=== PATIENT | female | born 1940 | race Caucasian/White ===

== ENCOUNTER 2024-02-07 16:25 | Emergency (ER) | payer OTHER ==
--- OUTSIDE RECORDS SUMMARY | 2024-02-07 16:35 | XMS REPORT | Continuity of Care Document ---
Author Name Unknown Address [address] [facility] [address] [place] [address] [facility] Address [address] [facility] [address] [place] [address] Care Team Providers Care Customer Relations Consultant Name Role Phone Loyda Mcdonough MD Primary Care Physician [phone] LOYDA MCDONOUGH Attending Clinician Unavailable LOYDA MCDONOUGH Attending Clinician Unavailable CAITLYN ROSARIO Attending Clinician UnavailCAITLYN Dunne Attending Clinician UnavailJERRY Nelson Attending Clinician UnavailCaitlyn Dunne MD Attending Clinician [phone] Loyda Mcdonough MD Attending Clinician [phone] Brianna Grant PA-C Attending Clinician [phone] 2, [facility] Attending Clinician Unavailable Kumar Choe PTA Attending Clinician UnavailJerry Rueda MD Attending Clinician [phone] Caitlyn Rosario MD Attending Clinician [phone] Betty Grande MD Attending Clinician [phone] BETTY GRANDE Attending Clinician Unavailable Doctor Unassigned, [place] Attending Clinician U navailraúl Pob, [facility] Main Attending Clinician Unavailchayo mccall Lab, Ang - Db Attending Clinician Unavailable Marko SCHOFIELD, Devaughn Attending Clinician [phone] Ashtyn JESUS, Doron Attending Clinician [phone] Ebleonidas HOT WORT SETTLER, Meseret Attending Clinician [phone] Unknown, Attending Attending Clinician Unavailab MESERET Bay Attending Clinician Unavailable OBI-MARIE, DEVAUGHN Attending Clinician Unavailab jaqueline Nurse, Zuhair Salcedo Attending Clinician Unavailable DORON ORTIZ Attending Clinician Unavailab le 2, [facility] Attending Clinician Unavailable Stacey SCHOFIELD, Jerry Jackson Attending Clinician [phone] Aysha Alonso MD Attending Clinician [phone] TRACEY CEDENO Attending Clinician Unavailable Wilian SCHOFIELD, Tracey Attending Clinician [phone] UNKNOWN, ATTENDING Attending Clinician Unavailab CASSIA Ram Attending Clinician Unavailable Nimflorence HOT WORT SETTLER, Tennille L Attending Clinician [phone] KATIE CORTEZ Attending Clinician Unavailable Cortez PAC, Katie S Attending Clinician [phone] MARITZA BEAR Attending Clinician Unava ilable TENNILLE GARCIA L Attending Clinician Unavailable King REENA MD, Mason Jorge Attending Clinician [phone] Flaquito YU, Vlad Lou Attending Clinician Unavail able VENECIA CALLOWAY Attending Clinician Unavailable Rahul SCHOFIELD, Rene Lou Attending Clinician +- [phone] Venecia Calloway DO Attending Clinician [phone] MARIA DOLORES GAXIOLA Attending Clinician Unavailab Amelia Moore PA-C Attending Clinician [phone] Maria Dolores Lombardi Attending Clinician + [phone] Russel PACKevin Attending Clinician [phone] Nurse, Zuhair [facility] Attending Clinician Un available MINESH STANFORD Attending Clinician Unavail able Cassia Parker MD Attending Clinician [phone] Maritza Bear MD Attending Clinician [phone] Nurse, Pepito Pob Immunization Attending Clinician Unavailable Minesh Stanford DO Attending Clinician [phone] LIAM ROSS Attending Clinician Unavailable LILLI HANSON Attending Clinician Unavailable Raju_P Attending Clinician Unavailable CAITLYN ROSARIO Admitting Clinician UnavailCaitlyn Dunne MD Admitting Clinician [phone] Caitlyn Rosario MD Admitting Clinician [phone] JERRY IBARRA Admitting Clinician UnavailCASSIA Vasques Admitting Clinician Unavailable VENECIA CALLOWAY Admitting Clinician Unavailable Venecia Calloway DO Admitting Clinician [phone] Raju_P Admitting Clinician Unavailable Payers Payer Name Policy Type Policy Number Effective Date Expirati on Date Source MEDICARE PART A \\T\\ B [id number] 2004 00:00:00 FOR LIFE [id number] 2022 00:00:00 FOR LIFE [id number] 2020 00:00:00 FOR LIFE [id number] 2004 00:00:00 [place] [employer] [id number] 2004 00:00:00 [facility] [id number] 2008 00:00:00 Problems Condition Name Condition Details Condition Category Status Onset Date Resolution Date Last Treatment Date Treating Clinician Comments Source Preoperati ve cardiovasc ular examinatio n Preoperati ve cardiovasc ular examinatio n Disease Active 10-23 00:00: 00 [facility] Prediabete s Prediabete s Disease Active 10-23 00:00: 00 [facility] Pre-op testing Pre-op testing Disease Active 09-11 00:00: 00 [facility] Primary osteoarthr itis of left hip Primary osteoarthr itis of left hip Disease Active 09-11 00:00: 00 [facility] Allergic rhinitis Allergic rhinitis Disease Active 07-15 00:00: 00 [facility] 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 Disease Active 07-15 00:00: 00 [facility] Hearing loss Hearing loss Disease Active 07-15 00:00: 00 [facility] Hemangioma Hemangioma Disease Active 07-15 00:00: 00 [facility] Impacted cerumen Impacted cerumen Disease Active 07-15 00:00: 00 [facility] Tinnitus Tinnitus Disease Active 07-15 00:00: 00 [facility] Pneumonia due to COVID-19 virus Pneumonia due to COVID-19 virus Disease Active 2021-04 00:00: 00 [facility] Troponin I above reference range Troponin I above reference range Disease Active 2021-04 00:00: 00 [facility] Other chest pain Other chest pain Disease Active 2021-04 00:00: 00 [facility] Coronaviru s infection Coronaviru s infection Disease Active 2021-04 00:00: 00 [facility] Primary osteoarthr itis of left knee Primary osteoarthr itis of left knee Disease Active 10-27 00:00: 00 [facility] GERD (gastroeso phageal reflux disease) GERD (gastroeso phageal reflux disease) Disease Active 07-02 00:00: 00 [facility] Vitamin D deficiency Vitamin D deficiency Disease Active 07-02 00:00: 00 Overview: Formattin g of this note might be different from the original. ICD10 Diagnosis Term Nut Former Utility [facility] Osteoporos is Osteoporos is Disease Active 07-02 00:00: 00 [facility] Mixed hyperlipid emia Mixed hyperlipid emia Disease Active 07-02 00:00: 00 [facility] Actinic keratosis Actinic keratosis Disease Active 07-02 00:00: 00 [facility] Allergies, Adverse Reactions, Alerts Allergy Name Allergy Type Status Severity Reaction(s) Onset Date Inactive Date Treating Clinician Comments Source NSAIDS (NON-EHSAN ROIDAL ANTI-INF LAMMATOR Y DRUG) Drug Class Active Med Palpitations 9-16 00:00: 00 [facility] Nsaids (Non-Ehsan roidal Anti-Inf lammator y Drug) Propensi ty to adverse reaction s to drug Active Palpitations 16 00:00: 00 [facility] LATEX DRUG INGREDI Active ITCHING 216 00:00: 00 [facility] Latex Propensi ty to adverse reaction s Active Itching 16 00:00: 00 [facility] TRAMADOL DRUG INGREDI Active Dizziness 04-20 00:00: 00 [facility] Tramadol Propensi ty to adverse reaction s Active Nausea and/or Vomiting 04-20 00:00: 00 [facility] CODEINE DRUG INGREDI Active Dizziness 11-08 00:00: 00 [facility] Codeine Propensi ty to adverse reaction s Active Dizziness 11-08 00:00: 00 [facility] Social History Social Habit Start Date Stop Date Quantity Comments Source [facility]ION [facility] Alcoholic beverage intake 2024-01-11 00:00:00 2024-01-11 00:00:00 Current non-drinker of alcohol (finding) [facility] Tobacco use and exposure 2023-09-08 00:00:00 2023-09-08 00:00:00 Smokeless tobacco non-user [facility] History of Social function 2023-05-25 00:00:00 2023-05-25 00:00:00 [facility] Alcohol intake 2023-05-25 00:00:00 2023-05-25 00:00:00 Current non-drinker of alcohol (finding) [facility] Exposure to SARS-CoV-2 (event) 2022-08-28 00:00:00 2022-09-07 11:49:00 Not sure [facility] History SDOH Food Worry 2022-02-23 00:00:00 2022-02-23 00:00:00 1 [facility] History SDOH Food Scarcity 2022-02-23 00:00:00 2022-02-23 00:00:00 1 [facility] History SDOH Transport Med 2022-02-23 00:00:00 2022-02-23 00:00:00 2 [facility] History SDOH Transport Non-Med 2022-02-23 00:00:00 2022-02-23 00:00:00 2 [facility] Tobacco Comment 2022-02-20 00:00:00 2022-02-20 00:00:00 Quit in her 60's [facility] History of tobacco use 1974-04-17 00:00:00 Cigarette Smoker [facility] Sex assigned at 1940 00:00:00 1940 00:00:00 [facility] Smoking Status Start Date Stop Date Source Ex-smoker 2023-09-08 00:00:00 2023-09-08 [facility] Ordered Medication Name Filled Medication Name Start Date Stop Date Current Medication? Ordering Clinician Indication Dosage Frequency Signature (SIG) Comments Components Source HYDROcodone -acetaminop hen 5-325 mg tablet 01-09 00:00: 00 01-17 04:59 :00 Yes [id number] 1{tbl} Take 1 tablet by mouth every 6 (six) hours as needed for Pain (scale 4-6) for up to 7 days. Indication s: acute pain [facility] FENTanyl (PF) (SUBLIMAZE) injection 25 mcg 01-07 16:29: 54 01-07 21:50 :05 No 25ug 25 mcg, Slow IV Push, Q5MIN PRN, 4 doses, Starting on Mon01/08/24 at 1129, Until Mon01/08/24 at 1650, Routine, Pain Scale 4-6, PACU [facility] ondansetron (ZOFRAN (PF)) injection 4 mg 01-07 16:29: 54 01-07 21:50 :05 No 4mg 4 mg, Slow IV Push, PRN, 1 dose, Starting on Mon01/08/24 at 1129, Until Mon01/08/24 at 1650, Routine, Nausea and Vomiting (N/V), PACU [facility] BUPivacaine liposome (PF) (EXPAREL (PF)) 1.3 % (13.3 mg/mL) 266 mg, bupivacaine -epinephrin e-pf (SENSORCAIN E W/EPINEPHRI NE) 0.25 %-1:200,000 30 mL, NaCl 0.9% (NS) 70 mL 01-07 14:56: 00 01-07 16:14 :56 No PRN, Starting on Mon01/08/24 at 0956, Intra-op [facility] sodium chloride 0.9 % irrigation solution 01-07 14:51: 00 01-07 16:14 :56 No PRN, Starting on Mon01/08/24 at 0951, Until Mon01/08/24 at 1114, Intra-op [facility] celecoxib (CELEBREX) capsule 400 mg 01-07 12:45: 00 01-07 12:54 :00 No 400mg 400 mg, Oral, ONCE, 1 dose, On Mon01/08/24 at 0745, Routine, DSU Pre-op [facility] gabapentin (NEURONTIN) capsule 300 mg 01-07 12:45: 00 01-07 12:55 :00 No 300mg 300 mg, Oral, ONCE, 1 dose, On Mon01/08/24 at 0745, Routine, DSU Pre-op [facility] lactated ringers IV infusion 1,000 mL 01-07 12:45: 00 01-07 12:55 :00 No 1000mL at 42 mL/hr, 1,000 mL, IV Infusion, ONCE, 1 dose, On Mon01/08/24 at 0745, Routine, DSU Pre-op [facility] tranexamic acid (CYKLOKAPRO N) 1,000 mg in NaCl 0.9% (NS) 250 mL piggyback 01-07 05:00: 00 01-07 16:59 :00 Yes 1000mg [facility] aspirin 325 mg tablet 01-07 00:00: 00 02-05 04:59 :00 Yes [id number] 325mg Take 1 tablet by mouth in the morning and 1 tablet in the evening. Take with meals. Do all this for 28 days. [facility] HYDROcodone -acetaminop hen 5-325 mg tablet 01-07 00:00: 00 01-08 00:00 :00 No [id number] 1{tbl} Take 1 tablet by mouth every 6 (six) hours as needed for Pain (scale 4-6) or Pain (scale 7-10) for up to 7 days. Indication s: acute pain [facility] dexamethaso ne (DECADRON PHOSPHATE) injection 09-17 14:41: 00 09-17 15:07 :37 No PRN, Starting on Mon09/18/23 at 0941, Until Mon09/18/23 at 1007, Routine, Intra-op [facility] bupivacaine (preserv free) 0.5% (SENSORCAIN E MPF) injection 09-17 14:41: 00 09-17 15:07 :37 No PRN, Starting on Mon09/18/23 at 0941, Until Mon09/18/23 at 1007, Routine, Intra-op [facility] lactated ringers IV infusion 1,000 mL 09-17 14:00: 00 09-17 14:23 :00 No 1000mL at 42 mL/hr, 1,000 mL, IV Infusion, ONCE, 1 dose, On Mon09/18/23 at 0900, Routine, DSU Pre-op [facility] multivitami n tablet 09-17 11:24: 13 Yes 1{tbl} Take 1 tablet by mouth in the morning. Complete women's 50+, [employer] brand. [facility] turmeric root extract 500 mg Cap 09-17 11:24: 13 01-07 00:00 :00 No 500mg Take 500 mg by mouth 2 (two) times daily. [facility] aspirin 81 mg Cap 2-08 08:23: 51 Yes 3{capsu le} Take 3 capsules by mouth at bedtime. [facility] Cholecalcif melissa, Vitamin D3, (VITAMIN D3) 1,000 unit Cap 2-08 08:23: 51 09-07 00:00 :00 No 2000U Take 2 capsules by mouth in the morning. [facility] atorvastati n 20 mg tablet 12-27 00:00: 00 09-07 00:00 :00 No [id number] 20mg Take 1 tablet by mouth at bedtime. [facility] atorvastati n 20 mg tablet 12-21 00:00: 00 Yes [id number] 20mg Take 1 tablet by mouth at bedtime. [facility] Diclofenac Sodium (VOLTAREN) 1 % gel 10-21 00:00: 00 01-07 00:00 :00 No [id number] Take 2-4 grams three times a day as needed for pain [facility] meclizine 25 mg tablet 10-21 00:00: 00 09-07 00:00 :00 No [id number] 25mg Take 1 tablet by mouth 3 (three) times daily as needed for Dizziness or Nausea. [facility] NaCl 0.9% (NS) bolus infusion 1,000 mL 10-16 17:30: 00 10-16 17:57 :00 No 1000mL at 999 mL/hr, 1,000 mL, IV Infusion, ONCE, 1 dose, On 10/16/22 at 1230, VICTORIA [facility] meclizine (TRAVEL-EAS E (MECLIZINE) ) tablet 25 mg 10-16 16:45: 00 10-16 16:53 :00 No 25mg 25 mg, Oral, ONCE, 1 dose, On 10/16/22 at 1145, VICTORIA [facility] aspirin 81 mg Cap 10-16 15:40: 18 09-07 00:00 :00 No 3{capsu le} Take 3 capsules by mouth at bedtime. [facility] turmeric root extract 500 mg Cap 05 09:39: 06 Yes 500mg Take 500 mg by mouth 2 (two) times daily. [facility] loratadine 10 mg tablet 07-20 09:39: 06 Yes 10mg Take 1 tablet by mouth in the morning. [facility] turmeric root extract 500 mg Cap 07-20 09:39: 06 Yes 500mg Take 500 mg by mouth 2 (two) times daily. [facility] cyclobenzap rine 10 mg tablet 04-20 00:00: 00 09-07 00:00 :00 No [id number] 10mg Take 1 tablet by mouth at bedtime. [facility] predniSONE 20 mg tablet 2021-04 00:00: 00 04-20 00:00 :00 No [id number] 20mg Take 1 tablet by mouth in the morning. [facility] bromphenira mine-pseudo ephedrine-D M (BROMFED DM) 2-30-10 mg/5 mL syrup 2021-04 00:00: 00 04-20 00:00 :00 No [id number] 5mL Take 5 mL by mouth 3 (three) times daily as needed for Congestion /Allergies or Cough. [facility] zinc sulfate 50 mg zinc (220 mg) capsule 2021-04 00:00: 00 03-03 05:59 :00 No [id number] 50mg Take 1 capsule by mouth in the morning for 7 days. [facility] multivitami n tablet 2021-04 18:08: 11 Yes 1{tbl} Take 1 tablet by mouth daily. Complete women's 50+, [employer] brand. [facility] Cholecalcif melissa, Vitamin D3, (VITAMIN D3) 1,000 unit Cap 2021-04 18:08: 11 Yes 2{capsu le} Take 2 Caps by mouth daily. [facility] turmeric root extract 500 mg Cap 2021-04 18:08: 11 Yes 500mg Take 500 mg by mouth 2 (two) times daily. [facility] loratadine 10 mg tablet 2021-04 18:08: 11 09-07 00:00 :00 No 10mg Take 1 tablet by mouth in the morning. [facility] benzonatate 100 mg capsule 2021-04 00:00: 00 03-25 05:59 :00 No [id number] 200mg Take 2 capsules by mouth every 8 (eight) hours as needed for Cough for up to 30 days. [facility] ascorbic acid, vitamin C, 500 mg tablet 2021-04 00:00: 00 03-02 05:59 :00 No [id number] 500mg Take 1 tablet by mouth in the morning for 7 days. [facility] cholecalcif melissa (vitamin D3) tablet 2,000 Units 2021-04 15:00: 00 Yes 2000U 2,000 Units, Oral, DAILY, First dose (after last modificati on) on Mon02/21/22 at 0900, Until Discontinu ed, Routine [facility] aspirin chewable tablet 81 mg 2021-04 15:00: 00 Yes 81mg 81 mg, Oral, DAILY, First dose on Mon02/21/22 at 0900, Until Discontinu ed, Routine [facility] aspirin tablet 325 mg 2021-04 15:00: 00 02-21 02:12 :48 No 325mg 325 mg, Oral, DAILY, First dose on Mon02/21/22 at 0900, Until Discontinu ed, Routine [facility] aspirin tablet 325 mg 2021-04 03:00: 00 02-21 02:54 :00 No 325mg 325 mg, Oral, ONCE, 1 dose, On 02/20/22 at 2100, Routine [facility] zinc sulfate (ORAZINC) capsule 50 mg 2021-04 02:45: 00 Yes 50mg 50 mg, Oral, DAILY, First dose on 02/20/22 at 2045, Until Discontinu ed, Routine [facility] ascorbic acid (vitamin C) (VITAMIN C) tablet 500 mg 2021-04 02:45: 00 Yes 500mg 500 mg, Oral, BID, First dose on 02/20/22 at 2044, Until Discontinu ed, [facility] azithromy[facility] (ZITHROMAX) tablet 500 mg 2021-04 02:45: 00 02-22 17:25 :08 No 500mg 500 mg, Oral, DAILY, 5 doses, First dose on Mon02/20/22 at 204, Last dose on Mon02/24/22 at 0900, VICTORIA
Re ason for Anti-Infec tive: Empiric Therapy for Suspected Infection< br>Empiric Therapy Site: Respirator y
Durat ion of therapy: 5 days [facility] cholecalcif melissa (vitamin D3) tablet 1,000 Units 2021-04 02:45: 00 02-21 03:30 :16 No 1000U 1,000 Units, Oral, DAILY, First dose on 02/20/22 at 2044, Until Discontinu ed, Routine [facility] acetaminoph en (TYLENOL) tablet 650 mg 2021-04 02:36: 50 Yes 650mg 650 mg, Oral, Q6HPRN, Starting on 02/20/22 at 2035, Until Discontinu ed, Routine, Temp > 38.5 C, Pain (scale 1-3) [facility] dextrometho rphan-guaif enesin (ROBITUSSIN DM) 10-100 mg/5 mL solution 10 mL 2021-04 02:36: 38 Yes 10mL 10 mL, Oral, Q6HPRN, Starting on 02/20/22 at 2035, Until Discontinu ed, Routine, Cough [facility] enoxaparin (LOVENOX) injection 40 mg 2021-04 23:00: 00 Yes 40mg 40 mg, Subcutaneo us, DAILY, First dose on 02/20/22 at 1700, Until Discontinu ed, Routine [facility] ibuprofen (MOTRIN IB) tablet 200 mg 2021-04 22:34: 41 Yes 200mg 200 mg, Oral, Q4HPRN, Starting on 02/20/22 at 1634, Until Discontinu ed, Routine, Temp > 38.5 C [facility] NaCl 0.9% (NS) IV infusion 1,000 mL 2021-04 19:45: 00 02-21 14:00 :49 No 1000mL at 125 mL/hr, IV Infusion, CONTINUOUS , Starting on 02/20/22 at 1345, Until 02/21/22 at 0800, Routine [facility] iopamidol (ISOVUE 370-500 mL) injection 100 mL 2021-04 19:30: 00 02-20 19:45 :00 No [id number] 100mL 100 mL, Intravenou s, ONCE, 1 dose, On 02/20/22 at 1345, Routine [facility] molnupiravi r 200 mg capsule 2021-04 00:00: 00 02-22 00:00 :00 No [id number] 800mg Take 4 capsules by mouth every 12 (twelve) hours. [facility] benzonatate 100 mg capsule 2021-04 00:00: 00 02-22 00:00 :00 No [id number] 200mg Take 2 capsules by mouth every 8 (eight) hours as needed for Cough. [facility] multivitami n tablet 04-20 08:27: 15 Yes 1{tbl} Take 1 tablet by mouth daily. Complete women's 50+, [employer] brand. [facility] Cholecalcif melissa, Vitamin D3, (VITAMIN D3) 1,000 unit Cap 04-20 08:27: 15 Yes 2{capsu le} Take 2 Caps by mouth daily. [facility] turmeric root extract 500 mg Cap 04-20 08:27: 15 Yes 500mg Take 500 mg by mouth 2 (two) times daily. [facility] loratadine 10 mg tablet 04-20 08:27: 15 Yes 10mg Take 10 mg by mouth daily. [facility] mupirocin 2 % ointment 04-20 00:00: 00 09-07 00:00 :00 No [id number] Apply to area(s) 3 (three) times daily. [facility] Diclofenac Sodium (VOLTAREN) 1 % gel 04-20 00:00: 00 10-21 00:00 :00 No [id number] 2g gel BID to Left knee. [facility] triamcinolo ne (NASACORT) 55 mcg nasal inhaler 2017-04 00:00: 00 Yes [id number] 2{spray } Use 2 Sprays in each nostril daily. [facility] cycloSPORIN E 0.05 % drops 2016-04 00:00: 00 Yes [id number] 1[drp] Place 1 Drop in both eyes every 12 (twelve) hours. [facility] Immunizations Ordered Immunization Name Filled Immunization Name Date Status Comments Source Influenza Virus Vaccine,quad Im,preserve Free 65+ (FLUAD) 2023-01-20 00:00:00 Completed [facility] Influenza Virus Vaccine,quad Im,preserve Free 65+ (FLUAD) 2023-01-20 00:00:00 Completed [facility] Influenza Virus Vaccine,quad Im,preserve Free 65+ (FLUAD) 2023-01-20 00:00:00 Completed [facility] Remdesivir 2022-02-22 00:00:00 Completed [facility] Remdesivir 2022-02-22 00:00:00 Completed [facility] Remdesivir 2022-02-22 00:00:00 Completed [facility] Remdesivir 2022-02-22 00:00:00 Completed [facility] Remdesivir 2022-02-22 00:00:00 Completed [facility] Remdesivir 2022-02-22 00:00:00 Completed [facility] Remdesivir 2022-02-22 00:00:00 Completed [facility] Remdesivir 2022-02-22 00:00:00 Completed [facility] Remdesivir 2022-02-22 00:00:00 Completed [facility] Remdesivir 2022-02-22 00:00:00 Completed [facility] Remdesivir 2022-02-22 00:00:00 Completed [facility] Remdesivir 2022-02-22 00:00:00 Completed [facility] Remdesivir 2022-02-22 00:00:00 Completed [facility] Remdesivir 2022-02-22 00:00:00 Completed [facility] Remdesivir 2022-02-22 00:00:00 Completed [facility] Remdesivir 2022-02-22 00:00:00 Completed [facility] Remdesivir 2022-02-22 00:00:00 Completed [facility] Remdesivir 2022-02-22 00:00:00 Completed [facility] Remdesivir 2022-02-22 00:00:00 Completed [facility] Remdesivir 2022-02-22 00:00:00 Completed [facility] Remdesivir 2022-02-22 00:00:00 Completed [facility] Remdesivir 2022-02-22 00:00:00 Completed [facility] Remdesivir 2022-02-22 00:00:00 Completed [facility] Remdesivir 2022-02-22 00:00:00 Completed [facility] Remdesivir 2022-02-22 00:00:00 Completed [facility] Remdesivir 2022-02-22 00:00:00 Completed [facility] Remdesivir 2022-02-22 00:00:00 Completed [facility] Remdesivir 2022-02-21 00:00:00 Completed [facility] Remdesivir 2022-02-21 00:00:00 Completed [facility] Remdesivir 2022-02-21 00:00:00 Completed [facility] Remdesivir 2022-02-21 00:00:00 Completed [facility] Remdesivir 2022-02-21 00:00:00 Completed [facility] Remdesivir 2022-02-21 00:00:00 Completed [facility] Remdesivir 2022-02-21 00:00:00 Completed [facility] Remdesivir 2022-02-21 00:00:00 Completed [facility] Remdesivir 2022-02-21 00:00:00 Completed [facility] Remdesivir 2022-02-21 00:00:00 Completed [facility] Remdesivir 2022-02-21 00:00:00 Completed [facility] Remdesivir 2022-02-21 00:00:00 Completed [facility] Remdesivir 2022-02-21 00:00:00 Completed [facility] Remdesivir 2022-02-21 00:00:00 Completed [facility] Remdesivir 2022-02-21 00:00:00 Completed [facility] Remdesivir 2022-02-21 00:00:00 Completed [facility] Remdesivir 2022-02-21 00:00:00 Completed [facility] Remdesivir 2022-02-21 00:00:00 Completed [facility] Remdesivir 2022-02-21 00:00:00 Completed [facility] Remdesivir 2022-02-21 00:00:00 Completed [facility] Remdesivir 2022-02-21 00:00:00 Completed Remdesivir 2022-02-21 00:00:00 Completed Remdesivir 2022-02-21 00:00:00 Completed Remdesivir 2022-02-21 00:00:00 Completed [facility] Remdesivir 2022-02-21 00:00:00 Completed [facility] Remdesivir 2022-02-21 00:00:00 Completed [facility] Remdesivir 2022-02-20 00:00:00 Completed [facility] Remdesivir 2022-02-20 00:00:00 Completed [facility] Remdesivir 2022-02-20 00:00:00 Completed [facility] Remdesivir 2022-02-20 00:00:00 Completed [facility] Remdesivir 2022-02-20 00:00:00 Completed [facility] Remdesivir 2022-02-20 00:00:00 Completed [facility] Remdesivir 2022-02-20 00:00:00 Completed [facility] Remdesivir 2022-02-20 00:00:00 Completed [facility] Remdesivir 2022-02-20 00:00:00 Completed [facility] Remdesivir 2022-02-20 00:00:00 Completed [facility] Remdesivir 2022-02-20 00:00:00 Completed [facility] Remdesivir 2022-02-20 00:00:00 Completed [facility] Remdesivir 2022-02-20 00:00:00 Completed [facility] Remdesivir 2022-02-20 00:00:00 Completed [facility] Remdesivir 2022-02-20 00:00:00 Completed [facility] Remdesivir 2022-02-20 00:00:00 Completed [facility] Remdesivir 2022-02-20 00:00:00 Completed [facility] Remdesivir 2022-02-20 00:00:00 Completed [facility] Remdesivir 2022-02-20 00:00:00 Completed [facility] Remdesivir 2022-02-20 00:00:00 Completed [facility] Remdesivir 2022-02-20 00:00:00 Completed [facility] Remdesivir 2022-02-20 00:00:00 Completed [facility] Remdesivir 2022-02-20 00:00:00 Completed [facility] Remdesivir 2022-02-20 00:00:00 Completed [facility] Remdesivir 2022-02-20 00:00:00 Completed [facility] Remdesivir 2022-02-20 00:00:00 Completed [facility] Influenza High Dose Quad 2021-12-18 00:00:00 Completed [facility] Influenza High Dose Quad 2021-12-18 00:00:00 Completed [facility] Influenza High Dose Quad 2021-12-18 00:00:00 Completed [facility] Influenza High Dose Quad 2021-12-18 00:00:00 Completed [facility] Influenza High Dose Quad 2021-12-18 00:00:00 Completed [facility] Influenza High Dose Quad 2021-12-18 00:00:00 Completed [facility] Influenza High Dose Quad 2021-12-18 00:00:00 Completed [facility] Influenza High Dose Quad 2021-12-18 00:00:00 Completed [facility] Influenza High Dose Quad 2021-12-18 00:00:00 Completed [facility] Influenza High Dose Quad 2021-12-18 00:00:00 Completed [facility] Influenza High Dose Quad 2021-12-18 00:00:00 Completed [facility] Influenza High Dose Quad 2021-12-18 00:00:00 Completed [facility] Influenza High Dose Quad 2021-12-18 00:00:00 Completed Influenza High Dose Quad 2021-12-18 00:00:00 Completed Influenza High Dose Quad 2021-12-18 00:00:00 Completed SARS-COV-2 COVID-19 MODERNA 0.25ML BOOSTER VACCINE 2021-02-09 00:00:00 Completed [facility] SARS-COV-2 COVID-19 MODERNA 0.25ML BOOSTER VACCINE 2021-02-09 00:00:00 Completed [facility] SARS-COV-2 COVID-19 MODERNA 0.25ML BOOSTER VACCINE 2021-02-09 00:00:00 Completed [facility] SARS-COV-2 COVID-19 MODERNA 0.25ML BOOSTER VACCINE 2021-02-09 00:00:00 Completed [facility] SARS-COV-2 COVID-19 MODERNA 0.25ML BOOSTER VACCINE 2021-02-09 00:00:00 Completed [facility] SARS-COV-2 COVID-19 MODERNA 0.25ML BOOSTER VACCINE 2021-02-09 00:00:00 Completed [facility] SARS-COV-2 COVID-19 MODERNA 0.25ML BOOSTER VACCINE 2021-02-09 00:00:00 Completed [facility] SARS-COV-2 COVID-19 MODERNA 0.25ML BOOSTER VACCINE 2021-02-09 00:00:00 Completed [facility] SARS-COV-2 COVID-19 MODERNA 0.25ML BOOSTER VACCINE 2021-02-09 00:00:00 Completed [facility] SARS-COV-2 COVID-19 MODERNA 0.25ML BOOSTER VACCINE 2021-02-09 00:00:00 Completed [facility] SARS-COV-2 COVID-19 MODERNA 0.25ML BOOSTER VACCINE 2021-02-09 00:00:00 Completed [facility] SARS-COV-2 COVID-19 MODERNA 0.25ML BOOSTER VACCINE 2021-02-09 00:00:00 Completed [facility] SARS-COV-2 COVID-19 MODERNA 0.25ML BOOSTER VACCINE 2021-02-09 00:00:00 Completed [facility] SARS-COV-2 COVID-19 MODERNA 0.25ML BOOSTER VACCINE 2021-02-09 00:00:00 Completed [facility] SARS-COV-2 COVID-19 MODERNA 0.25ML BOOSTER VACCINE 2021-02-09 00:00:00 Completed [facility] SARS-COV-2 COVID-19 MODERNA 0.25ML BOOSTER VACCINE 2021-02-09 00:00:00 Completed [facility] SARS-COV-2 COVID-19 MODERNA 0.25ML BOOSTER VACCINE 2021-02-09 00:00:00 Completed [facility] SARS-COV-2 COVID-19 MODERNA 0.25ML BOOSTER VACCINE 2021-02-09 00:00:00 Completed [facility] SARS-COV-2 COVID-19 MODERNA 0.25ML BOOSTER VACCINE 2021-02-09 00:00:00 Completed [facility] SARS-COV-2 COVID-19 MODERNA 0.25ML BOOSTER VACCINE 2021-02-09 00:00:00 Completed [facility] SARS-COV-2 COVID-19 MODERNA 0.25ML BOOSTER VACCINE 2021-02-09 00:00:00 Completed [facility] SARS-COV-2 COVID-19 MODERNA 0.25ML BOOSTER VACCINE 2021-02-09 00:00:00 Completed [facility] SARS-COV-2 COVID-19 MODERNA 0.25ML BOOSTER VACCINE 2021-02-09 00:00:00 Completed [facility] SARS-COV-2 COVID-19 MODERNA BOOSTER VACCINE 2021-02-09 00:00:00 Completed [facility] SARS-COV-2 COVID-19 MODERNA BOOSTER VACCINE 2021-02-09 00:00:00 Completed [facility] SARS-COV-2 COVID-19 MODERNA BOOSTER VACCINE 2021-02-09 00:00:00 Completed [facility] SARS-COV-2 COVID-19 MODERNA BOOSTER VACCINE 2021-02-09 00:00:00 Completed [facility] SARS-COV-2 COVID-19 MODERNA BOOSTER VACCINE 2021-02-09 00:00:00 Completed [facility] SARS-COV-2 COVID-19 MODERNA 0.25ML BOOSTER VACCINE 2021-02-09 00:00:00 Completed [facility] SARS-COV-2 COVID-19 MODERNA 0.25ML BOOSTER VACCINE 2021-02-09 00:00:00 Completed [facility] SARS-COV-2 COVID-19 MODERNA 0.25ML BOOSTER VACCINE 2021-02-09 00:00:00 Completed [facility] SARS-COV-2 COVID-19 MODERNA 0.25ML BOOSTER VACCINE 2021-02-09 00:00:00 Completed [facility] SARS-COV-2 COVID-19 MODERNA 0.25ML BOOSTER VACCINE 2021-02-09 00:00:00 Completed [facility] Influenza High Dose Quad 2021-01-09 00:00:00 Completed [facility] Influenza High Dose Quad 2021-01-09 00:00:00 Completed [facility] Influenza High Dose Quad 2021-01-09 00:00:00 Completed [facility] Influenza High Dose Quad 2021-01-09 00:00:00 Completed [facility] Influenza High Dose Quad 2021-01-09 00:00:00 Completed [facility] Influenza High Dose Quad 2021-01-09 00:00:00 Completed [facility] Influenza High Dose Quad 2021-01-09 00:00:00 Completed [facility] Influenza High Dose Quad 2021-01-09 00:00:00 Completed [facility] Influenza High Dose Quad 2021-01-09 00:00:00 Completed [facility] Influenza High Dose Quad 2021-01-09 00:00:00 Completed [facility] Influenza High Dose Quad 2021-01-09 00:00:00 Completed [facility] Influenza High Dose Quad 2021-01-09 00:00:00 Completed [facility] Influenza High Dose Quad 2021-01-09 00:00:00 Completed [facility] Influenza High Dose Quad 2021-01-09 00:00:00 Completed Influenza High Dose Quad 2021-01-09 00:00:00 Completed Influenza High Dose Quad 2021-01-09 00:00:00 Completed Influenza High Dose 2020-12-16 00:00:00 Completed [facility] Influenza High Dose 2020-12-16 00:00:00 Completed [facility] Influenza High Dose 2020-12-16 00:00:00 Completed [facility] Influenza High Dose 2020-12-16 00:00:00 Completed [facility] Influenza High Dose 2020-12-16 00:00:00 Completed [facility] Influenza High Dose 2020-12-16 00:00:00 Completed [facility] Influenza High Dose 2020-12-16 00:00:00 Completed [facility] Influenza High Dose 2020-12-16 00:00:00 Completed [facility] Influenza High Dose 2020-12-16 00:00:00 Completed [facility] Influenza High Dose 2020-12-16 00:00:00 Completed [facility] Influenza High Dose 2020-12-16 00:00:00 Completed [facility] Influenza High Dose 2020-12-16 00:00:00 Completed [facility] Influenza High Dose 2020-12-16 00:00:00 Completed [facility] Influenza High Dose 2020-12-16 00:00:00 Completed [facility] Influenza High Dose 2020-12-16 00:00:00 Completed [facility] Influenza High Dose 2020-12-16 00:00:00 Completed [facility] Influenza High Dose 2020-12-16 00:00:00 Completed [facility] Influenza High Dose 2020-12-16 00:00:00 Completed [facility] Influenza High Dose 2020-12-16 00:00:00 Completed [facility] Influenza High Dose 2020-12-16 00:00:00 Completed [facility] Influenza High Dose 2020-12-16 00:00:00 Completed [facility] Influenza, High-Dose, Trivalent, PF (FLUZONE) 2020-12-16 00:00:00 Completed Influenza, High-Dose, Trivalent, PF (FLUZONE) 2020-12-16 00:00:00 Completed Influenza, High-Dose, Trivalent, PF (FLUZONE) 2020-12-16 00:00:00 Completed Influenza High Dose 2020-12-16 00:00:00 Completed [facility] Influenza High Dose 2020-12-16 00:00:00 Completed [facility] Influenza High Dose 2020-12-16 00:00:00 Completed [facility] Influenza High Dose 2020-12-16 00:00:00 Completed [facility] Influenza High Dose 2020-12-16 00:00:00 Completed [facility] Influenza High Dose 2020-12-16 00:00:00 Completed [facility] Influenza High Dose 2020-12-16 00:00:00 Completed [facility] Influenza High Dose 2020-12-16 00:00:00 Completed [facility] Influenza High Dose 2020-12-16 00:00:00 Completed [facility] Influenza High Dose 2020-12-16 00:00:00 Completed [facility] TDAP 2020-08-21 00:00:00 Completed [facility] TDAP 2020-08-21 00:00:00 Completed [facility] TDAP 2020-08-21 00:00:00 Completed [facility] TDAP 2020-08-21 00:00:00 Completed [facility] TDAP 2020-08-21 00:00:00 Completed [facility] TDAP 2020-08-21 00:00:00 Completed [facility] TDAP 2020-08-21 00:00:00 Completed [facility] TDAP 2020-08-21 00:00:00 Completed [facility] TDAP 2020-08-21 00:00:00 Completed [facility] TDAP 2020-08-21 00:00:00 Completed [facility] TDAP 2020-08-21 00:00:00 Completed [facility] TDAP 2020-08-21 00:00:00 Completed [facility] TDAP 2020-08-21 00:00:00 Completed [facility] TDAP 2020-08-21 00:00:00 Completed [facility] TDAP 2020-08-21 00:00:00 Completed [facility] TDAP 2020-08-21 00:00:00 Completed [facility] TDAP 2020-08-21 00:00:00 Completed [facility] TDAP 2020-08-20 00:00:00 Completed [facility] TDAP 2020-08-20 00:00:00 Completed [facility] TDAP 2020-08-20 00:00:00 Completed [facility] TDAP 2020-08-20 00:00:00 Completed [facility] TDAP 2020-08-20 00:00:00 Completed [facility] TDAP 2020-08-20 00:00:00 Completed [facility] TDAP 2020-08-20 00:00:00 Completed [facility] TDAP 2020-08-20 00:00:00 Completed [facility] TDAP 2020-08-20 00:00:00 Completed [facility] TDAP 2020-08-20 00:00:00 Completed [facility] TDAP 2020-08-20 00:00:00 Completed [facility] TDAP 2020-08-20 00:00:00 Completed [facility] TDAP 2020-08-20 00:00:00 Completed [facility] TDAP 2020-08-20 00:00:00 Completed [facility] TDAP 2020-08-20 00:00:00 Completed TDAP 2020-08-20 00:00:00 Completed TDAP 2020-08-20 00:00:00 Completed SARS-COV-2 COVID-19 MODERNA 12+ YRS VACCINE 2020-05-19 00:00:00 Completed [facility] SARS-COV-2 COVID-19 MODERNA 12+ YRS VACCINE 2020-05-19 00:00:00 Completed [facility] SARS-COV-2 COVID-19 MODERNA 12+ YRS VACCINE 2020-05-19 00:00:00 Completed [facility] SARS-COV-2 COVID-19 MODERNA 12+ YRS VACCINE 2020-05-19 00:00:00 Completed [facility] SARS-COV-2 COVID-19 MODERNA 12+ YRS VACCINE 2020-05-19 00:00:00 Completed [facility] SARS-COV-2 COVID-19 MODERNA 12+ YRS VACCINE 2020-05-19 00:00:00 Completed [facility] SARS-COV-2 COVID-19 MODERNA 12+ YRS VACCINE 2020-05-19 00:00:00 Completed [facility] SARS-COV-2 COVID-19 MODERNA 12+ YRS VACCINE 2020-05-19 00:00:00 Completed [facility] SARS-COV-2 COVID-19 MODERNA 12+ YRS VACCINE 2020-05-19 00:00:00 Completed [facility] SARS-COV-2 COVID-19 MODERNA 12+ YRS VACCINE 2020-05-19 00:00:00 Completed [facility] SARS-COV-2 COVID-19 MODERNA 12+ YRS VACCINE 2020-05-19 00:00:00 Completed [facility] SARS-COV-2 COVID-19 MODERNA 12+ YRS VACCINE 2020-05-19 00:00:00 Completed [facility] SARS-COV-2 COVID-19 MODERNA 12+ YRS VACCINE 2020-05-19 00:00:00 Completed [facility] SARS-COV-2 COVID-19 MODERNA 12+ YRS VACCINE 2020-05-19 00:00:00 Completed [facility] SARS-COV-2 COVID-19 MODERNA 12+ YRS VACCINE 2020-05-19 00:00:00 Completed [facility] SARS-COV-2 COVID-19 MODERNA 12+ YRS VACCINE 2020-05-19 00:00:00 Completed [facility] SARS-COV-2 COVID-19 MODERNA 12+ YRS VACCINE 2020-05-19 00:00:00 Completed [facility] SARS-COV-2 COVID-19 MODERNA 12+ YRS VACCINE 2020-05-19 00:00:00 Completed [facility] SARS-COV-2 COVID-19 MODERNA 12+ YRS VACCINE 2020-05-19 00:00:00 Completed [facility] SARS-COV-2 COVID-19 MODERNA 12+ YRS VACCINE 2020-05-19 00:00:00 Completed [facility] SARS-COV-2 COVID-19 MODERNA 12+ YRS VACCINE 2020-05-19 00:00:00 Completed [facility] SARS-COV-2 COVID-19 MODERNA 12+ YRS VACCINE 2020-05-19 00:00:00 Completed SARS-COV-2 COVID-19 MODERNA 12+ YRS VACCINE 2020-05-19 00:00:00 Completed SARS-COV-2 COVID-19 MODERNA 12+ YRS VACCINE 2020-05-19 00:00:00 Completed SARS-COV-2 COVID-19 MODERNA VACCINE 2020-05-19 00:00:00 Completed [facility] SARS-COV-2 COVID-19 MODERNA VACCINE 2020-05-19 00:00:00 Completed [facility] SARS-COV-2 COVID-19 MODERNA VACCINE 2020-05-19 00:00:00 Completed [facility] SARS-COV-2 COVID-19 MODERNA VACCINE 2020-05-19 00:00:00 Completed [facility] SARS-COV-2 COVID-19 MODERNA VACCINE 2020-05-19 00:00:00 Completed [facility] SARS-COV-2 COVID-19 MODERNA 12+ YRS VACCINE 2020-05-19 00:00:00 Completed [facility] SARS-COV-2 COVID-19 MODERNA 12+ YRS VACCINE 2020-05-19 00:00:00 Completed [facility] SARS-COV-2 COVID-19 MODERNA 12+ YRS VACCINE 2020-05-19 00:00:00 Completed [facility] SARS-COV-2 COVID-19 MODERNA 12+ YRS VACCINE 2020-05-19 00:00:00 Completed [facility] SARS-COV-2 COVID-19 MODERNA 12+ YRS VACCINE 2020-05-19 00:00:00 Completed [facility] SARS-COV-2 COVID-19 MODERNA 12+ YRS VACCINE 2020-04-21 00:00:00 Completed [facility] SARS-COV-2 COVID-19 MODERNA 12+ YRS VACCINE 2020-04-21 00:00:00 Completed [facility] SARS-COV-2 COVID-19 MODERNA 12+ YRS VACCINE 2020-04-21 00:00:00 Completed [facility] SARS-COV-2 COVID-19 MODERNA 12+ YRS VACCINE 2020-04-21 00:00:00 Completed [facility] SARS-COV-2 COVID-19 MODERNA 12+ YRS VACCINE 2020-04-21 00:00:00 Completed [facility] SARS-COV-2 COVID-19 MODERNA 12+ YRS VACCINE 2020-04-21 00:00:00 Completed [facility] SARS-COV-2 COVID-19 MODERNA 12+ YRS VACCINE 2020-04-21 00:00:00 Completed [facility] SARS-COV-2 COVID-19 MODERNA 12+ YRS VACCINE 2020-04-21 00:00:00 Completed [facility] SARS-COV-2 COVID-19 MODERNA 12+ YRS VACCINE 2020-04-21 00:00:00 Completed [facility] SARS-COV-2 COVID-19 MODERNA 12+ YRS VACCINE 2020-04-21 00:00:00 Completed [facility] SARS-COV-2 COVID-19 MODERNA 12+ YRS VACCINE 2020-04-21 00:00:00 Completed [facility] SARS-COV-2 COVID-19 MODERNA 12+ YRS VACCINE 2020-04-21 00:00:00 Completed [facility] SARS-COV-2 COVID-19 MODERNA 12+ YRS VACCINE 2020-04-21 00:00:00 Completed [facility] SARS-COV-2 COVID-19 MODERNA 12+ YRS VACCINE 2020-04-21 00:00:00 Completed [facility] SARS-COV-2 COVID-19 MODERNA 12+ YRS VACCINE 2020-04-21 00:00:00 Completed [facility] SARS-COV-2 COVID-19 MODERNA 12+ YRS VACCINE 2020-04-21 00:00:00 Completed [facility] SARS-COV-2 COVID-19 MODERNA 12+ YRS VACCINE 2020-04-21 00:00:00 Completed [facility] SARS-COV-2 COVID-19 MODERNA 12+ YRS VACCINE 2020-04-21 00:00:00 Completed [facility] SARS-COV-2 COVID-19 MODERNA 12+ YRS VACCINE 2020-04-21 00:00:00 Completed [facility] SARS-COV-2 COVID-19 MODERNA 12+ YRS VACCINE 2020-04-21 00:00:00 Completed [facility] SARS-COV-2 COVID-19 MODERNA 12+ YRS VACCINE 2020-04-21 00:00:00 Completed [facility] SARS-COV-2 COVID-19 MODERNA 12+ YRS VACCINE 2020-04-21 00:00:00 Completed [facility] SARS-COV-2 COVID-19 MODERNA 12+ YRS VACCINE 2020-04-21 00:00:00 Completed [facility] SARS-COV-2 COVID-19 MODERNA VACCINE 2020-04-21 00:00:00 Completed [facility] SARS-COV-2 COVID-19 MODERNA VACCINE 2020-04-21 00:00:00 Completed [facility] SARS-COV-2 COVID-19 MODERNA VACCINE 2020-04-21 00:00:00 Completed [facility] SARS-COV-2 COVID-19 MODERNA VACCINE 2020-04-21 00:00:00 Completed [facility] SARS-COV-2 COVID-19 MODERNA VACCINE 2020-04-21 00:00:00 Completed [facility] SARS-COV-2 COVID-19 MODERNA 12+ YRS VACCINE 2020-04-21 00:00:00 Completed [facility] SARS-COV-2 COVID-19 MODERNA 12+ YRS VACCINE 2020-04-21 00:00:00 Completed [facility] SARS-COV-2 COVID-19 MODERNA 12+ YRS VACCINE 2020-04-21 00:00:00 Completed [facility] SARS-COV-2 COVID-19 MODERNA 12+ YRS VACCINE 2020-04-21 00:00:00 Completed [facility] SARS-COV-2 COVID-19 MODERNA 12+ YRS VACCINE 2020-04-21 00:00:00 Completed [facility] Influenza High Dose Quad 2020-01-11 00:00:00 Completed [facility] Influenza High Dose Quad 2020-01-11 00:00:00 Completed [facility] Influenza High Dose Quad 2020-01-11 00:00:00 Completed [facility] Influenza High Dose Quad 2020-01-11 00:00:00 Completed [facility] Influenza High Dose Quad 2020-01-11 00:00:00 Completed [facility] Influenza High Dose Quad 2020-01-11 00:00:00 Completed [facility] Influenza High Dose Quad 2020-01-11 00:00:00 Completed [facility] Influenza High Dose Quad 2020-01-11 00:00:00 Completed [facility] Influenza High Dose Quad 2020-01-11 00:00:00 Completed [facility] Influenza High Dose Quad 2020-01-11 00:00:00 Completed [facility] Influenza High Dose Quad 2020-01-11 00:00:00 Completed [facility] Influenza High Dose Quad 2020-01-11 00:00:00 Completed [facility] Influenza High Dose Quad 2020-01-11 00:00:00 Completed [facility] Influenza High Dose Quad 2020-01-11 00:00:00 Completed [facility] Influenza High Dose Quad 2020-01-11 00:00:00 Completed [facility] Influenza High Dose Quad 2020-01-11 00:00:00 Completed [facility] Influenza High Dose Quad 2020-01-11 00:00:00 Completed [facility] Influenza High Dose Quad 2020-01-11 00:00:00 Completed [facility] Influenza High Dose Quad 2020-01-11 00:00:00 Completed [facility] Influenza High Dose Quad 2020-01-11 00:00:00 Completed [facility] Influenza High Dose Quad 2020-01-11 00:00:00 Completed Influenza High Dose Quad 2020-01-11 00:00:00 Completed Influenza High Dose Quad 2020-01-11 00:00:00 Completed Influenza High Dose Quad 2020-01-11 00:00:00 Completed [facility] Influenza High Dose Quad 2020-01-11 00:00:00 Completed [facility] Influenza High Dose Quad 2020-01-11 00:00:00 Completed [facility] Influenza High Dose Quad 2020-01-11 00:00:00 Completed [facility] Influenza High Dose Quad 2020-01-11 00:00:00 Completed [facility] Influenza High Dose Quad 2020-01-11 00:00:00 Completed [facility] Influenza High Dose Quad 2020-01-11 00:00:00 Completed [facility] Influenza High Dose Quad 2020-01-11 00:00:00 Completed [facility] Influenza High Dose Quad 2020-01-11 00:00:00 Completed [facility] Influenza High Dose Quad 2020-01-11 00:00:00 Completed [facility] Influenza High Dose 2018-12-17 00:00:00 Completed [facility] Influenza High Dose 2018-12-17 00:00:00 Completed [facility] Influenza High Dose 2018-12-17 00:00:00 Completed [facility] Influenza High Dose 2018-12-17 00:00:00 Completed [facility] Influenza High Dose 2018-12-17 00:00:00 Completed [facility] Influenza High Dose 2018-12-17 00:00:00 Completed [facility] Influenza High Dose 2018-12-17 00:00:00 Completed [facility] Influenza High Dose 2018-12-17 00:00:00 Completed [facility] Influenza High Dose 2018-12-17 00:00:00 Completed [facility] Influenza High Dose 2018-12-17 00:00:00 Completed [facility] Influenza High Dose 2018-12-17 00:00:00 Completed [facility] Influenza High Dose 2018-12-17 00:00:00 Completed [facility] Influenza High Dose 2018-12-17 00:00:00 Completed [facility] Influenza High Dose 2018-12-17 00:00:00 Completed [facility] Influenza High Dose 2018-12-17 00:00:00 Completed [facility] Influenza High Dose 2018-12-17 00:00:00 Completed [facility] Influenza High Dose 2018-12-17 00:00:00 Completed [facility] Influenza High Dose 2018-12-17 00:00:00 Completed [facility] Influenza High Dose 2018-12-17 00:00:00 Completed [facility] Influenza High Dose 2018-12-17 00:00:00 Completed [facility] Influenza, High-Dose, Trivalent, PF (FLUZONE) 2018-12-17 00:00:00 Completed Influenza, High-Dose, Trivalent, PF (FLUZONE) 2018-12-17 00:00:00 Completed Influenza, High-Dose, Trivalent, PF (FLUZONE) 2018-12-17 00:00:00 Completed Influenza High Dose 2018-12-17 00:00:00 Completed [facility] Influenza High Dose 2018-12-17 00:00:00 Completed [facility] Influenza High Dose 2018-12-17 00:00:00 Completed [facility] Influenza High Dose 2018-12-17 00:00:00 Completed [facility] Influenza High Dose 2018-12-17 00:00:00 Completed [facility] Influenza High Dose 2018-12-17 00:00:00 Completed [facility] Influenza High Dose 2018-12-17 00:00:00 Completed [facility] Influenza High Dose 2018-12-17 00:00:00 Completed [facility] Influenza High Dose 2018-12-17 00:00:00 Completed [facility] Influenza High Dose 2018-12-17 00:00:00 Completed [facility] Zoster Vaccine Recombinant 2018-06-19 00:00:00 Completed [facility] Zoster Vaccine Recombinant 2018-06-19 00:00:00 Completed [facility] Zoster Vaccine Recombinant 2018-06-19 00:00:00 Completed [facility] Zoster Vaccine Recombinant 2018-06-19 00:00:00 Completed [facility] Zoster Vaccine Recombinant 2018-06-19 00:00:00 Completed [facility] Zoster Vaccine Recombinant 2018-06-19 00:00:00 Completed [facility] Zoster Vaccine Recombinant 2018-06-19 00:00:00 Completed [facility] Zoster Vaccine Recombinant 2018-06-19 00:00:00 Completed [facility] Zoster Vaccine Recombinant 2018-06-19 00:00:00 Completed [facility] Zoster Vaccine Recombinant 2018-06-19 00:00:00 Completed [facility] Zoster Vaccine Recombinant 2018-06-19 00:00:00 Completed [facility] Zoster Vaccine Recombinant 2018-06-19 00:00:00 Completed [facility] Zoster Vaccine Recombinant 2018-06-19 00:00:00 Completed [facility] Zoster Vaccine Recombinant 2018-06-19 00:00:00 Completed [facility] Zoster Vaccine Recombinant 2018-06-19 00:00:00 Completed [facility] Zoster Vaccine Recombinant 2018-06-19 00:00:00 Completed [facility] Zoster Vaccine Recombinant 2018-06-19 00:00:00 Completed [facility] Zoster Vaccine Recombinant 2018-06-19 00:00:00 Completed [facility] Zoster Vaccine Recombinant 2018-06-19 00:00:00 Completed [facility] Zoster Vaccine Recombinant 2018-06-19 00:00:00 Completed [facility] Zoster Vaccine Recombinant 2018-06-19 00:00:00 Completed [facility] Zoster Vaccine Recombinant 2018-06-19 00:00:00 Completed Zoster Vaccine Recombinant 2018-06-19 00:00:00 Completed Zoster Vaccine Recombinant 2018-06-19 00:00:00 Completed Zoster Vaccine Recombinant 2018-06-19 00:00:00 Completed [facility] Zoster Vaccine Recombinant 2018-06-19 00:00:00 Completed [facility] Zoster Vaccine Recombinant 2018-06-19 00:00:00 Completed [facility] Zoster Vaccine Recombinant 2018-06-19 00:00:00 Completed [facility] Zoster Vaccine Recombinant 2018-06-19 00:00:00 Completed [facility] Zoster Vaccine Recombinant 2018-06-19 00:00:00 Completed [facility] Zoster Vaccine Recombinant 2018-06-19 00:00:00 Completed [facility] Zoster Vaccine Recombinant 2018-06-19 00:00:00 Completed [facility] Zoster Vaccine Recombinant 2018-06-19 00:00:00 Completed [facility] Zoster Vaccine Recombinant 2018-06-19 00:00:00 Completed [facility] Influenza High Dose 2018-01-14 00:00:00 Completed [facility] Influenza High Dose 2018-01-14 00:00:00 Completed [facility] Influenza High Dose 2018-01-14 00:00:00 Completed [facility] Influenza High Dose 2018-01-14 00:00:00 Completed [facility] Influenza High Dose 2018-01-14 00:00:00 Completed [facility] Influenza High Dose 2018-01-14 00:00:00 Completed [facility] Influenza High Dose 2018-01-14 00:00:00 Completed [facility] Influenza High Dose 2018-01-14 00:00:00 Completed [facility] Influenza High Dose 2018-01-14 00:00:00 Completed [facility] Influenza High Dose 2018-01-14 00:00:00 Completed [facility] Influenza High Dose 2018-01-14 00:00:00 Completed [facility] Influenza High Dose 2018-01-14 00:00:00 Completed [facility] Influenza High Dose 2018-01-14 00:00:00 Completed [facility] Influenza High Dose 2018-01-14 00:00:00 Completed [facility] Influenza High Dose 2018-01-14 00:00:00 Completed [facility] Influenza High Dose 2018-01-14 00:00:00 Completed [facility] Influenza High Dose 2018-01-14 00:00:00 Completed [facility] Influenza High Dose 2018-01-14 00:00:00 Completed [facility] Influenza High Dose 2018-01-14 00:00:00 Completed [facility] Influenza High Dose 2018-01-14 00:00:00 Completed [facility] Influenza, High-Dose, Trivalent, PF (FLUZONE) 2018-01-14 00:00:00 Completed Influenza, High-Dose, Trivalent, PF (FLUZONE) 2018-01-14 00:00:00 Completed Influenza, High-Dose, Trivalent, PF (FLUZONE) 2018-01-14 00:00:00 Completed Influenza High Dose 2018-01-14 00:00:00 Completed [facility] Influenza High Dose 2018-01-14 00:00:00 Completed [facility] Influenza High Dose 2018-01-14 00:00:00 Completed [facility] Influenza High Dose 2018-01-14 00:00:00 Completed [facility] Influenza High Dose 2018-01-14 00:00:00 Completed [facility] Influenza High Dose 2018-01-14 00:00:00 Completed [facility] Influenza High Dose 2018-01-14 00:00:00 Completed [facility] Influenza High Dose 2018-01-14 00:00:00 Completed [facility] Influenza High Dose 2018-01-14 00:00:00 Completed [facility] Influenza High Dose 2018-01-14 00:00:00 Completed [facility] Zoster Vaccine Recombinant 2017-12-29 00:00:00 Completed [facility] Zoster Vaccine Recombinant 2017-12-29 00:00:00 Completed [facility] Zoster Vaccine Recombinant 2017-12-29 00:00:00 Completed [facility] Zoster Vaccine Recombinant 2017-12-29 00:00:00 Completed [facility] Zoster Vaccine Recombinant 2017-12-29 00:00:00 Completed [facility] Zoster Vaccine Recombinant 2017-12-29 00:00:00 Completed [facility] Zoster Vaccine Recombinant 2017-12-29 00:00:00 Completed [facility] Zoster Vaccine Recombinant 2017-12-29 00:00:00 Completed [facility] Zoster Vaccine Recombinant 2017-12-29 00:00:00 Completed [facility] Zoster Vaccine Recombinant 2017-12-29 00:00:00 Completed [facility] Zoster Vaccine Recombinant 2017-12-29 00:00:00 Completed [facility] Zoster Vaccine Recombinant 2017-12-29 00:00:00 Completed [facility] Zoster Vaccine Recombinant 2017-12-29 00:00:00 Completed [facility] Zoster Vaccine Recombinant 2017-12-29 00:00:00 Completed [facility] Zoster Vaccine Recombinant 2017-12-29 00:00:00 Completed [facility] Zoster Vaccine Recombinant 2017-12-29 00:00:00 Completed [facility] Zoster Vaccine Recombinant 2017-12-29 00:00:00 Completed [facility] Zoster Vaccine Recombinant 2017-12-29 00:00:00 Completed [facility] Zoster Vaccine Recombinant 2017-12-29 00:00:00 Completed [facility] Zoster Vaccine Recombinant 2017-12-29 00:00:00 Completed [facility] Zoster Vaccine Recombinant 2017-12-29 00:00:00 Completed Zoster Vaccine Recombinant 2017-12-29 00:00:00 Completed Zoster Vaccine Recombinant 2017-12-29 00:00:00 Completed Zoster Vaccine Recombinant 2017-12-29 00:00:00 Completed [facility] Zoster Vaccine Recombinant 2017-12-29 00:00:00 Completed [facility] Zoster Vaccine Recombinant 2017-12-29 00:00:00 Completed [facility] Zoster Vaccine Recombinant 2017-12-29 00:00:00 Completed [facility] Zoster Vaccine Recombinant 2017-12-29 00:00:00 Completed [facility] Zoster Vaccine Recombinant 2017-12-29 00:00:00 Completed [facility] Zoster Vaccine Recombinant 2017-12-29 00:00:00 Completed [facility] Zoster Vaccine Recombinant 2017-12-29 00:00:00 Completed [facility] Zoster Vaccine Recombinant 2017-12-29 00:00:00 Completed [facility] Zoster Vaccine Recombinant 2017-12-29 00:00:00 Completed [facility] Influenza High Dose 2017-01-29 00:00:00 Completed [facility] Influenza High Dose 2017-01-29 00:00:00 Completed [facility] Influenza High Dose 2017-01-29 00:00:00 Completed [facility] Influenza High Dose 2017-01-29 00:00:00 Completed [facility] Influenza High Dose 2017-01-29 00:00:00 Completed [facility] Influenza High Dose 2017-01-29 00:00:00 Completed [facility] Influenza High Dose 2017-01-29 00:00:00 Completed [facility] Influenza High Dose 2017-01-29 00:00:00 Completed [facility] Influenza High Dose 2017-01-29 00:00:00 Completed [facility] Influenza High Dose 2017-01-29 00:00:00 Completed [facility] Influenza High Dose 2017-01-29 00:00:00 Completed [facility] Influenza High Dose 2017-01-29 00:00:00 Completed [facility] Influenza High Dose 2017-01-29 00:00:00 Completed [facility] Influenza High Dose 2017-01-29 00:00:00 Completed [facility] Influenza High Dose 2017-01-29 00:00:00 Completed [facility] Influenza High Dose 2017-01-29 00:00:00 Completed [facility] Influenza High Dose 2017-01-29 00:00:00 Completed [facility] Influenza High Dose 2017-01-29 00:00:00 Completed [facility] Influenza High Dose 2017-01-29 00:00:00 Completed [facility] Influenza High Dose 2017-01-29 00:00:00 Completed [facility] Influenza, High-Dose, Trivalent, PF (FLUZONE) 2017-01-29 00:00:00 Completed Influenza, High-Dose, Trivalent, PF (FLUZONE) 2017-01-29 00:00:00 Completed Influenza, High-Dose, Trivalent, PF (FLUZONE) 2017-01-29 00:00:00 Completed Influenza High Dose 2017-01-29 00:00:00 Completed [facility] Influenza High Dose 2017-01-29 00:00:00 Completed [facility] Influenza High Dose 2017-01-29 00:00:00 Completed [facility] Influenza High Dose 2017-01-29 00:00:00 Completed [facility] Influenza High Dose 2017-01-29 00:00:00 Completed [facility] Influenza High Dose 2017-01-29 00:00:00 Completed [facility] Influenza High Dose 2017-01-29 00:00:00 Completed [facility] Influenza High Dose 2017-01-29 00:00:00 Completed [facility] Influenza High Dose 2017-01-29 00:00:00 Completed [facility] Influenza High Dose 2017-01-29 00:00:00 Completed [facility] Pneumococcal 13 Conjugate, PCV13 (Prevnar 13) 2016-03-07 00:00:00 Completed [facility] Pneumococcal 13 Conjugate, PCV13 (Prevnar 13) 2016-03-07 00:00:00 Completed [facility] Pneumococcal 13 Conjugate, PCV13 (Prevnar 13) 2016-03-07 00:00:00 Completed [facility] Pneumococcal 13 Conjugate, PCV13 (Prevnar 13) 2016-03-07 00:00:00 Completed [facility] Pneumococcal 13 Conjugate, PCV13 (Prevnar 13) 2016-03-07 00:00:00 Completed [facility] Pneumococcal 13 Conjugate, PCV13 (Prevnar 13) 2016-03-07 00:00:00 Completed [facility] Pneumococcal 13 Conjugate, PCV13 (Prevnar 13) 2016-03-07 00:00:00 Completed [facility] Pneumococcal 13 Conjugate, PCV13 (Prevnar 13) 2016-03-07 00:00:00 Completed [facility] Pneumococcal 13 Conjugate, PCV13 (Prevnar 13) 2016-03-07 00:00:00 Completed [facility] Pneumococcal 13 Conjugate, PCV13 (Prevnar 13) 2016-03-07 00:00:00 Completed [facility] Pneumococcal 13 Conjugate, PCV13 (Prevnar 13) 2016-03-07 00:00:00 Completed [facility] Pneumococcal 13 Conjugate, PCV13 (Prevnar 13) 2016-03-07 00:00:00 Completed [facility] Pneumococcal 13 Conjugate, PCV13 (Prevnar 13) 2016-03-07 00:00:00 Completed [facility] Pneumococcal 13 Conjugate, PCV13 (Prevnar 13) 2016-03-07 00:00:00 Completed [facility] Pneumococcal 13 Conjugate, PCV13 (Prevnar 13) 2016-03-07 00:00:00 Completed [facility] Pneumococcal 13 Conjugate, PCV13 (Prevnar 13) 2016-03-07 00:00:00 Completed [facility] Pneumococcal 13 Conjugate, PCV13 (Prevnar 13) 2016-03-07 00:00:00 Completed [facility] Pneumococcal 13 Conjugate, PCV13 (Prevnar 13) 2016-03-07 00:00:00 Completed [facility] Pneumococcal 13 Conjugate, PCV13 (Prevnar 13) 2016-03-07 00:00:00 Completed [facility] Pneumococcal 13 Conjugate, PCV13 (Prevnar 13) 2016-03-07 00:00:00 Completed [facility] Pneumococcal 13 Conjugate, PCV13 (Prevnar 13) 2016-03-07 00:00:00 Completed [facility] Pneumococcal 13 Conjugate, PCV13 (Prevnar 13) 2016-03-07 00:00:00 Completed [facility] Pneumococcal 13 Conjugate, PCV13 (Prevnar 13) 2016-03-07 00:00:00 Completed [facility] Pneumococcal 13 Conjugate, PCV13 (Prevnar 13) 2016-03-07 00:00:00 Completed [facility] Pneumococcal 13 Conjugate, PCV13 (Prevnar 13) 2016-03-07 00:00:00 Completed [facility] Pneumococcal 13 Conjugate, PCV13 (Prevnar 13) 2016-03-07 00:00:00 Completed [facility] Pneumococcal 13 Conjugate, PCV13 (Prevnar 13) 2016-03-07 00:00:00 Completed [facility] Pneumococcal 13 Conjugate, PCV13 (Prevnar 13) 2016-03-07 00:00:00 Completed [facility] Pneumococcal 13 Conjugate, PCV13 (Prevnar 13) 2016-03-07 00:00:00 Completed [facility] Pneumococcal 13 Conjugate, PCV13 (Prevnar 13) 2016-03-07 00:00:00 Completed [facility] Pneumococcal 13 Conjugate, PCV13 (Prevnar 13) 2016-03-07 00:00:00 Completed [facility] Pneumococcal 13 Conjugate, PCV13 (Prevnar 13) 2016-03-07 00:00:00 Completed [facility] Pneumococcal 13 Conjugate, PCV13 (Prevnar 13) 2016-03-07 00:00:00 Completed [facility] Influenza Virus Vaccine 2016-02-03 00:00:00 Completed [facility] Influenza Virus Vaccine 2016-02-03 00:00:00 Completed [facility] Influenza Virus Vaccine 2016-02-03 00:00:00 Completed [facility] Influenza Virus Vaccine 2016-02-03 00:00:00 Completed [facility] Influenza Virus Vaccine 2016-02-03 00:00:00 Completed [facility] Influenza Virus Vaccine 2016-02-03 00:00:00 Completed [facility] Influenza Virus Vaccine 2016-02-03 00:00:00 Completed [facility] Influenza Virus Vaccine 2016-02-03 00:00:00 Completed [facility] Influenza Virus Vaccine 2016-02-03 00:00:00 Completed [facility] Influenza Virus Vaccine 2016-02-03 00:00:00 Completed [facility] Influenza Virus Vaccine 2016-02-03 00:00:00 Completed [facility] Influenza Virus Vaccine 2016-02-03 00:00:00 Completed [facility] Influenza Virus Vaccine 2016-02-03 00:00:00 Completed [facility] Influenza Virus Vaccine 2016-02-03 00:00:00 Completed [facility] Influenza Virus Vaccine 2016-02-03 00:00:00 Completed [facility] Influenza Virus Vaccine 2016-02-03 00:00:00 Completed [facility] Influenza Virus Vaccine 2016-02-03 00:00:00 Completed [facility] Influenza Virus Vaccine 2016-02-03 00:00:00 Completed [facility] Influenza Virus Vaccine 2016-02-03 00:00:00 Completed [facility] Influenza Virus Vaccine 2016-02-03 00:00:00 Completed [facility] Influenza Virus Vaccine 2016-02-03 00:00:00 Completed Influenza Virus Vaccine 2016-02-03 00:00:00 Completed Influenza Virus Vaccine 2016-02-03 00:00:00 Completed Influenza Virus Vaccine 2016-02-03 00:00:00 Completed [facility] Influenza Virus Vaccine 2016-02-03 00:00:00 Completed [facility] Influenza Virus Vaccine 2016-02-03 00:00:00 Completed [facility] Influenza Virus Vaccine 2016-02-03 00:00:00 Completed [facility] Influenza Virus Vaccine 2016-02-03 00:00:00 Completed [facility] Influenza Virus Vaccine 2016-02-03 00:00:00 Completed [facility] Influenza Virus Vaccine 2016-02-03 00:00:00 Completed [facility] Influenza Virus Vaccine 2016-02-03 00:00:00 Completed [facility] Influenza Virus Vaccine 2016-02-03 00:00:00 Completed [facility] Influenza Virus Vaccine 2016-02-03 00:00:00 Completed [facility] TDAP 2010-03-01 00:00:00 Completed [facility] TDAP 2010-03-01 00:00:00 Completed [facility] TDAP 2010-03-01 00:00:00 Completed [facility] TDAP 2010-03-01 00:00:00 Completed [facility] TDAP 2010-03-01 00:00:00 Completed [facility] TDAP 2010-03-01 00:00:00 Completed [facility] TDAP 2010-03-01 00:00:00 Completed [facility] TDAP 2010-03-01 00:00:00 Completed [facility] TDAP 2010-03-01 00:00:00 Completed [facility] TDAP 2010-03-01 00:00:00 Completed [facility] TDAP 2010-03-01 00:00:00 Completed [facility] TDAP 2010-03-01 00:00:00 Completed [facility] TDAP 2010-03-01 00:00:00 Completed [facility] TDAP 2010-03-01 00:00:00 Completed [facility] TDAP 2010-03-01 00:00:00 Completed [facility] TDAP 2010-03-01 00:00:00 Completed [facility] TDAP 2010-03-01 00:00:00 Completed [facility] TDAP 2010-03-01 00:00:00 Completed [facility] TDAP 2010-03-01 00:00:00 Completed [facility] TDAP 2010-03-01 00:00:00 Completed [facility] TDAP 2010-03-01 00:00:00 Completed TDAP 2010-03-01 00:00:00 Completed TDAP 2010-03-01 00:00:00 Completed TDAP 2010-03-01 00:00:00 Completed [facility] TDAP 2010-03-01 00:00:00 Completed [facility] TDAP 2010-03-01 00:00:00 Completed [facility] TDAP 2010-03-01 00:00:00 Completed [facility] TDAP 2010-03-01 00:00:00 Completed [facility] TDAP 2010-03-01 00:00:00 Completed [facility] TDAP 2010-03-01 00:00:00 Completed [facility] TDAP 2010-03-01 00:00:00 Completed [facility] TDAP 2010-03-01 00:00:00 Completed [facility] TDAP 2010-03-01 00:00:00 Completed [facility] Pneumococcal Polysaccharide, PPSV23 (PNEUMOVAX) 2006-03-08 00:00:00 Completed [facility] Pneumococcal Polysaccharide, PPSV23 (PNEUMOVAX) 2006-03-08 00:00:00 Completed [facility] Pneumococcal Polysaccharide, PPSV23 (PNEUMOVAX) 2006-03-08 00:00:00 Completed [facility] Pneumococcal Polysaccharide, PPSV23 (PNEUMOVAX) 2006-03-08 00:00:00 Completed [facility] Pneumococcal Polysaccharide, PPSV23 (PNEUMOVAX) 2006-03-08 00:00:00 Completed [facility] Pneumococcal Polysaccharide, PPSV23 (PNEUMOVAX) 2006-03-08 00:00:00 Completed [facility] Pneumococcal Polysaccharide, PPSV23 (PNEUMOVAX) 2006-03-08 00:00:00 Completed [facility] Pneumococcal Polysaccharide, PPSV23 (PNEUMOVAX) 2006-03-08 00:00:00 Completed [facility] Pneumococcal Polysaccharide, PPSV23 (PNEUMOVAX) 2006-03-08 00:00:00 Completed [facility] Pneumococcal Polysaccharide, PPSV23 (PNEUMOVAX) 2006-03-08 00:00:00 Completed [facility] Pneumococcal Polysaccharide, PPSV23 (PNEUMOVAX) 2006-03-08 00:00:00 Completed [facility] Pneumococcal Polysaccharide, PPSV23 (PNEUMOVAX) 2006-03-08 00:00:00 Completed [facility] Pneumococcal Polysaccharide, PPSV23 (PNEUMOVAX) 2006-03-08 00:00:00 Completed [facility] Pneumococcal Polysaccharide, PPSV23 (PNEUMOVAX) 2006-03-08 00:00:00 Completed [facility] Pneumococcal Polysaccharide, PPSV23 (PNEUMOVAX) 2006-03-08 00:00:00 Completed [facility] Pneumococcal Polysaccharide, PPSV23 (PNEUMOVAX) 2006-03-08 00:00:00 Completed [facility] Pneumococcal Polysaccharide, PPSV23 (PNEUMOVAX) 2006-03-08 00:00:00 Completed [facility] Pneumococcal Polysaccharide, PPSV23 (PNEUMOVAX) 2006-03-08 00:00:00 Completed [facility] Pneumococcal Polysaccharide, PPSV23 (PNEUMOVAX) 2006-03-08 00:00:00 Completed [facility] Pneumococcal Polysaccharide, PPSV23 (PNEUMOVAX) 2006-03-08 00:00:00 Completed [facility] Pneumococcal Polysaccharide, PPSV23 (PNEUMOVAX) 2006-03-08 00:00:00 Completed Pneumococcal Polysaccharide, PPSV23 (PNEUMOVAX) 2006-03-08 00:00:00 Completed Pneumococcal Polysaccharide, PPSV23 (PNEUMOVAX) 2006-03-08 00:00:00 Completed Pneumococcal Polysaccharide, PPSV23 (PNEUMOVAX) 2006-03-08 00:00:00 Completed [facility] Pneumococcal Polysaccharide, PPSV23 (PNEUMOVAX) 2006-03-08 00:00:00 Completed [facility] Pneumococcal Polysaccharide, PPSV23 (PNEUMOVAX) 2006-03-08 00:00:00 Completed [facility] Pneumococcal Polysaccharide, PPSV23 (PNEUMOVAX) 2006-03-08 00:00:00 Completed [facility] Pneumococcal Polysaccharide, PPSV23 (PNEUMOVAX) 2006-03-08 00:00:00 Completed [facility] Pneumococcal Polysaccharide, PPSV23 (PNEUMOVAX) 2006-03-08 00:00:00 Completed [facility] Pneumococcal Polysaccharide, PPSV23 (PNEUMOVAX) 2006-03-08 00:00:00 Completed [facility] Pneumococcal Polysaccharide, PPSV23 (PNEUMOVAX) 2006-03-08 00:00:00 Completed [facility] Pneumococcal Polysaccharide, PPSV23 (PNEUMOVAX) 2006-03-08 00:00:00 Completed [facility] Pneumococcal Polysaccharide, PPSV23 (PNEUMOVAX) 2006-03-08 00:00:00 Completed [facility]:00:00 Completed [facility]oster[facility] 2002-03-01 00:00:00 Completed [facility] Zoster(Zostavax)([facility]) 2002-03-01 00:00:00 Completed [facility] Zoster(Zostavax)( [facility]) 2002-03-01 00:00:00 Completed [facility]oster[facility] 2002-03-01 00:00:00 Completed [facility] Zoster[facility]ost[facility]ax[facility] 2002-03-01 00:00:00 Completed [facility] Zoster(Zostavax)([facility]) 2002-03-01 00:00:00 Completed [facility] Zoster(Zostavax)([facility]) 2002-03-01 00:00:00 Completed [facility] Zoster(Zostavax)([facility]) 2002-03-01 00:00:00 Completed [facility] Zoster(Zostavax)([facility]) 2002-03-01 00:00:00 Completed [facility] Zoster(Zostavax)([facility]) 2002-03-01 00:00:00 Completed [facility] Zoster(Zostavax)([facility]) 2002-03-01 00:00:00 Completed [facility] Zoster(Zostavax)([facility]) 2002-03-01 00:00:00 Completed [facility] Zoster(Zostavax)([facility]) 2002-03-01 00:00:00 Completed [facility] Zoster(Zostavax)([facility]) 2002-03-01 00:00:00 Completed [facility] Zoster(Zostavax)([facility]) 2002-03-01 00:00:00 Completed [facility] Zoster(Zostavax)([facility]) 2002-03-01 00:00:00 Completed [facility] Zoster(Zostavax)([facility]) 2002-03-01 00:00:00 Completed [facility] Zoster(Zostavax)([facility]) 2002-03-01 00:00:00 Completed [facility] Zoster(Zostavax)([facility]) 2002-03-01 00:00:00 Completed [facility] Zoster(Zostavax)([facility]) 2002-03-01 00:00:00 Completed Zoster(Zostavax)([facility]) 2002-03-01 00:00:00 Completed Zoster(Zostavax)([facility]) 2002-03-01 00:00:00 Completed Zoster(Zostavax)([facility]) 2002-03-01 00:00:00 Completed [facility] Zoster(Zostavax)([facility]) 2002-03-01 00:00:00 Completed [facility] Zoster(Zostavax)([facility]) 2002-03-01 00:00:00 Completed [facility] Zoster(Zostavax)([facility]) 2002-03-01 00:00:00 Completed [facility] Zoster(Zostavax)([facility]) 2002-03-01 00:00:00 Completed [facility] Zoster(Zostavax)([facility]) 2002-03-01 00:00:00 Completed [facility] Zoster(Zostavax)([facility]) 2002-03-01 00:00:00 Completed [facility] Zoster(Zostavax)([facility]) 2002-03-01 00:00:00 Completed [facility] Zoster(Zostavax)([facility]) 2002-03-01 00:00:00 Completed [facility] Zoster(Zostavax)([facility]) 2002-03-01 00:00:00 Completed [facility] Influenza Virus Vaccine Unknown Completed [facility] Pneumococcal Polysaccharide, PPSV23 (PNEUMOVAX) Unknown Completed [facility] Pneumococcal 13 Conjugate, PCV13 (Prevnar 13) Unknown Completed [facility] Influenza High Dose Unknown Completed [facility] Zoster(Zostavax)([facility]) Unknown Completed [facility] TDAP Unknown Completed [facility] Zoster Vaccine Recombinant Unknown Completed [facility] Influenza High Dose Quad Unknown Completed [facility] SARS-COV-2 COVID-19 MODERNA 12+ YRS VACCINE Unknown Completed [facility] SARS-COV-2 COVID-19 MODERNA 0.25ML BOOSTER VACCINE Unknown Completed [facility] Remdesivir Unknown Completed [facility] Remdesivir Unknown Completed [facility] Influenza Virus Vaccine Unknown Completed [facility] Pneumococcal Polysaccharide, PPSV23 (PNEUMOVAX) Unknown Completed [facility] Pneumococcal 13 Conjugate, PCV13 (Prevnar 13) Unknown Completed [facility] Influenza High Dose Unknown Completed [facility] Zoster(Zostavax)([facility]) Unknown Completed [facility] TDAP Unknown Completed [facility] Zoster Vaccine Recombinant Unknown Completed [facility] Influenza High Dose Quad Unknown Completed [facility] SARS-COV-2 COVID-19 MODERNA 12+ YRS VACCINE Unknown Completed [facility] SARS-COV-2 COVID-19 MODERNA 0.25ML BOOSTER VACCINE Unknown Completed [facility] Remdesivir Unknown Completed [facility] Remdesivir Unknown Completed [facility] Influenza High Dose Unknown Completed [facility] Zoster(Zostavax)( ingles) Unknown Completed [facility] TDAP Unknown Completed [facility] Zoster Vaccine Recombinant Unknown Completed [facility] Influenza High Dose Quad Unknown Completed [facility] SARS-COV-2 COVID-19 MODERNA 12+ YRS VACCINE Unknown Completed [facility] SARS-COV-2 COVID-19 MODERNA 0.25ML BOOSTER VACCINE Unknown Completed [facility] Remdesivir Unknown Completed [facility] Remdesivir Unknown Completed [facility] Influenza Virus Vaccine Unknown Completed [facility] Pneumococcal Polysaccharide, PPSV23 (PNEUMOVAX) Unknown Completed [facility] Pneumococcal 13 Conjugate, PCV13 (Prevnar 13) Unknown Completed [facility] Influenza High Dose Unknown Completed [facility] Zoster(Zostavax)( ingles) Unknown Completed [facility] TDAP Unknown Completed [facility] Zoster Vaccine Recombinant Unknown Completed [facility] Influenza High Dose Quad Unknown Completed [facility] SARS-COV-2 COVID-19 MODERNA 12+ YRS VACCINE Unknown Completed [facility] SARS-COV-2 COVID-19 MODERNA 0.25ML BOOSTER VACCINE Unknown Completed [facility] Remdesivir Unknown Completed [facility] Remdesivir Unknown Completed [facility] Influenza Virus Vaccine,quad Im,preserve Free 65+ (FLUAD) Unknown Completed [facility] Influenza Virus Vaccine,quad Im,preserve Free 65+ (FLUAD) Unknown Completed [facility] Influenza Virus Vaccine Unknown Completed [facility] Pneumococcal Polysaccharide, PPSV23 (PNEUMOVAX) Unknown Completed [facility] Pneumococcal 13 Conjugate, PCV13 (Prevnar 13) Unknown Completed [facility] Influenza High Dose Unknown Completed [facility] Zoster(Zostavax)( ingles) Unknown Completed [facility] TDAP Unknown Completed [facility] Zoster Vaccine Recombinant Unknown Completed [facility] Influenza High Dose Quad Unknown Completed [facility] SARS-COV-2 COVID-19 MODERNA 12+ YRS VACCINE Unknown Completed [facility] SARS-COV-2 COVID-19 MODERNA 0.25ML BOOSTER VACCINE Unknown Completed [facility] Remdesivir Unknown Completed [facility] Remdesivir Unknown Completed [facility] Influenza Virus Vaccine Unknown Completed [facility] Pneumococcal Polysaccharide, PPSV23 (PNEUMOVAX) Unknown Completed [facility] Pneumococcal 13 Conjugate, PCV13 (Prevnar 13) Unknown Completed [facility] Zoster(Zostavax)( waldo) Unknown Completed [facility] SARS-COV-2 COVID-19 MODERNA 0.25ML BOOSTER VACCINE Unknown Completed [facility] Remdesivir Unknown Completed [facility] Influenza Virus Vaccine,quad Im,preserve Free 65+ (FLUAD) Unknown Completed [facility] Influenza Virus Vaccine Unknown Completed [facility] Pneumococcal Polysaccharide, PPSV23 (PNEUMOVAX) Unknown Completed [facility] Pneumococcal 13 Conjugate, PCV13 (Prevnar 13) Unknown Completed [facility] Influenza High Dose Unknown Completed [facility] Zoster(Zostavax)( gingerles) Unknown Completed [facility] TDAP Unknown Completed [facility] Zoster Vaccine Recombinant Unknown Completed [facility] Influenza High Dose Quad Unknown Completed [facility] SARS-COV-2 COVID-19 MODERNA 12+ YRS VACCINE Unknown Completed [facility] SARS-COV-2 COVID-19 MODERNA 0.25ML BOOSTER VACCINE Unknown Completed [facility] Remdesivir Unknown Completed [facility] Remdesivir Unknown Completed [facility] Influenza Virus Vaccine,quad Im,preserve Free 65+ (FLUAD) Unknown Completed [facility] Influenza Virus Vaccine Unknown Completed [facility] Pneumococcal Polysaccharide, PPSV23 (PNEUMOVAX) Unknown Completed [facility] Pneumococcal 13 Conjugate, PCV13 (Prevnar 13) Unknown Completed [facility] Influenza Virus Vaccine Unknown Completed [facility] Pneumococcal Polysaccharide, PPSV23 (PNEUMOVAX) Unknown Completed [facility] Pneumococcal 13 Conjugate, PCV13 (Prevnar 13) Unknown Completed [facility] Influenza High Dose Unknown Completed [facility] Zoster(Zostavax)( ingles) Unknown Completed [facility] TDAP Unknown Completed [facility] Zoster Vaccine Recombinant Unknown Completed [facility] Influenza High Dose Quad Unknown Completed [facility] SARS-COV-2 COVID-19 MODERNA 12+ YRS VACCINE Unknown Completed [facility] SARS-COV-2 COVID-19 MODERNA 0.25ML BOOSTER VACCINE Unknown Completed [facility] Remdesivir Unknown Completed [facility] Remdesivir Unknown Completed [facility] Influenza Virus Vaccine,quad Im,preserve Free 65+ (FLUAD) Unknown Completed [facility] Influenza High Dose Unknown Completed [facility] Zoster(Zostavax)( inghector) Unknown Completed [facility] TDAP Unknown Completed [facility] Zoster Vaccine Recombinant Unknown Completed [facility] Influenza High Dose Quad Unknown Completed [facility] SARS-COV-2 COVID-19 MODERNA 12+ YRS VACCINE Unknown Completed [facility] SARS-COV-2 COVID-19 MODERNA 0.25ML BOOSTER VACCINE Unknown Completed [facility] Remdesivir Unknown Completed [facility] Remdesivir Unknown Completed [facility] Influenza Virus Vaccine,quad Im,preserve Free 65+ (FLUAD) Unknown Completed [facility] Influenza Virus Vaccine Unknown Completed [facility] Pneumococcal Polysaccharide, PPSV23 (PNEUMOVAX) Unknown Completed [facility] Pneumococcal 13 Conjugate, PCV13 (Prevnar 13) Unknown Completed [facility] Influenza Virus Vaccine Unknown Completed [facility] Pneumococcal Polysaccharide, PPSV23 (PNEUMOVAX) Unknown Completed [facility] Pneumococcal 13 Conjugate, PCV13 (Prevnar 13) Unknown Completed [facility] Influenza High Dose Unknown Completed [facility] Zoster(Zostavax)( ingles) Unknown Completed [facility] TDAP Unknown Completed [facility] Zoster Vaccine Recombinant Unknown Completed [facility] Influenza High Dose Quad Unknown Completed [facility] SARS-COV-2 COVID-19 MODERNA 12+ YRS VACCINE Unknown Completed [facility] SARS-COV-2 COVID-19 MODERNA 0.25ML BOOSTER VACCINE Unknown Completed [facility] Remdesivir Unknown Completed [facility] Remdesivir Unknown Completed [facility] Influenza Virus Vaccine,quad Im,preserve Free 65+ (FLUAD) Unknown Completed [facility] Influenza Virus Vaccine Unknown Completed [facility] Pneumococcal Polysaccharide, PPSV23 (PNEUMOVAX) Unknown Completed [facility] Pneumococcal 13 Conjugate, PCV13 (Prevnar 13) Unknown Completed [facility] Influenza High Dose Unknown Completed [facility] Zoster(Zostavax)(Sh ingles) Unknown Completed [facility] TDAP Unknown Completed [facility] Zoster Vaccine Recombinant Unknown Completed [facility] Influenza High Dose Quad Unknown Completed [facility] SARS-COV-2 COVID-19 MODERNA 12+ YRS VACCINE Unknown Completed [facility] SARS-COV-2 COVID-19 MODERNA 0.25ML BOOSTER VACCINE Unknown Completed [facility] Remdesivir Unknown Completed [facility] Remdesivir Unknown Completed [facility] Influenza Virus Vaccine,quad Im,preserve Free 65+ (FLUAD) Unknown Completed [facility] Influenza Virus Vaccine Unknown Completed [facility] Pneumococcal Polysaccharide, PPSV23 (PNEUMOVAX) Unknown Completed [facility] Pneumococcal 13 Conjugate, PCV13 (Prevnar 13) Unknown Completed [facility] Influenza High Dose Unknown Completed [facility] Zoster(Zostavax)(Sh ingles) Unknown Completed [facility] TDAP Unknown Completed [facility] Zoster Vaccine Recombinant Unknown Completed [facility] Influenza High Dose Quad Unknown Completed [facility] SARS-COV-2 COVID-19 MODERNA 12+ YRS VACCINE Unknown Completed [facility] SARS-COV-2 COVID-19 MODERNA 0.25ML BOOSTER VACCINE Unknown Completed [facility] Remdesivir Unknown Completed [facility] Remdesivir Unknown Completed [facility] Influenza Virus Vaccine,quad Im,preserve Free 65+ (FLUAD) Unknown Completed [facility] Influenza Virus Vaccine Unknown Completed [facility] Pneumococcal Polysaccharide, PPSV23 (PNEUMOVAX) Unknown Completed [facility] Pneumococcal 13 Conjugate, PCV13 (Prevnar 13) Unknown Completed [facility] Influenza High Dose Unknown Completed [facility] Zoster(Zostavax)(Sh ingles) Unknown Completed [facility] TDAP Unknown Completed [facility] Zoster Vaccine Recombinant Unknown Completed [facility] Influenza High Dose Quad Unknown Completed [facility] SARS-COV-2 COVID-19 MODERNA 12+ YRS VACCINE Unknown Completed [facility] SARS-COV-2 COVID-19 MODERNA 0.25ML BOOSTER VACCINE Unknown Completed [facility] Remdesivir Unknown Completed [facility] Remdesivir Unknown Completed [facility] Influenza Virus Vaccine,quad Im,preserve Free 65+ (FLUAD) Unknown Completed [facility] Influenza Virus Vaccine Unknown Completed [facility] Pneumococcal Polysaccharide, PPSV23 (PNEUMOVAX) Unknown Completed [facility] Pneumococcal 13 Conjugate, PCV13 (Prevnar 13) Unknown Completed [facility] Influenza High Dose Unknown Completed [facility] Zoster(Zostavax)( ingles) Unknown Completed [facility] TDAP Unknown Completed [facility] Zoster Vaccine Recombinant Unknown Completed [facility] Influenza High Dose Quad Unknown Completed [facility] SARS-COV-2 COVID-19 MODERNA 12+ YRS VACCINE Unknown Completed [facility] SARS-COV-2 COVID-19 MODERNA 0.25ML BOOSTER VACCINE Unknown Completed [facility] Remdesivir Unknown Completed [facility] Remdesivir Unknown Completed [facility] Influenza Virus Vaccine,quad Im,preserve Free 65+ (FLUAD) Unknown Completed [facility] Influenza Virus Vaccine Unknown Completed [facility] Pneumococcal Polysaccharide, PPSV23 (PNEUMOVAX) Unknown Completed [facility] Pneumococcal 13 Conjugate, PCV13 (Prevnar 13) Unknown Completed [facility] Influenza High Dose Unknown Completed [facility] Zoster(Zostavax)(Sh ingles) Unknown Completed [facility] TDAP Unknown Completed [facility] Zoster Vaccine Recombinant Unknown Completed [facility] Influenza High Dose Quad Unknown Completed [facility] SARS-COV-2 COVID-19 MODERNA 12+ YRS VACCINE Unknown Completed [facility] SARS-COV-2 COVID-19 MODERNA 0.25ML BOOSTER VACCINE Unknown Completed [facility] Remdesivir Unknown Completed [facility] Remdesivir Unknown Completed [facility] Influenza Virus Vaccine,quad Im,preserve Free 65+ (FLUAD) Unknown Completed [facility] Influenza Virus Vaccine Unknown Completed [facility] Pneumococcal Polysaccharide, PPSV23 (PNEUMOVAX) Unknown Completed [facility] Pneumococcal 13 Conjugate, PCV13 (Prevnar 13) Unknown Completed [facility] Zoster(Zostavax)(Sh ingles) Unknown Completed [facility] SARS-COV-2 COVID-19 MODERNA 0.25ML BOOSTER VACCINE Unknown Completed [facility] Remdesivir Unknown Completed [facility] Influenza Virus Vaccine,quad Im,preserve Free 65+ (FLUAD) Unknown Completed [facility] Influenza Virus Vaccine Unknown Completed [facility] Pneumococcal Polysaccharide, PPSV23 (PNEUMOVAX) Unknown Completed [facility] Pneumococcal 13 Conjugate, PCV13 (Prevnar 13) Unknown Completed [facility] Zoster(Zostavax)(Sh ingles) Unknown Completed [facility] SARS-COV-2 COVID-19 MODERNA 0.25ML BOOSTER VACCINE Unknown Completed [facility] Remdesivir Unknown Completed [facility] Influenza Virus Vaccine,quad Im,preserve Free 65+ (FLUAD) Unknown Completed [facility] Influenza High Dose Unknown Completed [facility] TDAP Unknown Completed [facility] Zoster Vaccine Recombinant Unknown Completed [facility] Influenza High Dose Quad Unknown Completed [facility] SARS-COV-2 COVID-19 MODERNA 12+ YRS VACCINE Unknown Completed [facility] Remdesivir Unknown Completed [facility] Influenza Virus Vaccine Unknown Completed [facility] Pneumococcal Polysaccharide, PPSV23 (PNEUMOVAX) Unknown Completed [facility] Pneumococcal 13 Conjugate, PCV13 (Prevnar 13) Unknown Completed [facility] Influenza High Dose Unknown Completed [facility] Zoster(Zostavax)(Sh ingles) Unknown Completed [facility] TDAP Unknown Completed [facility] Zoster Vaccine Recombinant Unknown Completed [facility] Influenza High Dose Quad Unknown Completed [facility] SARS-COV-2 COVID-19 MODERNA 12+ YRS VACCINE Unknown Completed [facility] SARS-COV-2 COVID-19 MODERNA 0.25ML BOOSTER VACCINE Unknown Completed [facility] Remdesivir Unknown Completed [facility] Remdesivir Unknown Completed [facility] Influenza Virus Vaccine,quad Im,preserve Free 65+ (FLUAD) Unknown Completed [facility] Influenza High Dose Unknown Completed [facility] TDAP Unknown Completed [facility] Zoster Vaccine Recombinant Unknown Completed [facility] Influenza High Dose Quad Unknown Completed [facility] SARS-COV-2 COVID-19 MODERNA 12+ YRS VACCINE Unknown Completed [facility] Remdesivir Unknown Completed [facility] Influenza Virus Vaccine Unknown Completed [facility] Pneumococcal Polysaccharide, PPSV23 (PNEUMOVAX) Unknown Completed [facility] Pneumococcal 13 Conjugate, PCV13 (Prevnar 13) Unknown Completed [facility] Influenza High Dose Unknown Completed [facility] Zoster(Zostavax)(Sh ingles) Unknown Completed [facility] TDAP Unknown Completed [facility] Zoster Vaccine Recombinant Unknown Completed [facility] Influenza High Dose Quad Unknown Completed [facility] SARS-COV-2 COVID-19 MODERNA 12+ YRS VACCINE Unknown Completed [facility] SARS-COV-2 COVID-19 MODERNA 0.25ML BOOSTER VACCINE Unknown Completed [facility] Remdesivir Unknown Completed [facility] Remdesivir Unknown Completed [facility] Influenza Virus Vaccine,quad Im,preserve Free 65+ (FLUAD) Unknown Completed [facility] Influenza Virus Vaccine Unknown Completed [facility] Pneumococcal Polysaccharide, PPSV23 (PNEUMOVAX) Unknown Completed [facility] Pneumococcal 13 Conjugate, PCV13 (Prevnar 13) Unknown Completed [facility] Influenza High Dose Unknown Completed [facility] Zoster(Zostavax)(Sh ingles) Unknown Completed [facility] TDAP Unknown Completed [facility] Zoster Vaccine Recombinant Unknown Completed [facility] Influenza High Dose Quad Unknown Completed [facility] SARS-COV-2 COVID-19 MODERNA 12+ YRS VACCINE Unknown Completed [facility] SARS-COV-2 COVID-19 MODERNA 0.25ML BOOSTER VACCINE Unknown Completed [facility] Remdesivir Unknown Completed [facility] Remdesivir Unknown Completed [facility] Influenza Virus Vaccine,quad Im,preserve Free 65+ (FLUAD) Unknown Completed [facility] Influenza Virus Vaccine Unknown Completed [facility] Pneumococcal Polysaccharide, PPSV23 (PNEUMOVAX) Unknown Completed [facility] Pneumococcal 13 Conjugate, PCV13 (Prevnar 13) Unknown Completed [facility] Influenza High Dose Unknown Completed [facility] Zoster(Zostavax)(Sh ingles) Unknown Completed [facility] TDAP Unknown Completed [facility] Zoster Vaccine Recombinant Unknown Completed [facility] Influenza High Dose Quad Unknown Completed [facility] SARS-COV-2 COVID-19 MODERNA 12+ YRS VACCINE Unknown Completed [facility] SARS-COV-2 COVID-19 MODERNA 0.25ML BOOSTER VACCINE Unknown Completed [facility] Remdesivir Unknown Completed [facility] Remdesivir Unknown Completed [facility] Influenza Virus Vaccine,quad Im,preserve Free 65+ (FLUAD) Unknown Completed [facility] Influenza Virus Vaccine Unknown Completed [facility] Pneumococcal Polysaccharide, PPSV23 (PNEUMOVAX) Unknown Completed [facility] Pneumococcal 13 Conjugate, PCV13 (Prevnar 13) Unknown Completed [facility] Zoster(Zostavax)(Sh ingles) Unknown Completed [facility] SARS-COV-2 COVID-19 MODERNA 0.25ML BOOSTER VACCINE Unknown Completed [facility] Remdesivir Unknown Completed [facility] Influenza Virus Vaccine,quad Im,preserve Free 65+ (FLUAD) Unknown Completed [facility] Influenza High Dose Unknown Completed [facility] TDAP Unknown Completed [facility] Zoster Vaccine Recombinant Unknown Completed [facility] Influenza High Dose Quad Unknown Completed [facility] SARS-COV-2 COVID-19 MODERNA 12+ YRS VACCINE Unknown Completed [facility] Remdesivir Unknown Completed [facility] Influenza Virus Vaccine Unknown Completed [facility] Pneumococcal Polysaccharide, PPSV23 (PNEUMOVAX) Unknown Completed [facility] Pneumococcal 13 Conjugate, PCV13 (Prevnar 13) Unknown Completed [facility] Influenza High Dose Unknown Completed [facility] Zoster(Zostavax)(Sh ingles) Unknown Completed [facility] TDAP Unknown Completed [facility] Zoster Vaccine Recombinant Unknown Completed [facility] Influenza High Dose Quad Unknown Completed [facility] SARS-COV-2 COVID-19 MODERNA 12+ YRS VACCINE Unknown Completed [facility] SARS-COV-2 COVID-19 MODERNA 0.25ML BOOSTER VACCINE Unknown Completed [facility] Remdesivir Unknown Completed [facility] Remdesivir Unknown Completed [facility] Influenza Virus Vaccine,quad Im,preserve Free 65+ (FLUAD) Unknown Completed [facility] Influenza Virus Vaccine Unknown Completed [facility] Pneumococcal Polysaccharide, PPSV23 (PNEUMOVAX) Unknown Completed [facility] Pneumococcal 13 Conjugate, PCV13 (Prevnar 13) Unknown Completed [facility] Influenza High Dose Unknown Completed [facility] Zoster(Zostavax)( ingles) Unknown Completed [facility] TDAP Unknown Completed [facility] Zoster Vaccine Recombinant Unknown Completed [facility] Influenza High Dose Quad Unknown Completed [facility] SARS-COV-2 COVID-19 MODERNA 12+ YRS VACCINE Unknown Completed [facility] SARS-COV-2 COVID-19 MODERNA 0.25ML BOOSTER VACCINE Unknown Completed [facility] Remdesivir Unknown Completed [facility] Remdesivir Unknown Completed [facility] Influenza Virus Vaccine,quad Im,preserve Free 65+ (FLUAD) Unknown Completed [facility] Influenza Virus Vaccine Unknown Completed [facility] Pneumococcal Polysaccharide, PPSV23 (PNEUMOVAX) Unknown Completed [facility] Pneumococcal 13 Conjugate, PCV13 (Prevnar 13) Unknown Completed [facility] Influenza High Dose Unknown Completed [facility] Zoster(Zostavax)(Sh ingles) Unknown Completed [facility] TDAP Unknown Completed [facility] Zoster Vaccine Recombinant Unknown Completed [facility] Influenza High Dose Quad Unknown Completed [facility] SARS-COV-2 COVID-19 MODERNA 12+ YRS VACCINE Unknown Completed [facility] SARS-COV-2 COVID-19 MODERNA 0.25ML BOOSTER VACCINE Unknown Completed [facility] Remdesivir Unknown Completed [facility] Remdesivir Unknown Completed [facility] Influenza Virus Vaccine,quad Im,preserve Free 65+ (FLUAD) Unknown Completed [facility] Influenza Virus Vaccine Unknown Completed [facility] Pneumococcal Polysaccharide, PPSV23 (PNEUMOVAX) Unknown Completed [facility] Pneumococcal 13 Conjugate, PCV13 (Prevnar 13) Unknown Completed [facility] Influenza High Dose Unknown Completed [facility] Zoster(Zostavax)(Sh ingles) Unknown Completed [facility] TDAP Unknown Completed [facility] Zoster Vaccine Recombinant Unknown Completed [facility] Influenza High Dose Quad Unknown Completed [facility] SARS-COV-2 COVID-19 MODERNA 12+ YRS VACCINE Unknown Completed [facility] SARS-COV-2 COVID-19 MODERNA 0.25ML BOOSTER VACCINE Unknown Completed [facility] Remdesivir Unknown Completed [facility] Remdesivir Unknown Completed [facility] Influenza Virus Vaccine,quad Im,preserve Free 65+ (FLUAD) Unknown Completed [facility] Influenza Virus Vaccine Unknown Completed [facility] Pneumococcal Polysaccharide, PPSV23 (PNEUMOVAX) Unknown Completed [facility] Pneumococcal 13 Conjugate, PCV13 (Prevnar 13) Unknown Completed [facility] Zoster(Zostavax)(Sh ingles) Unknown Completed [facility] SARS-COV-2 COVID-19 MODERNA 0.25ML BOOSTER VACCINE Unknown Completed [facility] Remdesivir Unknown Completed [facility] Influenza Virus Vaccine,quad Im,preserve Free 65+ (FLUAD) Unknown Completed [facility] Influenza High Dose Unknown Completed [facility] TDAP Unknown Completed [facility] Zoster Vaccine Recombinant Unknown Completed [facility] Influenza High Dose Quad Unknown Completed [facility] SARS-COV-2 COVID-19 MODERNA 12+ YRS VACCINE Unknown Completed [facility] Remdesivir Unknown Completed [facility] Influenza Virus Vaccine Unknown Completed [facility] Pneumococcal Polysaccharide, PPSV23 (PNEUMOVAX) Unknown Completed [facility] Pneumococcal 13 Conjugate, PCV13 (Prevnar 13) Unknown Completed [facility] Influenza High Dose Unknown Completed [facility] Zoster(Zostavax)( ingles) Unknown Completed [facility] TDAP Unknown Completed [facility] Zoster Vaccine Recombinant Unknown Completed [facility] Influenza High Dose Quad Unknown Completed [facility] SARS-COV-2 COVID-19 MODERNA 12+ YRS VACCINE Unknown Completed [facility] SARS-COV-2 COVID-19 MODERNA 0.25ML BOOSTER VACCINE Unknown Completed [facility] Remdesivir Unknown Completed [facility] Remdesivir Unknown Completed [facility] Influenza Virus Vaccine,quad Im,preserve Free 65+ (FLUAD) Unknown Completed [facility] Influenza Virus Vaccine Unknown Completed [facility] Pneumococcal Polysaccharide, PPSV23 (PNEUMOVAX) Unknown Completed [facility] Pneumococcal 13 Conjugate, PCV13 (Prevnar 13) Unknown Completed [facility] Zoster(Zostavax)( ingles) Unknown Completed [facility] SARS-COV-2 COVID-19 MODERNA 0.25ML BOOSTER VACCINE Unknown Completed [facility] Remdesivir Unknown Completed [facility] Influenza Virus Vaccine,quad Im,preserve Free 65+ (FLUAD) Unknown Completed [facility] Influenza High Dose Unknown Completed [facility] TDAP Unknown Completed [facility] Zoster Vaccine Recombinant Unknown Completed [facility] Influenza High Dose Quad Unknown Completed [facility] SARS-COV-2 COVID-19 MODERNA 12+ YRS VACCINE Unknown Completed [facility] Remdesivir Unknown Completed [facility] Influenza Virus Vaccine Unknown Completed [facility] Pneumococcal Polysaccharide, PPSV23 (PNEUMOVAX) Unknown Completed [facility] Pneumococcal 13 Conjugate, PCV13 (Prevnar 13) Unknown Completed [facility] Zoster(Zostavax)( ingles) Unknown Completed [facility] SARS-COV-2 COVID-19 MODERNA 0.25ML BOOSTER VACCINE Unknown Completed [facility] Remdesivir Unknown Completed [facility] Influenza Virus Vaccine,quad Im,preserve Free 65+ (FLUAD) Unknown Completed [facility] Influenza High Dose Unknown Completed [facility] TDAP Unknown Completed [facility] Zoster Vaccine Recombinant Unknown Completed [facility] Influenza High Dose Quad Unknown Completed [facility] SARS-COV-2 COVID-19 MODERNA 12+ YRS VACCINE Unknown Completed [facility] Remdesivir Unknown Completed [facility] Influenza Virus Vaccine Unknown Completed [facility] Pneumococcal Polysaccharide, PPSV23 (PNEUMOVAX) Unknown Completed [facility] Pneumococcal 13 Conjugate, PCV13 (Prevnar 13) Unknown Completed [facility] Zoster(Zostavax)(Sh ingles) Unknown Completed [facility] SARS-COV-2 COVID-19 MODERNA 0.25ML BOOSTER VACCINE Unknown Completed [facility] Remdesivir Unknown Completed [facility] Influenza Virus Vaccine,quad Im,preserve Free 65+ (FLUAD) Unknown Completed [facility] Influenza High Dose Unknown Completed [facility] TDAP Unknown Completed [facility] Zoster Vaccine Recombinant Unknown Completed [facility] Influenza High Dose Quad Unknown Completed [facility] SARS-COV-2 COVID-19 MODERNA 12+ YRS VACCINE Unknown Completed [facility] Remdesivir Unknown Completed [facility] Influenza Virus Vaccine Unknown Completed [facility] Pneumococcal Polysaccharide, PPSV23 (PNEUMOVAX) Unknown Completed [facility] Pneumococcal 13 Conjugate, PCV13 (Prevnar 13) Unknown Completed [facility] Influenza High Dose Unknown Completed [facility] Zoster(Zostavax)(Sh ingles) Unknown Completed [facility] TDAP Unknown Completed [facility] Zoster Vaccine Recombinant Unknown Completed [facility] Influenza High Dose Quad Unknown Completed [facility] SARS-COV-2 COVID-19 MODERNA 12+ YRS VACCINE Unknown Completed [facility] SARS-COV-2 COVID-19 MODERNA 0.25ML BOOSTER VACCINE Unknown Completed [facility] Remdesivir Unknown Completed [facility] Remdesivir Unknown Completed [facility] Influenza Virus Vaccine,quad Im,preserve Free 65+ (FLUAD) Unknown Completed [facility] Influenza Virus Vaccine Unknown Completed [facility] Pneumococcal Polysaccharide, PPSV23 (PNEUMOVAX) Unknown Completed [facility] Pneumococcal 13 Conjugate, PCV13 (Prevnar 13) Unknown Completed [facility] Influenza High Dose Unknown Completed [facility] Zoster(Zostavax)(Sh ingles) Unknown Completed [facility] TDAP Unknown Completed [facility] Zoster Vaccine Recombinant Unknown Completed [facility] Influenza High Dose Quad Unknown Completed [facility] SARS-COV-2 COVID-19 MODERNA 12+ YRS VACCINE Unknown Completed [facility] SARS-COV-2 COVID-19 MODERNA 0.25ML BOOSTER VACCINE Unknown Completed [facility] Remdesivir Unknown Completed [facility] Remdesivir Unknown Completed [facility] Influenza Virus Vaccine,quad Im,preserve Free 65+ (FLUAD) Unknown Completed [facility] Influenza Virus Vaccine Unknown Completed [facility] Pneumococcal Polysaccharide, PPSV23 (PNEUMOVAX) Unknown Completed [facility] Pneumococcal 13 Conjugate, PCV13 (Prevnar 13) Unknown Completed [facility] Influenza High Dose Unknown Completed [facility] Zoster(Zostavax)( ingles) Unknown Completed [facility] TDAP Unknown Completed [facility] Zoster Vaccine Recombinant Unknown Completed [facility] Influenza High Dose Quad Unknown Completed [facility] SARS-COV-2 COVID-19 MODERNA 12+ YRS VACCINE Unknown Completed [facility] SARS-COV-2 COVID-19 MODERNA 0.25ML BOOSTER VACCINE Unknown Completed [facility] Remdesivir Unknown Completed [facility] Remdesivir Unknown Completed [facility] Influenza Virus Vaccine,quad Im,preserve Free 65+ (FLUAD) Unknown Completed [facility] Influenza Virus Vaccine Unknown Completed [facility] Pneumococcal Polysaccharide, PPSV23 (PNEUMOVAX) Unknown Completed [facility] Pneumococcal 13 Conjugate, PCV13 (Prevnar 13) Unknown Completed [facility] Influenza High Dose Unknown Completed [facility] Zoster(Zostavax)(Sh ingles) Unknown Completed [facility] TDAP Unknown Completed [facility] Zoster Vaccine Recombinant Unknown Completed [facility] Influenza High Dose Quad Unknown Completed [facility] SARS-COV-2 COVID-19 MODERNA 12+ YRS VACCINE Unknown Completed [facility] SARS-COV-2 COVID-19 MODERNA 0.25ML BOOSTER VACCINE Unknown Completed [facility] Remdesivir Unknown Completed [facility] Remdesivir Unknown Completed [facility] Influenza Virus Vaccine,quad Im,preserve Free 65+ (FLUAD) Unknown Completed [facility] Influenza Virus Vaccine Unknown Completed [facility] Pneumococcal Polysaccharide, PPSV23 (PNEUMOVAX) Unknown Completed [facility] Pneumococcal 13 Conjugate, PCV13 (Prevnar 13) Unknown Completed [facility] Influenza High Dose Unknown Completed [facility] Zoster(Zostavax)(Sh ingles) Unknown Completed [facility] TDAP Unknown Completed [facility] Zoster Vaccine Recombinant Unknown Completed [facility] Influenza High Dose Quad Unknown Completed [facility] SARS-COV-2 COVID-19 MODERNA 12+ YRS VACCINE Unknown Completed [facility] SARS-COV-2 COVID-19 MODERNA 0.25ML BOOSTER VACCINE Unknown Completed [facility] Remdesivir Unknown Completed [facility] Remdesivir Unknown Completed [facility] Influenza Virus Vaccine,quad Im,preserve Free 65+ (FLUAD) Unknown Completed [facility] Influenza Virus Vaccine Unknown Completed [facility] Pneumococcal Polysaccharide, PPSV23 (PNEUMOVAX) Unknown Completed [facility] Pneumococcal 13 Conjugate, PCV13 (Prevnar 13) Unknown Completed [facility] Influenza High Dose Unknown Completed [facility] Zoster(Zostavax)(Sh ingles) Unknown Completed [facility] TDAP Unknown Completed [facility] Zoster Vaccine Recombinant Unknown Completed [facility] Influenza High Dose Quad Unknown Completed [facility] SARS-COV-2 COVID-19 MODERNA 12+ YRS VACCINE Unknown Completed [facility] SARS-COV-2 COVID-19 MODERNA 0.25ML BOOSTER VACCINE Unknown Completed [facility] Remdesivir Unknown Completed [facility] Remdesivir Unknown Completed [facility] Influenza Virus Vaccine,quad Im,preserve Free 65+ (FLUAD) Unknown Completed [facility] Influenza Virus Vaccine Unknown Completed [facility] Pneumococcal Polysaccharide, PPSV23 (PNEUMOVAX) Unknown Completed [facility] Pneumococcal 13 Conjugate, PCV13 (Prevnar 13) Unknown Completed [facility] Influenza High Dose Unknown Completed [facility] Zoster(Zostavax)(Sh ingles) Unknown Completed [facility] TDAP Unknown Completed [facility] Zoster Vaccine Recombinant Unknown Completed [facility] Influenza High Dose Quad Unknown Completed [facility] SARS-COV-2 COVID-19 MODERNA 12+ YRS VACCINE Unknown Completed [facility] SARS-COV-2 COVID-19 MODERNA 0.25ML BOOSTER VACCINE Unknown Completed [facility] Remdesivir Unknown Completed [facility] Remdesivir Unknown Completed [facility] Influenza Virus Vaccine,quad Im,preserve Free 65+ (FLUAD) Unknown Completed [facility] Influenza Virus Vaccine Unknown Completed [facility] Pneumococcal Polysaccharide, PPSV23 (PNEUMOVAX) Unknown Completed [facility] Pneumococcal 13 Conjugate, PCV13 (Prevnar 13) Unknown Completed [facility] Influenza High Dose Unknown Completed [facility] Zoster(Zostavax)( ingles) Unknown Completed [facility] TDAP Unknown Completed [facility] Zoster Vaccine Recombinant Unknown Completed [facility] Influenza High Dose Quad Unknown Completed [facility] SARS-COV-2 COVID-19 MODERNA 12+ YRS VACCINE Unknown Completed [facility] SARS-COV-2 COVID-19 MODERNA 0.25ML BOOSTER VACCINE Unknown Completed [facility] Remdesivir Unknown Completed [facility] Remdesivir Unknown Completed [facility] Influenza Virus Vaccine,quad Im,preserve Free 65+ (FLUAD) Unknown Completed [facility] Influenza Virus Vaccine Unknown Completed [facility] Pneumococcal Polysaccharide, PPSV23 (PNEUMOVAX) Unknown Completed [facility] Pneumococcal 13 Conjugate, PCV13 (Prevnar 13) Unknown Completed [facility] Influenza High Dose Unknown Completed [facility] Zoster(Zostavax)(Sh ingles) Unknown Completed [facility] TDAP Unknown Completed [facility] Zoster Vaccine Recombinant Unknown Completed [facility] Influenza High Dose Quad Unknown Completed [facility] SARS-COV-2 COVID-19 MODERNA 12+ YRS VACCINE Unknown Completed [facility] SARS-COV-2 COVID-19 MODERNA 0.25ML BOOSTER VACCINE Unknown Completed [facility] Remdesivir Unknown Completed [facility] Remdesivir Unknown Completed [facility] Influenza Virus Vaccine,quad Im,preserve Free 65+ (FLUAD) Unknown Completed [facility] Influenza Virus Vaccine Unknown Completed [facility] Pneumococcal Polysaccharide, PPSV23 (PNEUMOVAX) Unknown Completed [facility] Pneumococcal 13 Conjugate, PCV13 (Prevnar 13) Unknown Completed [facility] Influenza High Dose Unknown Completed [facility] Zoster(Zostavax)(Sh ingles) Unknown Completed [facility] TDAP Unknown Completed [facility] Zoster Vaccine Recombinant Unknown Completed [facility] Influenza High Dose Quad Unknown Completed [facility] SARS-COV-2 COVID-19 MODERNA 12+ YRS VACCINE Unknown Completed [facility] SARS-COV-2 COVID-19 MODERNA 0.25ML BOOSTER VACCINE Unknown Completed [facility] Remdesivir Unknown Completed [facility] Remdesivir Unknown Completed [facility] Influenza Virus Vaccine,quad Im,preserve Free 65+ (FLUAD) Unknown Completed [facility] Influenza Virus Vaccine Unknown Completed [facility] Pneumococcal Polysaccharide, PPSV23 (PNEUMOVAX) Unknown Completed [facility] Pneumococcal 13 Conjugate, PCV13 (Prevnar 13) Unknown Completed [facility] Influenza High Dose Unknown Completed [facility] Zoster(Zostavax)(Sh ingles) Unknown Completed [facility] TDAP Unknown Completed [facility] Zoster Vaccine Recombinant Unknown Completed [facility] Influenza High Dose Quad Unknown Completed [facility] SARS-COV-2 COVID-19 MODERNA 12+ YRS VACCINE Unknown Completed [facility] SARS-COV-2 COVID-19 MODERNA 0.25ML BOOSTER VACCINE Unknown Completed [facility] Remdesivir Unknown Completed [facility] Remdesivir Unknown Completed [facility] Influenza Virus Vaccine,quad Im,preserve Free 65+ (FLUAD) Unknown Completed [facility] Influenza Virus Vaccine Unknown Completed [facility] Pneumococcal Polysaccharide, PPSV23 (PNEUMOVAX) Unknown Completed [facility] Pneumococcal 13 Conjugate, PCV13 (Prevnar 13) Unknown Completed [facility] Influenza High Dose Unknown Completed [facility] Zoster(Zostavax)(Sh ingles) Unknown Completed [facility] TDAP Unknown Completed [facility] Zoster Vaccine Recombinant Unknown Completed [facility] Influenza High Dose Quad Unknown Completed [facility] SARS-COV-2 COVID-19 MODERNA 12+ YRS VACCINE Unknown Completed [facility] SARS-COV-2 COVID-19 MODERNA 0.25ML BOOSTER VACCINE Unknown Completed [facility] Remdesivir Unknown Completed [facility] Remdesivir Unknown Completed [facility] Influenza Virus Vaccine,quad Im,preserve Free 65+ (FLUAD) Unknown Completed [facility] Influenza Virus Vaccine Unknown Completed [facility] Pneumococcal Polysaccharide, PPSV23 (PNEUMOVAX) Unknown Completed [facility] Pneumococcal 13 Conjugate, PCV13 (Prevnar 13) Unknown Completed [facility] Influenza High Dose Unknown Completed [facility] Zoster(Zostavax)( ingles) Unknown Completed [facility] TDAP Unknown Completed [facility] Zoster Vaccine Recombinant Unknown Completed [facility] Influenza High Dose Quad Unknown Completed [facility] SARS-COV-2 COVID-19 MODERNA 12+ YRS VACCINE Unknown Completed [facility] SARS-COV-2 COVID-19 MODERNA 0.25ML BOOSTER VACCINE Unknown Completed [facility] Remdesivir Unknown Completed [facility] Remdesivir Unknown Completed [facility] Influenza Virus Vaccine,quad Im,preserve Free 65+ (FLUAD) Unknown Completed [facility] Influenza Virus Vaccine Unknown Completed [facility] Pneumococcal Polysaccharide, PPSV23 (PNEUMOVAX) Unknown Completed [facility] Pneumococcal 13 Conjugate, PCV13 (Prevnar 13) Unknown Completed [facility] Influenza High Dose Unknown Completed [facility] Zoster(Zostavax)(Sh ingles) Unknown Completed [facility] TDAP Unknown Completed [facility] Zoster Vaccine Recombinant Unknown Completed [facility] Influenza High Dose Quad Unknown Completed [facility] SARS-COV-2 COVID-19 MODERNA 12+ YRS VACCINE Unknown Completed [facility] SARS-COV-2 COVID-19 MODERNA 0.25ML BOOSTER VACCINE Unknown Completed [facility] Remdesivir Unknown Completed [facility] Remdesivir Unknown Completed [facility] Influenza Virus Vaccine,quad Im,preserve Free 65+ (FLUAD) Unknown Completed [facility] Influenza Virus Vaccine Unknown Completed [facility] Pneumococcal Polysaccharide, PPSV23 (PNEUMOVAX) Unknown Completed [facility] Pneumococcal 13 Conjugate, PCV13 (Prevnar 13) Unknown Completed [facility] Influenza, High-Dose, Trivalent, PF (FLUZONE) Unknown Completed [facility] Zoster(Zostavax)(Sh ingles) Unknown Completed [facility] TDAP Unknown Completed [facility] Zoster Vaccine Recombinant Unknown Completed [facility] Influenza High Dose Quad Unknown Completed [facility] SARS-COV-2 COVID-19 MODERNA 12+ YRS VACCINE Unknown Completed [facility] SARS-COV-2 COVID-19 MODERNA 0.25ML BOOSTER VACCINE Unknown Completed [facility] Remdesivir Unknown Completed [facility] Remdesivir Unknown Completed [facility] Influenza Virus Vaccine,quad Im,preserve Free 65+ (FLUAD) Unknown Completed [facility] Influenza Virus Vaccine Unknown Completed [facility] Pneumococcal Polysaccharide, PPSV23 (PNEUMOVAX) Unknown Completed [facility] Pneumococcal 13 Conjugate, PCV13 (Prevnar 13) Unknown Completed [facility] Influenza, High-Dose, Trivalent, PF (FLUZONE) Unknown Completed [facility] Zoster(Zostavax)(Sh ingles) Unknown Completed [facility] TDAP Unknown Completed [facility] Zoster Vaccine Recombinant Unknown Completed [facility] Influenza High Dose Quad Unknown Completed [facility] SARS-COV-2 COVID-19 MODERNA 12+ YRS VACCINE Unknown Completed [facility] SARS-COV-2 COVID-19 MODERNA 0.25ML BOOSTER VACCINE Unknown Completed [facility] Remdesivir Unknown Completed [facility] Remdesivir Unknown Completed [facility] Influenza Virus Vaccine,quad Im,preserve Free 65+ (FLUAD) Unknown Completed [facility] Influenza Virus Vaccine Unknown Completed [facility] Pneumococcal Polysaccharide, PPSV23 (PNEUMOVAX) Unknown Completed [facility] Pneumococcal 13 Conjugate, PCV13 (Prevnar 13) Unknown Completed [facility] Influenza, High-Dose, Trivalent, PF (FLUZONE) Unknown Completed [facility] Zoster(Zostavax)(Sh ingles) Unknown Completed [facility] TDAP Unknown Completed [facility] Zoster Vaccine Recombinant Unknown Completed [facility] Influenza High Dose Quad Unknown Completed [facility] SARS-COV-2 COVID-19 MODERNA 12+ YRS VACCINE Unknown Completed [facility] SARS-COV-2 COVID-19 MODERNA 0.25ML BOOSTER VACCINE Unknown Completed [place] [facility] Remdesivir Unknown Completed [facility] Remdesivir Unknown Completed [facility] Influenza Virus Vaccine,quad Im,preserve Free 65+ (FLUAD) Unknown Completed [facility] Influenza Virus Vaccine Unknown Completed [facility] Pneumococcal Polysaccharide, PPSV23 (PNEUMOVAX) Unknown Completed [facility] Pneumococcal 13 Conjugate, PCV13 (Prevnar 13) Unknown Completed [facility] Influenza, High-Dose, Trivalent, PF (FLUZONE) Unknown Completed [facility] Zoster(Zostavax)( ingles) Unknown Completed [facility] TDAP Unknown Completed [facility] Zoster Vaccine Recombinant Unknown Completed [facility] Influenza High Dose Quad Unknown Completed [facility] SARS-COV-2 COVID-19 MODERNA 12+ YRS VACCINE Unknown Completed [facility] SARS-COV-2 COVID-19 MODERNA 0.25ML BOOSTER VACCINE Unknown Completed [place] [facility] Remdesivir Unknown Completed [facility] Remdesivir Unknown Completed [facility] Influenza Virus Vaccine,quad Im,preserve Free 65+ (FLUAD) Unknown Completed [facility] Influenza Virus Vaccine Unknown Completed [facility] Pneumococcal Polysaccharide, PPSV23 (PNEUMOVAX) Unknown Completed [facility] Pneumococcal 13 Conjugate, PCV13 (Prevnar 13) Unknown Completed [facility] Influenza, High-Dose, Trivalent, PF (FLUZONE) Unknown Completed [facility] Zoster(Zostavax)(Sh ingles) Unknown Completed [facility] TDAP Unknown Completed [facility] Zoster Vaccine Recombinant Unknown Completed [facility] Influenza High Dose Quad Unknown Completed [facility] SARS-COV-2 COVID-19 MODERNA 12+ YRS VACCINE Unknown Completed [facility] SARS-COV-2 COVID-19 MODERNA 0.25ML BOOSTER VACCINE Unknown Completed [facility] Remdesivir Unknown Completed [facility] Remdesivir Unknown Completed [facility] Influenza Virus Vaccine,quad Im,preserve Free 65+ (FLUAD) Unknown Completed [facility] Vital Signs Vital Name Observation Time Observation Value Comments S ource Systolic blood pressure 2024-01-08 19:10:00 120 mm[Hg] [facility] Diastolic blood pressure 2024-01-08 19:10:00 75 mm[Hg] [facility] Heart rate 2024-01-08 19:10:00 68 /min [facility] Respiratory rate 2024-01-08 19:10:00 15 /min [facility] Oxygen saturation in Arterial blood by Pulse oximetry 2024-01-08 19:10:00 97 /min [facility] Body temperature 2024-01-08 16:11:00 36.33 Annie [facility] Body height 2024-01-08 12:43:00 147.3 cm [facility] Body weight 2024-01-08 12:43:00 43.092 kg [facility] BMI 2024-01-08 12:43:00 19.86 kg/m2 [facility] Systolic blood pressure 2024-01-08 17:15:00 112 mm[Hg] [facility] Diastolic blood pressure 2024-01-08 17:15:00 64 mm[Hg] [facility] Heart rate 2024-01-08 17:15:00 76 /min [facility] Respiratory rate 2024-01-08 17:15:00 13 /min [facility] Oxygen saturation in Arterial blood by Pulse oximetry 2024-01-08 17:15:00 97 /min [facility] Body temperature 2024-01-08 16:11:00 36.33 Annie [facility] Body height 2024-01-08 12:43:00 147.3 cm [facility] Body weight 2024-01-08 12:43:00 43.092 kg Univ [facility] BMI 2024-01-08 12:43:00 19.86 kg/m2 [facility] Body height 2023-12-19 13:33:00 147.3 cm [facility] Body weight 2023-12-19 13:33:00 44.725 kg [facility] BMI 2023-12-19 13:33:00 20.61 kg/m2 [facility] Systolic blood pressure 2023-12-15 15:50:00 109 mm[Hg] [facility] Diastolic blood pressure 2023-12-15 15:50:00 72 mm[Hg] [facility] Heart rate 2023-12-15 15:50:00 85 [facility]min [facility] Body height 2023-12-15 15:50:00 147.3 cm [facility] Body weight 2023-12-15 15:50:00 45.088 kg [facility] BMI 2023-12-15 15:50:00 20.77 kg/m2 [facility] Oxygen saturation in Arterial blood by Pulse oximetry 2023-12-15 15:50:00 95 /min [facility] Body height 2023-11-07 14:08:00 147.3 cm [facility] Body weight 2023-11-07 14:08:00 46.72 kg [facility] BMI 2023-11-07 14:08:00 21.53 kg/m2 Univ [facility] Systolic blood pressure 2023-10-26 19:59:00 113 mm[Hg] [facility] Diastolic blood pressure 2023-10-26 19:59:00 73 mm[Hg] [facility] Heart rate 2023-10-26 19:59:00 78 /min Unive [facility] Respiratory rate 2023-10-26 19:59:00 18 /min [facility] Body height 2023-10-26 19:59:00 149.9 cm [facility] 2023-10-26 19:59:00 44.997 kg [facility] BMI 2023-10-26 19:59:00 20.04 kg/m2 [facility] Oxygen saturation in Arterial blood by Pulse oximetry 2023-10-26 19:59:00 96 /min [facility] Systolic blood pressure 2023-10-24 19:42:00 120 mm[Hg] [facility] Diastolic blood pressure 2023-10-24 19:42:00 75 mm[Hg] [facility] Heart rate 2023-10-24 19:42:00 91 /min Unive [facility] Respiratory rate 2023-10-24 19:42:00 19 /min [facility] Body weight 2023-10-24 19:42:00 44.226 kg [facility] BMI 2023-10-24 19:42:00 20.38 kg/m2 [facility] Oxygen saturation in Arterial blood by Pulse oximetry 2023-10-24 19:42:00 96 /min [facility] Systolic blood pressure 2023-10-05 14:14:00 112 mm[Hg] [facility] Diastolic blood pressure 2023-10-05 14:14:00 72 mm[Hg] [facility] Heart rate 2023-10-05 14:14:00 91 /min Unive [facility] Body height 2023-10-05 14:14:00 147.3 cm [facility] Body weight 2023-10-05 14:14:00 43.954 kg [facility] BMI 2023-10-05 14:14:00 20.25 kg/m2 [facility] Oxygen saturation in Arterial blood by Pulse oximetry 2023-10-05 14:14:00 97 /min [facility] Systolic blood pressure 2023-09-18 15:40:00 92 mm[Hg] [facility] Diastolic blood pressure 2023-09-18 15:40:00 80 mm[Hg] [facility] Heart rate 2023-09-18 15:40:00 65 /min Unive [facility] Body temperature 2023-09-18 15:40:00 36.17 Annie [facility] Respiratory rate 2023-09-18 15:40:00 14 /min [facility] Oxygen saturation in Arterial blood by Pulse oximetry 2023-09-18 15:40:00 97 /min [facility] Body weight 2023-09-12 17:00:00 44.906 kg [facility] BMI 2023-09-12 17:00:00 20.00 kg/m2 [facility] Systolic blood pressure 2023-09-18 15:40:00 92 mm[Hg] [facility] Diastolic blood pressure 2023-09-18 15:40:00 80 mm[Hg] [facility] Heart rate 2023-09-18 15:40:00 65 /min Unive [facility] Body temperature 2023-09-18 15:40:00 36.17 Annie [facility] Respiratory rate 2023-09-18 15:40:00 14 /min [facility] Oxygen saturation in Arterial blood by Pulse oximetry 2023-09-18 15:40:00 97 /min [facility] Body weight 2023-09-12 17:00:00 44.906 kg [facility] BMI 2023-09-12 17:00:00 20.00 kg/m2 [facility] Body height 2023-09-12 13:05:00 149.9 cm [facility] Body weight 2023-09-12 13:05:00 44.906 kg [facility] BMI 2023-09-12 13:05:00 20.00 kg/m2 [facility] Systolic blood pressure 2023-09-08 18:09:00 115 mm[Hg] [facility] Diastolic blood pressure 2023-09-08 18:09:00 72 mm[Hg] [facility] Heart rate 2023-09-08 18:09:00 85 /min Unive [facility] Body temperature 2023-09-08 18:09:00 36.17 Annie [facility] Respiratory rate 2023-09-08 18:09:00 18 /min [facility] Body height 2023-09-08 18:09:00 149.9 cm [facility] Body weight 2023-09-08 18:09:00 44.044 kg [facility] BMI 2023-09-08 18:09:00 19.61 kg/m2 [facility] Oxygen saturation in Arterial blood by Pulse oximetry 2023-09-08 18:09:00 96 /min [facility] Systolic blood pressure 2023-06-15 15:30:00 102 mm[Hg] [facility] Diastolic blood pressure 2023-06-15 15:30:00 61 mm[Hg] [facility] Heart rate 2023-06-15 15:30:00 80 /min [facility] Body height 2023-06-15 15:30:00 147.3 cm [facility] Body weight 2023-06-15 15:30:00 45.133 kg [facility] BMI 2023-06-15 15:30:00 20.80 kg/m2 [facility] Oxygen saturation in Arterial blood by Pulse oximetry 2023-06-15 15:30:00 96 /min [facility] Body height 2023-05-25 14:23:00 147.3 cm [facility] Body weight 2023-05-25 14:23:00 44.997 kg [facility] BMI 2023-05-25 14:23:00 20.73 kg/m2 [facility] Systolic blood pressure 2023-05-14 15:26:00 120 mm[Hg] [facility] Diastolic blood pressure 2023-05-14 15:26:00 76 mm[Hg] [facility] Heart rate 2023-05-14 15:26:00 87 /min Unive [facility] Body temperature 2023-05-14 15:26:00 36.5 Annie [facility] Respiratory rate 2023-05-14 15:26:00 14 /min [facility] Body height 2023-05-14 15:26:00 147.3 cm [facility] Body weight 2023-05-14 15:26:00 46.267 kg [facility] BMI 2023-05-14 15:26:00 21.32 kg/m2 [facility] Oxygen saturation in Arterial blood by Pulse oximetry 2023-05-14 15:26:00 95 /min [facility] Systolic blood pressure 2022-12-21 15:44:00 113 mm[Hg] [facility] Diastolic blood pressure 2022-12-21 15:44:00 71 mm[Hg] [facility] Heart rate 2022-12-21 15:44:00 91 /min Unive [facility] Body temperature 2022-12-21 15:44:00 36.44 Annie [facility] Respiratory rate 2022-12-21 15:44:00 20 /min [facility] Body height 2022-12-21 15:44:00 147.3 cm [facility] Body weight 2022-12-21 15:44:00 47.628 kg [facility] BMI 2022-12-21 15:44:00 21.95 kg/m2 [facility] Oxygen saturation in Arterial blood by Pulse oximetry 2022-12-21 15:44:00 98 /min [facility] Systolic blood pressure 2022-12-21 15:44:00 113 mm[Hg] [facility] Diastolic blood pressure 2022-12-21 15:44:00 71 mm[Hg] [facility] Heart rate 2022-12-21 15:44:00 91 [facility] Body temperature 2022-12-21 15:44:00 36.44 Annie [facility] Respiratory rate 2022-12-21 15:44:00 20 /min [facility] Body height 2022-12-21 15:44:00 147.3 cm [facility] Body weight 2022-12-21 15:44:00 47.628 kg [facility] BMI 2022-12-21 15:44:00 21.95 kg/m2 [facility] Oxygen saturation in Arterial blood by Pulse oximetry 2022-12-21 15:44:00 98 /min [facility] Systolic blood pressure 2022-11-11 21:27:00 130 mm[Hg] [facility] Diastolic blood pressure 2022-11-11 21:27:00 74 mm[Hg] [facility] Heart rate 2022-11-11 21:27:00 88 /min Unive [facility] Body height 2022-11-11 21:27:00 148.6 cm [facility] Body weight 2022-11-11 21:27:00 48.535 kg [facility] BMI 2022-11-11 21:27:00 21.98 kg/m2 [facility] Oxygen saturation in Arterial blood by Pulse oximetry 2022-11-11 21:27:00 96 /min [facility] Systolic blood pressure 2022-10-21 14:00:00 112 mm[Hg] [facility] Diastolic blood pressure 2022-10-21 14:00:00 70 mm[Hg] [facility] Heart rate 2022-10-21 14:00:00 83 /min Unive [facility] Body temperature 2022-10-21 14:00:00 36.78 Annie [facility] Body height 2022-10-21 14:00:00 147.3 cm [facility] Body weight 2022-10-21 14:00:00 47.673 kg [facility] BMI 2022-10-21 14:00:00 21.97 kg/m2 [facility] Oxygen saturation in Arterial blood by Pulse oximetry 2022-10-21 14:00:00 94 /min [facility] Systolic blood pressure 2022-10-16 20:00:00 127 mm[Hg] [facility] Diastolic blood pressure 2022-10-16 20:00:00 77 mm[Hg] [facility] Heart rate 2022-10-16 20:00:00 61 /min Unive [facility] Respiratory rate 2022-10-16 20:00:00 17 /min [facility] Oxygen saturation in Arterial blood by Pulse oximetry 2022-10-16 20:00:00 94 /min [facility] Body temperature 2022-10-16 16:27:00 37.28 Annie [facility] Body height 2022-10-16 16:27:00 147.3 cm [facility] Body weight 2022-10-16 16:27:00 45.36 kg [facility] BMI 2022-10-16 16:27:00 20.90 kg/m2 [facility] Systolic blood pressure 2022-10-16 15:59:00 134 mm[Hg] [facility] Diastolic blood pressure 2022-10-16 15:59:00 81 mm[Hg] [facility] Heart rate 2022-10-16 15:59:00 79 /min Unive [facility] Body temperature 2022-10-16 15:59:00 36.39 Annie [facility] Respiratory rate 2022-10-16 15:59:00 14 /min [facility] Body height 2022-10-16 15:59:00 149.9 cm [facility] Body weight 2022-10-16 15:59:00 47.174 kg [facility] BMI 2022-10-16 15:59:00 21.01 kg/m2 [facility] Oxygen saturation in Arterial blood by Pulse oximetry 2022-10-16 15:59:00 97 /min [facility] Systolic blood pressure 2022-09-07 17:00:00 109 mm[Hg] [facility] Diastolic blood pressure 2022-09-07 17:00:00 74 mm[Hg] [facility] Heart rate 2022-09-07 17:00:00 76 /min Unive [facility] Body temperature 2022-09-07 17:00:00 36.22 Annie [facility] Body height 2022-09-07 17:00:00 149.9 cm [facility] Body weight 2022-09-07 17:00:00 47.582 kg [facility] BMI 2022-09-07 17:00:00 21.19 kg/m2 [facility] Oxygen saturation in Arterial blood by Pulse oximetry 2022-09-07 17:00:00 95 /min [facility] Systolic blood pressure 2022-07-20 14:36:00 104 mm[Hg] [facility] Diastolic blood pressure 2022-07-20 14:36:00 65 mm[Hg] [facility] Heart rate 2022-07-20 14:36:00 78 /min [facility] Res[facility] rate 2022-07-20 14:36:00 18 /min [facility] Body height 2022-07-20 14:36:00 147.3 cm [facility] Body weight 2022-07-20 14:36:00 48.081 kg [facility] BMI 2022-07-20 14:36:00 22.15 kg/m2 [facility] Oxygen saturation in Arterial blood by Pulse oximetry 2022-07-20 14:36:00 95 /min [facility] Systolic blood pressure 2022-07-20 14:30:00 104 mm[Hg] [facility] Diastolic blood pressure 2022-07-20 14:30:00 65 mm[Hg] [facility] Heart rate 2022-07-20 14:30:00 78 /min Unive [facility] Respiratory rate 2022-07-20 14:30:00 18 /min [facility] Body height 2022-07-20 14:30:00 147.3 cm [facility] Body weight 2022-07-20 14:30:00 48.081 kg [facility] BMI 2022-07-20 14:30:00 22.15 kg/m2 [facility] Oxygen saturation in Arterial blood by Pulse oximetry 2022-07-20 14:30:00 95 /min [facility] Body height 2022-04-21 16:25:00 149.9 cm [facility] Body weight 2022-04-21 16:25:00 47.174 kg [facility] BMI 2022-04-21 16:25:00 21.01 kg/m2 [facility] Systolic blood pressure 2022-04-20 20:55:00 116 mm[Hg] [facility] Diastolic blood pressure 2022-04-20 20:55:00 69 mm[Hg] [facility] Heart rate 2022-04-20 20:55:00 86 /min Unive [facility] Respiratory rate 2022-04-20 20:55:00 18 /min [facility] Body weight 2022-04-20 20:55:00 47.174 kg [facility] BMI 2022-04-20 20:55:00 21.01 kg/m2 [facility] Oxygen saturation in Arterial blood by Pulse oximetry 2022-04-20 20:55:00 96 /min [facility] Systolic blood pressure 2022-04-15 18:34:00 109 mm[Hg] [facility] Diastolic blood pressure 2022-04-15 18:34:00 74 mm[Hg] [facility] Heart rate 2022-04-15 18:34:00 94 /min [facility] Body temperature 2022-04-15 18:34:00 36.83 Annie [facility] Respiratory rate 2022-04-15 18:34:00 16 /min [facility] Body height 2022-04-15 18:34:00 149.9 cm [facility] Body weight 2022-04-15 18:34:00 47.854 kg [facility] BMI 2022-04-15 18:34:00 21.31 kg/m2 [facility] Oxygen saturation in Arterial blood by Pulse oximetry 2022-04-15 18:34:00 95 /min [facility] Systolic blood pressure 2022-03-07 14:18:00 110 mm[Hg] [facility] Diastolic blood pressure 2022-03-07 14:18:00 71 mm[Hg] [facility] Heart rate 2022-03-07 14:18:00 86 /min [facility] Body temperature 2022-03-07 14:18:00 36.44 Annie [facility] Respiratory rate 2022-03-07 14:18:00 18 /min [facility] Body height 2022-03-07 14:18:00 147.3 cm [facility] Body weight 2022-03-07 14:18:00 46.267 kg [facility] BMI 2022-03-07 14:18:00 21.32 kg/m2 [facility] Heart rate 2022-03-02 14:06:00 84 /min [facility] Body weight 2022-03-02 14:06:00 47.945 kg [facility] BMI 2022-03-02 14:06:00 22.09 kg/m2 [facility] Oxygen saturation in Arterial blood by Pulse oximetry 2022-03-02 14:06:00 97 /min [facility] Systolic blood pressure 2022-03-02 14:06:00 127 mm[Hg] [facility] Diastolic blood pressure 2022-03-02 14:06:00 70 mm[Hg] [facility] Systolic blood pressure 2022-02-22 22:00:00 124 mm[Hg] [facility] Diastolic blood pressure 2022-02-22 22:00:00 81 mm[Hg] [facility] Heart rate 2022-02-22 22:00:00 78 /min [facility]ive [facility] Body temperature 2022-02-22 22:00:00 36.5 Annie [facility] Respiratory rate 2022-02-22 22:00:00 21 /min [facility] Oxygen saturation in Arterial blood by Pulse oximetry 2022-02-22 22:00:00 95 /min [facility] Body weight 2022-02-22 09:31:00 48.988 kg [facility] BMI 2022-02-22 09:31:00 22.57 kg/m2 [facility] Body height 2022-02-20 22:03:00 147.3 cm [facility] Systolic blood pressure 2022-02-20 17:08:00 116 mm[Hg] [facility] Diastolic blood pressure 2022-02-20 17:08:00 71 mm[Hg] [facility] Heart rate 2022-02-20 17:08:00 83 /min Un[facility] Body temperature 2022-02-20 17:08:00 37.06 Annie [facility] Respiratory rate 2022-02-20 17:08:00 16 /min [facility] Body height 2022-02-20 17:08:00 175.3 cm [facility] Body weight 2022-02-20 17:08:00 89.767 kg [facility] BMI 2022-02-20 17:08:00 29.22 kg/m2 [facility] Oxygen saturation in Arterial blood by Pulse oximetry 2022-02-20 17:08:00 98 /min [facility] Systolic blood pressure 2022-02-08 16:10:00 132 mm[Hg] [facility] Diastolic blood pressure 2022-02-08 16:10:00 73 mm[Hg] [facility] Heart rate 2022-02-08 16:10:00 76 /min Unive [facility] Body temperature 2022-02-08 16:10:00 37.06 Annie [facility] Respiratory rate 2022-02-08 16:10:00 16 /min [facility] Body height 2022-02-08 16:10:00 147.3 cm [facility] Body weight 2022-02-08 16:10:00 48.223 kg [facility] BMI 2022-02-08 16:10:00 22.22 kg/m2 [facility] Oxygen saturation in Arterial blood by Pulse oximetry 2022-02-08 16:10:00 98 /min [facility] Systolic blood pressure 2021-08-07 15:15:00 113 mm[Hg] [facility] Diastolic blood pressure 2021-08-07 15:15:00 75 mm[Hg] [facility] Heart rate 2021-08-07 15:15:00 75 /min Un[facility] Body temperature 2021-08-07 15:15:00 36.94 Annie [facility] Respiratory rate 2021-08-07 15:15:00 14 /min [facility] Body height 2021-08-07 15:15:00 147.3 cm [facility] Body weight 2021-08-07 15:15:00 48.308 kg [facility] BMI 2021-08-07 15:15:00 22.26 kg/m2 [facility] Oxygen saturation in Arterial blood by Pulse oximetry 2021-08-07 15:15:00 98 /min [facility] Systolic blood pressure 2021-08-06 01:32:00 137 mm[Hg] [facility] Diastolic blood pressure 2021-08-06 01:32:00 81 mm[Hg] [facility] Heart rate 2021-08-06 01:32:00 76 /min Un[facility] Body temperature 2021-08-06 01:32:00 36.28 Annie [facility] Respiratory rate 2021-08-06 01:32:00 16 /min [facility] Body height 2021-08-06 01:32:00 147.3 cm [facility] Body weight 2021-08-06 01:32:00 49.896 kg [facility] BMI 2021-08-06 01:32:00 22.99 kg/m2 [facility] Oxygen saturation in Arterial blood by Pulse oximetry 2021-08-06 01:32:00 99 /min [facility] Systolic blood pressure 2021-08-06 00:58:00 133 mm[Hg] [facility] Diastolic blood pressure 2021-08-06 00:58:00 77 mm[Hg] [facility] Heart rate 2021-08-06 00:58:00 70 /min Un[facility] Body temperature 2021-08-06 00:58:00 36.78 Annie [facility] Respiratory rate 2021-08-06 00:58:00 16 /min [facility] Body height 2021-08-06 00:58:00 147.3 cm [facility] Body weight 2021-08-06 00:58:00 48.535 kg [facility] BMI 2021-08-06 00:58:00 22.36 kg/m2 [facility] Oxygen saturation in Arterial blood by Pulse oximetry 2021-08-06 00:58:00 99 /min [facility] Systolic blood pressure 2021-07-26 16:52:00 114 mm[Hg] [facility] Diastolic blood pressure 2021-07-26 16:52:00 72 mm[Hg] [facility] Heart rate 2021-07-26 16:52:00 81 /min [facility] Body height 2021-07-26 16:52:00 147.3 cm [facility] Body weight 2021-07-26 16:52:00 47.9 kg [facility] BMI 2021-07-26 16:52:00 22.07 kg/m2 [facility] Oxygen saturation in Arterial blood by Pulse oximetry 2021-07-26 16:52:00 96 /min [facility] Procedures Procedure Date / Time Performed Performing Clinician Source XR HIPS 2 VW LEFT 2024-01-08 16:30:00 Caitlyn Rosario [facility] TOTAL HIP ARTHROPLASTY 2024-01-08 13:54:00 Ania Rosario [facility] CBC WITH DIFF 2024-01-08 12:50:00 Bhavik Leon [facility] HB ABO GROUPING 2024-01-08 12:50:00 Caitlyn Rosario [facility] CBC WITH DIFF 2024-01-08 12:50:00 Bhavik Leon [facility] HB ABO GROUPING 2024-01-08 12:50:00 Caitlyn Rosario [facility] XR HIPS 3 VW LEFT 2023-12-19 13:55:09 Caitlyn Rosario [facility] FL TIME OR (NON-REPORTABLE) 2023-09-18 15:10:43 Caitlyn Rosario [facility] FL TIME OR (NON-REPORTABLE) 2023-09-18 15:10:43 Caitlyn Rosario [facility] [address] - UT ARTHROCENTESIS ASPIR&/INJ MAJOR JT/BURSA W/O US 2023-09-18 14:49:00 Caitlyn Rosario [facility] [id number] - CHG CT GUIDANCE NEEDLE PLACEMENT 2023-09-18 14:49:00 Caitlyn Rosario [facility] XR HIPS 2 VW LEFT 2023-05-25 14:35:08 Caitlyn Rosario [facility] PHYSICIAN CERTIFICATION STATEMENT 2023-05-23 06:01:00 Doctor Unassigned, [place] [facility] AUTHORIZATION FOR RELEASE OF PHI 2023-02-03 05:01:00 Doctor Unassigned, [place] [facility] DME/SUPPLY JUSTIFICATION 2023-01-24 05:01:00 Doc tor Unassigned, [place] [facility] FLU VACC([id number]),65+YR,0.5 ML,IM,ADJUVANTED,QUAD(FLU AD) 2023-01-20 20:16:03 Doctor Unassigned, [place] [facility] URINE CULTURE 2022-12-21 16:59:00 Doron Ortiz U [facility] VITAMIN D, 25-OH 2022-12-21 16:22:00 Shakira Ortiz [facility] VITAMIN B12, LEVEL 2022-12-21 16:22:00 Maritza Bear [facility] FOLATE 2022-12-21 16:22:00 Norberto Bear [facility] VITAMIN D, 25-OH 2022-12-21 16:22:00 Shakira Ortiz [facility] TROPONIN I 2022-10-16 18:40:00 Aysha Alonso [facility] XR CHEST 2 VW 2022-10-16 17:19:52 Aysha Alonso U [facility] CT HEAD WO CONTRAST 2022-10-16 17:19:28 Payton Alonso [facility] MAGNESIUM 2022-10-16 16:48:00 Aysha Alonso [facility] TROPONIN I 2022-10-16 16:48:00 Aysha Alonso [facility] COMP. METABOLIC PANEL (37970) 2022-10-16 16:48:00 Aysha Alonso [facility] CBC WITH DIFF 2022-10-16 16:48:00 Aysha Alonso U [facility] PROTHROMBIN TIME / INR 2022-10-16 16:48:00 Aysha Alonso [facility] ACTIVATED PARTIAL THRMPLAS YEIMY 2022-10-16 16:48:00 Aysha Alonso [facility] URINALYSIS 2022-10-16 16:48:00 Aysha Alonso [facility] N-TERMINAL PRO-BNP 2022-10-16 16:48:00 Lisa Alonso [facility] CONSENT/REFUSAL FOR DIAGNOSIS AND TREATMENT 2022-10-16 16:21:49 Doctor Unassigned, [place] [facility] CONSENT/REFUSAL FOR DIAGNOSIS AND TREATMENT 2022-09-07 16:50:18 Doctor Unassigned, [place] [facility] DEXA AXIAL (HIP AND SPINE) 2022-07-04 18:00:26 Cassia Parker [facility] XR CHEST 2 VW 2022-03-07 15:36:04 Doron Ortiz U [facility] ASSIGNMENT OF BENEFITS 2022-03-07 15:15:21 Docto r Unassigned, [place] [facility] MAGNESIUM 2022-02-22 09:31:00 Venecia Calloway [facility] BASIC METABOLIC PANEL (NA, K, CL, CO2, GLUCOSE, BUN, CREATININE, CA) 2022-02-22 09:31:00 Venecia Calloway [facility] TROPONIN I 2022-02-21 21:51:00 Venecia Calloway [facility] TRANSTHORACIC ECHO (TTE) COMPLETE 2022-02-21 17:31:00 Alonso Monaco [facility] MAGNESIUM 2022-02-21 11:50:00 Venecia Calloway [facility] TROPONIN I 2022-02-21 11:50:00 Venecia Calloway [facility] BASIC METABOLIC PANEL (NA, K, CL, CO2, GLUCOSE, BUN, CREATININE, CA) 2022-02-21 11:50:00 Venecia Calloway [facility] LIPID PANEL ([id number])(TOTAL CHOLESTEROL, TRIGLYCERIDES, HDL) 2022-02-21 11:50[facility] 2022-02-21 11:50:00 Venecia Calloway [facility] PNEUMOCOCCAL ANTIGEN 2022-02-21 06:45:00 Venecia Calloway [facility] TROPONIN I 2022-02-21 06:44:00 Venecia Calloway [facility] TROPONIN I 2022-02-20 23:23:00 Venecia Callowya [facility] THYROID STIMULATING HORMONE 2022-02-20 23:23:00 [facility] PROCALCIT[facility]IN 2022-02-20 23:23:00 Venecia Calloway [facility] MRSA / MSSA SCREEN BY PCR, LEMUEL 2022-02-20 23:23:00 Venecia Calloway [facility] CT CHEST PULMONARY ANGIOGRAM 2022-02-20 19:40:10 Rene Kay [facility] HB ECG ROUTINE & RHYTHM STRIP 2022-02-20 18:50:04 Rene Kay [facility] TROPONIN I 2022-02-20 18:45:00 Rene Kay [facility] COMP. METABOLIC PANEL ([id number]) 2022-02-20 18:45:00 Rene Kay [facility] CBC WITH DIFF 2022-02-20 18:45:[address] [facility] GLYCOSYLATED HEMOGLOBIN (A1C) 2022-02-20 18:45:00 Alonso Monaco [facility] COVID-19 (ID NOW RAPID TESTING) 2022-02-20 18:45:00 Rene Kay [facility] LAB ONLY COVID INTERPRETATION 2022-02-20 18:45:00 Rene Kay [facility] POCT SARS-COV-2 ANTIGEN (BINAX NOW) 2022-02-20 18:18:00 Tracey Cedeno [facility] CONSENT/REFUSAL FOR DIAGNOSIS AND TREATMENT 2022-02-20 18:17:21 Doctor Unassigned, [place] [facility] POCT MOLECULAR STREP 2022-02-20 17:28:00 Unknown, Atte nding [facility] POCT MOLECULAR FLU 2022-02-20 17:27:00 Unknown, Attend ing [facility] NOTICE OF PRIVACY PRACTICES 2021-08-06 01:19:38 Doctor Unassigned, [place] [facility] CONSENT/REFUSAL FOR DIAGNOSIS AND TREATMENT 2021-08-06 01:13:34 Doctor Unassigned, [place] [facility] ASSIGNMENT OF BENEFITS 2021-08-06 00:29:21 Docto r Unassigned, [place] [facility] Encounters Start Date/Time End Date/Time Encounter Type Admission Type Attending [facility] Care Facility Care Department Encounter ID Source 2024-02-22 10:00:00 2024-02-22 10:00:00 Outpatient R CAITLYN ROSARIO CRAIG [facility] [id number] [facility] 2024-02-15 00:00:00 2024-02-15 00:00:00 Outpatient JERRY LEY [facility] [id number] [facility] 2024-01-31 00:00:00 2024-01-31 16:15:09 Telephone Caitlyn Rosario [facility] 1..840.114 350.1.13.10 4.2.7.2.686 [id number] [facility] 2024-01-22 14:51:15 2024-01-22 23:59:00 Hospital Encounter Caitlyn Rosario [facility] 1..840.114 350.1.13.10 4.2.7.2.686 [id number] [facility] 2024-01-22 14:30:00 2024-01-22 15:19:11 Outpatient R CAITLYN ROSARIO CRAIG [facility] [id number] [facility] 2024-01-22 14:30:00 2024-01-22 15:19:11 Office Visit Caitlyn Rosario [facility] 1.2.840.114 350.1.13.10 4.2.7.2.686 [id number] [facility] 2024-01-19 00:00:00 2024-01-19 13:47:23 Telephone Caitlyn Rosario [facility] 1.2.840.114 350.1.13.10 4.2.7.2.686 [id number] [facility] 2024-01-10 00:00:00 2024-01-12 09:06:05 Telephone ThiagoKrystianLoyda [facility] 1.2.840.114 350.1.13.10 4.2.7.2.686 [id number] [facility] 2024-01-11 09:00:00 2024-01-11 09:23:32 Outpatient R CAITLYN ROSARIO CRAIG [facility] [id number] [facility] 2024-01-11 09:00:00 2024-01-11 09:23:32 Office Visit Brianna Grant Craig [facility] 1.2.840.114 350.1.13.10 4.2.7.2.686 [id number] [facility] 2024-01-09 00:00:00 2024-01-10 15:33:06 Telephone Caitlyn Rosario [facility] 1.2.840.114 350.1.13.10 4.2.7.2.686 [id number] [facility] 2024-01-08 07:32:00 2024-01-08 14:20:00 Outpatient R CAITLYN ROSARIO CRAIG [facility] [id number] [facility] 2024-01-08 07:32:00 2024-01-08 14:20:00 Hospital Encounter Caitlyn Rosario [facility] 1.2.840.114 350.1.13.10 4.2.7.2.686 [id number] [facility] 2024-01-08 09:20:00 2024-01-08 12:19:00 Surgery Caitlyn Rosario [facility] 1.2.840.114 350.1.13.10 4.2.7.2.686 [id number] [facility] 2024-01-05 00:00:00 2024-01-05 14:21:57 [facility] BUILD[facility] 1.2.840.114 350.1.13.10 4.2.7.2.686 [id number] [facility] 2024-01-02 09:15:00 2024-01-02 09:30:00 Consulting Group Analyst Visit 2, Adc Lab Caitlyn Rosario 2, Adc Lab [facility] NAL BUILDING 1.2.840.114 350.1.13.10 4.2.7.2.686 [id number] [facility] 2024-01-02 09:15:00 2024-01-02 09:15:00 Outpatient R [facility] [id number] [facility] 2023-12-29 10:15:00 2023-12-29 11:12:05 Outpatient R CAITLYN ROSARIO CRAIG [facility] [id number] [facility] 2023-12-29 10:15:00 2023-12-29 11:12:05 Ancillary Visit Kumar Choe Craig L Brown, [facility] 1.2.840.114 350.1.13.10 4.2.7.2.686 [id number] [facility] 2023-12-19 08:40:11 2023-12-19 23:59:00 Outpatient R CAITLYN ROSARIO CRAIG [facility] [id number] [facility] 2023-12-19 08:40:11 2023-12-19 23:59:00 Hospital Encounter Caitlyn Rosario [facility] 1.2.840.114 350.1.13.10 4.2.7.2.686 [id number] [facility] 2023-12-19 00:00:00 2023-12-19 12:03:24 Prep For Surgery Caitlyn Rosario [facility] 1.2.840.114 350.1.13.10 4.2.7.2.686 [id number] [facility] 2023-12-19 09:00:00 2023-12-19 09:27:53 Office Visit Caitlyn Rosario [facility] 1.2.840.114 350.1.13.10 4.2.7.2.686 [id number] [facility] 2023-12-15 10:30:00 2023-12-15 11:45:04 Outpatient R JERRY IBARRA [facility] [id number] [facility] 2023-12-15 10:30:00 2023-12-15 11:45:04 Office Visit Jerry Ibarra [facility] 1..840.114 350.1.13.10 4.2.7.2.686 [id number] [facility] 2023-11-10 09:30:00 2023-11-10 09:30:00 Outpatient R JERRY IBARRA [facility] [id number] [facility] 2023-11-07 09:30:00 2023-11-07 09:30:00 Office Visit Caitlyn Rosario [facility] 1..840.114 350.1.13.10 4.2.7.2.686 [id number] [facility] 2023-11-07 09:30:00 2023-11-07 09:29:45 Outpatient R CAITLYN ROSARIO CRAIG [facility] [id number] [facility] 2023-10-26 15:20:00 2023-10-26 15:52:36 Outpatient R LOYDA MCDONOUGH [facility] [id number] [facility] 2023-10-26 15:20:00 2023-10-26 15:52:36 Office Visit Thiago [facility] 1..840.114 350.1.13.10 4.2.7.2.686 [id number] [facility] 2023-10-24 14:30:00 2023-10-24 15:00:00 Office Visit Betty Grande [facility] 1..840.114 350.1.13.10 4.2.7.2.686 [id number] [facility] 2023-10-24 14:30:00 2023-10-24 14:30:00 [facility] [id number] [facility] 2023-10-24 08:00:00 2023-10-24 08:00:00 Outpatient R BETTY GRANDE [facility] [id number] [facility] 2023-09-11 00:00:00 2023-10-14 18:19:46 Patient Secure Msg Doctor Unassigned, [place] [facility] 1..840.114 350.1.13.10 4.2.7.2.686 [id number] [facility] 2023-10-05 09:30:00 2023-10-05 09:32:11 Outpatient R CAITLYN ROSARIO CRAIG [facility] [id number] [facility] 2023-10-05 09:30:00 2023-10-05 09:32:11 [facility] 1..840.114 350.1.13.10 4.2.7.2.686 [id number] [facility] 2023-09-18 08:52:00 2023-09-18 11:05:00 Outpatient R CAITLYN ROSARIO CRAIG [facility] [id number] [facility] 2023-09-18 08:52:00 2023-09-18 11:05:00 Hospital Encounter Caitlyn Rosario [facility] 1..840.114 350.1.13.10 4.2.7.2.686 [id number] [facility] 2023-09-18 10:40:00 2023-09-18 11:01:00 Surgery Caitlyn Rosario [facility] 1..840.114 350.1.13.10 4.2.7.2.686 [id number] [facility] 2023-09-12 12:15:00 2023-09-12 12:30:00 Consulting Group Analyst Visit Pob, Adc Lab Main Caitlyn Rosario [facility] NAL BUILDING 1.2.840.114 350.1.13.10 4.2.7.2.686 [id number] [facility] 2023-09-12 00:00:00 2023-09-12 08:35:06 Prep For Surgery Caitlyn Rosario [facility] 1.2.840.114 350.1.13.10 4.2.7.2.686 [id number] [facility] 2023-09-12 08:30:00 2023-09-12 08:30:00 Office Visit Caitlyn Rosario [facility] OFF[facility] BUILDING 1.2.840.114 350.1.13.10 4.2.7.2.686 [id number] [facility] 2023-09-12 08:30:00 2023-09-12 08:28:13 Outpatient R CAITLYN ROSARIO CAITLYN [facility] [id number] [facility] 2023-09-08 13:00:00 2023-09-08 13:31:32 Outpatient LOYDA MORRIS CHRISTINE [facility] [id number] [facility] 2023-09-08 13:00:00 2023-09-08 13:31:32 Office Visit Loyda Mcdonough [facility] 1.2.840.114 350.1.13.10 4.2.7.2.686 [id number] [facility] 2023-08-24 09:20:00 2023-08-24 09:20:00 Outpatient LOYDA MORRIS CHRISTINE [facility] [id number] [facility] 2023-08-21 10:20:00 2023-08-21 10:20:00 Outpatient LOYDA MORRIS CHRISTINE [facility] [id number] [facility] 2023-06-15 09:45:00 2023-06-15 09:45:00 Office Visit Caitlyn Rosario [facility] 1.114 350.1.13.10 4.2.7.2.686 [id number] [facility] 2023-06-15 09:45:00 2023-06-15 09:38:21 Outpatient R CAITLYN ROSARIO CRAIG [facility] [id number] [facility] 2023-06-07 17:42:00 2023-06-07 23:59:00 Hospital Encounter Caitlyn Rosario [facility] 1..114 350.1.13.10 4.2.7.2.686 [id number] [facility] 2023-06-07 00:00:00 2023-06-07 23:59:00 Outpatient R CAITLYN ROSARIO CRAIG [facility] OUT [id number] [facility] 2023-05-31 13:47:32 2023-05-31 23:59:00 Outpatient R CAITLYN ROSARIO CRAIG [facility] [id number] [facility] 2023-05-31 13:47:32 2023-05-31 23:59:00 Hospital Encounter Caitlyn Rosario [facility] 1..114 350.1.13.10 4.2.7.2.686 [id number] [facility] 2023-05-31 09:45:00 2023-05-31 10:00:00 Consulting Group Analyst Visit Lab, Caitlyn Espinal [facility] 1..114 350.1.13.10 4.2.7.2.686 [id number] [facility] 2023-05-30 09:58:39 2023-05-30 23:59:00 Outpatient R ROSARIO, CAITLYN MARTINES [facility] [id number] [facility] 2023-05-30 09:58:39 2023-05-30 23:59:00 Hospital Encounter Caitlyn Rosario [facility] 1.2840.114 350.1.13.10 4.2.7.2.686 [id number] [facility] 2023-05-29 00:00:00 2023-05-29 00:00:00 Telephone Caitlyn Rosario [facility] 1.284.114 350.1.13.10 4.2.7.2.686 [id number] [facility] 2023-05-29 00:00:00 2023-05-29 00:00:00 Telephone Caitlyn Rosario [facility] 1.2840.114 350.1.13.10 4.2.7.2.686 [id number] [facility] 2023-05-25 08:25:14 2023-05-25 23:59:00 Hospital Encounter Caitlyn Rosario [facility] 1.2840.114 350.1.13.10 4.2.7.2.686 [id number] [facility] 2023-05-25 08:45:00 2023-05-25 09:11:17 Outpatient R ROSARIO, CAITLYN MARTINES [facility] [id number] [facility] 2023-05-25 08:45:00 2023-05-25 09:11:17 Office Visit Caitlyn Rosario [facility] 1.284.114 350.1.13.10 4.2.7.2.686 [id number] [facility] 2023-05-23 00:00:00 2023-05-23 00:00:00 [facility] 1.2.840.114 350.1.13.10 4.2.7.2.686 [id number] [facility] 2023-05-23 00:00:00 2023-05-23 00:00:00 Orders Only Doctor Unassigned, [place] [facility] 1.2840.114 350.1.13.10 4.2.7.2.686 [id number] [facility] 2023-05-22 00:00:00 2023-05-22 00:00:00 Telephone MelitonHussein [facility] BUILDING 1.2.840.114 350.1.13.10 4.2.7.2.686 [id number] [facility] 2023-05-22 00:00:00 2023-05-22 00:00:00 Telephone AshtynDoron [facility] BUILD[facility] 1.2.840.114 350.1.13.10 4.2.7.2.686 [id number] [facility] 2023-05-14 09:00:00 2023-05-14 09:20:00 Urgent Care Meseret Nogueira Unknown, Attending [facility] 1.2.840.114 350.1.13.10 4.2.7.2.686 [id number] [facility] 2023-05-14 09:00:00 2023-05-14 09:00:00 Outpatient R MESERET NOGUEIRA [facility] [id number] [facility] 2023-03-23 15:00:00 2023-03-23 15:00:00 Outpatient R CAITLYN ROSARIO CRAIG [facility] [id number] [facility] 2023-03-23 00:00:00 2023-03-23 00:00:00 Telephone Caitlyn Ros[facility] 1.840.114 350.1.13.10 4.2.7.2.686 [id number] [facility] 2023-03-22 08:40:00 2023-03-22 08:40:00 Outpatient R OBI-MARIE , DEVAUGHN OBI-MARIE , DEVAUGHN [facility] [id number] [facility] 2023-03-03 00:00:00 2023-03-03 00:00:00 Telephone AshtynDoron [facility] 1.840.114 350.1.13.10 4.2.7.2.686 [id number] [facility] 2023-02-21 00:00:00 2023-02-21 00:00:00 Telephone AshtynDoron [facility] 1.840.114 350.1.13.10 4.2.7.2.686 [id number] [facility] 2023-02-20 00:00:00 2023-02-20 00:00:00 Telephone Ashtyn Doron [facility] 1..840.114 350.1.13.10 4.2.7.2.686 [id number] [id number] [facility] 2023-02-03 00:00:00 2023-02-03 00:00:00 Orders Only Doctor Unassigned, [place] [facility] 1.284.114 350.1.13.10 4.2.7.2.686 [id number] [facility] 2023-02-02 00:00:00 2023-02-02 00:00:00 Telephone Ashtyn Doron [facility] 1.2.840.114 350.1.13.10 4.2.7.2.686 [id number] [facility] 2023-01-24 00:00:00 2023-01-24 00:00:00 Pre Visit Outreach Ashtyn Doron [facility] 1.2840.114 350.1.13.10 4.2.7.2.686 [id number] [facility] 2023-01-24 00:00:00 2023-01-24 00:00:00 Orders Only Doctor Unassigned, [place] [facility] 1.2840.114 350.1.13.10 4.2.7.2.686 [id number] [facility] 2023-01-20 15:20:00 2023-01-20 15:40:00 Imm/Inj Visit Nurse, Doron Hawley [facility] 1.2.840.114 350.1.13.10 4.2.7.2.686 [id number] [id number] [facility] 2023-01-20 15:20:00 2023-01-20 15:20:00 Outpatient R DORON ORTIZ OGECHUKWU [facility] [id number] [facility] 2023-01-20 00:00:00 2023-01-20 00:00:00 Telephone Ashtyn, Doron [facility] 1.2.840.114 350.1.13.10 4.2.7.2.686 [id number] [id number] [facility] 2023-01-19 00:00:00 2023-01-19 00:00:00 Telephone Doron Ortiz [facility] 1.2.840.114 350.1.13.10 4.2.7.2.686 [id number] [id number] [facility] 2022-12-28 13:00:00 2022-12-28 13:00:00 Outpatient R DORON OR[facility]Z [facility] [facility] [id number] [facility] 2022-12-23 00:00:00 2022-12-23 00:00:00 Telephone Doron Ortiz [facility] 1.2.840.114 350.1.13.10 4.2.7.2.686 [id number] [facility] 2022-12-21 11:15:00 2022-12-21 11:30:00 Consulting Group Analyst Visit 2, Adc Lab Doron Ortiz [facility] 1.2.840.114 350.1.13.10 4.2.7.2.686 [id number] [facility] 2022-12-21 10:30:00 2022-12-21 11:12:30 Outpatient R DORON ORTIZ OGECHUKWU [facility] [id number] [facility] 2022-12-21 10:30:00 2022-12-21 11:12:30 Office Visit Doron Ortiz [facility] 1.2.840.114 350.1.13.10 4.2.7.2.686 [id number] [facility] 2022-12-21 00:00:00 2022-12-21 00:00:00 Telephone Doron Ortiz [facility] 1.2.840.114 350.1.13.10 4.2.7.2.686 [id number] [facility] 2022-11-24 10:48:22 2022-11-24 23:59:00 Outpatient R JERRY IBARRA [facility] [id number] [facility] 2022-11-24 10:48:22 2022-11-24 23:59:00 Hospital Encounter Jerry Ibarra [facility] 1..840.114 350.1.13.10 4.2.7.2.686 [id number] [facility] 2022-11-11 16:30:00 2022-11-11 17:02:18 Outpatient R JERRY IBARRA [facility] [id number] [facility] 2022-11-11 16:30:00 2022-11-11 17:02:18 Office Visit Jerry Ibarra [facility] 1.2.840.114 350.1.13.10 4.2.7.2.686 [id number] [facility] 2022-10-21 09:00:00 2022-10-21 09:30:00 [facility] 1.2.840.114 350.1.13.10 4.2.7.2.686 [id number] [facility] 2022-10-21 09:00:00 2022-10-21 09:00:00 Outpatient R DORON ORTIZ OGECHUKWU [facility] [id number] [facility] 2022-10-16 11:24:00 2022-10-16 15:40:00 [facility] 1.2.840.114 350.1.13.10 4.2.7.2.686 [id number] [facility] 2022-10-16 10:40:00 2022-10-16 12:12:17 Outpatient R WILIANDEVTRACEY [facility] [id number] [facility] 2022-10-16 10:40:00 2022-10-16 12:12:17 Outpatient R WILIANDEVTRACEY [facility] ERT [id number] [facility] 2022-10-16 10:40:00 2022-10-16 11:00:00 Urgent Care Wilian Tracey Unknown, Attending [facility] 1.2.840.114 350.1.13.10 4.2.7.2.686 [id number] [facility] 2022-09-07 12:00:00 2022-09-07 12:59:31 Outpatient R DORON ORTIZ OGECHUKWU [facility] [id number] [facility] 2022-09-07 12:00:00 2022-09-07 12:59:31 Office Visit [facility] 1..840.114 350.1.13.10 4.2.7.2.686 [id number] [facility] 2022-09-07 00:00:00 2022-09-07 00:00:00 Orders Only Doctor Unassigned, [place] [facility] 1.2.840.114 350.1.13.10 4.2.7.2.686 [id number] [facility] 2022-07-22 09:30:00 2022-07-22 09:30:00 Outpatient JERRY LEY [facility] [id number] [facility] 2022-07-22 09:30:00 2022-07-22 09:30:00 Outpatient MAVERICK LEYIN [facility] [id number] [facility] 2022-07-20 10:30:00 2022-07-20 10:51:01 Outpatient R DORON ORTIZ OGECHUKWU [facility] [id number] [facility] 2022-07-20 10:30:00 2022-07-20 10:51:01 Office Visit Doron Ortiz [facility] 1.2840.114 350.1.13.10 4.2.7.2.686 [id number] [facility] 2022-07-20 09:30:00 2022-07-20 10:14:13 Office Visit [facility] 1.2.840.114 350.1.13.10 4.2.7.2.686 [id number] [facility] 2022-07-04 12:13:54 2022-07-04 23:59:00 Outpatient R UNKNOWN, ATTENDING [facility] [id number] [facility] 2022-07-04 12:13:54 2022-07-04 23:59:00 Hospital Encounter Unknown, Attending [facility] 1.2840.114 350.1.13.10 4.2.7.2.686 [id number] [facility] 2022-06-29 00:00:00 2022-06-29 00:00:00 Outpatient R ELEN PARKERENA [facility] [id number] [facility] 2022-04-22 00:00:00 2022-04-22 00:00:00 Telephone Tennille Garcia [facility] 1.2.840.114 350.1.13.10 4.2.7.2.686 [id number] [facility] 2022-04-22 00:00:00 2022-04-22 00:00:00 Patient Secure Msg Doctor Unassigned, [place] [facility] 1.2.840.114 350.1.13.10 4.2.7.2.686 [id number] [facility] 2022-04-21 10:30:00 2022-04-21 12:29:43 Outpatient R KATIE CORTEZ [facility] [id number] [facility] 2022-04-21 10:30:00 2022-04-21 10:45:00 Office Visit Katie Cortez [facility] 1.2.840.114 350.1.13.10 4.2.7.2.686 [id number] [facility] 2022-04-21 09:00:00 2022-04-21 09:00:00 Outpatient MARITZA WELLS [facility] [id number] [facility] 2022-04-21 09:00:00 2022-04-21 09:00:00 Outpatient MARITZA WELLS [facility] [id number] [facility] 2022-04-20 14:30:00 2022-04-20 15:33:13 Office Visit [facility] 1.2.840.114 350.1.13.10 4.2.7.2.686 [id number] [facility] 2022-04-20 14:30:00 2022-04-20 15:33:13 Outpatient R DORON ORTIZ OGECHUKWU [facility] [id number] [facility] 2022-04-15 09:37:22 2022-04-15 23:59:00 Outpatient TENNILLE ESCALONA [facility] [id number] [facility] 2022-04-15 12:20:00 2022-04-15 12:40:00 Urgent Care Mason Coronado, Attending [facility] 1.2.840.114 350.1.13.10 4.2.7.2.686 [id number] [facility] 2022-03-16 10:00:00 2022-03-16 10:00:00 Outpatient R TENNILLE GARCIA [facility] [id number] [facility] 2022-03-07 09:15:00 2022-03-07 23:59:00 Hospital Encounter Doron Ortiz [facility] 1.2.840.114 350.1.13.10 4.2.7.2.686 [id number] [facility] 2022-03-07 08:30:00 2022-03-07 09:03:55 Office Visit Doron Ortiz [facility] 1..840.114 350.1.13.10 4.2.7.2.686 [id number] [facility] 2022-03-07 08:30:00 2022-03-07 09:03:55 Outpatient R DORON ORTIZ OGECHUKWU [facility] [id number] [facility] 2022-03-07 00:00:00 2022-03-07 00:00:00 Orders Only Doctor Unassigned, [place] [facility] 1.2.840.114 350.1.13.10 4.2.7.2.686 [id number] [facility] 2022-03-02 08:00:00 2022-03-02 08:38:49 Outpatient R TENNILLE GARCIA [facility] [id number] [facility] 2022-03-02 08:00:00 2022-03-02 08:38:49 Office Visit Tennille Garcia [facility] NAL [facility]ILD[facility] 1.114 350.1.13.10 4.2.7.2.686 [id number] [facility] 2022-02-28 08:00:00 2022-02-28 08:00:00 Outpatient TENNILLE ESCALONA [facility] [id number] [facility] 2022-02-23 00:00:00 2022-02-23 00:00:00 Patient Secure Msg Doctor Unassigned, [place] [facility] 1.114 350.1.13.10 4.2.7.2.686 [id number] [facility] 2022-02-23 00:00:00 2022-02-23 00:00:00 Transition of Care Vlad Huddleston [facility] 1.114 350.1.13.10 4.2.7.2.686 [id number] [facility] 2022-02-20 12:32:00 2022-02-22 17:50:00 Inpatient X VENECIA CALLOWAY [facility] STEVE [id number] [facility] 2022-02-20 12:32:00 2022-02-22 17:50:00 Hospital Encounter Rene Kay David [facility] 1.114 350.1.13.10 4.2.7.2.686 [id number] [facility] 2022-02-20 10:00:00 2022-02-20 12:05:55 Outpatient R TRACEY CEDENO [facility] [id number] [facility] 2022-02-20 10:00:00 2022-02-20 12:05:55 Urgent Care Tracey Cedeno Unknown, Attending [facility] 1.84.114 350.1.13.10 4.2.7.2.686 [id number] [facility] 2022-02-08 10:40:00 2022-02-08 11:27:06 Outpatient R MESERET NOGUEIRA [facility] [id number] [facility] 2022-02-08 10:40:00 2022-02-08 11:00:00 Urgent Care Meseret Nogueira Unknown, Attending [facility] 1.840.114 350.1.13.10 4.2.7.2.686 [id number] [facility] 2021-08-07 10:20:00 2021-08-07 10:53:57 Outpatient R MARIA DOLORES GAXIOLA [facility] [id number] [facility] 2021-08-07 10:20:00 2021-08-07 10:53:57 Urgent Care Amelia Garcia Kimberly COUNTS INCLUDE 234 BEDS AT THE [facility] 1.840.114 350.1.13.10 4.2.7.2.686 [id number] [facility] 2021-08-05 20:42:00 2021-08-05 20:56:00 Emergency Kevin Goode [facility] 1..840.114 350.1.13.10 4.2.7.2.686 [id number] [facility] 2021-08-05 19:45:00 2021-08-05 20:06:37 Outpatient R MARIA DOLORES GAXIOLA [facility] ERT [id number] [facility] 2021-08-05 19:45:00 2021-08-05 20:05:00 Nurse Visit Nurse, Zuhair [facility]cedo [facility] 1..840.114 350.1.13.10 4.2.7.2.686 [id number] [facility] 2021-08-05 19:45:00 2021-08-05 19:45:00 Outpatient R MARIA DOLORES GAXIOLA [facility] [id number] [facility] 2021-08-05 19:40:00 2021-08-05 19:40:00 Outpatient R MARIA DOLORES GAXIOLA [facility] [id number] [facility] 2021-08-05 00:00:00 2021-08-05 00:00:00 Orders Only Doctor Unassigned, [place] [facility] 1..840.114 350.1.13.10 4.2.7.2.686 [id number] [facility] 2021-07-27 08:30:00 2021-07-27 08:30:00 Outpatient MINESH DE LA FUENTE [facility] [id number] [facility] 2021-07-27 08:30:00 2021-07-27 08:30:00 [facility] [id number] [facility] 2021-07-26 12:00:00 2021-07-26 12:30:00 [facility] 1..840.114 350.1.13.10 4.2.7.2.686 [id number] [facility] 2021-07-26 12:00:00 2021-07-26 12:00:00 Outpatient Edy PARKER [facility] [id number] [facility] 2021-07-26 12:00:00 2021-07-26 12:00:00 Outpatient Edy PARKER [facility] [id number] [facility] 2021-04-20 08:00:00 2021-04-20 09:08:36 Outpatient MARITZA WELLS [facility] [id number] [facility] 2021-04-20 08:00:00 2021-04-20 09:08:36 Office Visit Maritza Bear [facility] 1.2.840.114 350.1.13.10 4.2.7.2.686 [id number] [facility] 2021-04-20 08:00:00 2021-04-20 09:08:36 Outpatient R MARITZA BEAR [facility] [id number] [facility] 2021-02-23 00:00:00 2021-02-23 00:00:00 Case Management Maritza Bear [facility] 1.2.840.114 350.1.13.10 4.2.7.2.686 [id number] [facility] 2021-02-09 13:20:00 2021-02-09 13:20:00 Outpatient MINESH DE LA FUENTE [facility] [id number] [facility] 2021-02-09 13:11:36 2021-02-09 13:11:46 Imm/Inj Visit Nurse, Pepito Pob Immunizatio Minesh Steward [facility] Building 1.2.840.114 350.1.13.10 4.2.7.2.686 [id number] [facility] 2021-01-28 08:11:17 2021-01-28 08:26:17 Consulting Group Analyst Visit 2, Adc Lab Maritza Bear [facility] Building 1.2.840.114 350.1.13.10 4.2.7.2.686 [id number] [facility] 2021-01-28 08:00:00 2021-01-28 08:00:00 Outpatient MARITZA WELLS [facility] [id number] [facility] 2020-11-24 16:00:00 2020-11-24 16:00:00 Outpatient KATIE REARDON [facility] [id number] [facility] 2020-08-20 10:20:00 2020-08-20 10:20:00 Outpatient R [facility] [id number] [facility] 2020-06-30 17:40:00 2020-06-30 17:40:00 Outpatient R LIAM ROSS [facility] [id number] [facility] 2020-06-05 00:00:00 2020-06-05 00:00:00 Outpatient R JERRY IBARRA [facility] [id number] [facility] 2020-05-29 10:30:00 2020-05-29 10:30:00 Outpatient R JERRY IBARRA [facility] [id number] [facility] 2020-05-19 09:50:00 2020-05-19 09:50:00 Outpatient R LILLI HANSON [facility] [id number] [facility] 2020-04-21 08:40:00 2020-04-21 08:40:00 Outpatient R LILLI HANSON [facility] [id number] [facility] 2020-04-20 08:00:00 2020-04-20 08:00:00 Outpatient R MARITZA BEAR [facility] [id number] [facility] 2020-01-17 09:15:00 2020-01-17 09:15:00 Outpatient MARITZA WELLS [facility] [id number] [facility] 2019-06-07 00:00:00 2019-06-07 00:00:00 Orders Only Doctor Unassigned, [place] [facility] .840.114 350.1.13.10 4.2.7.2.686 [id number] [facility] 2019-06-07 00:00:00 2019-06-07 00:00:00 Telephone Jerry Ibarra [facility] 1..840.114 350.1.13.10 4.2.7.2.686 [id number] [facility] 2019-05-30 07:58:23 2019-05-30 23:59:00 Outpatient Edy IBARRAJERRY [facility] [id number] [facility] 2019-05-30 07:58:00 2019-05-30 23:59:00 Hospital Encounter Jerry Ibarra [facility] 1.2.840.114 350.1.13.10 4.2.7.2.686 [id number] [facility] 2019-05-24 09:00:00 2019-05-24 10:12:14 Outpatient JERRY LEY [facility] [id number] [facility] 2019-05-24 08:51:18 2019-05-24 10:12:14 [facility] 1.2.840.114 350.1.13.10 4.2.7.2.686 [id number] [facility] 2019-04-18 07:00:00 2019-04-18 08:01:09 Outpatient MARITZA WELLS [facility] [id number] [facility] 2017-07-04 03:30:00 2017-07-04 03:30:00 Outpatient Cedricku_P [facility] [id number] [facility] Results Test Description Test Time Test Comments Results Resul t Comments Source XR HIPS 2 VW LEFT 2024-01-09 04:48:05 XR HIPS 2 VW LEFT HISTORY: ?Postop Total Hip ? COMPARISON: 12/19/2023 FINDINGS: Intact arthroplasty. Alignment is near-anatomic. No acute fracture orloosening. Soft tissue edema and emphysema, commensurate with postoperativestat e. [facility] [id number] 13:06:17* Test Item Value Reference Range Interpretation Comme nts WBC (test code = 6690-2) 6.99 4.30-11.10 RBC (test code = 789-8) 4.47 3.93-5.25 HGB (test code = 718-7) 13.3 g/dL 11.6-15.0 HCT (test code = 4544-3) 40.4 % 35.7-45.2 MCV (test code = 787-2) 90.4 fL 80.6-95.5 MCH (test code = 785-6) 29.8 pg 25.9-32.8 MCHC (test code = 786-4) 32.9 g/dL 31.6-35.1 RDW-SD (test code = 73779-1) 43.2 fL 39.0-49.9 RDW-CV (test code = 788-0) 13.1 % 12.0-15.5 PLT (test code = 777-3) 286 166-358 MPV (test code = 18981-3) 9.4 fL 9.5-12.9 L NRBC/100 WBC (test code = 9798046289) 0.0 0.0-10.0 NRBC x10^3 (test code = 9708025730) See_Comment [Automated messa ge] The system which generated this result transmitted reference range: 10*3/?L. The reference range was not used to interpret this result as normal/abnormal. GRAN MAT (NEUT) % (test code = 770-8) 71.3 % IMM GRAN % (test code = 9333399993) 0.30 % LYMPH % (test code = 736-9) 14.4 % MONO % (test code = 5905-5) 11.0 % EOS % (test code = 713-8) 2.3 % BASO % (test code = 706-2) 0.7 % GRAN MAT x10^3(ANC) (test code = 8601923368) 4.98 10*3/uL 1.88-7.09 IMM GRAN x10^3 (test code = 5959327379) 0.00-0.06 LYMPH x10^3 (test code = 731-0) 1.01 10*3/uL 1.32-3.29 L MONO x10^3 (test code = 742-7) 0.77 10*3/uL 0.33-0.92 EOS x10^3 (test code = 711-2) 0.16 10*3/uL 0.03-0.39 BASO x10^3 (test code = 704-7) 0.05 10*3/uL 0.01-0.07 Lab Interpretation (test code = 25066-5) [facility] This is a pre-surgical type and screen. ONCE [id number] 13:04:00* Test Item Value Reference Range Interpretation Comme nts ABO & RH (test code = 20) O POSITIVE IAT (test code = 1185) Negative [facility] This is a pre-surgical type and screen. ONCE [id number] 13:04:00* Test Item Value Reference Range Interpretation Comme nts ABO & RH (test code = 20) O POSITIVE IAT (test code = 1185) Negative [facility] VW [id number] 22:10:11EXAM: XR HIPS 3 VW LEFT HISTORY: LT THR COMPARISON: Left hip radiographs, 05/25/2023. FINDINGS: Radiographs of the left hip demonstrate no acute fracture or dislocation.There is progressive severe bilateral hip joint osteoarthrosis, rightgreater than left. Lower lumbar degenerative disc disease. Pubic symphysisdegenerative changes are noted. Osseous demineralization is noted. [facility] (NON-REPORTABLE)2023-09-18 15:12:04 These images do not require a Radiology diagnostic report.[facility] TIME OR (NON-REPORTABLE)2023-09-18 15:12:04These images do not require a Radiology diagnostic report.[facility] 2 VW [id number] 15:23:53XR HIPS 2 VW LEFT and AP pelvis. INDICATION: hip pain ? COMPARISON: 11/24/20 FINDINGS:No acute fracture or dislocation.Advanced degenerative changes of bilateral hip joints with primarily axialmigration of the femoral heads, subchondral sclerosis and osteophytosis.Additional degenerative changes at the bilateral sacroiliac joints andpubic symphysis. [facility] HospitalTROP[facility] [id number] 19:50:23* Test Item Value Reference Range Interpretation Comme nts TROPONIN I (test code = 7961691364) 0.034 ng/mL <=0.034 MADAY (test code = MADAY) Reference (Normal) Range (defined by the 99th percentile reference limit): <= 0.034 ng/mL Note: Cardiac troponin begins to rise 3-4 hours after the onset of ischemia. Repeat in 4-6 hours if the sample was drawn within 3-4 hours of the onset of the symptom and found normal. Diagnosis of myocardial injury is made with acute changes in cTn concentrations with at least one serial sample above the 99th percentile upper reference limit (URL), taken together with the patient's clinical presentation. Biotin has been reported to cause a negative bias, interpret results relative to patient's use of biotin. Lab Interpretation (test code = 58080-1) Normal [facility] [id number] 17:30:40* Test Item Value Reference Range Interpretation Comme nts TROPONIN I (test code = 6003050539) 0.035 ng/mL <=0.034 H MADAY (test code = MADAY) Reference (Normal) Range (defined by the 99th percentile reference limit): <= 0.034 ng/mL Note: Cardiac troponin begins to rise 3-4 hours after the onset of ischemia. Repeat in 4-6 hours if the sample was drawn within 3-4 hours of the onset of the symptom and found normal. Diagnosis of myocardial injury is made with acute changes in cTn concentrations with at least one serial sample above the 99th percentile upper reference limit (URL), taken together with the patient's clinical presentation. Biotin has been reported to cause a negative bias, interpret results relative to patient's use of biotin. Lab Interpretation (test code = 29003-2) [facility] [id number] 17:27:39* Test Item Value Reference Range Interpretation Comme nts NT-proBNP (test code = 7308918185) 126 pg/mL <=450 MADAY (test code = MADAY) Biotin has been reported to cause a negative bias, interpret results relative to patient's use of biotin. Lab Interpretation (test code = 02529-1) [facility] [id number] 17:26:58* Test Item Value Reference Range Interpretation Comme nts APTT Patient (test code = 3173-2) 28 See_Comment [Automated message] The system which generated this result transmitted reference range: 23 - 38 Seconds. The reference range was not used to interpret this result as normal/abnormal. MADAY (test code = MADAY) The [facility] patient population mean normal value for aPTT is 30 seconds. Lab Interpretation (test code = 93364-7) [facility] / [id number] 17:24:57* Test Item Value Reference Range Interpretation Comme nts PROTIME PATIENT (test code = 5964-2) 12.8 See_Comment [Automated messa ge] The system which generated this result transmitted reference range: 12.0 - 14.7 Seconds. The reference range was not used to interpret this result as normal/abnormal. INR (test code = 6301-6) 1.0 Normal INR <1.1; Warfarin Therapeutic range 2.0 to 3.0 or 2.5 to 3.5, depending upon the indications. Lab Interpretation (test code = 78631-7) [facility]:19:19* Test Item Value Reference Range Interpretation Comme nts MAGNESIUM (test code = 9508536999) 2.0 mg/dL 1.7-2.4 Lab Interpretation (test cod e = 53133-3) [facility] (14508)2022-10-16 17:18:59* Test Item Value Reference Range Interpretation Comme nts NA (test code = 8858015335) 138 mmol/L 135-145 K (test code = 2233070918) 4.1 mmol/L 3.5-5.0 CL (test code = 1930464719) 102 mmol/L 98-108 CO2 TOTAL (test code = 9749431468) 27 mmol/L 23-31 AGAP (test code = 9720225742) 9 2-16 BUN (test code = 9903854277) 23 mg/dL 7-23 GLUCOSE (test code = 5393740618) 159 mg/dL 70-110 H CREATININE (test code = 0289266425) 0.65 mg/dL 0.50-1.04 TOTAL BILI (test code = 6902954587) 0.6 mg/dL 0.1-1.1 CALCIUM (test code = 1587779951) 9.5 mg/dL 8.6-10.6 T PROTEIN (test code = 4997749285) 6.8 g/dL 6.3-8.2 ALBUMIN (test code = 1650331398) 4.2 g/dL 3.5-5.0 ALK PHOS (test code = 2315751432) 83 U/L 34-122 ALTv (test code = 1742-6) 28 U/L 5-35 AST(SGOT) (test code = 9519129403) 33 U/L 13-40 eGFR (test code = 7699523107) 87.0 mL/min/1.73m2 MADAY (test code = MADAY) Association of Glomerular Filtration Rate (GFR) and Staging of Kidney Disease* + --+ --+ ------+| GFR (mL/min/1.73 m2) ?| With Kidney Damage ?| ?Without Kidney Damage+ --------+ --------+ +| ?>90 ?| ?Stage one ?| ? Normal ?+ ---+ ---+ -------+| ?60-89 ?| ?Stage two ?| ? Decreased GFR ? + --+ --+ ------+| ?30-59 ?| ?Stage three ?| ? Stage three ? + --+ --+ ------+| ?15-29 ?| ?Stage four ? | ? Stage four ?+ ---+ ---+ -------+| ?<15 (or dialysis) ? ?| ?Stage five ? | ? Stage five ?+ ---+ ---+ -------+ *Each stage assumes the associated GFR level has been in effect for at least three months. ?Stages 1 to 5, with or without kidney disease, indicate chronic kidney disease. Notes: Determination of stages one and two (with eGFR >59mL/min/1.73 m2) requires estimation of kidney damage for at least three months as defined by structural or functional abnormalities of the kidney, manifested by either:Pathological abnormalities or Markers of kidney damage (including abnormalities in the composition of the blood or urine or abnormalities in imaging tests). Lab Interpretation (test code = 76758-7) Abnormal [facility] WITH [id number] 17:06:53* Test Item Value Reference Range Interpretation Comme nts WBC (test code = 6690-2) 7.26 See_Comment [Automated messa ge] The system which generated this result transmitted reference range: 4.30 - 11.10 10*3/?L. The reference range was not used to interpret this result as normal/abnormal. RBC (test code = 789-8) 4.58 See_Comment [Automated messa ge] The system which generated this result transmitted reference range: 3.93 - 5.25 10*6/?L. The reference range was not used to interpret this result as normal/abnormal. HGB (test code = 718-7) 14.2 g/dL 11.6-15.0 HCT (test code = 4544-3) 41.9 % 35.7-45.2 MCV (test code = 787-2) 91.5 fL 80.6-95.5 MCH (test code = 785-6) 31.0 pg 25.9-32.8 MCHC (test code = 786-4) 33.9 g/dL 31.6-35.1 RDW-SD (test code = 01097-4) 49.8 fL 39.0-49.9 RDW-CV (test code = 788-0) 14.9 % 12.0-15.5 PLT (test code = 777-3) 240 See_Comment [Automated Anexona ge] The system which generated this result transmitted reference range: 166 - 358 10*3/?L. The reference range was not used to interpret this result as normal/abnormal. MPV (test code = 63048-3) 10.2 fL 9.5-12.9 NRBC/100 WBC (test code = 7947060055) 0.0 See_Comment [Automated [employer] ssage] The system which generated this result transmitted reference range: 0.0 - 10.0 /100 WBCs. The reference range was not used to interpret this result as normal/abnormal. NRBC x10^3 (test code = 6624136072) See_Comment [Automated Anexona ge] The system which generated this result transmitted reference range: 10*3/?L. The reference range was not used to interpret this result as normal/abnormal. GRAN MAT (NEUT) % (test code = 770-8) 74.2 % IMM GRAN % (test code = 4315172636) 0.10 % LYMPH % (test code = 736-9) 15.6 % MONO % (test code = 5905-5) 7.6 % EOS % (test code = 713-8) 1.8 % BASO % (test code = 706-2) 0.7 % GRAN MAT x10^3(ANC) (test code = 9915664423) 5.39 10*3/uL 1.88-7.09 IMM GRAN x10^3 (test code = 6187493799) 0.00-0.06 LYMPH x10^3 (test code = 731-0) 1.13 10*3/uL 1.32-3.29 L MONO x10^3 (test code = 742-7) 0.55 10*3/uL 0.33-0.92 EOS x10^3 (test code = 711-2) 0.13 10*3/uL 0.03-0.39 BASO x10^3 (test code = 704-7) 0.05 10*3/uL 0.01-0.07 Lab Interpretation (test code = 11937-0) [facility]normal [facility]2022-02-21 22:50:22* Test Item Value Reference Range Interpretation Comme nts Height (test code = 1483140335) in Weight (test code = 1449570601) lbs Systolic BP (test code = 1137593102) mmHg Diastolic BP (test code = 5136748266) mmHg Heart Rate (test code = 9590011894) bpm BSA (test code = 8204063870) 1.37 m2 Ao root diam (test code = 1359363165) 3.50 cm Aortic root (test code = 3951634339) 3.5 cm Ao root annulus (test code = 7742174336) 3.5 cm LVOT diameter (test code = 2294305279) 1.86 cm LVOT area (test code = 3021171350) 2.70 cm2 LVIDD (test code = 5599575722) 4.00 cm Left Ventricular End Diastolic Volume by Teichholz Method (test code = 3031156) 71.7 mL IVS (test code = 4916455055) 0.98 cm Interventricular Septum Diastolic Thickness by 2D (test code = 4518098) 0.98 cm LVPWD (test code = 5111649279) 0.98 cm PW (test code = 8473606732) 0.98 cm 0.6-1.1 EF(Teich) (test code = 2541099011) 61.40 % LVIDS (test code = 3307146727) 2.70 cm Left Ventricular End Systolic Volume by Teichholz Method (test code = 3483162) 27.7 mL FS (test code = 7243208958) 33 % EF - 2D (test code = 89709217) 61.40 % LA size (test code = 1609577906) 2.06 cm TR Peak Frank (test code = 4695615203) 246.0 cm/s Triscuspid Valve Regurgitation Peak Gradient (test code = 4362542449) mmHg LAV(MOD-sp4) (test code = 8776515055) 32.80 mL E wave decelartion time (test code = 8061743362) 0.19 s MV stenosis pressure 1/2 time (test code = 9101961811) 58.0 ms MV Peak E Frank (test code = 9888973157) 70.6 cm/s MV Peak A Frank (test code = 8946980762) 53.6 cm/s E/A ratio (test code = 2743758966) ratio MR max PG (test code = 0961504899) 125.60 mm[Hg] MR max frank (test code = 5723186638) 560.00 cm/s Mr max frank (test code = 0354102204) 560.0 m/s MV Prop V (test code = 7456306680) 73.30 cm/s MV E/e' septal (test code = 8806558629) 9.9 cm/s Tapse (test code = 4286305380) 2.10 cm LVOT stroke volume (test code = 6311595385) 46.30 cm3 LVOT peak frank (test code = 1768631026) 91.7 cm/s LVOT mn grad (test code = 8009362724) mmHg AV LVOT peak gradient (test code = 9733570823) mmHg LVOT peak VTI (test code = 3848027353) 17.1 cm LV V1 mean (test code = 2188827585) 65.70 cm/s Aortic valve mean velocity (test code = 7343847716) 112.3 cm/s Ao peak frank (test code = 9618673629) 159.2 cm/s Ao VTI (test code = 5957914977) 27.3 cm AV area by cont VTI (test code = 5230278807) 1.7 cm2 AV area peak frank (test code = 5656231166) 1.6 cm2 Ao max PG (test code = 4573773097) 10.10 mm[Hg] AV peak gradient (test code = 2182243123) mmHg AV valve area (test code = 8487437494) 1.70 cm2 AV mean gradient (test code = 0712815121) mmHg AV regurgitation pressure 1/2 time (test code = 0096009276) 640.5 ms AI dec slope (test code = 5196177757) 201.20 cm/s2 AI max frank (test code = 5708384501) 439.90 cm/s AI max PG (test code = 1784414468) 77.40 mm[Hg] Radiology Study observation (narrative) (test code = 35501-6) MADAY (test code = MADAY) ?Left?Ventricle: Left ventricle size is normal. Mild septal thickening. Normal wall motion. Normal systolic function with a visually estimated EF of 60 - 65%. ?Right?Ventricle: Right ventricle size is normal. Normal systolic function. ?Mitral?Valve: Mild transvalvular regurgitation. ?Tricuspid?Valve: Right ventricular systolic pressure is normal. ?RA pressure is 0-5 mmHg. ?Aorta: Mildly enlarged aortic root (3.8 cm). ?Aortic?Valve: Mild transvalvular regurgitation. Left VentricleLeft ventricle size is normal. Mild septal thickening. Normal wall motion. Normal systolic function with a visually estimated EF of 60 - 65%. Indeterminate diastolic function.Right VentricleRight ventricle size is normal. Normal systolic function.Left AtriumLeft atrium size is normal.Right AtriumRight atrium size is normal.Mitral ValveMitral valve structure is normal. Mild transvalvular regurgitation.Tricusp id ValveTricuspid valve structure is normal. Trace transvalvular regurgitation. Right ventricular systolic pressure is normal. RA pressure is 0-5 mmHg.Aortic ValveTricuspid. Mild transvalvular regurgitation.Pulmoni c ValvePulmonic valve is normal in structure and function.Ascending AortaMildly enlarged aortic root (3.8 cm).PericardiumThe pericardium is normal.Study DetailsStudy quality was adequate. A complete echocardiogram was performed using 2D, color flow Doppler and spectral Doppler. [facility] (A1C)2022-02-21 02:33:13* Test Item Value Reference Range Interpretation Comme nts HGB A1C (test code = 4548-4) 5.8 % 4.0-5.7 H MADAY (test code = MADAY) Reference RangesNormal: <5.7%Prediabetes: 5.7 - 6.4%Diabetes: > 6.5% Lab Interpretation (test code = 97888-7) Abnormal [facility]TR[facility] [id number] 19:32:09* Test Item Value Reference Range Interpretation Comments TROPONIN I (test code = 9209277528) 0.057 ng/mL See_Comment H [Automated message] The system which generated this result transmitted reference range: <=0.034. The reference range was not used to interpret this result as normal/abnormal. MADAY (test code = MADAY) Reference (Normal) Range (defined by the 99th percentile reference limit): <= 0.034 ng/mL Note: Cardiac troponin begins to rise 3-4 hours after the onset of ischemia. Repeat in 4-6 hours if the sample was drawn within 3-4 hours of the onset of the symptom and found normal. Diagnosis of myocardial injury is made with acute changes in cTn concentrations with at least one serial sample above the 99th percentile upper reference limit (URL), taken together with the patient's clinical presentation. Biotin has been reported to cause a negative bias, interpret results relative to patient's use of biotin. Lab Interpretation (test code = 63728-0) [facility]normal [facility] (50241)2022-02-20 19:20:46* Test Item Value Reference Range Interpretation Comme nts NA (test code = 1128575433) 138 mmol/L 135-145 K (test code = 0142248968) 4.8 mmol/L 3.5-5.0 CL (test code = 6208854343) 104 mmol/L 98-108 CO2 TOTAL (test code = 8511372717) 28 mmol/L 23-31 AGAP (test code = 5756256368) 2-16 BUN (test code = 1417058123) 23 mg/dL 7-23 GLUCOSE (test code = 6123848605) 65 mg/dL 70-110 L CREATININE (test code = 0754162219) 0.67 mg/dL 0.50-1.04 TOTAL BILI (test code = 8852967835) 0.5 mg/dL 0.1-1.1 CALCIUM (test code = 4802248371) 9.2 mg/dL 8.6-10.6 T PROTEIN (test code = 6232238585) 6.4 g/dL 6.3-8.2 ALBUMIN (test code = 0198217345) 4.1 g/dL 3.5-5.0 ALK PHOS (test code = 4013794375) 67 U/L 34-122 ALTv (test code = 1742-6) 33 U/L 5-35 AST(SGOT) (test code = 8808403827) 45 U/L 13-40 H eGFR (test code = 0833134173) mL/min/1.73m2 MADAY (test code = MADAY) Association of Glomerular Filtration Rate (GFR) and Staging of Kidney Disease* + --+ --+ ------+| GFR (mL/min/1.73 m2) ?| With Kidney Damage ?| ?Without Kidney Damage+ --------+ --------+ +| ?>90 ?| ?Stage one ?| ? Normal ?+ ---+ ---+ -------+| ?60-89 ?| ?Stage two ?| ? Decreased GFR ? + --+ --+ ------+| ?30-59 ?| ?Stage three ?| ? Stage three ? + --+ --+ ------+| ?15-29 ?| ?Stage four ? | ? Stage four ?+ ---+ ---+ -------+| ?<15 (or dialysis) ? ?| ?Stage five ? | ? Stage five ?+ ---+ ---+ -------+ *Each stage assumes the associated GFR level has been in effect for at least three months. ?Stages 1 to 5, with or without kidney disease, indicate chronic kidney disease. Notes: Determination of stages one and two (with eGFR >59mL/min/1.73 m2) requires estimation of kidney damage for at least three months as defined by structural or functional abnormalities of the kidney, manifested by either:Pathological abnormalities or Markers of kidney damage (including abnormalities in the composition of the blood or urine or abnormalities in imaging tests). Lab Interpretation (test code = 72029-1) Abnormal [facility] HospitalPOGA SARS-COV-2 ANTIGEN (BINAX NOW)2022-02-20 19:18:00* Test Item Value Reference Range Interpretation Comme nts POCT SARS-COV-2 ANTIGEN (radha t code = 78559-4) Positive Not Detected A On board controls acceptable with C Line (test code = 3574) Yes Lab Interpretation (test cod e = 18663-0) Abnormal [facility] WITH [id number] 19:07:24* Test Item Value Reference Range Interpretation Comme nts WBC (test code = 6690-2) See_Comment [Automated [employer] ge] The system which generated this result transmitted reference range: 4.30 - 11.10 10*3/?L. The reference range was not used to interpret this result as normal/abnormal. RBC (test code = 789-8) See_Comment [Automated messa ge] The system which generated this result transmitted reference range: 3.93 - 5.25 10*6/?L. The reference range was not used to interpret this result as normal/abnormal. HGB (test code = 718-7) 13.6 g/dL 11.6-15.0 HCT (test code = 4544-3) 40.7 % 35.7-45.2 MCV (test code = 787-2) 91.5 fL 80.6-95.5 MCH (test code = 785-6) 30.6 pg 25.9-32.8 MCHC (test code = 786-4) 33.4 g/dL 31.6-35.1 RDW-SD (test code = 90629-3) 45.7 fL 39.0-49.9 RDW-CV (test code = 788-0) 13.4 % 12.0-15.5 PLT (test code = 777-3) See_Comment [Automated Anex[employer] ge] The system which generated this result transmitted reference range: 166 - 358 10*3/?L. The reference range was not used to interpret this result as normal/abnormal. MPV (test code = 74291-2) 10.8 fL 9.5-12.9 NRBC/100 WBC (test code = 3087019161) See_Comment [Automated me ssage] The system which generated this result transmitted reference range: 0.0 - 10.0 /100 WBCs. The reference range was not used to interpret this result as normal/abnormal. NRBC x10^3 (test code = 1125331493) See_Comment [Automated messa ge] The system which generated this result transmitted reference range: 10*3/?L. The reference range was not used to interpret this result as normal/abnormal. GRAN MAT (NEUT) % (test code = 770-8) 61.2 % IMM GRAN % (test code = 1003250069) 0.20 % LYMPH % (test code = 736-9) 18.2 % MONO % (test code = 5905-5) 18.7 % EOS % (test code = 713-8) 1.2 % BASO % (test code = 706-2) 0.5 % GRAN MAT x10^3(ANC) (test code = 1968274981) 3.70 10*3/uL 1.88-7.09 IMM GRAN x10^3 (test code = 1332594840) 0.00-0.06 LYMPH x10^3 (test code = 731-0) 1.10 10*3/uL 1.32-3.29 L MONO x10^3 (test code = 742-7) 1.13 10*3/uL 0.33-0.92 H EOS x10^3 (test code = 711-2) 0.07 10*3/uL 0.03-0.39 BASO x10^3 (test code = 704-7) 0.03 10*3/uL 0.01-0.07 Lab Interpretation (test code = 98568-5) Abnormal [facility] MOLECULAR [id number] 17:51:19* Test Item Value Reference Range Interpretation Comme nts POCT Molecular Strep (test c ode = 48951-0) Negative Negative Lab Interpretation (test cod e = 79854-4) Normal [facility] MOLECULAR [id number] 17:51:19* Test Item Value Reference Range Interpretation Comme nts POCT Molecular Strep (test c ode = 59262-1) Negative Negative Lab Interpretation (test cod e = 94409-1) Normal [facility] MOLECULAR [id number] 17:39:16* Test Item Value Reference Range Interpretation Comme nts POCT Molecular FluA (test co de = 22121-4) Negative Negative POCT Molecular FluB (test co de = 65467-5) Negative Negative Lab Interpretation (test cod e = 77887-2) Normal [facility] MOLECULAR [id number] 17:39:16* Test Item Value Reference Range Interpretation Comme nts POCT Molecular FluA (test co de = 41564-1) Negative Negative POCT Molecular FluB (test co de = 72405-0) Negative Negative Lab Interpretation (test cod e = 06096-1) Normal [facility] Consult Notes Date/Time Note Provider Source 2024-01-08 12:28:33 Associated Order(s): CONSULT WIND TUNNEL TECHNICIAN-ADULT CM provided patient with [facility] and set up home health with [facility]. Blaise Luna RN, BSN [facility] Communications Strategist [phone] Blaise Luna RN [facility] Notes Date/Time Note Provider Source 2024-01-31 11:10:49 Gregoria with [facility] [phone] is with patient that has had hip replacement surgery and she has ran out of her hydrocodone pain medicine and is wanting to know if patient can take Tylenol 500mg until her medicine is refilled? Karin Gomez [facility] 2024-01-09 16:13:51 Spoke with patients daughter, Alex, Patient post day 1 after hip replacement, she stated that the medication HYDROcodone-acetaminophen 5-325 mg tablet was called into [facility]. When she went to pick it up she was told that they did not have the medication in stock. Daughter called [facility] [place] they too did not have any stock. Daughter also called [facility] in [place], also none in stock. She then called [facility] in [place] they had stock available. She is asking if we can send the RX to [facility]. Due to this being a controlled substance an MD would have to send it. Dr Rosario has already left for the day. Attempted to contact via Cell phone, message left. Alex was notified of the above information and informed that it could be tomorrow before new Rx is called in. She voiced understanding. Andria Vora RN [facility] 2024-01-09 11:57:09 Pt daughter is requesting RX to be sent to [facility] in [place]. DOS:01/08/2024 -Total Knee Replacement HYDROcodone-acetaminophen 5-325 mg tablet . Maritza Santana [facility] 2024-01-08 10:25:56 Summary: Family Surgical Update Patient's daughter, called on cell phone to provide surgery status update. No questions at this time. Tracey Gupta RN 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 Item Serial No. Messaging Architect Lot No. LRB No. Used Action SCREW BONE TRLG 30MM SLF TAP 6.5MM ACTB CORTCL STERIL #[id number] - SN/A SCREW SCREW BONE TRLG 30MM SLF TAP 6.5MM ACTB CORTCL STERIL #[id number] N/A [employer] [id number] Left 1 Implanted SHELL ACTB G7 PPS 54MM LIMIT HOLE CLR CD F HMSPHR OFFSET HIP #[id number] - SN/A Joint Prosthesis SHELL ACTB G7 PPS 54MM LIMIT HOLE CLR CD F HMSPHR OFFSET HIP #[id number] N/A [employer] [id number] Left 1 Implanted SCREW BONE TRLG 20MM SLF TAP 6.5MM HIP ACTB STERIL #[id number] - SN/A SCREW SCREW BONE TRLG 20MM SLF TAP 6.5MM HIP ACTB STERIL #[id number] N/A [employer] [id number] Left 1 Implanted LINER ACTB 40MM F LNGVT G7 STERIL LF LUMEN HIP #[id number] - SN/A Joint Prosthesis LINER ACTB 40MM F LNGVT G7 STERIL LF LUMEN HIP #[id number] N/A [employer] [id number] Left 1 Implanted STEM FMRL 107.5MM 11MM 133D STD OFFSET TAP PRS FIT TI PPS #[id number] - SN/A Joint Prosthesis STEM FMRL 107.5MM 11MM 133D STD OFFSET TAP PRS FIT TI PPS #[id number] N/A [employer] [id number] Left 1 Implanted HEAD FMRL 40MM -3MM OFFSET HIP ACTB COCR G7 TYPE 1 #[id number] - SN/A HEAD FMRL 40MM -3MM OFFSET HIP ACTB COCR G7 TYPE 1 #[id number] N/A [employer] [id number] Left 1 Implanted Patient's Condition: good Findings: above Any other important information: none Please see dictated operative report for additional detail. [facility] 2024-01-05 14:21:09 Patients daughter has been contacted by the surgical center with the time of the arrival of the surgery. Janessa Luna [facility] 2024-01-05 12:12:11 Ghazala Orozco is a 83 year old female Calling to what time she needs to arrive by for surgery on 01/07. Leave VM if Pt doesn't answer Kriss Rider [facility] 2024-01-02 09:15:00 Images from the original note were not included. Venipuncture collection performed by clean technique on the left anticubitus. Total of 1 attempts were made. Slight pressure and a bandage/dressing were applied to the site(s). The patient experienced no complications. The following specimens were processed according to instructions and sent to [facility] laboratories per lab order on 12/18/26: LT BLUE SST 1 RED LAV 2 PPT DK GREEN (LiHep) DK GREEN (SodH) JOHNSON DK BLUE (K2) DK BLUE (S) ACD Blood Culture NIPT/NTD [facility] 2024-01-02 09:15:00 Images from the original note were not included. Patient has been identified by and name and was provided with cup, antiseptic towelette, and clean catch instructions. 1 urine specimen(s) sent. Unpreserved 1 Urine Culture Aptima tube Other urine Ofe Sahu [facility] 2024-01-01 14:01:28 Images from the original note were not included. Your procedure is at [facility] on 01/08/24. The address is [address] [place] [address], [facility], [address] [facility] nursing staff will call you the workday before your procedure to let you know what time to arrive.On the day of your procedure, please go inside that door and check in at the desk. Please note: You may not travel home alone and that includes in a taxi or by bus. We must speak to your Responsible Adult (who will be picking you up) the morning of your procedure, before the start of your procedure. This person must be an adult over the age of 18 years of age. Do not eat any solid food after midnight the night before surgery. You may have sips of clear liquids such as water, gatorade, and sprite up until two hours before your scheduled procedure. You may take your medications with a sip of water as directed by physician. Anticoagulants will be per physician guidance. Medication Note(s)/Instructions:n/a Pending screening, we may test for COVID. If a patient tests positive, their cases are cancelled and/or rescheduled. COVID SCREENING NOTE: Denies COVID symptoms, no testing required. Additional requests, questions, concerns:Coming in tomorrow for labs and pre-op testing. CB number and availability provided. Patient verbalized understanding of pre-op instructions and voiced no further questions at this time. [facility] 2023-09-18 10:01:00 BRIEF OPERATIVE NOTE Date of Surgery: 09/18/2023 Surgeons and Role: * Caitlyn Rosario MD - Primary Pre-Op Diagnosis: Pre-op testing [Z01.818] Primary osteoarthritis of left hip [M16.12] Post-Op Diagnosis Codes: * Pre-op testing [Z01.818] * Primary osteoarthritis of left hip [M16.12] Procedures: Procedure(s) (LRB): MAJOR JOINT INJECTION (Left) INJECTION THERAPEUTIC AGENT LOWER EXTREMITY (Left) CPT: 58471, 90055, Any Complications Encounters: 0 Estimated Blood Loss: 0 Specimens Removed: * No specimens in log * * No implants in log * Patient's Condition: good Findings: above Any other important information: none Please see dictated operative report for additional detail. ORT-ORTHOPAEDIC SURGERY STAFF [facility] 2023-09-12 12:29:57 Images from the original note were not included. Your procedure is at [facility] on 09/18/23. The address is [address] [place] [address], [address] [facility] nursing staff will call you the workday before your procedure to let you know what time to arrive.On the day of your procedure, please go inside that door and check in at the desk. Please note: You may not travel home alone and that includes in a taxi or by bus. We must speak to your Responsible Adult (who will be picking you up) the morning of your procedure, before the start of your procedure. This person must be an adult over the age of 18 years of age. Do not eat any solid food after midnight the night before surgery. You may have sips of clear liquids such as water, gatorade, and sprite up until two hours before your scheduled procedure. You may take your medications with a sip of water as directed by physician. Anticoagulants will be per physician guidance. Medication Note(s)/Instructions:n/a Pending screening, we may test for COVID. If a patient tests positive, their cases are cancelled and/or rescheduled. COVID SCREENING NOTE: Denies COVID symptoms, no testing required. Additional requests, questions, concerns:CB number and availability provided. Patient verbalized understanding of pre-op instructions and voiced no further questions at this time. T Shelby Roberts RN [facility] 2023-09-12 12:15:00 Images from the original note were not included. Venipuncture collection performed by clean technique on the left anticubitus. Total of 2 attempts were made. Slight pressure and a bandage/dressing were applied to the site(s). The patient experienced no complications. The following specimens were processed according to instructions and sent to [facility] laboratories per lab order on today: LT BLUE SST RED LAV 2 PPT DK GREEN (LiHep) DK GREEN (SodH) JOHNSON DK BLUE (K2) DK BLUE (S) ACD Blood Culture NIPT/NTD Patient has been identified by and name and was provided with cup, antiseptic towelette, and clean catch instructions. 2 urine specimen(s) sent. Unpreserved 2 Urine Culture Aptima tube Other urine T [facility] 2023-05-31 09:45:00 Images from the original note were not included. Venipuncture collection performed by clean technique on the right anticubitus. Total of 1 attempts were made. Slight pressure and a bandage/dressing were applied to the site(s). The patient experienced no complications. The following specimens were processed according to instructions and sent to [facility] laboratories per lab order on 05/31/2023: LT BLUE SST 1 RED LAV 1 PPT DK GREEN (LiHep) DK GREEN (SodH) JOHNSON DK BLUE (K2) DK BLUE (S) ACD Blood Culture NIPT/NTD [facility] 2023-05-30 10:04:43 Called patient but no answer so LVM to call back or send a [employer] message. Meron Last 05/30/2023 10:05 AM E TEACHER Meron Last [facility] 2023-05-29 10:34:39 Patient want to discuss pre op has questions about test that she needs. ISH Do [facility] 2023-05-29 09:50:02 Pre op orders.Meron Last 05/29/2023 9:53 AM [facility] 2023-05-23 11:46:59 Form signed, faxed and confirmation received. ISH Tobin MA [facility] 2023-05-23 11:14:21 Last clinical notes faxed and confirmation received. ISH Tobin MA [facility] 2023-05-23 10:56:04 Ghazala Orozco is a 83 year old female and Marco with [facility] is calling needing the last 4 clinical notes for the pts HIPAA compliant form that was sent over previously. ISH Camara [facility] 2023-05-22 16:21:51 Referral has been placed to orthopedic surgery. [facility] 2023-05-22 16:11:53 Pt has an appt to see Dr. Rosario on 05/25. Pt is needing referral and auth because of the insurance ISH Lama [facility] 2023-05-22 13:33:02 Form placed in provider folder for review. ISH Tobin MA [facility] 2023-05-22 12:24:26 Images from the original note were not included. E TEACHER Shira Milind [facility] 2022-12-27 09:59:28 Formatting of this n ote might be different from the original. Spoke with patient and informed of lab results. Patient is wanting to change prescription to [facility] since [facility] in [place] no longer take her insurance. Patient had no further question. Medication will be sent to pharmacy. [facility] 2022-12-26 16:54:32 Formatting of this n ote might be different from the original. Attempted to reach pt at [phone], no answer and no voicemail available. Amaya Salas RN [facility] 2022-12-23 16:23:11 Formatting of this n ote might be different from the original. Pt calling wanting a nurse to call her back regarding her lab results. Kriss Rider [facility] 2022-12-23 14:06:34 Formatting of this n ote might be different from the original. Patient called asking to speak to nurse regarding her test result. Please advise Alex Potts [facility] 2022-12-21 11:15:00 Formatting of this n ote is different from the original. Images from the original note were not included. Venipuncture collection performed by clean technique on the left anticubitus. Total of 1 attempts were made. Slight pressure and a bandage/dressing were applied to the site(s). The patient experienced no complications. The following specimens were processed according to instructions and sent to [facility] laboratories per lab order on 12/21/2022 : LT BLUE SST 3 RED LAV 2 PPT DK GREEN (LiHep) DK GREEN (SodH) JOHNSON DK BLUE (K2) DK BLUE (S) ACD Blood Culture NIPT/NTD [facility]"
--- NOTE | 2024-02-07 17:49 | RAD REPORT ---
EXAM: CT brain without contrast HISTORY: Headache COMPARISON: None TECHNIQUE: Multiple contiguous axial images were obtained and a CT of the brain without contrast.. Sagittal and coronal reconstruction performed. Automated exposure control, adjustment of the mA and/or kV according to patient size, and/or iterative reconstruction. Unless otherwise specified, incidental f indings do not require dedicated imaging follow-u FINDINGS: An intracranial bleed is not seen Ventricles are normal caliber No extra-axial fluid collection noted Moderate low-density paraventricular, deep and subcortical white matter probably ischemic changes sec ondary to small vessel disease. No fluid within the visualized sinuses or mastoids noted. IMPRESSION: No acute intracranial abnormality noted. If the patient's symptoms persist MRI of the brain would be recommended.
--- NOTE | 2024-02-07 17:53 | RAD REPORT ---
Exam:Hip Left 2 View HISTORY: Left hip pain FINDINGS: Lucency inferior left pubic ramus equivocal for a nondisplaced fracture. Left hip prosthesis without evidence of loosening. No dislocation
--- NOTE | 2024-02-07 18:12 | EDPHYS ---
Physician Documentation [facility] Name: Ghazala Orozco Age: 83 yrs Sex: Female : 1940 Arrival Date: 02/07/2024 Time: 16:25 Bed 27 Private MD: ED Physician Jacobo Babb HPI: 02/06 16:52 This 83 yrs old Female presents to ER via EMS with complaints of Fall Injury. rn 16:52 Details of fall: The patient fell from an upright position. Onset: The symptoms/episode rn began/occurred just prior to arrival. Associated injuries: The patient sustained injury to the head, Left hip. Severity of symptoms: At their worst the symptoms were mild, in the emergency department the symptoms are unchanged. The patient has not experienced similar symptoms in the past. Patient reports left hip replacement [address] Villalta. Today a dog ran into her and caused her to fall backward. States struck head but no LOC or vomiting. Remembers all events. No blood thinners. Landed on concrete. Also reports mild pain to the left hip but no deformity. States wound is healing well and has had pain since the surgery and pain today is not any worse than it has been.. Historical: - Allergies: 16:31 Codeine; me1 16:31 tramadol; me1 - PMHx: 16:31 None; me1 - PSHx: 16:31 left hip replacement; me1 - Immunization history:: Adult Immunizations up to date. - Infectious Disease History:: Denies. - Social history:: Smoking status: Patient/guardian denies using tobacco, but has a distant history of tobacco abuse. - Family history:: not pertinent. - Hospitalizations: : No recent hospitalization is reported. ROS: 16:52 Constitutional: Negative for fever, chills, and weight loss, Cardiovascular: Negative rn for chest pain, palpitations, and edema, Respiratory: Negative for shortness of breath, cough, wheezing, and pleuritic chest pain, Abdomen/GI: Negative for abdominal pain, nausea, vomiting, diarrhea, and constipation, Back: Negative for injury and pain, MS/Extremity: Positive for left hip pain Neuro: Positive for mild headache Exam: 16:52 Constitutional: This is a well developed, well nourished patient who is awake, alert, rn and in no acute distress. Head/Face: Small contusion to the occiput. No open wound or bleeding. Eyes: Pupils equal round and reactive to light, extra-ocular motions intact. Neck: No midline cervical tenderness Chest/axilla: No rib tenderness or crepitus Cardiovascular: Regular rate and rhythm. No pulse deficits. Respiratory: Speaking full sentences, unlabored. Abdomen/GI: Soft, nontender Back: No midline spinal tenderness and patient able to sit up completely on her own. MS/ Extremity: Full range of motion of the left hip. Surgical wound is well healing without signs of infection or dehiscence. Neuro: Awake and alert, GCS 15 Vital Signs: 16:29 BP 123 / 75; Pulse 84; Resp 16; Temp 98.4; Pulse Ox 96% ; Weight 45.36 kg; Height 4 ft. me1 11 in. ; Pain 8/10; 17:00 BP 120 / 78; Pulse 80; Resp 16; Pulse Ox 97% ; me1 18:12 BP 132 / 84; Pulse 76; Resp 16; Temp 98.1; Pulse Ox 100% ; me1 16:29 Body Mass Index 20.20 (45.36 kg, 149.86 cm) me1 16:29 Pain Scale: Adult me1 MDM: 16:29 Medical Screening Exam initiated rn 18:10 Differential diagnosis: closed head injury, contusion, fracture, sprain, strain. Data rn reviewed: vital signs, nurses notes, radiologic studies, CT scan, plain films, and as a result, I will discharge patient. Counseling: I had a detailed discussion with the patient and/or guardian regarding the historical points, exam findings, and any diagnostic results supporting the discharge/admit diagnosis, radiology results, the need for outpatient follow up, to return to the emergency department if symptoms worsen or persist or if there are any questions or concerns that arise at home. Special discussion: I discussed with the patient/guardian in detail that at this point there is no indication for admission to the hospital. It is understood, however, that if the symptoms persist or worsen the patient needs to return immediately for re-evaluation. Based on the history and exam findings, there is no indication for further emergent testing or inpatient evaluation. I discussed with the patient/guardian the need to see the orthopedic surgeon for further evaluation of the symptoms. ED course: CT head without acute findings. X-ray left hip negative for hip fracture or femur fracture but does show possible left inferior pubic ramus fracture per my interpretation. Nonoperative fracture. Minimal pain. Will discharge home with Ortho follow-up.. 02/06 16:48 Order name: XRAY Hip LEFT 2 view; Complete Time: 18:02 rn 02/06 16:48 Order name: CT Head Brain wo Cont; Complete Time: 18:02 rn Administered Medications: No medications were administered Disposition Summary: 02/07/24 18:11 Discharge Ordered Notes: Location: Home rn Problem: new rn Symptoms: have improved rn Condition: Stable rn Diagnosis - Left inferior pubic ramus fracture, nondisplaced rn - Unspecified injury of head, initial encounter rn Followup: rn - With: Toribio Villalta MD - When: 7 - 10 days - Reason: Recheck today's complaints, Re-evaluation by your physician Discharge Instructions: - Discharge Summary Sheet rn - Head Injury, Adult rn - Simple Pelvic Fracture, Adult rn Forms: - Medication Reconciliation Form rn - Antibiotic rn imaging - Prescription Opioid Use rn - Patient Portal Instructions rn - Leadership Thank You Letter rn Signatures: Dispatcher [employer] Jacobo Mattson MD MD rn Cindi Casas, RN RN me1
--- NOTE | 2024-02-07 18:12 | ER ---
Nurse's Notes [facility] Name: Ghazala Orozco Age: 83 yrs Sex: Female : 1940 Arrival Date: 02/07/2024 Time: 16:25 Bed 27 Private MD: Diagnosis: Left inferior pubic ramus fracture, nondisplaced;Unspecified injury of head, initial encounter Presentation: 02/06 16:29 Chief complaint: EMS states: toned out for fall. Patient was walking and a dog jumped me1 on her and caused her to fall onto her left hip. States she did hit her head. No blood thinners. Left hip replacement about one month ago. Coronavirus screen: Vaccine status: Patient reports receiving the 2nd dose of the covid vaccine. Ebola Screen: No symptoms or risks identified at this time. Initial Sepsis Screen: Does the patient meet any 2 criteria? No. Patient's initial sepsis screen is negative. Does the patient have a suspected source of infection? No. Patient's initial sepsis screen is negative. Risk Assessment: Do you want to hurt yourself or someone else? Patient reports no desire to harm self or others. Onset of symptoms was February 07, 2024 at 15:30. 16:29 Method Of Arrival: [place]: [facility] [place] Acuity: SANDY 3 me1 Triage Assessment: 16:31 General: Appears uncomfortable, well groomed, well developed, well nourished, Behavior me1 is calm, cooperative, appropriate for age. Pain: Complains of pain in left hip Pain does not radiate. Pain currently is 8 out of 10 on a pain scale. Quality of pain is described as aching, Pain began suddenly, Is continuous. EENT: No signs and/or symptoms were reported regarding the EENT system. Neuro: Level of Consciousness is awake, alert, obeys commands, Oriented to person, place, time, situation, Appropriate for age. Cardiovascular: Patient's skin is warm and dry. Respiratory: Airway is patent Respiratory effort is even, unlabored, Respiratory pattern is regular, symmetrical. GI: No signs and/or symptoms were reported involving the gastrointestinal system. : No signs and/or symptoms were reported regarding the genitourinary system. Derm: Skin is intact, is healthy with good turgor, Skin is pink, warm \T\ dry. Musculoskeletal: Reports pain in left hip. Injury Description: fell when a dog jumped on her. pain to left hip that was replaced about one month ago. Historical: - Allergies: 16:31 Codeine; me1 16:31 tramadol; me1 - PMHx: 16:31 None; me1 - PSHx: 16:31 left hip replacement; me1 - Immunization history:: Adult Immunizations up to date. - Infectious Disease History:: Denies. - Social history:: Smoking status: Patient/guardian denies using tobacco, but has a distant history of tobacco abuse. - Family history:: not pertinent. - Hospitalizations: : No recent hospitalization is reported. Screenin:34 [facility] ED Fall Risk Assessment (Adult) History of falling in the last 3 months, me1 including since admission Yes- single mechanical fall (1 pt) Confusion or Disorientation No (0 pts) Intoxicated or Sedated No (0 pts) Impaired Gait Yes (1 pt) Mobility Assist Device Used Yes (1 pt) Altered Elimination No (0 pt) Score/Fall Risk Level 3 or more points = High Risk Maintained a safe environment, Hourly rounding (assess needs \T\ fall precautionary measures) done, Used ambulatory aids as needed (educated on \T\ assisted with). Abuse screen: Denies threats or abuse. Nutritional screening: No deficits noted. Tuberculosis screening: No symptoms or risk factors identified. Assessment: 16:34 General: See triage assessment. . me1 Vital Signs: 16:29 BP 123 / 75; Pulse 84; Resp 16; Temp 98.4; Pulse Ox 96% ; Weight 45.36 kg; Height 4 ft. me1 11 in. ; Pain 8/10; 17:00 BP 120 / 78; Pulse 80; Resp 16; Pulse Ox 97% ; me1 18:12 BP 132 / 84; Pulse 76; Resp 16; Temp 98.1; Pulse Ox 100% ; me1 16:29 Body Mass Index 20.20 (45.36 kg, 149.86 cm) me1 16:29 Pain Scale: Adult ms1 ED Course: 16:28 Patient arrived in ED. me1 16:29 Jacobo Babb MD is Attending Physician. rn 16:31 Triage completed. me1 16:31 Arm band placed on Patient placed in an exam room. me1 16:34 Patient has correct armband on for positive identification. Bed in low position. Call me1 light in reach. Side rails up X2. Provided Education on: POC. Verbalized understanding. . Client placed on continuous cardiac and pulse oximetry monitoring. NIBP monitoring applied. Pulse ox on. NIBP on. 16:34 No provider procedures requiring assistance completed. me1 17:01 Cindi Casas, RN is Primary Nurse. me1 17:35 XRAY Hip LEFT 2 view In Process Unspecified. EDMS 17:39 CT Head Brain wo Cont In Process Unspecified. EDMS 18:11 Toribio Gregg MD is Referral Physician. rn 18:17 Patient did not have IV access during this emergency room visit. me1 Administered Medications: No medications were administered Medication: 16:34 VIS not applicable for this client. me1 Outcome: 18:11 Discharge ordered by . rn 18:37 Patient left the ED. me1 Signatures: Dispatcher [employer] EDDE Jacobo Babb MD MD rn Eddleman, Michelle, AIMEE RN me1
[2024-02-08 01:32] VITALS: BP 132/84; TEMP 98.1; O2SAT 100
== END 2024-02-07 18:37 | disposition home or self-care (01) ==
LOC: ER 16:25
DX: S32.592A Other specified fracture of left pubis, initial encounter for closed fracture (principal); S09.90XA Unspecified injury of head, initial encounter; Z96.642 Presence of left artificial hip joint
CPT/HCPCS: 70450; 99283

== ENCOUNTER 2024-02-15 17:57 | Emergency (ER) | payer OTHER ==
--- OUTSIDE RECORDS SUMMARY | 2024-02-15 18:08 | XMS REPORT | Continuity of Care Document ---
Author Name Unknown Address [address] [facility] [place] [address] [facility] Address [address] 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 Role Phone LOYDA MCDONOUGH Primary Care Physician Unavailab LOYDA Pro Attending Clinician Unavailable LOYDA MCDONOUGH Attending Clinician Unavailable CAITLYN ROSARIO Attending Clinician UnavailCAITLYN Dunne Attending Clinician UnavailCaitlyn Dunne MD Attending Clinician [phone] JERRY IBARRA Attending Clinician Unavailchayo mccall Doctor Unassigned, Aguilares Attending Clinician U Loyda Ho MD Attending Clinician [phone] Brianna Grant PA-C Attending Clinician [phone] 2, [facility] Attending Clinician Unavailable Kumar Choe PTA Attending Clinician UnavailJerry Rueda MD Attending Clinician [phone] Caitlyn Rosario MD Attending Clinician [phone] Betty Grande MD Attending Clinician [phone] BETTY GRANDE Attending Clinician Unavailable Doctor Unassigned, Aguilares Attending Clinician U iris Pob, [facility] Main Attending Clinician Unavailabl e Lab, Ang - Db Attending Clinician Unavailable Marko SCHOFIELD, Devaughn Attending Clinician [phone] Diana JESUS, Doron Attending Clinician [phone] Ebleonidas TYPING POOL SUPERVISOR, Meseret Attending Clinician [phone] Unknown, Attending Attending Clinician Unavailab MESERET Bay Attending Clinician Unavailable OBI-MARIE, DEVAUGHN Attending Clinician Unavailab jaqueline Nurse, Zuhair Salcedo Attending Clinician Unavailable DORON ORTIZ Attending Clinician Unavailab le 2, [facility] Attending Clinician Unavailable Stacey SCHOFIELD, Jerry Jackson Attending Clinician [phone] Aysha Alonso MD Attending Clinician [phone] TRACEY CEDENO Attending Clinician Unavailable Wilian SCHOFIELD, Tracey Attending Clinician [phone] UNKNOWN, ATTENDING Attending Clinician Unavailab CASSIA Ram Attending Clinician Unavailable Nimflorence TYPING POOL SUPERVISOR, Tennille L Attending Clinician [phone] KATIE CORTEZ Attending Clinician Unavailable Cortez PAC, Katie S Attending Clinician [phone] MARITZA BEAR Attending Clinician Unava ilable TENNILLE GARCIA L Attending Clinician Unavailable King REENA MD, Mason Jorge Attending Clinician [phone] Flaquito YU, Vlad Lou Attending Clinician Unavail able VENECIA CALLOWAY Attending Clinician Unavailable Rahul SCHOFIELD, Rene Lou Attending Clinician +[phone] Venecia Calloway DO Attending Clinician [phone] MARIA DOLORES GAXIOLA Attending Clinician Unavailab Amelia Moore PA-C Attending Clinician [phone] Maria Dolores Lombardi Attending Clinician + [phone] Russel PACKevin Attending Clinician [phone] Nurse, Zuhair [facility] Attending Clinician Un available MINESH STANFORD Attending Clinician Unavail able Cassia Cleaning MD Attending Clinician [phone] Maritza Bear MD Attending Clinician [phone] Nurse, Pepito Pob Immunization Attending Clinician Unavailable Minesh Stanford DO Attending Clinician [phone] LIAM ROSS Attending Clinician Unavailable LILLI HANSON Attending Clinician Unavailable Raju_P Attending Clinician Unavailable CAITLYN ROSARIO Admitting Clinician UnavailCaitlyn Dunne MD Admitting Clinician [phone] Caitlyn Rosario MD Admitting Clinician [phone] JERRY IBARRA Admitting Clinician UnavailCASSIA Vasques Admitting Clinician Unavailable VENECIA CALLOWAY Admitting Clinician Unavailable Venecia Calloway DO Admitting Clinician [phone] Raju_P Admitting Clinician Unavailable Payers Payer Name Policy Type Policy Number Effective Date Expirati on Date Source MEDICARE PART A \\T\\ B [id number] 2004 00:00:00 FOR LIFE [id number] 2022 00:00:00 FOR LIFE [id number] 2020 00:00:00 FOR LIFE [id number] 2004 00:00:00 [place] [employer] [id number] 2004 00:00:[address] [facility] [id number] 2008 00:00:00 Problems Condition Name Condition Details Condition Category Status Onset Date Resolution Date Last Treatment Date Treating Clinician Comments Source Preoperati ve cardiovasc ular examinatio n Preoperati ve cardiovasc ular examinatio n Disease Active 10-23 00:00: 00 [facility] Prediabete s Prediabete s Disease Active 10-23 00:00: 00 [facility] Pre-op testing Pre-op testing Disease Active 09-11 00:00: 00 [facility] Primary osteoarthr itis of left hip Primary osteoarthr itis of left hip Disease Active 09-11 00:00: 00 [facility] Allergic rhinitis Allergic rhinitis Disease Active 07-15 00:00: 00 [facility] 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 Disease Active 07-15 00:00: 00 [facility] Hearing loss Hearing loss Disease Active 07-15 00:00: 00 [facility] Hemangioma Hemangioma Disease Active 07-15 00:00: 00 [facility] Impacted cerumen Impacted cerumen Disease Active 07-15 00:00: 00 [facility] Tinnitus Tinnitus Disease Active 07-15 00:00: 00 [facility] Pneumonia due to COVID-19 virus Pneumonia due to COVID-19 virus Disease Active 2021-04 00:00: 00 [facility] Troponin I above reference range Troponin I above reference range Disease Active 2021-04 00:00: 00 [facility] Other chest pain Other chest pain Disease Active 2021-04 00:00: 00 [facility] Coronaviru s infection Coronaviru s infection Disease Active 2021-04 00:00: 00 [facility] Primary osteoarthr itis of left knee Primary osteoarthr itis of left knee Disease Active 10-27 00:00: 00 [facility] GERD (gastroeso phageal reflux disease) GERD (gastroeso phageal reflux disease) Disease Active 07-02 00:00: 00 [facility] Vitamin D deficiency Vitamin D deficiency Disease Active 07-02 00:00: 00 Overview: Formattin g of this note might be different from the original. 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 [facility] Osteoporos is Osteoporos is Disease Active 07-02 00:00: 00 [facility] Mixed hyperlipid emia Mixed hyperlipid emia Disease Active 07-02 00:00: 00 [facility] Actinic keratosis Actinic keratosis Disease Active 07-02 00:00: 00 [facility] Allergies, Adverse Reactions, Alerts Allergy Name Allergy Type Status Severity Reaction(s) Onset Date Inactive Date Treating Clinician Comments Source NSAIDS (NON-EHSAN ROIDAL ANTI-INF LAMMATOR Y DRUG) Drug Class Active Med Palpitations 9-16 00:00: 00 [facility] Nsaids (Non-Ehsan roidal Anti-Inf lammator y Drug) Propensi ty to adverse reaction s to drug Active Palpitations 16 00:00: 00 [facility] LATEX DRUG INGREDI Active ITCHING 216 00:00: 00 [facility] Latex Propensi ty to adverse reaction s Active Itching 16 00:00: 00 [facility] TRAMADOL DRUG INGREDI Active Dizziness 04-20 00:00: 00 [facility] Tramadol Propensi ty to adverse reaction s Active Nausea and/or Vomiting 04-20 00:00: 00 [facility] CODEINE DRUG INGREDI Active Dizziness 11-08 00:00: 00 [facility] Codeine Propensi ty to adverse reaction s Active Dizziness 11-08 00:00: 00 [facility] Social History Social Habit Start Date Stop Date Quantity Comments Source [facility] Alcoholic beverage intake 2024-01-11 00:00:00 2024-01-11 00:00:00 Current non-drinker of alcohol (finding) [facility] Tobacco use and exposure 2023-09-08 00:00:00 2023-09-08 00:00:00 Smokeless tobacco non-user [facility] History of Social function 2023-05-25 00:00:00 2023-05-25 00:00:00 [facility] Alcohol intake 2023-05-25 00:00:00 2023-05-25 00:00:00 Current non-drinker of alcohol (finding) [facility] Exposure to SARS-CoV-2 (event) 2022-08-28 00:00:00 2022-09-07 11:49:00 Not sure [facility] History SDOH Food Worry 2022-02-23 00:00:00 2022-02-23 00:00:00 1 [facility] History SDOH Food Scarcity 2022-02-23 00:00:00 2022-02-23 00:00:00 1 [facility] History SDOH Transport Med 2022-02-23 00:00:00 2022-02-23 00:00:00 2 [facility] History SDOH Transport Non-Med 2022-02-23 00:00:00 2022-02-23 00:00:00 2 [facility] Tobacco Comment 2022-02-20 00:00:00 2022-02-20 00:00:00 Quit in her 60's [facility] History of tobacco use 1974-04-17 00:00:00 Cigarette Smoker [facility] Sex assigned at 1940 00:00:00 1940 00:00:00 [facility] Smoking Status Start Date Stop Date Source Ex-smoker 2023-09-08 00:00:00 2023-09-08 [facility] Ordered Medication Name Filled [...] to 7 days. Indication s: acute pain [facility] FENTanyl (PF) (SUBLIMAZE) injection 25 mcg 01-07 16:29: 54 01-07 21:50 :05 No 25ug 25 mcg, Slow IV Push, Q5MIN PRN, 4 doses, Starting on Mon01/08/24 at 1129, Until Mon01/08/24 at 1650, Routine, Pain Scale 4-6, PACU [facility] ondansetron (ZOFRAN (PF)) injection 4 mg 01-07 16:29: 54 01-07 21:50 :05 No 4mg 4 mg, Slow IV Push, PRN, 1 dose, Starting on Mon01/08/24 at 1129, Until Mon01/08/24 at 1650, Routine, Nausea and Vomiting (N/V), PACU [facility] BUPivacaine liposome (PF) (EXPAREL (PF)) 1.3 % (13.3 mg/mL) 266 mg, bupivacaine -epinephrin e-pf (SENSORCAIN E W/EPINEPHRI NE) 0.25 %-1:200,000 30 mL, NaCl 0.9% (NS) 70 mL 01-07 14:56: 00 01-07 16:14 :56 No PRN, Starting on Mon01/08/24 at 0956, Intra-op [facility] sodium chloride 0.9 % irrigation solution 01-07 14:51: 00 01-07 16:14 :56 No PRN, Starting on Mon01/08/24 at 0951, Until Mon01/08/24 at 1114, Intra-op [facility] celecoxib (CELEBREX) capsule 400 mg 01-07 12:45: 00 01-07 12:54 :00 No 400mg 400 mg, Oral, ONCE, 1 dose, On Mon01/08/24 at 0745, Routine, DSU Pre-op [facility] gabapentin (NEURONTIN) capsule 300 mg 01-07 12:45: 00 01-07 12:55 :00 No 300mg 300 mg, Oral, ONCE, 1 dose, On Mon01/08/24 at 0745, Routine, DSU Pre-op [facility] lactated ringers IV infusion 1,000 mL 01-07 12:45: 00 01-07 12:55 :00 No 1000mL at 42 mL/hr, 1,000 mL, IV Infusion, ONCE, 1 dose, On Mon01/08/24 at 0745, Routine, DSU Pre-op [facility] tranexamic acid (CYKLOKAPRO N) 1,000 mg in NaCl 0.9% (NS) 250 mL piggyback 01-07 05:00: 00 01-07 16:59 :00 Yes 1000mg [facility] aspirin 325 mg tablet 01-07 00:00: 00 02-05 04:59 :00 Yes [id number] 325mg Take 1 tablet by mouth in the morning and 1 tablet in the evening. Take with meals. Do all this for 28 days. [facility] HYDROcodone -acetaminop hen 5-325 mg tablet 01-07 00:00: 00 01-08 00:00 :00 No [id number] 1{tbl} Take 1 tablet by mouth every 6 (six) hours as needed for Pain (scale 4-6) or Pain (scale 7-10) for up to 7 days. Indication s: acute pain [facility] dexamethaso ne (DECADRON PHOSPHATE) injection 09-17 14:41: 00 09-17 15:07 :37 No PRN, Starting on Mon09/18/23 at 0941, Until Mon09/18/23 at 1007, Routine, Intra-op [facility] bupivacaine (preserv free) 0.5% (SENSORCAIN E MPF) injection 09-17 14:41: 00 09-17 15:07 :37 No PRN, Starting on Mon09/18/23 at 0941, Until Mon09/18/23 at 1007, Routine, Intra-op [facility] lactated ringers IV infusion 1,000 mL 09-17 14:00: 00 09-17 14:23 :00 No 1000mL at 42 mL/hr, 1,000 mL, IV Infusion, ONCE, 1 dose, On Mon09/18/23 at 0900, Routine, DSU Pre-op [facility] multivitami n tablet 09-17 11:24: 13 Yes 1{tbl} Take 1 tablet by mouth in the morning. Complete women's 50+, [employer] brand. [facility] turmeric root extract 500 mg Cap 09-17 11:24: 13 01-07 00:00 :00 No 500mg Take 500 mg by mouth 2 (two) times daily. [facility] aspirin 81 mg Cap 2-08 08:23: 51 Yes 3{capsu le} Take 3 capsules by mouth at bedtime. [facility] Cholecalcif melissa, Vitamin D3, (VITAMIN D3) 1,000 unit Cap 2-08 08:23: 51 09-07 00:00 :00 No 2000U Take 2 capsules by mouth in the morning. [facility] atorvastati n 20 mg tablet 12-27 00:00: 00 09-07 00:00 :00 No [id number] 20mg Take 1 tablet by mouth at bedtime. [facility] atorvastati n 20 mg tablet 12-21 00:00: 00 Yes [id number] 20mg Take 1 tablet by mouth at bedtime. [facility] Diclofenac Sodium (VOLTAREN) 1 % gel 10-21 00:00: 00 01-07 00:00 :00 No [id number] Take 2-4 grams three times a day as needed for pain [facility] meclizine 25 mg tablet 10-21 00:00: 00 09-07 00:00 :00 No [id number] 25mg Take 1 tablet by mouth 3 (three) times daily as needed for Dizziness or Nausea. [facility] NaCl 0.9% (NS) bolus infusion 1,000 mL 10-16 17:30: 00 10-16 17:57 :00 No 1000mL at 999 mL/hr, 1,000 mL, IV Infusion, ONCE, 1 dose, On 10/16/22 at 1230, VICTORIA [facility] meclizine (TRAVEL-EAS E (MECLIZINE) ) tablet 25 mg 10-16 16:45: 00 10-16 16:53 :00 No 25mg 25 mg, Oral, ONCE, 1 dose, On 10/16/22 at 1145, VICTORIA [facility] aspirin 81 mg Cap 10-16 15:40: 18 09-07 00:00 :00 No 3{capsu le} Take 3 capsules by mouth at bedtime. [facility] turmeric root extract 500 mg Cap 05 09:39: 06 Yes 500mg Take 500 mg by mouth 2 (two) times daily. [facility] loratadine 10 mg tablet 07-20 09:39: 06 Yes 10mg Take 1 tablet by mouth in the morning. [facility] turmeric root extract 500 mg Cap 07-20 09:39: 06 Yes 500mg Take 500 mg by mouth 2 (two) times daily. [facility] cyclobenzap rine 10 mg tablet 04-20 00:00: 00 09-07 00:00 :00 No [id number] 10mg Take 1 tablet by mouth at bedtime. [facility] predniSONE 20 mg tablet 2021-04 00:00: 00 04-20 00:00 :00 No [id number] 20mg Take 1 tablet by mouth in the morning. [facility] bromphenira mine-pseudo ephedrine-D M (BROMFED DM) 2-30-10 mg/5 mL syrup 2021-04 00:00: 00 04-20 00:00 :00 No [id number] 5mL Take 5 mL by mouth 3 (three) times daily as needed for Congestion /Allergies or Cough. [facility] zinc sulfate 50 mg zinc (220 mg) capsule 2021-04 00:00: 00 03-03 05:59 :00 No [id number] 50mg Take 1 capsule by mouth in the morning for 7 days. [facility] multivitami n tablet 2021-04 18:08: 11 Yes 1{tbl} Take 1 tablet by mouth daily. Complete women's 50+, [employer] brand. [facility] Cholecalcif melissa, Vitamin D3, (VITAMIN D3) 1,000 unit Cap 2021-04 18:08: 11 Yes 2{capsu le} Take 2 Caps by mouth daily. [facility] turmeric root extract 500 mg Cap 2021-04 18:08: 11 Yes 500mg Take 500 mg by mouth 2 (two) times daily. [facility] loratadine 10 mg tablet 2021-04 18:08: 11 09-07 00:00 :00 No 10mg Take 1 tablet by mouth in the morning. [facility] benzonatate 100 mg capsule 2021-04 00:00: 00 03-25 05:59 :00 No [id number] 200mg Take 2 capsules by mouth every 8 (eight) hours as needed for Cough for up to 30 days. [facility] ascorbic acid, vitamin C, 500 mg tablet 2021-04 00:00: 00 03-02 05:59 :00 No [id number] 500mg Take 1 tablet by mouth in the morning for 7 days. [facility] cholecalcif melissa (vitamin D3) tablet 2,000 Units 2021-04 15:00: 00 Yes 2000U 2,000 Units, Oral, DAILY, First dose (after last modificati on) on Mon02/21/22 at 0900, Until Discontinu ed, Routine [facility] aspirin chewable tablet 81 mg 2021-04 15:00: 00 Yes 81mg 81 mg, Oral, DAILY, First dose on Mon02/21/22 at 0900, Until Discontinu ed, Routine [facility] aspirin tablet 325 mg 2021-04 15:00: 00 02-21 02:12 :48 No 325mg 325 mg, Oral, DAILY, First dose on Mon02/21/22 at 0900, Until Discontinu ed, Routine [facility] aspirin tablet 325 mg 2021-04 03:00: 00 02-21 02:54 :00 No 325mg 325 mg, Oral, ONCE, 1 dose, On 02/20/22 at 2100, Routine [facility] zinc sulfate (ORAZINC) capsule 50 mg 2021-04 02:45: 00 Yes 50mg 50 mg, Oral, DAILY, First dose on 02/20/22 at 2045, Until Discontinu ed, Routine [facility] ascorbic acid (vitamin C) (VITAMIN C) tablet 500 mg 2021-04 02:45: 00 Yes 500mg 500 mg, Oral, BID, First dose on 02/20/22 at 2044, Until Discontinu ed, [facility]ine [facility] (ZITHROMAX) tablet 500 mg 2021-04 02:45: 00 02-22 17:25 :08 No 500mg 500 mg, Oral, DAILY, 5 doses, First dose on Mon02/20/22 at 204, Last dose on Mon02/24/22 at 0900, VICTORIA
Re ason for Anti-Infec tive: Empiric Therapy for Suspected Infection< br>Empiric Therapy Site: Respirator y
Durat ion of therapy: 5 days [facility] cholecalcif melissa (vitamin D3) tablet 1,000 Units 2021-04 02:45: 00 02-21 03:30 :16 No 1000U 1,000 Units, Oral, DAILY, First dose on 02/20/22 at 2044, Until Discontinu ed, Routine [facility] acetaminoph en (TYLENOL) tablet 650 mg 2021-04 02:36: 50 Yes 650mg 650 mg, Oral, Q6HPRN, Starting on 02/20/22 at 2035, Until Discontinu ed, Routine, Temp > 38.5 C, Pain (scale 1-3) [facility] dextrometho rphan-guaif enesin (ROBITUSSIN DM) 10-100 mg/5 mL solution 10 mL 2021-04 02:36: 38 Yes 10mL 10 mL, Oral, Q6HPRN, Starting on 02/20/22 at 2035, Until Discontinu ed, Routine, Cough [facility] enoxaparin (LOVENOX) injection 40 mg 2021-04 23:00: 00 Yes 40mg 40 mg, Subcutaneo us, DAILY, First dose on 02/20/22 at 1700, Until Discontinu ed, Routine [facility] ibuprofen (MOTRIN IB) tablet 200 mg 2021-04 22:34: 41 Yes 200mg 200 mg, Oral, Q4HPRN, Starting on 02/20/22 at 1634, Until Discontinu ed, Routine, Temp > 38.5 C [facility] NaCl 0.9% (NS) IV infusion 1,000 mL 2021-04 19:45: 00 02-21 14:00 :49 No 1000mL at 125 mL/hr, IV Infusion, CONTINUOUS , Starting on 02/20/22 at 1345, Until 02/21/22 at 0800, Routine [facility] iopamidol (ISOVUE 370-500 mL) injection 100 mL 2021-04 19:30: 00 02-20 19:45 :00 No [id number] 100mL 100 mL, Intravenou s, ONCE, 1 dose, On 02/20/22 at 1345, Routine [facility] molnupiravi r 200 mg capsule 2021-04 00:00: 00 02-22 00:00 :00 No [id number] 800mg Take 4 capsules by mouth every 12 (twelve) hours. [facility] benzonatate 100 mg capsule 2021-04 00:00: 00 02-22 00:00 :00 No [id number] 200mg Take 2 capsules by mouth every 8 (eight) hours as needed for Cough. [facility] multivitami n tablet 04-20 08:27: 15 Yes 1{tbl} Take 1 tablet by mouth daily. Complete women's 50+, [employer] brand. [facility] Cholecalcif melissa, Vitamin D3, (VITAMIN D3) 1,000 unit Cap 04-20 08:27: 15 Yes 2{capsu le} Take 2 Caps by mouth daily. [facility] turmeric root extract 500 mg Cap 04-20 08:27: 15 Yes 500mg Take 500 mg by mouth 2 (two) times daily. [facility] loratadine 10 mg tablet 04-20 08:27: 15 Yes 10mg Take 10 mg by mouth daily. [facility] mupirocin 2 % ointment 04-20 00:00: 00 09-07 00:00 :00 No [id number] Apply to area(s) 3 (three) times daily. [facility] Diclofenac Sodium (VOLTAREN) 1 % gel 04-20 00:00: 00 10-21 00:00 :00 No [id number] 9109 2g gel BID to Left knee. [facility] triamcinolo ne (NASACORT) 55 mcg nasal inhaler 2017-04 00:00: 00 Yes [id number] 2{spray } Use 2 Sprays in each nostril daily. [facility] cycloSPORIN E 0.05 % drops 2016-04 00:00: 00 Yes [id number] 1[drp] Place 1 Drop in both eyes every 12 (twelve) hours. [facility] Immunizations Ordered Immunization Name Filled Immunization Name Date Status Comments Source Influenza Virus Vaccine,quad Im,preserve Free 65+ (FLUAD) 2023-01-20 00:00:00 Completed [facility] Influenza Virus Vaccine,quad Im,preserve Free 65+ (FLUAD) 2023-01-20 00:00:00 Completed [facility] Influenza Virus Vaccine,quad Im,preserve Free 65+ (FLUAD) 2023-01-20 00:00:00 Completed [facility] Remdesivir 2022-02-22 00:00:00 Completed [facility] Remdesivir 2022-02-22 00:00:00 Completed [facility] Remdesivir 2022-02-22 00:00:00 Completed [facility] Remdesivir 2022-02-22 00:00:00 Completed [facility] Remdesivir 2022-02-22 00:00:00 Completed [facility] Remdesivir 2022-02-22 00:00:00 Completed [facility] Remdesivir 2022-02-22 00:00:00 Completed [facility] Remdesivir 2022-02-22 00:00:00 Completed [facility] Remdesivir 2022-02-22 00:00:00 Completed [facility] Remdesivir 2022-02-22 00:00:00 Completed [facility] Remdesivir 2022-02-22 00:00:00 Completed [facility] Remdesivir 2022-02-22 00:00:00 Completed [facility] Remdesivir 2022-02-22 00:00:00 Completed [facility] Remdesivir 2022-02-22 00:00:00 Completed [facility] Remdesivir 2022-02-22 00:00:00 Completed [facility] Remdesivir 2022-02-22 00:00:00 Completed [facility] Remdesivir 2022-02-22 00:00:00 Completed [facility] Remdesivir 2022-02-22 00:00:00 Completed [facility] Remdesivir 2022-02-22 00:00:00 Completed [facility] Remdesivir 2022-02-22 00:00:00 Completed [facility] Remdesivir 2022-02-22 00:00:00 Completed [facility] Remdesivir 2022-02-22 00:00:00 Completed [facility] Remdesivir 2022-02-22 00:00:00 Completed [facility] Remdesivir 2022-02-22 00:00:00 Completed [facility] Remdesivir 2022-02-22 00:00:00 Completed [facility] Remdesivir 2022-02-22 00:00:00 Completed [facility] Remdesivir 2022-02-22 00:00:00 Completed [facility] Remdesivir 2022-02-21 00:00:00 Completed [facility] Remdesivir 2022-02-21 00:00:00 Completed [facility] Remdesivir 2022-02-21 00:00:00 Completed [facility] Remdesivir 2022-02-21 00:00:00 Completed [facility] Remdesivir 2022-02-21 00:00:00 Completed [facility] Remdesivir 2022-02-21 00:00:00 Completed [facility] Remdesivir 2022-02-21 00:00:00 Completed [facility] Remdesivir 2022-02-21 00:00:00 Completed [facility] Remdesivir 2022-02-21 00:00:00 Completed [facility] Remdesivir 2022-02-21 00:00:00 Completed [facility] Remdesivir 2022-02-21 00:00:00 Completed [facility] Remdesivir 2022-02-21 00:00:00 Completed [facility] Remdesivir 2022-02-21 00:00:00 Completed [facility] Remdesivir 2022-02-21 00:00:00 Completed [facility] Remdesivir 2022-02-21 00:00:00 Completed [facility] Remdesivir 2022-02-21 00:00:00 Completed [facility] Remdesivir 2022-02-21 00:00:00 Completed [facility] Remdesivir 2022-02-21 00:00:00 Completed [facility] Remdesivir 2022-02-21 00:00:00 Completed [facility] Remdesivir 2022-02-21 00:00:00 Completed [facility] Remdesivir 2022-02-21 00:00:00 Completed [facility] 2022-02-21 00:00:00 Completed [facility] 2022-02-21 00:00:00 Completed [facility] 2022-02-21 00:00:00 Completed [facility] Remdesivir 2022-02-21 00:00:00 Completed [facility] Remdesivir 2022-02-21 00:00:00 Completed [facility] Remdesivir 2022-02-20 00:00:00 Completed [facility] Remdesivir 2022-02-20 00:00:00 Completed [facility] Remdesivir 2022-02-20 00:00:00 Completed [facility] Remdesivir 2022-02-20 00:00:00 Completed [facility] Remdesivir 2022-02-20 00:00:00 Completed [facility] Remdesivir 2022-02-20 00:00:00 Completed [facility] Remdesivir 2022-02-20 00:00:00 Completed [facility] Remdesivir 2022-02-20 00:00:00 Completed [facility] Remdesivir 2022-02-20 00:00:00 Completed [facility] Remdesivir 2022-02-20 00:00:00 Completed [facility] Remdesivir 2022-02-20 00:00:00 Completed [facility] Remdesivir 2022-02-20 00:00:00 Completed [facility] Remdesivir 2022-02-20 00:00:00 Completed [facility] Remdesivir 2022-02-20 00:00:00 Completed [facility] Remdesivir 2022-02-20 00:00:00 Completed [facility] Remdesivir 2022-02-20 00:00:00 Completed [facility] Remdesivir 2022-02-20 00:00:00 Completed [facility] Remdesivir 2022-02-20 00:00:00 Completed [facility] Remdesivir 2022-02-20 00:00:00 Completed [facility] Remdesivir 2022-02-20 00:00:00 Completed [facility] Remdesivir 2022-02-20 00:00:00 Completed [facility] Remdesivir 2022-02-20 00:00:00 Completed [facility] Remdesivir 2022-02-20 00:00:00 Completed [facility] Remdesivir 2022-02-20 00:00:00 Completed [facility] Remdesivir 2022-02-20 00:00:00 Completed [facility] Remdesivir 2022-02-20 00:00:00 Completed [facility] Influenza High Dose Quad 2021-12-18 00:00:00 Completed [facility] Influenza High Dose Quad 2021-12-18 00:00:00 Completed [facility] Influenza High Dose Quad 2021-12-18 00:00:00 Completed [facility] Influenza High Dose Quad 2021-12-18 00:00:00 Completed [facility] Influenza High Dose Quad 2021-12-18 00:00:00 Completed [facility] Influenza High Dose Quad 2021-12-18 00:00:00 Completed [facility] Influenza High Dose Quad 2021-12-18 00:00:00 Completed [facility] Influenza High Dose Quad 2021-12-18 00:00:00 Completed [facility] Influenza High Dose Quad 2021-12-18 00:00:00 Completed [facility] Influenza High Dose Quad 2021-12-18 00:00:00 Completed [facility] Influenza High Dose Quad 2021-12-18 00:00:00 Completed [facility] Influenza High Dose Quad 2021-12-18 00:00:00 Completed [facility] Influenza High Dose Quad 2021-12-18 00:00:00 Completed Influenza High Dose Quad 2021-12-18 00:00:00 Completed Influenza High Dose Quad 2021-12-18 00:00:00 Completed SARS-COV-2 COVID-19 MODERNA 0.25ML BOOSTER VACCINE 2021-02-09 00:00:00 Completed [facility] SARS-COV-2 COVID-19 MODERNA 0.25ML BOOSTER VACCINE 2021-02-09 00:00:00 Completed [facility] SARS-COV-2 COVID-19 MODERNA 0.25ML BOOSTER VACCINE 2021-02-09 00:00:00 Completed [facility] SARS-COV-2 COVID-19 MODERNA 0.25ML BOOSTER VACCINE 2021-02-09 00:00:00 Completed [facility] SARS-COV-2 COVID-19 MODERNA 0.25ML BOOSTER VACCINE 2021-02-09 00:00:00 Completed [facility] SARS-COV-2 COVID-19 MODERNA 0.25ML BOOSTER VACCINE 2021-02-09 00:00:00 Completed [facility] SARS-COV-2 COVID-19 MODERNA 0.25ML BOOSTER VACCINE 2021-02-09 00:00:00 Completed [facility] SARS-COV-2 COVID-19 MODERNA 0.25ML BOOSTER VACCINE 2021-02-09 00:00:00 Completed [facility] SARS-COV-2 COVID-19 MODERNA 0.25ML BOOSTER VACCINE 2021-02-09 00:00:00 Completed [facility] SARS-COV-2 COVID-19 MODERNA 0.25ML BOOSTER VACCINE 2021-02-09 00:00:00 Completed [facility] SARS-COV-2 COVID-19 MODERNA 0.25ML BOOSTER VACCINE 2021-02-09 00:00:00 Completed [facility] SARS-COV-2 COVID-19 MODERNA 0.25ML BOOSTER VACCINE 2021-02-09 00:00:00 Completed [facility] SARS-COV-2 COVID-19 MODERNA 0.25ML BOOSTER VACCINE 2021-02-09 00:00:00 Completed [facility] SARS-COV-2 COVID-19 MODERNA 0.25ML BOOSTER VACCINE 2021-02-09 00:00:00 Completed [facility] SARS-COV-2 COVID-19 MODERNA 0.25ML BOOSTER VACCINE 2021-02-09 00:00:00 Completed [facility] SARS-COV-2 COVID-19 MODERNA 0.25ML BOOSTER VACCINE 2021-02-09 00:00:00 Completed [facility] SARS-COV-2 COVID-19 MODERNA 0.25ML BOOSTER VACCINE 2021-02-09 00:00:00 Completed [facility] SARS-COV-2 COVID-19 MODERNA 0.25ML BOOSTER VACCINE 2021-02-09 00:00:00 Completed [facility] SARS-COV-2 COVID-19 MODERNA 0.25ML BOOSTER VACCINE 2021-02-09 00:00:00 Completed [facility] SARS-COV-2 COVID-19 MODERNA 0.25ML BOOSTER VACCINE 2021-02-09 00:00:00 Completed [facility] SARS-COV-2 COVID-19 MODERNA 0.25ML BOOSTER VACCINE 2021-02-09 00:00:00 Completed [facility] SARS-COV-2 COVID-19 MODERNA 0.25ML BOOSTER VACCINE 2021-02-09 00:00:00 Completed [facility] SARS-COV-2 COVID-19 MODERNA 0.25ML BOOSTER VACCINE 2021-02-09 00:00:00 Completed [facility] SARS-COV-2 COVID-19 MODERNA BOOSTER VACCINE 2021-02-09 00:00:00 Completed [facility] SARS-COV-2 COVID-19 MODERNA BOOSTER VACCINE 2021-02-09 00:00:00 Completed [facility] SARS-COV-2 COVID-19 MODERNA BOOSTER VACCINE 2021-02-09 00:00:00 Completed [facility] SARS-COV-2 COVID-19 MODERNA BOOSTER VACCINE 2021-02-09 00:00:00 Completed [facility] SARS-COV-2 COVID-19 MODERNA BOOSTER VACCINE 2021-02-09 00:00:00 Completed [facility] SARS-COV-2 COVID-19 MODERNA 0.25ML BOOSTER VACCINE 2021-02-09 00:00:00 Completed [facility] SARS-COV-2 COVID-19 MODERNA 0.25ML BOOSTER VACCINE 2021-02-09 00:00:00 Completed [facility] SARS-COV-2 COVID-19 MODERNA 0.25ML BOOSTER VACCINE 2021-02-09 00:00:00 Completed [facility] SARS-COV-2 COVID-19 MODERNA 0.25ML BOOSTER VACCINE 2021-02-09 00:00:00 Completed [facility] SARS-COV-2 COVID-19 MODERNA 0.25ML BOOSTER VACCINE 2021-02-09 00:00:00 Completed [facility] Influenza High Dose Quad 2021-01-09 00:00:00 Completed [facility] Influenza High Dose Quad 2021-01-09 00:00:00 Completed [facility] Influenza High Dose Quad 2021-01-09 00:00:00 Completed [facility] Influenza High Dose Quad 2021-01-09 00:00:00 Completed [facility] Influenza High Dose Quad 2021-01-09 00:00:00 Completed [facility] Influenza High Dose Quad 2021-01-09 00:00:00 Completed [facility] Influenza High Dose Quad 2021-01-09 00:00:00 Completed [facility] Influenza High Dose Quad 2021-01-09 00:00:00 Completed [facility] Influenza High Dose Quad 2021-01-09 00:00:00 Completed [facility] Influenza High Dose Quad 2021-01-09 00:00:00 Completed [facility] Influenza High Dose Quad 2021-01-09 00:00:00 Completed [facility] Influenza High Dose Quad 2021-01-09 00:00:00 Completed [facility] Influenza High Dose Quad 2021-01-09 00:00:00 Completed [facility] Influenza High Dose Quad 2021-01-09 00:00:00 Completed Influenza High Dose Quad 2021-01-09 00:00:00 Completed Influenza High Dose Quad 2021-01-09 00:00:00 Completed Influenza High Dose 2020-12-16 00:00:00 Completed [facility] Influenza High Dose 2020-12-16 00:00:00 Completed [facility] Influenza High Dose 2020-12-16 00:00:00 Completed [facility] Influenza High Dose 2020-12-16 00:00:00 Completed [facility] Influenza High Dose 2020-12-16 00:00:00 Completed [facility] Influenza High Dose 2020-12-16 00:00:00 Completed [facility] Influenza High Dose 2020-12-16 00:00:00 Completed [facility] Influenza High Dose 2020-12-16 00:00:00 Completed [facility] Influenza High Dose 2020-12-16 00:00:00 Completed [facility] Influenza High Dose 2020-12-16 00:00:00 Completed [facility] Influenza High Dose 2020-12-16 00:00:00 Completed [facility] Influenza High Dose 2020-12-16 00:00:00 Completed [facility] Influenza High Dose 2020-12-16 00:00:00 Completed [facility] Influenza High Dose 2020-12-16 00:00:00 Completed [facility] Influenza High Dose 2020-12-16 00:00:00 Completed [facility] Influenza High Dose 2020-12-16 00:00:00 Completed [facility] Influenza High Dose 2020-12-16 00:00:00 Completed [facility] Influenza High Dose 2020-12-16 00:00:00 Completed [facility] Influenza High Dose 2020-12-16 00:00:00 Completed [facility] Influenza High Dose 2020-12-16 00:00:00 Completed [facility] Influenza High Dose 2020-12-16 00:00:00 Completed [facility] Influenza, High-Dose, Trivalent, PF (FLUZONE) 2020-12-16 00:00:00 Completed Influenza, High-Dose, Trivalent, PF (FLUZONE) 2020-12-16 00:00:00 Completed Influenza, High-Dose, Trivalent, PF (FLUZONE) 2020-12-16 00:00:00 Completed Influenza High Dose 2020-12-16 00:00:00 Completed [facility] Influenza High Dose 2020-12-16 00:00:00 Completed [facility] Influenza High Dose 2020-12-16 00:00:00 Completed [facility] Influenza High Dose 2020-12-16 00:00:00 Completed [facility] Influenza High Dose 2020-12-16 00:00:00 Completed [facility] Influenza High Dose 2020-12-16 00:00:00 Completed [facility] Influenza High Dose 2020-12-16 00:00:00 Completed [facility] Influenza High Dose 2020-12-16 00:00:00 Completed [facility] Influenza High Dose 2020-12-16 00:00:00 Completed [facility] Influenza High Dose 2020-12-16 00:00:00 Completed [facility] TDAP 2020-08-21 00:00:00 Completed [facility] TDAP 2020-08-21 00:00:00 Completed [facility] TDAP 2020-08-21 00:00:00 Completed [facility] TDAP 2020-08-21 00:00:00 Completed [facility] TDAP 2020-08-21 00:00:00 Completed [facility] TDAP 2020-08-21 00:00:00 Completed [facility] TDAP 2020-08-21 00:00:00 Completed [facility] TDAP 2020-08-21 00:00:00 Completed [facility] TDAP 2020-08-21 00:00:00 Completed [facility] TDAP 2020-08-21 00:00:00 Completed [facility] TDAP 2020-08-21 00:00:00 Completed [facility] TDAP 2020-08-21 00:00:00 Completed [facility] TDAP 2020-08-21 00:00:00 Completed [facility] TDAP 2020-08-21 00:00:00 Completed [facility] TDAP 2020-08-21 00:00:00 Completed [facility] TDAP 2020-08-21 00:00:00 Completed [facility] TDAP 2020-08-21 00:00:00 Completed [facility] TDAP 2020-08-20 00:00:00 Completed [facility] TDAP 2020-08-20 00:00:00 Completed [facility] TDAP 2020-08-20 00:00:00 Completed [facility] TDAP 2020-08-20 00:00:00 Completed [facility] TDAP 2020-08-20 00:00:00 Completed [facility] TDAP 2020-08-20 00:00:00 Completed [facility] TDAP 2020-08-20 00:00:00 Completed [facility] TDAP 2020-08-20 00:00:00 Completed [facility] TDAP 2020-08-20 00:00:00 Completed [facility] TDAP 2020-08-20 00:00:00 Completed [facility] TDAP 2020-08-20 00:00:00 Completed [facility] TDAP 2020-08-20 00:00:00 Completed [facility] TDAP 2020-08-20 00:00:00 Completed [facility] TDAP 2020-08-20 00:00:00 Completed [facility] TDAP 2020-08-20 00:00:00 Completed TDAP 2020-08-20 00:00:00 Completed TDAP 2020-08-20 00:00:00 Completed SARS-COV-2 COVID-19 MODERNA 12+ YRS VACCINE 2020-05-19 00:00:00 Completed [facility] SARS-COV-2 COVID-19 MODERNA 12+ YRS VACCINE 2020-05-19 00:00:00 Completed [facility] SARS-COV-2 COVID-19 MODERNA 12+ YRS VACCINE 2020-05-19 00:00:00 Completed [facility] SARS-COV-2 COVID-19 MODERNA 12+ YRS VACCINE 2020-05-19 00:00:00 Completed [facility] SARS-COV-2 COVID-19 MODERNA 12+ YRS VACCINE 2020-05-19 00:00:00 Completed [facility] SARS-COV-2 COVID-19 MODERNA 12+ YRS VACCINE 2020-05-19 00:00:00 Completed [facility] SARS-COV-2 COVID-19 MODERNA 12+ YRS VACCINE 2020-05-19 00:00:00 Completed [facility] SARS-COV-2 COVID-19 MODERNA 12+ YRS VACCINE 2020-05-19 00:00:00 Completed [facility] SARS-COV-2 COVID-19 MODERNA 12+ YRS VACCINE 2020-05-19 00:00:00 Completed [facility] SARS-COV-2 COVID-19 MODERNA 12+ YRS VACCINE 2020-05-19 00:00:00 Completed [facility] SARS-COV-2 COVID-19 MODERNA 12+ YRS VACCINE 2020-05-19 00:00:00 Completed [facility] SARS-COV-2 COVID-19 MODERNA 12+ YRS VACCINE 2020-05-19 00:00:00 Completed [facility] SARS-COV-2 COVID-19 MODERNA 12+ YRS VACCINE 2020-05-19 00:00:00 Completed [facility] SARS-COV-2 COVID-19 MODERNA 12+ YRS VACCINE 2020-05-19 00:00:00 Completed [facility] SARS-COV-2 COVID-19 MODERNA 12+ YRS VACCINE 2020-05-19 00:00:00 Completed [facility] SARS-COV-2 COVID-19 MODERNA 12+ YRS VACCINE 2020-05-19 00:00:00 Completed [facility] SARS-COV-2 COVID-19 MODERNA 12+ YRS VACCINE 2020-05-19 00:00:00 Completed [facility] SARS-COV-2 COVID-19 MODERNA 12+ YRS VACCINE 2020-05-19 00:00:00 Completed [facility] SARS-COV-2 COVID-19 MODERNA 12+ YRS VACCINE 2020-05-19 00:00:00 Completed [facility] SARS-COV-2 COVID-19 MODERNA 12+ YRS VACCINE 2020-05-19 00:00:00 Completed [facility] SARS-COV-2 COVID-19 MODERNA 12+ YRS VACCINE 2020-05-19 00:00:00 Completed [facility] SARS-COV-2 COVID-19 MODERNA 12+ YRS VACCINE 2020-05-19 00:00:00 Completed SARS-COV-2 COVID-19 MODERNA 12+ YRS VACCINE 2020-05-19 00:00:00 Completed SARS-COV-2 COVID-19 MODERNA 12+ YRS VACCINE 2020-05-19 00:00:00 Completed SARS-COV-2 COVID-19 MODERNA VACCINE 2020-05-19 00:00:00 Completed [facility] SARS-COV-2 COVID-19 MODERNA VACCINE 2020-05-19 00:00:00 Completed [facility] SARS-COV-2 COVID-19 MODERNA VACCINE 2020-05-19 00:00:00 Completed [facility] SARS-COV-2 COVID-19 MODERNA VACCINE 2020-05-19 00:00:00 Completed [facility] SARS-COV-2 COVID-19 MODERNA VACCINE 2020-05-19 00:00:00 Completed [facility] SARS-COV-2 COVID-19 MODERNA 12+ YRS VACCINE 2020-05-19 00:00:00 Completed [facility] SARS-COV-2 COVID-19 MODERNA 12+ YRS VACCINE 2020-05-19 00:00:00 Completed [facility] SARS-COV-2 COVID-19 MODERNA 12+ YRS VACCINE 2020-05-19 00:00:00 Completed [facility] SARS-COV-2 COVID-19 MODERNA 12+ YRS VACCINE 2020-05-19 00:00:00 Completed [facility] SARS-COV-2 COVID-19 MODERNA 12+ YRS VACCINE 2020-05-19 00:00:00 Completed [facility] SARS-COV-2 COVID-19 MODERNA 12+ YRS VACCINE 2020-04-21 00:00:00 Completed [facility] SARS-COV-2 COVID-19 MODERNA 12+ YRS VACCINE 2020-04-21 00:00:00 Completed [facility] SARS-COV-2 COVID-19 MODERNA 12+ YRS VACCINE 2020-04-21 00:00:00 Completed [facility] SARS-COV-2 COVID-19 MODERNA 12+ YRS VACCINE 2020-04-21 00:00:00 Completed [facility] SARS-COV-2 COVID-19 MODERNA 12+ YRS VACCINE 2020-04-21 00:00:00 Completed [facility] SARS-COV-2 COVID-19 MODERNA 12+ YRS VACCINE 2020-04-21 00:00:00 Completed [facility] SARS-COV-2 COVID-19 MODERNA 12+ YRS VACCINE 2020-04-21 00:00:00 Completed [facility] SARS-COV-2 COVID-19 MODERNA 12+ YRS VACCINE 2020-04-21 00:00:00 Completed [facility] SARS-COV-2 COVID-19 MODERNA 12+ YRS VACCINE 2020-04-21 00:00:00 Completed [facility] SARS-COV-2 COVID-19 MODERNA 12+ YRS VACCINE 2020-04-21 00:00:00 Completed [facility] SARS-COV-2 COVID-19 MODERNA 12+ YRS VACCINE 2020-04-21 00:00:00 Completed [facility] SARS-COV-2 COVID-19 MODERNA 12+ YRS VACCINE 2020-04-21 00:00:00 Completed [facility] SARS-COV-2 COVID-19 MODERNA 12+ YRS VACCINE 2020-04-21 00:00:00 Completed [facility] SARS-COV-2 COVID-19 MODERNA 12+ YRS VACCINE 2020-04-21 00:00:00 Completed [facility] SARS-COV-2 COVID-19 MODERNA 12+ YRS VACCINE 2020-04-21 00:00:00 Completed [facility] SARS-COV-2 COVID-19 MODERNA 12+ YRS VACCINE 2020-04-21 00:00:00 Completed [facility] SARS-COV-2 COVID-19 MODERNA 12+ YRS VACCINE 2020-04-21 00:00:00 Completed [facility] SARS-COV-2 COVID-19 MODERNA 12+ YRS VACCINE 2020-04-21 00:00:00 Completed [facility] SARS-COV-2 COVID-19 MODERNA 12+ YRS VACCINE 2020-04-21 00:00:00 Completed [facility] SARS-COV-2 COVID-19 MODERNA 12+ YRS VACCINE 2020-04-21 00:00:00 Completed [facility] SARS-COV-2 COVID-19 MODERNA 12+ YRS VACCINE 2020-04-21 00:00:00 Completed [facility] SARS-COV-2 COVID-19 MODERNA 12+ YRS VACCINE 2020-04-21 00:00:00 Completed [facility] SARS-COV-2 COVID-19 MODERNA 12+ YRS VACCINE 2020-04-21 00:00:00 Completed [facility] SARS-COV-2 COVID-19 MODERNA VACCINE 2020-04-21 00:00:00 Completed [facility] SARS-COV-2 COVID-19 MODERNA VACCINE 2020-04-21 00:00:00 Completed [facility] SARS-COV-2 COVID-19 MODERNA VACCINE 2020-04-21 00:00:00 Completed [facility] SARS-COV-2 COVID-19 MODERNA VACCINE 2020-04-21 00:00:00 Completed [facility] SARS-COV-2 COVID-19 MODERNA VACCINE 2020-04-21 00:00:00 Completed [facility] SARS-COV-2 COVID-19 MODERNA 12+ YRS VACCINE 2020-04-21 00:00:00 Completed [facility] SARS-COV-2 COVID-19 MODERNA 12+ YRS VACCINE 2020-04-21 00:00:00 Completed [facility] SARS-COV-2 COVID-19 MODERNA 12+ YRS VACCINE 2020-04-21 00:00:00 Completed [facility] SARS-COV-2 COVID-19 MODERNA 12+ YRS VACCINE 2020-04-21 00:00:00 Completed [facility] SARS-COV-2 COVID-19 MODERNA 12+ YRS VACCINE 2020-04-21 00:00:00 Completed [facility] Influenza High Dose Quad 2020-01-11 00:00:00 Completed [facility] Influenza High Dose Quad 2020-01-11 00:00:00 Completed [facility] Influenza High Dose Quad 2020-01-11 00:00:00 Completed [facility] Influenza High Dose Quad 2020-01-11 00:00:00 Completed [facility] Influenza High Dose Quad 2020-01-11 00:00:00 Completed [facility] Influenza High Dose Quad 2020-01-11 00:00:00 Completed [facility] Influenza High Dose Quad 2020-01-11 00:00:00 Completed [facility] Influenza High Dose Quad 2020-01-11 00:00:00 Completed [facility] Influenza High Dose Quad 2020-01-11 00:00:00 Completed [facility] Influenza High Dose Quad 2020-01-11 00:00:00 Completed [facility] Influenza High Dose Quad 2020-01-11 00:00:00 Completed [facility] Influenza High Dose Quad 2020-01-11 00:00:00 Completed [facility] Influenza High Dose Quad 2020-01-11 00:00:00 Completed [facility] Influenza High Dose Quad 2020-01-11 00:00:00 Completed [facility] Influenza High Dose Quad 2020-01-11 00:00:00 Completed [facility] Influenza High Dose Quad 2020-01-11 00:00:00 Completed [facility] Influenza High Dose Quad 2020-01-11 00:00:00 Completed [facility] Influenza High Dose Quad 2020-01-11 00:00:00 Completed [facility] Influenza High Dose Quad 2020-01-11 00:00:00 Completed [facility] Influenza High Dose Quad 2020-01-11 00:00:00 Completed [facility] Influenza High Dose Quad 2020-01-11 00:00:00 Completed Influenza High Dose Quad 2020-01-11 00:00:00 Completed Influenza High Dose Quad 2020-01-11 00:00:00 Completed Influenza High Dose Quad 2020-01-11 00:00:00 Completed [facility] Influenza High Dose Quad 2020-01-11 00:00:00 Completed [facility] Influenza High Dose Quad 2020-01-11 00:00:00 Completed [facility] Influenza High Dose Quad 2020-01-11 00:00:00 Completed [facility] Influenza High Dose Quad 2020-01-11 00:00:00 Completed [facility] Influenza High Dose Quad 2020-01-11 00:00:00 Completed [facility] Influenza High Dose Quad 2020-01-11 00:00:00 Completed [facility] Influenza High Dose Quad 2020-01-11 00:00:00 Completed [facility] Influenza High Dose Quad 2020-01-11 00:00:00 Completed [facility] Influenza High Dose Quad 2020-01-11 00:00:00 Completed [facility] Influenza High Dose 2018-12-17 00:00:00 Completed [facility] Influenza High Dose 2018-12-17 00:00:00 Completed [facility] Influenza High Dose 2018-12-17 00:00:00 Completed [facility] Influenza High Dose 2018-12-17 00:00:00 Completed [facility] Influenza High Dose 2018-12-17 00:00:00 Completed [facility] Influenza High Dose 2018-12-17 00:00:00 Completed [facility] Influenza High Dose 2018-12-17 00:00:00 Completed [facility] Influenza High Dose 2018-12-17 00:00:00 Completed [facility] Influenza High Dose 2018-12-17 00:00:00 Completed [facility] Influenza High Dose 2018-12-17 00:00:00 Completed [facility] Influenza High Dose 2018-12-17 00:00:00 Completed [facility] Influenza High Dose 2018-12-17 00:00:00 Completed [facility] Influenza High Dose 2018-12-17 00:00:00 Completed [facility] Influenza High Dose 2018-12-17 00:00:00 Completed [facility] Influenza High Dose 2018-12-17 00:00:00 Completed [facility] Influenza High Dose 2018-12-17 00:00:00 Completed [facility] Influenza High Dose 2018-12-17 00:00:00 Completed [facility] Influenza High Dose 2018-12-17 00:00:00 Completed [facility] Influenza High Dose 2018-12-17 00:00:00 Completed [facility] Influenza High Dose 2018-12-17 00:00:00 Completed [facility] Influenza, High-Dose, Trivalent, PF (FLUZONE) 2018-12-17 00:00:00 Completed Influenza, High-Dose, Trivalent, PF (FLUZONE) 2018-12-17 00:00:00 Completed Influenza, High-Dose, Trivalent, PF (FLUZONE) 2018-12-17 00:00:00 Completed Influenza High Dose 2018-12-17 00:00:00 Completed [facility] Influenza High Dose 2018-12-17 00:00:00 Completed [facility] Influenza High Dose 2018-12-17 00:00:00 Completed [facility] Influenza High Dose 2018-12-17 00:00:00 Completed [facility] Influenza High Dose 2018-12-17 00:00:00 Completed [facility] Influenza High Dose 2018-12-17 00:00:00 Completed [facility] Influenza High Dose 2018-12-17 00:00:00 Completed [facility] Influenza High Dose 2018-12-17 00:00:00 Completed [facility] Influenza High Dose 2018-12-17 00:00:00 Completed [facility] Influenza High Dose 2018-12-17 00:00:00 Completed [facility] Zoster Vaccine Recombinant 2018-06-19 00:00:00 Completed [facility] Zoster Vaccine Recombinant 2018-06-19 00:00:00 Completed [facility] Zoster Vaccine Recombinant 2018-06-19 00:00:00 Completed [facility] Zoster Vaccine Recombinant 2018-06-19 00:00:00 Completed [facility] Zoster Vaccine Recombinant 2018-06-19 00:00:00 Completed [facility] Zoster Vaccine Recombinant 2018-06-19 00:00:00 Completed [facility] Zoster Vaccine Recombinant 2018-06-19 00:00:00 Completed [facility] Zoster Vaccine Recombinant 2018-06-19 00:00:00 Completed [facility] Zoster Vaccine Recombinant 2018-06-19 00:00:00 Completed [facility] Zoster Vaccine Recombinant 2018-06-19 00:00:00 Completed [facility] Zoster Vaccine Recombinant 2018-06-19 00:00:00 Completed [facility] Zoster Vaccine Recombinant 2018-06-19 00:00:00 Completed [facility] Zoster Vaccine Recombinant 2018-06-19 00:00:00 Completed [facility] Zoster Vaccine Recombinant 2018-06-19 00:00:00 Completed [facility] Zoster Vaccine Recombinant 2018-06-19 00:00:00 Completed [facility] Zoster Vaccine Recombinant 2018-06-19 00:00:00 Completed [facility] Zoster Vaccine Recombinant 2018-06-19 00:00:00 Completed [facility] Zoster Vaccine Recombinant 2018-06-19 00:00:00 Completed [facility] Zoster Vaccine Recombinant 2018-06-19 00:00:00 Completed [facility] Zoster Vaccine Recombinant 2018-06-19 00:00:00 Completed [facility] Zoster Vaccine Recombinant 2018-06-19 00:00:00 Completed [facility] Zoster Vaccine Recombinant 2018-06-19 00:00:00 Completed Zoster Vaccine Recombinant 2018-06-19 00:00:00 Completed Zoster Vaccine Recombinant 2018-06-19 00:00:00 Completed Zoster Vaccine Recombinant 2018-06-19 00:00:00 Completed [facility] Zoster Vaccine Recombinant 2018-06-19 00:00:00 Completed [facility] Zoster Vaccine Recombinant 2018-06-19 00:00:00 Completed [facility] Zoster Vaccine Recombinant 2018-06-19 00:00:00 Completed [facility] Zoster Vaccine Recombinant 2018-06-19 00:00:00 Completed [facility] Zoster Vaccine Recombinant 2018-06-19 00:00:00 Completed [facility] Zoster Vaccine Recombinant 2018-06-19 00:00:00 Completed [facility] Zoster Vaccine Recombinant 2018-06-19 00:00:00 Completed [facility] Zoster Vaccine Recombinant 2018-06-19 00:00:00 Completed [facility] Zoster Vaccine Recombinant 2018-06-19 00:00:00 Completed [facility] Influenza High Dose 2018-01-14 00:00:00 Completed [facility] Influenza High Dose 2018-01-14 00:00:00 Completed [facility] Influenza High Dose 2018-01-14 00:00:00 Completed [facility] Influenza High Dose 2018-01-14 00:00:00 Completed [facility] Influenza High Dose 2018-01-14 00:00:00 Completed [facility] Influenza High Dose 2018-01-14 00:00:00 Completed [facility] Influenza High Dose 2018-01-14 00:00:00 Completed [facility] Influenza High Dose 2018-01-14 00:00:00 Completed [facility] Influenza High Dose 2018-01-14 00:00:00 Completed [facility] Influenza High Dose 2018-01-14 00:00:00 Completed [facility] Influenza High Dose 2018-01-14 00:00:00 Completed [facility] Influenza High Dose 2018-01-14 00:00:00 Completed [facility] Influenza High Dose 2018-01-14 00:00:00 Completed [facility] Influenza High Dose 2018-01-14 00:00:00 Completed [facility] Influenza High Dose 2018-01-14 00:00:00 Completed [facility] Influenza High Dose 2018-01-14 00:00:00 Completed [facility] Influenza High Dose 2018-01-14 00:00:00 Completed [facility] Influenza High Dose 2018-01-14 00:00:00 Completed [facility] Influenza High Dose 2018-01-14 00:00:00 Completed [facility] Influenza High Dose 2018-01-14 00:00:00 Completed [facility] Influenza, High-Dose, Trivalent, PF (FLUZONE) 2018-01-14 00:00:00 Completed Influenza, High-Dose, Trivalent, PF (FLUZONE) 2018-01-14 00:00:00 Completed Influenza, High-Dose, Trivalent, PF (FLUZONE) 2018-01-14 00:00:00 Completed Influenza High Dose 2018-01-14 00:00:00 Completed [facility] Influenza High Dose 2018-01-14 00:00:00 Completed [facility] Influenza High Dose 2018-01-14 00:00:00 Completed [facility] Influenza High Dose 2018-01-14 00:00:00 Completed [facility] Influenza High Dose 2018-01-14 00:00:00 Completed [facility] Influenza High Dose 2018-01-14 00:00:00 Completed [facility] Influenza High Dose 2018-01-14 00:00:00 Completed [facility] Influenza High Dose 2018-01-14 00:00:00 Completed [facility] Influenza High Dose 2018-01-14 00:00:00 Completed [facility] Influenza High Dose 2018-01-14 00:00:00 Completed [facility] Zoster Vaccine Recombinant 2017-12-29 00:00:00 Completed [facility] Zoster Vaccine Recombinant 2017-12-29 00:00:00 Completed [facility] Zoster Vaccine Recombinant 2017-12-29 00:00:00 Completed [facility] Zoster Vaccine Recombinant 2017-12-29 00:00:00 Completed [facility] Zoster Vaccine Recombinant 2017-12-29 00:00:00 Completed [facility] Zoster Vaccine Recombinant 2017-12-29 00:00:00 Completed [facility] Zoster Vaccine Recombinant 2017-12-29 00:00:00 Completed [facility] Zoster Vaccine Recombinant 2017-12-29 00:00:00 Completed [facility] Zoster Vaccine Recombinant 2017-12-29 00:00:00 Completed [facility] Zoster Vaccine Recombinant 2017-12-29 00:00:00 Completed [facility] Zoster Vaccine Recombinant 2017-12-29 00:00:00 Completed [facility] Zoster Vaccine Recombinant 2017-12-29 00:00:00 Completed [facility] Zoster Vaccine Recombinant 2017-12-29 00:00:00 Completed [facility] Zoster Vaccine Recombinant 2017-12-29 00:00:00 Completed [facility] Zoster Vaccine Recombinant 2017-12-29 00:00:00 Completed [facility] Zoster Vaccine Recombinant 2017-12-29 00:00:00 Completed [facility] Zoster Vaccine Recombinant 2017-12-29 00:00:00 Completed [facility] Zoster Vaccine Recombinant 2017-12-29 00:00:00 Completed [facility] Zoster Vaccine Recombinant 2017-12-29 00:00:00 Completed [facility] Zoster Vaccine Recombinant 2017-12-29 00:00:00 Completed [facility] Zoster Vaccine Recombinant 2017-12-29 00:00:00 Completed Zoster Vaccine Recombinant 2017-12-29 00:00:00 Completed Zoster Vaccine Recombinant 2017-12-29 00:00:00 Completed Zoster Vaccine Recombinant 2017-12-29 00:00:00 Completed [facility] Zoster Vaccine Recombinant 2017-12-29 00:00:00 Completed [facility] Zoster Vaccine Recombinant 2017-12-29 00:00:00 Completed [facility] Zoster Vaccine Recombinant 2017-12-29 00:00:00 Completed [facility] Zoster Vaccine Recombinant 2017-12-29 00:00:00 Completed [facility] Zoster Vaccine Recombinant 2017-12-29 00:00:00 Completed [facility] Zoster Vaccine Recombinant 2017-12-29 00:00:00 Completed [facility] Zoster Vaccine Recombinant 2017-12-29 00:00:00 Completed [facility] Zoster Vaccine Recombinant 2017-12-29 00:00:00 Completed [facility] Zoster Vaccine Recombinant 2017-12-29 00:00:00 Completed [facility] Influenza High Dose 2017-01-29 00:00:00 Completed [facility] Influenza High Dose 2017-01-29 00:00:00 Completed [facility] Influenza High Dose 2017-01-29 00:00:00 Completed [facility] Influenza High Dose 2017-01-29 00:00:00 Completed [facility] Influenza High Dose 2017-01-29 00:00:00 Completed [facility] Influenza High Dose 2017-01-29 00:00:00 Completed [facility] Influenza High Dose 2017-01-29 00:00:00 Completed [facility] Influenza High Dose 2017-01-29 00:00:00 Completed [facility] Influenza High Dose 2017-01-29 00:00:00 Completed [facility] Influenza High Dose 2017-01-29 00:00:00 Completed [facility] Influenza High Dose 2017-01-29 00:00:00 Completed [facility] Influenza High Dose 2017-01-29 00:00:00 Completed [facility] Influenza High Dose 2017-01-29 00:00:00 Completed [facility] Influenza High Dose 2017-01-29 00:00:00 Completed [facility] Influenza High Dose 2017-01-29 00:00:00 Completed [facility] Influenza High Dose 2017-01-29 00:00:00 Completed [facility] Influenza High Dose 2017-01-29 00:00:00 Completed [facility] Influenza High Dose 2017-01-29 00:00:00 Completed [facility] Influenza High Dose 2017-01-29 00:00:00 Completed [facility] Influenza High Dose 2017-01-29 00:00:00 Completed [facility] Influenza, High-Dose, Trivalent, PF (FLUZONE) 2017-01-29 00:00:00 Completed Influenza, High-Dose, Trivalent, PF (FLUZONE) 2017-01-29 00:00:00 Completed Influenza, High-Dose, Trivalent, PF (FLUZONE) 2017-01-29 00:00:00 Completed Influenza High Dose 2017-01-29 00:00:00 Completed [facility] Influenza High Dose 2017-01-29 00:00:00 Completed [facility] Influenza High Dose 2017-01-29 00:00:00 Completed [facility] Influenza High Dose 2017-01-29 00:00:00 Completed [facility] Influenza High Dose 2017-01-29 00:00:00 Completed [facility] Influenza High Dose 2017-01-29 00:00:00 Completed [facility] Influenza High Dose 2017-01-29 00:00:00 Completed [facility] Influenza High Dose 2017-01-29 00:00:00 Completed [facility] Influenza High Dose 2017-01-29 00:00:00 Completed [facility] Influenza High Dose 2017-01-29 00:00:00 Completed [facility] Pneumococcal 13 Conjugate, PCV13 (Prevnar 13) 2016-03-07 00:00:00 Completed [facility] Pneumococcal 13 Conjugate, PCV13 (Prevnar 13) 2016-03-07 00:00:00 Completed [facility] Pneumococcal 13 Conjugate, PCV13 (Prevnar 13) 2016-03-07 00:00:00 Completed [facility] Pneumococcal 13 Conjugate, PCV13 (Prevnar 13) 2016-03-07 00:00:00 Completed [facility] Pneumococcal 13 Conjugate, PCV13 (Prevnar 13) 2016-03-07 00:00:00 Completed [facility] Pneumococcal 13 Conjugate, PCV13 (Prevnar 13) 2016-03-07 00:00:00 Completed [facility] Pneumococcal 13 Conjugate, PCV13 (Prevnar 13) 2016-03-07 00:00:00 Completed [facility] Pneumococcal 13 Conjugate, PCV13 (Prevnar 13) 2016-03-07 00:00:00 Completed [facility] Pneumococcal 13 Conjugate, PCV13 (Prevnar 13) 2016-03-07 00:00:00 Completed [facility] Pneumococcal 13 Conjugate, PCV13 (Prevnar 13) 2016-03-07 00:00:00 Completed [facility] Pneumococcal 13 Conjugate, PCV13 (Prevnar 13) 2016-03-07 00:00:00 Completed [facility] Pneumococcal 13 Conjugate, PCV13 (Prevnar 13) 2016-03-07 00:00:00 Completed [facility] Pneumococcal 13 Conjugate, PCV13 (Prevnar 13) 2016-03-07 00:00:00 Completed [facility] Pneumococcal 13 Conjugate, PCV13 (Prevnar 13) 2016-03-07 00:00:00 Completed [facility] Pneumococcal 13 Conjugate, PCV13 (Prevnar 13) 2016-03-07 00:00:00 Completed [facility] Pneumococcal 13 Conjugate, PCV13 (Prevnar 13) 2016-03-07 00:00:00 Completed [facility] Pneumococcal 13 Conjugate, PCV13 (Prevnar 13) 2016-03-07 00:00:00 Completed [facility] Pneumococcal 13 Conjugate, PCV13 (Prevnar 13) 2016-03-07 00:00:00 Completed [facility] Pneumococcal 13 Conjugate, PCV13 (Prevnar 13) 2016-03-07 00:00:00 Completed [facility] Pneumococcal 13 Conjugate, PCV13 (Prevnar 13) 2016-03-07 00:00:00 Completed [facility] Pneumococcal 13 Conjugate, PCV13 (Prevnar 13) 2016-03-07 00:00:00 Completed [facility] Pneumococcal 13 Conjugate, PCV13 (Prevnar 13) 2016-03-07 00:00:00 Completed [facility] Pneumococcal 13 Conjugate, PCV13 (Prevnar 13) 2016-03-07 00:00:00 Completed [facility] Pneumococcal 13 Conjugate, PCV13 (Prevnar 13) 2016-03-07 00:00:00 Completed [facility] Pneumococcal 13 Conjugate, PCV13 (Prevnar 13) 2016-03-07 00:00:00 Completed [facility] Pneumococcal 13 Conjugate, PCV13 (Prevnar 13) 2016-03-07 00:00:00 Completed [facility] Pneumococcal 13 Conjugate, PCV13 (Prevnar 13) 2016-03-07 00:00:00 Completed [facility] Pneumococcal 13 Conjugate, PCV13 (Prevnar 13) 2016-03-07 00:00:00 Completed [facility] Pneumococcal 13 Conjugate, PCV13 (Prevnar 13) 2016-03-07 00:00:00 Completed [facility] Pneumococcal 13 Conjugate, PCV13 (Prevnar 13) 2016-03-07 00:00:00 Completed [facility] Pneumococcal 13 Conjugate, PCV13 (Prevnar 13) 2016-03-07 00:00:00 Completed [facility] Pneumococcal 13 Conjugate, PCV13 (Prevnar 13) 2016-03-07 00:00:00 Completed [facility] Pneumococcal 13 Conjugate, PCV13 (Prevnar 13) 2016-03-07 00:00:00 Completed [facility] Influenza Virus Vaccine 2016-02-03 00:00:00 Completed [facility] Influenza Virus Vaccine 2016-02-03 00:00:00 Completed [facility] Influenza Virus Vaccine 2016-02-03 00:00:00 Completed [facility] Influenza Virus Vaccine 2016-02-03 00:00:00 Completed [facility] Influenza Virus Vaccine 2016-02-03 00:00:00 Completed [facility] Influenza Virus Vaccine 2016-02-03 00:00:00 Completed [facility] Influenza Virus Vaccine 2016-02-03 00:00:00 Completed [facility] Influenza Virus Vaccine 2016-02-03 00:00:00 Completed [facility] Influenza Virus Vaccine 2016-02-03 00:00:00 Completed [facility] Influenza Virus Vaccine 2016-02-03 00:00:00 Completed [facility] Influenza Virus Vaccine 2016-02-03 00:00:00 Completed [facility] Influenza Virus Vaccine 2016-02-03 00:00:00 Completed [facility] Influenza Virus Vaccine 2016-02-03 00:00:00 Completed [facility] Influenza Virus Vaccine 2016-02-03 00:00:00 Completed [facility] Influenza Virus Vaccine 2016-02-03 00:00:00 Completed [facility] Influenza Virus Vaccine 2016-02-03 00:00:00 Completed [facility] Influenza Virus Vaccine 2016-02-03 00:00:00 Completed [facility] Influenza Virus Vaccine 2016-02-03 00:00:00 Completed [facility] Influenza Virus Vaccine 2016-02-03 00:00:00 Completed [facility] Influenza Virus Vaccine 2016-02-03 00:00:00 Completed [facility] Influenza Virus Vaccine 2016-02-03 00:00:00 Completed Influenza Virus Vaccine 2016-02-03 00:00:00 Completed Influenza Virus Vaccine 2016-02-03 00:00:00 Completed Influenza Virus Vaccine 2016-02-03 00:00:00 Completed [facility] Influenza Virus Vaccine 2016-02-03 00:00:00 Completed [facility] Influenza Virus Vaccine 2016-02-03 00:00:00 Completed [facility] Influenza Virus Vaccine 2016-02-03 00:00:00 Completed [facility] Influenza Virus Vaccine 2016-02-03 00:00:00 Completed [facility] Influenza Virus Vaccine 2016-02-03 00:00:00 Completed [facility] Influenza Virus Vaccine 2016-02-03 00:00:00 Completed [facility] Influenza Virus Vaccine 2016-02-03 00:00:00 Completed [facility] Influenza Virus Vaccine 2016-02-03 00:00:00 Completed [facility] Influenza Virus Vaccine 2016-02-03 00:00:00 Completed [facility] TDAP 2010-03-01 00:00:00 Completed [facility] TDAP 2010-03-01 00:00:00 Completed [facility] TDAP 2010-03-01 00:00:00 Completed [facility] TDAP 2010-03-01 00:00:00 Completed [facility] TDAP 2010-03-01 00:00:00 Completed [facility] TDAP 2010-03-01 00:00:00 Completed [facility] TDAP 2010-03-01 00:00:00 Completed [facility] TDAP 2010-03-01 00:00:00 Completed [facility] TDAP 2010-03-01 00:00:00 Completed [facility] TDAP 2010-03-01 00:00:00 Completed [facility] TDAP 2010-03-01 00:00:00 Completed [facility] TDAP 2010-03-01 00:00:00 Completed [facility] TDAP 2010-03-01 00:00:00 Completed [facility] TDAP 2010-03-01 00:00:00 Completed [facility] TDAP 2010-03-01 00:00:00 Completed [facility] TDAP 2010-03-01 00:00:00 Completed [facility] TDAP 2010-03-01 00:00:00 Completed [facility] TDAP 2010-03-01 00:00:00 Completed [facility] TDAP 2010-03-01 00:00:00 Completed [facility] TDAP 2010-03-01 00:00:00 Completed [facility] TDAP 2010-03-01 00:00:00 Completed TDAP 2010-03-01 00:00:00 Completed TDAP 2010-03-01 00:00:00 Completed TDAP 2010-03-01 00:00:00 Completed [facility] TDAP 2010-03-01 00:00:00 Completed [facility] TDAP 2010-03-01 00:00:00 Completed [facility] TDAP 2010-03-01 00:00:00 Completed [facility] TDAP 2010-03-01 00:00:00 Completed [facility] TDAP 2010-03-01 00:00:00 Completed [facility] TDAP 2010-03-01 00:00:00 Completed [facility] TDAP 2010-03-01 00:00:00 Completed [facility] TDAP 2010-03-01 00:00:00 Completed [facility] TDAP 2010-03-01 00:00:00 Completed [facility] Pneumococcal Polysaccharide, PPSV23 (PNEUMOVAX) 2006-03-08 00:00:00 Completed [facility] Pneumococcal Polysaccharide, PPSV23 (PNEUMOVAX) 2006-03-08 00:00:00 Completed [facility] Pneumococcal Polysaccharide, PPSV23 (PNEUMOVAX) 2006-03-08 00:00:00 Completed [facility] Pneumococcal Polysaccharide, PPSV23 (PNEUMOVAX) 2006-03-08 00:00:00 Completed [facility] Pneumococcal Polysaccharide, PPSV23 (PNEUMOVAX) 2006-03-08 00:00:00 Completed [facility] Pneumococcal Polysaccharide, PPSV23 (PNEUMOVAX) 2006-03-08 00:00:00 Completed [facility] Pneumococcal Polysaccharide, PPSV23 (PNEUMOVAX) 2006-03-08 00:00:00 Completed [facility] Pneumococcal Polysaccharide, PPSV23 (PNEUMOVAX) 2006-03-08 00:00:00 Completed [facility] Pneumococcal Polysaccharide, PPSV23 (PNEUMOVAX) 2006-03-08 00:00:00 Completed [facility] Pneumococcal Polysaccharide, PPSV23 (PNEUMOVAX) 2006-03-08 00:00:00 Completed [facility] Pneumococcal Polysaccharide, PPSV23 (PNEUMOVAX) 2006-03-08 00:00:00 Completed [facility] Pneumococcal Polysaccharide, PPSV23 (PNEUMOVAX) 2006-03-08 00:00:00 Completed [facility] Pneumococcal Polysaccharide, PPSV23 (PNEUMOVAX) 2006-03-08 00:00:00 Completed [facility] Pneumococcal Polysaccharide, PPSV23 (PNEUMOVAX) 2006-03-08 00:00:00 Completed [facility] Pneumococcal Polysaccharide, PPSV23 (PNEUMOVAX) 2006-03-08 00:00:00 Completed [facility] Pneumococcal Polysaccharide, PPSV23 (PNEUMOVAX) 2006-03-08 00:00:00 Completed [facility] Pneumococcal Polysaccharide, PPSV23 (PNEUMOVAX) 2006-03-08 00:00:00 Completed [facility] Pneumococcal Polysaccharide, PPSV23 (PNEUMOVAX) 2006-03-08 00:00:00 Completed [facility] Pneumococcal Polysaccharide, PPSV23 (PNEUMOVAX) 2006-03-08 00:00:00 Completed [facility] Pneumococcal Polysaccharide, PPSV23 (PNEUMOVAX) 2006-03-08 00:00:00 Completed [facility] Pneumococcal Polysaccharide, PPSV23 (PNEUMOVAX) 2006-03-08 00:00:00 Completed Pneumococcal Polysaccharide, PPSV23 (PNEUMOVAX) 2006-03-08 00:00:00 Completed Pneumococcal Polysaccharide, PPSV23 (PNEUMOVAX) 2006-03-08 00:00:00 Completed Pneumococcal Polysaccharide, PPSV23 (PNEUMOVAX) 2006-03-08 00:00:00 Completed [facility] Pneumococcal Polysaccharide, PPSV23 (PNEUMOVAX) 2006-03-08 00:00:00 Completed [facility] Pneumococcal Polysaccharide, PPSV23 (PNEUMOVAX) 2006-03-08 00:00:00 Completed [facility] Pneumococcal Polysaccharide, PPSV23 (PNEUMOVAX) 2006-03-08 00:00:00 Completed [facility] Pneumococcal Polysaccharide, PPSV23 (PNEUMOVAX) 2006-03-08 00:00:00 Completed [facility] Pneumococcal Polysaccharide, PPSV23 (PNEUMOVAX) 2006-03-08 00:00:00 Completed [facility] Pneumococcal Polysaccharide, PPSV23 (PNEUMOVAX) 2006-03-08 00:00:00 Completed [facility] Pneumococcal Polysaccharide, PPSV23 (PNEUMOVAX) 2006-03-08 00:00:00 Completed [facility] Pneumococcal Polysaccharide, PPSV23 (PNEUMOVAX) 2006-03-08 00:00:00 Completed [facility] Pneumococcal Polysaccharide, PPSV23 (PNEUMOVAX) 2006-03-08 00:00:00 Completed [facility]:00 Com[facility] 00:00:00 Completed [facility] Zoster(Zostavax)([facility]) 2002-03-01 00:00:00 Completed [facility] Zoster(Zostavax)( [facility]) 2002-03-01 00:00:00 Completed [facility] 00:00:00 Completed [facility]01 00:00:00 Completed [facility] Zoster(Zostavax)([facility]) 2002-03-01 00:00:00 Completed [facility] Zoster(Zostavax)([facility]) 2002-03-01 00:00:00 Completed [facility] Zoster(Zostavax)([facility]) 2002-03-01 00:00:00 Completed [facility] Zoster(Zostavax)([facility]) 2002-03-01 00:00:00 Completed [facility] Zoster(Zostavax)([facility]) 2002-03-01 00:00:00 Completed [facility] Zoster(Zostavax)([facility]) 2002-03-01 00:00:00 Completed [facility] Zoster(Zostavax)([facility]) 2002-03-01 00:00:00 Completed [facility] Zoster(Zostavax)([facility]) 2002-03-01 00:00:00 Completed [facility] Zoster(Zostavax)([facility]) 2002-03-01 00:00:00 Completed [facility] Zoster(Zostavax)([facility]) 2002-03-01 00:00:00 Completed [facility] Zoster(Zostavax)([facility]) 2002-03-01 00:00:00 Completed [facility] Zoster(Zostavax)([facility]) 2002-03-01 00:00:00 Completed [facility] Zoster(Zostavax)([facility]) 2002-03-01 00:00:00 Completed [facility] Zoster(Zostavax)([facility]) 2002-03-01 00:00:00 Completed [facility] Zoster(Zostavax)([facility]) 2002-03-01 00:00:00 Completed Zoster(Zostavax)([facility]) 2002-03-01 00:00:00 Completed Zoster(Zostavax)([facility]) 2002-03-01 00:00:00 Completed Zoster(Zostavax)([facility]) 2002-03-01 00:00:00 Completed [facility] Zoster(Zostavax)([facility]) 2002-03-01 00:00:00 Completed [facility] Zoster(Zostavax)([facility]) 2002-03-01 00:00:00 Completed [facility] Zoster(Zostavax)([facility]) 2002-03-01 00:00:00 Completed [facility] Zoster(Zostavax)([facility]) 2002-03-01 00:00:00 Completed [facility] Zoster(Zostavax)([facility]) 2002-03-01 00:00:00 Completed [facility] Zoster(Zostavax)([facility]) 2002-03-01 00:00:00 Completed [facility] Zoster(Zostavax)([facility]) 2002-03-01 00:00:00 Completed [facility] Zoster(Zostavax)([facility]) 2002-03-01 00:00:00 Completed [facility] Zoster(Zostavax)([facility]) 2002-03-01 00:00:00 Completed [facility] Influenza Virus Vaccine Unknown Completed [facility] Pneumococcal Polysaccharide, PPSV23 (PNEUMOVAX) Unknown Completed [facility] Pneumococcal 13 Conjugate, PCV13 (Prevnar 13) Unknown Completed [facility] Influenza High Dose Unknown Completed [facility] Zoster(Zostavax)([facility]) Unknown Completed [facility] TDAP Unknown Completed [facility] Zoster Vaccine Recombinant Unknown Completed [facility] Influenza High Dose Quad Unknown Completed [facility] SARS-COV-2 COVID-19 MODERNA 12+ YRS VACCINE Unknown Completed [facility] SARS-COV-2 COVID-19 MODERNA 0.25ML BOOSTER VACCINE Unknown Completed [facility] [facility] Remdesivir Unknown Completed [facility] Remdesivir Unknown Completed [facility] Influenza Virus Vaccine Unknown Completed [facility] Pneumococcal Polysaccharide, PPSV23 (PNEUMOVAX) Unknown Completed [facility] Pneumococcal 13 Conjugate, PCV13 (Prevnar 13) Unknown Completed [facility] Influenza High Dose Unknown Completed [facility] Zoster(Zostavax)([facility]) Unknown Completed [facility] TDAP Unknown Completed [facility] Zoster Vaccine Recombinant Unknown Completed [facility] Influenza High Dose Quad Unknown Completed [facility] SARS-COV-2 COVID-19 MODERNA 12+ YRS VACCINE Unknown Completed [facility] SARS-COV-2 COVID-19 MODERNA 0.25ML BOOSTER VACCINE Unknown Completed [facility] Remdesivir Unknown Completed [facility] Remdesivir Unknown Completed [facility] Influenza High Dose Unknown Completed [facility] Zoster(Zostavax)( ingles) Unknown Completed [facility] TDAP Unknown Completed [facility] Zoster Vaccine Recombinant Unknown Completed [facility] Influenza High Dose Quad Unknown Completed [facility] SARS-COV-2 COVID-19 MODERNA 12+ YRS VACCINE Unknown Completed [facility] SARS-COV-2 COVID-19 MODERNA 0.25ML BOOSTER VACCINE Unknown Completed [facility] Remdesivir Unknown Completed [facility] Remdesivir Unknown Completed [facility] Influenza Virus Vaccine Unknown Completed [facility] Pneumococcal Polysaccharide, PPSV23 (PNEUMOVAX) Unknown Completed [facility] Pneumococcal 13 Conjugate, PCV13 (Prevnar 13) Unknown Completed [facility] Influenza High Dose Unknown Completed [facility] Zoster(Zostavax)( ingles) Unknown Completed [facility] TDAP Unknown Completed [facility] Zoster Vaccine Recombinant Unknown Completed [facility] Influenza High Dose Quad Unknown Completed [facility] SARS-COV-2 COVID-19 MODERNA 12+ YRS VACCINE Unknown Completed [facility] SARS-COV-2 COVID-19 MODERNA 0.25ML BOOSTER VACCINE Unknown Completed [facility] Remdesivir Unknown Completed [facility] Remdesivir Unknown Completed [facility] Influenza Virus Vaccine,quad Im,preserve Free 65+ (FLUAD) Unknown Completed [facility] Influenza Virus Vaccine,quad Im,preserve Free 65+ (FLUAD) Unknown Completed [facility] Influenza Virus Vaccine Unknown Completed [facility] Pneumococcal Polysaccharide, PPSV23 (PNEUMOVAX) Unknown Completed [facility] Pneumococcal 13 Conjugate, PCV13 (Prevnar 13) Unknown Completed [facility] Influenza High Dose Unknown Completed [facility] Zoster(Zostavax)( ingles) Unknown Completed [facility] TDAP Unknown Completed [facility] Zoster Vaccine Recombinant Unknown Completed [facility] Influenza High Dose Quad Unknown Completed [facility] SARS-COV-2 COVID-19 MODERNA 12+ YRS VACCINE Unknown Completed [facility] SARS-COV-2 COVID-19 MODERNA 0.25ML BOOSTER VACCINE Unknown Completed [facility] Remdesivir Unknown Completed [facility] Remdesivir Unknown Completed [facility] Influenza Virus Vaccine Unknown Completed [facility] Pneumococcal Polysaccharide, PPSV23 (PNEUMOVAX) Unknown Completed [facility] Pneumococcal 13 Conjugate, PCV13 (Prevnar 13) Unknown Completed [facility] Zoster(Zostavax)( waldo) Unknown Completed [facility] SARS-COV-2 COVID-19 MODERNA 0.25ML BOOSTER VACCINE Unknown Completed [facility] Remdesivir Unknown Completed [facility] Influenza Virus Vaccine,quad Im,preserve Free 65+ (FLUAD) Unknown Completed [facility] Influenza Virus Vaccine Unknown Completed [facility] Pneumococcal Polysaccharide, PPSV23 (PNEUMOVAX) Unknown Completed [facility] Pneumococcal 13 Conjugate, PCV13 (Prevnar 13) Unknown Completed [facility] Influenza High Dose Unknown Completed [facility] Zoster(Zostavax)( gingerles) Unknown Completed [facility] TDAP Unknown Completed [facility] Zoster Vaccine Recombinant Unknown Completed [facility] Influenza High Dose Quad Unknown Completed [facility] SARS-COV-2 COVID-19 MODERNA 12+ YRS VACCINE Unknown Completed [facility] SARS-COV-2 COVID-19 MODERNA 0.25ML BOOSTER VACCINE Unknown Completed [facility] Remdesivir Unknown Completed [facility] Remdesivir Unknown Completed [facility] Influenza Virus Vaccine,quad Im,preserve Free 65+ (FLUAD) Unknown Completed [facility] Influenza Virus Vaccine Unknown Completed [facility] Pneumococcal Polysaccharide, PPSV23 (PNEUMOVAX) Unknown Completed [facility] Pneumococcal 13 Conjugate, PCV13 (Prevnar 13) Unknown Completed [facility] Influenza Virus Vaccine Unknown Completed [facility] Pneumococcal Polysaccharide, PPSV23 (PNEUMOVAX) Unknown Completed [facility] Pneumococcal 13 Conjugate, PCV13 (Prevnar 13) Unknown Completed [facility] Influenza High Dose Unknown Completed [facility] Zoster(Zostavax)( ingles) Unknown Completed [facility] TDAP Unknown Completed [facility] Zoster Vaccine Recombinant Unknown Completed [facility] Influenza High Dose Quad Unknown Completed [facility] SARS-COV-2 COVID-19 MODERNA 12+ YRS VACCINE Unknown Completed [facility] SARS-COV-2 COVID-19 MODERNA 0.25ML BOOSTER VACCINE Unknown Completed [facility] Remdesivir Unknown Completed [facility] Remdesivir Unknown Completed [facility] Influenza Virus Vaccine,quad Im,preserve Free 65+ (FLUAD) Unknown Completed [facility] Influenza High Dose Unknown Completed [facility] Zoster(Zostavax)( inghector) Unknown Completed [facility] TDAP Unknown Completed [facility] Zoster Vaccine Recombinant Unknown Completed [facility] Influenza High Dose Quad Unknown Completed [facility] SARS-COV-2 COVID-19 MODERNA 12+ YRS VACCINE Unknown Completed [facility] SARS-COV-2 COVID-19 MODERNA 0.25ML BOOSTER VACCINE Unknown Completed [facility] Remdesivir Unknown Completed [facility] Remdesivir Unknown Completed [facility] Influenza Virus Vaccine,quad Im,preserve Free 65+ (FLUAD) Unknown Completed [facility] Influenza Virus Vaccine Unknown Completed [facility] Pneumococcal Polysaccharide, PPSV23 (PNEUMOVAX) Unknown Completed [facility] Pneumococcal 13 Conjugate, PCV13 (Prevnar 13) Unknown Completed [facility] Influenza Virus Vaccine Unknown Completed [facility] Pneumococcal Polysaccharide, PPSV23 (PNEUMOVAX) Unknown Completed [facility] Pneumococcal 13 Conjugate, PCV13 (Prevnar 13) Unknown Completed [facility] Influenza High Dose Unknown Completed [facility] Zoster(Zostavax)( ingles) Unknown Completed [facility] TDAP Unknown Completed [facility] Zoster Vaccine Recombinant Unknown Completed [facility] Influenza High Dose Quad Unknown Completed [facility] SARS-COV-2 COVID-19 MODERNA 12+ YRS VACCINE Unknown Completed [facility] SARS-COV-2 COVID-19 MODERNA 0.25ML BOOSTER VACCINE Unknown Completed [facility] Remdesivir Unknown Completed [facility] Remdesivir Unknown Completed [facility] Influenza Virus Vaccine,quad Im,preserve Free 65+ (FLUAD) Unknown Completed [facility] Influenza Virus Vaccine Unknown Completed [facility] Pneumococcal Polysaccharide, PPSV23 (PNEUMOVAX) Unknown Completed [facility] Pneumococcal 13 Conjugate, PCV13 (Prevnar 13) Unknown Completed [facility] Influenza High Dose Unknown Completed [facility] Zoster(Zostavax)(Sh ingles) Unknown Completed [facility] TDAP Unknown Completed [facility] Zoster Vaccine Recombinant Unknown Completed [facility] Influenza High Dose Quad Unknown Completed [facility] SARS-COV-2 COVID-19 MODERNA 12+ YRS VACCINE Unknown Completed [facility] SARS-COV-2 COVID-19 MODERNA 0.25ML BOOSTER VACCINE Unknown Completed [facility] Remdesivir Unknown Completed [facility] Remdesivir Unknown Completed [facility] Influenza Virus Vaccine,quad Im,preserve Free 65+ (FLUAD) Unknown Completed [facility] Influenza Virus Vaccine Unknown Completed [facility] Pneumococcal Polysaccharide, PPSV23 (PNEUMOVAX) Unknown Completed [facility] Pneumococcal 13 Conjugate, PCV13 (Prevnar 13) Unknown Completed [facility] Influenza High Dose Unknown Completed [facility] Zoster(Zostavax)(Sh ingles) Unknown Completed [facility] TDAP Unknown Completed [facility] Zoster Vaccine Recombinant Unknown Completed [facility] Influenza High Dose Quad Unknown Completed [facility] SARS-COV-2 COVID-19 MODERNA 12+ YRS VACCINE Unknown Completed [facility] SARS-COV-2 COVID-19 MODERNA 0.25ML BOOSTER VACCINE Unknown Completed [facility] Remdesivir Unknown Completed [facility] Remdesivir Unknown Completed [facility] Influenza Virus Vaccine,quad Im,preserve Free 65+ (FLUAD) Unknown Completed [facility] Influenza Virus Vaccine Unknown Completed [facility] Pneumococcal Polysaccharide, PPSV23 (PNEUMOVAX) Unknown Completed [facility] Pneumococcal 13 Conjugate, PCV13 (Prevnar 13) Unknown Completed [facility] Influenza High Dose Unknown Completed [facility] Zoster(Zostavax)(Sh ingles) Unknown Completed [facility] TDAP Unknown Completed [facility] Zoster Vaccine Recombinant Unknown Completed [facility] Influenza High Dose Quad Unknown Completed [facility] SARS-COV-2 COVID-19 MODERNA 12+ YRS VACCINE Unknown Completed [facility] SARS-COV-2 COVID-19 MODERNA 0.25ML BOOSTER VACCINE Unknown Completed [facility] Remdesivir Unknown Completed [facility] Remdesivir Unknown Completed [facility] Influenza Virus Vaccine,quad Im,preserve Free 65+ (FLUAD) Unknown Completed [facility] Influenza Virus Vaccine Unknown Completed [facility] Pneumococcal Polysaccharide, PPSV23 (PNEUMOVAX) Unknown Completed [facility] Pneumococcal 13 Conjugate, PCV13 (Prevnar 13) Unknown Completed [facility] Influenza High Dose Unknown Completed [facility] Zoster(Zostavax)( ingles) Unknown Completed [facility] TDAP Unknown Completed [facility] Zoster Vaccine Recombinant Unknown Completed [facility] Influenza High Dose Quad Unknown Completed [facility] SARS-COV-2 COVID-19 MODERNA 12+ YRS VACCINE Unknown Completed [facility] SARS-COV-2 COVID-19 MODERNA 0.25ML BOOSTER VACCINE Unknown Completed [facility] Remdesivir Unknown Completed [facility] Remdesivir Unknown Completed [facility] Influenza Virus Vaccine,quad Im,preserve Free 65+ (FLUAD) Unknown Completed [facility] Influenza Virus Vaccine Unknown Completed [facility] Pneumococcal Polysaccharide, PPSV23 (PNEUMOVAX) Unknown Completed [facility] Pneumococcal 13 Conjugate, PCV13 (Prevnar 13) Unknown Completed [facility] Influenza High Dose Unknown Completed [facility] Zoster(Zostavax)(Sh ingles) Unknown Completed [facility] TDAP Unknown Completed [facility] Zoster Vaccine Recombinant Unknown Completed [facility] Influenza High Dose Quad Unknown Completed [facility] SARS-COV-2 COVID-19 MODERNA 12+ YRS VACCINE Unknown Completed [facility] SARS-COV-2 COVID-19 MODERNA 0.25ML BOOSTER VACCINE Unknown Completed [facility] Remdesivir Unknown Completed [facility] Remdesivir Unknown Completed [facility] Influenza Virus Vaccine,quad Im,preserve Free 65+ (FLUAD) Unknown Completed [facility] Influenza Virus Vaccine Unknown Completed [facility] Pneumococcal Polysaccharide, PPSV23 (PNEUMOVAX) Unknown Completed [facility] Pneumococcal 13 Conjugate, PCV13 (Prevnar 13) Unknown Completed [facility] Zoster(Zostavax)(Sh ingles) Unknown Completed [facility] SARS-COV-2 COVID-19 MODERNA 0.25ML BOOSTER VACCINE Unknown Completed [facility] Remdesivir Unknown Completed [facility] Influenza Virus Vaccine,quad Im,preserve Free 65+ (FLUAD) Unknown Completed [facility] Influenza Virus Vaccine Unknown Completed [facility] Pneumococcal Polysaccharide, PPSV23 (PNEUMOVAX) Unknown Completed [facility] Pneumococcal 13 Conjugate, PCV13 (Prevnar 13) Unknown Completed [facility] Zoster(Zostavax)(Sh ingles) Unknown Completed [facility] SARS-COV-2 COVID-19 MODERNA 0.25ML BOOSTER VACCINE Unknown Completed [facility] Remdesivir Unknown Completed [facility] Influenza Virus Vaccine,quad Im,preserve Free 65+ (FLUAD) Unknown Completed [facility] Influenza High Dose Unknown Completed [facility] TDAP Unknown Completed [facility] Zoster Vaccine Recombinant Unknown Completed [facility] Influenza High Dose Quad Unknown Completed [facility] SARS-COV-2 COVID-19 MODERNA 12+ YRS VACCINE Unknown Completed [facility] Remdesivir Unknown Completed [facility] Influenza Virus Vaccine Unknown Completed [facility] Pneumococcal Polysaccharide, PPSV23 (PNEUMOVAX) Unknown Completed [facility] Pneumococcal 13 Conjugate, PCV13 (Prevnar 13) Unknown Completed [facility] Influenza High Dose Unknown Completed [facility] Zoster(Zostavax)(Sh ingles) Unknown Completed [facility] TDAP Unknown Completed [facility] Zoster Vaccine Recombinant Unknown Completed [facility] Influenza High Dose Quad Unknown Completed [facility] SARS-COV-2 COVID-19 MODERNA 12+ YRS VACCINE Unknown Completed [facility] SARS-COV-2 COVID-19 MODERNA 0.25ML BOOSTER VACCINE Unknown Completed [facility] Remdesivir Unknown Completed [facility] Remdesivir Unknown Completed [facility] Influenza Virus Vaccine,quad Im,preserve Free 65+ (FLUAD) Unknown Completed [facility] Influenza High Dose Unknown Completed [facility] TDAP Unknown Completed [facility] Zoster Vaccine Recombinant Unknown Completed [facility] Influenza High Dose Quad Unknown Completed [facility] SARS-COV-2 COVID-19 MODERNA 12+ YRS VACCINE Unknown Completed [facility] Remdesivir Unknown Completed [facility] Influenza Virus Vaccine Unknown Completed [facility] Pneumococcal Polysaccharide, PPSV23 (PNEUMOVAX) Unknown Completed [facility] Pneumococcal 13 Conjugate, PCV13 (Prevnar 13) Unknown Completed [facility] Influenza High Dose Unknown Completed [facility] Zoster(Zostavax)(Sh ingles) Unknown Completed [facility] TDAP Unknown Completed [facility] Zoster Vaccine Recombinant Unknown Completed [facility] Influenza High Dose Quad Unknown Completed [facility] SARS-COV-2 COVID-19 MODERNA 12+ YRS VACCINE Unknown Completed [facility] SARS-COV-2 COVID-19 MODERNA 0.25ML BOOSTER VACCINE Unknown Completed [facility] Remdesivir Unknown Completed [facility] Remdesivir Unknown Completed [facility] Influenza Virus Vaccine,quad Im,preserve Free 65+ (FLUAD) Unknown Completed [facility] Influenza Virus Vaccine Unknown Completed [facility] Pneumococcal Polysaccharide, PPSV23 (PNEUMOVAX) Unknown Completed [facility] Pneumococcal 13 Conjugate, PCV13 (Prevnar 13) Unknown Completed [facility] Influenza High Dose Unknown Completed [facility] Zoster(Zostavax)(Sh ingles) Unknown Completed [facility] TDAP Unknown Completed [facility] Zoster Vaccine Recombinant Unknown Completed [facility] Influenza High Dose Quad Unknown Completed [facility] SARS-COV-2 COVID-19 MODERNA 12+ YRS VACCINE Unknown Completed [facility] SARS-COV-2 COVID-19 MODERNA 0.25ML BOOSTER VACCINE Unknown Completed [facility] Remdesivir Unknown Completed [facility] Remdesivir Unknown Completed [facility] Influenza Virus Vaccine,quad Im,preserve Free 65+ (FLUAD) Unknown Completed [facility] Influenza Virus Vaccine Unknown Completed [facility] Pneumococcal Polysaccharide, PPSV23 (PNEUMOVAX) Unknown Completed [facility] Pneumococcal 13 Conjugate, PCV13 (Prevnar 13) Unknown Completed [facility] Influenza High Dose Unknown Completed [facility] Zoster(Zostavax)(Sh ingles) Unknown Completed [facility] TDAP Unknown Completed [facility] Zoster Vaccine Recombinant Unknown Completed [facility] Influenza High Dose Quad Unknown Completed [facility] SARS-COV-2 COVID-19 MODERNA 12+ YRS VACCINE Unknown Completed [facility] SARS-COV-2 COVID-19 MODERNA 0.25ML BOOSTER VACCINE Unknown Completed [facility] Remdesivir Unknown Completed [facility] Remdesivir Unknown Completed [facility] Influenza Virus Vaccine,quad Im,preserve Free 65+ (FLUAD) Unknown Completed [facility] Influenza Virus Vaccine Unknown Completed [facility] Pneumococcal Polysaccharide, PPSV23 (PNEUMOVAX) Unknown Completed [facility] Pneumococcal 13 Conjugate, PCV13 (Prevnar 13) Unknown Completed [facility] Zoster(Zostavax)(Sh ingles) Unknown Completed [facility] SARS-COV-2 COVID-19 MODERNA 0.25ML BOOSTER VACCINE Unknown Completed [facility] Remdesivir Unknown Completed [facility] Influenza Virus Vaccine,quad Im,preserve Free 65+ (FLUAD) Unknown Completed [facility] Influenza High Dose Unknown Completed [facility] TDAP Unknown Completed [facility] Zoster Vaccine Recombinant Unknown Completed [facility] Influenza High Dose Quad Unknown Completed [facility] SARS-COV-2 COVID-19 MODERNA 12+ YRS VACCINE Unknown Completed [facility] Remdesivir Unknown Completed [facility] Influenza Virus Vaccine Unknown Completed [facility] Pneumococcal Polysaccharide, PPSV23 (PNEUMOVAX) Unknown Completed [facility] Pneumococcal 13 Conjugate, PCV13 (Prevnar 13) Unknown Completed [facility] Influenza High Dose Unknown Completed [facility] Zoster(Zostavax)(Sh ingles) Unknown Completed [facility] TDAP Unknown Completed [facility] Zoster Vaccine Recombinant Unknown Completed [facility] Influenza High Dose Quad Unknown Completed [facility] SARS-COV-2 COVID-19 MODERNA 12+ YRS VACCINE Unknown Completed [facility] SARS-COV-2 COVID-19 MODERNA 0.25ML BOOSTER VACCINE Unknown Completed [facility] Remdesivir Unknown Completed [facility] Remdesivir Unknown Completed [facility] Influenza Virus Vaccine,quad Im,preserve Free 65+ (FLUAD) Unknown Completed [facility] Influenza Virus Vaccine Unknown Completed [facility] Pneumococcal Polysaccharide, PPSV23 (PNEUMOVAX) Unknown Completed [facility] Pneumococcal 13 Conjugate, PCV13 (Prevnar 13) Unknown Completed [facility] Influenza High Dose Unknown Completed [facility] Zoster(Zostavax)( ingles) Unknown Completed [facility] TDAP Unknown Completed [facility] Zoster Vaccine Recombinant Unknown Completed [facility] Influenza High Dose Quad Unknown Completed [facility] SARS-COV-2 COVID-19 MODERNA 12+ YRS VACCINE Unknown Completed [facility] SARS-COV-2 COVID-19 MODERNA 0.25ML BOOSTER VACCINE Unknown Completed [facility] Remdesivir Unknown Completed [facility] Remdesivir Unknown Completed [facility] Influenza Virus Vaccine,quad Im,preserve Free 65+ (FLUAD) Unknown Completed [facility] Influenza Virus Vaccine Unknown Completed [facility] Pneumococcal Polysaccharide, PPSV23 (PNEUMOVAX) Unknown Completed [facility] Pneumococcal 13 Conjugate, PCV13 (Prevnar 13) Unknown Completed [facility] Influenza High Dose Unknown Completed [facility] Zoster(Zostavax)(Sh ingles) Unknown Completed [facility] TDAP Unknown Completed [facility] Zoster Vaccine Recombinant Unknown Completed [facility] Influenza High Dose Quad Unknown Completed [facility] SARS-COV-2 COVID-19 MODERNA 12+ YRS VACCINE Unknown Completed [facility] SARS-COV-2 COVID-19 MODERNA 0.25ML BOOSTER VACCINE Unknown Completed [facility] Remdesivir Unknown Completed [facility] Remdesivir Unknown Completed [facility] Influenza Virus Vaccine,quad Im,preserve Free 65+ (FLUAD) Unknown Completed [facility] Influenza Virus Vaccine Unknown Completed [facility] Pneumococcal Polysaccharide, PPSV23 (PNEUMOVAX) Unknown Completed [facility] Pneumococcal 13 Conjugate, PCV13 (Prevnar 13) Unknown Completed [facility] Influenza High Dose Unknown Completed [facility] Zoster(Zostavax)(Sh ingles) Unknown Completed [facility] TDAP Unknown Completed [facility] Zoster Vaccine Recombinant Unknown Completed [facility] Influenza High Dose Quad Unknown Completed [facility] SARS-COV-2 COVID-19 MODERNA 12+ YRS VACCINE Unknown Completed [facility] SARS-COV-2 COVID-19 MODERNA 0.25ML BOOSTER VACCINE Unknown Completed [facility] Remdesivir Unknown Completed [facility] Remdesivir Unknown Completed [facility] Influenza Virus Vaccine,quad Im,preserve Free 65+ (FLUAD) Unknown Completed [facility] Influenza Virus Vaccine Unknown Completed [facility] Pneumococcal Polysaccharide, PPSV23 (PNEUMOVAX) Unknown Completed [facility] Pneumococcal 13 Conjugate, PCV13 (Prevnar 13) Unknown Completed [facility] Zoster(Zostavax)(Sh ingles) Unknown Completed [facility] SARS-COV-2 COVID-19 MODERNA 0.25ML BOOSTER VACCINE Unknown Completed [facility] Remdesivir Unknown Completed [facility] Influenza Virus Vaccine,quad Im,preserve Free 65+ (FLUAD) Unknown Completed [facility] Influenza High Dose Unknown Completed [facility] TDAP Unknown Completed [facility] Zoster Vaccine Recombinant Unknown Completed [facility] Influenza High Dose Quad Unknown Completed [facility] SARS-COV-2 COVID-19 MODERNA 12+ YRS VACCINE Unknown Completed [facility] Remdesivir Unknown Completed [facility] Influenza Virus Vaccine Unknown Completed [facility] Pneumococcal Polysaccharide, PPSV23 (PNEUMOVAX) Unknown Completed [facility] Pneumococcal 13 Conjugate, PCV13 (Prevnar 13) Unknown Completed [facility] Influenza High Dose Unknown Completed [facility] Zoster(Zostavax)( ingles) Unknown Completed [facility] TDAP Unknown Completed [facility] Zoster Vaccine Recombinant Unknown Completed [facility] Influenza High Dose Quad Unknown Completed [facility] SARS-COV-2 COVID-19 MODERNA 12+ YRS VACCINE Unknown Completed [facility] SARS-COV-2 COVID-19 MODERNA 0.25ML BOOSTER VACCINE Unknown Completed [facility] Remdesivir Unknown Completed [facility] Remdesivir Unknown Completed [facility] Influenza Virus Vaccine,quad Im,preserve Free 65+ (FLUAD) Unknown Completed [facility] Influenza Virus Vaccine Unknown Completed [facility] Pneumococcal Polysaccharide, PPSV23 (PNEUMOVAX) Unknown Completed [facility] Pneumococcal 13 Conjugate, PCV13 (Prevnar 13) Unknown Completed [facility] Zoster(Zostavax)( ingles) Unknown Completed [facility] SARS-COV-2 COVID-19 MODERNA 0.25ML BOOSTER VACCINE Unknown Completed [facility] Remdesivir Unknown Completed [facility] Influenza Virus Vaccine,quad Im,preserve Free 65+ (FLUAD) Unknown Completed [facility] Influenza High Dose Unknown Completed [facility] TDAP Unknown Completed [facility] Zoster Vaccine Recombinant Unknown Completed [facility] Influenza High Dose Quad Unknown Completed [facility] SARS-COV-2 COVID-19 MODERNA 12+ YRS VACCINE Unknown Completed [facility] Remdesivir Unknown Completed [facility] Influenza Virus Vaccine Unknown Completed [facility] Pneumococcal Polysaccharide, PPSV23 (PNEUMOVAX) Unknown Completed [facility] Pneumococcal 13 Conjugate, PCV13 (Prevnar 13) Unknown Completed [facility] Zoster(Zostavax)( ingles) Unknown Completed [facility] SARS-COV-2 COVID-19 MODERNA 0.25ML BOOSTER VACCINE Unknown Completed [facility] Remdesivir Unknown Completed [facility] Influenza Virus Vaccine,quad Im,preserve Free 65+ (FLUAD) Unknown Completed [facility] Influenza High Dose Unknown Completed [facility] TDAP Unknown Completed [facility] Zoster Vaccine Recombinant Unknown Completed [facility] Influenza High Dose Quad Unknown Completed [facility] SARS-COV-2 COVID-19 MODERNA 12+ YRS VACCINE Unknown Completed [facility] Remdesivir Unknown Completed [facility] Influenza Virus Vaccine Unknown Completed [facility] Pneumococcal Polysaccharide, PPSV23 (PNEUMOVAX) Unknown Completed [facility] Pneumococcal 13 Conjugate, PCV13 (Prevnar 13) Unknown Completed [facility] Zoster(Zostavax)(Sh ingles) Unknown Completed [facility] SARS-COV-2 COVID-19 MODERNA 0.25ML BOOSTER VACCINE Unknown Completed [facility] Remdesivir Unknown Completed [facility] Influenza Virus Vaccine,quad Im,preserve Free 65+ (FLUAD) Unknown Completed [facility] Influenza High Dose Unknown Completed [facility] TDAP Unknown Completed [facility] Zoster Vaccine Recombinant Unknown Completed [facility] Influenza High Dose Quad Unknown Completed [facility] SARS-COV-2 COVID-19 MODERNA 12+ YRS VACCINE Unknown Completed [facility] Remdesivir Unknown Completed [facility] Influenza Virus Vaccine Unknown Completed [facility] Pneumococcal Polysaccharide, PPSV23 (PNEUMOVAX) Unknown Completed [facility] Pneumococcal 13 Conjugate, PCV13 (Prevnar 13) Unknown Completed [facility] Influenza High Dose Unknown Completed [facility] Zoster(Zostavax)(Sh ingles) Unknown Completed [facility] TDAP Unknown Completed [facility] Zoster Vaccine Recombinant Unknown Completed [facility] Influenza High Dose Quad Unknown Completed [facility] SARS-COV-2 COVID-19 MODERNA 12+ YRS VACCINE Unknown Completed [facility] SARS-COV-2 COVID-19 MODERNA 0.25ML BOOSTER VACCINE Unknown Completed [facility] Remdesivir Unknown Completed [facility] Remdesivir Unknown Completed [facility] Influenza Virus Vaccine,quad Im,preserve Free 65+ (FLUAD) Unknown Completed [facility] Influenza Virus Vaccine Unknown Completed [facility] Pneumococcal Polysaccharide, PPSV23 (PNEUMOVAX) Unknown Completed [facility] Pneumococcal 13 Conjugate, PCV13 (Prevnar 13) Unknown Completed [facility] Influenza High Dose Unknown Completed [facility] Zoster(Zostavax)(Sh ingles) Unknown Completed [facility] TDAP Unknown Completed [facility] Zoster Vaccine Recombinant Unknown Completed [facility] Influenza High Dose Quad Unknown Completed [facility] SARS-COV-2 COVID-19 MODERNA 12+ YRS VACCINE Unknown Completed [facility] SARS-COV-2 COVID-19 MODERNA 0.25ML BOOSTER VACCINE Unknown Completed [facility] Remdesivir Unknown Completed [facility] Remdesivir Unknown Completed [facility] Influenza Virus Vaccine,quad Im,preserve Free 65+ (FLUAD) Unknown Completed [facility] Influenza Virus Vaccine Unknown Completed [facility] Pneumococcal Polysaccharide, PPSV23 (PNEUMOVAX) Unknown Completed [facility] Pneumococcal 13 Conjugate, PCV13 (Prevnar 13) Unknown Completed [facility] Influenza High Dose Unknown Completed [facility] Zoster(Zostavax)( ingles) Unknown Completed [facility] TDAP Unknown Completed [facility] Zoster Vaccine Recombinant Unknown Completed [facility] Influenza High Dose Quad Unknown Completed [facility] SARS-COV-2 COVID-19 MODERNA 12+ YRS VACCINE Unknown Completed [facility] SARS-COV-2 COVID-19 MODERNA 0.25ML BOOSTER VACCINE Unknown Completed [facility] Remdesivir Unknown Completed [facility] Remdesivir Unknown Completed [facility] Influenza Virus Vaccine,quad Im,preserve Free 65+ (FLUAD) Unknown Completed [facility] Influenza Virus Vaccine Unknown Completed [facility] Pneumococcal Polysaccharide, PPSV23 (PNEUMOVAX) Unknown Completed [facility] Pneumococcal 13 Conjugate, PCV13 (Prevnar 13) Unknown Completed [facility] Influenza High Dose Unknown Completed [facility] Zoster(Zostavax)(Sh ingles) Unknown Completed [facility] TDAP Unknown Completed [facility] Zoster Vaccine Recombinant Unknown Completed [facility] Influenza High Dose Quad Unknown Completed [facility] SARS-COV-2 COVID-19 MODERNA 12+ YRS VACCINE Unknown Completed [facility] SARS-COV-2 COVID-19 MODERNA 0.25ML BOOSTER VACCINE Unknown Completed [facility] Remdesivir Unknown Completed [facility] Remdesivir Unknown Completed [facility] Influenza Virus Vaccine,quad Im,preserve Free 65+ (FLUAD) Unknown Completed [facility] Influenza Virus Vaccine Unknown Completed [facility] Pneumococcal Polysaccharide, PPSV23 (PNEUMOVAX) Unknown Completed [facility] Pneumococcal 13 Conjugate, PCV13 (Prevnar 13) Unknown Completed [facility] Influenza High Dose Unknown Completed [facility] Zoster(Zostavax)(Sh ingles) Unknown Completed [facility] TDAP Unknown Completed [facility] Zoster Vaccine Recombinant Unknown Completed [facility] Influenza High Dose Quad Unknown Completed [facility] SARS-COV-2 COVID-19 MODERNA 12+ YRS VACCINE Unknown Completed [facility] SARS-COV-2 COVID-19 MODERNA 0.25ML BOOSTER VACCINE Unknown Completed [facility] Remdesivir Unknown Completed [facility] Remdesivir Unknown Completed [facility] Influenza Virus Vaccine,quad Im,preserve Free 65+ (FLUAD) Unknown Completed [facility] Influenza Virus Vaccine Unknown Completed [facility] Pneumococcal Polysaccharide, PPSV23 (PNEUMOVAX) Unknown Completed [facility] Pneumococcal 13 Conjugate, PCV13 (Prevnar 13) Unknown Completed [facility] Influenza High Dose Unknown Completed [facility] Zoster(Zostavax)(Sh ingles) Unknown Completed [facility] TDAP Unknown Completed [facility] Zoster Vaccine Recombinant Unknown Completed [facility] Influenza High Dose Quad Unknown Completed [facility] SARS-COV-2 COVID-19 MODERNA 12+ YRS VACCINE Unknown Completed [facility] SARS-COV-2 COVID-19 MODERNA 0.25ML BOOSTER VACCINE Unknown Completed [facility] Remdesivir Unknown Completed [facility] Remdesivir Unknown Completed [facility] Influenza Virus Vaccine,quad Im,preserve Free 65+ (FLUAD) Unknown Completed [facility] Influenza Virus Vaccine Unknown Completed [facility] Pneumococcal Polysaccharide, PPSV23 (PNEUMOVAX) Unknown Completed [facility] Pneumococcal 13 Conjugate, PCV13 (Prevnar 13) Unknown Completed [facility] Influenza High Dose Unknown Completed [facility] Zoster(Zostavax)(Sh ingles) Unknown Completed [facility] TDAP Unknown Completed [facility] Zoster Vaccine Recombinant Unknown Completed [facility] Influenza High Dose Quad Unknown Completed [facility] SARS-COV-2 COVID-19 MODERNA 12+ YRS VACCINE Unknown Completed [facility] SARS-COV-2 COVID-19 MODERNA 0.25ML BOOSTER VACCINE Unknown Completed [facility] Remdesivir Unknown Completed [facility] Remdesivir Unknown Completed [facility] Influenza Virus Vaccine,quad Im,preserve Free 65+ (FLUAD) Unknown Completed [facility] Influenza Virus Vaccine Unknown Completed [facility] Pneumococcal Polysaccharide, PPSV23 (PNEUMOVAX) Unknown Completed [facility] Pneumococcal 13 Conjugate, PCV13 (Prevnar 13) Unknown Completed [facility] Influenza High Dose Unknown Completed [facility] Zoster(Zostavax)( ingles) Unknown Completed [facility] TDAP Unknown Completed [facility] Zoster Vaccine Recombinant Unknown Completed [facility] Influenza High Dose Quad Unknown Completed [facility] SARS-COV-2 COVID-19 MODERNA 12+ YRS VACCINE Unknown Completed [facility] SARS-COV-2 COVID-19 MODERNA 0.25ML BOOSTER VACCINE Unknown Completed [facility] Remdesivir Unknown Completed [facility] Remdesivir Unknown Completed [facility] Influenza Virus Vaccine,quad Im,preserve Free 65+ (FLUAD) Unknown Completed [facility] Influenza Virus Vaccine Unknown Completed [facility] Pneumococcal Polysaccharide, PPSV23 (PNEUMOVAX) Unknown Completed [facility] Pneumococcal 13 Conjugate, PCV13 (Prevnar 13) Unknown Completed [facility] Influenza High Dose Unknown Completed [facility] Zoster(Zostavax)(Sh ingles) Unknown Completed [facility] TDAP Unknown Completed [facility] Zoster Vaccine Recombinant Unknown Completed [facility] Influenza High Dose Quad Unknown Completed [facility] SARS-COV-2 COVID-19 MODERNA 12+ YRS VACCINE Unknown Completed [facility] SARS-COV-2 COVID-19 MODERNA 0.25ML BOOSTER VACCINE Unknown Completed [facility] Remdesivir Unknown Completed [facility] Remdesivir Unknown Completed [facility] Influenza Virus Vaccine,quad Im,preserve Free 65+ (FLUAD) Unknown Completed [facility] Influenza Virus Vaccine Unknown Completed [facility] Pneumococcal Polysaccharide, PPSV23 (PNEUMOVAX) Unknown Completed [facility] Pneumococcal 13 Conjugate, PCV13 (Prevnar 13) Unknown Completed [facility] Influenza High Dose Unknown Completed [facility] Zoster(Zostavax)(Sh ingles) Unknown Completed [facility] TDAP Unknown Completed [facility] Zoster Vaccine Recombinant Unknown Completed [facility] Influenza High Dose Quad Unknown Completed [facility] SARS-COV-2 COVID-19 MODERNA 12+ YRS VACCINE Unknown Completed [facility] SARS-COV-2 COVID-19 MODERNA 0.25ML BOOSTER VACCINE Unknown Completed [facility] Remdesivir Unknown Completed [facility] Remdesivir Unknown Completed [facility] Influenza Virus Vaccine,quad Im,preserve Free 65+ (FLUAD) Unknown Completed [facility] Influenza Virus Vaccine Unknown Completed [facility] Pneumococcal Polysaccharide, PPSV23 (PNEUMOVAX) Unknown Completed [facility] Pneumococcal 13 Conjugate, PCV13 (Prevnar 13) Unknown Completed [facility] Influenza High Dose Unknown Completed [facility] Zoster(Zostavax)(Sh ingles) Unknown Completed [facility] TDAP Unknown Completed [facility] Zoster Vaccine Recombinant Unknown Completed [facility] Influenza High Dose Quad Unknown Completed [facility] SARS-COV-2 COVID-19 MODERNA 12+ YRS VACCINE Unknown Completed [facility] SARS-COV-2 COVID-19 MODERNA 0.25ML BOOSTER VACCINE Unknown Completed [facility] Remdesivir Unknown Completed [facility] Remdesivir Unknown Completed [facility] Influenza Virus Vaccine,quad Im,preserve Free 65+ (FLUAD) Unknown Completed [facility] Influenza Virus Vaccine Unknown Completed [facility] Pneumococcal Polysaccharide, PPSV23 (PNEUMOVAX) Unknown Completed [facility] Pneumococcal 13 Conjugate, PCV13 (Prevnar 13) Unknown Completed [facility] Influenza High Dose Unknown Completed [facility] Zoster(Zostavax)(Sh ingles) Unknown Completed [facility] TDAP Unknown Completed [facility] Zoster Vaccine Recombinant Unknown Completed [facility] Influenza High Dose Quad Unknown Completed [facility] SARS-COV-2 COVID-19 MODERNA 12+ YRS VACCINE Unknown Completed [facility] SARS-COV-2 COVID-19 MODERNA 0.25ML BOOSTER VACCINE Unknown Completed [facility] Remdesivir Unknown Completed [facility] Remdesivir Unknown Completed [facility] Influenza Virus Vaccine,quad Im,preserve Free 65+ (FLUAD) Unknown Completed [facility] Influenza Virus Vaccine Unknown Completed [facility] Pneumococcal Polysaccharide, PPSV23 (PNEUMOVAX) Unknown Completed [facility] Pneumococcal 13 Conjugate, PCV13 (Prevnar 13) Unknown Completed [facility] Influenza High Dose Unknown Completed [facility] Zoster(Zostavax)( ingles) Unknown Completed [facility] TDAP Unknown Completed [facility] Zoster Vaccine Recombinant Unknown Completed [facility] Influenza High Dose Quad Unknown Completed [facility] SARS-COV-2 COVID-19 MODERNA 12+ YRS VACCINE Unknown Completed [facility] SARS-COV-2 COVID-19 MODERNA 0.25ML BOOSTER VACCINE Unknown Completed [facility] Remdesivir Unknown Completed [facility] Remdesivir Unknown Completed [facility] Influenza Virus Vaccine,quad Im,preserve Free 65+ (FLUAD) Unknown Completed [facility] Influenza Virus Vaccine Unknown Completed [facility] Pneumococcal Polysaccharide, PPSV23 (PNEUMOVAX) Unknown Completed [facility] Pneumococcal 13 Conjugate, PCV13 (Prevnar 13) Unknown Completed [facility] Influenza High Dose Unknown Completed [facility] Zoster(Zostavax)(Sh ingles) Unknown Completed [facility] TDAP Unknown Completed [facility] Zoster Vaccine Recombinant Unknown Completed [facility] Influenza High Dose Quad Unknown Completed [facility] SARS-COV-2 COVID-19 MODERNA 12+ YRS VACCINE Unknown Completed [facility] SARS-COV-2 COVID-19 MODERNA 0.25ML BOOSTER VACCINE Unknown Completed [facility] Remdesivir Unknown Completed [facility] Remdesivir Unknown Completed [facility] Influenza Virus Vaccine,quad Im,preserve Free 65+ (FLUAD) Unknown Completed [facility] Influenza Virus Vaccine Unknown Completed [facility] Pneumococcal Polysaccharide, PPSV23 (PNEUMOVAX) Unknown Completed [facility] Pneumococcal 13 Conjugate, PCV13 (Prevnar 13) Unknown Completed [facility] Influenza, High-Dose, Trivalent, PF (FLUZONE) Unknown Completed [facility] Zoster(Zostavax)(Sh ingles) Unknown Completed [facility] TDAP Unknown Completed [facility] Zoster Vaccine Recombinant Unknown Completed [facility] Influenza High Dose Quad Unknown Completed [facility] SARS-COV-2 COVID-19 MODERNA 12+ YRS VACCINE Unknown Completed [facility] SARS-COV-2 COVID-19 MODERNA 0.25ML BOOSTER VACCINE Unknown Completed [facility] Remdesivir Unknown Completed [facility] Remdesivir Unknown Completed [facility] Influenza Virus Vaccine,quad Im,preserve Free 65+ (FLUAD) Unknown Completed [facility] Influenza Virus Vaccine Unknown Completed [facility] Pneumococcal Polysaccharide, PPSV23 (PNEUMOVAX) Unknown Completed [facility] Pneumococcal 13 Conjugate, PCV13 (Prevnar 13) Unknown Completed [facility] Influenza, High-Dose, Trivalent, PF (FLUZONE) Unknown Completed [facility] Zoster(Zostavax)(Sh ingles) Unknown Completed [facility] TDAP Unknown Completed [facility] Zoster Vaccine Recombinant Unknown Completed [facility] Influenza High Dose Quad Unknown Completed [facility] SARS-COV-2 COVID-19 MODERNA 12+ YRS VACCINE Unknown Completed [facility] SARS-COV-2 COVID-19 MODERNA 0.25ML BOOSTER VACCINE Unknown Completed [facility] Remdesivir Unknown Completed [facility] Remdesivir Unknown Completed [facility] Influenza Virus Vaccine,quad Im,preserve Free 65+ (FLUAD) Unknown Completed [facility] Influenza Virus Vaccine Unknown Completed [facility] Pneumococcal Polysaccharide, PPSV23 (PNEUMOVAX) Unknown Completed [facility] Pneumococcal 13 Conjugate, PCV13 (Prevnar 13) Unknown Completed [facility] Influenza, High-Dose, Trivalent, PF (FLUZONE) Unknown Completed [facility] Zoster(Zostavax)(Sh ingles) Unknown Completed [facility] TDAP Unknown Completed [facility] Zoster Vaccine Recombinant Unknown Completed [facility] Influenza High Dose Quad Unknown Completed [facility] SARS-COV-2 COVID-19 MODERNA 12+ YRS VACCINE Unknown Completed [facility] SARS-COV-2 COVID-19 MODERNA 0.25ML BOOSTER VACCINE Unknown Completed [facility] Remdesivir Unknown Completed [facility] Remdesivir Unknown Completed [facility] Influenza Virus Vaccine,quad Im,preserve Free 65+ (FLUAD) Unknown Completed [facility] Influenza Virus Vaccine Unknown Completed [facility] Pneumococcal Polysaccharide, PPSV23 (PNEUMOVAX) Unknown Completed [facility] Pneumococcal 13 Conjugate, PCV13 (Prevnar 13) Unknown Completed [facility] Influenza, High-Dose, Trivalent, PF (FLUZONE) Unknown Completed [facility] Zoster(Zostavax)( ingles) Unknown Completed [facility] TDAP Unknown Completed [facility] Zoster Vaccine Recombinant Unknown Completed [facility] Influenza High Dose Quad Unknown Completed [facility] SARS-COV-2 COVID-19 MODERNA 12+ YRS VACCINE Unknown Completed [facility] SARS-COV-2 COVID-19 MODERNA 0.25ML BOOSTER VACCINE Unknown Completed [facility] Remdesivir Unknown Completed [facility] Remdesivir Unknown Completed [facility] Influenza Virus Vaccine,quad Im,preserve Free 65+ (FLUAD) Unknown Completed [facility] Influenza Virus Vaccine Unknown Completed [facility] Pneumococcal Polysaccharide, PPSV23 (PNEUMOVAX) Unknown Completed [facility] Pneumococcal 13 Conjugate, PCV13 (Prevnar 13) Unknown Completed [facility] Influenza, High-Dose, Trivalent, PF (FLUZONE) Unknown Completed [facility] Zoster(Zostavax)(Sh ingles) Unknown Completed [facility] TDAP Unknown Completed [facility] Zoster Vaccine Recombinant Unknown Completed [facility] Influenza High Dose Quad Unknown Completed [facility] SARS-COV-2 COVID-19 MODERNA 12+ YRS VACCINE Unknown Completed [facility] SARS-COV-2 COVID-19 MODERNA 0.25ML BOOSTER VACCINE Unknown Completed [facility] Remdesivir Unknown Completed [facility] Remdesivir Unknown Completed [facility] Influenza Virus Vaccine,quad Im,preserve Free 65+ (FLUAD) Unknown Completed [facility] Vital Signs Vital Name Observation Time Observation Value Comments S ource Systolic blood pressure 2024-01-08 19:10:00 120 mm[Hg] [facility] Diastolic blood pressure 2024-01-08 19:10:00 75 mm[Hg] [facility] Heart rate 2024-01-08 19:10:00 68 /min [facility] Respiratory rate 2024-01-08 19:10:00 15 /min [facility] Oxygen saturation in Arterial blood by Pulse oximetry 2024-01-08 19:10:00 97 /min [facility] Body temperature 2024-01-08 16:11:00 36.33 Annie [facility] Body height 2024-01-08 12:43:00 147.3 cm [facility] Body weight 2024-01-08 12:43:00 43.092 kg [facility] BMI 2024-01-08 12:43:00 19.86 kg/m2 [facility] Systolic blood pressure 2024-01-08 17:15:00 112 mm[Hg] [facility] Diastolic blood pressure 2024-01-08 17:15:00 64 mm[Hg] [facility] Heart rate 2024-01-08 17:15:00 76 /min [facility] Respiratory rate 2024-01-08 17:15:00 13 /min [facility] Oxygen saturation in Arterial blood by Pulse oximetry 2024-01-08 17:15:00 97 /min [facility] Body temperature 2024-01-08 16:11:00 36.33 Annie [facility] Body height 2024-01-08 12:43:00 147.3 cm [facility] Body weight 2024-01-08 12:43:00 43.092 kg [facility] BMI 2024-01-08 12:43:00 19.86 kg/m2 [facility] Body height 2023-12-19 13:33:00 147.3 cm [facility] Body weight 2023-12-19 13:33:00 44.725 kg [facility] BMI 2023-12-19 13:33:00 20.61 kg/m2 [facility] Systolic blood pressure 2023-12-15 15:50:00 109 mm[Hg] [facility] Diastolic blood pressure 2023-12-15 15:50:00 72 mm[Hg] [facility] Heart rate 2023-12-15 15:50:00 85 /min [facility] Body height 2023-12-15 15:50:00 147.3 cm [facility] Body weight 2023-12-15 15:50:00 45.088 kg [facility] BMI 2023-12-15 15:50:00 20.77 kg/m2 [facility] Oxygen saturation in Arterial blood by Pulse oximetry 2023-12-15 15:50:00 95 /min [facility] Body height 2023-11-07 14:08:00 147.3 cm [facility] Body weight 2023-11-07 14:08:00 46.72 kg [facility] BMI 2023-11-07 14:08:00 21.53 kg/m2 Univ [facility] Systolic blood pressure 2023-10-26 19:59:00 113 mm[Hg] [facility] Diastolic blood pressure 2023-10-26 19:59:00 73 mm[Hg] [facility] Heart rate 2023-10-26 19:59:00 78 /min Un[facility] Respiratory rate 2023-10-26 19:59:00 18 /min [facility] Body height 2023-10-26 19:59:00 149.9 cm [facility] 2023-10-26 19:59:00 44.997 kg [facility] BMI 2023-10-26 19:59:00 20.04 kg/m2 [facility] Oxygen saturation in Arterial blood by Pulse oximetry 2023-10-26 19:59:00 96 /min [facility] Systolic blood pressure 2023-10-24 19:42:00 120 mm[Hg] [facility] Diastolic blood pressure 2023-10-24 19:42:00 75 mm[Hg] [facility] Heart rate 2023-10-24 19:42:00 91 /min Unive [facility] Respiratory rate 2023-10-24 19:42:00 19 /min [facility] Body weight 2023-10-24 19:42:00 44.226 kg [facility] BMI 2023-10-24 19:42:00 20.38 kg/m2 [facility] Oxygen saturation in Arterial blood by Pulse oximetry 2023-10-24 19:42:00 96 /min [facility] Systolic blood pressure 2023-10-05 14:14:00 112 mm[Hg] [facility] Diastolic blood pressure 2023-10-05 14:14:00 72 mm[Hg] [facility] Heart rate 2023-10-05 14:14:00 91 /min Unive [facility] Body height 2023-10-05 14:14:00 147.3 cm [facility] Body weight 2023-10-05 14:14:00 43.954 kg [facility] BMI 2023-10-05 14:14:00 20.25 kg/m2 [facility] Oxygen saturation in Arterial blood by Pulse oximetry 2023-10-05 14:14:00 97 /min [facility] Systolic blood pressure 2023-09-18 15:40:00 92 mm[Hg] [facility] Diastolic blood pressure 2023-09-18 15:40:00 80 mm[Hg] [facility] Heart rate 2023-09-18 15:40:00 65 /min Unive [facility] Body temperature 2023-09-18 15:40:00 36.17 [facility] Respiratory rate 2023-09-18 15:40:00 14 /min [facility] Oxygen saturation in Arterial blood by Pulse oximetry 2023-09-18 15:40:00 97 /min [facility] Body weight 2023-09-12 17:00:00 44.906 kg [facility] BMI 2023-09-12 17:00:00 20.00 kg/m2 [facility] Systolic blood pressure 2023-09-18 15:40:00 92 mm[Hg] [facility] Diastolic blood pressure 2023-09-18 15:40:00 80 mm[Hg] [facility] Heart rate 2023-09-18 15:40:00 65 /min Unive [facility] Body temperature 2023-09-18 15:40:00 36.17 Annie [facility] Respiratory rate 2023-09-18 15:40:00 14 /min [facility] Oxygen saturation in Arterial blood by Pulse oximetry 2023-09-18 15:40:00 97 /min [facility] Body weight 2023-09-12 17:00:00 44.906 kg [facility] BMI 2023-09-12 17:00:00 20.00 kg/m2 [facility] Body height 2023-09-12 13:05:00 149.9 cm [facility] Body weight 2023-09-12 13:05:00 44.906 kg [facility] BMI 2023-09-12 13:05:00 20.00 kg/m2 [facility] Systolic blood pressure 2023-09-08 18:09:00 115 mm[Hg] [facility] Diastolic blood pressure 2023-09-08 18:09:00 72 mm[Hg] [facility] Heart rate 2023-09-08 18:09:00 85 /min Unive [facility] Body temperature 2023-09-08 18:09:00 36.17 [facility] Respiratory rate 2023-09-08 18:09:00 18 /min [facility] Body height 2023-09-08 18:09:00 149.9 cm [facility] Body weight 2023-09-08 18:09:00 44.044 kg [facility] BMI 2023-09-08 18:09:00 19.61 kg/m2 [facility] Oxygen saturation in Arterial blood by Pulse oximetry 2023-09-08 18:09:00 96 /min [facility] Systolic blood pressure 2023-06-15 15:30:00 102 mm[Hg] [facility] Diastolic blood pressure 2023-06-15 15:30:00 61 mm[Hg] [facility] Heart rate 2023-06-15 15:30:00 80 /min [facility] height 2023-06-15 15:30:00 147.3 cm [facility] Body weight 2023-06-15 15:30:00 45.133 kg [facility] BMI 2023-06-15 15:30:00 20.80 kg/m2 [facility] Oxygen saturation in Arterial blood by Pulse oximetry 2023-06-15 15:30:00 96 /min [facility] Body height 2023-05-25 14:23:00 147.3 cm [facility] Body weight 2023-05-25 14:23:00 44.997 kg [facility] BMI 2023-05-25 14:23:00 20.73 kg/m2 [facility] Systolic blood pressure 2023-05-14 15:26:00 120 mm[Hg] [facility] Diastolic blood pressure 2023-05-14 15:26:00 76 mm[Hg] [facility] Heart rate 2023-05-14 15:26:00 87 /min Unive [facility] Body temperature 2023-05-14 15:26:00 36.5 Annie [facility] Respiratory rate 2023-05-14 15:26:00 14 /min [facility] Body height 2023-05-14 15:26:00 147.3 cm [facility] Body weight 2023-05-14 15:26:00 46.267 kg [facility] BMI 2023-05-14 15:26:00 21.32 kg/m2 [facility] Oxygen saturation in Arterial blood by Pulse oximetry 2023-05-14 15:26:00 95 /min [facility] Systolic blood pressure 2022-12-21 15:44:00 113 mm[Hg] [facility] Diastolic blood pressure 2022-12-21 15:44:00 71 mm[Hg] [facility] Heart rate 2022-12-21 15:44:00 91 /min Unive [facility] Body temperature 2022-12-21 15:44:00 36.44 Annie [facility] Respiratory rate 2022-12-21 15:44:00 20 /min [facility] Body height 2022-12-21 15:44:00 147.3 cm [facility] Body weight 2022-12-21 15:44:00 47.628 kg [facility] BMI 2022-12-21 15:44:00 21.95 kg/m2 [facility] Oxygen saturation in Arterial blood by Pulse oximetry 2022-12-21 15:44:00 98 /min [facility] Systolic blood pressure 2022-12-21 15:44:00 113 mm[Hg] [facility] Diastolic blood pressure 2022-12-21 15:44:00 71 mm[Hg] [facility] Heart rate 2022-12-21 15:44:00 91 /min [facility] Body temperature 2022-12-21 15:44:00 36.44 Annie [facility] Respiratory rate 2022-12-21 15:44:00 20 /min [facility] Body height 2022-12-21 15:44:00 147.3 cm [facility] Body weight 2022-12-21 15:44:00 47.628 kg [facility] BMI 2022-12-21 15:44:00 21.95 kg/m2 [facility] Oxygen saturation in Arterial blood by Pulse oximetry 2022-12-21 15:44:00 98 /min [facility] Systolic blood pressure 2022-11-11 21:27:00 130 mm[Hg] [facility] Diastolic blood pressure 2022-11-11 21:27:00 74 mm[Hg] [facility] Heart rate 2022-11-11 21:27:00 88 /min Unive [facility] Body height 2022-11-11 21:27:00 148.6 cm [facility] Body weight 2022-11-11 21:27:00 48.535 kg [facility] BMI 2022-11-11 21:27:00 21.98 kg/m2 [facility] Oxygen saturation in Arterial blood by Pulse oximetry 2022-11-11 21:27:00 96 /min [facility] Systolic blood pressure 2022-10-21 14:00:00 112 mm[Hg] [facility] Diastolic blood pressure 2022-10-21 14:00:00 70 mm[Hg] [facility] Heart rate 2022-10-21 14:00:00 83 /min Un[facility] Body temperature 2022-10-21 14:00:00 36.78 Annie [facility] Body height 2022-10-21 14:00:00 147.3 cm [facility] Body weight 2022-10-21 14:00:00 47.673 kg [facility] BMI 2022-10-21 14:00:00 21.97 kg/m2 [facility] Oxygen saturation in Arterial blood by Pulse oximetry 2022-10-21 14:00:00 94 /min [facility] Systolic blood pressure 2022-10-16 20:00:00 127 mm[Hg] [facility] Diastolic blood pressure 2022-10-16 20:00:00 77 mm[Hg] [facility] Heart rate 2022-10-16 20:00:00 61 /min Un[facility] Respiratory rate 2022-10-16 20:00:00 17 /min [facility] Oxygen saturation in Arterial blood by Pulse oximetry 2022-10-16 20:00:00 94 /min [facility] Body temperature 2022-10-16 16:27:00 37.28 Annie [facility] Body height 2022-10-16 16:27:00 147.3 cm [facility] Body weight 2022-10-16 16:27:00 45.36 kg [facility] BMI 2022-10-16 16:27:00 20.90 kg/m2 [facility] Systolic blood pressure 2022-10-16 15:59:00 134 mm[Hg] [facility] Diastolic blood pressure 2022-10-16 15:59:00 81 mm[Hg] [facility] Heart rate 2022-10-16 15:59:00 79 /min Unive [facility] Body temperature 2022-10-16 15:59:00 36.39 Annie [facility] Respiratory rate 2022-10-16 15:59:00 14 /min [facility] Body height 2022-10-16 15:59:00 149.9 cm [facility] Body weight 2022-10-16 15:59:00 47.174 kg [facility] BMI 2022-10-16 15:59:00 21.01 kg/m2 [facility] Oxygen saturation in Arterial blood by Pulse oximetry 2022-10-16 15:59:00 97 /min [facility] Systolic blood pressure 2022-09-07 17:00:00 109 mm[Hg] [facility] Diastolic blood pressure 2022-09-07 17:00:00 74 mm[Hg] [facility] Heart rate 2022-09-07 17:00:00 76 /min Un[facility] Body temperature 2022-09-07 17:00:00 36.22 Annie [facility] Body height 2022-09-07 17:00:00 149.9 cm [facility] Body weight 2022-09-07 17:00:00 47.582 kg [facility] BMI 2022-09-07 17:00:00 21.19 kg/m2 [facility] Oxygen saturation in Arterial blood by Pulse oximetry 2022-09-07 17:00:00 95 /min [facility] Systolic blood pressure 2022-07-20 14:36:00 104 mm[Hg] [facility] Diastolic blood pressure 2022-07-20 14:36:00 65 mm[Hg] [facility] Heart rate 2022-07-20 14:36:00 78 /min [facility] 2022-07-20 14:36:00 18 /min [facility] Body height 2022-07-20 14:36:00 147.3 cm [facility] Body weight 2022-07-20 14:36:00 48.081 kg [facility] BMI 2022-07-20 14:36:00 22.15 kg/m2 [facility] Oxygen saturation in Arterial blood by Pulse oximetry 2022-07-20 14:36:00 95 /min [facility] Systolic blood pressure 2022-07-20 14:30:00 104 mm[Hg] [facility] Diastolic blood pressure 2022-07-20 14:30:00 65 mm[Hg] [facility] Heart rate 2022-07-20 14:30:00 78 /min Un[facility] Respiratory rate 2022-07-20 14:30:00 18 /min [facility] Body height 2022-07-20 14:30:00 147.3 cm [facility] Body weight 2022-07-20 14:30:00 48.081 kg [facility] BMI 2022-07-20 14:30:00 22.15 kg/m2 [facility] Oxygen saturation in Arterial blood by Pulse oximetry 2022-07-20 14:30:00 95 /min [facility] Body height 2022-04-21 16:25:00 149.9 cm [facility] Body weight 2022-04-21 16:25:00 47.174 kg [facility] BMI 2022-04-21 16:25:00 21.01 kg/m2 [facility] Systolic blood pressure 2022-04-20 20:55:00 116 mm[Hg] [facility] Diastolic blood pressure 2022-04-20 20:55:00 69 mm[Hg] [facility] Heart rate 2022-04-20 20:55:00 86 /min Unive [facility] Respiratory rate 2022-04-20 20:55:00 18 /min [facility] Body weight 2022-04-20 20:55:00 47.174 kg [facility] BMI 2022-04-20 20:55:00 21.01 kg/m2 [facility] Oxygen saturation in Arterial blood by Pulse oximetry 2022-04-20 20:55:00 96 /min [facility] BMI 2022-04-15 18:34:00 21.31 kg/m2 [facility] Oxygen saturation in Arterial blood by Pulse oximetry 2022-04-15 18:34:00 95 /min [facility] Systolic blood pressure 2022-04-15 18:34:00 109 mm[Hg] [facility] Diastolic blood pressure 2022-04-15 18:34:00 74 mm[Hg] [facility] Heart rate 2022-04-15 18:34:00 94 /min [facility] Body temperature 2022-04-15 18:34:00 36.83 Annie [facility] Respiratory rate 2022-04-15 18:34:00 16 /min [facility] Body height 2022-04-15 18:34:00 149.9 cm [facility] Body weight 2022-04-15 18:34:00 47.854 kg [facility] Systolic blood pressure 2022-03-07 14:18:00 110 mm[Hg] [facility] Diastolic blood pressure 2022-03-07 14:18:00 71 mm[Hg] [facility] Heart rate 2022-03-07 14:18:00 86 /min [facility] Body temperature 2022-03-07 14:18:00 36.44 Annie [facility] Respiratory rate 2022-03-07 14:18:00 18 /min [facility] Body height 2022-03-07 14:18:00 147.3 cm [facility] Body weight 2022-03-07 14:18:00 46.267 kg [facility] BMI 2022-03-07 14:18:00 21.32 kg/m2 [facility] Systolic blood pressure 2022-03-02 14:06:00 127 mm[Hg] [facility] Diastolic blood pressure 2022-03-02 14:06:00 70 mm[Hg] [facility] Heart rate 2022-03-02 14:06:00 84 /min [facility] Body weight 2022-03-02 14:06:00 47.945 kg [facility] BMI 2022-03-02 14:06:00 22.09 kg/m2 [facility] Oxygen saturation in Arterial blood by Pulse oximetry 2022-03-02 14:06:00 97 /min [facility] Systolic blood pressure 2022-02-22 22:00:00 124 mm[Hg] [facility] Diastolic blood pressure 2022-02-22 22:00:00 81 mm[Hg] [facility] Heart rate 2022-02-22 22:00:00 78 /min [facility] Body temperature 2022-02-22 22:00:00 36.5 Annie [facility] Respiratory rate 2022-02-22 22:00:00 21 /min [facility] Oxygen saturation in Arterial blood by Pulse oximetry 2022-02-22 22:00:00 95 /min [facility] Body weight 2022-02-22 09:31:00 48.988 kg [facility] BMI 2022-02-22 09:31:00 22.57 kg/m2 [facility] Body height 2022-02-20 22:03:00 147.3 cm [facility] Systolic blood pressure 2022-02-20 17:08:00 116 mm[Hg] [facility] Diastolic blood pressure 2022-02-20 17:08:00 71 mm[Hg] [facility] Heart rate 2022-02-20 17:08:00 83 /min [facility] Body temperature 2022-02-20 17:08:00 37.06 Annie [facility] Respiratory rate 2022-02-20 17:08:00 16 /min [facility] Body height 2022-02-20 17:08:00 175.3 cm [facility] Body weight 2022-02-20 17:08:00 89.767 kg [facility] BMI 2022-02-20 17:08:00 29.22 kg/m2 [facility] Oxygen saturation in Arterial blood by Pulse oximetry 2022-02-20 17:08:00 98 /min [facility] Systolic blood pressure 2022-02-08 16:10:00 132 mm[Hg] [facility] Diastolic blood pressure 2022-02-08 16:10:00 73 mm[Hg] [facility] Heart rate 2022-02-08 16:10:00 76 /min [facility] Body temperature 2022-02-08 16:10:00 37.06 Annie [facility] Respiratory rate 2022-02-08 16:10:00 16 /min [facility] Body height 2022-02-08 16:10:00 147.3 cm [facility] Body weight 2022-02-08 16:10:00 48.223 kg [facility] BMI 2022-02-08 16:10:00 22.22 kg/m2 [facility] Oxygen saturation in Arterial blood by Pulse oximetry 2022-02-08 16:10:00 98 /min [facility] Systolic blood pressure 2021-08-07 15:15:00 113 mm[Hg] [facility] Diastolic blood pressure 2021-08-07 15:15:00 75 mm[Hg] [facility] Heart rate 2021-08-07 15:15:00 75 /min [facility] Body temperature 2021-08-07 15:15:00 36.94 Annie [facility] Respiratory rate 2021-08-07 15:15:00 14 /min [facility] Body height 2021-08-07 15:15:00 147.3 cm [facility] Body weight 2021-08-07 15:15:00 48.308 kg [facility] BMI 2021-08-07 15:15:00 22.26 kg/m2 [facility] Oxygen saturation in Arterial blood by Pulse oximetry 2021-08-07 15:15:00 98 /min [facility] Systolic blood pressure 2021-08-06 01:32:00 137 mm[Hg] [facility] Diastolic blood pressure 2021-08-06 01:32:00 81 mm[Hg] [facility] Heart rate 2021-08-06 01:32:00 76 /min [facility] Body temperature 2021-08-06 01:32:00 36.28 Annie [facility] Respiratory rate 2021-08-06 01:32:00 16 /min [facility] Body height 2021-08-06 01:32:00 147.3 cm [facility] Body weight 2021-08-06 01:32:00 49.896 kg [facility] BMI 2021-08-06 01:32:00 22.99 kg/m2 [facility] Oxygen saturation in Arterial blood by Pulse oximetry 2021-08-06 01:32:00 99 /min [facility] Systolic blood pressure 2021-08-06 00:58:00 133 mm[Hg] [facility] Diastolic blood pressure 2021-08-06 00:58:00 77 mm[Hg] [facility] Heart rate 2021-08-06 00:58:00 70 /min [facility] Body temperature 2021-08-06 00:58:00 36.78 Annie [facility] Respiratory rate 2021-08-06 00:58:00 16 /min [facility] Body height 2021-08-06 00:58:00 147.3 cm [facility] Body weight 2021-08-06 00:58:00 48.535 kg [facility] BMI 2021-08-06 00:58:00 22.36 kg/m2 [facility] Oxygen saturation in Arterial blood by Pulse oximetry 2021-08-06 00:58:00 99 /min [facility] Systolic blood pressure 2021-07-26 16:52:00 114 mm[Hg] [facility] Diastolic blood pressure 2021-07-26 16:52:00 72 mm[Hg] [facility] Heart rate 2021-07-26 16:52:00 81 /min [facility] Body height 2021-07-26 16:52:00 147.3 cm [facility] Body weight 2021-07-26 16:52:00 47.9 kg [facility] BMI 2021-07-26 16:52:00 22.07 kg/m2 [facility] Oxygen saturation in Arterial blood by Pulse oximetry 2021-07-26 16:52:00 96 /min [facility] Procedures Procedure Date / Time Performed Performing Clinician Source XR HIPS 2 VW LEFT 2024-01-08 16:30:00 Caitlyn Rosario [facility] TOTAL HIP ARTHROPLASTY 2024-01-08 13:54:00 Ania Rosario [facility] CBC WITH DIFF 2024-01-08 12:50:00 Bhavik Leon [facility] HB ABO GROUPING 2024-01-08 12:50:00 Caitlyn Rosario [facility] CBC WITH DIFF 2024-01-08 12:50:00 Bhavik Leon [facility] HB ABO GROUPING 2024-01-08 12:50:00 Caitlyn Rosario [facility] XR HIPS 3 VW LEFT 2023-12-19 13:55:09 Caitlyn Rosario [facility] FL TIME OR (NON-REPORTABLE) 2023-09-18 15:10:43 Caitlyn Rosario [facility] FL TIME OR (NON-REPORTABLE) 2023-09-18 15:10:43 Caitlyn Rosario [facility] [id number] - MS ARTHROCENTESIS ASPIR&/INJ MAJOR JT/BURSA W/O US 2023-09-18 14:49:00 Caitlyn Rosario [facility] [id number] - CHG CT GUIDANCE NEEDLE PLACEMENT 2023-09-18 14:49:00 Caitlyn Rosario [facility] XR HIPS 2 VW LEFT 2023-05-25 14:35:08 Caitlyn Rosario [facility] PHYSICIAN CERTIFICATION STATEMENT 2023-05-23 06:01:00 Doctor Unassigned, Aguilares [facility] AUTHORIZATION FOR RELEASE OF PHI 2023-02-03 05:01:00 Doctor Unassigned, Aguilares [facility] DME/SUPPLY JUSTIFICATION 2023-01-24 05:01:00 Doc tor Unassigned, Aguilares [facility] FLU VACC([id number]),65+YR,0.5 ML,IM,ADJUVANTED,QUAD(FLU AD) 2023-01-20 20:16:03 Doctor Unassigned, Aguilares [facility] URINE CULTURE 2022-12-21 16:59:00 Doron Ortiz [facility] VITAMIN D, 25-OH 2022-12-21 16:22:00 Shakira Ortiz [facility] VITAMIN B12, LEVEL 2022-12-21 16:22:00 Maritza Bear [facility] FOLATE 2022-12-21 16:22:00 Norberto Bear [facility] VITAMIN D, 25-OH 2022-12-21 16:22:00 Shakira Ortiz [facility] TROPONIN I 2022-10-16 18:40:00 Aysha Alonso [facility] XR CHEST 2 VW 2022-10-16 17:19:52 Aysha Alonso [facility] CT HEAD WO CONTRAST 2022-10-16 17:19:28 Payton Alonso [facility] MAGNESIUM 2022-10-16 16:48:00 Aysha Alonso [facility] TROPONIN I 2022-10-16 16:48:00 Aysha Alonso [facility] COMP. METABOLIC PANEL ([id number]) 2022-10-16 16:48:00 Aysha Alonso [facility] CBC WITH DIFF 2022-10-16 16:48:00 Aysha Alonso [facility] PROTHROMBIN TIME / INR 2022-10-16 16:48:00 Aysha Alonso [facility] ACTIVATED PARTIAL THRMPLAS YEIMY 2022-10-16 16:48:00 Aysha Alonso [facility] URINALYSIS 2022-10-16 16:48:00 Aysha Alonso [facility] N-TERMINAL PRO-BNP 2022-10-16 16:48:00 Lisa Alonso [facility] CONSENT/REFUSAL FOR DIAGNOSIS AND TREATMENT 2022-10-16 16:21:49 Doctor Unassigned, Aguilares [facility] CONSENT/REFUSAL FOR DIAGNOSIS AND TREATMENT 2022-09-07 16:50:18 Doctor Unassigned, [facility]ares [facility] DEXA AXIAL (HIP AND SPINE) 2022-07-04 18:00:26 Cassia Cleaning [facility] XR CHEST 2 VW 2022-03-07 15:36:04 Doron Ortiz [facility] ASSIGNMENT OF BENEFITS 2022-03-07 15:15:21 Docto r Unassigned, [facility] MAGNESIUM 2022-02-22 09:31:00 Venecia Calloway [facility] BASIC METABOLIC PANEL (NA, K, CL, CO2, GLUCOSE, BUN, CREATININE, CA) 2022-02-22 09:31:00 Venecia Calloway [facility] TROPONIN I 2022-02-21 21:51:00 Venecia Calloway [facility] TRANSTHORACIC ECHO (TTE) COMPLETE 2022-02-21 17:31:00 Alonso Monaco [facility] MAGNESIUM 2022-02-21 11:50:00 Venecia Calloway [facility] TROPONIN I 2022-02-21 11:50:00 Venecia Calloway [facility] BASIC METABOLIC PANEL (NA, K, CL, CO2, GLUCOSE, BUN, CREATININE, CA) 2022-02-21 11:50:00 Venecia Calloway [facility] LIPID PANEL (46607)(TOTAL CHOLESTEROL, TRIGLYCERIDES, HDL) 2022-02-21 11:50:00 [facility]FF 2022-02-21 11:50:00 [facility]ia [facility] PNEUMOCOCCAL ANTIGEN 2022-02-21 06:45:00 Venecia Calloway [facility] TROPONIN I 2022-02-21 06:44:00 Venecia Calloway [facility] TROPONIN I 2022-02-20 23:23:00 Venecia Calloway [facility] THYROID STIMULATING HORMONE 2022-02-20 23:23:00 [facility]IN 2022-02-20 23:23:00 [facility]ecia [facility] MRSA / MSSA SCREEN BY PCR, LEMUEL 2022-02-20 23:23:00 Venecia Calloway [facility] CT CHEST PULMONARY ANGIOGRAM 2022-02-20 19:40:10 Rene Kay [facility] HB ECG ROUTINE & RHYTHM STRIP 2022-02-20 18:50:04 Rene Kay [facility] TROPONIN I 2022-02-20 18:45:00 Rene Kay [facility] COMP. METABOLIC PANEL (44465) 2022-02-20 18:45:00 Rene Kay [facility] CBC WITH DIFF 2022-02-20 18:45:00 Rene Kay [facility] GLYCOSYLATED HEMOGLOBIN (A1C) 2022-02-20 18:45:00 Alonso Monaco [facility] COVID-19 (ID NOW RAPID TESTING) 2022-02-20 18:45:00 Rene Kay [facility] LAB ONLY COVID INTERPRETATION 2022-02-20 18:45:00 Rene Kay [facility] POCT SARS-COV-2 ANTIGEN (BINAX NOW) 2022-02-20 18:18:00 Tracey Cedeno [facility] CONSENT/REFUSAL FOR DIAGNOSIS AND TREATMENT 2022-02-20 18:17:21 Doctor Unassigned, Aguilares [facility] POCT MOLECULAR STREP 2022-02-20 17:28:00 Unknown, Atte nding [facility] POCT MOLECULAR FLU 2022-02-20 17:27:00 Unknown, Attend ing [facility] NOTICE OF PRIVACY PRACTICES 2021-08-06 01:19:38 Doctor Unassigned, Aguilares [facility] CONSENT/REFUSAL FOR DIAGNOSIS AND TREATMENT 2021-08-06 01:13:34 Doctor Unassigned, Aguilares [facility] ASSIGNMENT OF BENEFITS 2021-08-06 00:29:21 Docto r Unassigned, Aguilares [facility] Encounters Start Date/Time End Date/Time Encounter Type Admission Type Attending [facility] Facility Care Department Encounter ID Source 2024-02-22 10:00:00 2024-02-22 10:00:00 Outpatient R CAITLYN ROSARIO [facility] [id number] [facility] 2024-02-14 00:00:00 2024-02-15 10:15:10 Telephone Caitlyn Rosario [facility] 1.2.840.114 350.1.13.10 4.2.7.2.686 [id number] [facility] 2024-02-15 10:04:25 2024-02-15 10:04:25 Outpatient R JERRY IBARRA [facility] [id number] [facility] 2024-01-10 00:00:00 2024-02-10 18:20:07 Patient Secure Msg Doctor Unassigned, Aguilares Doctor Unassigned, Aguilares [facility] 1.2.840.114 350.1.13.10 4.2.7.2.686 [id number] [facility] 2024-02-08 00:00:00 2024-02-08 09:14:13 Telephone Loyda Mcdonough [facility] 1.2.840.114 350.1.13.10 4.2.7.2.686 [id number] [facility] 2024-01-31 00:00:00 2024-01-31 16:15:09 Telephone Caitlyn Rosario [facility] 1.2840.114 350.1.13.10 4.2.7.2.686 [id number] [facility] 2024-01-22 14:51:15 2024-01-22 23:59:00 Hospital En[facility] 1.2840.114 350.1.13.10 4.2.7.2.686 [id number] [facility] 2024-01-22 14:30:00 2024-01-22 15:19:11 Outpatient R CAITLYN ROSARIO [facility] [id number] [facility] 2024-01-22 14:30:00 2024-01-22 15:19:11 Office Visit Caitlyn Ros[facility] 1.2.840.114 350.1.13.10 4.2.7.2.686 [id number] [facility] 2024-01-19 00:00:00 2024-01-19 13:47:23 Telephone Caitlyn Rosario [facility] 1.2840.114 350.1.13.10 4.2.7.2.686 [id number] [facility] 2024-01-10 00:00:00 2024-01-12 09:06:05 Telephone Loyda Mcdonough [facility] 1.284.114 350.1.13.10 4.2.7.2.686 [id number] [facility] 2024-01-11 09:00:00 2024-01-11 09:23:32 Outpatient R CAITLYN ROSARIO [facility] [id number] [facility] 2024-01-11 09:00:00 2024-01-11 09:23:32 Office Visit JuanitaBrianna mccall Caitlyn Rosario [facility] BU[facility] 1.2.840.114 350.1.13.10 4.2.7.2.686 [id number] [facility] 2024-01-09 00:00:00 2024-01-10 15:33:06 Telephone Caitlyn Rosario [facility] 1.84.114 350.1.13.10 4.2.7.2.686 [id number] [facility] 2024-01-08 07:32:00 2024-01-08 14:20:00 Outpatient R CAITLYN ROSARIO [facility] [id number] [facility] 2024-01-08 07:32:00 2024-01-08 14:20:00 Hospital Encounter Caitlyn Rosario [facility] 1.20.114 350.1.13.10 4.2.7.2.686 [id number] [facility] 2024-01-08 09:20:00 2024-01-08 12:19:[address] [facility] 1.2840.114 350.1.13.10 4.2.7.2.686 [id number] [facility] 2024-01-05 00:00:00 2024-01-05 14:21:57 Telephone Caitlyn Rosario [facility] 1.84.114 350.1.13.10 4.2.7.2.686 [id number] [facility] 2024-01-02 09:15:00 2024-01-02 09:30:00 Health Care Law Specialist Visit 2, Adc Lab Caitlyn Rosario 2, Adc Lab [facility] BUILDING 1.84.114 350.1.13.10 4.2.7.2.686 [id number] [facility] 2024-01-02 09:15:00 2024-01-02 09:15:00 Outpatient R CAITLYN ROSARIO [facility] [id number] [facility] 2023-12-29 10:15:00 2023-12-29 11:12:05 Outpatient R CAITLYN ROSARIO [facility] [id number] [facility] 2023-12-29 10:15:00 2023-12-29 11:12:05 Ancillary Visit Kumar Choe Craig L Brown, Robert F [facility] BUILDING 1.840.114 350.1.13.10 4.2.7.2.686 [id number] [facility] 2023-12-19 08:40:11 2023-12-19 23:59:00 Outpatient R CAITLYN ROSARIO [facility] [id number] [facility] 2023-12-19 08:40:11 2023-12-19 23:59:00 Hospital Encounter Caitlyn Rosario [facility] BU[facility] 1.84.114 350.1.13.10 4.2.7.2.686 [id number] [facility] 2023-12-19 00:00:00 2023-12-19 12:03:24 Prep For Surgery [facility] 1.2.840.114 350.1.13.10 4.2.7.2.686 [id number] [facility] 2023-12-19 09:00:00 2023-12-19 09:27:53 Office Visit [facility] 1..840.114 350.1.13.10 4.2.7.2.686 [id number] [facility] 2023-12-15 10:30:00 2023-12-15 11:45:04 Outpatient R JERRY IBARRA [facility] [id number] [facility] 2023-12-15 10:30:00 2023-12-15 11:45:04 Office Visit Jerry Ibarra [facility] OFF[facility] BU[facility] 1..840.114 350.1.13.10 4.2.7.2.686 [id number] [facility] 2023-11-10 09:30:00 2023-11-10 09:30:00 Outpatient R JERRY IBARRA [facility] [id number] [facility] 2023-11-07 09:30:00 2023-11-07 09:30:00 Office Visit [facility] 1..840.114 350.1.13.10 4.2.7.2.686 [id number] [facility] 2023-11-07 09:30:00 2023-11-07 09:29:45 Outpatient R CAITLYN ROSARIO [facility] [id number] [facility] 2023-10-26 15:20:00 2023-10-26 15:52:36 Outpatient R LOYDA MCDONOUGH [facility] [id number] [facility] 2023-10-26 15:20:00 2023-10-26 15:52:36 [facility] 1..840.114 350.1.13.10 4.2.7.2.686 [id number] [facility] 2023-10-24 14:30:00 2023-10-24 15:00:00 Office [facility] 1..840.114 350.1.13.10 4.2.7.2.686 [id number] [facility] 2023-10-24 14:30:00 2023-10-24 14:30:00 [facility] [id number] 2023-10-24 08:00:00 2023-10-24 08:00:00 [facility] [id number] [facility] 2023-09-11 00:00:00 2023-10-14 18:19:46 Patient Secure Msg Doctor Unassigned, Aguilares [facility] 1..840.114 350.1.13.10 4.2.7.2.686 [id number] [facility] 2023-10-05 09:30:00 2023-10-05 09:32:11 Outpatient R CAITLYN ROSARIO [facility] [id number] [facility] 2023-10-05 09:30:00 2023-10-05 09:32:11 Office Visit Caitlyn Rosario [facility] 1..840.114 350.1.13.10 4.2.7.2.686 [id number] [facility] 2023-09-18 08:52:00 2023-09-18 11:05:00 Outpatient R CAITLYN ROSARIO [facility] S[facility] [id number] [facility] 2023-09-18 08:52:00 2023-09-18 11:05:00 Hospital Encounter Caitlyn Rosario [facility] [place] 1.2.840.114 350.1.13.10 4.2.7.2.686 [id number] [facility] 2023-09-18 10:40:00 2023-09-18 11:01:00 Surgery Caitlyn Rosario [facility] [place] 1.2.840.114 350.1.13.10 4.2.7.2.686 [id number] [facility] 2023-09-12 12:15:00 2023-09-12 12:30:00 Health Care Law Specialist Visit Pob, Adc Lab Main Caitlyn Rosario [facility] PROFESSIO NAL BUILDING 1.2840.114 350.1.13.10 4.2.7.2.686 [id number] [facility] 2023-09-12 00:00:00 2023-09-12 08:35:06 Prep For Surgery Caitlyn Rosario [facility] OFF[facility] BUILD[facility] 1.2.840.114 350.1.13.10 4.2.7.2.686 [id number] [facility] 2023-09-12 08:30:00 2023-09-12 08:30:00 Office Visit Caitlyn Rosario [facility] OFF[facility] BU[facility] 1.2840.114 350.1.13.10 4.2.7.2.686 [id number] [facility] 2023-09-12 08:30:00 2023-09-12 08:28:13 Outpatient R CAITLYN ROSARIO [facility] [id number] [facility] 2023-09-08 13:00:00 2023-09-08 13:31:32 Outpatient R LOYDA MCDONOUGH [facility] [id number] [facility] 2023-09-08 13:00:00 2023-09-08 13:31:32 Office Visit Sharonda Loyda [facility] BU[facility] 1..840.114 350.1.13.10 4.2.7.2.686 [id number] [facility] 2023-08-24 09:20:00 2023-08-24 09:20:00 Outpatient R SHARONDALOYDA [facility] [id number] [facility] 2023-08-21 10:20:00 2023-08-21 10:20:00 Outpatient R SHARONDA LOYDA SHARONDA LOYDA [facility] [id number] [facility] 2023-06-15 09:45:00 2023-06-15 09:45:00 Office Visit Caitlyn Rosario [facility] BU[facility] 1..840.114 350.1.13.10 4.2.7.2.686 [id number] [facility] 2023-06-15 09:45:00 2023-06-15 09:38:21 Outpatient R CAITLYN ROSARIO [facility] [id number] [facility] 2023-06-07 17:42:00 2023-06-07 23:59:00 Hospital Encounter Caitlyn Rosario [facility] 1..840.114 350.1.13.10 4.2.7.2.686 [id number] [facility] 2023-06-07 00:00:00 2023-06-07 23:59:00 Outpatient R CAITLYN ROSARIO CAITLYN [facility] OUT [id number] [facility] 2023-05-31 13:47:32 2023-05-31 23:59:00 Outpatient R CAITLYN ROSARIO [facility] [id number] [facility] 2023-05-31 13:47:32 2023-05-31 23:59:00 Hospital Encounter Caitlyn Rosario [facility] 1..840.114 350.1.13.10 4.2.7.2.686 [id number] [facility] 2023-05-31 09:45:00 2023-05-31 10:00:00 Health Care Law Specialist Visit Lab, [facility] Caitlyn Rosario [facility] OFF[facility] BUILD[facility] 1..840.114 350.1.13.10 4.2.7.2.686 [id number] [facility] 2023-05-30 09:58:39 2023-05-30 23:59:00 Outpatient R CAITLYN ROSARIO CAITLYN [facility] [id number] [facility] 2023-05-30 09:58:39 2023-05-30 23:59:00 Hospital Encounter Caitlyn Rosario [facility] 1..840.114 350.1.13.10 4.2.7.2.686 [id number] [facility] 2023-05-29 00:00:00 2023-05-29 00:00:00 Telephone Pawan Caitlyn [facility] OFF[facility] BUILD[facility] 1..840.114 350.1.13.10 4.2.7.2.686 [id number] [facility] 2023-05-29 00:00:00 2023-05-29 00:00:00 Telephone [facility] 1.840.114 350.1.13.10 4.2.7.2.686 [id number] [facility] 2023-05-25 08:25:14 2023-05-25 23:59:00 Hospital Encounter [facility]aitlyn Ros[facility] 1..114 350.1.13.10 4.2.7.2.686 [id number] [facility] 2023-05-25 08:45:00 2023-05-25 09:11:17 Outpatient R ROSARIOCAITLYN ROSARIO [facility] [id number] [facility] 2023-05-25 08:45:00 2023-05-25 09:11:17 Office Visit Caitlyn [facility]ra[facility] 1.840.114 350.1.13.10 4.2.7.2.686 [id number] [facility] 2023-05-23 00:00:00 2023-05-23 00:00:[address] [facility] 1.840.114 350.1.13.10 4.2.7.2.686 [id number] [facility] 2023-05-23 00:00:00 2023-05-23 00:00:00 Orders Only Doctor Unassigned, Aguilares [facility] 1.84.114 350.1.13.10 4.2.7.2.686 [id number] [facility] 2023-05-22 00:00:00 2023-05-22 00:00:00 Telephone ObMarie [facility] BUILDING 1.84.114 350.1.13.10 4.2.7.2.686 [id number] [facility] 2023-05-22 00:00:00 2023-05-22 00:00:00 Telephone Doron Ortiz [facility] BUILD[facility] 1..840.114 350.1.13.10 4.2.7.2.686 [id number] [facility] 2023-05-14 09:00:00 2023-05-14 09:20:00 Urgent Care Meseret Nogueira, Attending [facility] BUILD[facility] 1..840.114 350.1.13.10 4.2.7.2.686 [id number] [facility] 2023-05-14 09:00:00 2023-05-14 09:00:00 Outpatient R MESERET NOGUEIRA [facility] [id number] [facility] 2023-03-23 15:00:00 2023-03-23 15:00:00 Outpatient R CAITLYN ROSARIO [facility] [id number] [facility] 2023-03-23 00:00:00 2023-03-23 00:00:00 Telephone Caitlyn Rosario [facility] 1..840.114 350.1.13.10 4.2.7.2.686 [id number] [facility] 2023-03-22 08:40:00 2023-03-22 08:40:00 Outpatient R OBI-Subhash SALAZARZOMA OBI-Subhash SALAZARZOMA [facility] [id number] [facility] 2023-03-03 00:00:00 2023-03-03 00:00:00 Telephone Doron Ortiz [facility] BUILDING 1.2.840.114 350.1.13.10 4.2.7.2.686 [id number] [facility] 2023-02-21 00:00:00 2023-02-21 00:00:00 Telephone Doron Ortiz [facility] 1.2.840.114 350.1.13.10 4.2.7.2.686 [id number] [facility] 2023-02-20 00:00:00 2023-02-20 00:00:00 Telephone Doron Ortiz [facility] 1.2.840.114 350.1.13.10 4.2.7.2.686 [id number] [facility] 2023-02-03 00:00:00 2023-02-03 00:00:00 Orders Only Doctor Unassigned, Aguilares [facility] 1.2.840.114 350.1.13.10 4.2.7.2.686 [id number] [facility] 2023-02-02 00:00:00 2023-02-02 00:00:00 Telephone Doron Ortiz [facility] 1.2.840.114 350.1.13.10 4.2.7.2.686 [id number] [facility] 2023-01-24 00:00:00 2023-01-24 00:00:00 Pre Visit Outreach Doron Ortiz [facility] 1.2.840.114 350.1.13.10 4.2.7.2.686 [id number] [facility] 2023-01-24 00:00:00 2023-01-24 00:00:00 Orders Only Doctor Unassigned, Aguilares [facility] 1.2.840.114 350.1.13.10 4.2.7.2.686 [id number] [facility] 2023-01-20 15:20:00 2023-01-20 15:40:00 Imm/Inj Visit Nurse, Rey Hawleytanzoey [facility] 1.2.840.114 350.1.13.10 4.2.7.2.686 [id number] [id number] [facility] 2023-01-20 15:20:00 2023-01-20 15:20:00 Outpatient R DIANATAVARESREY PULIDOTARANCHANDU [facility] [id number] [facility] 2023-01-20 00:00:00 2023-01-20 00:00:00 Telephone Shakira Ortizsubhash [facility] BUILDING 1.2.840.114 350.1.13.10 4.2.7.2.686 [id number] [id number] [facility] 2023-01-19 00:00:00 2023-01-19 00:00:00 Telephone Doron Ortiz [facility] NAL BUILDING 1.2.840.114 350.1.13.10 4.2.7.2.686 [id number] [facility] 2022-12-28 13:00:00 2022-12-28 13:00:00 Outpatient R TAVARES ORTIZSanchezSubhash GUERREROTONY DORON [facility] [id number] [facility] 2022-12-23 00:00:00 2022-12-23 00:00:00 Telephone Doron Ortiz [facility] NAL BUILDING 1.2.840.114 350.1.13.10 4.2.7.2.686 [id number] [facility] 2022-12-21 11:15:00 2022-12-21 11:30:00 Health Care Law Specialist Visit 2, Adc Lab Doron Ortiz [facility] PROFESSIO NAL BUILDING 1.2.840.114 350.1.13.10 4.2.7.2.686 [id number] [facility] 2022-12-21 10:30:00 2022-12-21 11:12:30 Outpatient R [facility] [id number] [facility] 2022-12-21 10:30:00 2022-12-21 11:12:30 Office Visit [facility] 1.2.840.114 350.1.13.10 4.2.7.2.686 [id number] [facility] 2022-12-21 00:00:00 2022-12-21 00:00:00 Telephone [facility] 1.2.840.114 350.1.13.10 4.2.7.2.686 [id number] [facility] 2022-11-24 10:48:22 2022-11-24 23:59:00 Outpatient R JERRY IBARRA [facility] [id number] [facility] 2022-11-24 10:48:22 2022-11-24 23:59:00 Hospital Encounter Jerry Ibarra [facility] 1.2.840.114 350.1.13.10 4.2.7.2.686 [id number] [facility] 2022-11-11 16:30:00 2022-11-11 17:02:18 Outpatient R JERRY IBARRA [facility] [id number] [facility] 2022-11-11 16:30:00 2022-11-11 17:02:18 Office Visit Jerry Ibarra [facility] 1..840.114 350.1.13.10 4.2.7.2.686 [id number] [facility] 2022-10-21 09:00:00 2022-10-21 09:30:00 Office Visit Doron Ortiz [facility] 1..840.114 350.1.13.10 4.2.7.2.686 [id number] [facility] 2022-10-21 09:00:00 2022-10-21 09:00:00 Outpatient R DORON ORTIZ OGECHUKWU [facility] [id number] [facility] 2022-10-16 11:24:00 2022-10-16 15:40:00 Emergency [facility] 1..840.114 350.1.13.10 4.2.7.2.686 [id number] [facility] 2022-10-16 10:40:00 2022-10-16 12:12:17 Outpatient R TRACEY CEDENO [facility] [id number] [facility] 2022-10-16 10:40:00 2022-10-16 12:12:17 Outpatient R TRACEY CEDENO [facility] ERT [id number] [facility] 2022-10-16 10:40:00 2022-10-16 11:00:00 Urgent Care Tracey Cedeno Unknown, Attending [facility] 1..840.114 350.1.13.10 4.2.7.2.686 [id number] [facility] 2022-09-07 12:00:00 2022-09-07 12:59:31 Outpatient R DORON ORTIZ OGECHUKWU [facility] [id number] [facility] 2022-09-07 12:00:00 2022-09-07 12:59:31 Office Visit Doron Ortiz [facility] 1.2.840.114 350.1.13.10 4.2.7.2.686 [id number] [facility] 2022-09-07 00:00:00 2022-09-07 00:00:00 Orders Only Doctor Unassigned, Aguilares [facility] 1.2840.114 350.1.13.10 4.2.7.2.686 [id number] [facility] 2022-07-22 09:30:00 2022-07-22 09:30:00 Outpatient R JERRY IBARRA [facility] [id number] [facility] 2022-07-22 09:30:00 2022-07-22 09:30:00 Outpatient R JERRY IBARRA [facility] [id number] [facility] 2022-07-20 10:30:00 2022-07-20 10:51:01 Outpatient R DORON ORTIZ [facility]GE[facility]WU [facility] [id number] [facility] 2022-07-20 10:30:00 2022-07-20 10:51:01 [facility] 1.2.840.114 350.1.13.10 4.2.7.2.686 [id number] [facility] 2022-07-20 09:30:00 2022-07-20 10:14:13 Office Visit Doron Ortiz [facility] 1.2.840.114 350.1.13.10 4.2.7.2.686 [id number] [facility] 2022-07-04 12:13:54 2022-07-04 23:59:00 Outpatient R UNKNOWN, ATTENDING [facility] [id number] [facility] 2022-07-04 12:13:54 2022-07-04 23:59:00 Hospital Encounter Unknown, Attending [facility] 1.840.114 350.1.13.10 4.2.7.2.686 [id number] [facility] 2022-06-29 00:00:00 2022-06-29 00:00:00 Outpatient CASSIA PERDUE [facility] [id number] [facility] 2022-04-22 00:00:00 2022-04-22 00:00:00 Telephone Tennille Garcia [facility] 1..840.114 350.1.13.10 4.2.7.2.686 [id number] [facility] 2022-04-22 00:00:00 2022-04-22 00:00:00 Patient Secure Msg Doctor Unassigned, Aguilares [facility] 1.840.114 350.1.13.10 4.2.7.2.686 [id number] [facility] 2022-04-21 10:30:00 2022-04-21 12:29:43 Outpatient R KATIE CORTEZ [facility] [id number] [facility] 2022-04-21 10:30:00 2022-04-21 10:45:00 Office Visit Katie Cortez [facility] 1..840.114 350.1.13.10 4.2.7.2.686 [id number] [facility] 2022-04-21 09:00:00 2022-04-21 09:00:[address] [facility] [id number] [facility] 2022-04-21 09:00:00 2022-04-21 09:00:00 [facility]patient [facility] [id number] [facility] 2022-04-20 14:30:00 2022-04-20 15:33:13 Office Visit Diana, Ogleslie [facility] 1..840.114 350.1.13.10 4.2.7.2.686 [id number] [facility] 2022-04-20 14:30:00 2022-04-20 15:33:13 Outpatient R DIANA RE[facility]LESLIE [facility] [id number] [facility] 2022-04-15 09:37:22 2022-04-15 23:59:00 Outpatient R TENNILLE GARCIA [facility] [id number] [facility] 2022-04-15 12:20:00 2022-04-15 12:40:00 Urgent Care Mason Coronado, [facility]ending [facility] 1.2.840.114 350.1.13.10 4.2.7.2.686 [id number] [facility] 2022-03-16 10:00:00 2022-03-16 10:00:00 Outpatient R TENNILLE GARCIA [facility] [id number] [facility] 2022-03-07 09:15:00 2022-03-07 23:59:00 Hospital Encounter Tavares Ortizsanchezsubhash [facility] 1..840.114 350.1.13.10 4.2.7.2.686 [id number] [facility] 2022-03-07 08:30:00 2022-03-07 09:03:55 [facility] 1.84.114 350.1.13.10 4.2.7.2.686 [id number] [facility] 2022-03-07 08:30:00 2022-03-07 09:03:55 Outpatient R DORON ORTIZ OGECHUKWU [facility] [id number] [facility] 2022-03-07 00:00:00 2022-03-07 00:00:00 Orders Only Doctor Unassigned, Aguilares [facility] 1..114 350.1.13.10 4.2.7.2.686 [id number] [facility] 2022-03-02 08:00:00 2022-03-02 08:38:49 Outpatient R TENNILLE GARCIA [facility] [id number] [facility] 2022-03-02 08:00:00 2022-03-02 08:38:49 Office Visit Tennille Garcia [facility] 1.84.114 350.1.13.10 4.2.7.2.686 [id number] [facility] 2022-02-28 08:00:00 2022-02-28 08:00:00 Outpatient R TENNILLE GARCIA [facility] [id number] [facility] 2022-02-23 00:00:00 2022-02-23 00:00:00 Patient Secure Msg Doctor Unassigned, Aguilares [facility] 1..114 350.1.13.10 4.2.7.2.686 [id number] [facility] 2022-02-23 00:00:00 2022-02-23 00:00:00 Transition of Care Vlad Huddleston 1..114 350.1.13.10 4.2.7.2.686 [id number] [facility] 2022-02-20 12:32:00 2022-02-22 17:50:00 Inpatient X ELLI VENECIA [facility] [id number] [facility] 2022-02-20 12:32:00 2022-02-22 17:50:00 Hospital Encounter Rene KayVenecia [facility] 1.2.840.114 350.1.13.10 4.2.7.2.686 [id number] [facility] 2022-02-20 10:00:00 2022-02-20 12:05:55 Outpatient R TRACEY CEDENO [facility] [id number] [facility] 2022-02-20 10:00:00 2022-02-20 12:05:55 Urgent Care Tracey Cedeno Unknown, Attending [facility] 1.2.840.114 350.1.13.10 4.2.7.2.686 [id number] [facility] 2022-02-08 10:40:00 2022-02-08 11:27:06 Outpatient R MESERET NOGUEIRA [facility] [id number] [facility] 2022-02-08 10:40:00 2022-02-08 11:00:00 Urgent Care Meseret Nogueira Unknown, Attending [facility] 1.2.840.114 350.1.13.10 4.2.7.2.686 [id number] [facility] 2021-08-07 10:20:00 2021-08-07 10:53:57 Outpatient R MARIA DOLORES GAXIOLA [facility] [id number] [facility] 2021-08-07 10:20:00 2021-08-07 10:53:57 Urgent Care Amelia Garcia Kimberly J [facility] 1..840.114 350.1.13.10 4.2.7.2.686 [id number] [facility] 2021-08-05 20:42:00 2021-08-05 20:56:00 Emergency Kevin Goode [facility] 1..840.114 350.1.13.10 4.2.7.2.686 [id number] [facility] 2021-08-05 19:45:00 2021-08-05 20:06:37 Outpatient R MARIA DOLORES GAXIOLA [facility] [id number] [facility] 2021-08-05 19:45:00 2021-08-05 20:05:00 Nurse Visit Nurse, Zuhair Salcedo [facility] Maria Dolores Gaxiola [facility] 1..840.114 350.1.13.10 4.2.7.2.686 [id number] [facility] 2021-08-05 19:45:00 2021-08-05 19:45:00 Outpatient R MARIA DOLORES GAXIOLA [facility] [id number] [facility] 2021-08-05 19:40:00 2021-08-05 19:40:00 Outpatient R MARIA DOLORES GAXIOLA [facility] [id number] [facility] 2021-08-05 00:00:00 2021-08-05 00:00:00 Orders Only Doctor Unassigned, Aguilares [facility] 1.840.114 350.1.13.10 4.2.7.2.686 [id number] [facility] 2021-07-27 08:30:00 2021-07-27 08:30:00 Outpatient MINESH DE LA FUENTE [facility] [id number] [facility] 2021-07-27 08:30:00 2021-07-27 08:30:00 Outpatient MINESH DE LA FUENTE [facility] [id number] [facility] 2021-07-26 12:00:00 2021-07-26 12:30:00 [facility] 1.2.840.114 350.1.13.10 4.2.7.2.686 [id number] [facility] 2021-07-26 12:00:00 2021-07-26 12:00:00 Outpatient R KEITH MEASE [facility] [id number] [facility] 2021-07-26 12:00:00 2021-07-26 12:00:00 Outpatient R KEITH MEASE [facility] [id number] [facility] 2021-04-20 08:00:00 2021-04-20 09:08:36 Outpatient R MARITZA BEAR [facility] [id number] [facility] 2021-04-20 08:00:00 2021-04-20 09:08:36 Office Visit Maritza Bear [facility] 1.2.840.114 350.1.13.10 4.2.7.2.686 [id number] [facility] 2021-04-20 08:00:00 2021-04-20 09:08:36 Outpatient R MARITZA BEAR [facility] [id number] [facility] 2021-02-23 00:00:00 2021-02-23 00:00:00 Case Management Maritza Bear [facility] 1.2.840.114 350.1.13.10 4.2.7.2.686 [id number] [facility] 2021-02-09 13:20:00 2021-02-09 13:20:00 Outpatient MINESH DE LA FUENTE [facility] [id number] [facility] 2021-02-09 13:11:36 2021-02-09 13:11:46 Imm/Inj Visit Nurse, Minesh Granger [facility] Professio nal Building 1.2.840.114 350.1.13.10 4.2.7.2.686 [id number] [facility] 2021-01-28 08:11:17 2021-01-28 08:26:17 Health Care Law Specialist Visit 2, Adc Lab Maritza Bear [facility] Professio nal Building 1.2.840.114 350.1.13.10 4.2.7.2.686 [id number] [facility] 2021-01-28 08:00:00 2021-01-28 08:00:00 Outpatient R MARITZA BEAR [facility] [id number] [facility] 2020-11-24 16:00:00 2020-11-24 16:00:00 Outpatient R KATIE CORTEZ [facility] [id number] [facility] 2020-08-20 10:20:00 2020-08-20 10:20:00 Outpatient R [facility] [id number] [facility] 2020-06-30 17:40:00 2020-06-30 17:40:00 Outpatient LIAM ZUNIGA [facility] [id number] [facility] 2020-06-05 00:00:00 2020-06-05 00:00:00 Outpatient JERRY LEY [facility] [id number] [facility] 2020-05-29 10:30:00 2020-05-29 10:30:00 Outpatient JERRY LEY [facility] [id number] [facility] 2020-05-19 09:50:00 2020-05-19 09:50:00 Outpatient LILLI POOLE [facility] [id number] [facility] 2020-04-21 08:40:00 2020-04-21 08:40:00 Outpatient R MARGIE LILLI [facility] [id number] [facility] 2020-04-20 08:00:00 2020-04-20 08:00:00 Outpatient MARITZA WELLS [facility] [id number] [facility] 2020-01-17 09:15:00 2020-01-17 09:15:00 Outpatient R BEAR MARITZA [facility] [id number] [facility] 2019-06-07 00:00:00 2019-06-07 00:00:00 Orders Only Doctor Unassigned, Aguilares [facility] 1.2.840.114 350.1.13.10 4.2.7.2.686 [id number] [facility] 2019-06-07 00:00:00 2019-06-07 00:00:00 Telephone Jerry Ibarra [facility] 1..840.114 350.1.13.10 4.2.7.2.686 [id number] [facility] 2019-05-30 07:58:23 2019-05-30 23:59:00 Outpatient R JERRY IBARRA [facility] [id number] [facility] 2019-05-30 07:58:00 2019-05-30 23:59:00 Hospital Encounter Jerry Ibarra [facility] 1..840.114 350.1.13.10 4.2.7.2.686 [id number] [facility] 2019-05-24 09:00:00 2019-05-24 10:12:14 Outpatient R JERRY IBARRA [facility] [id number] [facility] 2019-05-24 08:51:18 2019-05-24 10:12:14 Office Visit Jerry Ibarra [facility] Building 1.2.840.114 350.1.13.10 4.2.7.2.686 [id number] [facility] 2019-04-18 07:00:00 2019-04-18 08:01:09 Outpatient MARITZA WELLS [facility] [id number] [facility] 2017-07-04 03:30:00 2017-07-04 03:30:00 Outpatient Che_P [facility] Results Test Description Test Time Test Comments Results Resul t Comments Source XR HIPS 2 VW LEFT 2024-01-09 04:48:05 XR HIPS 2 VW LEFT HISTORY: ?Postop Total Hip ? COMPARISON: 12/19/2023 FINDINGS: Intact arthroplasty. Alignment is near-anatomic. No acute fracture orloosening. Soft tissue edema and emphysema, commensurate with postoperativestat e. [facility] [id number] 13:06:17* Test Item Value Reference Range Interpretation [...] 32.9 g/dL 31.6-35.1 RDW-SD (test code = 60150-0) 43.2 fL 39.0-49.9 RDW-CV (test code = 788-0) 13.1 % 12.0-15.5 PLT (test code = 777-3) 286 166-358 MPV (test code = 32267-9) 9.4 fL 9.5-12.9 L NRBC/100 WBC (test code = 6162329457) 0.0 0.0-10.0 NRBC x10^3 (test code = 1095772212) See_Comment [Automated messa ge] The system which generated this result transmitted reference range: 10*3/?L. The reference range was not used to interpret this result as normal/abnormal. GRAN MAT (NEUT) % (test code = 770-8) 71.3 % IMM GRAN % (test code = 2118576833) 0.30 % LYMPH % (test code = 736-9) 14.4 % MONO % (test code = 5905-5) 11.0 % EOS % (test code = 713-8) 2.3 % BASO % (test code = 706-2) 0.7 % GRAN MAT x10^3(ANC) (test code = 8362984942) 4.98 10*3/uL 1.88-7.09 IMM GRAN x10^3 (test code = 2036224371) 0.00-0.06 LYMPH x10^3 (test code = 731-0) 1.01 10*3/uL 1.32-3.29 L MONO x10^3 (test code = 742-7) 0.77 10*3/uL 0.33-0.92 EOS x10^3 (test code = 711-2) 0.16 10*3/uL 0.03-0.39 BASO x10^3 (test code = 704-7) 0.05 10*3/uL 0.01-0.07 Lab Interpretation (test code = 01404-2) [facility] This is a pre-surgical type and screen. ONCE [id number] 13:04:00* Test Item Value Reference Range Interpretation Comme nts ABO & RH (test code = 20) O POSITIVE IAT (test code = 1185) Negative [facility] This is a pre-surgical type and screen. ONCE [id number] 13:04:00* Test Item Value Reference Range Interpretation Comme nts ABO & RH (test code = 20) O POSITIVE IAT (test code = 1185) Negative [facility] VW [id number] 22:10:11EXAM: XR HIPS 3 VW LEFT HISTORY: LT THR COMPARISON: Left hip radiographs, 05/25/2023. FINDINGS: Radiographs of the left hip demonstrate no acute fracture or dislocation.There is progressive severe bilateral hip joint osteoarthrosis, rightgreater than left. Lower lumbar degenerative disc disease. Pubic symphysisdegenerative changes are noted. Osseous demineralization is noted. [facility] OR (NON-REPORTABLE)2023-09-18 15:12:04 These images do not require a Radiology diagnostic report.[facility] TIME OR (NON-REPORTABLE)2023-09-18 15:12:04These images do not require a Radiology diagnostic report.[facility] VW [id number] 15:23:53XR HIPS 2 VW LEFT and AP pelvis. INDICATION: hip pain ? COMPARISON: 11/24/20 FINDINGS:No acute fracture or dislocation.Advanced degenerative changes of bilateral hip joints with primarily axialmigration of the femoral heads, subchondral sclerosis and osteophytosis.Additional degenerative changes at the bilateral sacroiliac joints andpubic symphysis. [facility] [id number] 19:50:23* Test Item Value Reference Range Interpretation Comme nts TROPONIN I (test code = 7005356039) 0.034 ng/mL <=0.034 MADAY (test code = [...] of biotin. Lab Interpretation (test code = 82782-5) Normal [facility] [id number] 17:30:40* Test Item Value Reference Range Interpretation Comme nts TROPONIN I (test code = 9406519939) 0.035 ng/mL <=0.034 H MADAY (test code [...] of biotin. Lab Interpretation (test code = 16235-9) Abnormal [facility]MINAL [id number] 17:27:39* Test Item Value Reference Range Interpretation Comme [facility] NT-proBNP (test code = 5019082417) 126 pg/mL <=450 MADAY (test code = MADAY) Biotin has been reported to cause a negative bias, interpret results relative to patient's use of biotin. Lab Interpretation (test code = 77068-3) Normal [facility] HospitalACTIVATED PARTIAL THRMPLAS [id number] 17:26:58* Test Item Value Reference Range Interpretation Comme [facility] APTT Patient (test code = 3173-2) 28 See_Comment [Automated message] The system which generated this result transmitted reference range: 23 - 38 Seconds. The reference range was not used to interpret this result as normal/abnormal. MADAY (test code = MADAY) The [facility] patient population mean normal value for aPTT is 30 seconds. Lab Interpretation (test code = 30818-5) Normal [facility] HospitalPROTHROMBIN TIME / [id number] 17:24:57* Test Item Value Reference Range Interpretation Comme [facility] PROTIME PATIENT (test code = 5964-2) 12.8 See_Comment [Automated Honka ge] The system which generated this result transmitted reference range: 12.0 - 14.7 Seconds. The reference range was not used to interpret this result as normal/abnormal. INR (test code = 6301-6) 1.0 Normal INR <1.1; Warfarin Therapeutic range 2.0 to 3.0 or 2.5 to 3.5, depending upon the indications. Lab Interpretation (test code = 65415-9) Normal [facility]2023-07-02 17:19:19* Test Item Value Reference Range Interpretation Comme nts MAGNESIUM (test code = 6440698769) 2.0 mg/dL 1.7-2.4 Lab Interpretation (test cod e = 28725-1) Normal [facility] Hospital[facility]. METABOLIC PANEL (12274)2022-10-16 17:18:59* Test Item Value Reference Range Interpretation Comme nts NA (test code = 5319254527) 138 mmol/L 135-145 K (test code = 1120472422) 4.1 mmol/L 3.5-5.0 CL (test code = 3891711199) 102 mmol/L 98-108 CO2 TOTAL (test code = 3112307514) 27 mmol/L 23-31 AGAP (test code = 3802673135) 9 2-16 BUN (test code = 6111863230) 23 mg/dL 7-23 GLUCOSE (test code = 6888564189) 159 mg/dL 70-110 H CREATININE (test code = 6562388183) 0.65 mg/dL 0.50-1.04 TOTAL BILI (test code = 2480990858) 0.6 mg/dL 0.1-1.1 CALCIUM (test code = 7040061791) 9.5 mg/dL 8.6-10.6 T PROTEIN (test code = 1646020098) 6.8 g/dL 6.3-8.2 ALBUMIN (test code = 8669234431) 4.2 g/dL 3.5-5.0 ALK PHOS (test code = 6958591078) 83 U/L 34-122 ALTv (test code = 1742-6) 28 U/L 5-35 AST(SGOT) (test code = 6959668251) 33 U/L 13-40 eGFR (test code = 1891649684) 87.0 mL/min/1.73m2 MADAY (test code = MADAY) [...] imaging tests). Lab Interpretation (test code = 22709-5) Abnormal [facility] WITH [id number] 17:06:53* Test Item Value Reference Range Interpretation Comme nts WBC (test code = 6690-2) 7.26 See_Comment [Motribe] The system which generated this result transmitted reference range: 4.30 - 11.10 10*3/?L. The reference range was not used to interpret this result as normal/abnormal. RBC (test code = 789-8) 4.58 See_Comment [Motribe] The system which generated this result transmitted [...] 33.9 g/dL 31.6-35.1 RDW-SD (test code = 76978-8) 49.8 fL 39.0-49.9 RDW-CV (test code = 788-0) 14.9 % 12.0-15.5 PLT (test code = 777-3) 240 See_Comment [Automated messa ge] The system which generated this result transmitted reference range: 166 - 358 10*3/?L. The reference range was not used to interpret this result as normal/abnormal. MPV (test code = 39385-1) 10.2 fL 9.5-12.9 NRBC/100 WBC (test code = 5720816765) 0.0 See_Comment [Automated Regalos Y Amigos ssage] The system which generated this result transmitted reference range: 0.0 - 10.0 /100 WBCs. The reference range was not used to interpret this result as normal/abnormal. NRBC x10^3 (test code = 4326260626) See_Comment [Automated messa ge] The system which generated this result transmitted reference range: 10*3/?L. The reference range was not used to interpret this result as normal/abnormal. GRAN MAT (NEUT) % (test code = 770-8) 74.2 % IMM GRAN % (test code = 8404333600) 0.10 % LYMPH % (test code = 736-9) 15.6 % MONO % (test code = 5905-5) 7.6 % EOS % (test code = 713-8) 1.8 % BASO % (test code = 706-2) 0.7 % GRAN MAT x10^3(ANC) (test code = 5662308818) 5.39 10*3/uL 1.88-7.09 IMM GRAN x10^3 (test code = 5087849291) 0.00-0.06 LYMPH x10^3 (test code = 731-0) 1.13 10*3/uL 1.32-3.29 L MONO x10^3 (test code = 742-7) 0.55 10*3/uL 0.33-0.92 EOS x10^3 (test code = 711-2) 0.13 10*3/uL 0.03-0.39 BASO x10^3 (test code = 704-7) 0.05 10*3/uL 0.01-0.07 Lab Interpretation (test code = 54786-8) Abnormal [facility] HospitalTransthoracic echo (TTE)2022-02-21 22:50:22* Test Item Value Reference Range Interpretation Comme nts Height (test code = 8276098831) in Weight (test code = 6771531705) lbs Systolic BP (test code = 9298105538) mmHg Diastolic BP (test code = 3274849963) mmHg Heart Rate (test code = 6698439790) bpm BSA (test code = 1542261397) 1.37 m2 Ao root diam (test code = 7937841398) 3.50 cm Aortic root (test code = 5528822482) 3.5 cm Ao root annulus (test code = 5344292412) 3.5 cm LVOT diameter (test code = 6387455667) 1.86 cm LVOT area (test code = 5637018002) 2.70 cm2 LVIDD (test code = 3145353597) 4.00 cm Left Ventricular End Diastolic Volume by Teichholz Method (test code = 5604462) 71.7 mL IVS (test code = 2924160382) 0.98 cm Interventricular Septum Diastolic Thickness by 2D (test code = 0158946) 0.98 cm LVPWD (test code = 2384102334) 0.98 cm PW (test code = 1232828727) 0.98 cm 0.6-1.1 EF(Teich) (test code = 2724665482) 61.40 % LVIDS (test code = 7593513556) 2.70 cm Left Ventricular End Systolic Volume by Teichholz Method (test code = 9960918) 27.7 mL FS (test code = 9440176836) 33 % EF - 2D (test code = 45368698) 61.40 % LA size (test code = 1106131781) 2.06 cm TR Peak Frank (test code = 4202040307) 246.0 cm/s Triscuspid Valve Regurgitation Peak Gradient (test code = 5075518305) mmHg LAV(MOD-sp4) (test code = 7345588967) 32.80 mL E wave decelartion time (test code = 1532804759) 0.19 s MV stenosis pressure 1/2 time (test code = 5703074913) 58.0 ms MV Peak E Frank (test code = 8872146287) 70.6 cm/s MV Peak A Frank (test code = 2458278569) 53.6 cm/s E/A ratio (test code = 0311628646) ratio MR max PG (test code = 3619761569) 125.60 mm[Hg] MR max frank (test code = 2116222909) 560.00 cm/s Mr max frank (test code = 6015540129) 560.0 m/s MV Prop V (test code = 3083921895) 73.30 cm/s MV E/e' septal (test code = 2309968501) 9.9 cm/s Tapse (test code = 4598836007) 2.10 cm LVOT stroke volume (test code = 3105513685) 46.30 cm3 LVOT peak frank (test code = 0277418424) 91.7 cm/s LVOT mn grad (test code = 6411723896) mmHg AV LVOT peak gradient (test code = 3706364318) mmHg LVOT peak VTI (test code = 7272370651) 17.1 cm LV V1 mean (test code = 0965765049) 65.70 cm/s Aortic valve mean velocity (test code = 1045344198) 112.3 cm/s Ao peak frank (test code = 0828974050) 159.2 cm/s Ao VTI (test code = 4163722290) 27.3 cm AV area by cont VTI (test code = 5038203448) 1.7 cm2 AV area peak frank (test code = 5370870653) 1.6 cm2 Ao max PG (test code = 0842105372) 10.10 mm[Hg] AV peak gradient (test code = 2811896029) mmHg AV valve area (test code = 4469901015) 1.70 cm2 AV mean gradient (test code = 9483431911) mmHg AV regurgitation pressure 1/2 time (test code = 0698146775) 640.5 ms AI dec slope (test code = 1031885261) 201.20 cm/s2 AI max frank (test code = 5082867966) 439.90 cm/s AI max PG (test code = 3114249303) 77.40 mm[Hg] Radiology Study observation (narrative) (test code = 19788-1) MADAY (test code = MADAY) ?Left?Ventricle: Left [...] 2D, color flow Doppler and spectral Doppler. [facility] (A1C)2022-02-21 02:33:13* Test Item Value Reference Range Interpretation Comme nts HGB A1C (test code = 4548-4) 5.8 % 4.0-5.7 H MADAY (test code = MADAY) Reference RangesNormal: <5.7%Prediabetes: 5.7 - 6.4%Diabetes: > 6.5% Lab Interpretation (test code = 69990-3) Abnormal [facility] [id number] 19:32:09* Test Item Value Reference Range Interpretation Comments TROPONIN I (test code = 1878595439) 0.057 ng/mL See_Comment H [Automated message] The [...] of biotin. Lab Interpretation (test code = 09548-5) Abnormal [facility]. METABOLIC PANEL (27287)2022-02-20 19:20:46* Test Item Value Reference Range Interpretation Comme nts NA (test code = 9572516084) 138 mmol/L 135-145 K (test code = 6219085611) 4.8 mmol/L 3.5-5.0 CL (test code = 8556901820) 104 mmol/L 98-108 CO2 TOTAL (test code = 8374127218) 28 mmol/L 23-31 AGAP (test code = 6494454285) 2-16 BUN (test code = 3828789419) 23 mg/dL 7-23 GLUCOSE (test code = 5870935222) 65 mg/dL 70-110 L CREATININE (test code = 1462009165) 0.67 mg/dL 0.50-1.04 TOTAL BILI (test code = 9984528505) 0.5 mg/dL 0.1-1.1 CALCIUM (test code = 3545369885) 9.2 mg/dL 8.6-10.6 T PROTEIN (test code = 6539248513) 6.4 g/dL 6.3-8.2 ALBUMIN (test code = 0428428056) 4.1 g/dL 3.5-5.0 ALK PHOS (test code = 0723546203) 67 U/L 34-122 ALTv (test code = 1742-6) 33 U/L 5-35 AST(SGOT) (test code = 9773162193) 45 U/L 13-40 H eGFR (test code = 8421611379) mL/min/1.73m2 MADAY (test code = MADAY) Association [...] imaging tests). Lab Interpretation (test code = 86056-1) Abnormal [facility] SARS-COV-2 ANTIGEN (BINAX NOW)2022-02-20 19:18:00* Test Item Value Reference Range Interpretation Comme [facility] POCT SARS-COV-2 ANTIGEN (radha t code = 01851-0) Positive Not Detected A On board controls acceptable with C Line (test code = 3574) Yes Lab Interpretation (test cod e = 91200-6) Abnormal [facility] WITH [id number] 19:07:24* Test Item Value Reference Range Interpretation Comme [facility] WBC (test code = 6690-2) See_Comment [Automated [employer]] The system which generated this result transmitted [...] 33.4 g/dL 31.6-35.1 RDW-SD (test code = 29568-9) 45.7 fL 39.0-49.9 RDW-CV (test code = 788-0) 13.4 % 12.0-15.5 PLT (test code = 777-3) See_Comment [Automated messa ge] The system which generated this result transmitted reference range: 166 - 358 10*3/?L. The reference range was not used to interpret this result as normal/abnormal. MPV (test code = 21866-5) 10.8 fL 9.5-12.9 NRBC/100 WBC (test code = 9707164696) See_Comment [Automated Regalos [employer] Amigos ssage] The system which generated this result transmitted reference range: 0.0 - 10.0 /100 WBCs. The reference range was not used to interpret this result as normal/abnormal. NRBC x10^3 (test code = 2665599045) See_Comment [Automated messa ge] The system which generated this result transmitted reference range: 10*3/?L. The reference range was not used to interpret this result as normal/abnormal. GRAN MAT (NEUT) % (test code = 770-8) 61.2 % IMM GRAN % (test code = 2097235984) 0.20 % LYMPH % (test code = 736-9) 18.2 % MONO % (test code = 5905-5) 18.7 % EOS % (test code = 713-8) 1.2 % BASO % (test code = 706-2) 0.5 % GRAN MAT x10^3(ANC) (test code = 6085831352) 3.70 10*3/uL 1.88-7.09 IMM GRAN x10^3 (test code = 2201201094) 0.00-0.06 LYMPH x10^3 (test code = 731-0) 1.10 10*3/uL 1.32-3.29 L MONO x10^3 (test code = 742-7) 1.13 10*3/uL 0.33-0.92 H EOS x10^3 (test code = 711-2) 0.07 10*3/uL 0.03-0.39 BASO x10^3 (test code = 704-7) 0.03 10*3/uL 0.01-0.07 Lab Interpretation (test code = 47010-8) Abnormal [facility] MOLECULAR [id number] 17:51:19* Test Item Value Reference Range Interpretation Comme nts POCT Molecular Strep (test c ode = 72684-3) Negative Negative Lab Interpretation (test cod e = 84141-3) Normal [facility] MOLECULAR [id number] 17:51:19* Test Item Value Reference Range Interpretation Comme nts POCT Molecular Strep (test c ode = 69583-9) Negative Negative Lab Interpretation (test cod e = 29520-1) Normal [facility] MOLECULAR [id number] 17:39:16* Test Item Value Reference Range Interpretation Comme nts POCT Molecular FluA (test co de = 23459-0) Negative Negative POCT Molecular FluB (test co de = 38795-9) Negative Negative Lab Interpretation (test cod e = 09712-4) Normal [facility] MOLECULAR [id number] 17:39:16* Test Item Value Reference Range Interpretation Comme nts POCT Molecular FluA (test co de = 24334-4) Negative Negative POCT Molecular FluB (test co de = 19417-0) Negative Negative Lab Interpretation (test cod e = 80023-9) Normal [facility] Consult Notes Date/Time Note Provider Source 2024-01-08 12:28:33 Associated Order(s): CONSULT [employer] STATION ATTENDANT-ADULT CM provided patient with 3in1 BSC and set up home health with [facility]. Blaise Luna RN, BSN [facility] In School Suspension Coordinator [phone] [facility] Notes Date/Time Note Provider Source 2024-02-14 15:45:49 Routing to [facility] to schedule appointment. Meron Last 02/14/2024 3:[address] [facility] 2024-02-14 14:40:50 Please have her come in ORT-ORTHOPAEDIC SURGERY STAFF [facility] 2024-02-14 12:26:45 Gregoria with [facility] is calling to inform that the patient had a fall 02/07/2024 Pt was seen at [facility] on left hip. Patient is having pain and she is taking aleve 2X a day. Gregoria stated the patients pain is at a 7. She is wanting to know if its okay to continue to take Aleve. Gregoria with wanting to know if the patient needs to come and be seen. Please advise. Maritza Santana [facility] 2024-01-31 11:10:49 Gregoria with [facility] [phone] is with patient that has had hip replacement surgery and she has ran out of her hydrocodone pain medicine and is wanting to know if patient can take Tylenol 500mg until her medicine is refilled? Karin Gomez [facility] 2024-01-09 16:13:51 Spoke with patients daughter, Alex, Patient post day 1 after hip replacement, she stated that the medication HYDROcodone-acetaminophen 5-325 mg tablet was called into [facility]. When she went to pick it up she was told that they did not have the medication in stock. Daughter called [facility] [place] they too did not have any stock. Daughter also called [facility] in [place], also none in stock. She then called [facility] in [place] they had stock available. She is asking if we can send the RX to [facility]. Due to this being a controlled substance an MD would have to send it. Dr Rosario has already left for the day. Attempted to contact via Cell phone, message left. Alex was notified of the above information and informed that it could be tomorrow before new Rx is called in. She voiced understanding. Andria Vora RN [facility] 2024-01-09 11:57:09 Pt daughter is requesting RX to be sent to [facility] in [place]. DOS:01/08/2024 -Total Knee Replacement HYDROcodone-acetaminophen 5-325 mg tablet . Maritza Santana [facility] 2024-01-08 10:25:56 Summary: Family Surgical Update Patient's daughter, called on cell phone to provide surgery status update. No questions at this time. Tracey Gupta RN [facility] 2024-01-08 09:51:35 BRIEF OPERATIVE NOTE Date of [...] Implant Name Type Inv. Item Serial No. Telescope Repairer Lot No. LRB No. Used Action SCREW BONE TRLG 30MM SLF TAP 6.5MM ACTB CORTCL STERIL #[id number] - SN/A SCREW SCREW BONE TRLG 30MM SLF TAP 6.5MM ACTB CORTCL STERIL #[id number] N/A [employer] [id number] Left 1 Implanted SHELL ACTB G7 PPS 54MM LIMIT HOLE CLR CD F HMSPHR OFFSET HIP #[id number] - SN/A Joint Prosthesis SHELL ACTB G7 PPS 54MM LIMIT HOLE CLR CD F HMSPHR OFFSET HIP #[id number] N/A [employer] [id number] Left 1 Implanted SCREW BONE TRLG 20MM SLF TAP 6.5MM HIP ACTB STERIL #[id number] - SN/A SCREW SCREW BONE TRLG 20MM SLF TAP 6.5MM HIP ACTB STERIL #[id number] N/A [employer] [id number] Left 1 Implanted LINER ACTB 40MM F LNGVT G7 STERIL LF LUMEN HIP #[id number] - SN/A Joint Prosthesis LINER ACTB 40MM F LNGVT G7 STERIL LF LUMEN HIP #[id number] N/A [employer] [id number] Left 1 Implanted STEM FMRL 107.5MM 11MM 133D STD OFFSET TAP PRS FIT TI PPS #[id number] - SN/A Joint Prosthesis STEM FMRL 107.5MM 11MM 133D STD OFFSET TAP PRS FIT TI PPS #[id number] N/A [employer] [id number] Left 1 Implanted HEAD FMRL 40MM -3MM OFFSET HIP ACTB COCR G7 TYPE 1 #[id number] - SN/A HEAD FMRL 40MM -3MM OFFSET HIP ACTB COCR G7 TYPE 1 #[id number] N/A [employer] [id number] Left 1 Implanted Patient's Condition: good Findings: above Any other important information: none Please see dictated operative report for additional detail. [facility] 2024-01-05 14:21:09 Patients daughter has been contacted by the surgical center with the time of the arrival of the surgery. Janessa Luna [facility] 2024-01-05 12:12:11 Ghazala Orozco is a 83 year old female Calling to what time she needs to arrive by for surgery on 01/07. Leave VM if Pt doesn't answer Kriss Rider [facility] 2024-01-02 09:15:00 Images from the original note were not included. Venipuncture collection performed by clean technique on the left anticubitus. Total of 1 attempts were made. Slight pressure and a bandage/dressing were applied to the site(s). The patient experienced no complications. The following specimens were processed according to instructions and sent to [facility] laboratories per lab order on 12/18/26: LT BLUE SST 1 RED LAV 2 PPT DK GREEN (LiHep) DK GREEN (SodH) JOHNSON DK BLUE (K2) DK BLUE (S) ACD Blood Culture NIPT/NTD T [facility] 2024-01-02 09:15:00 Images from the original note were not included. Patient has been identified by and name and was provided with cup, antiseptic towelette, and clean catch instructions. 1 urine specimen(s) sent. Unpreserved 1 Urine Culture Aptima tube Other urine Ofe Sahu [facility] 2024-01-01 14:01:28 Images from the original note were not included. Your procedure is at [facility] on 01/08/24. The [place] is [address] [place] [address], [id number]. [facility] nursing staff will call you the workday [...] voiced no further questions at this time. 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 ORT-ORTHOPAEDIC SURGERY STAFF [facility] 2023-09-12 12:29:57 Images from the original note were not included. Your procedure is at [facility] on 09/18/23. The address is [address] [place] [address], [id number]. [facility] nursing staff will call you the workday [...] voiced no further questions at this time. Shelby Roberts RN [facility] 2023-09-12 12:15:00 Images from the original note were not included. Venipuncture collection performed by clean technique on the left anticubitus. Total of 2 attempts were made. Slight pressure and a bandage/dressing were applied to the site(s). The patient experienced no complications. The following specimens were processed according to instructions and sent to [facility] laboratories per lab order on today: LT BLUE SST RED LAV 2 PPT DK GREEN (LiHep) DK GREEN (SodH) JOHNSON DK BLUE (K2) DK BLUE (S) ACD Blood Culture NIPT/NTD Patient has been identified by and name and was provided with cup, antiseptic towelette, and clean catch instructions. 2 urine specimen(s) sent. Unpreserved 2 Urine Culture Aptima tube Other urine T [facility] 2023-05-31 09:45:00 Images from the original note were not included. Venipuncture collection performed by clean technique on the right anticubitus. Total of 1 attempts were made. Slight pressure and a bandage/dressing were applied to the site(s). The patient experienced no complications. The following specimens were processed according to instructions and sent to [facility] laboratories per lab order on 05/31/2023: LT BLUE SST 1 RED LAV 1 PPT DK GREEN (LiHep) DK GREEN (SodH) JOHNSON DK BLUE (K2) DK BLUE (S) ACD Blood Culture NIPT/NTD CUTTER [facility] 2023-05-30 10:04:43 Called patient but no answer so LVM to call back or send a [email or web address] message. Meron Last 05/30/2023 10:05 AM CUTTER Meron Last [facility] 2023-05-29 10:34:39 Patient want to discuss pre op has questions about test that she needs. ISH Do [facility] 2023-05-29 09:50:02 Pre op orders.Meron Last 05/29/2023 9:53 AM [facility] 2023-05-23 11:46:59 Form signed, faxed and confirmation received. ISH Tobin MA [facility] 2023-05-23 11:14:21 Last clinical notes faxed and confirmation received. ISH Tobin MA [facility] 2023-05-23 10:56:04 Ghazala Orozco is a 83 year old female and Marco with [facility] is calling needing the last 4 clinical notes for the pts HIPAA compliant form that was sent over previously. ISH Camara [facility] 2023-05-22 16:21:51 Referral has been placed to orthopedic surgery. [facility] 2023-05-22 16:11:53 Pt has an appt to see Dr. Rosario on 05/25. Pt is needing referral and auth because of the insurance ISH Lama [facility] 2023-05-22 13:33:02 Form placed in provider folder for review. CUTTER Tracey Tobin MA [facility] 2023-05-22 12:24:26 Images from the original note were not included. CUTTER Shira Vaz [facility] 2022-12-27 09:59:28 Formatting of this n ote might be different from the original. Spoke with patient and informed of lab results. Patient is wanting to [facility] prescription [facility] since [facility] in [place] no longer take her insurance. Patient had no further question. Medication will be sent to pharmacy. [facility] 2022-12-26 16:54:32 Formatting of this n ote might be different from the original. Attempted to reach pt at [phone], no answer and no voicemail available. Amaya Salas RN [facility] 2022-12-23 16:23:11 Formatting of this n ote might be different from the original. Pt calling wanting a nurse to call her back regarding her lab results. Kriss Rider [facility] 2022-12-23 14:06:34 Formatting of this n ote might be different from the original. Patient called asking to speak to nurse regarding her test result. Please advise Alex Potts [facility] 2022-12-21 11:15:00 Formatting of this n ote is different from the original. Images from the original note were not included. Venipuncture collection performed by clean technique on the left anticubitus. Total of 1 attempts were made. Slight pressure and a bandage/dressing were applied to the site(s). The patient experienced no complications. The following specimens were processed according to instructions and sent to [facility] laboratories per lab order on 12/21/2022 : LT BLUE SST 3 RED LAV 2 PPT DK GREEN (LiHep) DK GREEN (SodH) JOHNSON DK BLUE (K2) DK BLUE (S) ACD Blood Culture NIPT/NTD [facility]"
[2024-02-15] MEDS ORDERED: ACETAMINOPHEN 325 MG TABLET ONE (18:17)
[2024-02-15] MEDS ORDERED: CYCLOBENZAPRINE 10 MG TAB ONE (18:18)
[2024-02-15] MEDS ORDERED: predniSONE 20 MG TAB ONE (20:18)
[2024-02-15] MEDS ORDERED: GABAPENTIN 300 MG CAP ONE (20:19)
--- NOTE | 2024-02-15 20:53 | RAD REPORT ---
Exam:Hip Left 2 View HISTORY: Left hip pain FINDINGS: No fracture or dislocation seen No evidence of loosening of the left hip prosthesis.
--- NOTE | 2024-02-15 20:59 | EDPHYS ---
Physician Documentation [facility] Name: Ghazala Orozco Age: 83 yrs Sex: Female : 1940 Arrival Date: 02/15/2024 Time: 17:57 Bed 20 Private MD: ED Physician Martinez Taylor HPI: 02/14 18:10 This 83 yrs old Female presents to ER via EMS with complaints of Hip Pain. sb4 18:10 Patient reports left hip pain after awaking from a nap this afternoon. States that she sb4 was walking around on it at her daughter's doctor's appointment earlier today. States that she gets pain in the hip intermittently, as she had it replaced about 1.5 months ago She has not taken any medications for the pain. She denies any numbness or tingling. She states that she was unable to get out of the bed because of the pain. Historical: - Allergies: 18:03 Codeine; kc6 18:03 tramadol; kc6 18:07 NSAIDS; kc6 - Home Meds: 18:03 None [Active]; kc6 - PMHx: 18:03 None; kc6 - PSHx: 18:03 Left hip replacement; hysterectomy (Left hip replacement ); kc6 - Immunization history:: Adult Immunizations up to date. - Infectious Disease History:: Denies. - Social history:: Smoking status: Patient denies any tobacco usage or history of. ROS: 18:10 Constitutional: Negative for fever, chills, and weight loss, sb4 18:10 MS/extremity: Positive for pain, of the left hip, 18:10 All other systems are negative, Exam: 18:10 Constitutional: This is a well developed, well nourished patient who is awake, alert, sb4 and in no acute distress. Head/Face: Normocephalic, atraumatic. Eyes: Extra-ocular motions intact. Periorbital areas with no swelling, redness, or edema. ENT: Mucous membranes moist. Skin: Warm, dry with normal turgor. Normal color with no rashes, no lesions, and no evidence of cellulitis. 18:10 Musculoskeletal/extremity: ROM: limited active range of motion due to pain, limited passive range of motion due to pain, in the left leg, Vital Signs: 18:02 BP 126 / 77; Pulse 73; Resp 18 S; Temp 98.4(O); Pulse Ox 100% on R/A; Weight 45.36 kg kc6 (R); Height 4 ft. 11 in. (R); Pain 9/10; 19:00 Pain 3/10; br2 19:00 BP 129 / 77; Pulse 75; Resp 18; Temp 97.3(TE); Pulse Ox 96% on R/A; Pain 3/10; br2 20:05 BP 126 / 84; Pulse 74; Resp 20 S; Pulse Ox 76% on R/A; Pain 4/10; br2 21:05 BP 128 / 80; Pulse 79; Resp 18 S; Temp 97.2; Pulse Ox 96% on R/A; Pain 5/10; br2 18:02 Body Mass Index 20.20 (45.36 kg, 149.86 cm) kc6 18:02 Pain Scale: Adult kc6 19:00 Pain Scale: Adult br2 19:00 Pain Scale: Adult br2 20:05 Pain Scale: Adult br2 21:05 Pain Scale: Adult br2 MDM: 17:59 Medical Screening Exam initiated sb4 19:39 Data reviewed: vital signs, nurses notes, EMS record, and as a result, I will discharge sb4 patient. Counseling: I had a detailed discussion with the patient and/or guardian regarding the historical points, exam findings, and any diagnostic results supporting the discharge/admit diagnosis, to return to the emergency department if symptoms worsen or persist or if there are any questions or concerns that arise at home. 02/14 20:13 Order name: Hip Left 2 View XRAY; Complete Time: 20:54 sb4 02/14 18:53 Order name: [facility]. Order: ambulate sb4 Administered Medications: 18:21 Drug: Acetaminophen PO 650 mg PO once Route: PO; kc6 19:00 Follow up: Response: No adverse reaction; Pain is decreased br2 18:21 Drug: Cyclobenzaprine PO 5 mg PO once Route: PO; kc6 19:00 Follow up: Pain 3 Adult; Response: No adverse reaction; Pain is decreased br2 20:22 Drug: predniSONE PO 40 mg PO once Route: PO; br2 20:55 Follow up: Response: No adverse reaction; Pain is decreased br2 20:22 Drug: Gabapentin PO 300 mg PO once Route: PO; br2 20:55 Follow up: Response: No adverse reaction; Pain is decreased br2 Disposition Summary: 02/15/24 20:58 Discharge Ordered Notes: Location: Home sb4 Problem: an acute exacerbation sb4 Symptoms: have improved sb4 Condition: Stable sb4 Diagnosis - Pain in left hip sb4 Followup: sb4 - With: Toribio Gregg MD - When: 1 week - Reason: Recheck today's complaints, Re-evaluation by your physician Discharge Instructions: - Discharge Summary Sheet sb4 - Joint Pain sb4 - Hip Pain sb4 Forms: - Prescription Opioid Use sb4 - Patient Portal Instructions sb4 - Leadership Thank You Letter sb4 Prescriptions: - gabapentin 100 mg Oral capsule - take 1 capsule ORAL route every 8 hours; 12 capsule; Refills: 0, Product sb4 Selection Permitted Addendum: 02/17/2024 17:50 I was immediately available for consultation during this patient's visit. I did not e c2 personally see the patient or discuss the patient with the CHARLI. . Signatures: Dispatcher [employer] Chandni Roque RN RN kc6 Shantelle Choe PA-C PA-C sb4 Martinez Taylor MD MD ec2 Leena Dallas RN RN br2 Corrections: (The following items were deleted from the chart) 02/14 20:39 18:10 Patient reports left hip pain after awaking from a nap this afternoon. States sb4 that she was walking around on it at her daughter's doctor's appointment earlier today. States that she gets pain in the hip intermittently, as she had it replaced several years back. She has not taken any medications for the pain. She denies any numbness or tingling. She states that she was unable to get out of the bed because of the pain. sb4
--- NOTE | 2024-02-15 20:59 | ER ---
Nurse's Notes [facility] Name: Ghazala Orozco Age: 83 yrs Sex: Female : 1940 Arrival Date: 02/15/2024 Time: 17:57 Bed 20 Private MD: Diagnosis: Pain in left hip Presentation: 02/14 18:02 Chief complaint: EMS states: pt was here within the last week for a fall injury. pt kc6 reports continued left hip pain 9/10 after waking up from a nap, to the point where she couldn't move in the bed. Coronavirus screen: At this time, the client does not indicate any symptoms associated with coronavirus-19. Ebola Screen: No symptoms or risks identified at this time. Initial Sepsis Screen: Does the patient meet any 2 criteria? No. Patient's initial sepsis screen is negative. Does the patient have a suspected source of infection? No. Patient's initial sepsis screen is negative. Risk Assessment: Do you want to hurt yourself or someone else? Patient reports no desire to harm self or others. Onset of symptoms was February 15, 2024. 18:02 Method Of Arrival: EMS: [facility] kc6 18:02 Acuity: SANDY 4 kc6 Triage Assessment: 18:03 General: Appears in no apparent distress. comfortable, slender, well groomed, well kc6 developed, Behavior is calm, cooperative, appropriate for age. Pain: Complains of pain in left hip Pain does not radiate. Pain currently is 9 out of 10 on a pain scale. EENT: No signs and/or symptoms were reported regarding the EENT system. Neuro: Level of Consciousness is awake, alert, obeys commands, Oriented to person, place, time, situation, Appropriate for age. Cardiovascular: Capillary refill < 3 seconds. Respiratory: Airway is patent Trachea midline Respiratory effort is even, unlabored, Respiratory pattern is regular, symmetrical. GI: No signs and/or symptoms were reported involving the gastrointestinal system. : No signs and/or symptoms were reported regarding the genitourinary system. Derm: No signs and/or symptoms reported regarding the dermatologic system. Skin is intact, is healthy with good turgor, Skin is pink, warm \T\ dry. Musculoskeletal: Capillary refill < 3 seconds, Range of motion: limited in left hip. Historical: - Allergies: 18:03 Codeine; kc6 18:03 tramadol; kc6 18:07 NSAIDS; kc6 - Home Meds: 18:03 None [Active]; kc6 - PMHx: 18:03 None; kc6 - PSHx: 18:03 Left hip replacement; hysterectomy (Left hip replacement ); kc6 - Immunization history:: Adult Immunizations up to date. - Infectious Disease History:: Denies. - Social history:: Smoking status: Patient denies any tobacco usage or history of. Screenin:05 [facility] ED Fall Risk Assessment (Adult) History of falling in the last 3 months, kc6 including since admission Yes- single mechanical fall (1 pt) Confusion or Disorientation No (0 pts) Intoxicated or Sedated No (0 pts) Impaired Gait Yes (1 pt) Mobility Assist Device Used Yes (1 pt) Altered Elimination No (0 pt) Score/Fall Risk Level 3 or more points = High Risk Oriented to surroundings, Maintained a safe environment, Educated pt \T\ family on fall prevention, incl call for assistance when getting out of bed. Abuse screen: Denies threats or abuse. Denies injuries from another. Nutritional screening: No deficits noted. Tuberculosis screening: No symptoms or risk factors identified. Assessment: 18:05 Reassessment: please see triage. kc6 19:00 Reassessment: Patient and/or family updated on plan of care and expected duration. Pain br2 level reassessed. Patient is alert, oriented x 3, equal unlabored respirations, skin warm/dry/pink. Patient states feeling better. Musculoskeletal: Range of motion: limited in left hip Reports pain in hip left. 19:00 Reassessment: s/p left hip surgery 01/08/24, then fell on February 07, 2024 and was seen br2 in er. Pt states she has a f/u appt with ortho on Monday02/19/24. 20:12 Reassessment: pt out of bed to bedside commode. pt c/o pain at 11/24, provider notifed. br2 21:00 Reassessment: Patient and/or family updated on plan of care and expected duration. Pain br2 level reassessed. Patient is alert, oriented x 3, equal unlabored respirations, skin warm/dry/pink. Patient states feeling better. Vital Signs: 18:02 BP 126 / 77; Pulse 73; Resp 18 S; Temp 98.4(O); Pulse Ox 100% on R/A; Weight 45.36 kg kc6 (R); Height 4 ft. 11 in. (R); Pain 9/10; 19:00 Pain 3/10; br2 19:00 BP 129 / 77; Pulse 75; Resp 18; Temp 97.3(TE); Pulse Ox 96% on R/A; Pain 3/10; br2 20:05 BP 126 / 84; Pulse 74; Resp 20 S; Pulse Ox 76% on R/A; Pain 4/10; br2 21:05 BP 128 / 80; Pulse 79; Resp 18 S; Temp 97.2; Pulse Ox 96% on R/A; Pain 5/10; br2 18:02 Body Mass Index 20.20 (45.36 kg, 149.86 cm) kc6 18:02 Pain Scale: Adult kc6 19:00 Pain Scale: Adult br2 19:00 Pain Scale: Adult br2 20:05 Pain Scale: Adult br2 21:05 Pain Scale: Adult br2 ED Course: 17:59 Patient arrived in ED. sb4 17:59 Shantelle Choe PA-C [facility]. sb4 17:59 Martinez Taylor MD is Attending Physician. sb4 18:01 Chandni James, AIMEE is Primary Nurse. kc6 18:03 Triage completed. kc6 18:05 Arm band placed on. kc6 18:05 Patient has correct armband on for positive identification. Bed in low position. Call kc6 light in reach. Side rails up X2. Pulse ox on. NIBP on. Door closed. Noise minimized. Lights dimmed. Pillow given. 18:05 Patient maintains SpO2 saturation greater than 95% on room air. kc6 20:29 Hip Left 2 View XRAY In Process Unspecified. EDMS 20:58 Toribio Gregg MD is Referral Physician. sb4 21:10 Provided Education on: discharge instructions. br2 21:10 No provider procedures requiring assistance completed. Patient did not have IV access br2 during this emergency room visit. Administered Medications: 18:21 Drug: Acetaminophen PO 650 mg PO once Route: PO; kc6 19:00 Follow up: Response: No adverse reaction; Pain is decreased br2 18:21 Drug: Cyclobenzaprine PO 5 mg PO once Route: PO; kc6 19:00 Follow up: Pain 06/24 Adult; Response: No adverse reaction; Pain is decreased br2 20:22 Drug: predniSONE PO 40 mg PO once Route: PO; br2 20:55 Follow up: Response: No adverse reaction; Pain is decreased br2 20:22 Drug: Gabapentin PO 300 mg PO once Route: PO; br2 20:55 Follow up: Response: No adverse reaction; Pain is decreased br2 Medication: 21:10 VIS not applicable for this client. br2 Outcome: 20:58 Discharge ordered by . sb4 21:10 Discharged to home via wheelchair, br2 21:10 Condition: good 21:10 Discharge instructions given to patient, family, Instructed on discharge instructions, follow up and referral plans. medication usage, Demonstrated understanding of instructions, follow-up care, medications, Prescriptions given X 1, 21:21 Patient left the ED. br2 Signatures: Dispatcher [employer] EDChandni Ga RN RN kc6 Shantelle Choe PA-C PATanya sb4 Leena Dallas RN RN br2
[2024-02-15 21:30] VITALS: BP 128/80; TEMP 97.2; O2SAT 96
== END 2024-02-15 21:21 | disposition home or self-care (01) ==
LOC: ER 17:57
DX: M25.552 Pain in left hip (principal); Z96.642 Presence of left artificial hip joint
CPT/HCPCS: 73502; 99284; J7512

== ENCOUNTER 2024-05-29 11:40 | Emergency (ER) | payer OTHER ==
--- OUTSIDE RECORDS SUMMARY | 2024-05-29 11:51 | XMS REPORT | Continuity of Care Document ---
Author Name Unknown Address [address] [facility] [address] [place] [address] [facility] thconnect Address [address] [facility] [address] [place] [address] Care Team Providers Care Marketing Operations Intern Name Role Phone Loyda Mcdonough MD Primary Care Physician [phone] JERRY IBARRA Attending Clinician LOYDA Bloom Attending Clinician Unavailable LOYDA MCDONOUGH Attending Clinician Unavailable Caitlyn Rosario MD Attending Clinician [phone] CAITLYN ROSARIO Attending Clinician UnavailCAITLYN Dunne Attending Clinician Loyda Bloom MD Attending Clinician [phone] Maritza Ralph MA Attending Clinician Un available Jerry Ibarra MD Attending Clinician [phone] Erasto Trent RN Attending Clinician Unavail able Doctor Unassigned, [place] Attending Clinician U Brianna Navarrete PA-C Attending Clinician [phone] 2, [facility] Attending Clinician Unavailable Kumar Choe PTA Attending Clinician UnavailCaitlyn Larose MD Attending Clinician [phone] Betty Grande MD Attending Clinician [phone] BETTY GRANDE Attending Clinician Unavailable Doctor Unassigned, [place] Attending Clinician U navailraúl Pob, [facility] Main Attending Clinician Unavailabl e Lab, Ang - Db Attending Clinician Unavailable Marko SCHOFIELD, Devaughn Attending Clinician + [phone] Diana JESUS, Doron Attending Clinician [phone] Jero JOHNS, Meseret Attending Clinician [phone] Unknown, Attending Attending Clinician Unavailab MESERET Bay Attending Clinician Unavailable DEVAUGHN VEGA Attending Clinician Unavailab jaqueline Nurse, Zuhair Salcedo Attending Clinician Unavailable DORON ORTIZ Attending Clinician Unavailab le 2, [facility] Attending Clinician Unavailable Stacey SCHOFIELD, Jerry Jackson Attending Clinician [phone] Celeste SCHOFIELD, Aysha Attending Clinician + [phone] TRACEY CEDEON Attending Clinician Unavailable Wilian SCHOFIELD, Tracey Attending Clinician [phone] UNKNOWN, ATTENDING Attending Clinician Unavailab CASSIA Ram Attending Clinician Unavailable Tennille Hobbs Attending Clinician [phone] KATIE CORTEZ Attending Clinician Unavailable Katie Victor Attending Clinician [phone] MARITZA BEAR Attending Clinician Unava ilable TENNILLE GARCIA Attending Clinician Unavailable King REENA MD, Mason Jorge Attending Clinician + [phone] Flaquito YU, Vlad Lou Attending Clinician Unavail able VENECIA CALLOWAY Attending Clinician Unavailable Rene Kay MD Attending Clinician +- [phone] Venecia Calloway DO Attending Clinician [phone] MARIA DOLORES GAXIOLA Attending Clinician Unavailab Amelia Moore PA-C Attending Clinician [phone] Maria Dolores Lombardi Attending Clinician + [phone] Kevin Hamilton Attending Clinician [phone] Nurse, [facility] Attending Clinician Un available MINESH STANFORD Attending Clinician Unavail able Cassia Parker MD Attending Clinician [phone] Maritza Bear MD Attending Clinician [phone] Nurse, Ad[facility] Pob Immunization Attending Clinician Unavailable Minesh Stanford DO Attending Clinician [phone] LIAM ROSS Attending Clinician Unavailable LILLI HANSON Attending Clinician Unavailable Rajsubhash_P Attending Clinician Unavailable JERRY IBARRA Admitting Clinician UnavailCAITLNY Dunne Admitting Clinician UnavailCaitlyn Dunne MD Admitting Clinician [phone] Caitlyn Rosario MD Admitting Clinician [phone] CASSIA PARKER Admitting Clinician Unavailable VENECIA CALLOWAY Admitting Clinician Unavailable Venecia Calloway DO Admitting Clinician [phone] Che_Daisy Admitting Clinician Unavailable Payers Payer Name Policy Type Policy Number Effective Date Expirati on Date Source MEDICARE PART A \\T\\ B [id number] 2004 00:00:00 FOR LIFE [id number] 2022 00:00:00 FOR LIFE [id number] 2020 00:00:00 FOR LIFE [id number] 2004 00:00:00 [place] [employer] Moe Delo [id number] 2004 00:00:00 [facility] [id number] 2008 00:00:00 Problems Condition Name Condition Details Condition Category Status Onset Date Resolution Date Last Treatment Date Treating Clinician Comments Source Preoperati ve cardiovasc ular examinatio n Preoperati ve cardiovasc ular examinatio n Disease Active 10-23 00:00: 00 [facility] Prediabete s Prediabete s Disease Active 10-23 00:00: 00 [facility] Pre-op testing Pre-op testing Disease Active 09-11 00:00: 00 [facility] Primary osteoarthr itis of left hip Primary osteoarthr itis of left hip Disease Active 09-11 00:00: 00 [facility] Allergic rhinitis Allergic rhinitis Disease Active 07-15 00:00: 00 [facility] 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 Disease Active 07-15 00:00: 00 [facility] Hearing loss Hearing loss Disease Active 07-15 00:00: 00 [facility] Hemangioma Hemangioma Disease Active 07-15 00:00: 00 [facility] Impacted cerumen Impacted cerumen Disease Active 07-15 00:00: 00 [facility] Tinnitus Tinnitus Disease Active 07-15 00:00: 00 [facility] Pneumonia due to COVID-19 virus Pneumonia due to COVID-19 virus Disease Active 2021-04 00:00: 00 [facility] Troponin I above reference range Troponin I above reference range Disease Active 2021-04 00:00: 00 [facility] Other chest pain Other chest pain Disease Active 2021-04 00:00: 00 [facility] Coronaviru s infection Coronaviru s infection Disease Active 2021-04 00:00: 00 [facility] Primary osteoarthr itis of left knee Primary osteoarthr itis of left knee Disease Active 10-27 00:00: 00 [facility] GERD (gastroeso phageal reflux disease) GERD (gastroeso phageal reflux disease) Disease Active 07-02 00:00: 00 [facility] Vitamin D deficiency Vitamin D deficiency Disease Active 07-02 00:00: 00 Overview: Formattin g of this note might be different from the original. 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 [facility] Osteoporos is Osteoporos is Disease Active 07-02 00:00: 00 [facility] Mixed hyperlipid emia Mixed hyperlipid emia Disease Active 07-02 00:00: 00 [facility] Actinic keratosis Actinic keratosis Disease Active 07-02 00:00: 00 [facility] Allergies, Adverse Reactions, Alerts Allergy Name Allergy Type Status Severity Reaction(s) Onset Date Inactive Date Treating Clinician Comments Source NSAIDS (NON-EHSAN ROIDAL ANTI-INF LAMMATOR Y DRUG) Drug Class Active Med Palpitations 16 00:00: 00 [facility] Nsaids (Non-Ehsan roidal Anti-Inf lammator y Drug) Propensi ty to adverse reaction s to drug Active Palpitations 16 00:00: 00 [facility] Nsaids (Non-Ehsan roidal Anti-Inf lammator y Drug) Propensi ty to adverse reaction s to drug Active Palpitations 12-31 00:00: 00 [facility] LATEX DRUG INGREDI Active ITCHING 06-02 00:00: 00 [facility] Latex Propensi ty to adverse reaction s Active Itching 06-02 00:00: 00 [facility] TRAMADOL DRUG INGREDI Active Dizziness 04-20 00:00: 00 [facility] Tramadol Propensi ty to adverse reaction s Active Nausea and/or Vomiting 04-20 00:00: 00 [facility] CODEINE DRUG INGREDI Active Dizziness 11-08 00:00: 00 [facility] Codeine Propensi ty to adverse reaction s Active Dizziness 11-08 00:00: 00 [facility] Social History Social Habit Start Date Stop Date Quantity Comments Source Gender identity [facility] Alcoholic beverage intake 2024-05-23 00:00:00 2024-05-23 00:00:00 Current non-drinker of alcohol (finding) [facility] History of Social function 2024-05-13 00:00:00 2024-05-13 00:00:00 [facility] Tobacco use and exposure 2023-09-08 00:00:00 2023-09-08 00:00:00 Smokeless tobacco non-user [facility] Alcohol intake 2023-05-25 00:00:00 2023-05-25 00:00:00 Current non-drinker of alcohol (finding) [facility] Exposure to SARS-CoV-2 (event) 2022-08-28 00:00:00 2022-09-07 11:49:00 Not sure [facility] History SDOH Food Worry 2022-02-23 00:00:00 2022-02-23 00:00:00 1 [facility] History SDOH Food Scarcity 2022-02-23 00:00:00 2022-02-23 00:00:00 1 [facility] History SDOH Transport Med 2022-02-23 00:00:00 2022-02-23 00:00:00 2 [facility] History SDOH Transport Non-Med 2022-02-23 00:00:00 2022-02-23 00:00:00 2 [facility] Tobacco Comment 2022-02-20 00:00:00 2022-02-20 00:00:00 Quit in her 60's [facility] History of tobacco use 1974-04-17 00:00:00 Cigarette Smoker [facility] Sex assigned at 1940 00:00:00 1940 00:00:00 [facility] Smoking Status Start Date Stop Date Source Ex-smoker 2023-09-08 00:00:00 2023-09-08 [facility]00[facility] Medications Ordered Medication Name Filled Medication Name Start Date Stop Date Current Medication? Ordering Clinician Indication Dosage Frequency Signature (SIG) Comments Components Source hydrocortis one 2.5 % cream 2023-04 00:00: 00 Yes [id number] Apply to affected area(s) 2 (two) times daily. For up to 7 days [facility] HYDROcodone -acetaminop hen 5-325 mg tablet 01-09 00:00: 00 01-17 04:59 :00 No [id number] 1{tbl} Take 1 tablet by mouth every 6 (six) hours as needed for Pain (scale 4-6) for up to 7 days. Indication s: acute pain [facility] FENTanyl (PF) (SUBLIMAZE) injection 25 mcg 01-07 16:29: 54 01-07 21:50 :05 No 25ug 25 mcg, Slow IV Push, Q5MIN PRN, 4 doses, Starting on Mon01/08/24 at 1129, Until Mon01/08/24 at 1650, Routine, Pain Scale 4-6, PACU [facility] ondansetron (ZOFRAN (PF)) injection 4 mg 01-07 16:29: 54 01-07 21:50 :05 No 4mg 4 mg, Slow IV Push, PRN, 1 dose, Starting on Mon01/08/24 at 1129, Until Mon01/08/24 at 1650, Routine, Nausea and Vomiting (N/V), PACU [facility] BUPivacaine liposome (PF) (EXPAREL (PF)) 1.3 % (13.3 mg/mL) 266 mg, bupivacaine -epinephrin e-pf (SENSORCAIN E W/EPINEPHRI NE) 0.25 %-1:200,000 30 mL, NaCl 0.9% (NS) 70 mL 01-07 14:56: 00 01-07 16:14 :56 No PRN, Starting on Mon01/08/24 at 0956, Intra-op [facility] sodium chloride 0.9 % irrigation solution 01-07 14:51: 00 01-07 16:14 :56 No PRN, Starting on Mon01/08/24 at 0951, Until Mon01/08/24 at 1114, Intra-op [facility] celecoxib (CELEBREX) capsule 400 mg 01-07 12:45: 00 01-07 12:54 :00 No 400mg 400 mg, Oral, ONCE, 1 dose, On Mon01/08/24 at 0745, Routine, DSU Pre-op [facility] gabapentin (NEURONTIN) capsule 300 mg 01-07 12:45: 00 01-07 12:55 :00 No 300mg 300 mg, Oral, ONCE, 1 dose, On Mon01/08/24 at 0745, Routine, DSU Pre-op [facility] lactated ringers IV infusion 1,000 mL 01-07 12:45: 00 01-07 12:55 :00 No 1000mL at 42 mL/hr, 1,000 mL, IV Infusion, ONCE, 1 dose, On Mon01/08/24 at 0745, Routine, DSU Pre-op [facility] tranexamic acid (CYKLOKAPRO N) 1,000 mg in NaCl 0.9% (NS) 250 mL piggyback 01-07 05:00: 00 01-07 16:59 :00 No 1000mg [facility] aspirin 325 mg tablet 01-07 00:00: 00 02-05 04:59 :00 No [id number] 325mg Take 1 tablet by mouth in the morning and 1 tablet in the evening. Take with meals. Do all this for 28 days. [facility] HYDROcodone -acetaminop hen 5-325 mg tablet 01-07 00:00: 00 01-08 00:00 :00 No [id number] 1{tbl} Take 1 tablet by mouth every 6 (six) hours as needed for Pain (scale 4-6) or Pain (scale 7-10) for up to 7 days. Indication s: acute pain [facility] dexamethaso ne (DECADRON PHOSPHATE) injection 09-17 14:41: 00 09-17 15:07 :37 No PRN, Starting on Mon09/18/23 at 0941, Until Mon09/18/23 at 1007, Routine, Intra-op [facility] bupivacaine (preserv free) 0.5% (SENSORCAIN E MPF) injection 09-17 14:41: 00 09-17 15:07 :37 No PRN, Starting on Mon09/18/23 at 0941, Until Mon09/18/23 at 1007, Routine, Intra-op [facility] lactated ringers IV infusion 1,000 mL 09-17 14:00: 00 09-17 14:23 :00 No 1000mL at 42 mL/hr, 1,000 mL, IV Infusion, ONCE, 1 dose, On Mon09/18/23 at 0900, Routine, DSU Pre-op [facility] multivitami n tablet 09-17 11:24: 13 Yes 1{tbl} Take 1 tablet by mouth in the morning. Complete women's 50+, [employer] brand. [facility] turmeric root extract 500 mg Cap 09-17 11:24: 13 01-07 00:00 :00 No 500mg Take 500 mg by mouth 2 (two) times daily. [facility] aspirin 81 mg Cap 05-25 08:23: 51 Yes 3{capsu le} Take 3 capsules by mouth at bedtime. [facility] Cholecalcif melissa, Vitamin D3, (VITAMIN D3) 1,000 unit Cap 05-25 08:23: 51 09-07 00:00 :00 No 2000U Take 2 capsules by mouth in the morning. [facility] atorvastati n 20 mg tablet 12-27 00:00: 00 09-07 00:00 :00 No [id number] 20mg Take 1 tablet by mouth at bedtime. [facility] atorvastati n 20 mg tablet 12-21 00:00: 00 Yes [id number] 20mg Take 1 tablet by mouth at bedtime. [facility] Diclofenac Sodium (VOLTAREN) 1 % gel 10-21 00:00: 00 01-07 00:00 :00 No [id number] Take 2-4 grams three times a day as needed for pain [facility] meclizine 25 mg tablet 10-21 00:00: 00 09-07 00:00 :00 No [id number] 25mg Take 1 tablet by mouth 3 (three) times daily as needed for Dizziness or Nausea. [facility] NaCl 0.9% (NS) bolus infusion 1,000 mL 10-16 17:30: 00 10-16 17:57 :00 No 1000mL at 999 mL/hr, 1,000 mL, IV Infusion, ONCE, 1 dose, On 10/16/22 at 1230, VICTORIA [facility] meclizine (TRAVEL-EAS E (MECLIZINE) ) tablet 25 mg 10-16 16:45: 00 10-16 16:53 :00 No 25mg 25 mg, Oral, ONCE, 1 dose, On 10/16/22 at 1145, VICTORIA [facility] aspirin 81 mg Cap 10-16 15:40: 18 09-07 00:00 :00 No 3{capsu le} Take 3 capsules by mouth at bedtime. [facility] turmeric root extract 500 mg Cap 07-20 09:39: 06 Yes 500mg Take 500 mg by mouth 2 (two) times daily. [facility] loratadine 10 mg tablet 07-20 09:39: 06 Yes 10mg Take 1 tablet by mouth in the morning. [facility] turmeric root extract 500 mg Cap 07-20 09:39: 06 Yes 500mg Take 500 mg by mouth 2 (two) times daily. [facility] cyclobenzap rine 10 mg tablet 04-20 00:00: 00 09-07 00:00 :00 No [id number] 10mg Take 1 tablet by mouth at bedtime. [facility] predniSONE 20 mg tablet 2021-04 00:00: 00 04-20 00:00 :00 No [id number] 20mg Take 1 tablet by mouth in the morning. [facility] bromphenira mine-pseudo ephedrine-D M (BROMFED DM) 2-30-10 mg/5 mL syrup 2021-04 00:00: 00 04-20 00:00 :00 No [id number] 5mL Take 5 mL by mouth 3 (three) times daily as needed for Congestion /Allergies or Cough. [facility] zinc sulfate 50 mg zinc (220 mg) capsule 2021-04 00:00: 00 03-03 05:59 :00 No [id number] 50mg Take 1 capsule by mouth in the morning for 7 days. [facility] multivitami n tablet 2021-04 18:08: 11 Yes 1{tbl} Take 1 tablet by mouth daily. Complete women's 50+, [employer] brand. [facility] Cholecalcif melissa, Vitamin D3, (VITAMIN D3) 1,000 unit Cap 2021-04 18:08: 11 Yes 2{capsu le} Take 2 Caps by mouth daily. [facility] turmeric root extract 500 mg Cap 2021-04 18:08: 11 Yes 500mg Take 500 mg by mouth 2 (two) times daily. [facility] loratadine 10 mg tablet 2021-04 18:08: 11 09-07 00:00 :00 No 10mg Take 1 tablet by mouth in the morning. [facility] benzonatate 100 mg capsule 2021-04 00:00: 00 03-25 05:59 :00 No [id number] 200mg Take 2 capsules by mouth every 8 (eight) hours as needed for Cough for up to 30 days. [facility] ascorbic acid, vitamin C, 500 mg tablet 2021-04 00:00: 00 03-02 05:59 :00 No [id number] 500mg Take 1 tablet by mouth in the morning for 7 days. [facility] cholecalcif melissa (vitamin D3) tablet 2,000 Units 2021-04 15:00: 00 Yes 2000U 2,000 Units, Oral, DAILY, First dose (after last modificati on) on Mon02/21/22 at 0900, Until Discontinu ed, Routine [facility] aspirin chewable tablet 81 mg 2021-04 15:00: 00 Yes 81mg 81 mg, Oral, DAILY, First dose on Mon02/21/22 at 0900, Until Discontinu ed, Routine [facility] aspirin tablet 325 mg 2021-04 15:00: 00 02-21 02:12 :48 No 325mg 325 mg, Oral, DAILY, First dose on Mon02/21/22 at 0900, Until Discontinu ed, Routine [facility] aspirin tablet 325 mg 2021-04 03:00: 00 02-21 02:54 :00 No 325mg 325 mg, Oral, ONCE, 1 dose, On 02/20/22 at 2100, Routine [facility] zinc sulfate (ORAZINC) capsule 50 mg 2021-04 02:45: 00 Yes 50mg 50 mg, Oral, DAILY, First dose on 02/20/22 at 2044, Until Discontinu ed, Routine [facility] ascorbic acid (vitamin C) (VITAMIN C) tablet 500 mg 2021-04 02:45: 00 Yes 500mg 500 mg, Oral, BID, First dose on 02/20/22 at 2044, Until Discontinu ed, Routine [facility] azithromyci n (ZITHROMAX) tablet 500 mg 2021-04 02:45: 00 02-22 17:25 :08 No 500mg 500 mg, Oral, DAILY, 5 doses, First dose on Mon02/20/22 at 2044, Last dose on Mon02/24/22 at 0900, VICTORIA
Re ason for Anti-Infec tive: Empiric Therapy for Suspected Infection< br>Empiric Therapy Site: Respirator y
Durat ion of therapy: 5 days [facility] cholecalcif melissa (vitamin D3) tablet 1,000 Units 2021-04 02:45: 00 02-21 03:30 :16 No 1000U 1,000 Units, Oral, DAILY, First dose on 02/20/22 at 2044, Until Discontinu ed, Routine [facility] acetaminoph en (TYLENOL) tablet 650 mg 2021-04 02:36: 50 Yes 650mg 650 mg, Oral, Q6HPRN, Starting on 02/20/22 at 2035, Until Discontinu ed, Routine, Temp > 38.5 C, Pain (scale 1-3) [facility] dextrometho alejandro-aníbalf enesin (ROBITUSSIN DM) 10-100 mg/5 mL solution 10 mL 2021-04 02:36: 38 Yes 10mL 10 mL, Oral, Q6HPRN, Starting on 11/6/22 at 2036, Until Discontinu ed, Routine, Cough [facility] enoxaparin (LOVENOX) injection 40 mg 2021-04 23:00: 00 Yes 40mg 40 mg, Subcutaneo us, DAILY, First dose on Mon02/20/22 at 1700, Until Discontinu ed, Routine [facility] ibuprofen (MOTRIN IB) tablet 200 mg 2021-04 22:34: 41 Yes 200mg 200 mg, Oral, Q4HPRN, Starting on Mon02/20/22 at 1634, Until Discontinu ed, Routine, Temp > 38.5 C [facility] NaCl 0.9% (NS) IV infusion 1,000 mL 2021-04 19:45: 00 02-21 14:00 :49 No 1000mL at 125 mL/hr, IV Infusion, CONTINUOUS , Starting on Mon02/20/22 at 1345, Until Mon02/21/22 at 0800, Routine [facility] iopamidol (ISOVUE 370-500 mL) injection 100 mL 2021-04 19:30: 00 02-20 19:45 :00 No [id number] 100mL 100 mL, Intravenou s, ONCE, 1 dose, On Mon02/20/22 at 1345, Routine [facility] molnupiravi r 200 mg capsule 2021-04 00:00: 00 02-22 00:00 :00 No [id number] 800mg Take 4 capsules by mouth every 12 (twelve) hours. [facility] benzonatate 100 mg capsule 2021-04 00:00: 00 02-22 00:00 :00 No [id number] 200mg Take 2 capsules by mouth every 8 (eight) hours as needed for Cough. [facility] multivitami n tablet 04-20 08:27: 15 Yes 1{tbl} Take 1 tablet by mouth daily. Complete women's 50+, [employer] brand. [facility] Cholecalcif melissa, Vitamin D3, (VITAMIN D3) 1,000 unit Cap 04-20 08:27: 15 Yes 2{capsu le} Take 2 Caps by mouth daily. [facility] turmeric root extract 500 mg Cap 04-20 08:27: 15 Yes 500mg Take 500 mg by mouth 2 (two) times daily. [facility] loratadine 10 mg tablet 04-20 08:27: 15 Yes 10mg Take 10 mg by mouth daily. [facility] mupirocin 2 % ointment 04-20 00:00: 00 09-07 00:00 :00 No [id number] Apply to area(s) 3 (three) times daily. [facility] Diclofenac Sodium (VOLTAREN) 1 % gel 04-20 00:00: 00 10-21 00:00 :00 No [id number] 2g gel BID to Left knee. [facility] triamcinolo ne (NASACORT) 55 mcg nasal inhaler 2017-04 00:00: 00 Yes [id number] 2{spray } Use 2 Sprays in each nostril daily. [facility] cycloSPORIN E 0.05 % drops 2016-04 00:00: 00 Yes [id number] 1[drp] Place 1 Drop in both eyes every 12 (twelve) hours. [facility] Immunizations Ordered Immunization Name Filled Immunization Name Date Status Comments Source Influenza Virus Vaccine,quad Im,preserve Free 65+ (FLUAD) 2023-01-20 00:00:00 Completed [facility] Influenza Virus Vaccine,quad Im,preserve Free 65+ (FLUAD) 2023-01-20 00:00:00 Completed [facility] Influenza Virus Vaccine,quad Im,preserve Free 65+ (FLUAD) 2023-01-20 00:00:00 Completed [facility] Remdesivir 2022-02-22 00:00:00 Completed [facility] Remdesivir 2022-02-22 00:00:00 Completed [facility] Remdesivir 2022-02-22 00:00:00 Completed [facility] Remdesivir 2022-02-22 00:00:00 Completed [facility] Remdesivir 2022-02-22 00:00:00 Completed [facility] Remdesivir 2022-02-22 00:00:00 Completed [facility] Remdesivir 2022-02-22 00:00:00 Completed [facility] Remdesivir 2022-02-22 00:00:00 Completed [facility] Remdesivir 2022-02-22 00:00:00 Completed [facility] Remdesivir 2022-02-22 00:00:00 Completed [facility] Remdesivir 2022-02-22 00:00:00 Completed [facility] Remdesivir 2022-02-22 00:00:00 Completed [facility] Remdesivir 2022-02-22 00:00:00 Completed [facility] Remdesivir 2022-02-22 00:00:00 Completed [facility] Remdesivir 2022-02-22 00:00:00 Completed [facility] Remdesivir 2022-02-22 00:00:00 Completed [facility] Remdesivir 2022-02-22 00:00:00 Completed [facility] Remdesivir 2022-02-22 00:00:00 Completed [facility] Remdesivir 2022-02-22 00:00:00 Completed [facility] Remdesivir 2022-02-22 00:00:00 Completed [facility] Remdesivir 2022-02-22 00:00:00 Completed [facility] Remdesivir 2022-02-22 00:00:00 Completed [facility] Remdesivir 2022-02-22 00:00:00 Completed [facility] Remdesivir 2022-02-22 00:00:00 Completed [facility] Remdesivir 2022-02-22 00:00:00 Completed [facility] Remdesivir 2022-02-22 00:00:00 Completed [facility] Remdesivir 2022-02-22 00:00:00 Completed [facility] Remdesivir 2022-02-21 00:00:00 Completed [facility] Remdesivir 2022-02-21 00:00:00 Completed [facility] Remdesivir 2022-02-21 00:00:00 Completed [facility] Remdesivir 2022-02-21 00:00:00 Completed [facility] Remdesivir 2022-02-21 00:00:00 Completed [facility] Remdesivir 2022-02-21 00:00:00 Completed [facility] Remdesivir 2022-02-21 00:00:00 Completed [facility] Remdesivir 2022-02-21 00:00:00 Completed [facility] Remdesivir 2022-02-21 00:00:00 Completed [facility] Remdesivir 2022-02-21 00:00:00 Completed [facility] Remdesivir 2022-02-21 00:00:00 Completed [facility] Remdesivir 2022-02-21 00:00:00 Completed [facility] Remdesivir 2022-02-21 00:00:00 Completed [facility] Remdesivir 2022-02-21 00:00:00 Completed [facility] Remdesivir 2022-02-21 00:00:00 Completed [facility] Remdesivir 2022-02-21 00:00:00 Completed [facility] Remdesivir 2022-02-21 00:00:00 Completed [facility] Remdesivir 2022-02-21 00:00:00 Completed [facility] Remdesivir 2022-02-21 00:00:00 Completed [facility] Remdesivir 2022-02-21 00:00:00 Completed [facility] Remdesivir 2022-02-21 00:00:00 Completed Remdesivir 2022-02-21 00:00:00 Completed Remdesivir 2022-02-21 00:00:00 Completed Remdesivir 2022-02-21 00:00:00 Completed [facility] Remdesivir 2022-02-21 00:00:00 Completed [facility] Remdesivir 2022-02-21 00:00:00 Completed [facility] Remdesivir 2022-02-20 00:00:00 Completed [facility] Remdesivir 2022-02-20 00:00:00 Completed [facility] Remdesivir 2022-02-20 00:00:00 Completed [facility] Remdesivir 2022-02-20 00:00:00 Completed [facility] Remdesivir 2022-02-20 00:00:00 Completed [facility] Remdesivir 2022-02-20 00:00:00 Completed [facility] Remdesivir 2022-02-20 00:00:00 Completed [facility] Remdesivir 2022-02-20 00:00:00 Completed [facility] Remdesivir 2022-02-20 00:00:00 Completed [facility] Remdesivir 2022-02-20 00:00:00 Completed [facility] Remdesivir 2022-02-20 00:00:00 Completed [facility] Remdesivir 2022-02-20 00:00:00 Completed [facility] Remdesivir 2022-02-20 00:00:00 Completed [facility] Remdesivir 2022-02-20 00:00:00 Completed [facility] Remdesivir 2022-02-20 00:00:00 Completed [facility] Remdesivir 2022-02-20 00:00:00 Completed [facility] Remdesivir 2022-02-20 00:00:00 Completed [facility] Remdesivir 2022-02-20 00:00:00 Completed [facility] Remdesivir 2022-02-20 00:00:00 Completed [facility] Remdesivir 2022-02-20 00:00:00 Completed [facility] Remdesivir 2022-02-20 00:00:00 Completed [facility] Remdesivir 2022-02-20 00:00:00 Completed [facility] Remdesivir 2022-02-20 00:00:00 Completed [facility] Remdesivir 2022-02-20 00:00:00 Completed [facility] Remdesivir 2022-02-20 00:00:00 Completed [facility] Remdesivir 2022-02-20 00:00:00 Completed [facility] Influenza High Dose Quad 2021-12-18 00:00:00 Completed [facility] Influenza High Dose Quad 2021-12-18 00:00:00 Completed [facility] Influenza High Dose Quad 2021-12-18 00:00:00 Completed [facility] Influenza High Dose Quad 2021-12-18 00:00:00 Completed [facility] Influenza High Dose Quad 2021-12-18 00:00:00 Completed [facility] Influenza High Dose Quad 2021-12-18 00:00:00 Completed [facility] Influenza High Dose Quad 2021-12-18 00:00:00 Completed [facility] Influenza High Dose Quad 2021-12-18 00:00:00 Completed [facility] Influenza High Dose Quad 2021-12-18 00:00:00 Completed [facility] Influenza High Dose Quad 2021-12-18 00:00:00 Completed [facility] Influenza High Dose Quad 2021-12-18 00:00:00 Completed [facility] Influenza High Dose Quad 2021-12-18 00:00:00 Completed [facility] Influenza High Dose Quad 2021-12-18 00:00:00 Completed Influenza High Dose Quad 2021-12-18 00:00:00 Completed Influenza High Dose Quad 2021-12-18 00:00:00 Completed SARS-COV-2 COVID-19 MODERNA 0.25ML BOOSTER VACCINE 2021-02-09 00:00:00 Completed [facility] SARS-COV-2 COVID-19 MODERNA 0.25ML BOOSTER VACCINE 2021-02-09 00:00:00 Completed [facility] SARS-COV-2 COVID-19 MODERNA 0.25ML BOOSTER VACCINE 2021-02-09 00:00:00 Completed [facility] SARS-COV-2 COVID-19 MODERNA 0.25ML BOOSTER VACCINE 2021-02-09 00:00:00 Completed [facility] SARS-COV-2 COVID-19 MODERNA 0.25ML BOOSTER VACCINE 2021-02-09 00:00:00 Completed [facility] SARS-COV-2 COVID-19 MODERNA 0.25ML BOOSTER VACCINE 2021-02-09 00:00:00 Completed [facility] SARS-COV-2 COVID-19 MODERNA 0.25ML BOOSTER VACCINE 2021-02-09 00:00:00 Completed [facility] SARS-COV-2 COVID-19 MODERNA 0.25ML BOOSTER VACCINE 2021-02-09 00:00:00 Completed [facility] SARS-COV-2 COVID-19 MODERNA 0.25ML BOOSTER VACCINE 2021-02-09 00:00:00 Completed [facility] SARS-COV-2 COVID-19 MODERNA 0.25ML BOOSTER VACCINE 2021-02-09 00:00:00 Completed [facility] SARS-COV-2 COVID-19 MODERNA 0.25ML BOOSTER VACCINE 2021-02-09 00:00:00 Completed [facility] SARS-COV-2 COVID-19 MODERNA 0.25ML BOOSTER VACCINE 2021-02-09 00:00:00 Completed [facility] SARS-COV-2 COVID-19 MODERNA 0.25ML BOOSTER VACCINE 2021-02-09 00:00:00 Completed [facility] SARS-COV-2 COVID-19 MODERNA 0.25ML BOOSTER VACCINE 2021-02-09 00:00:00 Completed [facility] SARS-COV-2 COVID-19 MODERNA 0.25ML BOOSTER VACCINE 2021-02-09 00:00:00 Completed [facility] SARS-COV-2 COVID-19 MODERNA 0.25ML BOOSTER VACCINE 2021-02-09 00:00:00 Completed [facility] SARS-COV-2 COVID-19 MODERNA 0.25ML BOOSTER VACCINE 2021-02-09 00:00:00 Completed [facility] SARS-COV-2 COVID-19 MODERNA 0.25ML BOOSTER VACCINE 2021-02-09 00:00:00 Completed [facility] SARS-COV-2 COVID-19 MODERNA 0.25ML BOOSTER VACCINE 2021-02-09 00:00:00 Completed [facility] SARS-COV-2 COVID-19 MODERNA 0.25ML BOOSTER VACCINE 2021-02-09 00:00:00 Completed [facility] SARS-COV-2 COVID-19 MODERNA 0.25ML BOOSTER VACCINE 2021-02-09 00:00:00 Completed [facility] SARS-COV-2 COVID-19 MODERNA 0.25ML BOOSTER VACCINE 2021-02-09 00:00:00 Completed [facility] SARS-COV-2 COVID-19 MODERNA 0.25ML BOOSTER VACCINE 2021-02-09 00:00:00 Completed [facility] SARS-COV-2 COVID-19 MODERNA BOOSTER VACCINE 2021-02-09 00:00:00 Completed [facility] SARS-COV-2 COVID-19 MODERNA BOOSTER VACCINE 2021-02-09 00:00:00 Completed [facility] SARS-COV-2 COVID-19 MODERNA BOOSTER VACCINE 2021-02-09 00:00:00 Completed [facility] SARS-COV-2 COVID-19 MODERNA BOOSTER VACCINE 2021-02-09 00:00:00 Completed [facility] SARS-COV-2 COVID-19 MODERNA BOOSTER VACCINE 2021-02-09 00:00:00 Completed [facility] SARS-COV-2 COVID-19 MODERNA 0.25ML BOOSTER VACCINE 2021-02-09 00:00:00 Completed [facility] SARS-COV-2 COVID-19 MODERNA 0.25ML BOOSTER VACCINE 2021-02-09 00:00:00 Completed [facility] SARS-COV-2 COVID-19 MODERNA 0.25ML BOOSTER VACCINE 2021-02-09 00:00:00 Completed [facility] SARS-COV-2 COVID-19 MODERNA 0.25ML BOOSTER VACCINE 2021-02-09 00:00:00 Completed [facility] SARS-COV-2 COVID-19 MODERNA 0.25ML BOOSTER VACCINE 2021-02-09 00:00:00 Completed [facility] Influenza High Dose Quad 2021-01-09 00:00:00 Completed [facility] Influenza High Dose Quad 2021-01-09 00:00:00 Completed [facility] Influenza High Dose Quad 2021-01-09 00:00:00 Completed [facility] Influenza High Dose Quad 2021-01-09 00:00:00 Completed [facility] Influenza High Dose Quad 2021-01-09 00:00:00 Completed [facility] Influenza High Dose Quad 2021-01-09 00:00:00 Completed [facility] Influenza High Dose Quad 2021-01-09 00:00:00 Completed [facility] Influenza High Dose Quad 2021-01-09 00:00:00 Completed [facility] Influenza High Dose Quad 2021-01-09 00:00:00 Completed [facility] Influenza High Dose Quad 2021-01-09 00:00:00 Completed [facility] Influenza High Dose Quad 2021-01-09 00:00:00 Completed [facility] Influenza High Dose Quad 2021-01-09 00:00:00 Completed [facility] Influenza High Dose Quad 2021-01-09 00:00:00 Completed [facility] Influenza High Dose Quad 2021-01-09 00:00:00 Completed Influenza High Dose Quad 2021-01-09 00:00:00 Completed Influenza High Dose Quad 2021-01-09 00:00:00 Completed Influenza High Dose 2020-12-16 00:00:00 Completed [facility] Influenza High Dose 2020-12-16 00:00:00 Completed [facility] Influenza High Dose 2020-12-16 00:00:00 Completed [facility] Influenza High Dose 2020-12-16 00:00:00 Completed [facility] Influenza High Dose 2020-12-16 00:00:00 Completed [facility] Influenza High Dose 2020-12-16 00:00:00 Completed [facility] Influenza High Dose 2020-12-16 00:00:00 Completed [facility] Influenza High Dose 2020-12-16 00:00:00 Completed [facility] Influenza High Dose 2020-12-16 00:00:00 Completed [facility] Influenza High Dose 2020-12-16 00:00:00 Completed [facility] Influenza High Dose 2020-12-16 00:00:00 Completed [facility] Influenza High Dose 2020-12-16 00:00:00 Completed [facility] Influenza High Dose 2020-12-16 00:00:00 Completed [facility] Influenza High Dose 2020-12-16 00:00:00 Completed [facility] Influenza High Dose 2020-12-16 00:00:00 Completed [facility] Influenza High Dose 2020-12-16 00:00:00 Completed [facility] Influenza High Dose 2020-12-16 00:00:00 Completed [facility] Influenza High Dose 2020-12-16 00:00:00 Completed [facility] Influenza High Dose 2020-12-16 00:00:00 Completed [facility] Influenza High Dose 2020-12-16 00:00:00 Completed [facility] Influenza High Dose 2020-12-16 00:00:00 Completed [facility] Influenza, High-Dose, Trivalent, PF (FLUZONE) 2020-12-16 00:00:00 Completed Influenza, High-Dose, Trivalent, PF (FLUZONE) 2020-12-16 00:00:00 Completed Influenza, High-Dose, Trivalent, PF (FLUZONE) 2020-12-16 00:00:00 Completed Influenza High Dose 2020-12-16 00:00:00 Completed [facility] Influenza High Dose 2020-12-16 00:00:00 Completed [facility] Influenza High Dose 2020-12-16 00:00:00 Completed [facility] Influenza High Dose 2020-12-16 00:00:00 Completed [facility] Influenza High Dose 2020-12-16 00:00:00 Completed [facility] Influenza High Dose 2020-12-16 00:00:00 Completed [facility] Influenza High Dose 2020-12-16 00:00:00 Completed [facility] Influenza High Dose 2020-12-16 00:00:00 Completed [facility] Influenza High Dose 2020-12-16 00:00:00 Completed [facility] Influenza High Dose 2020-12-16 00:00:00 Completed [facility] TDAP 2020-08-21 00:00:00 Completed [facility] TDAP 2020-08-21 00:00:00 Completed [facility] TDAP 2020-08-21 00:00:00 Completed [facility] TDAP 2020-08-21 00:00:00 Completed [facility] TDAP 2020-08-21 00:00:00 Completed [facility] TDAP 2020-08-21 00:00:00 Completed [facility] TDAP 2020-08-21 00:00:00 Completed [facility] TDAP 2020-08-21 00:00:00 Completed [facility] TDAP 2020-08-21 00:00:00 Completed [facility] TDAP 2020-08-21 00:00:00 Completed [facility] TDAP 2020-08-21 00:00:00 Completed [facility] TDAP 2020-08-21 00:00:00 Completed [facility] TDAP 2020-08-21 00:00:00 Completed [facility] TDAP 2020-08-21 00:00:00 Completed [facility] TDAP 2020-08-21 00:00:00 Completed [facility] TDAP 2020-08-21 00:00:00 Completed [facility] TDAP 2020-08-21 00:00:00 Completed [facility] TDAP 2020-08-20 00:00:00 Completed [facility] TDAP 2020-08-20 00:00:00 Completed [facility] TDAP 2020-08-20 00:00:00 Completed [facility] TDAP 2020-08-20 00:00:00 Completed [facility] TDAP 2020-08-20 00:00:00 Completed [facility] TDAP 2020-08-20 00:00:00 Completed [facility] TDAP 2020-08-20 00:00:00 Completed [facility] TDAP 2020-08-20 00:00:00 Completed [facility] TDAP 2020-08-20 00:00:00 Completed [facility] TDAP 2020-08-20 00:00:00 Completed [facility] TDAP 2020-08-20 00:00:00 Completed [facility] TDAP 2020-08-20 00:00:00 Completed [facility] TDAP 2020-08-20 00:00:00 Completed [facility] TDAP 2020-08-20 00:00:00 Completed [facility] TDAP 2020-08-20 00:00:00 Completed TDAP 2020-08-20 00:00:00 Completed TDAP 2020-08-20 00:00:00 Completed SARS-COV-2 COVID-19 MODERNA 12+ YRS VACCINE 2020-05-19 00:00:00 Completed [facility] SARS-COV-2 COVID-19 MODERNA 12+ YRS VACCINE 2020-05-19 00:00:00 Completed [facility] SARS-COV-2 COVID-19 MODERNA 12+ YRS VACCINE 2020-05-19 00:00:00 Completed [facility] SARS-COV-2 COVID-19 MODERNA 12+ YRS VACCINE 2020-05-19 00:00:00 Completed [facility] SARS-COV-2 COVID-19 MODERNA 12+ YRS VACCINE 2020-05-19 00:00:00 Completed [facility] SARS-COV-2 COVID-19 MODERNA 12+ YRS VACCINE 2020-05-19 00:00:00 Completed [facility] SARS-COV-2 COVID-19 MODERNA 12+ YRS VACCINE 2020-05-19 00:00:00 Completed [facility] SARS-COV-2 COVID-19 MODERNA 12+ YRS VACCINE 2020-05-19 00:00:00 Completed [facility] SARS-COV-2 COVID-19 MODERNA 12+ YRS VACCINE 2020-05-19 00:00:00 Completed [facility] SARS-COV-2 COVID-19 MODERNA 12+ YRS VACCINE 2020-05-19 00:00:00 Completed [facility] SARS-COV-2 COVID-19 MODERNA 12+ YRS VACCINE 2020-05-19 00:00:00 Completed [facility] SARS-COV-2 COVID-19 MODERNA 12+ YRS VACCINE 2020-05-19 00:00:00 Completed [facility] SARS-COV-2 COVID-19 MODERNA 12+ YRS VACCINE 2020-05-19 00:00:00 Completed [facility] SARS-COV-2 COVID-19 MODERNA 12+ YRS VACCINE 2020-05-19 00:00:00 Completed [facility] SARS-COV-2 COVID-19 MODERNA 12+ YRS VACCINE 2020-05-19 00:00:00 Completed [facility] SARS-COV-2 COVID-19 MODERNA 12+ YRS VACCINE 2020-05-19 00:00:00 Completed [facility] SARS-COV-2 COVID-19 MODERNA 12+ YRS VACCINE 2020-05-19 00:00:00 Completed [facility] SARS-COV-2 COVID-19 MODERNA 12+ YRS VACCINE 2020-05-19 00:00:00 Completed [facility] SARS-COV-2 COVID-19 MODERNA 12+ YRS VACCINE 2020-05-19 00:00:00 Completed [facility] SARS-COV-2 COVID-19 MODERNA 12+ YRS VACCINE 2020-05-19 00:00:00 Completed [facility] SARS-COV-2 COVID-19 MODERNA 12+ YRS VACCINE 2020-05-19 00:00:00 Completed [facility] SARS-COV-2 COVID-19 MODERNA 12+ YRS VACCINE 2020-05-19 00:00:00 Completed SARS-COV-2 COVID-19 MODERNA 12+ YRS VACCINE 2020-05-19 00:00:00 Completed SARS-COV-2 COVID-19 MODERNA 12+ YRS VACCINE 2020-05-19 00:00:00 Completed SARS-COV-2 COVID-19 MODERNA VACCINE 2020-05-19 00:00:00 Completed [facility] SARS-COV-2 COVID-19 MODERNA VACCINE 2020-05-19 00:00:00 Completed [facility] SARS-COV-2 COVID-19 MODERNA VACCINE 2020-05-19 00:00:00 Completed [facility] SARS-COV-2 COVID-19 MODERNA VACCINE 2020-05-19 00:00:00 Completed [facility] SARS-COV-2 COVID-19 MODERNA VACCINE 2020-05-19 00:00:00 Completed [facility] SARS-COV-2 COVID-19 MODERNA 12+ YRS VACCINE 2020-05-19 00:00:00 Completed [facility] SARS-COV-2 COVID-19 MODERNA 12+ YRS VACCINE 2020-05-19 00:00:00 Completed [facility] SARS-COV-2 COVID-19 MODERNA 12+ YRS VACCINE 2020-05-19 00:00:00 Completed [facility] SARS-COV-2 COVID-19 MODERNA 12+ YRS VACCINE 2020-05-19 00:00:00 Completed [facility] SARS-COV-2 COVID-19 MODERNA 12+ YRS VACCINE 2020-05-19 00:00:00 Completed [facility] SARS-COV-2 COVID-19 MODERNA 12+ YRS VACCINE 2020-04-21 00:00:00 Completed [facility] SARS-COV-2 COVID-19 MODERNA 12+ YRS VACCINE 2020-04-21 00:00:00 Completed [facility] SARS-COV-2 COVID-19 MODERNA 12+ YRS VACCINE 2020-04-21 00:00:00 Completed [facility] SARS-COV-2 COVID-19 MODERNA 12+ YRS VACCINE 2020-04-21 00:00:00 Completed [facility] SARS-COV-2 COVID-19 MODERNA 12+ YRS VACCINE 2020-04-21 00:00:00 Completed [facility] SARS-COV-2 COVID-19 MODERNA 12+ YRS VACCINE 2020-04-21 00:00:00 Completed [facility] SARS-COV-2 COVID-19 MODERNA 12+ YRS VACCINE 2020-04-21 00:00:00 Completed [facility] SARS-COV-2 COVID-19 MODERNA 12+ YRS VACCINE 2020-04-21 00:00:00 Completed [facility] SARS-COV-2 COVID-19 MODERNA 12+ YRS VACCINE 2020-04-21 00:00:00 Completed [facility] SARS-COV-2 COVID-19 MODERNA 12+ YRS VACCINE 2020-04-21 00:00:00 Completed [facility] SARS-COV-2 COVID-19 MODERNA 12+ YRS VACCINE 2020-04-21 00:00:00 Completed [facility] SARS-COV-2 COVID-19 MODERNA 12+ YRS VACCINE 2020-04-21 00:00:00 Completed [facility] SARS-COV-2 COVID-19 MODERNA 12+ YRS VACCINE 2020-04-21 00:00:00 Completed [facility] SARS-COV-2 COVID-19 MODERNA 12+ YRS VACCINE 2020-04-21 00:00:00 Completed [facility] SARS-COV-2 COVID-19 MODERNA 12+ YRS VACCINE 2020-04-21 00:00:00 Completed [facility] SARS-COV-2 COVID-19 MODERNA 12+ YRS VACCINE 2020-04-21 00:00:00 Completed [facility] SARS-COV-2 COVID-19 MODERNA 12+ YRS VACCINE 2020-04-21 00:00:00 Completed [facility] SARS-COV-2 COVID-19 MODERNA 12+ YRS VACCINE 2020-04-21 00:00:00 Completed [facility] SARS-COV-2 COVID-19 MODERNA 12+ YRS VACCINE 2020-04-21 00:00:00 Completed [facility] SARS-COV-2 COVID-19 MODERNA 12+ YRS VACCINE 2020-04-21 00:00:00 Completed [facility] SARS-COV-2 COVID-19 MODERNA 12+ YRS VACCINE 2020-04-21 00:00:00 Completed [facility] SARS-COV-2 COVID-19 MODERNA 12+ YRS VACCINE 2020-04-21 00:00:00 Completed [facility] SARS-COV-2 COVID-19 MODERNA 12+ YRS VACCINE 2020-04-21 00:00:00 Completed [facility] SARS-COV-2 COVID-19 MODERNA VACCINE 2020-04-21 00:00:00 Completed [facility] SARS-COV-2 COVID-19 MODERNA VACCINE 2020-04-21 00:00:00 Completed [facility] SARS-COV-2 COVID-19 MODERNA VACCINE 2020-04-21 00:00:00 Completed [facility] SARS-COV-2 COVID-19 MODERNA VACCINE 2020-04-21 00:00:00 Completed [facility] SARS-COV-2 COVID-19 MODERNA VACCINE 2020-04-21 00:00:00 Completed [facility] SARS-COV-2 COVID-19 MODERNA 12+ YRS VACCINE 2020-04-21 00:00:00 Completed [facility] SARS-COV-2 COVID-19 MODERNA 12+ YRS VACCINE 2020-04-21 00:00:00 Completed [facility] SARS-COV-2 COVID-19 MODERNA 12+ YRS VACCINE 2020-04-21 00:00:00 Completed [facility] SARS-COV-2 COVID-19 MODERNA 12+ YRS VACCINE 2020-04-21 00:00:00 Completed [facility] SARS-COV-2 COVID-19 MODERNA 12+ YRS VACCINE 2020-04-21 00:00:00 Completed [facility] Influenza High Dose Quad 2020-01-11 00:00:00 Completed [facility] Influenza High Dose Quad 2020-01-11 00:00:00 Completed [facility] Influenza High Dose Quad 2020-01-11 00:00:00 Completed [facility] Influenza High Dose Quad 2020-01-11 00:00:00 Completed [facility] Influenza High Dose Quad 2020-01-11 00:00:00 Completed [facility] Influenza High Dose Quad 2020-01-11 00:00:00 Completed [facility] Influenza High Dose Quad 2020-01-11 00:00:00 Completed [facility] Influenza High Dose Quad 2020-01-11 00:00:00 Completed [facility] Influenza High Dose Quad 2020-01-11 00:00:00 Completed [facility] Influenza High Dose Quad 2020-01-11 00:00:00 Completed [facility] Influenza High Dose Quad 2020-01-11 00:00:00 Completed [facility] Influenza High Dose Quad 2020-01-11 00:00:00 Completed [facility] Influenza High Dose Quad 2020-01-11 00:00:00 Completed [facility] Influenza High Dose Quad 2020-01-11 00:00:00 Completed [facility] Influenza High Dose Quad 2020-01-11 00:00:00 Completed [facility] Influenza High Dose Quad 2020-01-11 00:00:00 Completed [facility] Influenza High Dose Quad 2020-01-11 00:00:00 Completed [facility] Influenza High Dose Quad 2020-01-11 00:00:00 Completed [facility] Influenza High Dose Quad 2020-01-11 00:00:00 Completed [facility] Influenza High Dose Quad 2020-01-11 00:00:00 Completed [facility] Influenza High Dose Quad 2020-01-11 00:00:00 Completed Influenza High Dose Quad 2020-01-11 00:00:00 Completed Influenza High Dose Quad 2020-01-11 00:00:00 Completed Influenza High Dose Quad 2020-01-11 00:00:00 Completed [facility] Influenza High Dose Quad 2020-01-11 00:00:00 Completed [facility] Influenza High Dose Quad 2020-01-11 00:00:00 Completed [facility] Influenza High Dose Quad 2020-01-11 00:00:00 Completed [facility] Influenza High Dose Quad 2020-01-11 00:00:00 Completed [facility] Influenza High Dose Quad 2020-01-11 00:00:00 Completed [facility] Influenza High Dose Quad 2020-01-11 00:00:00 Completed [facility] Influenza High Dose Quad 2020-01-11 00:00:00 Completed [facility] Influenza High Dose Quad 2020-01-11 00:00:00 Completed [facility] Influenza High Dose Quad 2020-01-11 00:00:00 Completed [facility] Influenza High Dose 2018-12-17 00:00:00 Completed [facility] Influenza High Dose 2018-12-17 00:00:00 Completed [facility] Influenza High Dose 2018-12-17 00:00:00 Completed [facility] Influenza High Dose 2018-12-17 00:00:00 Completed [facility] Influenza High Dose 2018-12-17 00:00:00 Completed [facility] Influenza High Dose 2018-12-17 00:00:00 Completed [facility] Influenza High Dose 2018-12-17 00:00:00 Completed [facility] Influenza High Dose 2018-12-17 00:00:00 Completed [facility] Influenza High Dose 2018-12-17 00:00:00 Completed [facility] Influenza High Dose 2018-12-17 00:00:00 Completed [facility] Influenza High Dose 2018-12-17 00:00:00 Completed [facility] Influenza High Dose 2018-12-17 00:00:00 Completed [facility] Influenza High Dose 2018-12-17 00:00:00 Completed [facility] Influenza High Dose 2018-12-17 00:00:00 Completed [facility] Influenza High Dose 2018-12-17 00:00:00 Completed [facility] Influenza High Dose 2018-12-17 00:00:00 Completed [facility] Influenza High Dose 2018-12-17 00:00:00 Completed [facility] Influenza High Dose 2018-12-17 00:00:00 Completed [facility] Influenza High Dose 2018-12-17 00:00:00 Completed [facility] Influenza High Dose 2018-12-17 00:00:00 Completed [facility] Influenza, High-Dose, Trivalent, PF (FLUZONE) 2018-12-17 00:00:00 Completed Influenza, High-Dose, Trivalent, PF (FLUZONE) 2018-12-17 00:00:00 Completed Influenza, High-Dose, Trivalent, PF (FLUZONE) 2018-12-17 00:00:00 Completed Influenza High Dose 2018-12-17 00:00:00 Completed [facility] Influenza High Dose 2018-12-17 00:00:00 Completed [facility] Influenza High Dose 2018-12-17 00:00:00 Completed [facility] Influenza High Dose 2018-12-17 00:00:00 Completed [facility] Influenza High Dose 2018-12-17 00:00:00 Completed [facility] Influenza High Dose 2018-12-17 00:00:00 Completed [facility] Influenza High Dose 2018-12-17 00:00:00 Completed [facility] Influenza High Dose 2018-12-17 00:00:00 Completed [facility] Influenza High Dose 2018-12-17 00:00:00 Completed [facility] Influenza High Dose 2018-12-17 00:00:00 Completed [facility] Zoster Vaccine Recombinant 2018-06-19 00:00:00 Completed [facility] Zoster Vaccine Recombinant 2018-06-19 00:00:00 Completed [facility] Zoster Vaccine Recombinant 2018-06-19 00:00:00 Completed [facility] Zoster Vaccine Recombinant 2018-06-19 00:00:00 Completed [facility] Zoster Vaccine Recombinant 2018-06-19 00:00:00 Completed [facility] Zoster Vaccine Recombinant 2018-06-19 00:00:00 Completed [facility] Zoster Vaccine Recombinant 2018-06-19 00:00:00 Completed [facility] Zoster Vaccine Recombinant 2018-06-19 00:00:00 Completed [facility] Zoster Vaccine Recombinant 2018-06-19 00:00:00 Completed [facility] Zoster Vaccine Recombinant 2018-06-19 00:00:00 Completed [facility] Zoster Vaccine Recombinant 2018-06-19 00:00:00 Completed [facility] Zoster Vaccine Recombinant 2018-06-19 00:00:00 Completed [facility] Zoster Vaccine Recombinant 2018-06-19 00:00:00 Completed [facility] Zoster Vaccine Recombinant 2018-06-19 00:00:00 Completed [facility] Zoster Vaccine Recombinant 2018-06-19 00:00:00 Completed [facility] Zoster Vaccine Recombinant 2018-06-19 00:00:00 Completed [facility] Zoster Vaccine Recombinant 2018-06-19 00:00:00 Completed [facility] Zoster Vaccine Recombinant 2018-06-19 00:00:00 Completed [facility] Zoster Vaccine Recombinant 2018-06-19 00:00:00 Completed [facility] Zoster Vaccine Recombinant 2018-06-19 00:00:00 Completed [facility] Zoster Vaccine Recombinant 2018-06-19 00:00:00 Completed [facility] Zoster Vaccine Recombinant 2018-06-19 00:00:00 Completed Zoster Vaccine Recombinant 2018-06-19 00:00:00 Completed Zoster Vaccine Recombinant 2018-06-19 00:00:00 Completed Zoster Vaccine Recombinant 2018-06-19 00:00:00 Completed [facility] Zoster Vaccine Recombinant 2018-06-19 00:00:00 Completed [facility] Zoster Vaccine Recombinant 2018-06-19 00:00:00 Completed [facility] Zoster Vaccine Recombinant 2018-06-19 00:00:00 Completed [facility] Zoster Vaccine Recombinant 2018-06-19 00:00:00 Completed [facility] Zoster Vaccine Recombinant 2018-06-19 00:00:00 Completed [facility] Zoster Vaccine Recombinant 2018-06-19 00:00:00 Completed [facility] Zoster Vaccine Recombinant 2018-06-19 00:00:00 Completed [facility] Zoster Vaccine Recombinant 2018-06-19 00:00:00 Completed [facility] Zoster Vaccine Recombinant 2018-06-19 00:00:00 Completed [facility] Influenza High Dose 2018-01-14 00:00:00 Completed [facility] Influenza High Dose 2018-01-14 00:00:00 Completed [facility] Influenza High Dose 2018-01-14 00:00:00 Completed [facility] Influenza High Dose 2018-01-14 00:00:00 Completed [facility] Influenza High Dose 2018-01-14 00:00:00 Completed [facility] Influenza High Dose 2018-01-14 00:00:00 Completed [facility] Influenza High Dose 2018-01-14 00:00:00 Completed [facility] Influenza High Dose 2018-01-14 00:00:00 Completed [facility] Influenza High Dose 2018-01-14 00:00:00 Completed [facility] Influenza High Dose 2018-01-14 00:00:00 Completed [facility] Influenza High Dose 2018-01-14 00:00:00 Completed [facility] Influenza High Dose 2018-01-14 00:00:00 Completed [facility] Influenza High Dose 2018-01-14 00:00:00 Completed [facility] Influenza High Dose 2018-01-14 00:00:00 Completed [facility] Influenza High Dose 2018-01-14 00:00:00 Completed [facility] Influenza High Dose 2018-01-14 00:00:00 Completed [facility] Influenza High Dose 2018-01-14 00:00:00 Completed [facility] Influenza High Dose 2018-01-14 00:00:00 Completed [facility] Influenza High Dose 2018-01-14 00:00:00 Completed [facility] Influenza High Dose 2018-01-14 00:00:00 Completed [facility] Influenza, High-Dose, Trivalent, PF (FLUZONE) 2018-01-14 00:00:00 Completed Influenza, High-Dose, Trivalent, PF (FLUZONE) 2018-01-14 00:00:00 Completed Influenza, High-Dose, Trivalent, PF (FLUZONE) 2018-01-14 00:00:00 Completed Influenza High Dose 2018-01-14 00:00:00 Completed [facility] Influenza High Dose 2018-01-14 00:00:00 Completed [facility] Influenza High Dose 2018-01-14 00:00:00 Completed [facility] Influenza High Dose 2018-01-14 00:00:00 Completed [facility] Influenza High Dose 2018-01-14 00:00:00 Completed [facility] Influenza High Dose 2018-01-14 00:00:00 Completed [facility] Influenza High Dose 2018-01-14 00:00:00 Completed [facility] Influenza High Dose 2018-01-14 00:00:00 Completed [facility] Influenza High Dose 2018-01-14 00:00:00 Completed [facility] Influenza High Dose 2018-01-14 00:00:00 Completed [facility] Zoster Vaccine Recombinant 2017-12-29 00:00:00 Completed [facility] Zoster Vaccine Recombinant 2017-12-29 00:00:00 Completed [facility] Zoster Vaccine Recombinant 2017-12-29 00:00:00 Completed [facility] Zoster Vaccine Recombinant 2017-12-29 00:00:00 Completed [facility] Zoster Vaccine Recombinant 2017-12-29 00:00:00 Completed [facility] Zoster Vaccine Recombinant 2017-12-29 00:00:00 Completed [facility] Zoster Vaccine Recombinant 2017-12-29 00:00:00 Completed [facility] Zoster Vaccine Recombinant 2017-12-29 00:00:00 Completed [facility] Zoster Vaccine Recombinant 2017-12-29 00:00:00 Completed [facility] Zoster Vaccine Recombinant 2017-12-29 00:00:00 Completed [facility] Zoster Vaccine Recombinant 2017-12-29 00:00:00 Completed [facility] Zoster Vaccine Recombinant 2017-12-29 00:00:00 Completed [facility] Zoster Vaccine Recombinant 2017-12-29 00:00:00 Completed [facility] Zoster Vaccine Recombinant 2017-12-29 00:00:00 Completed [facility] Zoster Vaccine Recombinant 2017-12-29 00:00:00 Completed [facility] Zoster Vaccine Recombinant 2017-12-29 00:00:00 Completed [facility] Zoster Vaccine Recombinant 2017-12-29 00:00:00 Completed [facility] Zoster Vaccine Recombinant 2017-12-29 00:00:00 Completed [facility] Zoster Vaccine Recombinant 2017-12-29 00:00:00 Completed [facility] Zoster Vaccine Recombinant 2017-12-29 00:00:00 Completed [facility] Zoster Vaccine Recombinant 2017-12-29 00:00:00 Completed Zoster Vaccine Recombinant 2017-12-29 00:00:00 Completed Zoster Vaccine Recombinant 2017-12-29 00:00:00 Completed Zoster Vaccine Recombinant 2017-12-29 00:00:00 Completed [facility] Zoster Vaccine Recombinant 2017-12-29 00:00:00 Completed [facility] Zoster Vaccine Recombinant 2017-12-29 00:00:00 Completed [facility] Zoster Vaccine Recombinant 2017-12-29 00:00:00 Completed [facility] Zoster Vaccine Recombinant 2017-12-29 00:00:00 Completed [facility] Zoster Vaccine Recombinant 2017-12-29 00:00:00 Completed [facility] Zoster Vaccine Recombinant 2017-12-29 00:00:00 Completed [facility] Zoster Vaccine Recombinant 2017-12-29 00:00:00 Completed [facility] Zoster Vaccine Recombinant 2017-12-29 00:00:00 Completed [facility] Zoster Vaccine Recombinant 2017-12-29 00:00:00 Completed [facility] Influenza High Dose 2017-01-29 00:00:00 Completed [facility] Influenza High Dose 2017-01-29 00:00:00 Completed [facility] Influenza High Dose 2017-01-29 00:00:00 Completed [facility] Influenza High Dose 2017-01-29 00:00:00 Completed [facility] Influenza High Dose 2017-01-29 00:00:00 Completed [facility] Influenza High Dose 2017-01-29 00:00:00 Completed [facility] Influenza High Dose 2017-01-29 00:00:00 Completed [facility] Influenza High Dose 2017-01-29 00:00:00 Completed [facility] Influenza High Dose 2017-01-29 00:00:00 Completed [facility] Influenza High Dose 2017-01-29 00:00:00 Completed [facility] Influenza High Dose 2017-01-29 00:00:00 Completed [facility] Influenza High Dose 2017-01-29 00:00:00 Completed [facility] Influenza High Dose 2017-01-29 00:00:00 Completed [facility] Influenza High Dose 2017-01-29 00:00:00 Completed [facility] Influenza High Dose 2017-01-29 00:00:00 Completed [facility] Influenza High Dose 2017-01-29 00:00:00 Completed [facility] Influenza High Dose 2017-01-29 00:00:00 Completed [facility] Influenza High Dose 2017-01-29 00:00:00 Completed [facility] Influenza High Dose 2017-01-29 00:00:00 Completed [facility] Influenza High Dose 2017-01-29 00:00:00 Completed [facility] Influenza, High-Dose, Trivalent, PF (FLUZONE) 2017-01-29 00:00:00 Completed Influenza, High-Dose, Trivalent, PF (FLUZONE) 2017-01-29 00:00:00 Completed Influenza, High-Dose, Trivalent, PF (FLUZONE) 2017-01-29 00:00:00 Completed Influenza High Dose 2017-01-29 00:00:00 Completed [facility] Influenza High Dose 2017-01-29 00:00:00 Completed [facility] Influenza High Dose 2017-01-29 00:00:00 Completed [facility] Influenza High Dose 2017-01-29 00:00:00 Completed [facility] Influenza High Dose 2017-01-29 00:00:00 Completed [facility] Influenza High Dose 2017-01-29 00:00:00 Completed [facility] Influenza High Dose 2017-01-29 00:00:00 Completed [facility] Influenza High Dose 2017-01-29 00:00:00 Completed [facility] Influenza High Dose 2017-01-29 00:00:00 Completed [facility] Influenza High Dose 2017-01-29 00:00:00 Completed [facility] Pneumococcal 13 Conjugate, PCV13 (Prevnar 13) 2016-03-07 00:00:00 Completed [facility] Pneumococcal 13 Conjugate, PCV13 (Prevnar 13) 2016-03-07 00:00:00 Completed [facility] Pneumococcal 13 Conjugate, PCV13 (Prevnar 13) 2016-03-07 00:00:00 Completed [facility] Pneumococcal 13 Conjugate, PCV13 (Prevnar 13) 2016-03-07 00:00:00 Completed [facility] Pneumococcal 13 Conjugate, PCV13 (Prevnar 13) 2016-03-07 00:00:00 Completed [facility] Pneumococcal 13 Conjugate, PCV13 (Prevnar 13) 2016-03-07 00:00:00 Completed [facility] Pneumococcal 13 Conjugate, PCV13 (Prevnar 13) 2016-03-07 00:00:00 Completed [facility] Pneumococcal 13 Conjugate, PCV13 (Prevnar 13) 2016-03-07 00:00:00 Completed [facility] Pneumococcal 13 Conjugate, PCV13 (Prevnar 13) 2016-03-07 00:00:00 Completed [facility] Pneumococcal 13 Conjugate, PCV13 (Prevnar 13) 2016-03-07 00:00:00 Completed [facility] Pneumococcal 13 Conjugate, PCV13 (Prevnar 13) 2016-03-07 00:00:00 Completed [facility] Pneumococcal 13 Conjugate, PCV13 (Prevnar 13) 2016-03-07 00:00:00 Completed [facility] Pneumococcal 13 Conjugate, PCV13 (Prevnar 13) 2016-03-07 00:00:00 Completed [facility] Pneumococcal 13 Conjugate, PCV13 (Prevnar 13) 2016-03-07 00:00:00 Completed [facility] Pneumococcal 13 Conjugate, PCV13 (Prevnar 13) 2016-03-07 00:00:00 Completed [facility] Pneumococcal 13 Conjugate, PCV13 (Prevnar 13) 2016-03-07 00:00:00 Completed [facility] Pneumococcal 13 Conjugate, PCV13 (Prevnar 13) 2016-03-07 00:00:00 Completed [facility] Pneumococcal 13 Conjugate, PCV13 (Prevnar 13) 2016-03-07 00:00:00 Completed [facility] Pneumococcal 13 Conjugate, PCV13 (Prevnar 13) 2016-03-07 00:00:00 Completed [facility] Pneumococcal 13 Conjugate, PCV13 (Prevnar 13) 2016-03-07 00:00:00 Completed [facility] Pneumococcal 13 Conjugate, PCV13 (Prevnar 13) 2016-03-07 00:00:00 Completed [facility] Pneumococcal 13 Conjugate, PCV13 (Prevnar 13) 2016-03-07 00:00:00 Completed [facility] Pneumococcal 13 Conjugate, PCV13 (Prevnar 13) 2016-03-07 00:00:00 Completed [facility] Pneumococcal 13 Conjugate, PCV13 (Prevnar 13) 2016-03-07 00:00:00 Completed [facility] Pneumococcal 13 Conjugate, PCV13 (Prevnar 13) 2016-03-07 00:00:00 Completed [facility] Pneumococcal 13 Conjugate, PCV13 (Prevnar 13) 2016-03-07 00:00:00 Completed [facility] Pneumococcal 13 Conjugate, PCV13 (Prevnar 13) 2016-03-07 00:00:00 Completed [facility] Pneumococcal 13 Conjugate, PCV13 (Prevnar 13) 2016-03-07 00:00:00 Completed [facility] Pneumococcal 13 Conjugate, PCV13 (Prevnar 13) 2016-03-07 00:00:00 Completed [facility] Pneumococcal 13 Conjugate, PCV13 (Prevnar 13) 2016-03-07 00:00:00 Completed [facility] Pneumococcal 13 Conjugate, PCV13 (Prevnar 13) 2016-03-07 00:00:00 Completed [facility] Pneumococcal 13 Conjugate, PCV13 (Prevnar 13) 2016-03-07 00:00:00 Completed [facility] Pneumococcal 13 Conjugate, PCV13 (Prevnar 13) 2016-03-07 00:00:00 Completed [facility] Influenza Virus Vaccine 2016-02-03 00:00:00 Completed [facility] Influenza Virus Vaccine 2016-02-03 00:00:00 Completed [facility] Influenza Virus Vaccine 2016-02-03 00:00:00 Completed [facility] Influenza Virus Vaccine 2016-02-03 00:00:00 Completed [facility] Influenza Virus Vaccine 2016-02-03 00:00:00 Completed [facility] Influenza Virus Vaccine 2016-02-03 00:00:00 Completed [facility] Influenza Virus Vaccine 2016-02-03 00:00:00 Completed [facility] Influenza Virus Vaccine 2016-02-03 00:00:00 Completed [facility] Influenza Virus Vaccine 2016-02-03 00:00:00 Completed [facility] Influenza Virus Vaccine 2016-02-03 00:00:00 Completed [facility] Influenza Virus Vaccine 2016-02-03 00:00:00 Completed [facility] Influenza Virus Vaccine 2016-02-03 00:00:00 Completed [facility] Influenza Virus Vaccine 2016-02-03 00:00:00 Completed [facility] Influenza Virus Vaccine 2016-02-03 00:00:00 Completed [facility] Influenza Virus Vaccine 2016-02-03 00:00:00 Completed [facility] Influenza Virus Vaccine 2016-02-03 00:00:00 Completed [facility] Influenza Virus Vaccine 2016-02-03 00:00:00 Completed [facility] Influenza Virus Vaccine 2016-02-03 00:00:00 Completed [facility] Influenza Virus Vaccine 2016-02-03 00:00:00 Completed [facility] Influenza Virus Vaccine 2016-02-03 00:00:00 Completed [facility] Influenza Virus Vaccine 2016-02-03 00:00:00 Completed Influenza Virus Vaccine 2016-02-03 00:00:00 Completed Influenza Virus Vaccine 2016-02-03 00:00:00 Completed Influenza Virus Vaccine 2016-02-03 00:00:00 Completed [facility] Influenza Virus Vaccine 2016-02-03 00:00:00 Completed [facility] Influenza Virus Vaccine 2016-02-03 00:00:00 Completed [facility] Influenza Virus Vaccine 2016-02-03 00:00:00 Completed [facility] Influenza Virus Vaccine 2016-02-03 00:00:00 Completed [facility] Influenza Virus Vaccine 2016-02-03 00:00:00 Completed [facility] Influenza Virus Vaccine 2016-02-03 00:00:00 Completed [facility] Influenza Virus Vaccine 2016-02-03 00:00:00 Completed [facility] Influenza Virus Vaccine 2016-02-03 00:00:00 Completed [facility] Influenza Virus Vaccine 2016-02-03 00:00:00 Completed [facility] TDAP 2010-03-01 00:00:00 Completed [facility] TDAP 2010-03-01 00:00:00 Completed [facility] TDAP 2010-03-01 00:00:00 Completed [facility] TDAP 2010-03-01 00:00:00 Completed [facility] TDAP 2010-03-01 00:00:00 Completed [facility] TDAP 2010-03-01 00:00:00 Completed [facility] TDAP 2010-03-01 00:00:00 Completed [facility] TDAP 2010-03-01 00:00:00 Completed [facility] TDAP 2010-03-01 00:00:00 Completed [facility] TDAP 2010-03-01 00:00:00 Completed [facility] TDAP 2010-03-01 00:00:00 Completed [facility] TDAP 2010-03-01 00:00:00 Completed [facility] TDAP 2010-03-01 00:00:00 Completed [facility] TDAP 2010-03-01 00:00:00 Completed [facility] TDAP 2010-03-01 00:00:00 Completed [facility] TDAP 2010-03-01 00:00:00 Completed [facility] TDAP 2010-03-01 00:00:00 Completed [facility] TDAP 2010-03-01 00:00:00 Completed [facility] TDAP 2010-03-01 00:00:00 Completed [facility] TDAP 2010-03-01 00:00:00 Completed [facility] TDAP 2010-03-01 00:00:00 Completed TDAP 2010-03-01 00:00:00 Completed TDAP 2010-03-01 00:00:00 Completed TDAP 2010-03-01 00:00:00 Completed [facility] TDAP 2010-03-01 00:00:00 Completed [facility] TDAP 2010-03-01 00:00:00 Completed [facility] TDAP 2010-03-01 00:00:00 Completed [facility] TDAP 2010-03-01 00:00:00 Completed [facility] TDAP 2010-03-01 00:00:00 Completed [facility] TDAP 2010-03-01 00:00:00 Completed [facility] TDAP 2010-03-01 00:00:00 Completed [facility] TDAP 2010-03-01 00:00:00 Completed [facility] TDAP 2010-03-01 00:00:00 Completed [facility] Pneumococcal Polysaccharide, PPSV23 (PNEUMOVAX) 2006-03-08 00:00:00 Completed [facility] Pneumococcal Polysaccharide, PPSV23 (PNEUMOVAX) 2006-03-08 00:00:00 Completed [facility] Pneumococcal Polysaccharide, PPSV23 (PNEUMOVAX) 2006-03-08 00:00:00 Completed [facility] Pneumococcal Polysaccharide, PPSV23 (PNEUMOVAX) 2006-03-08 00:00:00 Completed [facility] Pneumococcal Polysaccharide, PPSV23 (PNEUMOVAX) 2006-03-08 00:00:00 Completed [facility] Pneumococcal Polysaccharide, PPSV23 (PNEUMOVAX) 2006-03-08 00:00:00 Completed [facility] Pneumococcal Polysaccharide, PPSV23 (PNEUMOVAX) 2006-03-08 00:00:00 Completed [facility] Pneumococcal Polysaccharide, PPSV23 (PNEUMOVAX) 2006-03-08 00:00:00 Completed [facility] Pneumococcal Polysaccharide, PPSV23 (PNEUMOVAX) 2006-03-08 00:00:00 Completed [facility] Pneumococcal Polysaccharide, PPSV23 (PNEUMOVAX) 2006-03-08 00:00:00 Completed [facility] Pneumococcal Polysaccharide, PPSV23 (PNEUMOVAX) 2006-03-08 00:00:00 Completed [facility] Pneumococcal Polysaccharide, PPSV23 (PNEUMOVAX) 2006-03-08 00:00:00 Completed [facility] Pneumococcal Polysaccharide, PPSV23 (PNEUMOVAX) 2006-03-08 00:00:00 Completed [facility] Pneumococcal Polysaccharide, PPSV23 (PNEUMOVAX) 2006-03-08 00:00:00 Completed [facility] Pneumococcal Polysaccharide, PPSV23 (PNEUMOVAX) 2006-03-08 00:00:00 Completed [facility] Pneumococcal Polysaccharide, PPSV23 (PNEUMOVAX) 2006-03-08 00:00:00 Completed [facility] Pneumococcal Polysaccharide, PPSV23 (PNEUMOVAX) 2006-03-08 00:00:00 Completed [facility] Pneumococcal Polysaccharide, PPSV23 (PNEUMOVAX) 2006-03-08 00:00:00 Completed [facility] Pneumococcal Polysaccharide, PPSV23 (PNEUMOVAX) 2006-03-08 00:00:00 Completed [facility] Pneumococcal Polysaccharide, PPSV23 (PNEUMOVAX) 2006-03-08 00:00:00 Completed [facility] Pneumococcal Polysaccharide, PPSV23 (PNEUMOVAX) 2006-03-08 00:00:00 Completed Pneumococcal Polysaccharide, PPSV23 (PNEUMOVAX) 2006-03-08 00:00:00 Completed Pneumococcal Polysaccharide, PPSV23 (PNEUMOVAX) 2006-03-08 00:00:00 Completed Pneumococcal Polysaccharide, PPSV23 (PNEUMOVAX) 2006-03-08 00:00:00 Completed [facility] Pneumococcal Polysaccharide, PPSV23 (PNEUMOVAX) 2006-03-08 00:00:00 Completed [facility] Pneumococcal Polysaccharide, PPSV23 (PNEUMOVAX) 2006-03-08 00:00:00 Completed [facility] Pneumococcal Polysaccharide, PPSV23 (PNEUMOVAX) 2006-03-08 00:00:00 Completed [facility] Pneumococcal Polysaccharide, PPSV23 (PNEUMOVAX) 2006-03-08 00:00:00 Completed [facility] Pneumococcal Polysaccharide, PPSV23 (PNEUMOVAX) 2006-03-08 00:00:00 Completed [facility] Pneumococcal Polysaccharide, PPSV23 (PNEUMOVAX) 2006-03-08 00:00:00 Completed [facility] Pneumococcal Polysaccharide, PPSV23 (PNEUMOVAX) 2006-03-08 00:00:00 Completed [facility] Pneumococcal Polysaccharide, PPSV23 (PNEUMOVAX) 2006-03-08 00:00:00 Completed [facility] Pneumococcal Polysaccharide, PPSV23 (PNEUMOVAX) 2006-03-08 00:00:00 Completed [facility] Zoster(Zostavax)( [facility]) 2002-03-01 00:00:00 Completed [facility] Zoster(Zostavax)( [facility]) 2002-03-01 00:00:00 Completed [facility] Zoster(Zostavax)([facility]) 2002-03-01 00:00:00 Completed [facility] Zoster(Zostavax)([facility]) 2002-03-01 00:00:00 Completed [facility] Zoster(Zostavax)([facility]) 2002-03-01 00:00:00 Completed [facility] Zoster(Zostavax)([facility]) 2002-03-01 00:00:00 Completed [facility] Zoster(Zostavax)([facility]) 2002-03-01 00:00:00 Completed [facility] Zoster(Zostavax)([facility]) 2002-03-01 00:00:00 Completed [facility] Zoster(Zostavax)([facility]) 2002-03-01 00:00:00 Completed [facility] Zoster(Zostavax)([facility]) 2002-03-01 00:00:00 Completed [facility] Zoster(Zostavax)([facility]) 2002-03-01 00:00:00 Completed [facility] Zoster(Zostavax)([facility]) 2002-03-01 00:00:00 Completed [facility] Zoster(Zostavax)([facility]) 2002-03-01 00:00:00 Completed [facility] Zoster(Zostavax)([facility]) 2002-03-01 00:00:00 Completed [facility] Zoster(Zostavax)([facility]) 2002-03-01 00:00:00 Completed [facility] Zoster(Zostavax)([facility]) 2002-03-01 00:00:00 Completed [facility] Zoster(Zostavax)([facility]) 2002-03-01 00:00:00 Completed [facility] Zoster(Zostavax)([facility]) 2002-03-01 00:00:00 Completed [facility] Zoster(Zostavax)([facility]) 2002-03-01 00:00:00 Completed [facility] Zoster(Zostavax)([facility]) 2002-03-01 00:00:00 Completed [facility] Zoster(Zostavax)([facility]) 2002-03-01 00:00:00 Completed Zoster(Zostavax)([facility]) 2002-03-01 00:00:00 Completed Zoster(Zostavax)([facility]) 2002-03-01 00:00:00 Completed Zoster(Zostavax)([facility]) 2002-03-01 00:00:00 Completed [facility] Zoster(Zostavax)([facility]) 2002-03-01 00:00:00 Completed [facility] Zoster(Zostavax)([facility]) 2002-03-01 00:00:00 Completed [facility] Zoster(Zostavax)([facility]) 2002-03-01 00:00:00 Completed [facility] Zoster(Zostavax)([facility]) 2002-03-01 00:00:00 Completed [facility] Zoster(Zostavax)([facility]) 2002-03-01 00:00:00 Completed [facility] Zoster(Zostavax)([facility]) 2002-03-01 00:00:00 Completed [facility] Zoster(Zostavax)([facility]) 2002-03-01 00:00:00 Completed [facility] Zoster(Zostavax)([facility]) 2002-03-01 00:00:00 Completed [facility] Zoster(Zostavax)([facility]) 2002-03-01 00:00:00 Completed [facility] Influenza Virus Vaccine Unknown Completed [facility] Pneumococcal Polysaccharide, PPSV23 (PNEUMOVAX) Unknown Completed [facility] Pneumococcal 13 Conjugate, PCV13 (Prevnar 13) Unknown Completed [facility] Influenza High Dose Unknown Completed [facility] Zoster(Zostavax)([facility]) Unknown Completed [facility] TDAP Unknown Completed [facility] Zoster Vaccine Recombinant Unknown Completed [facility] Influenza High Dose Quad Unknown Completed [facility] SARS-COV-2 COVID-19 MODERNA 12+ YRS VACCINE Unknown Completed [facility] SARS-COV-2 COVID-19 MODERNA 0.25ML BOOSTER VACCINE Unknown Completed [facility] Remdesivir Unknown Completed [facility] Remdesivir Unknown Completed [facility] Influenza Virus Vaccine Unknown Completed [facility] Pneumococcal Polysaccharide, PPSV23 (PNEUMOVAX) Unknown Completed [facility] Pneumococcal 13 Conjugate, PCV13 (Prevnar 13) Unknown Completed [facility] Influenza High Dose Unknown Completed [facility] Zoster(Zostavax)( ingles) Unknown Completed [facility] TDAP Unknown Completed [facility] Zoster Vaccine Recombinant Unknown Completed [facility] Influenza High Dose Quad Unknown Completed [facility] SARS-COV-2 COVID-19 MODERNA 12+ YRS VACCINE Unknown Completed [facility] SARS-COV-2 COVID-19 MODERNA 0.25ML BOOSTER VACCINE Unknown Completed [facility] Remdesivir Unknown Completed [facility] Remdesivir Unknown Completed [facility] Influenza High Dose Unknown Completed [facility] Zoster(Zostavax)( ingles) Unknown Completed [facility] TDAP Unknown Completed [facility] Zoster Vaccine Recombinant Unknown Completed [facility] Influenza High Dose Quad Unknown Completed [facility] SARS-COV-2 COVID-19 MODERNA 12+ YRS VACCINE Unknown Completed [facility] SARS-COV-2 COVID-19 MODERNA 0.25ML BOOSTER VACCINE Unknown Completed [facility] Remdesivir Unknown Completed [facility] Remdesivir Unknown Completed [facility] Influenza Virus Vaccine Unknown Completed [facility] Pneumococcal Polysaccharide, PPSV23 (PNEUMOVAX) Unknown Completed [facility] Pneumococcal 13 Conjugate, PCV13 (Prevnar 13) Unknown Completed [facility] Influenza High Dose Unknown Completed [facility] Zoster(Zostavax)( ingles) Unknown Completed [facility] TDAP Unknown Completed [facility] Zoster Vaccine Recombinant Unknown Completed [facility] Influenza High Dose Quad Unknown Completed [facility] SARS-COV-2 COVID-19 MODERNA 12+ YRS VACCINE Unknown Completed [facility] SARS-COV-2 COVID-19 MODERNA 0.25ML BOOSTER VACCINE Unknown Completed [facility] Remdesivir Unknown Completed [facility] Remdesivir Unknown Completed [facility] Influenza Virus Vaccine,quad Im,preserve Free 65+ (FLUAD) Unknown Completed [facility] Influenza Virus Vaccine,quad Im,preserve Free 65+ (FLUAD) Unknown Completed [facility] Influenza Virus Vaccine Unknown Completed [facility] Pneumococcal Polysaccharide, PPSV23 (PNEUMOVAX) Unknown Completed [facility] Pneumococcal 13 Conjugate, PCV13 (Prevnar 13) Unknown Completed [facility] Influenza High Dose Unknown Completed [facility] Zoster(Zostavax)([facility]) Unknown Completed [facility] TDAP Unknown Completed [facility] Zoster Vaccine Recombinant Unknown Completed [facility] Influenza High Dose Quad Unknown Completed [facility] SARS-COV-2 COVID-19 MODERNA 12+ YRS VACCINE Unknown Completed [facility] SARS-COV-2 COVID-19 MODERNA 0.25ML BOOSTER VACCINE Unknown Completed [facility] Remdesivir Unknown Completed [facility] Remdesivir Unknown Completed [facility] Influenza Virus Vaccine Unknown Completed [facility] Pneumococcal Polysaccharide, PPSV23 (PNEUMOVAX) Unknown Completed [facility] Pneumococcal 13 Conjugate, PCV13 (Prevnar 13) Unknown Completed [facility] Zoster(Zostavax)([facility]) Unknown Completed [facility] SARS-COV-2 COVID-19 MODERNA 0.25ML BOOSTER VACCINE Unknown Completed [facility] Remdesivir Unknown Completed [facility] Influenza Virus Vaccine,quad Im,preserve Free 65+ (FLUAD) Unknown Completed [facility] Influenza Virus Vaccine Unknown Completed [facility] Pneumococcal Polysaccharide, PPSV23 (PNEUMOVAX) Unknown Completed [facility] Pneumococcal 13 Conjugate, PCV13 (Prevnar 13) Unknown Completed [facility] Influenza High Dose Unknown Completed [facility] Zoster(Zostavax)(Sh ing[facility]) Unknown Completed [facility] TDAP Unknown Completed [facility] Zoster Vaccine Recombinant Unknown Completed [facility] Influenza High Dose Quad Unknown Completed [facility] SARS-COV-2 COVID-19 MODERNA 12+ YRS VACCINE Unknown Completed [facility] SARS-COV-2 COVID-19 MODERNA 0.25ML BOOSTER VACCINE Unknown Completed [facility] Remdesivir Unknown Completed [facility] Remdesivir Unknown Completed [facility] Influenza Virus Vaccine,quad Im,preserve Free 65+ (FLUAD) Unknown Completed [facility] Influenza Virus Vaccine Unknown Completed [facility] Pneumococcal Polysaccharide, PPSV23 (PNEUMOVAX) Unknown Completed [facility] Pneumococcal 13 Conjugate, PCV13 (Prevnar 13) Unknown Completed [facility] Influenza Virus Vaccine Unknown Completed [facility] Pneumococcal Polysaccharide, PPSV23 (PNEUMOVAX) Unknown Completed [facility] Pneumococcal 13 Conjugate, PCV13 (Prevnar 13) Unknown Completed [facility] Influenza High Dose Unknown Completed [facility] Zoster(Zostavax)(Sh ing[facility]) Unknown Completed [facility] TDAP Unknown Completed [facility] Zoster Vaccine Recombinant Unknown Completed [facility] Influenza High Dose Quad Unknown Completed [facility] SARS-COV-2 COVID-19 MODERNA 12+ YRS VACCINE Unknown Completed [facility] SARS-COV-2 COVID-19 MODERNA 0.25ML BOOSTER VACCINE Unknown Completed [facility] Remdesivir Unknown Completed [facility] Remdesivir Unknown Completed [facility] Influenza Virus Vaccine,quad Im,preserve Free 65+ (FLUAD) Unknown Completed [facility] Influenza High Dose Unknown Completed [facility] Zoster(Zostavax)([facility] ing[facility]) Unknown Completed [facility] TDAP Unknown Completed [facility] Zoster Vaccine Recombinant Unknown Completed [facility] Influenza High Dose Quad Unknown Completed [facility] SARS-COV-2 COVID-19 MODERNA 12+ YRS VACCINE Unknown Completed [facility] SARS-COV-2 COVID-19 MODERNA 0.25ML BOOSTER VACCINE Unknown Completed [facility] Remdesivir Unknown Completed [facility] Remdesivir Unknown Completed [facility] Influenza Virus Vaccine,quad Im,preserve Free 65+ (FLUAD) Unknown Completed [facility] Influenza Virus Vaccine Unknown Completed [facility] Pneumococcal Polysaccharide, PPSV23 (PNEUMOVAX) Unknown Completed [facility] Pneumococcal 13 Conjugate, PCV13 (Prevnar 13) Unknown Completed [facility] Influenza Virus Vaccine Unknown Completed [facility] Pneumococcal Polysaccharide, PPSV23 (PNEUMOVAX) Unknown Completed [facility] Pneumococcal 13 Conjugate, PCV13 (Prevnar 13) Unknown Completed [facility] Influenza High Dose Unknown Completed [facility] Zoster(Zostavax)([facility] [facility]) Unknown Completed [facility] TDAP Unknown Completed [facility] Zoster Vaccine Recombinant Unknown Completed [facility] Influenza High Dose Quad Unknown Completed [facility] SARS-COV-2 COVID-19 MODERNA 12+ YRS VACCINE Unknown Completed [facility] SARS-COV-2 COVID-19 MODERNA 0.25ML BOOSTER VACCINE Unknown Completed [facility] Remdesivir Unknown Completed [facility] Remdesivir Unknown Completed [facility] Influenza Virus Vaccine,quad Im,preserve Free 65+ (FLUAD) Unknown Completed [facility] Influenza Virus Vaccine Unknown Completed [facility] Pneumococcal Polysaccharide, PPSV23 (PNEUMOVAX) Unknown Completed [facility] Pneumococcal 13 Conjugate, PCV13 (Prevnar 13) Unknown Completed [facility] Influenza High Dose Unknown Completed [facility] Zoster(Zostavax)([place]) Unknown Completed [facility] TDAP Unknown Completed [facility] Zoster Vaccine Recombinant Unknown Completed [facility] Influenza High Dose Quad Unknown Completed [facility] SARS-COV-2 COVID-19 MODERNA 12+ YRS VACCINE Unknown Completed [facility] SARS-COV-2 COVID-19 MODERNA 0.25ML BOOSTER VACCINE Unknown Completed [facility] Remdesivir Unknown Completed [facility] Remdesivir Unknown Completed [facility] Influenza Virus Vaccine,quad Im,preserve Free 65+ (FLUAD) Unknown Completed [facility] Influenza Virus Vaccine Unknown Completed [facility] Pneumococcal Polysaccharide, PPSV23 (PNEUMOVAX) Unknown Completed [facility] Pneumococcal 13 Conjugate, PCV13 (Prevnar 13) Unknown Completed [facility] Influenza High Dose Unknown Completed [facility] Zoster(Zostavax)([place]) Unknown Completed [facility] TDAP Unknown Completed [facility] Zoster Vaccine Recombinant Unknown Completed [facility] Influenza High Dose Quad Unknown Completed [facility] SARS-COV-2 COVID-19 MODERNA 12+ YRS VACCINE Unknown Completed [facility] SARS-COV-2 COVID-19 MODERNA 0.25ML BOOSTER VACCINE Unknown Completed [facility] Remdesivir Unknown Completed [facility] Remdesivir Unknown Completed [facility] Influenza Virus Vaccine,quad Im,preserve Free 65+ (FLUAD) Unknown Completed [facility] Influenza Virus Vaccine Unknown Completed [facility] Pneumococcal Polysaccharide, PPSV23 (PNEUMOVAX) Unknown Completed [facility] Pneumococcal 13 Conjugate, PCV13 (Prevnar 13) Unknown Completed [facility] Influenza High Dose Unknown Completed [facility] Zoster(Zostavax)(Sh ing[facility]) Unknown Completed [facility] TDAP Unknown Completed [facility] Zoster Vaccine Recombinant Unknown Completed [facility] Influenza High Dose Quad Unknown Completed [facility] SARS-COV-2 COVID-19 MODERNA 12+ YRS VACCINE Unknown Completed [facility] SARS-COV-2 COVID-19 MODERNA 0.25ML BOOSTER VACCINE Unknown Completed [facility] Remdesivir Unknown Completed [facility] Remdesivir Unknown Completed [facility] Influenza Virus Vaccine,quad Im,preserve Free 65+ (FLUAD) Unknown Completed [facility] Influenza Virus Vaccine Unknown Completed [facility] Pneumococcal Polysaccharide, PPSV23 (PNEUMOVAX) Unknown Completed [facility] Pneumococcal 13 Conjugate, PCV13 (Prevnar 13) Unknown Completed [facility] Influenza High Dose Unknown Completed [facility] Zoster(Zostavax)(Sh ingles) Unknown Completed [facility] TDAP Unknown Completed [facility] Zoster Vaccine Recombinant Unknown Completed [facility] Influenza High Dose Quad Unknown Completed [facility] SARS-COV-2 COVID-19 MODERNA 12+ YRS VACCINE Unknown Completed [facility] SARS-COV-2 COVID-19 MODERNA 0.25ML BOOSTER VACCINE Unknown Completed [facility] Remdesivir Unknown Completed [facility] Remdesivir Unknown Completed [facility] Influenza Virus Vaccine,quad Im,preserve Free 65+ (FLUAD) Unknown Completed [facility] Influenza Virus Vaccine Unknown Completed [facility] Pneumococcal Polysaccharide, PPSV23 (PNEUMOVAX) Unknown Completed [facility] Pneumococcal 13 Conjugate, PCV13 (Prevnar 13) Unknown Completed [facility] Influenza High Dose Unknown Completed [facility] Zoster(Zostavax)(Sh ingles) Unknown Completed [facility] TDAP Unknown Completed [facility] Zoster Vaccine Recombinant Unknown Completed [facility] Influenza High Dose Quad Unknown Completed [facility] SARS-COV-2 COVID-19 MODERNA 12+ YRS VACCINE Unknown Completed [facility] SARS-COV-2 COVID-19 MODERNA 0.25ML BOOSTER VACCINE Unknown Completed [facility] Remdesivir Unknown Completed [facility] Remdesivir Unknown Completed [facility] Influenza Virus Vaccine,quad Im,preserve Free 65+ (FLUAD) Unknown Completed [facility] Influenza Virus Vaccine Unknown Completed [facility] Pneumococcal Polysaccharide, PPSV23 (PNEUMOVAX) Unknown Completed [facility] Pneumococcal 13 Conjugate, PCV13 (Prevnar 13) Unknown Completed [facility] Zoster(Zostavax)( ingles) Unknown Completed [facility] SARS-COV-2 COVID-19 MODERNA 0.25ML BOOSTER VACCINE Unknown Completed [facility] Remdesivir Unknown Completed [facility] Influenza Virus Vaccine,quad Im,preserve Free 65+ (FLUAD) Unknown Completed [facility] Influenza Virus Vaccine Unknown Completed [facility] Pneumococcal Polysaccharide, PPSV23 (PNEUMOVAX) Unknown Completed [facility] Pneumococcal 13 Conjugate, PCV13 (Prevnar 13) Unknown Completed [facility] Zoster(Zostavax)(Sh ing[facility]) Unknown Completed [facility] SARS-COV-2 COVID-19 MODERNA 0.25ML BOOSTER VACCINE Unknown Completed [facility] Remdesivir Unknown Completed [facility] Influenza Virus Vaccine,quad Im,preserve Free 65+ (FLUAD) Unknown Completed [facility] Influenza High Dose Unknown Completed [facility] TDAP Unknown Completed [facility] Zoster Vaccine Recombinant Unknown Completed [facility] Influenza High Dose Quad Unknown Completed [facility] SARS-COV-2 COVID-19 MODERNA 12+ YRS VACCINE Unknown Completed [facility] Remdesivir Unknown Completed [facility] Influenza Virus Vaccine Unknown Completed [facility] Pneumococcal Polysaccharide, PPSV23 (PNEUMOVAX) Unknown Completed [facility] Pneumococcal 13 Conjugate, PCV13 (Prevnar 13) Unknown Completed [facility] Influenza High Dose Unknown Completed [facility] Zoster(Zostavax)(Sh ing[facility]) Unknown Completed [facility] TDAP Unknown Completed [facility] Zoster Vaccine Recombinant Unknown Completed [facility] Influenza High Dose Quad Unknown Completed [facility] SARS-COV-2 COVID-19 MODERNA 12+ YRS VACCINE Unknown Completed [facility] SARS-COV-2 COVID-19 MODERNA 0.25ML BOOSTER VACCINE Unknown Completed [facility] Remdesivir Unknown Completed [facility] Remdesivir Unknown Completed [facility] Influenza Virus Vaccine,quad Im,preserve Free 65+ (FLUAD) Unknown Completed [facility] Influenza High Dose Unknown Completed [facility] TDAP Unknown Completed [facility] Zoster Vaccine Recombinant Unknown Completed [facility] Influenza High Dose Quad Unknown Completed [facility] SARS-COV-2 COVID-19 MODERNA 12+ YRS VACCINE Unknown Completed [facility] Remdesivir Unknown Completed [facility] Influenza Virus Vaccine Unknown Completed [facility] Pneumococcal Polysaccharide, PPSV23 (PNEUMOVAX) Unknown Completed [facility] Pneumococcal 13 Conjugate, PCV13 (Prevnar 13) Unknown Completed [facility] Influenza High Dose Unknown Completed [facility] Zoster(Zostavax)(Sh ing[facility]) Unknown Completed [facility] TDAP Unknown Completed [facility] Zoster Vaccine Recombinant Unknown Completed [facility] Influenza High Dose Quad Unknown Completed [facility] SARS-COV-2 COVID-19 MODERNA 12+ YRS VACCINE Unknown Completed [facility] SARS-COV-2 COVID-19 MODERNA 0.25ML BOOSTER VACCINE Unknown Completed [facility] Remdesivir Unknown Completed [facility] Remdesivir Unknown Completed [facility] Influenza Virus Vaccine,quad Im,preserve Free 65+ (FLUAD) Unknown Completed [facility] Influenza Virus Vaccine Unknown Completed [facility] Pneumococcal Polysaccharide, PPSV23 (PNEUMOVAX) Unknown Completed [facility] Pneumococcal 13 Conjugate, PCV13 (Prevnar 13) Unknown Completed [facility] Influenza High Dose Unknown Completed [facility] Zoster(Zostavax)( inghector) Unknown Completed [facility] TDAP Unknown Completed [facility] Zoster Vaccine Recombinant Unknown Completed [facility] Influenza High Dose Quad Unknown Completed [facility] SARS-COV-2 COVID-19 MODERNA 12+ YRS VACCINE Unknown Completed [facility] SARS-COV-2 COVID-19 MODERNA 0.25ML BOOSTER VACCINE Unknown Completed [facility] Remdesivir Unknown Completed [facility] Remdesivir Unknown Completed [facility] Influenza Virus Vaccine,quad Im,preserve Free 65+ (FLUAD) Unknown Completed [facility] Influenza Virus Vaccine Unknown Completed [facility] Pneumococcal Polysaccharide, PPSV23 (PNEUMOVAX) Unknown Completed [facility] Pneumococcal 13 Conjugate, PCV13 (Prevnar 13) Unknown Completed [facility] Influenza High Dose Unknown Completed [facility] Zoster(Zostavax)([place]) Unknown Completed [facility] TDAP Unknown Completed [facility] Zoster Vaccine Recombinant Unknown Completed [facility] Influenza High Dose Quad Unknown Completed [facility] SARS-COV-2 COVID-19 MODERNA 12+ YRS VACCINE Unknown Completed [facility] SARS-COV-2 COVID-19 MODERNA 0.25ML BOOSTER VACCINE Unknown Completed [facility] Remdesivir Unknown Completed [facility] Remdesivir Unknown Completed [facility] Influenza Virus Vaccine,quad Im,preserve Free 65+ (FLUAD) Unknown Completed [facility] Influenza Virus Vaccine Unknown Completed [facility] Pneumococcal Polysaccharide, PPSV23 (PNEUMOVAX) Unknown Completed [facility] Pneumococcal 13 Conjugate, PCV13 (Prevnar 13) Unknown Completed [facility] Zoster(Zostavax)(Sh ing[facility]) Unknown Completed [facility] SARS-COV-2 COVID-19 MODERNA 0.25ML BOOSTER VACCINE Unknown Completed [facility] Remdesivir Unknown Completed [facility] Influenza Virus Vaccine,quad Im,preserve Free 65+ (FLUAD) Unknown Completed [facility] Influenza High Dose Unknown Completed [facility] TDAP Unknown Completed [facility] Zoster Vaccine Recombinant Unknown Completed [facility] Influenza High Dose Quad Unknown Completed [facility] SARS-COV-2 COVID-19 MODERNA 12+ YRS VACCINE Unknown Completed [facility] Remdesivir Unknown Completed [facility] Influenza Virus Vaccine Unknown Completed [facility] Pneumococcal Polysaccharide, PPSV23 (PNEUMOVAX) Unknown Completed [facility] Pneumococcal 13 Conjugate, PCV13 (Prevnar 13) Unknown Completed [facility] Influenza High Dose Unknown Completed [facility] Zoster(Zostavax)(Sh ing[facility]) Unknown Completed [facility] TDAP Unknown Completed [facility] Zoster Vaccine Recombinant Unknown Completed [facility] Influenza High Dose Quad Unknown Completed [facility] SARS-COV-2 COVID-19 MODERNA 12+ YRS VACCINE Unknown Completed [facility] SARS-COV-2 COVID-19 MODERNA 0.25ML BOOSTER VACCINE Unknown Completed [facility] Remdesivir Unknown Completed [facility] Remdesivir Unknown Completed [facility] Influenza Virus Vaccine,quad Im,preserve Free 65+ (FLUAD) Unknown Completed [facility] Influenza Virus Vaccine Unknown Completed [facility] Pneumococcal Polysaccharide, PPSV23 (PNEUMOVAX) Unknown Completed [facility] Pneumococcal 13 Conjugate, PCV13 (Prevnar 13) Unknown Completed [facility] Influenza High Dose Unknown Completed [facility] Zoster(Zostavax)(Sh ing[facility]) Unknown Completed [facility] TDAP Unknown Completed [facility] Zoster Vaccine Recombinant Unknown Completed [facility] Influenza High Dose Quad Unknown Completed [facility] SARS-COV-2 COVID-19 MODERNA 12+ YRS VACCINE Unknown Completed [facility] SARS-COV-2 COVID-19 MODERNA 0.25ML BOOSTER VACCINE Unknown Completed [facility] Remdesivir Unknown Completed [facility] Remdesivir Unknown Completed [facility] Influenza Virus Vaccine,quad Im,preserve Free 65+ (FLUAD) Unknown Completed [facility] Influenza Virus Vaccine Unknown Completed [facility] Pneumococcal Polysaccharide, PPSV23 (PNEUMOVAX) Unknown Completed [facility] Pneumococcal 13 Conjugate, PCV13 (Prevnar 13) Unknown Completed [facility] Influenza High Dose Unknown Completed [facility] Zoster(Zostavax)( inghector) Unknown Completed [facility] TDAP Unknown Completed [facility] [facility] Zoster Vaccine Recombinant Unknown Completed [facility] Influenza High Dose Quad Unknown Completed [facility] SARS-COV-2 COVID-19 MODERNA 12+ YRS VACCINE Unknown Completed [facility] SARS-COV-2 COVID-19 MODERNA 0.25ML BOOSTER VACCINE Unknown Completed [facility] Remdesivir Unknown Completed [facility] Remdesivir Unknown Completed [facility] Influenza Virus Vaccine,quad Im,preserve Free 65+ (FLUAD) Unknown Completed [facility] Influenza Virus Vaccine Unknown Completed [facility] Pneumococcal Polysaccharide, PPSV23 (PNEUMOVAX) Unknown Completed [facility] Pneumococcal 13 Conjugate, PCV13 (Prevnar 13) Unknown Completed [facility] Influenza High Dose Unknown Completed [facility] Zoster(Zostavax)(Minor haas) Unknown Completed [facility] TDAP Unknown Completed [facility] Zoster Vaccine Recombinant Unknown Completed [facility] Influenza High Dose Quad Unknown Completed [facility] SARS-COV-2 COVID-19 MODERNA 12+ YRS VACCINE Unknown Completed [facility] SARS-COV-2 COVID-19 MODERNA 0.25ML BOOSTER VACCINE Unknown Completed [facility] Remdesivir Unknown Completed [facility] Remdesivir Unknown Completed [facility] Influenza Virus Vaccine,quad Im,preserve Free 65+ (FLUAD) Unknown Completed [facility] Influenza Virus Vaccine Unknown Completed [facility] Pneumococcal Polysaccharide, PPSV23 (PNEUMOVAX) Unknown Completed [facility] Pneumococcal 13 Conjugate, PCV13 (Prevnar 13) Unknown Completed [facility] Zoster(Zostavax)(Sh ingles) Unknown Completed [facility] SARS-COV-2 COVID-19 MODERNA 0.25ML BOOSTER VACCINE Unknown Completed [facility] Remdesivir Unknown Completed [facility] Influenza Virus Vaccine,quad Im,preserve Free 65+ (FLUAD) Unknown Completed [facility] Influenza High Dose Unknown Completed [facility] TDAP Unknown Completed [facility] Zoster Vaccine Recombinant Unknown Completed [facility] Influenza High Dose Quad Unknown Completed [facility] SARS-COV-2 COVID-19 MODERNA 12+ YRS VACCINE Unknown Completed [facility] Remdesivir Unknown Completed [facility] Influenza Virus Vaccine Unknown Completed [facility] Pneumococcal Polysaccharide, PPSV23 (PNEUMOVAX) Unknown Completed [facility] Pneumococcal 13 Conjugate, PCV13 (Prevnar 13) Unknown Completed [facility] Influenza High Dose Unknown Completed [facility] Zoster(Zostavax)(Sh ingles) Unknown Completed [facility] TDAP Unknown Completed [facility] Zoster Vaccine Recombinant Unknown Completed [facility] Influenza High Dose Quad Unknown Completed [facility] SARS-COV-2 COVID-19 MODERNA 12+ YRS VACCINE Unknown Completed [facility] SARS-COV-2 COVID-19 MODERNA 0.25ML BOOSTER VACCINE Unknown Completed [facility] Remdesivir Unknown Completed [facility] Remdesivir Unknown Completed [facility] Influenza Virus Vaccine,quad Im,preserve Free 65+ (FLUAD) Unknown Completed [facility] Influenza Virus Vaccine Unknown Completed [facility] Pneumococcal Polysaccharide, PPSV23 (PNEUMOVAX) Unknown Completed [facility] Pneumococcal 13 Conjugate, PCV13 (Prevnar 13) Unknown Completed [facility] Zoster(Zostavax)(Sh ingles) Unknown Completed [facility] SARS-COV-2 COVID-19 MODERNA 0.25ML BOOSTER VACCINE Unknown Completed [facility] Remdesivir Unknown Completed [facility] Influenza Virus Vaccine,quad Im,preserve Free 65+ (FLUAD) Unknown Completed [facility] Influenza High Dose Unknown Completed [facility] TDAP Unknown Completed [facility] Zoster Vaccine Recombinant Unknown Completed [facility] Influenza High Dose Quad Unknown Completed [facility] SARS-COV-2 COVID-19 MODERNA 12+ YRS VACCINE Unknown Completed [facility] Remdesivir Unknown Completed [facility] Influenza Virus Vaccine Unknown Completed [facility] Pneumococcal Polysaccharide, PPSV23 (PNEUMOVAX) Unknown Completed [facility] Pneumococcal 13 Conjugate, PCV13 (Prevnar 13) Unknown Completed [facility] Zoster(Zostavax)( ingles) Unknown Completed [facility] SARS-COV-2 COVID-19 MODERNA 0.25ML BOOSTER VACCINE Unknown Completed [facility] Remdesivir Unknown Completed [facility] Influenza Virus Vaccine,quad Im,preserve Free 65+ (FLUAD) Unknown Completed [facility] Influenza High Dose Unknown Completed [facility] TDAP Unknown Completed [facility] Zoster Vaccine Recombinant Unknown Completed [facility] Influenza High Dose Quad Unknown Completed [facility] SARS-COV-2 COVID-19 MODERNA 12+ YRS VACCINE Unknown Completed [facility] Remdesivir Unknown Completed [facility] Influenza Virus Vaccine Unknown Completed [facility] Pneumococcal Polysaccharide, PPSV23 (PNEUMOVAX) Unknown Completed [facility] Pneumococcal 13 Conjugate, PCV13 (Prevnar 13) Unknown Completed [facility] Zoster(Zostavax)( ingles) Unknown Completed [facility] SARS-COV-2 COVID-19 MODERNA 0.25ML BOOSTER VACCINE Unknown Completed [facility] Remdesivir Unknown Completed [facility] Influenza Virus Vaccine,quad Im,preserve Free 65+ (FLUAD) Unknown Completed [facility] Influenza High Dose Unknown Completed [facility] TDAP Unknown Completed [facility] Zoster Vaccine Recombinant Unknown Completed [facility] Influenza High Dose Quad Unknown Completed [facility] SARS-COV-2 COVID-19 MODERNA 12+ YRS VACCINE Unknown Completed [facility] Remdesivir Unknown Completed [facility] Influenza Virus Vaccine Unknown Completed [facility] Pneumococcal Polysaccharide, PPSV23 (PNEUMOVAX) Unknown Completed [facility] Pneumococcal 13 Conjugate, PCV13 (Prevnar 13) Unknown Completed [facility] Influenza High Dose Unknown Completed [facility] Zoster(Zostavax)( ingles) Unknown Completed [facility] TDAP Unknown Completed [facility] Zoster Vaccine Recombinant Unknown Completed [facility] Influenza High Dose Quad Unknown Completed [facility] SARS-COV-2 COVID-19 MODERNA 12+ YRS VACCINE Unknown Completed [facility] SARS-COV-2 COVID-19 MODERNA 0.25ML BOOSTER VACCINE Unknown Completed [facility] Remdesivir Unknown Completed [facility] Remdesivir Unknown Completed [facility] Influenza Virus Vaccine,quad Im,preserve Free 65+ (FLUAD) Unknown Completed [facility] Influenza Virus Vaccine Unknown Completed [facility] Pneumococcal Polysaccharide, PPSV23 (PNEUMOVAX) Unknown Completed [facility] Pneumococcal 13 Conjugate, PCV13 (Prevnar 13) Unknown Completed [facility] Influenza High Dose Unknown Completed [facility] Zoster(Zostavax)(Sh ingles) Unknown Completed [facility] TDAP Unknown Completed [facility] Zoster Vaccine Recombinant Unknown Completed [facility] Influenza High Dose Quad Unknown Completed [facility] SARS-COV-2 COVID-19 MODERNA 12+ YRS VACCINE Unknown Completed [facility] SARS-COV-2 COVID-19 MODERNA 0.25ML BOOSTER VACCINE Unknown Completed [facility] Remdesivir Unknown Completed [facility] Remdesivir Unknown Completed [facility] Influenza Virus Vaccine,quad Im,preserve Free 65+ (FLUAD) Unknown Completed [facility] Influenza Virus Vaccine Unknown Completed [facility] Pneumococcal Polysaccharide, PPSV23 (PNEUMOVAX) Unknown Completed [facility] Pneumococcal 13 Conjugate, PCV13 (Prevnar 13) Unknown Completed [facility] Influenza High Dose Unknown Completed [facility] Zoster(Zostavax)(Sh ingles) Unknown Completed [facility] TDAP Unknown Completed [facility] Zoster Vaccine Recombinant Unknown Completed [facility] Influenza High Dose Quad Unknown Completed [facility] SARS-COV-2 COVID-19 MODERNA 12+ YRS VACCINE Unknown Completed [facility] SARS-COV-2 COVID-19 MODERNA 0.25ML BOOSTER VACCINE Unknown Completed [facility] Remdesivir Unknown Completed [facility] Remdesivir Unknown Completed [facility] Influenza Virus Vaccine,quad Im,preserve Free 65+ (FLUAD) Unknown Completed [facility] Influenza Virus Vaccine Unknown Completed [facility] Pneumococcal Polysaccharide, PPSV23 (PNEUMOVAX) Unknown Completed [facility] Pneumococcal 13 Conjugate, PCV13 (Prevnar 13) Unknown Completed [facility] Influenza High Dose Unknown Completed [facility] Zoster(Zostavax)(Minor haas) Unknown Completed [facility] TDAP Unknown Completed [facility] Zoster Vaccine Recombinant Unknown Completed [facility] Influenza High Dose Quad Unknown Completed [facility] SARS-COV-2 COVID-19 MODERNA 12+ YRS VACCINE Unknown Completed [facility] SARS-COV-2 COVID-19 MODERNA 0.25ML BOOSTER VACCINE Unknown Completed [facility] Remdesivir Unknown Completed [facility] Remdesivir Unknown Completed [facility] Influenza Virus Vaccine,quad Im,preserve Free 65+ (FLUAD) Unknown Completed [facility] Influenza Virus Vaccine Unknown Completed [facility] Pneumococcal Polysaccharide, PPSV23 (PNEUMOVAX) Unknown Completed [facility] Pneumococcal 13 Conjugate, PCV13 (Prevnar 13) Unknown Completed [facility] Influenza High Dose Unknown Completed [facility] Zoster(Zostavax)(Minor haas) Unknown Completed [facility] TDAP Unknown Completed [facility] Zoster Vaccine Recombinant Unknown Completed [facility] Influenza High Dose Quad Unknown Completed [facility] SARS-COV-2 COVID-19 MODERNA 12+ YRS VACCINE Unknown Completed [facility] SARS-COV-2 COVID-19 MODERNA 0.25ML BOOSTER VACCINE Unknown Completed [facility] Remdesivir Unknown Completed [facility] Remdesivir Unknown Completed [facility] Influenza Virus Vaccine,quad Im,preserve Free 65+ (FLUAD) Unknown Completed [facility] Influenza Virus Vaccine Unknown Completed [facility] Pneumococcal Polysaccharide, PPSV23 (PNEUMOVAX) Unknown Completed [facility] Pneumococcal 13 Conjugate, PCV13 (Prevnar 13) Unknown Completed [facility] Influenza High Dose Unknown Completed [facility] Zoster(Zostavax)(Minor haas) Unknown Completed [facility] TDAP Unknown Completed [facility] Zoster Vaccine Recombinant Unknown Completed [facility] Influenza High Dose Quad Unknown Completed [facility] SARS-COV-2 COVID-19 MODERNA 12+ YRS VACCINE Unknown Completed [facility] SARS-COV-2 COVID-19 MODERNA 0.25ML BOOSTER VACCINE Unknown Completed [facility] Remdesivir Unknown Completed [facility] Remdesivir Unknown Completed [facility] Influenza Virus Vaccine,quad Im,preserve Free 65+ (FLUAD) Unknown Completed [facility] Influenza Virus Vaccine Unknown Completed [facility] Pneumococcal Polysaccharide, PPSV23 (PNEUMOVAX) Unknown Completed [facility] Pneumococcal 13 Conjugate, PCV13 (Prevnar 13) Unknown Completed [facility] Influenza High Dose Unknown Completed [facility] Zoster(Zostavax)(Sh ingles) Unknown Completed [facility] TDAP Unknown Completed [facility] Zoster Vaccine Recombinant Unknown Completed [facility] Influenza High Dose Quad Unknown Completed [facility] SARS-COV-2 COVID-19 MODERNA 12+ YRS VACCINE Unknown Completed [facility] SARS-COV-2 COVID-19 MODERNA 0.25ML BOOSTER VACCINE Unknown Completed [facility] Remdesivir Unknown Completed [facility] Remdesivir Unknown Completed [facility] Influenza Virus Vaccine,quad Im,preserve Free 65+ (FLUAD) Unknown Completed [facility] Influenza Virus Vaccine Unknown Completed [facility] Pneumococcal Polysaccharide, PPSV23 (PNEUMOVAX) Unknown Completed [facility] Pneumococcal 13 Conjugate, PCV13 (Prevnar 13) Unknown Completed [facility] Influenza High Dose Unknown Completed [facility] Zoster(Zostavax)(Sh ingles) Unknown Completed [facility] TDAP Unknown Completed [facility] Zoster Vaccine Recombinant Unknown Completed [facility] Influenza High Dose Quad Unknown Completed [facility] SARS-COV-2 COVID-19 MODERNA 12+ YRS VACCINE Unknown Completed [facility] SARS-COV-2 COVID-19 MODERNA 0.25ML BOOSTER VACCINE Unknown Completed [facility] Remdesivir Unknown Completed [facility] Remdesivir Unknown Completed [facility] Influenza Virus Vaccine,quad Im,preserve Free 65+ (FLUAD) Unknown Completed [facility] Influenza Virus Vaccine Unknown Completed [facility] Pneumococcal Polysaccharide, PPSV23 (PNEUMOVAX) Unknown Completed [facility] Pneumococcal 13 Conjugate, PCV13 (Prevnar 13) Unknown Completed [facility] Influenza High Dose Unknown Completed [facility] Zoster(Zostavax)(Minor haas) Unknown Completed [facility] TDAP Unknown Completed [facility] Zoster Vaccine Recombinant Unknown Completed [facility] Influenza High Dose Quad Unknown Completed [facility] SARS-COV-2 COVID-19 MODERNA 12+ YRS VACCINE Unknown Completed [facility] SARS-COV-2 COVID-19 MODERNA 0.25ML BOOSTER VACCINE Unknown Completed [facility] Remdesivir Unknown Completed [facility] Remdesivir Unknown Completed [facility] Influenza Virus Vaccine,quad Im,preserve Free 65+ (FLUAD) Unknown Completed [facility] Influenza Virus Vaccine Unknown Completed [facility] Pneumococcal Polysaccharide, PPSV23 (PNEUMOVAX) Unknown Completed [facility] Pneumococcal 13 Conjugate, PCV13 (Prevnar 13) Unknown Completed [facility] Influenza High Dose Unknown Completed [facility] Zoster(Zostavax)(Minor haas) Unknown Completed [facility] TDAP Unknown Completed [facility] Zoster Vaccine Recombinant Unknown Completed [facility] Influenza High Dose Quad Unknown Completed [facility] SARS-COV-2 COVID-19 MODERNA 12+ YRS VACCINE Unknown Completed [facility] SARS-COV-2 COVID-19 MODERNA 0.25ML BOOSTER VACCINE Unknown Completed [facility] Remdesivir Unknown Completed [facility] Remdesivir Unknown Completed [facility] Influenza Virus Vaccine,quad Im,preserve Free 65+ (FLUAD) Unknown Completed [facility] Influenza Virus Vaccine Unknown Completed [facility] Pneumococcal Polysaccharide, PPSV23 (PNEUMOVAX) Unknown Completed [facility] Pneumococcal 13 Conjugate, PCV13 (Prevnar 13) Unknown Completed [facility] Influenza High Dose Unknown Completed [facility] Zoster(Zostavax)(Minor haas) Unknown Completed [facility] TDAP Unknown Completed [facility] Zoster Vaccine Recombinant Unknown Completed [facility] Influenza High Dose Quad Unknown Completed [facility] SARS-COV-2 COVID-19 MODERNA 12+ YRS VACCINE Unknown Completed [facility] SARS-COV-2 COVID-19 MODERNA 0.25ML BOOSTER VACCINE Unknown Completed [facility] Remdesivir Unknown Completed [facility] Remdesivir Unknown Completed [facility] Influenza Virus Vaccine,quad Im,preserve Free 65+ (FLUAD) Unknown Completed [facility] Influenza Virus Vaccine Unknown Completed [facility] Pneumococcal Polysaccharide, PPSV23 (PNEUMOVAX) Unknown Completed [facility] Pneumococcal 13 Conjugate, PCV13 (Prevnar 13) Unknown Completed [facility] Influenza High Dose Unknown Completed [facility] Zoster(Zostavax)(Sh ingles) Unknown Completed [facility] TDAP Unknown Completed [facility] Zoster Vaccine Recombinant Unknown Completed [facility] Influenza High Dose Quad Unknown Completed [facility] SARS-COV-2 COVID-19 MODERNA 12+ YRS VACCINE Unknown Completed [facility] SARS-COV-2 COVID-19 MODERNA 0.25ML BOOSTER VACCINE Unknown Completed [facility] Remdesivir Unknown Completed [facility] Remdesivir Unknown Completed [facility] Influenza Virus Vaccine,quad Im,preserve Free 65+ (FLUAD) Unknown Completed [facility] Influenza Virus Vaccine Unknown Completed [facility] Pneumococcal Polysaccharide, PPSV23 (PNEUMOVAX) Unknown Completed [facility] Pneumococcal 13 Conjugate, PCV13 (Prevnar 13) Unknown Completed [facility] Influenza High Dose Unknown Completed [facility] Zoster(Zostavax)(Sh ingles) Unknown Completed [facility] TDAP Unknown Completed [facility] Zoster Vaccine Recombinant Unknown Completed [facility] Influenza High Dose Quad Unknown Completed [facility] SARS-COV-2 COVID-19 MODERNA 12+ YRS VACCINE Unknown Completed [facility] SARS-COV-2 COVID-19 MODERNA 0.25ML BOOSTER VACCINE Unknown Completed [facility] Remdesivir Unknown Completed [facility] Remdesivir Unknown Completed [facility] Influenza Virus Vaccine,quad Im,preserve Free 65+ (FLUAD) Unknown Completed [facility] Influenza Virus Vaccine Unknown Completed [facility] Pneumococcal Polysaccharide, PPSV23 (PNEUMOVAX) Unknown Completed [facility] Pneumococcal 13 Conjugate, PCV13 (Prevnar 13) Unknown Completed [facility] Influenza High Dose Unknown Completed [facility] Zoster(Zostavax)(Sh ingles) Unknown Completed [facility] TDAP Unknown Completed [facility] Zoster Vaccine Recombinant Unknown Completed [facility] Influenza High Dose Quad Unknown Completed [facility] SARS-COV-2 COVID-19 MODERNA 12+ YRS VACCINE Unknown Completed [facility] SARS-COV-2 COVID-19 MODERNA 0.25ML BOOSTER VACCINE Unknown Completed [facility] Remdesivir Unknown Completed [facility] Remdesivir Unknown Completed [facility] Influenza Virus Vaccine,quad Im,preserve Free 65+ (FLUAD) Unknown Completed [facility] Influenza Virus Vaccine Unknown Completed [facility] Pneumococcal Polysaccharide, PPSV23 (PNEUMOVAX) Unknown Completed [facility] Pneumococcal 13 Conjugate, PCV13 (Prevnar 13) Unknown Completed [facility] Influenza, High-Dose, Trivalent, PF (FLUZONE) Unknown Completed [facility] Zoster(Zostavax)(Sh ingles) Unknown Completed [facility] TDAP Unknown Completed [facility] Zoster Vaccine Recombinant Unknown Completed [facility] Influenza High Dose Quad Unknown Completed [facility] SARS-COV-2 COVID-19 MODERNA 12+ YRS VACCINE Unknown Completed [facility] SARS-COV-2 COVID-19 MODERNA 0.25ML BOOSTER VACCINE Unknown Completed [facility] Remdesivir Unknown Completed [facility] Remdesivir Unknown Completed [facility] Influenza Virus Vaccine,quad Im,preserve Free 65+ (FLUAD) Unknown Completed [facility] Influenza Virus Vaccine Unknown Completed [facility] Pneumococcal Polysaccharide, PPSV23 (PNEUMOVAX) Unknown Completed [facility] Pneumococcal 13 Conjugate, PCV13 (Prevnar 13) Unknown Completed [facility] Influenza, High-Dose, Trivalent, PF (FLUZONE) Unknown Completed [facility] Zoster(Zostavax)(Sh ingles) Unknown Completed [facility] TDAP Unknown Completed [facility] Zoster Vaccine Recombinant Unknown Completed [facility] Influenza High Dose Quad Unknown Completed [facility] SARS-COV-2 COVID-19 MODERNA 12+ YRS VACCINE Unknown Completed [facility] SARS-COV-2 COVID-19 MODERNA 0.25ML BOOSTER VACCINE Unknown Completed [facility] Remdesivir Unknown Completed [facility] Remdesivir Unknown Completed [facility] Influenza Virus Vaccine,quad Im,preserve Free 65+ (FLUAD) Unknown Completed [facility] Influenza Virus Vaccine Unknown Completed [facility] Pneumococcal Polysaccharide, PPSV23 (PNEUMOVAX) Unknown Completed [facility] Pneumococcal 13 Conjugate, PCV13 (Prevnar 13) Unknown Completed [facility] Influenza, High-Dose, Trivalent, PF (FLUZONE) Unknown Completed [facility] Zoster(Zostavax)( ingles) Unknown Completed [facility] TDAP Unknown Completed [facility] Zoster Vaccine Recombinant Unknown Completed [facility] Influenza High Dose Quad Unknown Completed [facility] SARS-COV-2 COVID-19 MODERNA 12+ YRS VACCINE Unknown Completed [facility] SARS-COV-2 COVID-19 MODERNA 0.25ML BOOSTER VACCINE Unknown Completed [facility] Remdesivir Unknown Completed [facility] Remdesivir Unknown Completed [facility] Influenza Virus Vaccine,quad Im,preserve Free 65+ (FLUAD) Unknown Completed [facility] Influenza Virus Vaccine Unknown Completed [facility] Pneumococcal Polysaccharide, PPSV23 (PNEUMOVAX) Unknown Completed [facility] Pneumococcal 13 Conjugate, PCV13 (Prevnar 13) Unknown Completed [facility] Influenza, High-Dose, Trivalent, PF (FLUZONE) Unknown Completed [facility] Zoster(Zostavax)(Sh ingles) Unknown Completed [facility] TDAP Unknown Completed [facility] Zoster Vaccine Recombinant Unknown Completed [facility] Influenza High Dose Quad Unknown Completed [facility] SARS-COV-2 COVID-19 MODERNA 12+ YRS VACCINE Unknown Completed [facility] SARS-COV-2 COVID-19 MODERNA 0.25ML BOOSTER VACCINE Unknown Completed [facility] Remdesivir Unknown Completed [facility] Remdesivir Unknown Completed [facility] Influenza Virus Vaccine,quad Im,preserve Free 65+ (FLUAD) Unknown Completed [facility] Influenza Virus Vaccine Unknown Completed [facility] Pneumococcal Polysaccharide, PPSV23 (PNEUMOVAX) Unknown Completed [facility] Pneumococcal 13 Conjugate, PCV13 (Prevnar 13) Unknown Completed [facility] Influenza, High-Dose, Trivalent, PF (FLUZONE) Unknown Completed [facility] Zoster(Zostavax)(Sh ingles) Unknown Completed [facility] TDAP Unknown Completed [facility] Zoster Vaccine Recombinant Unknown Completed [facility] Influenza High Dose Quad Unknown Completed [facility] SARS-COV-2 COVID-19 MODERNA 12+ YRS VACCINE Unknown Completed [facility] SARS-COV-2 COVID-19 MODERNA 0.25ML BOOSTER VACCINE Unknown Completed [facility] Remdesivir Unknown Completed [facility] Remdesivir Unknown Completed [facility] Influenza Virus Vaccine,quad Im,preserve Free 65+ (FLUAD) Unknown Completed [facility] Vital Signs Vital Name Observation Time Observation Value Comments S ource Systolic blood pressure 2024-05-23 15:08:00 125 mm[Hg] [facility] Diastolic blood pressure 2024-05-23 15:08:00 79 mm[Hg] [facility] Heart rate 2024-05-23 15:08:00 78 /min [facility] Body height 2024-05-23 15:08:00 149.9 cm [facility] Body weight 2024-05-23 15:08:00 46.675 kg [facility] BMI 2024-05-23 15:08:00 20.78 kg/m2 [facility] Oxygen saturation in Arterial blood by Pulse oximetry 2024-05-23 15:08:00 97 /min [facility] Systolic blood pressure 2024-05-10 16:40:00 103 mm[Hg] [facility] Diastolic blood pressure 2024-05-10 16:40:00 66 mm[Hg] [facility] Heart rate 2024-05-10 16:40:00 84 /min [facility] Body temperature 2024-05-10 16:40:00 36.78 [facility] Body height 2024-05-10 16:40:00 149.9 cm [facility] Body weight 2024-05-10 16:40:00 46.63 kg [facility] BMI 2024-05-10 16:40:00 20.76 kg/m2 [facility] Oxygen saturation in Arterial blood by Pulse oximetry 2024-05-10 16:40:00 95 /min [facility] Systolic blood pressure 2024-02-19 22:29:00 121 mm[Hg] [facility] Diastolic blood pressure 2024-02-19 22:29:00 72 mm[Hg] [facility] Heart rate 2024-02-19 22:29:00 98 /min [facility] Body height 2024-02-19 22:29:00 149.9 cm [facility] Body weight 2024-02-19 22:29:00 45.36 kg [facility] BMI 2024-02-19 22:29:00 20.20 kg/m2 [facility] Systolic blood pressure 2024-01-08 19:10:00 120 mm[Hg] [facility] Diastolic blood pressure 2024-01-08 19:10:00 75 mm[Hg] [facility] Heart rate 2024-01-08 19:10:00 68 /min [facility] Respiratory rate 2024-01-08 19:10:00 15 /min [facility] Oxygen saturation in Arterial blood by Pulse oximetry 2024-01-08 19:10:00 97 /min [facility] Body temperature 2024-01-08 16:11:00 36.33 [facility] Body height 2024-01-08 12:43:00 147.3 cm [facility] Body weight 2024-01-08 12:43:00 43.092 kg [facility] BMI 2024-01-08 12:43:00 19.86 kg/m2 [facility] Systolic blood pressure 2024-01-08 17:15:00 112 mm[Hg] [facility] Diastolic blood pressure 2024-01-08 17:15:00 64 mm[Hg] [facility] Heart rate 2024-01-08 17:15:00 76 /min [facility] 2024-01-08 17:15:00 13 /min [facility] Oxygen saturation in Arterial blood by Pulse oximetry 2024-01-08 17:15:00 97 /min [facility] Body temperature 2024-01-08 16:11:00 36.33 Annie [facility] Body height 2024-01-08 12:43:00 147.3 cm [facility] Body weight 2024-01-08 12:43:00 43.092 kg [facility] BMI 2024-01-08 12:43:00 19.86 [facility] Body height 2023-12-19 13:33:00 147.3 cm [facility] Body weight 2023-12-19 13:33:00 44.725 kg [facility] BMI 2023-12-19 13:33:00 20.61 kg/m2 [facility] Systolic blood pressure 2023-12-15 15:50:00 109 mm[Hg] [facility] Diastolic blood pressure 2023-12-15 15:50:00 72 mm[Hg] [facility] Heart rate 2023-12-15 15:50:00 85 /min [facility] Body height 2023-12-15 15:50:00 147.3 cm [facility] Body weight 2023-12-15 15:50:00 45.088 kg [facility] BMI 2023-12-15 15:50:00 20.77 kg/m2 [facility] Oxygen saturation in Arterial blood by Pulse oximetry 2023-12-15 15:50:00 95 /min [facility] Body height 2023-11-07 14:08:00 147.3 [facility] Body weight 2023-11-07 14:08:00 46.72 kg [facility] BMI 2023-11-07 14:08:00 21.53 kg/m2 [facility] Systolic blood pressure 2023-10-26 19:59:00 113 mm[Hg] [facility] Diastolic blood pressure 2023-10-26 19:59:00 73 mm[Hg] [facility] Heart rate 2023-10-26 19:59:00 78 /min [facility] Respiratory rate 2023-10-26 19:59:00 18 /min [facility] Body height 2023-10-26 19:59:00 149.9 cm [facility] Body weight 2023-10-26 19:59:00 44.997 kg [facility] BMI 2023-10-26 19:59:00 20.04 kg/m2 [facility] Oxygen saturation in Arterial blood by Pulse oximetry 2023-10-26 19:59:00 96 /min [facility] Systolic blood pressure 2023-10-24 19:42:00 120 mm[Hg] [facility] Diastolic blood pressure 2023-10-24 19:42:00 75 mm[Hg] [facility] Heart rate 2023-10-24 19:42:00 91 /min [facility] Respiratory rate 2023-10-24 19:42:00 19 /min [facility] Body weight 2023-10-24 19:42:00 44.226 kg [facility] BMI 2023-10-24 19:42:00 20.38 kg/m2 [facility] Oxygen saturation in Arterial blood by Pulse oximetry 2023-10-24 19:42:00 96 /min [facility] Systolic blood pressure 2023-10-05 14:14:00 112 mm[Hg] [facility] Diastolic blood pressure 2023-10-05 14:14:00 72 mm[Hg] [facility] Heart rate 2023-10-05 14:14:00 91 /min [facility] Body height 2023-10-05 14:14:00 147.3 cm [facility] Body weight 2023-10-05 14:14:00 43.954 kg [facility] BMI 2023-10-05 14:14:00 20.25 kg/m2 [facility] Oxygen saturation in Arterial blood by Pulse oximetry 2023-10-05 14:14:00 97 /min [facility] Systolic blood pressure 2023-09-18 15:40:00 92 mm[Hg] [facility] Diastolic blood pressure 2023-09-18 15:40:00 80 mm[Hg] [facility] Heart rate 2023-09-18 15:40:00 65 /min [facility] Body temperature 2023-09-18 15:40:00 36.17 [facility] Respiratory rate 2023-09-18 15:40:00 14 /min [facility] Oxygen saturation in Arterial blood by Pulse oximetry 2023-09-18 15:40:00 97 /min [facility] Body weight 2023-09-12 17:00:00 44.906 kg [facility] BMI 2023-09-12 17:00:00 20.00 kg/m2 [facility] Systolic blood pressure 2023-09-18 15:40:00 92 mm[Hg] [facility] Diastolic blood pressure 2023-09-18 15:40:00 80 mm[Hg] [facility] Heart rate 2023-09-18 15:40:00 65 /min [facility] Body temperature 2023-09-18 15:40:00 36.17 [facility] Respiratory rate 2023-09-18 15:40:00 14 /min [facility] Oxygen saturation in Arterial blood by Pulse oximetry 2023-09-18 15:40:00 97 /min [facility] Body weight 2023-09-12 17:00:00 44.906 kg [facility] BMI 2023-09-12 17:00:00 20.00 kg/m2 [facility] Body height 2023-09-12 13:05:00 149.9 cm [facility] Body weight 2023-09-12 13:05:00 44.906 [facility] BMI 2023-09-12 13:05:00 20.00 kg/m2 [facility] Systolic blood pressure 2023-09-08 18:09:00 115 mm[Hg] [facility] Diastolic blood pressure 2023-09-08 18:09:00 72 mm[Hg] [facility] Heart rate 2023-09-08 18:09:00 85 /min [facility] Body temperature 2023-09-08 18:09:00 36.17 Annie [facility] Respiratory rate 2023-09-08 18:09:00 18 /min [facility] Body height 2023-09-08 18:09:00 149.9 cm [facility] Body weight 2023-09-08 18:09:00 44.044 kg [facility] BMI 2023-09-08 18:09:00 19.61 kg/m2 [facility] Oxygen saturation in Arterial blood by Pulse oximetry 2023-09-08 18:09:00 96 /min [facility] Systolic blood pressure 2023-06-15 15:30:00 102 mm[Hg] [facility] Diastolic blood pressure 2023-06-15 15:30:00 61 mm[Hg] [facility] Heart rate 2023-06-15 15:30:00 80 /min [facility] Body height 2023-06-15 15:30:00 147.3 cm [facility] Body weight 2023-06-15 15:30:00 45.133 kg [facility] BMI 2023-06-15 15:30:00 20.80 kg/m2 [facility] Oxygen saturation in Arterial blood by Pulse oximetry 2023-06-15 15:30:00 96 /min [facility] Body height 2023-05-25 14:23:00 147.3 cm [facility] Body weight 2023-05-25 14:23:00 44.997 kg [facility] BMI 2023-05-25 14:23:00 20.73 kg/m2 [facility] Systolic blood pressure 2023-05-14 15:26:00 120 mm[Hg] [facility] Diastolic blood pressure 2023-05-14 15:26:00 76 mm[Hg] [facility] Heart rate 2023-05-14 15:26:00 87 /min [facility] Body temperature 2023-05-14 15:26:00 36.5 Annie [facility] Respiratory rate 2023-05-14 15:26:00 14 /min [facility] Body height 2023-05-14 15:26:00 147.3 cm [facility] Body weight 2023-05-14 15:26:00 46.267 kg [facility] BMI 2023-05-14 15:26:00 21.32 kg/m2 [facility] Oxygen saturation in Arterial blood by Pulse oximetry 2023-05-14 15:26:00 95 /min [facility] Systolic blood pressure 2022-12-21 15:44:00 113 mm[Hg] [facility] Diastolic blood pressure 2022-12-21 15:44:00 71 mm[Hg] [facility] Heart rate 2022-12-21 15:44:00 91 /min [facility] Body temperature 2022-12-21 15:44:00 36.44 Annie [facility] Respiratory rate 2022-12-21 15:44:00 20 /min [facility] Body height 2022-12-21 15:44:00 147.3 cm [facility] Body weight 2022-12-21 15:44:00 47.628 kg [facility] BMI 2022-12-21 15:44:00 21.95 kg/m2 [facility] Oxygen saturation in Arterial blood by Pulse oximetry 2022-12-21 15:44:00 98 /min [facility] Systolic blood pressure 2022-12-21 15:44:00 113 mm[Hg] [facility] Diastolic blood pressure 2022-12-21 15:44:00 71 mm[Hg] [facility] Heart rate 2022-12-21 15:44:00 91 /min [facility] Body temperature 2022-12-21 15:44:00 36.44 [facility] Respiratory rate 2022-12-21 15:44:00 20 /min [facility] Body height 2022-12-21 15:44:00 147.3 cm [facility] Body weight 2022-12-21 15:44:00 47.628 kg [facility] BMI 2022-12-21 15:44:00 21.95 kg/m2 [facility] Oxygen saturation in Arterial blood by Pulse oximetry 2022-12-21 15:44:00 98 /min [facility] Systolic blood pressure 2022-11-11 21:27:00 130 mm[Hg] [facility] Diastolic blood pressure 2022-11-11 21:27:00 74 mm[Hg] [facility] Heart rate 2022-11-11 21:27:00 88 /min [facility] Body height 2022-11-11 21:27:00 148.6 cm [facility] Body weight 2022-11-11 21:27:00 48.535 kg [facility] BMI 2022-11-11 21:27:00 21.98 kg/m2 [facility] Oxygen saturation in Arterial blood by Pulse oximetry 2022-11-11 21:27:00 96 /min [facility] Systolic blood pressure 2022-10-21 14:00:00 112 mm[Hg] [facility] Diastolic blood pressure 2022-10-21 14:00:00 70 mm[Hg] [facility] Heart rate 2022-10-21 14:00:00 83 /min [facility] Body temperature 2022-10-21 14:00:00 36.78 Annie [facility] Body height 2022-10-21 14:00:00 147.3 cm [facility] Body weight 2022-10-21 14:00:00 47.673 kg [facility] BMI 2022-10-21 14:00:00 21.97 kg/m2 [facility] Oxygen saturation in Arterial blood by Pulse oximetry 2022-10-21 14:00:00 94 /min [facility] Systolic blood pressure 2022-10-16 20:00:00 127 mm[Hg] [facility] Diastolic blood pressure 2022-10-16 20:00:00 77 mm[Hg] [facility] Heart rate 2022-10-16 20:00:00 61 /min [facility] Respiratory rate 2022-10-16 20:00:00 17 /min [facility] Oxygen saturation in Arterial blood by Pulse oximetry 2022-10-16 20:00:00 94 /min [facility] Body temperature 2022-10-16 16:27:00 37.28 [facility] Body height 2022-10-16 16:27:00 147.3 cm [facility] Body weight 2022-10-16 16:27:00 45.36 kg [facility] BMI 2022-10-16 16:27:00 20.90 kg/m2 [facility] Systolic blood pressure 2022-10-16 15:59:00 134 mm[Hg] [facility] Diastolic blood pressure 2022-10-16 15:59:00 81 mm[Hg] [facility] Heart rate 2022-10-16 15:59:00 79 /min [facility] Body temperature 2022-10-16 15:59:00 36.39 [facility] Respiratory rate 2022-10-16 15:59:00 14 /min [facility] Body height 2022-10-16 15:59:00 149.9 cm [facility] Body weight 2022-10-16 15:59:00 47.174 kg [facility] BMI 2022-10-16 15:59:00 21.01 kg/m2 [facility] Oxygen saturation in Arterial blood by Pulse oximetry 2022-10-16 15:59:00 97 /min [facility] Systolic blood pressure 2022-09-07 17:00:00 109 mm[Hg] [facility] Diastolic blood pressure 2022-09-07 17:00:00 74 mm[Hg] [facility] Heart rate 2022-09-07 17:00:00 76 /min [facility] Body temperature 2022-09-07 17:00:00 36.22 [facility] Body height 2022-09-07 17:00:00 149.9 cm [facility] Body weight 2022-09-07 17:00:00 47.582 kg [facility] BMI 2022-09-07 17:00:00 21.19 kg/m2 [facility] Oxygen saturation in Arterial blood by Pulse oximetry 2022-09-07 17:00:00 95 /min [facility] Systolic blood pressure 2022-07-20 14:36:00 104 mm[Hg] [facility] Diastolic blood pressure 2022-07-20 14:36:00 65 mm[Hg] [facility] Heart rate 2022-07-20 14:36:00 78 /min [facility] Respiratory rate 2022-07-20 14:36:00 18 /min [facility] Body height 2022-07-20 14:36:00 147.3 cm [facility] Body weight 2022-07-20 14:36:00 48.081 kg [facility] BMI 2022-07-20 14:36:00 22.15 kg/m2 [facility] Oxygen saturation in Arterial blood by Pulse oximetry 2022-07-20 14:36:00 95 /min [facility] Systolic blood pressure 2022-07-20 14:30:00 104 mm[Hg] [facility] Diastolic blood pressure 2022-07-20 14:30:00 65 mm[Hg] [facility] Heart rate 2022-07-20 14:30:00 78 /min [facility] Respiratory rate 2022-07-20 14:30:00 18 /min [facility] Body height 2022-07-20 14:30:00 147.3 cm [facility] Body weight 2022-07-20 14:30:00 48.081 kg [facility] BMI 2022-07-20 14:30:00 22.15 kg/m2 [facility] Oxygen saturation in Arterial blood by Pulse oximetry 2022-07-20 14:30:00 95 /min [facility] Body height 2022-04-21 16:25:00 149.9 cm [facility] Body weight 2022-04-21 16:25:00 47.174 kg [facility] BMI 2022-04-21 16:25:00 21.01 kg/m2 [facility] Systolic blood pressure 2022-04-20 20:55:00 116 mm[Hg] [facility] Diastolic blood pressure 2022-04-20 20:55:00 69 mm[Hg] [facility] Heart rate 2022-04-20 20:55:00 86 /min [facility] Respiratory rate 2022-04-20 20:55:00 18 /min [facility] Body weight 2022-04-20 20:55:00 47.174 kg [facility] BMI 2022-04-20 20:55:00 21.01 kg/m2 [facility] Oxygen saturation in Arterial blood by Pulse oximetry 2022-04-20 20:55:00 96 /min [facility] Systolic blood pressure 2022-04-15 18:34:00 109 mm[Hg] [facility] Diastolic blood pressure 2022-04-15 18:34:00 74 mm[Hg] [facility] Heart rate 2022-04-15 18:34:00 94 /min [facility] Body temperature 2022-04-15 18:34:00 36.83 [facility] Respiratory rate 2022-04-15 18:34:00 16 /min [facility] Body height 2022-04-15 18:34:00 149.9 cm [facility] Body weight 2022-04-15 18:34:00 47.854 kg [facility] BMI 2022-04-15 18:34:00 21.31 kg/m2 [facility] Oxygen saturation in Arterial blood by Pulse oximetry 2022-04-15 18:34:00 95 /min [facility] Systolic blood pressure 2022-03-07 14:18:00 110 mm[Hg] [facility] Diastolic blood pressure 2022-03-07 14:18:00 71 mm[Hg] [facility] Heart rate 2022-03-07 14:18:00 86 /min [facility] Body temperature 2022-03-07 14:18:00 36.44 [facility] Respiratory rate 2022-03-07 14:18:00 18 /min [facility] Body height 2022-03-07 14:18:00 147.3 cm [facility] Body weight 2022-03-07 14:18:00 46.267 kg [facility] BMI 2022-03-07 14:18:00 21.32 kg/m2 [facility] Systolic blood pressure 2022-03-02 14:06:00 127 mm[Hg] [facility] Diastolic blood pressure 2022-03-02 14:06:00 70 mm[Hg] [facility] Heart rate 2022-03-02 14:06:00 84 /min [facility] Body weight 2022-03-02 14:06:00 47.945 kg [facility] BMI 2022-03-02 14:06:00 22.09 kg/m2 [facility] Oxygen saturation in Arterial blood by Pulse oximetry 2022-03-02 14:06:00 97 /min [facility] Systolic blood pressure 2022-02-22 22:00:00 124 mm[Hg] [facility] Diastolic blood pressure 2022-02-22 22:00:00 81 mm[Hg] [facility] Heart rate 2022-02-22 22:00:00 78 /min [facility] Body temperature 2022-02-22 22:00:00 36.5 [facility] Respiratory rate 2022-02-22 22:00:00 21 /min [facility] Oxygen saturation in Arterial blood by Pulse oximetry 2022-02-22 22:00:00 95 /min [facility] Body weight 2022-02-22 09:31:00 48.988 kg [facility] BMI 2022-02-22 09:31:00 22.57 kg/m2 [facility] Body height 2022-02-20 22:03:00 147.3 cm [facility] Systolic blood pressure 2022-02-20 17:08:00 116 mm[Hg] [facility] Diastolic blood pressure 2022-02-20 17:08:00 71 mm[Hg] [facility] Heart rate 2022-02-20 17:08:00 83 /min [facility] Body temperature 2022-02-20 17:08:00 37.06 [facility] Respiratory rate 2022-02-20 17:08:00 16 /min [facility] Body height 2022-02-20 17:08:00 175.3 cm [facility] Body weight 2022-02-20 17:08:00 89.767 kg [facility] BMI 2022-02-20 17:08:00 29.22 kg/m2 [facility] Oxygen saturation in Arterial blood by Pulse oximetry 2022-02-20 17:08:00 98 /min [facility] Systolic blood pressure 2022-02-08 16:10:00 132 mm[Hg] [facility] Diastolic blood pressure 2022-02-08 16:10:00 73 mm[Hg] [facility] Heart rate 2022-02-08 16:10:00 76 /min [facility] Body temperature 2022-02-08 16:10:00 37.06 [facility] Respiratory rate 2022-02-08 16:10:00 16 /min [facility] Body height 2022-02-08 16:10:00 147.3 cm [facility] Body weight 2022-02-08 16:10:00 48.223 kg [facility] BMI 2022-02-08 16:10:00 22.22 kg/m2 [facility] Oxygen saturation in Arterial blood by Pulse oximetry 2022-02-08 16:10:00 98 /min [facility] Systolic blood pressure 2021-08-07 15:15:00 113 mm[Hg] [facility] Diastolic blood pressure 2021-08-07 15:15:00 75 mm[Hg] [facility] Heart rate 2021-08-07 15:15:00 75 /min [facility] Body temperature 2021-08-07 15:15:00 36.94 [facility] Respiratory rate 2021-08-07 15:15:00 14 /min [facility] Body height 2021-08-07 15:15:00 147.3 cm [facility] Body weight 2021-08-07 15:15:00 48.308 kg [facility] BMI 2021-08-07 15:15:00 22.26 kg/m2 [facility] Oxygen saturation in Arterial blood by Pulse oximetry 2021-08-07 15:15:00 98 /min [facility] Systolic blood pressure 2021-08-06 01:32:00 137 mm[Hg] [facility] Diastolic blood pressure 2021-08-06 01:32:00 81 mm[Hg] [facility] Heart rate 2021-08-06 01:32:00 76 /min [facility] Body temperature 2021-08-06 01:32:00 36.28 [facility] Respiratory rate 2021-08-06 01:32:00 16 /min [facility] Body height 2021-08-06 01:32:00 147.3 cm [facility] Body weight 2021-08-06 01:32:00 49.896 kg [facility] BMI 2021-08-06 01:32:00 22.99 kg/m2 [facility] Oxygen saturation in Arterial blood by Pulse oximetry 2021-08-06 01:32:00 99 /min [facility] Systolic blood pressure 2021-08-06 00:58:00 133 mm[Hg] [facility] Diastolic blood pressure 2021-08-06 00:58:00 77 mm[Hg] [facility] Heart rate 2021-08-06 00:58:00 70 /min [facility] Body temperature 2021-08-06 00:58:00 36.78 [facility] Respiratory rate 2021-08-06 00:58:00 16 /min [facility] Body height 2021-08-06 00:58:00 147.3 cm [facility] Body weight 2021-08-06 00:58:00 48.535 kg [facility] BMI 2021-08-06 00:58:00 22.36 kg/m2 [facility] Oxygen saturation in Arterial blood by Pulse oximetry 2021-08-06 00:58:00 99 /min [facility] Systolic blood pressure 2021-07-26 16:52:00 114 mm[Hg] [facility] Diastolic blood pressure 2021-07-26 16:52:00 72 mm[Hg] [facility] Heart rate 2021-07-26 16:52:00 81 /min [facility] Body height 2021-07-26 16:52:00 147.3 cm [facility] Body weight 2021-07-26 16:52:00 47.9 kg [facility] BMI 2021-07-26 16:52:00 22.07 kg/m2 [facility] Oxygen saturation in Arterial blood by Pulse oximetry 2021-07-26 16:52:00 96 /min [facility] Procedures Procedure Date / Time Performed Performing Clinician Source XR HIPS 2 VW LEFT 2024-05-23 15:32:23 Caitlyn Rosario [facility] XR HIPS 2 VW LEFT 2024-02-19 22:50:54 Caitlyn Rosario [facility] DEXA AXIAL (HIP AND SPINE) 2024-02-15 16:21:00 Jerry Ibarra [facility] XR HIPS 2 VW LEFT 2024-01-08 16:30:00 Caitlyn Rosario [facility] TOTAL HIP ARTHROPLASTY 2024-01-08 13:54:00 Ania Rosario [facility] CBC WITH DIFF 2024-01-08 12:50:[address] [facility] HB ABO GROUPING 2024-01-08 12:50:00 Caitlyn Rosario [facility] CBC WITH DIFF 2024-01-08 12:50:[address] [facility] HB ABO GROUPING 2024-01-08 12:50:00 Caitlyn Rosario [facility] XR HIPS 3 VW LEFT 2023-12-19 13:55:09 Caitlyn Rosario [facility] FL TIME OR (NON-REPORTABLE) 2023-09-18 15:10:43 Caitlyn Rosario [facility] FL TIME OR (NON-REPORTABLE) 2023-09-18 15:10:43 Caitlyn Rosario [facility] [address] - [place] ARTHROCENTESIS ASPIR&/INJ MAJOR JT/BURSA W/O US 2023-09-18 14:49:00 Caitlyn Rosario [facility] [address] - CHG CT GUIDANCE NEEDLE PLACEMENT 2023-09-18 14:49:00 Caitlyn Rosario [facility] XR HIPS 2 VW LEFT 2023-05-25 14:35:08 Caitlyn Rosario [facility] PHYSICIAN CERTIFICATION STATEMENT 2023-05-23 06:01:00 Doctor Unassigned, [place] [facility] AUTHORIZATION FOR RELEASE OF PHI 2023-02-03 05:01:00 Doctor Unassigned, [place] [facility] DME/SUPPLY JUSTIFICATION 2023-01-24 05:01:00 Doc tor Unassigned, [place] [facility] FLU VACC([id number]),65+YR,0.5 ML,IM,ADJUVANTED,QUAD(FLU AD) 2023-01-20 20:16:03 Doctor Unassigned, [place] [facility] URINE CULTURE 2022-12-21 16:59:00 Doron Ortiz [facility] VITAMIN D, 25-[place] 2022-12-21 16:22:00 Shakira Ortiz [facility] VITAMIN B12, LEVEL 2022-12-21 16:22:00 Maritza Bear [facility] FOLATE 2022-12-21 16:22:00 Norberto Bear [facility] VITAMIN D, 25-[place] 2022-12-21 16:22:00 Shakira Ortiz [facility] TROPONIN I 2022-10-16 18:40:00 Aysha [facility]onso [facility] XR CHEST 2 VW 2022-10-16 17:19:52 Aysha Alonso [facility] CT HEAD WO CONTRAST 2022-10-16 17:19:28 Payton Alonso [facility] MAGNESIUM 2022-10-16 16:48:00 Aysha Alonso [facility] TROPONIN I 2022-10-16 16:48:00 Aysha Alonso [facility] COMP. METABOLIC PANEL ([id number]) 2022-10-16 16:48:00 Aysha Alonso [facility] CBC WITH DIFF 2022-10-16 16:48:00 Aysha Alonso [facility] PROTHROMBIN TIME / INR 2022-10-16 16:48:00 Aysha Alonso [facility] ACTIVATED PARTIAL THRMPLAS YEIMY 2022-10-16 16:48:00 Aysha Alonso [facility] URINALYSIS 2022-10-16 16:48:00 Aysha Alonso [facility] N-TERMINAL PRO-BNP 2022-10-16 16:48:00 Lisa Alonso [facility] CONSENT/REFUSAL FOR DIAGNOSIS AND TREATMENT 2022-10-16 16:21:49 Doctor Unassigned, [place] [facility] CONSENT/REFUSAL FOR DIAGNOSIS AND TREATMENT 2022-09-07 16:50:18 Doctor Unassigned, [place] [facility] DEXA AXIAL (HIP AND SPINE) 2022-07-04 18:00:26 Cassia Parker [facility] XR CHEST 2 VW 2022-03-07 15:36:04 Doron Ortiz [facility] ASSIGNMENT OF BENEFITS 2022-03-07 15:15:21 Docto r Unassigned, [place] [facility] MAGNESIUM 2022-02-22 09:31:00 Venecia Calloway [facility] BASIC METABOLIC PANEL (NA, K, CL, CO2, GLUCOSE, BUN, CREATININE, CA) 2022-02-22 09:31:00 Venecia Calloway [facility] TROPONIN I 2022-02-21 21:51:00 Venecia Calloway [facility] TRANSTHORACIC ECHO (TTE) COMPLETE 2022-02-21 17:31:00 Alonso Monaco [facility] MAGNESIUM 2022-02-21 11:50:00 Venecia Calloway [facility] TROPONIN I 2022-02-21 11:50:00 Venecia Calloway [facility] BASIC METABOLIC PANEL (NA, K, CL, CO2, GLUCOSE, BUN, CREATININE, CA) 2022-02-21 11:50:00 Venecia Calloway [facility] LIPID PANEL ([id number])(TOTAL CHOLESTEROL, TRIGLYCERIDES, HDL) 2022-02-21 11:50:00 Alonso Monaco [facility] CBC WITH DIFF 2022-02-21 11:50:00 Venecia Calloway [facility] PNEUMOCOCCAL ANTIGEN 2022-02-21 06:45:00 Venecia Calloway [facility] TROPONIN I 2022-02-21 06:44:00 Venecia Calloway [facility] TROPONIN I 2022-02-20 23:23:00 Venecia Calloway [facility] THYROID STIMULATING HORMONE 2022-02-20 23:23:00 Alonso Monaco [facility] PROCALCITONIN 2022-02-20 23:23:00 Venecia Calloway [facility] MRSA / MSSA SCREEN BY PCR, LEMUEL 2022-02-20 23:23:00 Venecia Calloway [facility] CT CHEST PULMONARY ANGIOGRAM 2022-02-20 19:40:10 Rene Kay [facility] HB ECG ROUTINE & RHYTHM STRIP 2022-02-20 18:50:04 Rene Kay [facility] TROPONIN I 2022-02-20 18:45:[address] [facility] COMP. METABOLIC PANEL ([id number]) 2022-02-20 18:45:00 Rene Kay [facility] CBC WITH DIFF 2022-02-20 18:45:00 [facility] H[facility]OGLOB[facility] (A1C) 2022-02-20 18:45:00 Alonso Monaco [facility] COVID-19 (ID NOW RAPID TESTING) 2022-02-20 18:45:00 Rene Kay [facility] LAB ONLY COVID INTERPRETATION 2022-02-20 18:45:00 Rene Kay [facility] POCT SARS-COV-2 ANTIGEN (BINAX NOW) 2022-02-20 18:18:00 Tracey Cedeno [facility] CONSENT/REFUSAL FOR DIAGNOSIS AND TREATMENT 2022-02-20 18:17:21 Doctor Unassigned, [place] [facility] POCT MOLECULAR STREP 2022-02-20 17:28:00 Unknown, Atte haylie [facility] POCT MOLECULAR FLU 2022-02-20 17:27:00 Unknown, Attend ing [facility] NOTICE OF PRIVACY PRACTICES 2021-08-06 01:19:38 Doctor Unassigned, [place] [facility] CONSENT/REFUSAL FOR DIAGNOSIS AND TREATMENT 2021-08-06 01:13:34 Doctor Unassigned, [place] [facility] ASSIGNMENT OF BENEFITS 2021-08-06 00:29:21 Docto r Unassigned, [place] [facility] Encounters Start Date/Time End Date/Time Encounter Type Admission Type Attending Clinicians Care Facility Care Department Encounter ID Source 2024-05-30 09:00:00 2024-05-30 09:00:00 Outpatient R [facility] [id number] [facility] 2024-05-28 00:00:00 2024-05-28 16:16:01 Telephone [facility] 1..840.114 350.1.13.10 4.2.7.2.686 [id number] [facility] 2024-05-23 09:06:44 2024-05-23 23:59:00 Hospital Encounter Caitlyn Rosario [facility] 1..840.114 350.1.13.10 4.2.7.2.686 [id number] [facility] 2024-05-23 09:00:00 2024-05-23 09:44:54 Outpatient R DOUGLAS ROSARIOIG CAITLYN ROSARIO [facility] [id number] [facility] 2024-05-23 09:00:00 2024-05-23 09:44:54 Office Visit Caitlyn Rosario [facility] [place]?[facility] 1..840.114 350.1.13.10 4.2.7.2.686 [id number] [facility] 2024-05-21 13:00:00 2024-05-21 13:00:00 Outpatient R [facility] [id number] [facility] 2024-05-13 00:00:00 2024-05-13 15:24:[address] [facility] [place]?[facility] 1..840.114 350.1.13.10 4.2.7.2.686 [id number] [facility] 2024-05-09 00:00:00 2024-05-13 15:24:[address] [facility] [place]?[facility] 1.2840.114 350.1.13.10 4.2.7.2.686 [id number] [facility] 2024-05-13 00:00:00 2024-05-13 12:45:08 Pre Visit Outreach Maritza Ralph Elizabeth J [facility] 1.20.114 350.1.13.10 4.2.7.2.686 [id number] [facility] 2024-05-10 10:30:00 2024-05-10 11:15:05 Outpatient R JERRY IBARRA [facility] [id number] [facility] 2024-05-10 10:30:00 2024-05-10 11:15:05 Office Visit Jerry Ibarra [facility] [place] 1.20.114 350.1.13.10 4.2.7.2.686 [id number] [facility] 2024-05-08 00:00:00 2024-05-10 11:10:36 Telephone Loyda Mcdonough [facility] [place]?[facility] 1.2.114 350.1.13.10 4.2.7.2.686 [id number] [facility] 2024-05-01 00:00:00 2024-05-01 10:02:29 Telephone Stacey Jerry Jackson [facility] [place]?[facility] 1.20.114 350.1.13.10 4.2.7.2.686 [id number] [facility] 2024-03-19 00:00:00 2024-03-19 16:47:50 Telephone Caitlyn [facility] 1.2.114 350.1.13.10 4.2.7.2.686 [id number] [facility] 2024-03-13 00:00:00 2024-03-19 09:30:05 Telephone Loyda [facility]cdonough [facility] 1.2.840.114 350.1.13.10 4.2.7.2.686 [id number] [facility] 2024-02-28 00:00:00 2024-02-28 11:27:30 Telephone Caitlyn Rosario [facility] [place]?[facility] 1..840.114 350.1.13.10 4.2.7.2.686 [id number] [facility] 2024-02-22 10:00:00 2024-02-22 10:00:00 Outpatient R CAITLYN ROSARIO CRAIG [facility] [id number] [facility] 2024-02-20 00:00:00 2024-02-20 14:21:36 Telephone RosarioCaitlyn ortiz [facility] [place]?[facility] 1..840.114 350.1.13.10 4.2.7.2.686 [id number] [facility] 2024-02-19 16:34:53 2024-02-19 23:59:00 Outpatient R CAITLYN ROSARIO CRAIG [facility] [id number] [facility] 2024-02-19 16:34:53 2024-02-19 23:59:00 Hospital Encounter Caitlyn [facility] 1.2.840.114 350.1.13.10 4.2.7.2.686 [id number] [facility] 2024-02-19 16:15:00 2024-02-19 17:00:31 Office Visit Caitlyn Rosario [facility] [place]?[facility] 1.114 350.1.13.10 4.2.7.2.686 [id number] [facility] 2024-02-16 00:00:00 2024-02-16 14:41:13 Telephone Erasto Trent Miatha R [facility] 1..114 350.1.13.10 4.2.7.2.686 [id number] [facility] 2024-02-15 10:04:25 2024-02-15 23:59:00 Outpatient R JERRY IBARRA [facility] [id number] [facility] 2024-02-15 10:04:25 2024-02-15 23:59:00 Hospital Encounter Jerry Ibarra [facility] 1..114 350.1.13.10 4.2.7.2.686 [id number] [facility] 2024-02-14 00:00:00 2024-02-15 10:15:10 Telephone Caitlyn Ros[facility] 1.114 350.1.13.10 4.2.7.2.686 [id number] [facility] 2024-01-10 00:00:00 2024-02-10 18:20:07 Patient Secure Msg Doctor Unassigned, [place] Doctor Unassigned, [place] [facility] [place]?[facility] 1.114 350.1.13.10 4.2.7.2.686 [id number] [facility] 2024-02-08 00:00:00 2024-02-08 09:14:13 Telephone Loyda Mcdonough [facility] [place]?[facility] 1..114 350.1.13.10 4.2.7.2.686 [id number] [facility] 2024-01-31 00:00:00 2024-01-31 16:15:09 Telephone Caitlyn [facility] 1.2.840.114 350.1.13.10 4.2.7.2.686 [id number] [facility] 2024-01-22 14:51:15 2024-01-22 23:59:00 Hospital Encounter Caitlyn Rosario [facility] [place]?[facility] 1.2.840.114 350.1.13.10 4.2.7.2.686 [id number] [facility] 2024-01-22 14:30:00 2024-01-22 15:19:11 Outpatient R MARLENE CIATLYN MARLENE [facility] [id number] [facility] 2024-01-22 14:30:00 2024-01-22 15:19:11 Office Visit Caitlyn [facility] 1.2840.114 350.1.13.10 4.2.7.2.686 [id number] [facility] 2024-01-19 00:00:00 2024-01-19 13:47:23 Telephone Caitlyn Rosario [facility] 1.2.840.114 350.1.13.10 4.2.7.2.686 [id number] [facility] 2024-01-10 00:00:00 2024-01-12 09:06:05 Telephone Thiago Loyda [facility] [place]?[facility] 1.2.840.114 350.1.13.10 4.2.7.2.686 [id number] [facility] 2024-01-11 09:00:00 2024-01-11 09:23:32 Outpatient R CAITLYN ROSARIO CRAIG [facility] [id number] [facility] 2024-01-11 09:00:00 2024-01-11 09:23:32 Office Visit Brianna Grant Caitlyn Rosario COUNT INCLUDES THE [facility] 1.20.114 350.1.13.10 4.2.7.2.686 [id number] [facility] 2024-01-09 00:00:00 2024-01-10 15:33:06 Telephone Marlene Caitlyn COUNT INCLUDES THE [facility] 1..114 350.1.13.10 4.2.7.2.686 [id number] [facility] 2024-01-08 07:32:00 2024-01-08 14:20:00 Outpatient R CAITLYN ROSARIO CAITLYN [facility] SOR [id number] [facility] 2024-01-08 07:32:00 2024-01-08 14:20:00 Hospital Encounter Marlene Caitlyn L [facility] 1.0.114 350.1.13.10 4.2.7.2.686 [id number] [facility] 2024-01-08 09:20:00 2024-01-08 12:19:00 Surgery Caitlyn Rosario [facility] 1.2840.114 350.1.13.10 4.2.7.2.686 [id number] [facility] 2024-01-05 00:00:00 2024-01-05 14:21:57 Telephone Marlene Caitlyn Payton [facility] BUILD[facility] 1.2.114 350.1.13.10 4.2.7.2.686 [id number] [facility] 2024-01-02 09:15:00 2024-01-02 09:30:00 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, [facility] Rosario, Caitlyn Cain 2, [facility] BU[facility] 1.840.114 350.1.13.10 4.2.7.2.686 [id number] [facility] 2024-01-02 09:15:00 2024-01-02 09:15:00 Outpatient R CAITLYN ROSARIO CRAIG [facility] [id number] [facility] 2023-12-29 10:15:00 2023-12-29 11:12:05 Outpatient R CAITLYN ROSARIO CRAIG [facility] [id number] [facility] 2023-12-29 10:15:00 2023-12-29 11:12:05 Ancillary Visit Kumar Choe Craig L Brown, Robert F [facility] BUILD[facility] 1.84.114 350.1.13.10 4.2.7.2.686 [id number] [facility] 2023-12-19 08:40:11 2023-12-19 23:59:00 Outpatient R CAITLYN ROSARIO CRAIG [facility] [id number] [facility] 2023-12-19 08:40:11 2023-12-19 23:59:00 Hospital Encounter Caitlyn Rosario [facility] 1.84.114 350.1.13.10 4.2.7.2.686 [id number] [facility] 2023-12-19 00:00:00 2023-12-19 12:03:24 Prep For Surgery Caitlyn Rosario [facility] 1..114 350.1.13.10 4.2.7.2.686 [id number] [facility] 2023-12-19 09:00:00 2023-12-19 09:27:53 Office Visit Caitlyn Rosario [facility] 1.2.840.114 350.1.13.10 4.2.7.2.686 [id number] [facility] 2023-12-15 10:30:00 2023-12-15 11:45:04 Outpatient R JERRY IBARRA [facility] [id number] [facility] 2023-12-15 10:30:00 2023-12-15 11:45:04 Office Visit Jerry Ibarra Manuel [facility] 1.2.840.114 350.1.13.10 4.2.7.2.686 [id number] [facility] 2023-11-10 09:30:00 2023-11-10 09:30:00 Outpatient R JERRY IBARRA [facility] [id number] [facility] 2023-11-07 09:30:00 2023-11-07 09:30:00 Office Visit Caitlyn Rosario [facility] 1.2.840.114 350.1.13.10 4.2.7.2.686 [id number] [facility] 2023-11-07 09:30:00 2023-11-07 09:29:45 Outpatient R CAITLYN ROSARIO CAITLYN [facility] [id number] [facility] 2023-10-26 15:20:00 2023-10-26 15:52:36 Outpatient R LOYDA MCDONOUGH [facility] [id number] [facility] 2023-10-26 15:20:00 2023-10-26 15:52:36 Office Visit Loyda Mcdonough [facility] 1.2.840.114 350.1.13.10 4.2.7.2.686 [id number] [facility] 2023-10-24 14:30:00 2023-10-24 15:00:00 [facility] 1..840.114 350.1.13.10 4.2.7.2.686 [id number] [facility] 2023-10-24 14:30:00 2023-10-24 14:30:00 Outpatient Edy GRANDE [facility] [id number] [facility] 2023-10-24 08:00:00 2023-10-24 08:00:00 Outpatient Edy VARELAManuel [facility] [id number] [facility] 2023-09-11 00:00:00 2023-10-14 18:19:46 Patient Secure Msg Doctor Unassigned, [place] [facility] 1..840.114 350.1.13.10 4.2.7.2.686 [id number] [facility] 2023-10-05 09:30:00 2023-10-05 09:32:11 Outpatient R CAITLYN ROSARIO CRAIG [facility] [id number] [facility] 2023-10-05 09:30:00 2023-10-05 09:32:11 Office Visit Caitlyn Rosario [facility] 1.2.840.114 350.1.13.10 4.2.7.2.686 [id number] [facility] 2023-09-18 08:52:00 2023-09-18 11:05:00 Outpatient R CAITLYN ROSARIO [facility]IG [facility] [id number] [facility] 2023-09-18 08:52:00 2023-09-18 11:05:00 Hospital Encounter Caitlyn Rosario [facility] [place] 1.2.840.114 350.1.13.10 4.2.7.2.686 [id number] [facility] 2023-09-18 10:40:00 2023-09-18 11:01:00 Surgery Caitlyn Rosario [facility] [place] 1.2.840.114 350.1.13.10 4.2.7.2.686 [id number] [facility] 2023-09-12 12:15:00 2023-09-12 12:30:00 Bread Wrapper Operator Visit Pob, Adc Lab Main Caitlyn Rosario [facility] PROFESSIO NAL BUILDING 1.2.840.114 350.1.13.10 4.2.7.2.686 [id number] [facility] 2023-09-12 00:00:00 2023-09-12 08:35:06 Prep For Surgery Caitlyn Rosario [facility] BUILDING 1.2.840.114 350.1.13.10 4.2.7.2.686 [id number] [facility] 2023-09-12 08:30:00 2023-09-12 08:30:00 Office Visit Caitlyn Rosario [facility] BUILDING 1.2.840.114 350.1.13.10 4.2.7.2.686 [id number] [facility] 2023-09-12 08:30:00 2023-09-12 08:28:13 Outpatient R CAITLYN ROSARIO CRAIG [facility] [id number] [facility] 2023-09-08 13:00:00 2023-09-08 13:31:32 Outpatient R LOYDA MCDONOUGH [facility] [id number] [facility] 2023-09-08 13:00:00 2023-09-08 13:31:32 Office Visit Thiago [facility] 1.2.840.114 350.1.13.10 4.2.7.2.686 [id number] [facility] 2023-08-24 09:20:00 2023-08-24 09:20:00 Outpatient Edy WELCHSeleneLOYDA [facility] [id number] [facility] 2023-08-21 10:20:00 2023-08-21 10:20:00 Outpatient LOYDA MORRIS [facility] [id number] [facility] 2023-06-15 09:45:00 2023-06-15 09:45:00 Office Visit Caitlyn Rosario [facility] 1.2.840.114 350.1.13.10 4.2.7.2.686 [id number] [facility] 2023-06-15 09:45:00 2023-06-15 09:38:21 Outpatient CAITLYN SESAY [facility] [id number] [facility] 2023-06-07 17:42:00 2023-06-07 23:59:00 Hospital Encounter Caitlyn Rosario [facility] 1.2.840.114 350.1.13.10 4.2.7.2.686 [id number] [facility] 2023-06-07 00:00:00 2023-06-07 23:59:00 Outpatient R CAITLYN ROSARIO [facility] OUT [id number] [facility] 2023-05-31 13:47:32 2023-05-31 23:59:00 Outpatient CAITLYN SESAY [facility] [id number] [facility] 2023-05-31 13:47:32 2023-05-31 23:59:00 Hospital Encounter Caitlyn Rosario [facility] 1.2.840.114 350.1.13.10 4.2.7.2.686 [id number] [facility] 2023-05-31 09:45:00 2023-05-31 10:00:00 Bread Wrapper Operator Visit Lab, Zuhair Salcedo Caitlny Rosario COUNT INCLUDES THE [facility] 1.2840.114 350.1.13.10 4.2.7.2.686 [id number] [facility] 2023-05-30 09:58:39 2023-05-30 23:59:00 Outpatient R DOUGLAS ROSARIOIG MARLENE CAITLYN [facility] [id number] [facility] 2023-05-30 09:58:39 2023-05-30 23:59:00 Hospital Encounter Caitlyn Rosario [facility] 1.2.840.114 350.1.13.10 4.2.7.2.686 [id number] [facility] 2023-05-29 00:00:00 2023-05-29 00:00:00 Telephone [facility] 1.2840.114 350.1.13.10 4.2.7.2.686 [id number] [facility] 2023-05-29 00:00:00 2023-05-29 00:00:00 Telephone Caitlyn [facility] 1.2.840.114 350.1.13.10 4.2.7.2.686 [id number] [facility] 2023-05-25 08:25:14 2023-05-25 23:59:00 Hospital Encounter Caitlyn Rosario [facility] 1.84.114 350.1.13.10 4.2.7.2.686 [id number] [facility] 2023-05-25 08:45:00 2023-05-25 09:11:17 Outpatient R CAITLYN ROSARIO [facility] [id number] [facility] [facility] 2023-05-25 08:45:00 2023-05-25 09:11:17 Office Visit Caitlyn Ros[facility] 1.84.114 350.1.13.10 4.2.7.2.686 [id number] [facility] 2023-05-23 00:00:00 2023-05-23 00:00:00 Telephone SmartCloud[facility] 1.84.114 350.1.13.10 4.2.7.2.686 [id number] [facility] 2023-05-23 00:00:00 2023-05-23 00:00:00 Orders Only Doctor Unassigned, [place] [facility] 1..114 350.1.13.10 4.2.7.2.686 [id number] [facility] 2023-05-22 00:00:00 2023-05-22 00:00:00 [facility] 1.84.114 350.1.13.10 4.2.7.2.686 [id number] [facility] 2023-05-22 00:00:00 2023-05-22 00:00:00 Telephone Doron Ortiz [facility] BU[facility] 1.84.114 350.1.13.10 4.2.7.2.686 [id number] [facility] 2023-05-14 09:00:00 2023-05-14 09:20:00 Urgent Care Meseret Nogueira Unknown, Attending [facility] 1..840.114 350.1.13.10 4.2.7.2.686 [id number] [facility] 2023-05-14 09:00:00 2023-05-14 09:00:00 Outpatient R MESERET NOGUEIRA [facility] [id number] [facility] 2023-03-23 15:00:00 2023-03-23 15:00:00 Outpatient R CAITLYN ROSARIO CRAIG [facility] [id number] [facility] 2023-03-23 00:00:00 2023-03-23 00:00:00 Telephone Caitlyn Rosario [facility] 1..840.114 350.1.13.10 4.2.7.2.686 [id number] [facility] 2023-03-22 08:40:00 2023-03-22 08:40:00 Outpatient R OBI-MARIE , DEVAUGHN OBI-MARIE , DEVAUGHN [facility] [id number] [facility] 2023-03-03 00:00:00 2023-03-03 00:00:00 Telephone Doron Ortiz [facility] NAL BUILDING 1..840.114 350.1.13.10 4.2.7.2.686 [id number] [facility] 2023-02-21 00:00:00 2023-02-21 00:00:[address] [facility] 1..840.114 350.1.13.10 4.2.7.2.686 [id number] [facility] 2023-02-20 00:00:00 2023-02-20 00:00:00 Telephone Diana [facility] 1.2.840.114 350.1.13.10 4.2.7.2.686 [id number] [facility] 2023-02-03 00:00:00 2023-02-03 00:00:00 Orders Only Doctor Unassigned, [place] [facility] 1.2.840.114 350.1.13.10 4.2.7.2.686 [id number] [facility] 2023-02-02 00:00:00 2023-02-02 00:00:00 Telephone Diana [facility] 1.2.840.114 350.1.13.10 4.2.7.2.686 [id number] [facility] 2023-01-24 00:00:00 2023-01-24 00:00:00 Pre Visit Outreach Diana [facility] 1.2.840.114 350.1.13.10 4.2.7.2.686 [id number] [facility] 2023-01-24 00:00:00 2023-01-24 00:00:00 Orders Only Doctor Unassigned, [place] [facility] 1.2.840.114 350.1.13.10 4.2.7.2.686 [id number] [facility] 2023-01-20 15:20:00 2023-01-20 15:40:00 Imm/Inj Visit Nurse, Zuhair Ortiz [facility] 1.2.840.114 350.1.13.10 4.2.7.2.686 [id number] [facility] 2023-01-20 15:20:00 2023-01-20 15:20:00 Outpatient R DORON ORTIZ OGECHUKWU [facility] [id number] [facility] 2023-01-20 00:00:00 2023-01-20 00:00:00 Telephone Doron Ortiz [facility] BUILDING 1.2.840.114 350.1.13.10 4.2.7.2.686 [id number] [facility] 2023-01-19 00:00:00 2023-01-19 00:00:00 Telephone Doron Ortiz [facility] BUILDING 1.2.840.114 350.1.13.10 4.2.7.2.686 [id number] [facility] 2022-12-28 13:00:00 2022-12-28 13:00:00 Outpatient R DORON ORTIZ OGECHUKWU [facility] [id number] [facility] 2022-12-23 00:00:00 2022-12-23 00:00:00 Telephone Doron Ortiz [facility] BUILDING 1.2.840.114 350.1.13.10 4.2.7.2.686 [id number] [facility] 2022-12-21 11:15:00 2022-12-21 11:30:00 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, Adc Lab Doron Ortiz [facility] NAL BUILDING 1.2.840.114 350.1.13.10 4.2.7.2.686 [id number] [facility] 2022-12-21 10:30:00 2022-12-21 11:12:30 Outpatient R [facility] [id number] [facility] 2022-12-21 10:30:00 2022-12-21 11:12:30 Office Visit Doron Ortiz [facility] BUILD[facility] 1.2.840.114 350.1.13.10 4.2.7.2.686 [id number] [facility] 2022-12-21 00:00:00 2022-12-21 00:00:00 Telephone Doron Ortiz [facility] BUILDING 1.2.840.114 350.1.13.10 4.2.7.2.686 [id number] [facility] 2022-11-24 10:48:22 2022-11-24 23:59:00 Outpatient R IBARRAMAVERICKIN [facility] [id number] [facility] 2022-11-24 10:48:22 2022-11-24 23:59:00 Hospital Encounter Jerry Ibarra [facility] 1.2.840.114 350.1.13.10 4.2.7.2.686 [id number] [facility] 2022-11-11 16:30:00 2022-11-11 17:02:18 Outpatient R STACEYMAVERICKIN [facility] [id number] [facility] 2022-11-11 16:30:00 2022-11-11 17:02:18 Office Visit Jerry Ibarra Manuel [facility] 1.2.840.114 350.1.13.10 4.2.7.2.686 [id number] [facility] 2022-10-21 09:00:00 2022-10-21 09:30:00 Office [facility] 1.2.840.114 350.1.13.10 4.2.7.2.686 [id number] [facility] 2022-10-21 09:00:00 2022-10-21 09:00:00 Outpatient R DORON ORTIZ OGECHUKWU [facility] [id number] [facility] 2022-10-16 11:24:00 2022-10-16 15:40:00 Emergency Schoeanuradha Aysha [facility] 1..840.114 350.1.13.10 4.2.7.2.686 [id number] [facility] 2022-10-16 10:40:00 2022-10-16 12:12:17 Outpatient R TRACEY CEDENO [facility] [id number] [facility] 2022-10-16 10:40:00 2022-10-16 12:12:17 Outpatient R TRACEY CEDENO [facility] ERT [id number] [facility] 2022-10-16 10:40:00 2022-10-16 11:00:00 Urgent Care Tracey Cedeno Unknown, Attending [facility] 1.2.840.114 350.1.13.10 4.2.7.2.686 [id number] [facility] 2022-09-07 12:00:00 2022-09-07 12:59:31 Outpatient R DORON ORTIZ OGECHUKWU [facility] [id number] [facility] 2022-09-07 12:00:00 2022-09-07 12:59:31 Office Visit DianaReyleslie [facility] NAL BUILDING 1.2.840.114 350.1.13.10 4.2.7.2.686 [id number] [facility] 2022-09-07 00:00:00 2022-09-07 00:00:00 Orders Only Doctor Unassigned, [place] [facility] 1.2.840.114 350.1.13.10 4.2.7.2.686 [id number] [facility] 2022-07-22 09:30:00 2022-07-22 09:30:00 Outpatient R JERRY IBARRA [facility] [id number] [facility] 2022-07-22 09:30:00 2022-07-22 09:30:00 Outpatient R JERRY IBARRA [facility] [id number] [facility] 2022-07-20 10:30:00 2022-07-20 10:51:01 Out[facility] [id number] [facility] 2022-07-20 10:30:00 2022-07-20 10:51:01 Office Visit Rey Ortiztanmarietta [facility] BUILDING 1.2.840.114 350.1.13.10 4.2.7.2.686 [id number] [facility] 2022-07-20 09:30:00 2022-07-20 10:14:13 Office Visit [facility] 1.2.840.114 350.1.13.10 4.2.7.2.686 [id number] [facility] 2022-07-04 12:13:54 2022-07-04 23:59:00 Outpatient R UNKNOWN, ATTENDING [facility] [id number] [facility] 2022-07-04 12:13:54 2022-07-04 23:59:00 Hospital Encounter Unknown, Attending [facility] 1.2840.114 350.1.13.10 4.2.7.2.686 [id number] [facility] 2022-06-29 00:00:00 2022-06-29 00:00:00 Outpatient CASSIA PERDUE [facility] [id number] [facility] 2022-04-22 00:00:00 2022-04-22 00:00:00 Telephone Tennille Garcia [facility] N[facility] BUILD[facility] 1.2.840.114 350.1.13.10 4.2.7.2.686 [id number] [facility] 2022-04-22 00:00:00 2022-04-22 00:00:00 Patient Secure Msg Doctor Unassigned, [place] [facility] 1..840.114 350.1.13.10 4.2.7.2.686 [id number] [facility] 2022-04-21 10:30:00 2022-04-21 12:29:43 Outpatient KATIE REARDON [facility] [id number] [facility] 2022-04-21 10:30:00 2022-04-21 10:45:00 Office Visit Katie Cortez [facility] 1..840.114 350.1.13.10 4.2.7.2.686 [id number] [facility] 2022-04-21 09:00:00 2022-04-21 09:00:00 Outpatient MARITZA WELLS [facility] [id number] [facility] 2022-04-21 09:00:00 2022-04-21 09:00:00 Outpatient MARITZA WELLS [facility] [id number] [facility] 2022-04-20 14:30:00 2022-04-20 15:33:13 Office Visit Doron Ortiz [facility] BUILDING 1..840.114 350.1.13.10 4.2.7.2.686 [id number] [facility] 2022-04-20 14:30:00 2022-04-20 15:33:13 Outpatient R DORON ORTIZ OGECHUKWU [facility] [id number] [facility] 2022-04-15 09:37:22 2022-04-15 23:59:00 Outpatient R JOSETENNILLE [facility] [id number] [facility] 2022-04-15 12:20:00 2022-04-15 12:40:00 Urgent Care Mason Coronado, Attending [facility]?KENISHADasha [facility] 1..840.114 350.1.13.10 4.2.7.2.686 [id number] [facility] 2022-03-16 10:00:00 2022-03-16 10:00:00 Outpatient R JOSETENNILLE [facility] [id number] [facility] 2022-03-07 09:15:00 2022-03-07 23:59:00 Hospital Encounter Doron Ortiz [facility] 1..840.114 350.1.13.10 4.2.7.2.686 [id number] [facility] 2022-03-07 08:30:00 2022-03-07 09:03:55 Office Visit Doron Ortiz [facility] BUILDING 1..840.114 350.1.13.10 4.2.7.2.686 [id number] [facility] 2022-03-07 08:30:00 2022-03-07 09:03:55 Outpatient R DIANADORON OGECHUKWU [facility] [id number] [facility] 2022-03-07 00:00:00 2022-03-07 00:00:00 Orders Only Doctor Unassigned, [place] [facility] 1.84.114 350.1.13.10 4.2.7.2.686 [id number] [facility] 2022-03-02 08:00:00 2022-03-02 08:38:49 Outpatient R TENNILLE GARCIA [facility] [id number] [facility] 2022-03-02 08:00:00 2022-03-02 08:38:49 Office Visit Tennille Garcia [facility] 1.840.114 350.1.13.10 4.2.7.2.686 [id number] [facility] 2022-02-28 08:00:00 2022-02-28 08:00:00 Outpatient R JOSE [facility] [id number] [facility] 2022-02-23 00:00:00 2022-02-23 00:00:00 Patient Secure Msg Doctor Unassigned, [place] [facility] 1.84.114 350.1.13.10 4.2.7.2.686 [id number] [facility] 2022-02-23 00:00:00 2022-02-23 00:00:00 Transition of Care Vlad Huddleston 1.840.114 350.1.13.10 4.2.7.2.686 [id number] [facility] 2022-02-20 12:32:00 2022-02-22 17:50:00 Inpatient X VENECIA CALLOWAY [facility] [id number] [facility] 2022-02-20 12:32:00 2022-02-22 17:50:00 Hospital Encounter Rene Kay Venecia Calloway [facility] 1..840.114 350.1.13.10 4.2.7.2.686 [id number] [facility] 2022-02-20 10:00:00 2022-02-20 12:05:55 Outpatient R TRACEY CEDENO [facility] [id number] [facility] 2022-02-20 10:00:00 2022-02-20 12:05:55 Urgent Care Tracey Cedeno Unknown, Attending [facility] MEDICAL OFFICE BUILDING 1.840.114 350.1.13.10 4.2.7.2.686 [id number] [facility] 2022-02-08 10:40:00 2022-02-08 11:27:06 Outpatient R JERO PRINCESSJELENA [facility] [id number] [facility] 2022-02-08 10:40:00 2022-02-08 11:00:00 Urgent Care Meseret Nogueira Unknown, Attending [facility] MEDICAL OFFICE BUILDING 1.840.114 350.1.13.10 4.2.7.2.686 [id number] [facility] 2021-08-07 10:20:00 2021-08-07 10:53:57 Outpatient R MARIA DOLORES GAXIOLA [facility] [id number] [facility] 2021-08-07 10:20:00 2021-08-07 10:53:57 Urgent Care Amelia Garcia Kimberly J [facility] MEDICAL OFFICE BUILDING 1..840.114 350.1.13.10 4.2.7.2.686 [id number] [facility] 2021-08-05 20:42:00 2021-08-05 20:56:00 Emergency Kevin Goode [facility] 1.114 350.1.13.10 4.2.7.2.686 [id number] [facility] 2021-08-05 19:45:00 2021-08-05 20:06:37 Outpatient R MARIA DOLORES GAXIOLA [facility] ERT [id number] [facility] 2021-08-05 19:45:00 2021-08-05 20:05:00 Nurse Visit Nurse, Zuhair Salcedo [facility] Maria Dolores Gaxiola Belgica [facility]?KENISHADasha [facility]ILD[facility] 1.84114 350.1.13.10 4.2.7.2.686 [id number] [facility] 2021-08-05 19:45:00 2021-08-05 19:45:00 [facility] [id number] [facility] 2021-08-05 19:40:00 2021-08-05 19:40:00 Outpatient R DARRIAN GAXIOLABERLY [facility] [id number] [facility] 2021-08-05 00:00:00 2021-08-05 00:00:00 Orders Only Doctor Unassigned, [place] [facility] 1.114 350.1.13.10 4.2.7.2.686 [id number] [facility] 2021-07-27 08:30:00 2021-07-27 08:30:00 Outpatient MINESH DE LA FUENTE [facility] [id number] [facility] 2021-07-27 08:30:00 2021-07-27 08:30:00 Outpatient Ed[facility] [id number] [facility] 2021-07-26 12:00:00 2021-07-26 12:30:00 Office Visit Cassia Parker [facility] 1.84.114 350.1.13.10 4.2.7.2.686 [id number] [facility] 2021-07-26 12:00:00 2021-07-26 12:00:00 [facility] [id number] [facility] 2021-07-26 12:00:00 2021-07-26 12:00:00 Outpatient R [facility] [id number] [facility] 2021-04-20 08:00:00 2021-04-20 09:08:36 Outpatient R VASQUEZ BEARBETH [facility] [id number] [facility] 2021-04-20 08:00:00 2021-04-20 09:08:36 Office Visit Maritza Bear Dasha [facility] 1.2.840.114 350.1.13.10 4.2.7.2.686 [id number] [facility] 2021-04-20 08:00:00 2021-04-20 09:08:36 Outpatient R ZULMA BEARTH [facility] [id number] [facility] 2021-02-23 00:00:00 2021-02-23 00:00:00 Case Management Zulma Bearchauncey Lou [facility] 1.2.840.114 350.1.13.10 4.2.7.2.686 [id number] [facility] 2021-02-09 13:20:00 2021-02-09 13:20:00 Outpatient MINESH DE LA FUENTE [facility] [id number] [facility] 2021-02-09 13:11:36 2021-02-09 13:11:46 Imm/Inj Visit Nurse, Pepito Postephon Immunizatio Minesh Steward [facility] 1.2.840.114 350.1.13.10 4.2.7.2.686 [id number] [facility] 2021-01-28 08:11:17 2021-01-28 08:26:17 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, 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 Maritza Bear [facility] 1.2.840.114 350.1.13.10 4.2.7.2.686 [id number] [facility] 2021-01-28 08:00:00 2021-01-28 08:00:00 Outpatient MARITZA WELLS [facility] [id number] [facility] 2020-11-24 16:00:00 2020-11-24 16:00:00 Outpatient KATIE REARDON [facility] [id number] [facility] 2020-08-20 10:20:00 2020-08-20 10:20:00 Outpatient R [facility] [id number] [facility] 2020-06-30 17:40:00 2020-06-30 17:40:00 Outpatient LIAM ZUNIGA [facility] [id number] [facility] 2020-06-05 00:00:00 2020-06-05 00:00:00 Outpatient JERRY LEY [facility] [id number] [facility] 2020-05-29 10:30:00 2020-05-29 10:30:00 Outpatient JERRY LEY [facility] [id number] [facility] 2020-05-19 09:50:00 2020-05-19 09:50:00 Outpatient LILLI POOLE [facility] [id number] [facility] 2020-04-21 08:40:00 2020-04-21 08:40:00 Outpatient LILLI POOLE [facility] [id number] [facility] 2020-04-20 08:00:00 2020-04-20 08:00:00 Outpatient MARITZA WELLS [facility] [id number] [facility] 2020-01-17 09:15:00 2020-01-17 09:15:00 Outpatient R MARITZA BEAR [facility] [id number] [facility] 2019-06-07 00:00:00 2019-06-07 00:00:00 Orders Only Doctor Unassigned, [place] [facility] 1.84.114 350.1.13.10 4.2.7.2.686 [id number] [facility] 2019-06-07 00:00:00 2019-06-07 00:00:00 Telephone Jerry Ibarra [facility] 1.840.114 350.1.13.10 4.2.7.2.686 [id number] [facility] 2019-05-30 07:58:23 2019-05-30 23:59:00 Outpatient R JERRY IBARRA [facility] [id number] [facility] 2019-05-30 07:58:00 2019-05-30 23:59:00 Hospital Encounter Jerry Ibarra Manuel [facility] 1.840.114 350.1.13.10 4.2.7.2.686 [id number] [facility] 2019-05-24 09:00:00 2019-05-24 10:12:14 Outpatient R JERRY IBARRA [facility] [id number] [facility] 2019-05-24 08:51:18 2019-05-24 10:12:14 Office Visit Jerry Ibarra [facility] 1.840.114 350.1.13.10 4.2.7.2.686 [id number] [facility] 2019-04-18 07:00:00 2019-04-18 08:01:09 Outpatient R MARITZA BEAR [facility] [id number] [facility] 2017-07-04 03:30:00 2017-07-04 03:30:00 Outpatient Raju[facility]P [facility] [id number] [facility] Results Test Description Test Time Test Comments Results Resul t Comments Source XR Hips 2 vw left 2024-05-23 19:21:51 EXAM: XR HIPS 2 VW LEFT HISTORY: S/P LT THR COMPARISON: Radiographs, 02/19/2024. FINDINGS: Radiographs of the left hip demonstrate a left total hip arthroplasty inanatomic alignment without acute periprosthetic fracture or lucency.Unchanged severe right hip joint osteoarthrosis. Diffuse osteopenia.Bilate ral sacroiliac degenerative changes. Lower lumbar spondyloticchange s. Degenerative changes of the pubic symphysis are seen. Healed leftinferior pubic ramus fracture. [facility] DEXA AXIAL (HIP AND SPINE) 2024-02-15 16:27:20 HISTORY: Osteoporosis. TECHNIQUE: Bone density estimation is done using DEXA scan, over the righthip and lumbar spines. FINDINGS: Details of the results are enclosed for your review. The summaryis as follows. RIGHT HIP:BMD value is 0.729 gm/sq cm, with T-score of -2.2. Estimated BMD in theneck is 0.783 g/sq cm with T score of -1.8. Slight further loss of totalbone mineral density noted since 2022. LUMBAR SPINES:Average BMD value from L1 through L4 is 0.986 gm/sq cm, with T-score - 1.7.Significant loss of bone mineral density noted since 11/24/2022 study. CONCLUSION: Osteopenia. ASSESSMENT: WHO-definitions: T-score normal: +/- 1 SD around the meanosteopenia: >1 to 2.4 SD below the meanosteoporosis: >2.5 SD below the meanFracture risk doubles for each 1.5 SD below the mean. [facility] XR HIPS 2 VW LEFT 2024-01-09 04:48:05 XR HIPS 2 VW LEFT HISTORY: ?Postop Total Hip ? COMPARISON: 12/19/2023 FINDINGS: Intact arthroplasty. Alignment is near-anatomic. No acute fracture orloosening. Soft tissue edema and emphysema, commensurate with postoperativestat e. [facility] [id number] 13:06:17* Test Item Value Reference Range Interpretation [...] 32.9 g/dL 31.6-35.1 RDW-SD (test code = 28467-5) 43.2 fL 39.0-49.9 RDW-CV (test code = 788-0) 13.1 % 12.0-15.5 PLT (test code = 777-3) 286 166-358 MPV (test code = 34559-6) 9.4 fL 9.5-12.9 L NRBC/100 WBC (test code = 8208297674) 0.0 0.0-10.0 NRBC x10^3 (test code = 6485085152) See_Comment [Automated messa ge] The system which generated this result transmitted reference range: 10*3/?L. The reference range was not used to interpret this result as normal/abnormal. GRAN MAT (NEUT) % (test code = 770-8) 71.3 % IMM GRAN % (test code = 2742571465) 0.30 % LYMPH % (test code = 736-9) 14.4 % MONO % (test code = 5905-5) 11.0 % EOS % (test code = 713-8) 2.3 % BASO % (test code = 706-2) 0.7 % GRAN MAT x10^3(ANC) (test code = 7977046093) 4.98 10*3/uL 1.88-7.09 IMM GRAN x10^3 (test code = 5919144650) 0.00-0.06 LYMPH x10^3 (test code = 731-0) 1.01 10*3/uL 1.32-3.29 L MONO x10^3 (test code = 742-7) 0.77 10*3/uL 0.33-0.92 EOS x10^3 (test code = 711-2) 0.16 10*3/uL 0.03-0.39 BASO x10^3 (test code = 704-7) 0.05 10*3/uL 0.01-0.07 Lab Interpretation (test code = 71876-4) [facility] This is a pre-surgical type and screen. ONCE [id number] 13:04:00* Test Item Value Reference Range Interpretation Comme nts ABO & RH (test code = 20) O POSITIVE IAT (test code = 1185) Negative [facility] This is a pre-surgical type and screen. ONCE [id number] 13:04:00* Test Item Value Reference Range Interpretation Comme nts ABO & RH (test code = 20) O POSITIVE IAT (test code = 1185) Negative [facility] [id number] 22:10:11EXAM: XR HIPS 3 VW LEFT HISTORY: LT THR COMPARISON: Left hip radiographs, 05/25/2023. FINDINGS: Radiographs of the left hip demonstrate no acute fracture or dislocation.There is progressive severe bilateral hip joint osteoarthrosis, rightgreater than left. Lower lumbar degenerative disc disease. Pubic symphysisdegenerative changes are noted. Osseous demineralization is noted. [facility] TIME OR (NON-REPORTABLE)2023-09-18 15:12:04 These images do not require a Radiology diagnostic report.[facility] TIME OR (NON-REPORTABLE)2023-09-18 15:12:04These images do not require a Radiology diagnostic report.[facility] [id number] 15:23:53XR HIPS 2 VW LEFT and AP pelvis. INDICATION: hip pain ? COMPARISON: 11/24/20 FINDINGS:No acute fracture or dislocation.Advanced degenerative changes of bilateral hip joints with primarily axialmigration of the femoral heads, subchondral sclerosis and osteophytosis.Additional degenerative changes at the bilateral sacroiliac joints andpubic symphysis. [facility] [id number] 19:50:23* Test Item Value Reference Range Interpretation Comme nts TROPONIN I (test code = 3931114642) 0.034 ng/mL <=0.034 MADAY (test code = [...] of biotin. Lab Interpretation (test code = 23007-6) Normal [facility] [id number] 17:30:40* Test Item Value Reference Range Interpretation Comme nts TROPONIN I (test code = 9510966922) 0.035 ng/mL <=0.034 H MADAY (test code [...] of biotin. Lab Interpretation (test code = 74815-5) [facility]normal [id number] 17:27:39* Test Item Value Reference Range Interpretation Comme nts NT-proBNP (test code = 6482913579) 126 pg/mL <=450 MADAY (test code = MADAY) Biotin has been reported to cause a negative bias, interpret results relative to patient's use of biotin. Lab Interpretation (test code = 67524-9) Normal [facility] THRMPLAS [id number] 17:26:58* Test Item Value Reference Range Interpretation Comme nts APTT Patient (test code = 3173-2) 28 See_Comment [Automated message] The system which generated this result transmitted reference range: 23 - 38 Seconds. The reference range was not used to interpret this result as normal/abnormal. MADAY (test code = MADAY) The [facility] patient population mean normal value for aPTT is 30 seconds. Lab Interpretation (test code = 17818-0) Normal [facility] / [id number] 17:24:57* Test Item Value Reference Range Interpretation [...] the indications. Lab Interpretation (test code = 91400-3) Normal [facility]23[facility] 17:19:19* Test Item Value Reference Range Interpretation Comme nts MAGNESIUM (test code = 7869989663) 2.0 mg/dL 1.7-2.4 Lab Interpretation (test cod e = 52541-0) Normal [facility]. METABOLIC PANEL (53735)2022-10-16 17:18:59* Test Item Value Reference Range Interpretation Comme nts NA (test code = 8734621653) 138 mmol/L 135-145 K (test code = 0858442727) 4.1 mmol/L 3.5-5.0 CL (test code = 6213592642) 102 mmol/L 98-108 CO2 TOTAL (test code = 6535970817) 27 mmol/L 23-31 AGAP (test code = 6276907840) 9 2-16 BUN (test code = 7784867011) 23 mg/dL 7-23 GLUCOSE (test code = 3287679943) 159 mg/dL 70-110 H CREATININE (test code = 3220371644) 0.65 mg/dL 0.50-1.04 TOTAL BILI (test code = 8439122914) 0.6 mg/dL 0.1-1.1 CALCIUM (test code = 8661704022) 9.5 mg/dL 8.6-10.6 T PROTEIN (test code = 1445847355) 6.8 g/dL 6.3-8.2 ALBUMIN (test code = 1646249314) 4.2 g/dL 3.5-5.0 ALK PHOS (test code = 0151023584) 83 U/L 34-122 ALTv (test code = 1742-6) 28 U/L 5-35 AST(SGOT) (test code = 9154668209) 33 U/L 13-40 eGFR (test code = 3435570862) 87.0 mL/min/1.73m2 MADAY (test code = MADAY) [...] imaging tests). Lab Interpretation (test code = 56011-3) Abnormal [facility] WITH [id number] 17:06:53* Test Item Value Reference Range Interpretation Comme nts WBC (test code = 6690-2) 7.26 See_Comment [Automated [employer]] The system which generated this result transmitted reference range: 4.30 - 11.10 10*3/?L. The reference range was not used to interpret this result as normal/abnormal. RBC (test code = 789-8) 4.58 See_Comment [Automated [employer]] The system which generated this result [...] 33.9 g/dL 31.6-35.1 RDW-SD (test code = 62026-6) 49.8 fL 39.0-49.9 RDW-CV (test code = 788-0) 14.9 % 12.0-15.5 PLT (test code = 777-3) 240 See_Comment [Automated [employer]] The system which generated this result transmitted reference range: 166 - 358 10*3/?L. The reference range was not used to interpret this result as normal/abnormal. MPV (test code = 48015-0) 10.2 fL 9.5-12.9 NRBC/100 WBC (test code = 2019183528) 0.0 See_Comment [Automated [employer] ssage] The system which generated this result transmitted reference range: 0.0 - 10.0 /100 WBCs. The reference range was not used to interpret this result as normal/abnormal. NRBC x10^3 (test code = 9182769768) See_Comment [Automated [employer]] The system which generated this result transmitted reference range: 10*3/?L. The reference range was not used to interpret this result as normal/abnormal. GRAN MAT (NEUT) % (test code = 770-8) 74.2 % IMM GRAN % (test code = 7952041590) 0.10 % LYMPH % (test code = 736-9) 15.6 % MONO % (test code = 5905-5) 7.6 % EOS % (test code = 713-8) 1.8 % BASO % (test code = 706-2) 0.7 % GRAN MAT x10^3(ANC) (test code = 3516648970) 5.39 10*3/uL 1.88-7.09 IMM GRAN x10^3 (test code = 7395903303) 0.00-0.06 LYMPH x10^3 (test code = 731-0) 1.13 10*3/uL 1.32-3.29 L MONO x10^3 (test code = 742-7) 0.55 10*3/uL 0.33-0.92 EOS x10^3 (test code = 711-2) 0.13 10*3/uL 0.03-0.39 BASO x10^3 (test code = 704-7) 0.05 10*3/uL 0.01-0.07 Lab Interpretation (test code = 83287-0) Abnormal [facility] Hospital[facility]an[facility]horacic echo (TTE)2022-02-21 22:50:22* Test Item Value Reference Range Interpretation Comme nts Height (test code = 0004675332) in Weight (test code = 8714415387) lbs Systolic BP (test code = 6806159232) mmHg Diastolic BP (test code = 7517707197) mmHg Heart Rate (test code = 8140110215) bpm BSA (test code = 8491900764) 1.37 m2 Ao root diam (test code = 0266845802) 3.50 cm Aortic root (test code = 0533570449) 3.5 cm Ao root annulus (test code = 0193991853) 3.5 cm LVOT diameter (test code = 5118238703) 1.86 cm LVOT area (test code = 5766366534) 2.70 cm2 LVIDD (test code = 3399681298) 4.00 cm Left Ventricular End Diastolic Volume by Teichholz Method (test code = 3023054) 71.7 mL IVS (test code = 8847868610) 0.98 cm Interventricular Septum Diastolic Thickness by 2D (test code = 5672945) 0.98 cm LVPWD (test code = 4530521973) 0.98 cm PW (test code = 4685672528) 0.98 cm 0.6-1.1 EF(Teich) (test code = 7127700308) 61.40 % LVIDS (test code = 2846107231) 2.70 cm Left Ventricular End Systolic Volume by Teichholz Method (test code = 8738135) 27.7 mL FS (test code = 0254686377) 33 % EF - 2D (test code = 38644338) 61.40 % LA size (test code = 7521229646) 2.06 cm TR Peak Frank (test code = 1190471220) 246.0 cm/s Triscuspid Valve Regurgitation Peak Gradient (test code = 4400292411) mmHg LAV(MOD-sp4) (test code = 2081027976) 32.80 mL E wave decelartion time (test code = 6267766739) 0.19 s MV stenosis pressure 1/2 time (test code = 3524476272) 58.0 ms MV Peak E Frank (test code = 8939260061) 70.6 cm/s MV Peak A Frank (test code = 4266006106) 53.6 cm/s E/A ratio (test code = 2639016443) ratio MR max PG (test code = 8184073456) 125.60 mm[Hg] MR max frank (test code = 1231450626) 560.00 cm/s Mr max frank (test code = 7512656889) 560.0 m/s MV Prop V (test code = 1216980359) 73.30 cm/s MV E/e' septal (test code = 0445295470) 9.9 cm/s Tapse (test code = 4989631606) 2.10 cm LVOT stroke volume (test code = 3344009727) 46.30 cm3 LVOT peak frank (test code = 1326260794) 91.7 cm/s LVOT mn grad (test code = 7504110680) mmHg AV LVOT peak gradient (test code = 0405649450) mmHg LVOT peak VTI (test code = 5776182027) 17.1 cm LV V1 mean (test code = 3721210562) 65.70 cm/s Aortic valve mean velocity (test code = 5455973547) 112.3 cm/s Ao peak frank (test code = 1528723263) 159.2 cm/s Ao VTI (test code = 1920184329) 27.3 cm AV area by cont VTI (test code = 3112722770) 1.7 cm2 AV area peak frank (test code = 8149641109) 1.6 cm2 Ao max PG (test code = 8718262761) 10.10 mm[Hg] AV peak gradient (test code = 7817256266) mmHg AV valve area (test code = 6408046293) 1.70 cm2 AV mean gradient (test code = 3914997374) mmHg AV regurgitation pressure 1/2 time (test code = 8784046161) 640.5 ms AI dec slope (test code = 0110893707) 201.20 cm/s2 AI max frank (test code = 1170767507) 439.90 cm/s AI max PG (test code = 9440109216) 77.40 mm[Hg] Radiology Study observation (narrative) (test code = 81571-7) MADAY (test code = MADAY) ?Left?Ventricle: Left [...] 2D, color flow Doppler and spectral Doppler. [facility] HospitalGLYCOSYLATED HEMOGLOBIN (A1C)2022-02-21 02:33:13* Test Item Value Reference Range Interpretation Comme nts HGB A1C (test code = 4548-4) 5.8 % 4.0-5.7 H MADAY (test code = MADAY) Reference RangesNormal: <5.7%Prediabetes: 5.7 - 6.4%Diabetes: > 6.5% Lab Interpretation (test code = 00957-5) Abnormal [facility] HospitalTROPONIN [id number] 19:32:09* Test Item Value Reference Range Interpretation Comments TROPONIN I (test code = 0415257027) 0.057 ng/mL See_Comment H [Automated message] The [...] of biotin. Lab Interpretation (test code = 65268-0) Abnormal [facility]. METABOLIC PANEL (36619)2022-02-20 19:20:46* Test Item Value Reference Range Interpretation Comme nts NA (test code = 7674978598) 138 mmol/L 135-145 K (test code = 2055713085) 4.8 mmol/L 3.5-5.0 CL (test code = 6959552927) 104 mmol/L 98-108 CO2 TOTAL (test code = 6074531164) 28 mmol/L 23-31 AGAP (test code = 4061764264) 2-16 BUN (test code = 8740756625) 23 mg/dL 7-23 GLUCOSE (test code = 3978629692) 65 mg/dL 70-110 L CREATININE (test code = 4594985813) 0.67 mg/dL 0.50-1.04 TOTAL BILI (test code = 2969783143) 0.5 mg/dL 0.1-1.1 CALCIUM (test code = 4811180038) 9.2 mg/dL 8.6-10.6 T PROTEIN (test code = 8500653419) 6.4 g/dL 6.3-8.2 ALBUMIN (test code = 7015543944) 4.1 g/dL 3.5-5.0 ALK PHOS (test code = 4673223058) 67 U/L 34-122 ALTv (test code = 1742-6) 33 U/L 5-35 AST(SGOT) (test code = 0835010411) 45 U/L 13-40 H eGFR (test code = 5642949786) mL/min/1.73m2 MADAY (test code = MADAY) Association [...] imaging tests). Lab Interpretation (test code = 82124-7) Abnormal [facility] HospitalPOCT SARS-COV-2 ANTIGEN (BINAX NOW)2022-02-20 19:18:00* Test Item Value Reference Range Interpretation Comme [facility] POCT SARS-COV-2 ANTIGEN (radha t code = 41968-7) Positive Not Detected A On board controls acceptable with C Line (test code = 3574) Yes Lab Interpretation (test cod e = 89997-6) Abnormal [facility] WITH [id number] 19:07:24* Test Item Value Reference Range Interpretation Comme [facility] WBC (test code = 6690-2) See_Comment [Automated [employer]] The system which generated this result transmitted reference range: 4.30 - 11.10 10*3/?L. The reference range was not used to interpret this result as normal/abnormal. RBC (test code = 789-8) See_Comment [Automated [employer]] The system which generated this result transmitted [...] 33.4 g/dL 31.6-35.1 RDW-SD (test code = 63842-7) 45.7 fL 39.0-49.9 RDW-CV (test code = 788-0) 13.4 % 12.0-15.5 PLT (test code = 777-3) See_Comment [Automated messa ge] The system which generated this result transmitted reference range: 166 - 358 10*3/?L. The reference range was not used to interpret this result as normal/abnormal. MPV (test code = 59642-1) 10.8 fL 9.5-12.9 NRBC/100 WBC (test code = 2760692653) See_Comment [Automated [employer] ssage] The system which generated this result transmitted reference range: 0.0 - 10.0 /100 WBCs. The reference range was not used to interpret this result as normal/abnormal. NRBC x10^3 (test code = 3447308238) See_Comment [Automated messa ge] The system which generated this result transmitted reference range: 10*3/?L. The reference range was not used to interpret this result as normal/abnormal. GRAN MAT (NEUT) % (test code = 770-8) 61.2 % IMM GRAN % (test code = 4458017749) 0.20 % LYMPH % (test code = 736-9) 18.2 % MONO % (test code = 5905-5) 18.7 % EOS % (test code = 713-8) 1.2 % BASO % (test code = 706-2) 0.5 % GRAN MAT x10^3(ANC) (test code = 5547123764) 3.70 10*3/uL 1.88-7.09 IMM GRAN x10^3 (test code = 7477949801) 0.00-0.06 LYMPH x10^3 (test code = 731-0) 1.10 10*3/uL 1.32-3.29 L MONO x10^3 (test code = 742-7) 1.13 10*3/uL 0.33-0.92 H EOS x10^3 (test code = 711-2) 0.07 10*3/uL 0.03-0.39 BASO x10^3 (test code = 704-7) 0.03 10*3/uL 0.01-0.07 Lab Interpretation (test code = 69021-2) Abnormal [facility] MOLECULAR [id number] 17:51:19* Test Item Value Reference Range Interpretation Comme nts POCT Molecular Strep (test c ode = 20359-1) Negative Negative Lab Interpretation (test cod e = 61055-8) Normal [facility] MOLECULAR [id number] 17:51:19* Test Item Value Reference Range Interpretation Comme nts POCT Molecular Strep (test c ode = 62519-8) Negative Negative Lab Interpretation (test cod e = 36964-7) Normal [facility] MOLECULAR [id number] 17:39:16* Test Item Value Reference Range Interpretation Comme nts POCT Molecular FluA (test co de = 29191-7) Negative Negative POCT Molecular FluB (test co de = 68238-6) Negative Negative Lab Interpretation (test cod e = 76148-3) Normal [facility] MOLECULAR [id number] 17:39:16* Test Item Value Reference Range Interpretation Comme nts POCT Molecular FluA (test co de = 66785-1) Negative Negative POCT Molecular FluB (test co de = 75609-7) Negative Negative Lab Interpretation (test cod e = 94983-5) Normal [facility] Consult Notes Date/Time Note Provider Source 2024-01-08 12:28:33 Associated Order(s): CONSULT DISTANCE EDUCATION TEACHER-ADULT CM provided patient with [address] [place] [address] and set up home health with [facility]. Blaise Luna RN, BSN [facility] ADC Bag Filler Machine Operator O [phone] F [phone] [id number] [phone] Blaies Luna RN [facility] Notes Date/Time Note Provider Source 2024-05-28 16:15:34 Orders and Demos [facility] [phone] F CONSULTANT Lisa Carreno RN [facility] 2024-05-28 15:29:30 Please resend physical therapy order providers signature was not on the original one sent to [facility] ISH Bear [facility] 2024-05-13 15:24:18 Spoke with NurseJacqueline, and relayed information per Dr. Mcdonough. Nursed voiced understanding. F CONSULTANT Andria Vora RN [facility] 2024-05-13 15:23:16 Spoke with Nurse, Jacqueline, and relayed information per Dr. Mcdonough. Nursed voiced understanding. F CONSULTANT Andria Vora RN [facility] 2024-05-13 08:40:36 Jacqueline with [facility] is calling asking to confirm diagnosis for the pt. ISH Camara [facility] 2024-05-10 12:42:15 I do not see that diagnosis listed [facility] 2024-05-10 11:10:11 Francisca with [facility] was notified of all and verbalized understanding. ISH Cardenas COMMUNITY MANAGER [facility] 2024-05-09 14:26:35 Please review and advise. DICKSON 10/26/23 NOV 05/20/24 ISH Cardenas COMMUNITY MANAGER [facility] 2024-05-09 10:39:50 Nurse Jacqueline, pt's Home Health Nurse calling in to confirm diagnosis for pt. Wanting to confirm if pt has an alzheimer's / dementia diagnosis Please address and advise Callback for Nurse Jacqueline - [phone](home) F CONSULTANT Chucho Moulton [facility] 2024-05-09 10:34:31 We will follow as long as we are not managing IV medications. Best, Dr. Mcdonough [facility] 2024-05-09 08:14:59 Please review and advise. DICKSON 10/26/23 NOV 05/20/24 [facility] 2024-05-08 15:29:48 Jacqueline with [facility] is wanting to know if Dr. Mcdonough will follow patient for home health orders ISH Duvall [facility] 2024-05-02 09:49:42 Called patient, no answer. Left voicemail to return call to schedule an appointment to discuss results. F CONSULTANT Emily Soliz [facility] 2024-05-01 10:01:28 Pt needing to come in for visit with Stacey to go over results. F CONSULTANT Tracey Puga RN [facility] 2024-03-19 16:10:42 Spoke with Chip, awaiting fax for plan of care. F CONSULTANT Lisa Carreno RN [facility] 2024-03-19 15:51:26 Demian from [facility] was calling regrding plan of care. Please give them a call to let them know when this will be signed ISH Mancera [facility] 2024-03-19 09:29:42 nurse Breanne notified of all and verbalized understanding. No further needs were voiced at this time. ISH Cardenas LVN [facility] 2024-03-18 12:56:15 I will send hydrocortisone cream. This must be done sparingly. Use benefiber (or fiber supplement) and try sitz baths as well. If it worsens, let me know and we can do a referral to the rectal surgery team. Dr. Tihago Hassan [facility] 2024-03-18 10:24:43 nurse Raymundo stated that patient has already tried Prep H x1 week without any effectiveness. Please review and advise [facility] 2024-03-13 22:41:20 Let's try preparation H first OTC. Dr. Thiago Hassan [facility] 2024-03-13 13:18:25 Please review and advise. 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 Breanne would like something prescribed for the patient ISH Duvall [facility] 2024-02-20 14:12:54 Received PT re- assessment forms from [facility], forms placed in providers box for review, signature needed. ISH Richardson [facility] 2024-02-16 14:37:15 Post ED Visit Outreach Call 02/16/2024 Ghazala Orozco [id number] Ghazala Orozco is a 83 year old /White female was admitted on 02/15/2024 to [facility] She was discharged on 01/08/24 with discharge disposition of HR- Routine Discharge. High ED Utilization (number of ER visits over past 90 days) N/A ED Diagnosis: left hip pain Avoidable ED Visit? no Name of PCP- Dr. Susan Mcdonough Date of Last Office Visit- 10/26/2023 Are you having any symptoms? No.per daughter, "she's doing very good. I got her medicine. She's walking around." Do you have all of your medications? yes Have you scheduled a follow up appointment with your physician? yes Do you need assistance with scheduling a follow up appointment? N/A Do you have transportation to your appointment? yes Do you have any questions or concerns? no Interventions: Discuss ED alternatives for avoidable ED (urgent care, PCP appointment). Establish care with [facility] PCP (if no PCP) Confirm follow up visit with established PCP. 4) Consult Ambulatory Medical Claims Representative as needed. 5) Communicate with physician's office via phone or in basket message as needed. Erasto Trent RN [facility] 2024-02-14 15:45:49 Routing to PSS to schedule appointment. Meron Last 02/14/2024 3:46 PM [facility] 2024-02-14 14:40:50 Please have her come in ORT-ORTHOPAEDIC SURGERY STAFF [facility] 2024-02-14 12:26:45 Gregoria with [facility] is calling to inform that the patient had a fall 02/07/2024 Pt was seen at [facility] on left hip. Patient is having pain and she is taking aleve 2X a day. Gregoria stated the patients pain is at a 7. She is wanting to know if its okay to continue to take Aleve. Gregoria with wanting to know if the patient needs to come and be seen. Please advise. Maritza Santana [facility] 2024-01-31 11:10:49 Gregoria with [facility] [phone] is with patient that has had hip replacement surgery and she has ran out of her hydrocodone pain medicine and is wanting to know if patient can take Tylenol 500mg until her medicine is refilled? Karin Gomez [facility] 2024-01-09 16:13:51 Spoke with patients daughter, Alex, Patient post day 1 after hip replacement, she stated that the medication HYDROcodone-acetaminophen 5-325 mg tablet was called into [facility]. When she went to pick it up she was told that they did not have the medication in stock. Daughter called [facility] in [place] they too did not have any stock. Daughter also called [facility] in [place], also none in stock. She then called [facility] in [place] they had stock available. She is asking if we can send the RX to [facility]. Due to this being a controlled substance an MD would have to send it. Dr Rosario has already left for the day. Attempted to contact via Cell phone, message left. Alex was notified of the above information and informed that it could be tomorrow before new Rx is called in. She voiced understanding. Andria Vora RN [facility] 2024-01-09 11:57:09 Pt daughter is requesting RX to be sent to [facility] in [place]. DOS:01/08/2024 -Total Knee Replacement HYDROcodone-acetaminophen 5-325 mg tablet . Maritza Santana [facility] 2024-01-08 10:25:56 Summary: Family Surgical Update Patient's daughter, called on cell phone to provide surgery status update. No questions at this time. Tracey Gputa RN [facility] 2024-01-08 09:51:35 BRIEF OPERATIVE NOTE Date [...] Implant Name Type Inv. Item Serial No. Supervisor Of Officials Lot No. LRB No. Used Action SCREW BONE TRLG 30MM SLF TAP 6.5MM ACTB CORTCL STERIL #[id number] - SN/A SCREW SCREW BONE TRLG 30MM SLF TAP 6.5MM ACTB CORTCL STERIL #[id number] N/A [employer] [id number] Left 1 Implanted SHELL ACTB G7 PPS 54MM LIMIT HOLE CLR CD F HMSPHR OFFSET HIP #[id number] - SN/A Joint Prosthesis SHELL ACTB G7 PPS 54MM LIMIT HOLE CLR CD F HMSPHR OFFSET HIP #[id number] N/A [employer] [id number] Left 1 Implanted SCREW BONE TRLG 20MM SLF TAP 6.5MM HIP ACTB [employer]ERIL #[id number] - SN/A SCREW SCREW BONE TRLG 20MM SLF TAP 6.5MM HIP ACTB STERIL #[id number] N/A [employer] [id number] Left 1 Implanted LINER ACTB 40MM F LNGVT G7 STERIL LF LUMEN HIP #[id number] - SN/A Joint Prosthesis LINER ACTB 40MM F LNGVT G7 STERIL LF LUMEN HIP #[id number] N/A [employer] [id number] Left 1 Implanted STEM FMRL 107.5MM 11MM 133D STD OFFSET TAP PRS FIT TI PPS #[id number] - SN/A Joint Prosthesis STEM FMRL 107.5MM 11MM 133D STD OFFSET TAP PRS FIT TI PPS #[id number] N/A [employer] [id number] Left 1 Implanted HEAD FMRL 40MM -3MM OFFSET HIP ACTB COCR G7 TYPE 1 #[id number] - SN/A HEAD FMRL 40MM -3MM OFFSET HIP ACTB COCR G7 TYPE 1 #[id number] N/A [employer] [id number] Left 1 Implanted Patient's Condition: good Findings: above Any other important information: none Please see dictated operative report for additional detail. [facility] 2024-01-05 14:21:09 Patients daughter has been contacted by the surgical center with the time of the arrival of the surgery. Janessa Luna [facility] 2024-01-05 12:12:11 Ghazala Orozco is a 83 year old female Calling to se what time she needs to arrive by for surgery on 01/07. Leave VM if Pt doesn't answer Kriss Rider [facility] 2024-01-02 09:15:00 Images from the original note were not included. Venipuncture collection performed by clean technique on the left anticubitus. Total of 1 attempts were made. Slight pressure and a bandage/dressing were applied to the site(s). The patient experienced no complications. The following specimens were processed according to instructions and sent to [facility] laboratories per lab order on 12/18/26: LT BLUE SST 1 RED LAV 2 PPT DK GREEN (LiHep) DK GREEN (SodH) JOHNSON DK BLUE (K2) DK BLUE (S) ACD Blood Culture NIPT/NTD [facility] 2024-01-02 09:15:00 Images from the original note were not included. Patient has been identified by and name and was provided with cup, antiseptic towelette, and clean catch instructions. 1 urine specimen(s) sent. Unpreserved 1 Urine Culture Aptima tube Other urine Ofe Sahu [facility] 2024-01-01 14:01:28 Images from the original note were not included. Your procedure is at [facility] on 01/08/24. The address is [address] [place] [address], [id number]. [facility] nursing staff will call you [...] no further questions at this time. 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 ORT-ORTHOPAEDIC SURGERY STAFF [facility] 2023-09-12 12:29:57 Images from the original note were not included. Your procedure is at [facility] on 09/18/23. The address is [address] [place] [address], [id number]. [facility] nursing staff will call you [...] questions at this time. Shelby Roberts RN [facility] 2023-09-12 12:15:00 Images from the original note were not included. Venipuncture collection performed by clean technique on the left anticubitus. Total of 2 attempts were made. Slight pressure and a bandage/dressing were applied to the site(s). The patient experienced no complications. The following specimens were processed according to instructions and sent to [facility] laboratories per lab order on today: LT BLUE SST RED LAV 2 PPT DK GREEN (LiHep) DK GREEN (SodH) JOHNSON DK BLUE (K2) DK BLUE (S) ACD Blood Culture NIPT/NTD Patient has been identified by and name and was provided with cup, antiseptic towelette, and clean catch instructions. 2 urine specimen(s) sent. Unpreserved 2 Urine Culture Aptima tube Other urine [facility] 2023-05-31 09:45:00 Images from the original note were not included. Venipuncture collection performed by clean technique on the right anticubitus. Total of 1 attempts were made. Slight pressure and a bandage/dressing were applied to the site(s). The patient experienced no complications. The following specimens were processed according to instructions and sent to [facility] laboratories per lab order on 05/31/2023: LT BLUE SST 1 RED LAV 1 PPT DK GREEN (LiHep) DK GREEN (SodH) JOHNSON DK BLUE (K2) DK BLUE (S) ACD Blood Culture NIPT/NTD [facility] 2023-05-30 10:04:43 Called patient but no answer so LVM to call back or send a [employer] message. Meron Last 05/30/2023 10:05 AM F CONSULTANT Meron Last [facility] 2023-05-29 10:34:39 Patient want to discuss pre op has questions about test that she needs. F CONSULTANT Chrystal Do [facility] 2023-05-29 09:50:02 Pre op orders.Meron Last 05/29/2023 9:53 AM [facility] 2023-05-23 11:46:59 Form signed, faxed and confirmation received. F CONSULTANT Tracey Tobin MA [facility] 2023-05-23 11:14:21 Last clinical notes faxed and confirmation received. ISH Tobin MA [facility] 2023-05-23 10:56:04 Ghazala Orozco is a 83 year old female and Marco with [facility] is calling needing the last 4 clinical notes for the pts HIPAA compliant form that was sent over previously. ISH Camara [facility] 2023-05-22 16:21:51 Referral has been placed to orthopedic surgery. [facility] 2023-05-22 16:11:53 Pt has an appt to see Dr. Rosario on 05/25. Pt is needing referral and auth because of the [employer] insurance ISH Lama [facility] 2023-05-22 13:33:02 Form placed in provider folder for review. ISH Tobin MA [facility] 2023-05-22 12:24:26 Images from the original note were not included. ISH Vaz [facility] 2022-12-27 09:59:28 Formatting of this n ote might be different from the original. Spoke with patient and informed of lab results. Patient is wanting to change prescription to [facility] since [facility] in [place] no longer take her insurance. Patient had no further question. Medication will be sent to pharmacy. [facility] 2022-12-26 16:54:32 Formatting of this n ote might be different from the original. Attempted to reach pt at [phone], no answer and no voicemail available. Amaya Salas RN [facility] 2022-12-23 16:23:11 Formatting of this n ote might be different from the original. Pt calling wanting a nurse to call her back regarding her lab results. Kriss Rider [facility] 2022-12-23 14:06:34 Formatting of this n ote might be different from the original. Patient called asking to speak to nurse regarding her test result. Please advise Alex Potts [facility] 2022-12-21 11:15:00 Formatting of this n ote is different from the original. Images from the original note were not included. Venipuncture collection performed by clean technique on the left anticubitus. Total of 1 attempts were made. Slight pressure and a bandage/dressing were applied to the site(s). The patient experienced no complications. The following specimens were processed according to instructions and sent to [facility] laboratories per lab order on 12/21/2022 : LT BLUE SST 3 RED LAV 2 PPT DK GREEN (LiHep) DK GREEN (SodH) JOHNSON DK BLUE (K2) DK BLUE (S) ACD Blood Culture NIPT/NTD T [facility]
--- NOTE | 2024-05-29 12:17 | RAD REPORT ---
EXAM: CT brain without contrast HISTORY: Dizziness and headaches COMPARISON: 2023 TECHNIQUE: Multiple contiguous axial images were obtained and a CT of the brain without contrast. Sagittal and coronal reformats were performed. Automated exposure control, adjustment of the mA and/or kV according to patient size, and/or itera tive reconstruction. Unless otherwise specified, incidental findings do not require dedicated imaging follow-u FINDINGS: An intracranial bleed is not seen Ventricles are normal caliber No extra-axial fluid collection noted Moderate low-density paraventricular, deep and subcortical white matter probably ischemic changes secondary to small vessel disease. No fluid within the visualized sinuses or mastoids noted. IMPRESSION: No acute intracranial abnormality noted. If the patient's symptoms persist MRI of the brain would be recommended. from the emergency room was notified at 11:57 AM 05/29/2024
[2024-05-29 12:18] LABS: Absolute Lymphocytes (CBC) 0.6 K/uL (0.7-4.9); Absolute Monocytes 0.3 K/uL (0.1-1.3); Absolute Neutrophil 5.7 K/uL (1.8-8.0); Basophils % 0.5 % (0-1.3); Eosinophils % 0.1 % (0-4.4); Hematocrit 41.5 % (36.0-45.0); Hemoglobin 13.9 g/dL (12.0-15.0); Lymphocytes % 9.7 % (15.3-44.8); MCH 29.5 pg (27.0-35.0); MCHC 33.6 g/dL (32.0-36.0); MCV 87.9 fL (80-100); MPV 8.1 fL (7.6-11.3); Monocytes % 4.6 % (3.3-12.3); Neutrophils % 85.1 % (41.7-73.7); Platelets 280 thou/uL (152-406); RBC Red Blood Cell Count 4.72 M/uL (3.86-4.86); Red Cell Distribution Width 15.1 % (12.1-15.2)
[2024-05-29 12:21] LABS: PT Prothrombin Time 11.6 SECONDS (9.4-12.5); Protime INR 1.11
[2024-05-29 12:35] LABS: ALT/SGPT 23 U/L (13-56); AST/SGOT 16 U/L (15-37); Albumin 3.2 g/dL (3.4-5.0); Albumin/Globulin Ratio 0.9 (1.1-1.8); Alkaline Phosphatase 124 U/L (45-117); Anion Gap 7.8 mEq/L (5.0-15.0); BUN Blood Urea Nitrogen 19 mg/dL (7-18); Bicarbonate 29 mEq/L (21-32); Bilirubin Direct < 0.2 mg/dL (0-0.2); Bilirubin Indirect, Calculated 0.3 mg/dL (0.2-0.8); Bilirubin Total 0.5 mg/dL (0.2-1.0); Globulin 3.7 g/dL (2.3-3.5); Glomerular Filtration Rate 86 ml/min (=/>90); Glucose Level 124 mg/dL (74-106); Lipase 25 U/L (13-75); Magnesium 2.3 mg/dL (1.6-2.4); NT PRO-BNP 168 pg/mL (<450); Potassium 3.8 mEq/L (3.5-5.1); Protein, Total 6.9 g/dL (6.4-8.2); Sodium Level 137 mEq/L (136-145); Troponin High Sensitivity 26.6 pg/mL (<58.9)
--- NOTE | 2024-05-29 12:37 | RAD REPORT ---
EXAMINATION: Neck Angio CLINICAL INDICATION: Neck pain, dizziness and headaches TECHNIQUE: Axial CT images were obtained from the aortic arch to the skull base after intravenous adm inistration of 100 cc Isovue-370 utilizing angiographic protocol. Multiplanar reformats, as well as 3D post-processing (maximum intensity projection images, volume rendered images and/or shaded surface rendered images) were generated and reviewed. One or more of the following dose reduction techniques were used: Automated exposure control, adjustment of the mA and/or kV according to patient size, and/or iterative reconstruction. Unless otherwise specified, incidental findings do not require dedicated imaging follow-up. COMPARISON: No prior exam. FINDINGS: The visualized aortic arch and great vessels do not demonstrate a significant abnormality Mild plaque within the common carotid, internal carotid and external carotid arteries bilaterally Vertebral arteries are unremarkable No significant stenosis noted. A dissection is not seen. Methods for NASCET criteria: Mild stenosis, 0% to 49%; Moderate stenosis 50% to 69%; Severe stenosis, 70% to 99% IMPRESSION: No acute vascular abnormality displayed
--- NOTE | 2024-05-29 12:37 | RAD REPORT ---
EXAMINATION: CTA HEAD CLINICAL INDICATION: Headache and dizziness TECHNIQUE: Axial CT images were obtained through the head after 100 cc Isovue-370 intravenous contras t utilizing angiographic protocol with 3D post-processing (maximum intensity projection images, volume rendered images and/or shaded surface rendered images). One or more of the following dose red uction techniques were used: Automated exposure control, adjustment of the mA and/or kV according to patient size, and/or iterative reconstruction. Unless otherwise specified, incidental findings do not require dedicated imaging follow-up. COMPARISON: None FINDINGS: Distal internal carotid, basilar, anterior cerebral, middle cerebral and posterior cerebral arteries do not demonstrate a significant stenosis An aneurysm not noted. No large vessel occlusion IMPRESSION: No acute vascular abnormality displayed
[2024-05-29] MEDS ORDERED: FOLIC ACID 5 MG/ML VIAL ONE (12:56)
[2024-05-29] MEDS ORDERED: FAMOTIDINE 20 MG/2 ML VIAL IV ONE (12:56)
[2024-05-29] MEDS ORDERED: NA CHLORIDE 0.9% 1,000 ML ONE (12:57)
--- NOTE | 2024-05-29 13:12 | RAD REPORT ---
EXAMINATION: ONE VIEW CHEST XR CLINICAL INDICATION: COUGH TECHNIQUE: Frontal chest projection is submitted. Examination is limited by patient positioning and t echnique. COMPARISON: No prior exam. FINDINGS: Mild interstitial prominence bilaterally may indicate mild interstitial pulmonary edema. No focal con solidation typical of pneumonia. The heart is mildly enlarged in size. No displaced fractures identified. Prominent degenerative change in both shoulders, more severe on the right.
[2024-05-29 13:31] LABS: Platelet Estimate ADEQ; White Blood Cell Scan OK (OK)
[2024-05-29 13:32] LABS: Blood Morphology Comment NOT SEEN (NOT SEEN)
[2024-05-29] MEDS ORDERED: ONDANSETRON 4 MG/2 ML VIAL ONE (13:44)
[2024-05-29 14:22] LABS: SARS-CoV-2 Antigen CONTROL BLUE LINE VIS/BG OK; SARS-CoV-2 Antigen Rapid Res Negative (Negative)
[2024-05-29 14:49] LABS: Specific Gravity > 1.030 (1.005-1.030); Sqamous Epithelial None Seen /HPF (None Seen); Urine Bacteria 20-50 /HPF (<20); Urine Bilirubin NEGATIVE (Negative); Urine Blood Negative (Negative); Urine Clarity Extremely Turbid (Clear); Urine Color Light-Yellow (Yellow); Urine Culture Reflex Order NOT NEEDED; Urine Glucose NEGATIVE (Negative); Urine Ketones NEGATIVE (Negative); Urine Microscopic Reflex YN ORDER UMIC; Urine Mucus Slight /HPF (None Seen); Urine Nitrite NEGATIVE (Negative); Urine Protein NEGATIVE (Negative); Urine RBC 21-50 /HPF (None Seen); Urine Urobilinogen Normal (Normal); Urine WBC <5 /HPF (<5); Urine Yeast (Budding) Few /HPF (None Seen); Urine pH 7.5 (5.0-7.0)
--- NOTE | 2024-05-29 16:18 | RAD REPORT ---
EXAMINATION: MRI BRAIN WITHOUT CONTRAST CLINICAL INDICATION: DIZZINESS TECHNIQUE: Multiplanar multisequence MR images of the brain were obtained without intravenous contras t. Unless otherwise specified, incidental findings do not require dedicated imaging follow-up. COMPARISON: Same day [facility] imaging FINDINGS: INTRACRANIAL: Diffusion-weighted images show no acute or early subacute infarction. There is moderate brain atrophy with moderateT2/FLAIR hyperintensities in the periventricular and deep white matter regions, likely representing chronic microvascular ischemic changes. There is no mass effect or midli ne shift. No abnormal extraaxial fluid collection. VASCULATURE: Normal signal voids in the larger intracranial arteries and dural venous sinuses. SINUSES: The paranasal sinuses and mastoid air cells are predominantly clear. BONE: The marrow signal pattern is within normal limits. IMPRESSION: Negative for acutre CVA or other acute intracranial finding.
[2024-05-29] MEDS ORDERED: ASPIRIN 81 MG CHEWABLE TABLET ONE (16:35)
--- NOTE | 2024-05-29 17:00 | EDPHYS ---
Physician Documentation [facility] Name: Ghazala Orozco Age: 84 yrs Sex: Female : 1940 Arrival Date: 05/29/2024 Time: 11:40 Bed 5 Private MD: ED Physician Akira Rosa HPI: 05/29 15:41 This 84 yrs old Female presents to ER via EMS with complaints of Dizziness, daniel Headache. 15:41 The patient presents with dizziness, generalized weakness. Onset: The symptoms/episode daniel began/occurred just prior to arrival. Context: occurred while the patient was sitting, just prior to the episode the patient experienced no apparent symptoms. Modifying factors: The symptoms are alleviated by nothing, the symptoms are aggravated by nothing. Associated signs and symptoms: Pertinent positives: DIZZINESS. Severity of symptoms: At their worst the symptoms were moderate in the emergency department the symptoms have improved moderately. Patient's baseline: Neuro: alert and fully oriented. The patient has not experienced similar symptoms in the past. Historical: - Allergies: 12:17 Codeine; jl7 12:17 NSAIDS; jl7 12:17 tramadol; jl7 - PMHx: 12:23 None; jl7 - PSHx: 12:17 hysterectomy (ip); Left hip replacement; jl7 - Immunization history:: Adult Immunizations unknown. - Infectious Disease History:: Denies. - Social history:: Smoking status: Patient denies any tobacco usage or history of. ROS: 15:50 Constitutional: Negative for fever, chills, and weight loss, Eyes: Negative for injury, daniel pain, redness, and discharge, ENT: Negative for injury, pain, and discharge, Neck: Negative for injury, pain, and swelling, Cardiovascular: Negative for chest pain, palpitations, and edema, Respiratory: Negative for shortness of breath, cough, wheezing, and pleuritic chest pain, Abdomen/GI: Negative for abdominal pain, nausea, vomiting, diarrhea, and constipation, Back: Negative for injury and pain, : Negative for injury, bleeding, discharge, and swelling, MS/Extremity: Negative for injury and deformity, Skin: Negative for injury, rash, and discoloration, Psych: Negative for depression, anxiety, suicide ideation, homicidal ideation, and hallucinations, Allergy/Immunology: Negative for hives, rash, and allergies, Endocrine: Negative for neck swelling, polydipsia, polyuria, polyphagia, and marked weight changes, Hematologic/Lymphatic: Negative for swollen nodes, abnormal bleeding, and unusual bruising, 15:50 Neuro: Positive for dizziness, headache, Exam: 15:50 Constitutional: This is a well developed, well nourished patient who is awake, alert, daniel and in no acute distress. Head/Face: Normocephalic, atraumatic. Eyes: Pupils equal round and reactive to light, extra-ocular motions intact. Lids and lashes normal. Conjunctiva and sclera are non-icteric and not injected. Cornea within normal limits. Periorbital areas with no swelling, redness, or edema. ENT: Nares patent. No nasal discharge, no septal abnormalities noted. Tympanic membranes are normal and external auditory canals are clear. Oropharynx with no redness, swelling, or masses, exudates, or evidence of obstruction, uvula midline. Mucous membranes moist. Neck: Trachea midline, no thyromegaly or masses palpated, and no cervical lymphadenopathy. Supple, full range of motion without nuchal rigidity, or vertebral point tenderness. No Meningismus. Chest/axilla: Normal chest wall appearance and motion. Nontender with no deformity. No lesions are appreciated. Cardiovascular: Regular rate and rhythm with a normal S1 and S2. No gallops, murmurs, or rubs. Normal PMI, no JVD. No pulse deficits. Respiratory: Lungs have equal breath sounds bilaterally, clear to auscultation and percussion. No rales, rhonchi or wheezes noted. No increased work of breathing, no retractions or nasal flaring. Abdomen/GI: Soft, non-tender, with normal bowel sounds. No distension or tympany. No guarding or rebound. No evidence of tenderness throughout. Back: No spinal tenderness. No costovertebral tenderness. Full range of motion. Female : Normal external genitalia. Skin: Warm, dry with normal turgor. Normal color with no rashes, no lesions, and no evidence of cellulitis. MS/ Extremity: Pulses equal, no cyanosis. Neurovascular intact. Full, normal range of motion., bilateral aka Neuro: Awake and alert, GCS 15, oriented to person, place, time, and situation. Cranial nerves II-XII grossly intact. Motor strength 5/5 in all extremities. Sensory grossly intact. Cerebellar exam normal. Normal gait. Psych: Awake, alert, with orientation to person, place and time. Behavior, mood, and affect are within normal limits. 15:50 ECG was reviewed by the Attending Physician. Vital Signs: 11:46 BP 149 / 83; Pulse 68; Resp 17; Temp 97; Pulse Ox 94% ; jl7 12:30 BP 128 / 76; Pulse 71; Resp 18; Pulse Ox 96% ; me1 13:00 BP 134 / 72; Pulse 69; Resp 13; Pulse Ox 95% ; me1 13:30 BP 140 / 76; Pulse 69; Resp 14; Pulse Ox 96% ; me1 14:00 BP 117 / 71; Pulse 71; Resp 15; Pulse Ox 97% ; me1 14:30 BP 124 / 74; Pulse 75; Resp 13; Pulse Ox 97% ; me1 15:00 BP 120 / 76; Pulse 74; Resp 14; Pulse Ox 99% ; me1 15:30 BP 120 / 76; Pulse 73; Resp 18; Pulse Ox 95% ; me1 16:00 BP 122 / 73; Pulse 76; Resp 12; Pulse Ox 96% ; me1 16:30 BP 113 / 72; Pulse 67; Resp 14; Pulse Ox 98% ; me1 17:00 BP 129 / 78; Pulse 69; Resp 16; Pulse Ox 97% ; me1 17:30 BP 116 / 74; Pulse 71; Resp 14; Temp 98.1; Pulse Ox 100% ; me1 11:46 EMS VS jl7 NIH Stroke Scale Scores: 12:30 NIHSS Score: 0 es3 12:30 NIHSS Score: 0 me1 [place] Coma Score: 15:53 Eye Response: spontaneous(4). Motor Response: obeys commands(6). Verbal Response: daniel oriented(5). Total: 15. MDM: 11:47 Medical Screening Exam initiated daniel 15:53 Differential diagnosis: cerebral abscess, cervical epidural bleed, cervical perispinal daniel abcess, cluster headache, cerebral vascular accident, epidural hematoma, hypertensive headache, hypoglycemia, hyponatremia, intracerebral hemorrhage, meningitis, migraine, neoplasm, otitis, post lumbar puncture headache, sinusitis, subarachnoid bleed, subdural hematoma, temporal arteritis, tension headache, trigeminal neuralgia, uremia, vasomotor headache. Differential diagnosis: cardiac arrhythmia, CVA, generalized weakness, hyperventilation, hypovolemia, TIA. Data reviewed: vital signs, nurses notes, EMS record, lab test result(s), EKG, radiologic studies, CT scan, MRI, plain films. Consideration of Admission/Observation Escalation of care including admission/observation considered. I considered the following discharge prescriptions or medication management in the emergency department Medications were administered in the Emergency Department. See MAR. Independent interpretation of the following test(s) in the Emergency Department EKG: See my EKG interpretation above CT Scan: My interpretation is CT BRAIN. Test considered but Not performed: Ultrasound NO CAROTID USG. Care significantly affected by the following chronic conditions: Hypertension. Counseling: I had a detailed discussion with the patient and/or guardian regarding the historical points, exam findings, and any diagnostic results supporting the discharge/admit diagnosis, the presence of at least one elevated blood pressure reading (>120/80) during this emergency department visit, lab results, radiology results, the need for outpatient follow up, for definitive care, 05/29 11:53 Order name: Basic Metabolic Panel; Complete Time: 15:12 [facility] 05/29 11:53 Order name: CBC with Diff; Complete Time: 15:12 [facility] 05/29 11:53 Order name: LFT's; Complete Time: 15:12 [facility] 05/29 11:53 Order name: Magnesium; Complete Time: 15:12 [facility] 05/29 11:53 Order name: NT PRO-BNP; Complete Time: 15:12 [facility] 05/29 11:53 Order name: PT-INR; Complete Time: 15:12 [facility] 05/29 11:53 Order name: Troponin HS; Complete Time: 15:12 [facility] 05/29 11:53 Order name: Lipase; Complete Time: 15:12 [facility] 05/29 11:53 Order name: Urinalysis w/ reflexes; Complete Time: 15:12 [facility] 05/29 11:54 Order name: Flu; Complete Time: 15:12 [facility] 05/29 11:54 Order name: SARS RAPID; Complete Time: 15:12 [facility] 05/29 12:18 Order name: Glucose, Ancillary Testing; Complete Time: 15:12 [facility] 05/29 12:21 Order name: CBC Smear Scan; Complete Time: 15:12 [facility] 05/29 15:44 Order name: CREATININE WHOLE BLOOD; Complete Time: 15:57 [facility] 05/29 11:53 Order name: XRAY Chest (1 view); Complete Time: 15:12 [facility] 05/29 11:53 Order name: CT Stroke Brain w/o Contrast; Complete Time: 15:12 [facility] 05/29 11:53 Order name: CT Head Angio; Complete Time: 15:12 [facility] 05/29 11:53 Order name: CT Neck Angio; Complete Time: 15:12 [facility] 05/29 15:14 Order name: Brain Wo Cont; Complete Time: 16:59 [facility] 05/29 11:53 Order name: Cardiac monitoring; Complete Time: 12:52 [facility] 05/29 11:53 Order name: EKG - Nurse/Tech; Complete Time: 12:52 [facility] 05/29 11:53 Order name: IV Saline Lock; Complete Time: 12:22 [facility] 05/29 11:53 Order name: Labs collected and sent; Complete Time: 12:22 [facility] 05/29 11:53 Order name: O2 Per Protocol; Complete Time: 12:22 [facility] 05/29 11:53 Order name: O2 Sat Monitoring; Complete Time: 12:22 [facility] EC:50 Rate is 69 beats/min. Rhythm is regular. QRS [place] is Normal. HI interval is normal. QRS daniel interval is normal. QT interval is normal. No Q waves. T waves are Normal. No ST changes noted. Clinical impression: NSR w/ Non-specific ST/T Changes and No evidence of ischemia. Interpreted by me. Reviewed by me. Administered Medications: 13:01 Drug: foLIC Acid IVPB 1 mg IVPB once Route: IVPB; Site: right antecubital; me1 13:09 Follow up: Response: No adverse reaction me1 13:01 Drug: Famotidine IVP 20 mg IVP once; dilute with 10 mL 0.9% NaCl; give over 2 minutes me1 Route: IVP; Site: right antecubital; 13:09 Follow up: Response: No adverse reaction me1 13:01 Drug: NS 0.9% IV 1000 ml IV at 1000 ml once; to be given as a bolus over 60 minutes me1 Route: IV; Rate: 1000 ml; Site: right antecubital; 13:56 Follow up: Response: No adverse reaction; IV Status: Completed infusion; IV Intake: me1 1000ml 13:48 Drug: Ondansetron IVP 4 mg IVP once; over 2 minutes Route: IVP; Site: right antecubital;me1 13:58 Follow up: Response: No adverse reaction; Nausea is decreased me1 16:37 Drug: Aspirin PO Chewable Tablet 81 mg PO once Route: PO; me1 17:08 Follow up: Response: No adverse reaction me1 17:24 Drug: Meclizine PO 25 mg PO once Route: PO; me1 17:52 Follow up: Response: No adverse reaction; Marked relief of symptoms me1 Point of Care Testing: Blood Glucose: 12:23 Blood Glucose: 125 mg/dL; jl7 Ranges: Critical Glucose Levels:Adult <50 mg/dl or >400 mg/dl <40 mg/dl or >180 mg/dl Disposition Summary: 05/29/24 16:59 Discharge Ordered Notes: Location: Home daniel Problem: new daniel Symptoms: have improved daniel Condition: Stable daniel Diagnosis - Headache daniel - Dizziness and giddiness daniel Followup: daniel - With: Private Physician - When: 2 - 3 days - Reason: Recheck today's complaints, Continuance of care, Re-evaluation by your physician Followup: daniel - With: Lele Bellamy MD - When: 2 - 3 days - Reason: Recheck today's complaints, Re-evaluation by your physician Discharge Instructions: - Discharge Summary Sheet daniel - Benign Positional Vertigo daniel - Dizziness daniel - General Headache Without Cause daniel - Vertigo, [id number] daniel - Aspirin and Your Heart daniel - General Headache Without Cause, [id number] [facility] Forms: - Medication Reconciliation Form daniel - Antibiotic Education daniel - Prescription Opioid Use daniel - Patient Portal Instructions [facility] - Leadership Thank You Letter [facility] Prescriptions: - Meclizine 25 mg Oral Tablet - take 1 tablet ORAL route every 8 hours As needed; 30 tablet; Refills: 0, [facility] Product Selection Permitted - Folic Acid 1 mg Oral Tablet - take 1 tablet ORAL route once daily; 30 tablet; Refills: 0, Product Selection daniel Permitted NIH Stroke Scale - NIH Stroke Score Date: 05/29/2024 Time: 12:30 Total Score = 0 10. Dysarthria (speech clarity - read or repeat words) - 0(Normal) 11. Extinction and Inattention (visual/tactile/auditory/spatial/personal) - 0(No abnormality) 1a. Level of Consciousness (LOC) - 0(Alert) 1b. Level of Consciousness (LOC) (Month \T\ Age) - 0(Both) 1c. LOC Commands (Open \T\ Closes Eyes/Bench Grinder) - 0(Both) 2. Best Gaze (Lateral Gaze Paresis) - 0(Normal) 3. Visual Field Loss - 0(No visual loss) 4. Facial Palsy - 0(Normal) 5a. Left Arm: Motor (10-second hold) - 0(No drift) 5b. Right Arm: Motor (10-second hold) - 0(No drift) 6a. Left Leg: Motor (5-second hold - always test supine) - 0(No drift) 6b. Right Leg: Motor (5-second hold - always test supine) - 0(No drift) 7. Limb Ataxia (finger/nose \T\ heel/escobar - test with eyes open) - 0(Absent) 8. Sensory Loss (pinprick arms/legs/face) - 0(Normal) 9. Best Language: Aphasia (description/naming/reading) - 0(No aphasia) Initials: es3 NIH Stroke Scale - NIH Stroke Score Date: 05/29/2024 Time: 12:30 Total Score = 0 10. Dysarthria (speech clarity - read or repeat words) - 0(Normal) 11. Extinction and Inattention (visual/tactile/auditory/spatial/personal) - 0(No abnormality) 1a. Level of Consciousness (LOC) - 0(Alert) 1b. Level of Consciousness (LOC) (Month \T\ Age) - 0(Both) 1c. LOC Commands (Open \T\ Closes Eyes/Bench Grinder) - 0(Both) 2. Best Gaze (Lateral Gaze Paresis) - 0(Normal) 3. Visual Field Loss - 0(No visual loss) 4. Facial Palsy - 0(Normal) 5a. Left Arm: Motor (10-second hold) - 0(No drift) 5b. Right Arm: Motor (10-second hold) - 0(No drift) 6a. Left Leg: Motor (5-second hold - always test supine) - 0(No drift) 6b. Right Leg: Motor (5-second hold - always test supine) - 0(No drift) 7. Limb Ataxia (finger/nose \T\ heel/escobar - test with eyes open) - 0(Absent) 8. Sensory Loss (pinprick arms/legs/face) - 0(Normal) 9. Best Language: Aphasia (description/naming/reading) - 0(No aphasia) Initials: me1 Signatures: Dispatcher [employer] EDMS Akira Rosa MD MD cha Leal, Jahala, RN RN jl7 Cindi Casas, RN RN me1 Corrections: (The following items were deleted from the chart) 11:54 11:54 BASIC METABOLIC PANEL+C.LAB.BRZ ordered. EDMS EDMS 11:54 11:54 CBC+H.LAB.BRZ ordered. EDMS EDMS 11:54 11:54 HEPATIC FUNCTION+C.LAB.BRZ ordered. EDMS EDMS 11:54 11:54 MAGNESIUM+C.LAB.BRZ ordered. EDMS EDMS 11:54 11:54 PROBNP+C.LAB.BRZ ordered. EDMS EDMS 11:54 11:54 PROTIME (+INR)+COAG.LAB.BRZ ordered. EDMS EDMS 11:54 11:54 Troponin High Sensitivity+C.LAB.BRZ ordered. EDMS EDMS 11:54 11:54 LIPASE+C.LAB.BRZ ordered. EDMS EDMS 11:54 11:54 Urinalysis+U.LAB.BRZ ordered. EDMS EDMS 11:54 11:54 Chest Single View+RAD.RAD.BRZ ordered. EDMS EDMS 11:54 11:54 CT-STROKE BRAIN W/O CONTRAST+CT.RAD.BRZ ordered. EDMS EDMS 11:54 11:54 Head Angio+CT.RAD.BRZ ordered. EDMS EDMS 11:54 11:54 Neck Angio+CT.RAD.BRZ ordered. EDMS EDMS 11:54 11:54 MR STROKE PROTOCOL+MRI.RAD.BRZ ordered. EDMS EDMS 11:54 11:54 Influenza Screen (A \T\ B)+BA.LAB.BRZ ordered. EDMS EDMS 11:54 11:54 SARS-COV-2 Antigen Rapid+I.LAB.BRZ ordered. EDID EDMS
--- NOTE | 2024-05-29 17:00 | ER ---
Nurse's Notes [facility] Name: Ghazala Orozco Age: 84 yrs Sex: Female : 1940 Arrival Date: 05/29/2024 Time: 11:40 Bed 5 Private MD: Diagnosis: Headache;Dizziness and giddiness Presentation: 05/29 11:46 Chief complaint: EMS states: Woke at 0500 with severe TRIVEDI, nausea and dizziness. jl7 Coronavirus screen: At this time, the client does not indicate any symptoms associated with coronavirus-19. Ebola Screen: No symptoms or risks identified at this time. Risk Assessment: Do you want to hurt yourself or someone else? Patient reports no desire to harm self or others. Onset of symptoms is unknown. Care prior to arrival: None. 11:46 Method Of Arrival: EMS: [facility] 7 11:46 Acuity: SANDY 2 jl7 12:17 An acute neurological deficit is present. The patients blood glucose was checked before jl7 arriving to the hospital and was found to be normal. 13:11 Initial Sepsis Screen: Does the patient meet any 2 criteria? No. Patient's initial me1 sepsis screen is negative. Does the patient have a suspected source of infection? No. Patient's initial sepsis screen is negative. Triage Assessment: 17:53 The onset of the patients symptoms was May 29, 2024 at 05:00. me1 Stroke Activation: Symptom onset > 6 hours Physician: ED Attending; Name: Moe; Notified At: 11:46; Arrived At: 11:46 Physician: Mid-Level Provider; Name: ; Notified At: 11:46; Arrived At: Physician: [not used]; Name: ; Notified At: ; Arrived At: Physician: [not used]; Name: ; Notified At: ; Arrived At: Physician: [not used]; Name: ; Notified At: ; Arrived At: Historical: - Allergies: 12:17 Codeine; jl7 12:17 NSAIDS; jl7 12:17 tramadol; jl7 - PMHx: 12:23 None; jl7 - PSHx: 12:17 hysterectomy (ip); Left hip replacement; jl7 - Immunization history:: Adult Immunizations unknown. - Infectious Disease History:: Denies. - Social history:: Smoking status: Patient denies any tobacco usage or history of. Screenin:30 VAN Screening: Arm Drift: Patient shows no arm weakness. Patient is VAN negative. es3 Visual Disturbance: No visual disturbance noted. Aphasia: No aphasia noted. Neglect: No neglect noted. 12:30 [facility] ED Fall Risk Assessment (Adult) History of falling in the last 3 months, me1 including since admission No falls in past 3 months (0 pts) Confusion or Disorientation No (0 pts) Intoxicated or Sedated No (0 pts) Impaired Gait No (0 pts) Mobility Assist Device Used No (0 pt) Altered Elimination No (0 pt) Score/Fall Risk Level 0 - 2 = Low Risk Maintained a safe environment, Provided non-skid footwear, Hourly rounding (assess needs \T\ fall precautionary measures) done. Abuse screen: Denies threats or abuse. Nutritional screening: No deficits noted. Tuberculosis screening: No symptoms or risk factors identified. 12:39 [place] Swallow Protocol Exclusion Criteria: Exclusion Criteria Result: Proceed Brief es3 Cognitive Screen What is your name? Normal, Where are you right now? Normal, What year is it? Normal. Oral Mechanism Examination Facial Symmetry: Normal, Motion: Normal, Lip Closure: Normal, Oral Mechanism Result: Normal. 3 oz Water Swallow Challenge: Pt able to drink all water without stopping, coughing, choking or throat clearing: Yes Result: PASS Notified: Akira Rosa MD. Assessment: 12:30 VAN Scoring: Arm Drift: Patients demonstrates NO arm weakness. Patient is VAN Negative. me1 Visual Disturbance: No visual disturbance noted. Aphasia: No aphasia noted. Neglect: No neglect noted. TNKase (Tenecteplase) Screening: Contraindications: Patient reports onset of signs and symptoms of stroke greater than 6 hours ago: Yes. General: Appears in no apparent distress. well groomed, well developed, well nourished, Behavior is calm, cooperative, appropriate for age, Reports Woke at 0500 with severe TRIVEDI, nausea and dizziness. Pain: Complains of pain in head Pain does not radiate. Pain currently is 5 out of 10 on a pain scale. Quality of pain is described as aching, Pain began 05:00 Is continuous. Neuro: Level of Consciousness is awake, alert, obeys commands, Oriented to person, place, time, situation, Appropriate for age Reports dizziness, since 05:00 headache. Cardiovascular: Patient's skin is warm and dry. Respiratory: Airway is patent Respiratory effort is even, unlabored, Respiratory pattern is regular, symmetrical. GI: Reports nausea. : No signs and/or symptoms were reported regarding the genitourinary system. EENT: No signs and/or symptoms were reported regarding the EENT system. Derm: Skin is intact, is healthy with good turgor, Skin is pink, warm \T\ dry. Musculoskeletal: No signs and/or symptoms reported regarding the musculoskeletal system. Vital Signs: 11:46 BP 149 / 83; Pulse 68; Resp 17; Temp 97; Pulse Ox 94% ; jl7 12:30 BP 128 / 76; Pulse 71; Resp 18; Pulse Ox 96% ; me1 13:00 BP 134 / 72; Pulse 69; Resp 13; Pulse Ox 95% ; me1 13:30 BP 140 / 76; Pulse 69; Resp 14; Pulse Ox 96% ; me1 14:00 BP 117 / 71; Pulse 71; Resp 15; Pulse Ox 97% ; me1 14:30 BP 124 / 74; Pulse 75; Resp 13; Pulse Ox 97% ; me1 15:00 BP 120 / 76; Pulse 74; Resp 14; Pulse Ox 99% ; me1 15:30 BP 120 / 76; Pulse 73; Resp 18; Pulse Ox 95% ; me1 16:00 BP 122 / 73; Pulse 76; Resp 12; Pulse Ox 96% ; me1 16:30 BP 113 / 72; Pulse 67; Resp 14; Pulse Ox 98% ; me1 17:00 BP 129 / 78; Pulse 69; Resp 16; Pulse Ox 97% ; me1 17:30 BP 116 / 74; Pulse 71; Resp 14; Temp 98.1; Pulse Ox 100% ; me1 11:46 EMS VS jl7 [place]rett Coma Score: 15:53 Eye Response: spontaneous(4). Motor Response: obeys commands(6). Verbal Response: daniel oriented(5). Total: 15. NIH Stroke Scale Scores: 12:30 NIHSS Score: 0 es3 12:30 NIHSS Score: 0 me1 ED Course: 11:46 Patient arrived in ED. bd 11:46 Arm band placed on right wrist. jl7 11:47 Akira Rosa MD is Attending Physician. daniel 12:13 CT Stroke Brain w/o Contrast In Process Unspecified. EDMS 12:13 CT Head Angio In Process Unspecified. EDMS 12:13 CT Neck Angio In Process Unspecified. EDMS 12:16 Triage completed. jl7 12:24 Initial lab(s) drawn, by me, sent to lab. Inserted saline lock: 22 gauge in right jl7 antecubital area, using aseptic technique. Blood collected. Flushed with 10 mL NS. 12:30 Patient has correct armband on for positive identification. Bed in low position. Call me1 light in reach. Side rails up X2. Provided Education on: POC. Verbalized understanding. Client placed on continuous cardiac and pulse oximetry monitoring. NIBP monitoring applied. front desk monitor on. Pulse ox on. NIBP on. 12:30 Warm blanket given. me1 12:30 No provider procedures requiring assistance completed. me1 12:54 Cindi Casas, RN is Primary Nurse. me1 13:07 XRAY Chest (1 view) In Process Unspecified. EDMS 13:10 EKG done, by ED staff, reviewed by Akira Rosa MD. me1 14:06 SARS RAPID Sent. me1 14:06 Flu Sent. me1 14:06 Urinalysis w/ reflexes Sent. me1 14:06 Urine collected: clean catch specimen, cloudy, COVID swab sent to lab. Flu and/or RSV me1 swab sent to lab. 16:06 Brain Wo Cont In Process Unspecified. EDMS 16:59 Lele Bellamy MD is Referral Physician. daniel 17:52 IV discontinued, intact, bleeding controlled, No redness/swelling at site. Pressure me1 dressing applied. Administered Medications: 13:01 Drug: foLIC Acid IVPB 1 mg IVPB once Route: IVPB; Site: right antecubital; me1 13:09 Follow up: Response: No adverse reaction me1 13:01 Drug: Famotidine IVP 20 mg IVP once; dilute with 10 mL 0.9% NaCl; give over 2 minutes me1 Route: IVP; Site: right antecubital; 13:09 Follow up: Response: No adverse reaction me1 13:01 Drug: NS 0.9% IV 1000 ml IV at 1000 ml once; to be given as a bolus over 60 minutes me1 Route: IV; Rate: 1000 ml; Site: right antecubital; 13:56 Follow up: Response: No adverse reaction; IV Status: Completed infusion; IV Intake: me1 1000ml 13:48 Drug: Ondansetron IVP 4 mg IVP once; over 2 minutes Route: IVP; Site: right antecubital;me1 13:58 Follow up: Response: No adverse reaction; Nausea is decreased me1 16:37 Drug: Aspirin PO Chewable Tablet 81 mg PO once Route: PO; me1 17:08 Follow up: Response: No adverse reaction me1 17:24 Drug: Meclizine PO 25 mg PO once Route: PO; me1 17:52 Follow up: Response: No adverse reaction; Marked relief of symptoms me1 Medication: 12:30 VIS not applicable for this client. me1 Point of Care Testing: Blood Glucose: 12:23 Blood Glucose: 125 mg/dL; jl7 Ranges: Intake: 13:56 IV: 1000ml; Total: 1000ml. me1 Outcome: 16:59 Discharge ordered by . daniel 17:51 Patient left the ED. me1 17:52 Discharged to home via wheelchair, with family, me1 17:52 Condition: stable 17:52 Discharge instructions given to patient, family, Instructed on discharge instructions, follow up and referral plans. medication usage, Demonstrated understanding of instructions, follow-up care, medications, Prescriptions given X 2, NIH Stroke Scale - NIH Stroke Score Date: 05/29/2024 Time: 12:30 Total Score = 0 10. Dysarthria (speech clarity - read or repeat words) - 0(Normal) 11. Extinction and Inattention (visual/tactile/auditory/spatial/personal) - 0(No abnormality) 1a. Level of Consciousness (LOC) - 0(Alert) 1b. Level of Consciousness (LOC) (Month \T\ Age) - 0(Both) 1c. LOC Commands (Open \T\ Closes Eyes/Home Care Liaison) - 0(Both) 2. Best Gaze (Lateral Gaze Paresis) - 0(Normal) 3. Visual Field Loss - 0(No visual loss) 4. Facial Palsy - 0(Normal) 5a. Left Arm: Motor (10-second hold) - 0(No drift) 5b. Right Arm: Motor (10-second hold) - 0(No drift) 6a. Left Leg: Motor (5-second hold - always test supine) - 0(No drift) 6b. Right Leg: Motor (5-second hold - always test supine) - 0(No drift) 7. Limb Ataxia (finger/nose \T\ heel/escobar - test with eyes open) - 0(Absent) 8. Sensory Loss (pinprick arms/legs/face) - 0(Normal) 9. Best Language: Aphasia (description/naming/reading) - 0(No aphasia) Initials: es3 NIH Stroke Scale - NIH Stroke Score Date: 05/29/2024 Time: 12:30 Total Score = 0 10. Dysarthria (speech clarity - read or repeat words) - 0(Normal) 11. Extinction and Inattention (visual/tactile/auditory/spatial/personal) - 0(No abnormality) 1a. Level of Consciousness (LOC) - 0(Alert) 1b. Level of Consciousness (LOC) (Month \T\ Age) - 0(Both) 1c. LOC Commands (Open \T\ Closes Eyes/Home Care Liaison) - 0(Both) 2. Best Gaze (Lateral Gaze Paresis) - 0(Normal) 3. Visual Field Loss - 0(No visual loss) 4. Facial Palsy - 0(Normal) 5a. Left Arm: Motor (10-second hold) - 0(No drift) 5b. Right Arm: Motor (10-second hold) - 0(No drift) 6a. Left Leg: Motor (5-second hold - always test supine) - 0(No drift) 6b. Right Leg: Motor (5-second hold - always test supine) - 0(No drift) 7. Limb Ataxia (finger/nose \T\ heel/escobar - test with eyes open) - 0(Absent) 8. Sensory Loss (pinprick arms/legs/face) - 0(Normal) 9. Best Language: Aphasia (description/naming/reading) - 0(No aphasia) Initials: me1 Signatures: Dispatcher [employer] EDMS Renetta Aktins Corey, MD MD cha Leal, Jahala, RN RN jl7 Cindi Casas RN RN me1 Georgiana Barrera, AIMEE RN es3 Corrections: (The following items were deleted from the chart) 12:39 12:38 NIHSS Score: 0 es3 es3 13:11 11:46 Chief complaint: EMS states: Woke at 0500 with severe TRIVEDI, nausea and me1 dizziness jl7 13:52 11:46 Chief complaint: EMS states: Woke at 0500 with severe TRIVEDI, nausea and me1 dizziness me1
[2024-05-29] MEDS ORDERED: MECLIZINE HCL 12.5 MG TAB ONE (17:22)
[2024-05-29 18:22] VITALS: BP 116/74; TEMP 98.1; O2SAT 100
== END 2024-05-29 17:51 | disposition home or self-care (01) ==
LOC: ER 11:40
DX: R51.9 Headache, unspecified (principal); R42 Dizziness and giddiness; R53.1 Weakness; R29.700 NIHSS score 0; Z96.642 Presence of left artificial hip joint; Z11.52 Encounter for screening for COVID-19
CPT/HCPCS: 85025; 81001; 80048; 36415; 83735; 85610; 82565; 82947; 80076; 84484; 83690; 83880; 87804 ×2; 70496; 70498; 70450; 71045; 70551; 87811; Q9967; J8597; J2405; J7030; 93005

== ENCOUNTER 2024-06-02 10:15 | Emergency (ER) | payer OTHER ==
--- OUTSIDE RECORDS SUMMARY | 2024-06-02 10:28 | XMS REPORT | Continuity of Care Document ---
Author Name Unknown Address [address] [facility] [address] [place] [address] [facility] thconnect Address [address] [facility] [address] [place] [address] Care Team Providers Care Trichologist Name Role Phone Loyda Mcdonough MD Primary Care Physician [phone] JERRY IBARRA Attending Clinician LOYDA Bloom Attending Clinician Unavailable LOYDA MCDONOUGH Attending Clinician Unavailable Doctor Unassigned, [place] Attending Clinician U Nuria Pavon Attending Clinician Unavail able 1, [facility]ending Clinician Unavailable Jerry Ibarra MD Attending Clinician [phone] Caitlyn Rosario MD Attending Clinician [phone] CAITLYN ROSRAIO Attending Clinician UnavailCAITLYN Dunne Attending Clinician UnavailLoyda Baldwin MD Attending Clinician [phone] Maritza Ralph MA Attending Clinician Un available Erasto Trent RN Attending Clinician Unavail able Brianna Grant PA-C Attending Clinician [phone] 2, [facility] Attending Clinician Unavailable Kumar Choe PTA Attending Clinician UnavailCaitlyn Larose MD Attending Clinician [phone] Betty Grande MD Attending Clinician [phone] GRANDE, MOHAMMED Attending Clinician Unavailable Doctor Unassigned, [place] Attending Clinician U navailable Pob, [facility] Main Attending Clinician Unavailabl e Lab, Ang - Db Attending Clinician Unavailable Marko SCHOFIELD, Devaughn Attending Clinician [phone] Diana JESUS, Doron Attending Clinician [phone] Ebrahim SALES ACCOUNT COORDINATOR, Meseret Attending Clinician [phone] Unknown, Attending Attending Clinician Unavailab MESERET Bay Attending Clinician Unavailable DEVAUGHN VEGA Attending Clinician Unavailab le Nurse, Zuhair Salcedo Attending Clinician Unavailable DIANA, DORON Attending Clinician Unavailab le 2, [facility] Attending Clinician Unavailable Stacey SCHOFIELD, Jerry Jackson Attending Clinician [phone] Aysha Alonso MD Attending Clinician [phone] TRACEY CEDENO Attending Clinician Unavailable Wilian SCHOFIELD, Tracey Attending Clinician [phone] UNKNOWN, ATTENDING Attending Clinician Unavailab CASSIA Ram Attending Clinician Unavailable Nimflorence SALES ACCOUNT COORDINATOR, Tennille Cain Attending Clinician [phone] KATIE CORTEZ Attending Clinician Unavailable Katlin PACKatie S Attending Clinician [phone] MARITZA BEAR Attending Clinician Unava ilable WONG GARCIAIA L Attending Clinician Unavailable King REENA MD, Mason Jorge Attending Clinician [phone] Flaquito YU, Vlad Lou Attending Clinician Unavail able VENECIA CALLOWAY Attending Clinician Unavailable Rene Kay MD Attending Clinician [phone] Venecia Calloway DO Attending Clinician [phone] MARIA DOLORES GAXIOLA Attending Clinician Unavailab Amelia Moore PA-C Attending Clinician [phone] Maria Dolores Lombardi Attending Clinician + [phone] Kevin Hamilton Attending Clinician +[phone] Nurse, [facility] Attending Clinician Un available MINESH STANFORD Attending Clinician Unavail able Cassia Parker MD Attending Clinician +[phone] Maritza Bear MD Attending Clinician [phone] Nurse, Ad[facility] Immunization Attending Clinician Unavailable Minesh Stanford DO Attending Clinician LIAM ROSS Attending Clinician Unavailable LILLI HANSON Attending Clinician Unavailable Raju_P Attending Clinician Unavailable JERRY IBARRA Admitting Clinician UnavailCAITLYN Dunne Admitting Clinician UnavailCaitlyn Dunne MD Admitting Clinician [phone] Caitlyn Rosario MD Admitting Clinician [phone] CASSIA PARKER Admitting Clinician Unavailable VENECIA CALLOWAY Admitting Clinician Unavailable Venecia Calloway DO Admitting Clinician [phone] Che_Daisy Admitting Clinician Unavailable Payers Payer Name Policy Type Policy Number Effective Date Expirati on Date Source [employer] LIFE [id number] 2020 00:00:00 [place]: Askuity [id number] 2004 00:00:00 Link Trigger [facility] [id number] 2008 00:00:00 Problems Condition Name Condition Details Condition Category Status Onset Date Resolution Date Last Treatment Date Treating Clinician Comments Source Preoperati ve cardiovasc ular examinatio n Preoperati ve cardiovasc ular examinatio n Disease Active 10-23 00:00: 00 [facility] Prediabete s Prediabete s Disease Active 10-23 00:00: 00 [facility] Pre-op testing Pre-op testing Disease Active 09-11 00:00: 00 [facility] Primary osteoarthr itis of left hip Primary osteoarthr itis of left hip Disease Active 09-11 00:00: 00 [facility] Allergic rhinitis Allergic rhinitis Disease Active 07-15 00:00: 00 [facility] 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 Disease Active 07-15 00:00: 00 [facility] Hearing loss Hearing loss Disease Active 07-15 00:00: 00 [facility] Hemangioma Hemangioma Disease Active 07-15 00:00: 00 [facility] Impacted cerumen Impacted cerumen Disease Active 07-15 00:00: 00 [facility] Tinnitus Tinnitus Disease Active 07-15 00:00: 00 [facility] Pneumonia due to COVID-19 virus Pneumonia due to COVID-19 virus Disease Active 2021-04 00:00: 00 [facility] Troponin I above reference range Troponin I above reference range Disease Active 2021-04 00:00: 00 [facility] Other chest pain Other chest pain Disease Active 2021-04 00:00: 00 [facility] Coronaviru s infection Coronaviru s infection Disease Active 2021-04 00:00: 00 [facility] Primary osteoarthr itis of left knee Primary osteoarthr itis of left knee Disease Active 10-27 00:00: 00 [facility] GERD (gastroeso phageal reflux disease) GERD (gastroeso phageal reflux disease) Disease Active 07-02 00:00: 00 [facility] Vitamin D deficiency Vitamin D deficiency Disease Active 07-02 00:00: 00 Overview: Formattin g of this note might be different from the original. 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 [facility] Osteoporos is Osteoporos is Disease Active 07-02 00:00: 00 [facility] Mixed hyperlipid emia Mixed hyperlipid emia Disease Active 07-02 00:00: 00 [facility] Actinic keratosis Actinic keratosis Disease Active 07-02 00:00: 00 [facility] Allergies, Adverse Reactions, Alerts Allergy Name Allergy Type Status Severity Reaction(s) Onset Date Inactive Date Treating Clinician Comments Source NSAIDS (NON-EHSAN ROIDAL ANTI-INF LAMMATOR Y DRUG) Drug Class Active Med Palpitations 9-16 00:00: 00 [facility] Nsaids (Non-Ehsan roidal Anti-Inf lammator y Drug) Propensi ty to adverse reaction s to drug Active Palpitations 12-31 00:00: 00 [facility] Nsaids (Non-Ehsan roidal Anti-Inf lammator y Drug) Propensi ty to adverse reaction s to drug Active Palpitations 12-31 00:00: 00 [facility] LATEX DRUG INGREDI Active ITCHING 06-02 00:00: 00 [facility] Latex Propensi ty to adverse reaction s Active Itching 06-02 00:00: 00 [facility] TRAMADOL DRUG INGREDI Active Dizziness 04-20 00:00: 00 [facility] Tramadol Propensi ty to adverse reaction s Active Nausea and/or Vomiting 04-20 00:00: 00 [facility] CODEINE DRUG INGREDI Active Dizziness 11-08 00:00: 00 [facility] Codeine Propensi ty to adverse reaction s Active Dizziness 11-08 00:00: 00 [facility] Social History Social Habit Start Date Stop Date Quantity Comments Source Gender identity [facility] ASSERTION [facility] History of Social function 2024-05-13 00:00:00 2024-05-13 00:00:00 [facility] Alcoholic beverage intake 2023-09-12 00:00:00 2023-09-12 00:00:00 Current non-drinker of alcohol (finding) [facility] Tobacco use and exposure 2023-09-08 00:00:00 2023-09-08 00:00:00 Smokeless tobacco non-user [facility] Alcohol intake 2023-05-25 00:00:00 2023-05-25 00:00:00 Current non-drinker of alcohol (finding) [facility] Exposure to SARS-CoV-2 (event) 2022-08-28 00:00:00 2022-09-07 11:49:00 Not sure [facility] History SDOH Food Worry 2022-02-23 00:00:00 2022-02-23 00:00:00 1 [facility] History SDOH Food Scarcity 2022-02-23 00:00:00 2022-02-23 00:00:00 1 [facility] History SDOH Transport Med 2022-02-23 00:00:00 2022-02-23 00:00:00 2 [facility] History SDOH Transport Non-Med 2022-02-23 00:00:00 2022-02-23 00:00:00 2 [facility] Tobacco Comment 2022-02-20 00:00:00 2022-02-20 00:00:00 Quit in her 60's [facility] History of tobacco use 1974-04-17 00:00:00 Cigarette Smoker [facility] Sex assigned at 1940 00:00:00 1940 00:00:00 [facility] Smoking Status Start Date Stop Date Source Ex-smoker 2023-09-08 00:00:00 2023-09-08 00:00[facility]00 [facility] Medications Ordered Medication Name Filled Medication Name Start Date Stop Date Current Medication? 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 For up to 7 days [facility] HYDROcodone -acetaminop hen 5-325 mg tablet 01-09 00:00: 00 01-17 04:59 :00 No [id number] 1{tbl} Take 1 tablet by mouth every 6 (six) hours as needed for Pain (scale 4-6) for up to 7 days. Indication s: acute pain [facility] FENTanyl (PF) (SUBLIMAZE) injection 25 mcg 01-07 16:29: 54 01-07 21:50 :05 No 25ug 25 mcg, Slow IV Push, Q5MIN PRN, 4 doses, Starting on Mon01/08/24 at 1129, Until Mon01/08/24 at 1650, Routine, Pain Scale 4-6, PACU [facility] ondansetron (ZOFRAN (PF)) injection 4 mg 01-07 16:29: 54 01-07 21:50 :05 No 4mg 4 mg, Slow IV Push, PRN, 1 dose, Starting on Mon01/08/24 at 1129, Until Mon01/08/24 at 1650, Routine, Nausea and Vomiting (N/V), PACU [facility] BUPivacaine liposome (PF) (EXPAREL (PF)) 1.3 % (13.3 mg/mL) 266 mg, bupivacaine -epinephrin e-pf (SENSORCAIN E W/EPINEPHRI NE) 0.25 %-1:200,000 30 mL, NaCl 0.9% (NS) 70 mL 01-07 14:56: 00 01-07 16:14 :56 No PRN, Starting on Mon01/08/24 at 0956, Intra-op [facility] sodium chloride 0.9 % irrigation solution 01-07 14:51: 00 01-07 16:14 :56 No PRN, Starting on Mon01/08/24 at 0951, Until Mon01/08/24 at 1114, Intra-op [facility] celecoxib (CELEBREX) capsule 400 mg 01-07 12:45: 00 01-07 12:54 :00 No 400mg 400 mg, Oral, ONCE, 1 dose, On Mon01/08/24 at 0745, Routine, DSU Pre-op [facility] gabapentin (NEURONTIN) capsule 300 mg 01-07 12:45: 00 01-07 12:55 :00 No 300mg 300 mg, Oral, ONCE, 1 dose, On Mon01/08/24 at 0745, Routine, DSU Pre-op [facility] lactated ringers IV infusion 1,000 mL 01-07 12:45: 00 01-07 12:55 :00 No 1000mL at 42 mL/hr, 1,000 mL, IV Infusion, ONCE, 1 dose, On Mon01/08/24 at 0745, Routine, DSU Pre-op [facility] tranexamic acid (CYKLOKAPRO N) 1,000 mg in NaCl 0.9% (NS) 250 mL piggyback 01-07 05:00: 00 01-07 16:59 :00 No 1000mg [facility] aspirin 325 mg tablet 01-07 00:00: 00 02-05 04:59 :00 No [id number] 325mg Take 1 tablet by mouth in the morning and 1 tablet in the evening. Take with meals. Do all this for 28 days. [facility] HYDROcodone -acetaminop hen 5-325 mg tablet 01-07 00:00: 00 01-08 00:00 :00 No [id number] 1{tbl} Take 1 tablet by mouth every 6 (six) hours as needed for Pain (scale 4-6) or Pain (scale 7-10) for up to 7 days. Indication s: acute pain [facility] dexamethaso ne (DECADRON PHOSPHATE) injection 09-17 14:41: 00 09-17 15:07 :37 No PRN, Starting on Mon09/18/23 at 0941, Until Mon09/18/23 at 1007, Routine, Intra-op [facility] bupivacaine (preserv free) 0.5% (SENSORCAIN E MPF) injection 09-17 14:41: 00 09-17 15:07 :37 No PRN, Starting on Mon09/18/23 at 0941, Until Mon09/18/23 at 1007, Routine, Intra-op [facility] lactated ringers IV infusion 1,000 mL 09-17 14:00: 00 09-17 14:23 :00 No 1000mL at 42 mL/hr, 1,000 mL, IV Infusion, ONCE, 1 dose, On Mon09/18/23 at 0900, Routine, DSU Pre-op [facility] multivitami n tablet 09-17 11:24: 13 Yes 1{tbl} Take 1 tablet by mouth in the morning. Complete women's 50+, [employer] brand. [facility] turmeric root extract 500 mg Cap 09-17 11:24: 13 01-07 00:00 :00 No 500mg Take 500 mg by mouth 2 (two) times daily. [facility] aspirin 81 mg Cap 05-25 08:23: 51 Yes 3{capsu le} Take 3 capsules by mouth at bedtime. [facility] Cholecalcif melissa, Vitamin D3, (VITAMIN D3) 1,000 unit Cap 05-25 08:23: 51 09-07 00:00 :00 No 2000U Take 2 capsules by mouth in the morning. [facility] atorvastati n 20 mg tablet 12-27 00:00: 00 09-07 00:00 :00 No [id number] 20mg Take 1 tablet by mouth at bedtime. [facility] atorvastati n 20 mg tablet 12-21 00:00: 00 Yes [id number] 20mg Take 1 tablet by mouth at bedtime. [facility] Diclofenac Sodium (VOLTAREN) 1 % gel 10-21 00:00: 00 01-07 00:00 :00 No [id number] Take 2-4 grams three times a day as needed for pain [facility] meclizine 25 mg tablet 10-21 00:00: 00 09-07 00:00 :00 No [id number] 25mg Take 1 tablet by mouth 3 (three) times daily as needed for Dizziness or Nausea. [facility] NaCl 0.9% (NS) bolus infusion 1,000 mL 10-16 17:30: 00 10-16 17:57 :00 No 1000mL at 999 mL/hr, 1,000 mL, IV Infusion, ONCE, 1 dose, On 10/16/22 at 1230, VICTORIA [facility] meclizine (TRAVEL-EAS E (MECLIZINE) ) tablet 25 mg 10-16 16:45: 00 10-16 16:53 :00 No 25mg 25 mg, Oral, ONCE, 1 dose, [facility]10/16/22 [facility] 1145[facility] 10-16 15:40: 18 09-07 00:00 :00 No 3{capsu le} Take 3 capsules by mouth at bedtime. [facility] turmeric root extract 500 mg Cap 07-20 09:39: 06 Yes 500mg Take 500 mg by mouth 2 (two) times daily. [facility] loratadine 10 mg tablet 07-20 09:39: 06 Yes 10mg Take 1 tablet by mouth in the morning. [facility] turmeric root extract 500 mg Cap 07-20 09:39: 06 Yes 500mg Take 500 mg by mouth 2 (two) times daily. [facility] cyclobenzap rine 10 mg tablet 04-20 00:00: 00 09-07 00:00 :00 No [id number] 10mg Take 1 tablet by mouth at bedtime. [facility] predniSONE 20 mg tablet 2021-04 00:00: 00 04-20 00:00 :00 No [id number] 20mg Take 1 tablet by mouth in the morning. [facility] bromphenira mine-pseudo ephedrine-D M (BROMFED DM) 2-30-10 mg/5 mL syrup 2021-04 00:00: 00 04-20 00:00 :00 No [id number] 5mL Take 5 mL by mouth 3 (three) times daily as needed for Congestion /Allergies or Cough. [facility] zinc sulfate 50 mg zinc (220 mg) capsule 2021-04 00:00: 00 03-03 05:59 :00 No [id number] 50mg Take 1 capsule by mouth in the morning for 7 days. [facility] multivitami n tablet 2021-04 18:08: 11 Yes 1{tbl} Take 1 tablet by mouth daily. Complete women's 50+, [employer] brand. [facility] Cholecalcif melissa, Vitamin D3, (VITAMIN D3) 1,000 unit Cap 2021-04 18:08: 11 Yes 2{capsu le} Take 2 Caps by mouth daily. [facility] turmeric root extract 500 mg Cap 2021-04 18:08: 11 Yes 500mg Take 500 mg by mouth 2 (two) times daily. [facility] loratadine 10 mg tablet 2021-04 18:08: 11 09-07 00:00 :00 No 10mg Take 1 tablet by mouth in the morning. [facility] benzonatate 100 mg capsule 2021-04 00:00: 00 03-25 05:59 :00 No [id number] 200mg Take 2 capsules by mouth every 8 (eight) hours as needed for Cough for up to 30 days. [facility] ascorbic acid, vitamin C, 500 mg tablet 2021-04 00:00: 00 03-02 05:59 :00 No [id number] 500mg Take 1 tablet by mouth in the morning for 7 days. [facility] cholecalcif melissa (vitamin D3) tablet 2,000 Units 2021-04 15:00: 00 Yes 2000U 2,000 Units, Oral, DAILY, First dose (after last modificati on) on Mon02/21/22 at 0900, Until Discontinu ed, Routine [facility] aspirin chewable tablet 81 mg 2021-04 15:00: 00 Yes 81mg 81 mg, Oral, DAILY, First dose on Mon02/21/22 at 0900, Until Discontinu ed, Routine [facility] aspirin tablet 325 mg 2021-04 15:00: 00 02-21 02:12 :48 No 325mg 325 mg, Oral, DAILY, First dose on 02/21/22 at 0900, Until Discontinu ed, Routine [facility] aspirin tablet 325 mg 2021-04 03:00: 00 02-21 02:54 :00 No 325mg 325 mg, Oral, ONCE, 1 dose, On 02/20/22 at 2100, Routine [facility] zinc sulfate (ORAZINC) capsule 50 mg 2021-04 02:45: 00 Yes 50mg 50 mg, Oral, DAILY, First dose on 02/20/22 at 2044, Until Discontinu ed, Routine [facility] ascorbic acid (vitamin C) (VITAMIN C) tablet 500 mg 2021-04 02:45: 00 Yes 500mg 500 mg, Oral, BID, First dose on 02/20/22 at 2044, Until Discontinu ed, Routine [facility] azithromyci n (ZITHROMAX) tablet 500 mg 2021-04 02:45: 00 02-22 17:25 :08 No 500mg 500 mg, Oral, DAILY, 5 doses, First dose on 02/20/22 at 2044, Last dose on Mon02/24/22 at 0900, VICTORIA
Re ason for Anti-Infec tive: Empiric Therapy for Suspected Infection< br>Empiric Therapy Site: Respirator y
Durat ion of therapy: 5 days [facility] cholecalcif melissa (vitamin D3) tablet 1,000 Units 2021-04 02:45: 00 02-21 03:30 :16 No 1000U 1,000 Units, Oral, DAILY, First dose on 02/20/22 at 2044, Until Discontinu ed, Routine [facility] acetaminoph en (TYLENOL) tablet 650 mg 2021-04 02:36: 50 Yes 650mg 650 mg, Oral, Q6HPRN, Starting on 02/20/22 at 2035, Until Discontinu ed, Routine, Temp > 38.5 C, Pain (scale 1-3) [facility] dextrometho bernardhan-aníbalf enesin (ROBITUSSIN DM) 10-100 mg/5 mL solution 10 mL 2021-04 02:36: 38 Yes 10mL 10 mL, Oral, Q6HPRN, Starting on Mon02/20/22 at 2036, Until Discontinu ed, Routine, Cough [facility] enoxaparin (LOVENOX) injection 40 mg 2021-04 23:00: 00 Yes 40mg 40 mg, Subcutaneo us, DAILY, First dose on Mon02/20/22 at 1700, Until Discontinu ed, Routine [facility] ibuprofen (MOTRIN IB) tablet 200 mg 2021-04 22:34: 41 Yes 200mg 200 mg, Oral, Q4HPRN, Starting on Mon02/20/22 at 1634, Until Discontinu ed, Routine, Temp > 38.5 C [facility] NaCl 0.9% (NS) IV infusion 1,000 mL 2021-04 19:45: 00 02-21 14:00 :49 No 1000mL at 125 mL/hr, IV Infusion, CONTINUOUS , Starting on Mon02/20/22 at 1345, Until Mon02/21/22 at 0800, Routine [facility] iopamidol (ISOVUE 370-500 mL) injection 100 mL 2021-04 19:30: 00 02-20 19:45 :00 No [id number] 100mL 100 mL, Intravenou s, ONCE, 1 dose, On Mon02/20/22 at 1345, Routine [facility] molnupiravi r 200 mg capsule 2021-04 00:00: 00 02-22 00:00 :00 No [id number] 800mg Take 4 capsules by mouth every 12 (twelve) hours. [facility] benzonatate 100 mg capsule 2021-04 00:00: 00 02-22 00:00 :00 No [id number] 200mg Take 2 capsules by mouth every 8 (eight) hours as needed for Cough. [facility] multivitami n tablet 04-20 08:27: 15 Yes 1{tbl} Take 1 tablet by mouth daily. Complete women's 50+, [employer] brand. [facility] Cholecalcif melissa, Vitamin D3, (VITAMIN D3) 1,000 unit Cap 04-20 08:27: 15 Yes 2{capsu le} Take 2 Caps by mouth daily. [facility] turmeric root extract 500 mg Cap 04-20 08:27: 15 Yes 500mg Take 500 mg by mouth 2 (two) times daily. [facility] loratadine 10 mg tablet 04-20 08:27: 15 Yes 10mg Take 10 mg by mouth daily. [facility] mupirocin 2 % ointment 04-20 00:00: 00 09-07 00:00 :00 No [id number] Apply to area(s) 3 (three) times daily. [facility] Diclofenac Sodium (VOLTAREN) 1 % gel 04-20 00:00: 00 10-21 00:00 :00 No [id number] 2g gel BID to Left knee. [facility] triamcinolo ne (NASACORT) 55 mcg nasal inhaler 2017-04 00:00: 00 Yes [id number] 2{spray } Use 2 Sprays in each nostril daily. [facility] cycloSPORIN E 0.05 % drops 2016-04 00:00: 00 Yes [id number] 1[drp] Place 1 Drop in both eyes every 12 (twelve) hours. [facility] Immunizations Ordered Immunization Name Filled Immunization Name Date Status Comments Source Influenza Virus Vaccine,quad Im,preserve Free 65+ (FLUAD) 2023-01-20 00:00:00 Completed [facility] Influenza Virus Vaccine,quad Im,preserve Free 65+ (FLUAD) 2023-01-20 00:00:00 Completed [facility] Influenza Virus Vaccine,quad Im,preserve Free 65+ (FLUAD) 2023-01-20 00:00:00 Completed [facility] Remdesivir 2022-02-22 00:00:00 Completed [facility] Remdesivir 2022-02-22 00:00:00 Completed [facility] Remdesivir 2022-02-22 00:00:00 Completed [facility] Remdesivir 2022-02-22 00:00:00 Completed [facility] Remdesivir 2022-02-22 00:00:00 Completed [facility] Remdesivir 2022-02-22 00:00:00 Completed [facility] Remdesivir 2022-02-22 00:00:00 Completed [facility] Remdesivir 2022-02-22 00:00:00 Completed [facility] Remdesivir 2022-02-22 00:00:00 Completed [facility] Remdesivir 2022-02-22 00:00:00 Completed [facility] Remdesivir 2022-02-22 00:00:00 Completed [facility] Remdesivir 2022-02-22 00:00:00 Completed [facility] Remdesivir 2022-02-22 00:00:00 Completed [facility] Remdesivir 2022-02-22 00:00:00 Completed [facility] Remdesivir 2022-02-22 00:00:00 Completed [facility] Remdesivir 2022-02-22 00:00:00 Completed [facility] Remdesivir 2022-02-22 00:00:00 Completed [facility] Remdesivir 2022-02-22 00:00:00 Completed [facility] Remdesivir 2022-02-22 00:00:00 Completed [facility] Remdesivir 2022-02-22 00:00:00 Completed [facility] Remdesivir 2022-02-22 00:00:00 Completed [facility] Remdesivir 2022-02-22 00:00:00 Completed [facility] Remdesivir 2022-02-22 00:00:00 Completed [facility] Remdesivir 2022-02-22 00:00:00 Completed [facility] Remdesivir 2022-02-22 00:00:00 Completed [facility] Remdesivir 2022-02-22 00:00:00 Completed [facility] Remdesivir 2022-02-22 00:00:00 Completed [facility] Remdesivir 2022-02-21 00:00:00 Completed [facility] Remdesivir 2022-02-21 00:00:00 Completed [facility] Remdesivir 2022-02-21 00:00:00 Completed [facility] Remdesivir 2022-02-21 00:00:00 Completed [facility] Remdesivir 2022-02-21 00:00:00 Completed [facility] Remdesivir 2022-02-21 00:00:00 Completed [facility] Remdesivir 2022-02-21 00:00:00 Completed [facility] Remdesivir 2022-02-21 00:00:00 Completed [facility] Remdesivir 2022-02-21 00:00:00 Completed [facility] Remdesivir 2022-02-21 00:00:00 Completed [facility] Remdesivir 2022-02-21 00:00:00 Completed [facility] Remdesivir 2022-02-21 00:00:00 Completed [facility] Remdesivir 2022-02-21 00:00:00 Completed [facility] Remdesivir 2022-02-21 00:00:00 Completed [facility] Remdesivir 2022-02-21 00:00:00 Completed [facility] Remdesivir 2022-02-21 00:00:00 Completed [facility] Remdesivir 2022-02-21 00:00:00 Completed [facility] Remdesivir 2022-02-21 00:00:00 Completed [facility] Remdesivir 2022-02-21 00:00:00 Completed [facility] Remdesivir 2022-02-21 00:00:00 Completed [facility] Remdesivir 2022-02-21 00:00:00 Completed Remdesivir 2022-02-21 00:00:00 Completed Remdesivir 2022-02-21 00:00:00 Completed Remdesivir 2022-02-21 00:00:00 Completed [facility] Remdesivir 2022-02-21 00:00:00 Completed [facility] Remdesivir 2022-02-21 00:00:00 Completed [facility] Remdesivir 2022-02-20 00:00:00 Completed [facility] Remdesivir 2022-02-20 00:00:00 Completed [facility] Remdesivir 2022-02-20 00:00:00 Completed [facility] Remdesivir 2022-02-20 00:00:00 Completed [facility] Remdesivir 2022-02-20 00:00:00 Completed [facility] Remdesivir 2022-02-20 00:00:00 Completed [facility] Remdesivir 2022-02-20 00:00:00 Completed [facility] Remdesivir 2022-02-20 00:00:00 Completed [facility] Remdesivir 2022-02-20 00:00:00 Completed [facility] Remdesivir 2022-02-20 00:00:00 Completed [facility] Remdesivir 2022-02-20 00:00:00 Completed [facility] Remdesivir 2022-02-20 00:00:00 Completed [facility] Remdesivir 2022-02-20 00:00:00 Completed [facility] Remdesivir 2022-02-20 00:00:00 Completed [facility] Remdesivir 2022-02-20 00:00:00 Completed [facility] Remdesivir 2022-02-20 00:00:00 Completed [facility] Remdesivir 2022-02-20 00:00:00 Completed [facility] Remdesivir 2022-02-20 00:00:00 Completed [facility] Remdesivir 2022-02-20 00:00:00 Completed [facility] Remdesivir 2022-02-20 00:00:00 Completed [facility] Remdesivir 2022-02-20 00:00:00 Completed [facility] Remdesivir 2022-02-20 00:00:00 Completed [facility] Remdesivir 2022-02-20 00:00:00 Completed [facility] Remdesivir 2022-02-20 00:00:00 Completed [facility] Remdesivir 2022-02-20 00:00:00 Completed [facility] Remdesivir 2022-02-20 00:00:00 Completed [facility] Influenza High Dose Quad 2021-12-18 00:00:00 Completed [facility] Influenza High Dose Quad 2021-12-18 00:00:00 Completed [facility] Influenza High Dose Quad 2021-12-18 00:00:00 Completed [facility] Influenza High Dose Quad 2021-12-18 00:00:00 Completed [facility] Influenza High Dose Quad 2021-12-18 00:00:00 Completed [facility] Influenza High Dose Quad 2021-12-18 00:00:00 Completed [facility] Influenza High Dose Quad 2021-12-18 00:00:00 Completed [facility] Influenza High Dose Quad 2021-12-18 00:00:00 Completed [facility] Influenza High Dose Quad 2021-12-18 00:00:00 Completed [facility] Influenza High Dose Quad 2021-12-18 00:00:00 Completed [facility] Influenza High Dose Quad 2021-12-18 00:00:00 Completed [facility] Influenza High Dose Quad 2021-12-18 00:00:00 Completed [facility] Influenza High Dose Quad 2021-12-18 00:00:00 Completed Influenza High Dose Quad 2021-12-18 00:00:00 Completed Influenza High Dose Quad 2021-12-18 00:00:00 Completed SARS-COV-2 COVID-19 MODERNA 0.25ML BOOSTER VACCINE 2021-02-09 00:00:00 Completed [facility] SARS-COV-2 COVID-19 MODERNA 0.25ML BOOSTER VACCINE 2021-02-09 00:00:00 Completed [facility] SARS-COV-2 COVID-19 MODERNA 0.25ML BOOSTER VACCINE 2021-02-09 00:00:00 Completed [facility] SARS-COV-2 COVID-19 MODERNA 0.25ML BOOSTER VACCINE 2021-02-09 00:00:00 Completed [facility] SARS-COV-2 COVID-19 MODERNA 0.25ML BOOSTER VACCINE 2021-02-09 00:00:00 Completed [facility] SARS-COV-2 COVID-19 MODERNA 0.25ML BOOSTER VACCINE 2021-02-09 00:00:00 Completed [facility] SARS-COV-2 COVID-19 MODERNA 0.25ML BOOSTER VACCINE 2021-02-09 00:00:00 Completed [facility] SARS-COV-2 COVID-19 MODERNA 0.25ML BOOSTER VACCINE 2021-02-09 00:00:00 Completed [facility] SARS-COV-2 COVID-19 MODERNA 0.25ML BOOSTER VACCINE 2021-02-09 00:00:00 Completed [facility] SARS-COV-2 COVID-19 MODERNA 0.25ML BOOSTER VACCINE 2021-02-09 00:00:00 Completed [facility] SARS-COV-2 COVID-19 MODERNA 0.25ML BOOSTER VACCINE 2021-02-09 00:00:00 Completed [facility] SARS-COV-2 COVID-19 MODERNA 0.25ML BOOSTER VACCINE 2021-02-09 00:00:00 Completed [facility] SARS-COV-2 COVID-19 MODERNA 0.25ML BOOSTER VACCINE 2021-02-09 00:00:00 Completed [facility] SARS-COV-2 COVID-19 MODERNA 0.25ML BOOSTER VACCINE 2021-02-09 00:00:00 Completed [facility] SARS-COV-2 COVID-19 MODERNA 0.25ML BOOSTER VACCINE 2021-02-09 00:00:00 Completed [facility] SARS-COV-2 COVID-19 MODERNA 0.25ML BOOSTER VACCINE 2021-02-09 00:00:00 Completed [facility] SARS-COV-2 COVID-19 MODERNA 0.25ML BOOSTER VACCINE 2021-02-09 00:00:00 Completed [facility] SARS-COV-2 COVID-19 MODERNA 0.25ML BOOSTER VACCINE 2021-02-09 00:00:00 Completed [facility] SARS-COV-2 COVID-19 MODERNA 0.25ML BOOSTER VACCINE 2021-02-09 00:00:00 Completed [facility] SARS-COV-2 COVID-19 MODERNA 0.25ML BOOSTER VACCINE 2021-02-09 00:00:00 Completed [facility] SARS-COV-2 COVID-19 MODERNA 0.25ML BOOSTER VACCINE 2021-02-09 00:00:00 Completed [facility] SARS-COV-2 COVID-19 MODERNA 0.25ML BOOSTER VACCINE 2021-02-09 00:00:00 Completed [facility] SARS-COV-2 COVID-19 MODERNA 0.25ML BOOSTER VACCINE 2021-02-09 00:00:00 Completed [facility] SARS-COV-2 COVID-19 MODERNA BOOSTER VACCINE 2021-02-09 00:00:00 Completed [facility] SARS-COV-2 COVID-19 MODERNA BOOSTER VACCINE 2021-02-09 00:00:00 Completed [facility] SARS-COV-2 COVID-19 MODERNA BOOSTER VACCINE 2021-02-09 00:00:00 Completed [facility] SARS-COV-2 COVID-19 MODERNA BOOSTER VACCINE 2021-02-09 00:00:00 Completed [facility] SARS-COV-2 COVID-19 MODERNA BOOSTER VACCINE 2021-02-09 00:00:00 Completed [facility] SARS-COV-2 COVID-19 MODERNA 0.25ML BOOSTER VACCINE 2021-02-09 00:00:00 Completed [facility] SARS-COV-2 COVID-19 MODERNA 0.25ML BOOSTER VACCINE 2021-02-09 00:00:00 Completed [facility] SARS-COV-2 COVID-19 MODERNA 0.25ML BOOSTER VACCINE 2021-02-09 00:00:00 Completed [facility] SARS-COV-2 COVID-19 MODERNA 0.25ML BOOSTER VACCINE 2021-02-09 00:00:00 Completed [facility] SARS-COV-2 COVID-19 MODERNA 0.25ML BOOSTER VACCINE 2021-02-09 00:00:00 Completed [facility] Influenza High Dose Quad 2021-01-09 00:00:00 Completed [facility] Influenza High Dose Quad 2021-01-09 00:00:00 Completed [facility] Influenza High Dose Quad 2021-01-09 00:00:00 Completed [facility] Influenza High Dose Quad 2021-01-09 00:00:00 Completed [facility] Influenza High Dose Quad 2021-01-09 00:00:00 Completed [facility] Influenza High Dose Quad 2021-01-09 00:00:00 Completed [facility] Influenza High Dose Quad 2021-01-09 00:00:00 Completed [facility] Influenza High Dose Quad 2021-01-09 00:00:00 Completed [facility] Influenza High Dose Quad 2021-01-09 00:00:00 Completed [facility] Influenza High Dose Quad 2021-01-09 00:00:00 Completed [facility] Influenza High Dose Quad 2021-01-09 00:00:00 Completed [facility] Influenza High Dose Quad 2021-01-09 00:00:00 Completed [facility] Influenza High Dose Quad 2021-01-09 00:00:00 Completed [facility] Influenza High Dose Quad 2021-01-09 00:00:00 Completed Influenza High Dose Quad 2021-01-09 00:00:00 Completed Influenza High Dose Quad 2021-01-09 00:00:00 Completed Influenza High Dose 2020-12-16 00:00:00 Completed [facility] Influenza High Dose 2020-12-16 00:00:00 Completed [facility] Influenza High Dose 2020-12-16 00:00:00 Completed [facility] Influenza High Dose 2020-12-16 00:00:00 Completed [facility] Influenza High Dose 2020-12-16 00:00:00 Completed [facility] Influenza High Dose 2020-12-16 00:00:00 Completed [facility] Influenza High Dose 2020-12-16 00:00:00 Completed [facility] Influenza High Dose 2020-12-16 00:00:00 Completed [facility] Influenza High Dose 2020-12-16 00:00:00 Completed [facility] Influenza High Dose 2020-12-16 00:00:00 Completed [facility] Influenza High Dose 2020-12-16 00:00:00 Completed [facility] Influenza High Dose 2020-12-16 00:00:00 Completed [facility] Influenza High Dose 2020-12-16 00:00:00 Completed [facility] Influenza High Dose 2020-12-16 00:00:00 Completed [facility] Influenza High Dose 2020-12-16 00:00:00 Completed [facility] Influenza High Dose 2020-12-16 00:00:00 Completed [facility] Influenza High Dose 2020-12-16 00:00:00 Completed [facility] Influenza High Dose 2020-12-16 00:00:00 Completed [facility] Influenza High Dose 2020-12-16 00:00:00 Completed [facility] Influenza High Dose 2020-12-16 00:00:00 Completed [facility] Influenza High Dose 2020-12-16 00:00:00 Completed [facility] Influenza, High-Dose, Trivalent, PF (FLUZONE) 2020-12-16 00:00:00 Completed Influenza, High-Dose, Trivalent, PF (FLUZONE) 2020-12-16 00:00:00 Completed Influenza, High-Dose, Trivalent, PF (FLUZONE) 2020-12-16 00:00:00 Completed Influenza High Dose 2020-12-16 00:00:00 Completed [facility] Influenza High Dose 2020-12-16 00:00:00 Completed [facility] Influenza High Dose 2020-12-16 00:00:00 Completed [facility] Influenza High Dose 2020-12-16 00:00:00 Completed [facility] Influenza High Dose 2020-12-16 00:00:00 Completed [facility] Influenza High Dose 2020-12-16 00:00:00 Completed [facility] Influenza High Dose 2020-12-16 00:00:00 Completed [facility] Influenza High Dose 2020-12-16 00:00:00 Completed [facility] Influenza High Dose 2020-12-16 00:00:00 Completed [facility] Influenza High Dose 2020-12-16 00:00:00 Completed [facility] TDAP 2020-08-21 00:00:00 Completed [facility] TDAP 2020-08-21 00:00:00 Completed [facility] TDAP 2020-08-21 00:00:00 Completed [facility] TDAP 2020-08-21 00:00:00 Completed [facility] TDAP 2020-08-21 00:00:00 Completed [facility] TDAP 2020-08-21 00:00:00 Completed [facility] TDAP 2020-08-21 00:00:00 Completed [facility] TDAP 2020-08-21 00:00:00 Completed [facility] TDAP 2020-08-21 00:00:00 Completed [facility] TDAP 2020-08-21 00:00:00 Completed [facility] TDAP 2020-08-21 00:00:00 Completed [facility] TDAP 2020-08-21 00:00:00 Completed [facility] TDAP 2020-08-21 00:00:00 Completed [facility] TDAP 2020-08-21 00:00:00 Completed [facility] TDAP 2020-08-21 00:00:00 Completed [facility] TDAP 2020-08-21 00:00:00 Completed [facility] TDAP 2020-08-21 00:00:00 Completed [facility] TDAP 2020-08-20 00:00:00 Completed [facility] TDAP 2020-08-20 00:00:00 Completed [facility] TDAP 2020-08-20 00:00:00 Completed [facility] TDAP 2020-08-20 00:00:00 Completed [facility] TDAP 2020-08-20 00:00:00 Completed [facility] TDAP 2020-08-20 00:00:00 Completed [facility] TDAP 2020-08-20 00:00:00 Completed [facility] TDAP 2020-08-20 00:00:00 Completed [facility] TDAP 2020-08-20 00:00:00 Completed [facility] TDAP 2020-08-20 00:00:00 Completed [facility] TDAP 2020-08-20 00:00:00 Completed [facility] TDAP 2020-08-20 00:00:00 Completed [facility] TDAP 2020-08-20 00:00:00 Completed [facility] TDAP 2020-08-20 00:00:00 Completed [facility] TDAP 2020-08-20 00:00:00 Completed TDAP 2020-08-20 00:00:00 Completed TDAP 2020-08-20 00:00:00 Completed SARS-COV-2 COVID-19 MODERNA 12+ YRS VACCINE 2020-05-19 00:00:00 Completed [facility] SARS-COV-2 COVID-19 MODERNA 12+ YRS VACCINE 2020-05-19 00:00:00 Completed [facility] SARS-COV-2 COVID-19 MODERNA 12+ YRS VACCINE 2020-05-19 00:00:00 Completed [facility] SARS-COV-2 COVID-19 MODERNA 12+ YRS VACCINE 2020-05-19 00:00:00 Completed [facility] SARS-COV-2 COVID-19 MODERNA 12+ YRS VACCINE 2020-05-19 00:00:00 Completed [facility] SARS-COV-2 COVID-19 MODERNA 12+ YRS VACCINE 2020-05-19 00:00:00 Completed [facility] SARS-COV-2 COVID-19 MODERNA 12+ YRS VACCINE 2020-05-19 00:00:00 Completed [facility] SARS-COV-2 COVID-19 MODERNA 12+ YRS VACCINE 2020-05-19 00:00:00 Completed [facility] SARS-COV-2 COVID-19 MODERNA 12+ YRS VACCINE 2020-05-19 00:00:00 Completed [facility] SARS-COV-2 COVID-19 MODERNA 12+ YRS VACCINE 2020-05-19 00:00:00 Completed [facility] SARS-COV-2 COVID-19 MODERNA 12+ YRS VACCINE 2020-05-19 00:00:00 Completed [facility] SARS-COV-2 COVID-19 MODERNA 12+ YRS VACCINE 2020-05-19 00:00:00 Completed [facility] SARS-COV-2 COVID-19 MODERNA 12+ YRS VACCINE 2020-05-19 00:00:00 Completed [facility] SARS-COV-2 COVID-19 MODERNA 12+ YRS VACCINE 2020-05-19 00:00:00 Completed [facility] SARS-COV-2 COVID-19 MODERNA 12+ YRS VACCINE 2020-05-19 00:00:00 Completed [facility] SARS-COV-2 COVID-19 MODERNA 12+ YRS VACCINE 2020-05-19 00:00:00 Completed [facility] SARS-COV-2 COVID-19 MODERNA 12+ YRS VACCINE 2020-05-19 00:00:00 Completed [facility] SARS-COV-2 COVID-19 MODERNA 12+ YRS VACCINE 2020-05-19 00:00:00 Completed [facility] SARS-COV-2 COVID-19 MODERNA 12+ YRS VACCINE 2020-05-19 00:00:00 Completed [facility] SARS-COV-2 COVID-19 MODERNA 12+ YRS VACCINE 2020-05-19 00:00:00 Completed [facility] SARS-COV-2 COVID-19 MODERNA 12+ YRS VACCINE 2020-05-19 00:00:00 Completed [facility] SARS-COV-2 COVID-19 MODERNA 12+ YRS VACCINE 2020-05-19 00:00:00 Completed SARS-COV-2 COVID-19 MODERNA 12+ YRS VACCINE 2020-05-19 00:00:00 Completed SARS-COV-2 COVID-19 MODERNA 12+ YRS VACCINE 2020-05-19 00:00:00 Completed SARS-COV-2 COVID-19 MODERNA VACCINE 2020-05-19 00:00:00 Completed [facility] SARS-COV-2 COVID-19 MODERNA VACCINE 2020-05-19 00:00:00 Completed [facility] SARS-COV-2 COVID-19 MODERNA VACCINE 2020-05-19 00:00:00 Completed [facility] SARS-COV-2 COVID-19 MODERNA VACCINE 2020-05-19 00:00:00 Completed [facility] SARS-COV-2 COVID-19 MODERNA VACCINE 2020-05-19 00:00:00 Completed [facility] SARS-COV-2 COVID-19 MODERNA 12+ YRS VACCINE 2020-05-19 00:00:00 Completed [facility] SARS-COV-2 COVID-19 MODERNA 12+ YRS VACCINE 2020-05-19 00:00:00 Completed [facility] SARS-COV-2 COVID-19 MODERNA 12+ YRS VACCINE 2020-05-19 00:00:00 Completed [facility] SARS-COV-2 COVID-19 MODERNA 12+ YRS VACCINE 2020-05-19 00:00:00 Completed [facility] SARS-COV-2 COVID-19 MODERNA 12+ YRS VACCINE 2020-05-19 00:00:00 Completed [facility] SARS-COV-2 COVID-19 MODERNA 12+ YRS VACCINE 2020-04-21 00:00:00 Completed [facility] SARS-COV-2 COVID-19 MODERNA 12+ YRS VACCINE 2020-04-21 00:00:00 Completed [facility] SARS-COV-2 COVID-19 MODERNA 12+ YRS VACCINE 2020-04-21 00:00:00 Completed [facility] SARS-COV-2 COVID-19 MODERNA 12+ YRS VACCINE 2020-04-21 00:00:00 Completed [facility] SARS-COV-2 COVID-19 MODERNA 12+ YRS VACCINE 2020-04-21 00:00:00 Completed [facility] SARS-COV-2 COVID-19 MODERNA 12+ YRS VACCINE 2020-04-21 00:00:00 Completed [facility] SARS-COV-2 COVID-19 MODERNA 12+ YRS VACCINE 2020-04-21 00:00:00 Completed [facility] SARS-COV-2 COVID-19 MODERNA 12+ YRS VACCINE 2020-04-21 00:00:00 Completed [facility] SARS-COV-2 COVID-19 MODERNA 12+ YRS VACCINE 2020-04-21 00:00:00 Completed [facility] SARS-COV-2 COVID-19 MODERNA 12+ YRS VACCINE 2020-04-21 00:00:00 Completed [facility] SARS-COV-2 COVID-19 MODERNA 12+ YRS VACCINE 2020-04-21 00:00:00 Completed [facility] SARS-COV-2 COVID-19 MODERNA 12+ YRS VACCINE 2020-04-21 00:00:00 Completed [facility] SARS-COV-2 COVID-19 MODERNA 12+ YRS VACCINE 2020-04-21 00:00:00 Completed [facility] SARS-COV-2 COVID-19 MODERNA 12+ YRS VACCINE 2020-04-21 00:00:00 Completed [facility] SARS-COV-2 COVID-19 MODERNA 12+ YRS VACCINE 2020-04-21 00:00:00 Completed [facility] SARS-COV-2 COVID-19 MODERNA 12+ YRS VACCINE 2020-04-21 00:00:00 Completed [facility] SARS-COV-2 COVID-19 MODERNA 12+ YRS VACCINE 2020-04-21 00:00:00 Completed [facility] SARS-COV-2 COVID-19 MODERNA 12+ YRS VACCINE 2020-04-21 00:00:00 Completed [facility] SARS-COV-2 COVID-19 MODERNA 12+ YRS VACCINE 2020-04-21 00:00:00 Completed [facility] SARS-COV-2 COVID-19 MODERNA 12+ YRS VACCINE 2020-04-21 00:00:00 Completed [facility] SARS-COV-2 COVID-19 MODERNA 12+ YRS VACCINE 2020-04-21 00:00:00 Completed [facility] SARS-COV-2 COVID-19 MODERNA 12+ YRS VACCINE 2020-04-21 00:00:00 Completed [facility] SARS-COV-2 COVID-19 MODERNA 12+ YRS VACCINE 2020-04-21 00:00:00 Completed [facility] SARS-COV-2 COVID-19 MODERNA VACCINE 2020-04-21 00:00:00 Completed [facility] SARS-COV-2 COVID-19 MODERNA VACCINE 2020-04-21 00:00:00 Completed [facility] SARS-COV-2 COVID-19 MODERNA VACCINE 2020-04-21 00:00:00 Completed [facility] SARS-COV-2 COVID-19 MODERNA VACCINE 2020-04-21 00:00:00 Completed [facility] SARS-COV-2 COVID-19 MODERNA VACCINE 2020-04-21 00:00:00 Completed [facility] SARS-COV-2 COVID-19 MODERNA 12+ YRS VACCINE 2020-04-21 00:00:00 Completed [facility] SARS-COV-2 COVID-19 MODERNA 12+ YRS VACCINE 2020-04-21 00:00:00 Completed [facility] SARS-COV-2 COVID-19 MODERNA 12+ YRS VACCINE 2020-04-21 00:00:00 Completed [facility] SARS-COV-2 COVID-19 MODERNA 12+ YRS VACCINE 2020-04-21 00:00:00 Completed [facility] SARS-COV-2 COVID-19 MODERNA 12+ YRS VACCINE 2020-04-21 00:00:00 Completed [facility] Influenza High Dose Quad 2020-01-11 00:00:00 Completed [facility] Influenza High Dose Quad 2020-01-11 00:00:00 Completed [facility] Influenza High Dose Quad 2020-01-11 00:00:00 Completed [facility] Influenza High Dose Quad 2020-01-11 00:00:00 Completed [facility] Influenza High Dose Quad 2020-01-11 00:00:00 Completed [facility] Influenza High Dose Quad 2020-01-11 00:00:00 Completed [facility] Influenza High Dose Quad 2020-01-11 00:00:00 Completed [facility] Influenza High Dose Quad 2020-01-11 00:00:00 Completed [facility] Influenza High Dose Quad 2020-01-11 00:00:00 Completed [facility] Influenza High Dose Quad 2020-01-11 00:00:00 Completed [facility] Influenza High Dose Quad 2020-01-11 00:00:00 Completed [facility] Influenza High Dose Quad 2020-01-11 00:00:00 Completed [facility] Influenza High Dose Quad 2020-01-11 00:00:00 Completed [facility] Influenza High Dose Quad 2020-01-11 00:00:00 Completed [facility] Influenza High Dose Quad 2020-01-11 00:00:00 Completed [facility] Influenza High Dose Quad 2020-01-11 00:00:00 Completed [facility] Influenza High Dose Quad 2020-01-11 00:00:00 Completed [facility] Influenza High Dose Quad 2020-01-11 00:00:00 Completed [facility] Influenza High Dose Quad 2020-01-11 00:00:00 Completed [facility] Influenza High Dose Quad 2020-01-11 00:00:00 Completed [facility] Influenza High Dose Quad 2020-01-11 00:00:00 Completed Influenza High Dose Quad 2020-01-11 00:00:00 Completed Influenza High Dose Quad 2020-01-11 00:00:00 Completed Influenza High Dose Quad 2020-01-11 00:00:00 Completed [facility] Influenza High Dose Quad 2020-01-11 00:00:00 Completed [facility] Influenza High Dose Quad 2020-01-11 00:00:00 Completed [facility] Influenza High Dose Quad 2020-01-11 00:00:00 Completed [facility] Influenza High Dose Quad 2020-01-11 00:00:00 Completed [facility] Influenza High Dose Quad 2020-01-11 00:00:00 Completed [facility] Influenza High Dose Quad 2020-01-11 00:00:00 Completed [facility] Influenza High Dose Quad 2020-01-11 00:00:00 Completed [facility] Influenza High Dose Quad 2020-01-11 00:00:00 Completed [facility] Influenza High Dose Quad 2020-01-11 00:00:00 Completed [facility] Influenza High Dose 2018-12-17 00:00:00 Completed [facility] Influenza High Dose 2018-12-17 00:00:00 Completed [facility] Influenza High Dose 2018-12-17 00:00:00 Completed [facility] Influenza High Dose 2018-12-17 00:00:00 Completed [facility] Influenza High Dose 2018-12-17 00:00:00 Completed [facility] Influenza High Dose 2018-12-17 00:00:00 Completed [facility] Influenza High Dose 2018-12-17 00:00:00 Completed [facility] Influenza High Dose 2018-12-17 00:00:00 Completed [facility] Influenza High Dose 2018-12-17 00:00:00 Completed [facility] Influenza High Dose 2018-12-17 00:00:00 Completed [facility] Influenza High Dose 2018-12-17 00:00:00 Completed [facility] Influenza High Dose 2018-12-17 00:00:00 Completed [facility] Influenza High Dose 2018-12-17 00:00:00 Completed [facility] Influenza High Dose 2018-12-17 00:00:00 Completed [facility] Influenza High Dose 2018-12-17 00:00:00 Completed [facility] Influenza High Dose 2018-12-17 00:00:00 Completed [facility] Influenza High Dose 2018-12-17 00:00:00 Completed [facility] Influenza High Dose 2018-12-17 00:00:00 Completed [facility] Influenza High Dose 2018-12-17 00:00:00 Completed [facility] Influenza High Dose 2018-12-17 00:00:00 Completed [facility] Influenza, High-Dose, Trivalent, PF (FLUZONE) 2018-12-17 00:00:00 Completed Influenza, High-Dose, Trivalent, PF (FLUZONE) 2018-12-17 00:00:00 Completed Influenza, High-Dose, Trivalent, PF (FLUZONE) 2018-12-17 00:00:00 Completed Influenza High Dose 2018-12-17 00:00:00 Completed [facility] Influenza High Dose 2018-12-17 00:00:00 Completed [facility] Influenza High Dose 2018-12-17 00:00:00 Completed [facility] Influenza High Dose 2018-12-17 00:00:00 Completed [facility] Influenza High Dose 2018-12-17 00:00:00 Completed [facility] Influenza High Dose 2018-12-17 00:00:00 Completed [facility] Influenza High Dose 2018-12-17 00:00:00 Completed [facility] Influenza High Dose 2018-12-17 00:00:00 Completed [facility] Influenza High Dose 2018-12-17 00:00:00 Completed [facility] Influenza High Dose 2018-12-17 00:00:00 Completed [facility] Zoster Vaccine Recombinant 2018-06-19 00:00:00 Completed [facility] Zoster Vaccine Recombinant 2018-06-19 00:00:00 Completed [facility] Zoster Vaccine Recombinant 2018-06-19 00:00:00 Completed [facility] Zoster Vaccine Recombinant 2018-06-19 00:00:00 Completed [facility] Zoster Vaccine Recombinant 2018-06-19 00:00:00 Completed [facility] Zoster Vaccine Recombinant 2018-06-19 00:00:00 Completed [facility] Zoster Vaccine Recombinant 2018-06-19 00:00:00 Completed [facility] Zoster Vaccine Recombinant 2018-06-19 00:00:00 Completed [facility] Zoster Vaccine Recombinant 2018-06-19 00:00:00 Completed [facility] Zoster Vaccine Recombinant 2018-06-19 00:00:00 Completed [facility] Zoster Vaccine Recombinant 2018-06-19 00:00:00 Completed [facility] Zoster Vaccine Recombinant 2018-06-19 00:00:00 Completed [facility] Zoster Vaccine Recombinant 2018-06-19 00:00:00 Completed [facility] Zoster Vaccine Recombinant 2018-06-19 00:00:00 Completed [facility] Zoster Vaccine Recombinant 2018-06-19 00:00:00 Completed [facility] Zoster Vaccine Recombinant 2018-06-19 00:00:00 Completed [facility] Zoster Vaccine Recombinant 2018-06-19 00:00:00 Completed [facility] Zoster Vaccine Recombinant 2018-06-19 00:00:00 Completed [facility] Zoster Vaccine Recombinant 2018-06-19 00:00:00 Completed [facility] Zoster Vaccine Recombinant 2018-06-19 00:00:00 Completed [facility] Zoster Vaccine Recombinant 2018-06-19 00:00:00 Completed [facility] Zoster Vaccine Recombinant 2018-06-19 00:00:00 Completed Zoster Vaccine Recombinant 2018-06-19 00:00:00 Completed Zoster Vaccine Recombinant 2018-06-19 00:00:00 Completed Zoster Vaccine Recombinant 2018-06-19 00:00:00 Completed [facility] Zoster Vaccine Recombinant 2018-06-19 00:00:00 Completed [facility] Zoster Vaccine Recombinant 2018-06-19 00:00:00 Completed [facility] Zoster Vaccine Recombinant 2018-06-19 00:00:00 Completed [facility] Zoster Vaccine Recombinant 2018-06-19 00:00:00 Completed [facility] Zoster Vaccine Recombinant 2018-06-19 00:00:00 Completed [facility] Zoster Vaccine Recombinant 2018-06-19 00:00:00 Completed [facility] Zoster Vaccine Recombinant 2018-06-19 00:00:00 Completed [facility] Zoster Vaccine Recombinant 2018-06-19 00:00:00 Completed [facility] Zoster Vaccine Recombinant 2018-06-19 00:00:00 Completed [facility] Influenza High Dose 2018-01-14 00:00:00 Completed [facility] Influenza High Dose 2018-01-14 00:00:00 Completed [facility] Influenza High Dose 2018-01-14 00:00:00 Completed [facility] Influenza High Dose 2018-01-14 00:00:00 Completed [facility] Influenza High Dose 2018-01-14 00:00:00 Completed [facility] Influenza High Dose 2018-01-14 00:00:00 Completed [facility] Influenza High Dose 2018-01-14 00:00:00 Completed [facility] Influenza High Dose 2018-01-14 00:00:00 Completed [facility] Influenza High Dose 2018-01-14 00:00:00 Completed [facility] Influenza High Dose 2018-01-14 00:00:00 Completed [facility] Influenza High Dose 2018-01-14 00:00:00 Completed [facility] Influenza High Dose 2018-01-14 00:00:00 Completed [facility] Influenza High Dose 2018-01-14 00:00:00 Completed [facility] Influenza High Dose 2018-01-14 00:00:00 Completed [facility] Influenza High Dose 2018-01-14 00:00:00 Completed [facility] Influenza High Dose 2018-01-14 00:00:00 Completed [facility] Influenza High Dose 2018-01-14 00:00:00 Completed [facility] Influenza High Dose 2018-01-14 00:00:00 Completed [facility] Influenza High Dose 2018-01-14 00:00:00 Completed [facility] Influenza High Dose 2018-01-14 00:00:00 Completed [facility] Influenza, High-Dose, Trivalent, PF (FLUZONE) 2018-01-14 00:00:00 Completed Influenza, High-Dose, Trivalent, PF (FLUZONE) 2018-01-14 00:00:00 Completed Influenza, High-Dose, Trivalent, PF (FLUZONE) 2018-01-14 00:00:00 Completed Influenza High Dose 2018-01-14 00:00:00 Completed [facility] Influenza High Dose 2018-01-14 00:00:00 Completed [facility] Influenza High Dose 2018-01-14 00:00:00 Completed [facility] Influenza High Dose 2018-01-14 00:00:00 Completed [facility] Influenza High Dose 2018-01-14 00:00:00 Completed [facility] Influenza High Dose 2018-01-14 00:00:00 Completed [facility] Influenza High Dose 2018-01-14 00:00:00 Completed [facility] Influenza High Dose 2018-01-14 00:00:00 Completed [facility] Influenza High Dose 2018-01-14 00:00:00 Completed [facility] Influenza High Dose 2018-01-14 00:00:00 Completed [facility] Zoster Vaccine Recombinant 2017-12-29 00:00:00 Completed [facility] Zoster Vaccine Recombinant 2017-12-29 00:00:00 Completed [facility] Zoster Vaccine Recombinant 2017-12-29 00:00:00 Completed [facility] Zoster Vaccine Recombinant 2017-12-29 00:00:00 Completed [facility] Zoster Vaccine Recombinant 2017-12-29 00:00:00 Completed [facility] Zoster Vaccine Recombinant 2017-12-29 00:00:00 Completed [facility] Zoster Vaccine Recombinant 2017-12-29 00:00:00 Completed [facility] Zoster Vaccine Recombinant 2017-12-29 00:00:00 Completed [facility] Zoster Vaccine Recombinant 2017-12-29 00:00:00 Completed [facility] Zoster Vaccine Recombinant 2017-12-29 00:00:00 Completed [facility] Zoster Vaccine Recombinant 2017-12-29 00:00:00 Completed [facility] Zoster Vaccine Recombinant 2017-12-29 00:00:00 Completed [facility] Zoster Vaccine Recombinant 2017-12-29 00:00:00 Completed [facility] Zoster Vaccine Recombinant 2017-12-29 00:00:00 Completed [facility] Zoster Vaccine Recombinant 2017-12-29 00:00:00 Completed [facility] Zoster Vaccine Recombinant 2017-12-29 00:00:00 Completed [facility] Zoster Vaccine Recombinant 2017-12-29 00:00:00 Completed [facility] Zoster Vaccine Recombinant 2017-12-29 00:00:00 Completed [facility] Zoster Vaccine Recombinant 2017-12-29 00:00:00 Completed [facility] Zoster Vaccine Recombinant 2017-12-29 00:00:00 Completed [facility] Zoster Vaccine Recombinant 2017-12-29 00:00:00 Completed Zoster Vaccine Recombinant 2017-12-29 00:00:00 Completed Zoster Vaccine Recombinant 2017-12-29 00:00:00 Completed Zoster Vaccine Recombinant 2017-12-29 00:00:00 Completed [facility] Zoster Vaccine Recombinant 2017-12-29 00:00:00 Completed [facility] Zoster Vaccine Recombinant 2017-12-29 00:00:00 Completed [facility] Zoster Vaccine Recombinant 2017-12-29 00:00:00 Completed [facility] Zoster Vaccine Recombinant 2017-12-29 00:00:00 Completed [facility] Zoster Vaccine Recombinant 2017-12-29 00:00:00 Completed [facility] Zoster Vaccine Recombinant 2017-12-29 00:00:00 Completed [facility] Zoster Vaccine Recombinant 2017-12-29 00:00:00 Completed [facility] Zoster Vaccine Recombinant 2017-12-29 00:00:00 Completed [facility] Zoster Vaccine Recombinant 2017-12-29 00:00:00 Completed [facility] Influenza High Dose 2017-01-29 00:00:00 Completed [facility] Influenza High Dose 2017-01-29 00:00:00 Completed [facility] Influenza High Dose 2017-01-29 00:00:00 Completed [facility] Influenza High Dose 2017-01-29 00:00:00 Completed [facility] Influenza High Dose 2017-01-29 00:00:00 Completed [facility] Influenza High Dose 2017-01-29 00:00:00 Completed [facility] Influenza High Dose 2017-01-29 00:00:00 Completed [facility] Influenza High Dose 2017-01-29 00:00:00 Completed [facility] Influenza High Dose 2017-01-29 00:00:00 Completed [facility] Influenza High Dose 2017-01-29 00:00:00 Completed [facility] Influenza High Dose 2017-01-29 00:00:00 Completed [facility] Influenza High Dose 2017-01-29 00:00:00 Completed [facility] Influenza High Dose 2017-01-29 00:00:00 Completed [facility] Influenza High Dose 2017-01-29 00:00:00 Completed [facility] Influenza High Dose 2017-01-29 00:00:00 Completed [facility] Influenza High Dose 2017-01-29 00:00:00 Completed [facility] Influenza High Dose 2017-01-29 00:00:00 Completed [facility] Influenza High Dose 2017-01-29 00:00:00 Completed [facility] Influenza High Dose 2017-01-29 00:00:00 Completed [facility] Influenza High Dose 2017-01-29 00:00:00 Completed [facility] Influenza, High-Dose, Trivalent, PF (FLUZONE) 2017-01-29 00:00:00 Completed Influenza, High-Dose, Trivalent, PF (FLUZONE) 2017-01-29 00:00:00 Completed Influenza, High-Dose, Trivalent, PF (FLUZONE) 2017-01-29 00:00:00 Completed Influenza High Dose 2017-01-29 00:00:00 Completed [facility] Influenza High Dose 2017-01-29 00:00:00 Completed [facility] Influenza High Dose 2017-01-29 00:00:00 Completed [facility] Influenza High Dose 2017-01-29 00:00:00 Completed [facility] Influenza High Dose 2017-01-29 00:00:00 Completed [facility] Influenza High Dose 2017-01-29 00:00:00 Completed [facility] Influenza High Dose 2017-01-29 00:00:00 Completed [facility] Influenza High Dose 2017-01-29 00:00:00 Completed [facility] Influenza High Dose 2017-01-29 00:00:00 Completed [facility] Influenza High Dose 2017-01-29 00:00:00 Completed [facility] Pneumococcal 13 Conjugate, PCV13 (Prevnar 13) 2016-03-07 00:00:00 Completed [facility] Pneumococcal 13 Conjugate, PCV13 (Prevnar 13) 2016-03-07 00:00:00 Completed [facility] Pneumococcal 13 Conjugate, PCV13 (Prevnar 13) 2016-03-07 00:00:00 Completed [facility] Pneumococcal 13 Conjugate, PCV13 (Prevnar 13) 2016-03-07 00:00:00 Completed [facility] Pneumococcal 13 Conjugate, PCV13 (Prevnar 13) 2016-03-07 00:00:00 Completed [facility] Pneumococcal 13 Conjugate, PCV13 (Prevnar 13) 2016-03-07 00:00:00 Completed [facility] Pneumococcal 13 Conjugate, PCV13 (Prevnar 13) 2016-03-07 00:00:00 Completed [facility] Pneumococcal 13 Conjugate, PCV13 (Prevnar 13) 2016-03-07 00:00:00 Completed [facility] Pneumococcal 13 Conjugate, PCV13 (Prevnar 13) 2016-03-07 00:00:00 Completed [facility] Pneumococcal 13 Conjugate, PCV13 (Prevnar 13) 2016-03-07 00:00:00 Completed [facility] Pneumococcal 13 Conjugate, PCV13 (Prevnar 13) 2016-03-07 00:00:00 Completed [facility] Pneumococcal 13 Conjugate, PCV13 (Prevnar 13) 2016-03-07 00:00:00 Completed [facility] Pneumococcal 13 Conjugate, PCV13 (Prevnar 13) 2016-03-07 00:00:00 Completed [facility] Pneumococcal 13 Conjugate, PCV13 (Prevnar 13) 2016-03-07 00:00:00 Completed [facility] Pneumococcal 13 Conjugate, PCV13 (Prevnar 13) 2016-03-07 00:00:00 Completed [facility] Pneumococcal 13 Conjugate, PCV13 (Prevnar 13) 2016-03-07 00:00:00 Completed [facility] Pneumococcal 13 Conjugate, PCV13 (Prevnar 13) 2016-03-07 00:00:00 Completed [facility] Pneumococcal 13 Conjugate, PCV13 (Prevnar 13) 2016-03-07 00:00:00 Completed [facility] Pneumococcal 13 Conjugate, PCV13 (Prevnar 13) 2016-03-07 00:00:00 Completed [facility] Pneumococcal 13 Conjugate, PCV13 (Prevnar 13) 2016-03-07 00:00:00 Completed [facility] Pneumococcal 13 Conjugate, PCV13 (Prevnar 13) 2016-03-07 00:00:00 Completed [facility] Pneumococcal 13 Conjugate, PCV13 (Prevnar 13) 2016-03-07 00:00:00 Completed [facility] Pneumococcal 13 Conjugate, PCV13 (Prevnar 13) 2016-03-07 00:00:00 Completed [facility] Pneumococcal 13 Conjugate, PCV13 (Prevnar 13) 2016-03-07 00:00:00 Completed [facility] Pneumococcal 13 Conjugate, PCV13 (Prevnar 13) 2016-03-07 00:00:00 Completed [facility] Pneumococcal 13 Conjugate, PCV13 (Prevnar 13) 2016-03-07 00:00:00 Completed [facility] Pneumococcal 13 Conjugate, PCV13 (Prevnar 13) 2016-03-07 00:00:00 Completed [facility] Pneumococcal 13 Conjugate, PCV13 (Prevnar 13) 2016-03-07 00:00:00 Completed [facility] Pneumococcal 13 Conjugate, PCV13 (Prevnar 13) 2016-03-07 00:00:00 Completed [facility] Pneumococcal 13 Conjugate, PCV13 (Prevnar 13) 2016-03-07 00:00:00 Completed [facility] Pneumococcal 13 Conjugate, PCV13 (Prevnar 13) 2016-03-07 00:00:00 Completed [facility] Pneumococcal 13 Conjugate, PCV13 (Prevnar 13) 2016-03-07 00:00:00 Completed [facility] Pneumococcal 13 Conjugate, PCV13 (Prevnar 13) 2016-03-07 00:00:00 Completed [facility] Influenza Virus Vaccine 2016-02-03 00:00:00 Completed [facility] Influenza Virus Vaccine 2016-02-03 00:00:00 Completed [facility] Influenza Virus Vaccine 2016-02-03 00:00:00 Completed [facility] Influenza Virus Vaccine 2016-02-03 00:00:00 Completed [facility] Influenza Virus Vaccine 2016-02-03 00:00:00 Completed [facility] Influenza Virus Vaccine 2016-02-03 00:00:00 Completed [facility] Influenza Virus Vaccine 2016-02-03 00:00:00 Completed [facility] Influenza Virus Vaccine 2016-02-03 00:00:00 Completed [facility] Influenza Virus Vaccine 2016-02-03 00:00:00 Completed [facility] Influenza Virus Vaccine 2016-02-03 00:00:00 Completed [facility] Influenza Virus Vaccine 2016-02-03 00:00:00 Completed [facility] Influenza Virus Vaccine 2016-02-03 00:00:00 Completed [facility] Influenza Virus Vaccine 2016-02-03 00:00:00 Completed [facility] Influenza Virus Vaccine 2016-02-03 00:00:00 Completed [facility] Influenza Virus Vaccine 2016-02-03 00:00:00 Completed [facility] Influenza Virus Vaccine 2016-02-03 00:00:00 Completed [facility] Influenza Virus Vaccine 2016-02-03 00:00:00 Completed [facility] Influenza Virus Vaccine 2016-02-03 00:00:00 Completed [facility] Influenza Virus Vaccine 2016-02-03 00:00:00 Completed [facility] Influenza Virus Vaccine 2016-02-03 00:00:00 Completed [facility] Influenza Virus Vaccine 2016-02-03 00:00:00 Completed Influenza Virus Vaccine 2016-02-03 00:00:00 Completed Influenza Virus Vaccine 2016-02-03 00:00:00 Completed [facility] Influenza Virus Vaccine 2016-02-03 00:00:00 Completed [facility] Influenza Virus Vaccine 2016-02-03 00:00:00 Completed [facility] Influenza Virus Vaccine 2016-02-03 00:00:00 Completed [facility] Influenza Virus Vaccine 2016-02-03 00:00:00 Completed [facility] Influenza Virus Vaccine 2016-02-03 00:00:00 Completed [facility] Influenza Virus Vaccine 2016-02-03 00:00:00 Completed [facility] Influenza Virus Vaccine 2016-02-03 00:00:00 Completed [facility] Influenza Virus Vaccine 2016-02-03 00:00:00 Completed [facility] Influenza Virus Vaccine 2016-02-03 00:00:00 Completed [facility] Influenza Virus Vaccine 2016-02-03 00:00:00 Completed [facility] TDAP 2010-03-01 00:00:00 Completed [facility] TDAP 2010-03-01 00:00:00 Completed [facility] TDAP 2010-03-01 00:00:00 Completed [facility] TDAP 2010-03-01 00:00:00 Completed [facility] TDAP 2010-03-01 00:00:00 Completed [facility] TDAP 2010-03-01 00:00:00 Completed [facility] TDAP 2010-03-01 00:00:00 Completed [facility] TDAP 2010-03-01 00:00:00 Completed [facility] TDAP 2010-03-01 00:00:00 Completed [facility] TDAP 2010-03-01 00:00:00 Completed [facility] TDAP 2010-03-01 00:00:00 Completed [facility] TDAP 2010-03-01 00:00:00 Completed [facility] TDAP 2010-03-01 00:00:00 Completed [facility] TDAP 2010-03-01 00:00:00 Completed [facility] TDAP 2010-03-01 00:00:00 Completed [facility] TDAP 2010-03-01 00:00:00 Completed [facility] TDAP 2010-03-01 00:00:00 Completed [facility] TDAP 2010-03-01 00:00:00 Completed [facility] TDAP 2010-03-01 00:00:00 Completed [facility] TDAP 2010-03-01 00:00:00 Completed [facility] TDAP 2010-03-01 00:00:00 Completed TDAP 2010-03-01 00:00:00 Completed TDAP 2010-03-01 00:00:00 Completed TDAP 2010-03-01 00:00:00 Completed [facility] TDAP 2010-03-01 00:00:00 Completed [facility] TDAP 2010-03-01 00:00:00 Completed [facility] TDAP 2010-03-01 00:00:00 Completed [facility] TDAP 2010-03-01 00:00:00 Completed [facility] TDAP 2010-03-01 00:00:00 Completed [facility] TDAP 2010-03-01 00:00:00 Completed [facility] TDAP 2010-03-01 00:00:00 Completed [facility] TDAP 2010-03-01 00:00:00 Completed [facility] TDAP 2010-03-01 00:00:00 Completed [facility] Pneumococcal Polysaccharide, PPSV23 (PNEUMOVAX) 2006-03-08 00:00:00 Completed [facility] Pneumococcal Polysaccharide, PPSV23 (PNEUMOVAX) 2006-03-08 00:00:00 Completed [facility] Pneumococcal Polysaccharide, PPSV23 (PNEUMOVAX) 2006-03-08 00:00:00 Completed [facility] Pneumococcal Polysaccharide, PPSV23 (PNEUMOVAX) 2006-03-08 00:00:00 Completed [facility] Pneumococcal Polysaccharide, PPSV23 (PNEUMOVAX) 2006-03-08 00:00:00 Completed [facility] Pneumococcal Polysaccharide, PPSV23 (PNEUMOVAX) 2006-03-08 00:00:00 Completed [facility] Pneumococcal Polysaccharide, PPSV23 (PNEUMOVAX) 2006-03-08 00:00:00 Completed [facility] Pneumococcal Polysaccharide, PPSV23 (PNEUMOVAX) 2006-03-08 00:00:00 Completed [facility] Pneumococcal Polysaccharide, PPSV23 (PNEUMOVAX) 2006-03-08 00:00:00 Completed [facility] Pneumococcal Polysaccharide, PPSV23 (PNEUMOVAX) 2006-03-08 00:00:00 Completed [facility] Pneumococcal Polysaccharide, PPSV23 (PNEUMOVAX) 2006-03-08 00:00:00 Completed [facility] Pneumococcal Polysaccharide, PPSV23 (PNEUMOVAX) 2006-03-08 00:00:00 Completed [facility] Pneumococcal Polysaccharide, PPSV23 (PNEUMOVAX) 2006-03-08 00:00:00 Completed [facility] Pneumococcal Polysaccharide, PPSV23 (PNEUMOVAX) 2006-03-08 00:00:00 Completed [facility] Pneumococcal Polysaccharide, PPSV23 (PNEUMOVAX) 2006-03-08 00:00:00 Completed [facility] Pneumococcal Polysaccharide, PPSV23 (PNEUMOVAX) 2006-03-08 00:00:00 Completed [facility] Pneumococcal Polysaccharide, PPSV23 (PNEUMOVAX) 2006-03-08 00:00:00 Completed [facility] Pneumococcal Polysaccharide, PPSV23 (PNEUMOVAX) 2006-03-08 00:00:00 Completed [facility] Pneumococcal Polysaccharide, PPSV23 (PNEUMOVAX) 2006-03-08 00:00:00 Completed [facility] Pneumococcal Polysaccharide, PPSV23 (PNEUMOVAX) 2006-03-08 00:00:00 Completed [facility] Pneumococcal Polysaccharide, PPSV23 (PNEUMOVAX) 2006-03-08 00:00:00 Completed Pneumococcal Polysaccharide, PPSV23 (PNEUMOVAX) 2006-03-08 00:00:00 Completed Pneumococcal Polysaccharide, PPSV23 (PNEUMOVAX) 2006-03-08 00:00:00 Completed Pneumococcal Polysaccharide, PPSV23 (PNEUMOVAX) 2006-03-08 00:00:00 Completed [facility] Pneumococcal Polysaccharide, PPSV23 (PNEUMOVAX) 2006-03-08 00:00:00 Completed [facility] Pneumococcal Polysaccharide, PPSV23 (PNEUMOVAX) 2006-03-08 00:00:00 Completed [facility] Pneumococcal Polysaccharide, PPSV23 (PNEUMOVAX) 2006-03-08 00:00:00 Completed [facility] Pneumococcal Polysaccharide, PPSV23 (PNEUMOVAX) 2006-03-08 00:00:00 Completed [facility] Pneumococcal Polysaccharide, PPSV23 (PNEUMOVAX) 2006-03-08 00:00:00 Completed [facility] Pneumococcal Polysaccharide, PPSV23 (PNEUMOVAX) 2006-03-08 00:00:00 Completed [facility] Pneumococcal Polysaccharide, PPSV23 (PNEUMOVAX) 2006-03-08 00:00:00 Completed [facility] Pneumococcal Polysaccharide, PPSV23 (PNEUMOVAX) 2006-03-08 00:00:00 Completed [facility] Pneumococcal Polysaccharide, PPSV23 (PNEUMOVAX) 2006-03-08 00:00:00 Completed [facility] Zoster(Zostavax)([facility]) 2002-03-01 00:00:00 Completed [facility] Zoster(Zostavax)([facility]) 2002-03-01 00:00:00 Completed [facility] Zoster(Zostavax)([facility]) 2002-03-01 00:00:00 Completed [facility] Zoster(Zostavax)([facility]) 2002-03-01 00:00:00 Completed [facility] Zoster(Zostavax)([facility]) 2002-03-01 00:00:00 Completed [facility] Zoster(Zostavax)([facility]) 2002-03-01 00:00:00 Completed [facility] Zoster(Zostavax)([facility]) 2002-03-01 00:00:00 Completed [facility] Zoster(Zostavax)([facility]) 2002-03-01 00:00:00 Completed [facility] Zoster(Zostavax)([facility]) 2002-03-01 00:00:00 Completed [facility] Zoster(Zostavax)([facility]) 2002-03-01 00:00:00 Completed [facility] Zoster(Zostavax)([facility]) 2002-03-01 00:00:00 Completed [facility] Zoster(Zostavax)([facility]) 2002-03-01 00:00:00 Completed [facility] Zoster(Zostavax)([facility]) 2002-03-01 00:00:00 Completed [facility] Zoster(Zostavax)([facility]) 2002-03-01 00:00:00 Completed [facility] Zoster(Zostavax)([facility]) 2002-03-01 00:00:00 Completed [facility] Zoster(Zostavax)([facility]) 2002-03-01 00:00:00 Completed [facility] Zoster(Zostavax)([facility]) 2002-03-01 00:00:00 Completed [facility] Zoster(Zostavax)([facility]) 2002-03-01 00:00:00 Completed [facility] Zoster(Zostavax)([facility]) 2002-03-01 00:00:00 Completed [facility] Zoster(Zostavax)([facility]) 2002-03-01 00:00:00 Completed [facility] Zoster(Zostavax)([facility]) 2002-03-01 00:00:00 Completed Zoster(Zostavax)([facility]) 2002-03-01 00:00:00 Completed Zoster(Zostavax)([facility]) 2002-03-01 00:00:00 Completed Zoster(Zostavax)([facility]) 2002-03-01 00:00:00 Completed [facility] Zoster(Zostavax)([facility]) 2002-03-01 00:00:00 Completed [facility] Zoster(Zostavax)([facility]) 2002-03-01 00:00:00 Completed [facility] Zoster(Zostavax)([facility]) 2002-03-01 00:00:00 Completed [facility] Zoster(Zostavax)([facility]) 2002-03-01 00:00:00 Completed [facility] Zoster(Zostavax)([facility]) 2002-03-01 00:00:00 Completed [facility] Zoster(Zostavax)([facility]) 2002-03-01 00:00:00 Completed [facility] Zoster(Zostavax)([facility]) 2002-03-01 00:00:00 Completed [facility] Zoster(Zostavax)([facility]) 2002-03-01 00:00:00 Completed [facility] Zoster(Zostavax)([facility]) 2002-03-01 00:00:00 Completed [facility] Influenza Virus Vaccine Unknown Completed [facility] Pneumococcal Polysaccharide, PPSV23 (PNEUMOVAX) Unknown Completed [facility] Pneumococcal 13 Conjugate, PCV13 (Prevnar 13) Unknown Completed [facility] Influenza High Dose Unknown Completed [facility] Zoster(Zostavax)([facility]) Unknown Completed [facility] TDAP Unknown Completed [facility] Zoster Vaccine Recombinant Unknown Completed [facility] Influenza High Dose Quad Unknown Completed [facility] SARS-COV-2 COVID-19 MODERNA 12+ YRS VACCINE Unknown Completed [facility] SARS-COV-2 COVID-19 MODERNA 0.25ML BOOSTER VACCINE Unknown Completed [place] [facility] Remdesivir Unknown [facility]pleted [facility] Remdesivir Unknown Com[facility] Influenza Virus Vaccine Unknown Completed [facility] Pneumococcal Polysaccharide, PPSV23 (PNEUMOVAX) Unknown Completed [facility] Pneumococcal 13 Conjugate, PCV13 (Prevnar 13) Unknown Completed [facility] Influenza High Dose Unknown Completed [facility] Zoster(Zostavax)(Sh ingles) Unknown Completed [facility] TDAP Unknown Completed [facility] Zoster Vaccine Recombinant Unknown Completed [facility] Influenza High Dose Quad Unknown Completed [facility] SARS-COV-2 COVID-19 MODERNA 12+ YRS VACCINE Unknown Completed [facility] SARS-COV-2 COVID-19 MODERNA 0.25ML BOOSTER VACCINE Unknown Completed [place] [facility] Completed [facility] Influenza High Dose Unknown Completed [facility] Zoster(Zostavax)( ingles) Unknown Completed [facility] TDAP Unknown Completed [facility] Zoster Vaccine Recombinant Unknown Completed [facility] Influenza High Dose Quad Unknown Completed [facility] SARS-COV-2 COVID-19 MODERNA 12+ YRS VACCINE Unknown Completed [facility] SARS-COV-2 COVID-19 MODERNA 0.25ML BOOSTER VACCINE Unknown Completed [place] [facility] Rem[facility]ivir Unknown [facility] Influenza Virus Vaccine Unknown Completed [facility] Pneumococcal Polysaccharide, PPSV23 (PNEUMOVAX) Unknown Completed [facility] Pneumococcal 13 Conjugate, PCV13 (Prevnar 13) Unknown Completed [facility] Influenza High Dose Unknown Completed [facility] Zoster(Zostavax)(Sh ingles) Unknown Completed [facility] TDAP Unknown Completed [facility] Zoster Vaccine Recombinant Unknown Completed [facility] Influenza High Dose Quad Unknown Completed [facility] SARS-COV-2 COVID-19 MODERNA 12+ YRS VACCINE Unknown Completed [facility] SARS-COV-2 COVID-19 MODERNA 0.25ML BOOSTER VACCINE Unknown Completed [facility] Remdesivir Unknown Completed [facility] Remdesivir Unknown Completed [facility] Influenza Virus Vaccine,quad Im,preserve Free 65+ (FLUAD) Unknown Completed [facility] Influenza Virus Vaccine,quad Im,preserve Free 65+ (FLUAD) Unknown Completed [facility] Influenza Virus Vaccine Unknown Completed [facility] Pneumococcal Polysaccharide, PPSV23 (PNEUMOVAX) Unknown Completed [facility] Pneumococcal 13 Conjugate, PCV13 (Prevnar 13) Unknown Completed [facility] Influenza High Dose Unknown Completed [facility] Zoster(Zostavax)( ingles) Unknown Completed [facility] TDAP Unknown Completed [facility] Zoster Vaccine Recombinant Unknown Completed [facility] Influenza High Dose Quad Unknown Completed [facility] SARS-COV-2 COVID-19 MODERNA 12+ YRS VACCINE Unknown Completed [facility] SARS-COV-2 COVID-19 MODERNA 0.25ML BOOSTER VACCINE Unknown Completed [facility] Remdesivir Unknown Completed [facility] Remdesivir Unknown Completed [facility] Influenza Virus Vaccine Unknown Completed [facility] Pneumococcal Polysaccharide, PPSV23 (PNEUMOVAX) Unknown Completed [facility] Pneumococcal 13 Conjugate, PCV13 (Prevnar 13) Unknown Completed [facility] Zoster(Zostavax)(Sh ingles) Unknown Completed [facility] SARS-COV-2 COVID-19 MODERNA 0.25ML BOOSTER VACCINE Unknown Completed [facility] Remdesivir Unknown Completed [facility] Influenza Virus Vaccine,quad Im,preserve Free 65+ (FLUAD) Unknown Completed [facility] Influenza Virus Vaccine Unknown Completed [facility] Pneumococcal Polysaccharide, PPSV23 (PNEUMOVAX) Unknown Completed [facility] Pneumococcal 13 Conjugate, PCV13 (Prevnar 13) Unknown Completed [facility] Influenza High Dose Unknown Completed [facility] Zoster(Zostavax)(Sh ingles) Unknown Completed [facility] TDAP Unknown Completed [facility] Zoster Vaccine Recombinant Unknown Completed [facility] Influenza High Dose Quad Unknown Completed [facility] SARS-COV-2 COVID-19 MODERNA 12+ YRS VACCINE Unknown Completed [facility] SARS-COV-2 COVID-19 MODERNA 0.25ML BOOSTER VACCINE Unknown Completed [facility] Remdesivir Unknown Completed [facility] Remdesivir Unknown Completed [facility] Influenza Virus Vaccine,quad Im,preserve Free 65+ (FLUAD) Unknown Completed [facility] Influenza Virus Vaccine Unknown Completed [facility] Pneumococcal Polysaccharide, PPSV23 (PNEUMOVAX) Unknown Completed [facility] Pneumococcal 13 Conjugate, PCV13 (Prevnar 13) Unknown Completed [facility] Influenza Virus Vaccine Unknown Completed [facility] Pneumococcal Polysaccharide, PPSV23 (PNEUMOVAX) Unknown Completed [facility] Pneumococcal 13 Conjugate, PCV13 (Prevnar 13) Unknown Completed [facility] Influenza High Dose Unknown Completed [facility] Zoster(Zostavax)( ingles) Unknown Completed [facility] TDAP Unknown Completed [facility] Zoster Vaccine Recombinant Unknown Completed [facility] Influenza High Dose Quad Unknown Completed [facility] SARS-COV-2 COVID-19 MODERNA 12+ YRS VACCINE Unknown Completed [facility] SARS-COV-2 COVID-19 MODERNA 0.25ML BOOSTER VACCINE Unknown Completed [facility] Remdesivir Unknown Completed [facility] Remdesivir Unknown Completed [facility] Influenza Virus Vaccine,quad Im,preserve Free 65+ (FLUAD) Unknown Completed [facility] Influenza High Dose Unknown Completed [facility] Zoster(Zostavax)( ingles) Unknown Completed [facility] TDAP Unknown Completed [facility] Zoster Vaccine Recombinant Unknown Completed [facility] Influenza High Dose Quad Unknown Completed [facility] SARS-COV-2 COVID-19 MODERNA 12+ YRS VACCINE Unknown Completed [facility] SARS-COV-2 COVID-19 MODERNA 0.25ML BOOSTER VACCINE Unknown Completed [facility] Remdesivir Unknown Completed [facility] Remdesivir Unknown Completed [facility] Influenza Virus Vaccine,quad Im,preserve Free 65+ (FLUAD) Unknown Completed [facility] Influenza Virus Vaccine Unknown Completed [facility] Pneumococcal Polysaccharide, PPSV23 (PNEUMOVAX) Unknown Completed [facility] Pneumococcal 13 Conjugate, PCV13 (Prevnar 13) Unknown Completed [facility] Influenza Virus Vaccine Unknown Completed [facility] Pneumococcal Polysaccharide, PPSV23 (PNEUMOVAX) Unknown Completed [facility] Pneumococcal 13 Conjugate, PCV13 (Prevnar 13) Unknown Completed [facility] Influenza High Dose Unknown Completed [facility] Zoster(Zostavax)(Sh ingles) Unknown Completed [facility] TDAP Unknown Completed [facility] Zoster Vaccine Recombinant Unknown Completed [facility] Influenza High Dose Quad Unknown Completed [facility] SARS-COV-2 COVID-19 MODERNA 12+ YRS VACCINE Unknown Completed [facility] SARS-COV-2 COVID-19 MODERNA 0.25ML BOOSTER VACCINE Unknown Completed [facility] Remdesivir Unknown Completed [facility] Remdesivir Unknown Completed [facility] Influenza Virus Vaccine,quad Im,preserve Free 65+ (FLUAD) Unknown Completed [facility] Influenza Virus Vaccine Unknown Completed [facility] Pneumococcal Polysaccharide, PPSV23 (PNEUMOVAX) Unknown Completed [facility] Pneumococcal 13 Conjugate, PCV13 (Prevnar 13) Unknown Completed [facility] Influenza High Dose Unknown Completed [facility] Zoster(Zostavax)(Sh ingles) Unknown Completed [facility] TDAP Unknown Completed [facility] Zoster Vaccine Recombinant Unknown Completed [facility] Influenza High Dose Quad Unknown Completed [facility] SARS-COV-2 COVID-19 MODERNA 12+ YRS VACCINE Unknown Completed [facility] SARS-COV-2 COVID-19 MODERNA 0.25ML BOOSTER VACCINE Unknown Completed [facility] Remdesivir Unknown Completed [facility] Remdesivir Unknown Completed [facility] Influenza Virus Vaccine,quad Im,preserve Free 65+ (FLUAD) Unknown Completed [facility] Influenza Virus Vaccine Unknown Completed [facility] Pneumococcal Polysaccharide, PPSV23 (PNEUMOVAX) Unknown Completed [facility] Pneumococcal 13 Conjugate, PCV13 (Prevnar 13) Unknown Completed [facility] Influenza High Dose Unknown Completed [facility] Zoster(Zostavax)(Sh ingles) Unknown Completed [facility] TDAP Unknown Completed [facility] Zoster Vaccine Recombinant Unknown Completed [facility] Influenza High Dose Quad Unknown Completed [facility] SARS-COV-2 COVID-19 MODERNA 12+ YRS VACCINE Unknown Completed [facility] SARS-COV-2 COVID-19 MODERNA 0.25ML BOOSTER VACCINE Unknown Completed [facility] Remdesivir Unknown Completed [facility] Remdesivir Unknown Completed [facility] Influenza Virus Vaccine,quad Im,preserve Free 65+ (FLUAD) Unknown Completed [facility] Influenza Virus Vaccine Unknown Completed [facility] Pneumococcal Polysaccharide, PPSV23 (PNEUMOVAX) Unknown Completed [facility] Pneumococcal 13 Conjugate, PCV13 (Prevnar 13) Unknown Completed [facility] Influenza High Dose Unknown Completed [facility] Zoster(Zostavax)( ingles) Unknown Completed [facility] TDAP Unknown Completed [facility] Zoster Vaccine Recombinant Unknown Completed [facility] Influenza High Dose Quad Unknown Completed [facility] SARS-COV-2 COVID-19 MODERNA 12+ YRS VACCINE Unknown Completed [facility] SARS-COV-2 COVID-19 MODERNA 0.25ML BOOSTER VACCINE Unknown Completed [facility] Remdesivir Unknown Completed [facility] Remdesivir Unknown Completed [facility] Influenza Virus Vaccine,quad Im,preserve Free 65+ (FLUAD) Unknown Completed [facility] Influenza Virus Vaccine Unknown Completed [facility] Pneumococcal Polysaccharide, PPSV23 (PNEUMOVAX) Unknown Completed [facility] Pneumococcal 13 Conjugate, PCV13 (Prevnar 13) Unknown Completed [facility] Influenza High Dose Unknown Completed [facility] Zoster(Zostavax)( ingles) Unknown Completed [facility] TDAP Unknown Completed [facility] Zoster Vaccine Recombinant Unknown Completed [facility] Influenza High Dose Quad Unknown Completed [facility] SARS-COV-2 COVID-19 MODERNA 12+ YRS VACCINE Unknown Completed [facility] SARS-COV-2 COVID-19 MODERNA 0.25ML BOOSTER VACCINE Unknown Completed [facility] Remdesivir Unknown Completed [facility] Remdesivir Unknown Completed [facility] Influenza Virus Vaccine,quad Im,preserve Free 65+ (FLUAD) Unknown Completed [facility] Influenza Virus Vaccine Unknown Completed [facility] Pneumococcal Polysaccharide, PPSV23 (PNEUMOVAX) Unknown Completed [facility] Pneumococcal 13 Conjugate, PCV13 (Prevnar 13) Unknown Completed [facility] Influenza High Dose Unknown Completed [facility] Zoster(Zostavax)(Sh ingles) Unknown Completed [facility] TDAP Unknown Completed [facility] Zoster Vaccine Recombinant Unknown Completed [facility] Influenza High Dose Quad Unknown Completed [facility] SARS-COV-2 COVID-19 MODERNA 12+ YRS VACCINE Unknown Completed [facility] SARS-COV-2 COVID-19 MODERNA 0.25ML BOOSTER VACCINE Unknown Completed [facility] Remdesivir Unknown Completed [facility] Remdesivir Unknown Completed [facility] Influenza Virus Vaccine,quad Im,preserve Free 65+ (FLUAD) Unknown Completed [facility] Influenza Virus Vaccine Unknown Completed [facility] Pneumococcal Polysaccharide, PPSV23 (PNEUMOVAX) Unknown Completed [facility] Pneumococcal 13 Conjugate, PCV13 (Prevnar 13) Unknown Completed [facility] Zoster(Zostavax)(Sh ingles) Unknown Completed [facility] SARS-COV-2 COVID-19 MODERNA 0.25ML BOOSTER VACCINE Unknown Completed [facility] Remdesivir Unknown Completed [facility] Influenza Virus Vaccine,quad Im,preserve Free 65+ (FLUAD) Unknown Completed [facility] Influenza Virus Vaccine Unknown Completed [facility] Pneumococcal Polysaccharide, PPSV23 (PNEUMOVAX) Unknown Completed [facility] Pneumococcal 13 Conjugate, PCV13 (Prevnar 13) Unknown Completed [facility] Zoster(Zostavax)(Sh ingles) Unknown Completed [facility] SARS-COV-2 COVID-19 MODERNA 0.25ML BOOSTER VACCINE Unknown Completed [facility] Remdesivir Unknown Completed [facility] Influenza Virus Vaccine,quad Im,preserve Free 65+ (FLUAD) Unknown Completed [facility] Influenza High Dose Unknown Completed [facility] TDAP Unknown Completed [facility] Zoster Vaccine Recombinant Unknown Completed [facility] Influenza High Dose Quad Unknown Completed [facility] SARS-COV-2 COVID-19 MODERNA 12+ YRS VACCINE Unknown Completed [facility] Remdesivir Unknown Completed [facility] Influenza Virus Vaccine Unknown Completed [facility] Pneumococcal Polysaccharide, PPSV23 (PNEUMOVAX) Unknown Completed [facility] Pneumococcal 13 Conjugate, PCV13 (Prevnar 13) Unknown Completed [facility] Influenza High Dose Unknown Completed [facility] Zoster(Zostavax)(Sh ingles) Unknown Completed [facility] TDAP Unknown Completed [facility] Zoster Vaccine Recombinant Unknown Completed [facility] Influenza High Dose Quad Unknown Completed [facility] SARS-COV-2 COVID-19 MODERNA 12+ YRS VACCINE Unknown Completed [facility] SARS-COV-2 COVID-19 MODERNA 0.25ML BOOSTER VACCINE Unknown Completed [facility] Remdesivir Unknown Completed [facility] Remdesivir Unknown Completed [facility] Influenza Virus Vaccine,quad Im,preserve Free 65+ (FLUAD) Unknown Completed [facility] Influenza High Dose Unknown Completed [facility] TDAP Unknown Completed [facility] Zoster Vaccine Recombinant Unknown Completed [facility] Influenza High Dose Quad Unknown Completed [facility] SARS-COV-2 COVID-19 MODERNA 12+ YRS VACCINE Unknown Completed [facility] Remdesivir Unknown Completed [facility] Influenza Virus Vaccine Unknown Completed [facility] Pneumococcal Polysaccharide, PPSV23 (PNEUMOVAX) Unknown Completed [facility] Pneumococcal 13 Conjugate, PCV13 (Prevnar 13) Unknown Completed [facility] Influenza High Dose Unknown Completed [facility] Zoster(Zostavax)(Sh ingles) Unknown Completed [facility] TDAP Unknown Completed [facility] Zoster Vaccine Recombinant Unknown Completed [facility] Influenza High Dose Quad Unknown Completed [facility] SARS-COV-2 COVID-19 MODERNA 12+ YRS VACCINE Unknown Completed [facility] SARS-COV-2 COVID-19 MODERNA 0.25ML BOOSTER VACCINE Unknown Completed [facility] Remdesivir Unknown Completed [facility] Remdesivir Unknown Completed [facility] Influenza Virus Vaccine,quad Im,preserve Free 65+ (FLUAD) Unknown Completed [facility] Influenza Virus Vaccine Unknown Completed [facility] Pneumococcal Polysaccharide, PPSV23 (PNEUMOVAX) Unknown Completed [facility] Pneumococcal 13 Conjugate, PCV13 (Prevnar 13) Unknown Completed [facility] Influenza High Dose Unknown Completed [facility] Zoster(Zostavax)(Sh ingles) Unknown Completed [facility] TDAP Unknown Completed [facility] Zoster Vaccine Recombinant Unknown Completed [facility] Influenza High Dose Quad Unknown Completed [facility] SARS-COV-2 COVID-19 MODERNA 12+ YRS VACCINE Unknown Completed [facility] SARS-COV-2 COVID-19 MODERNA 0.25ML BOOSTER VACCINE Unknown Completed [facility] Remdesivir Unknown Completed [facility] Remdesivir Unknown Completed [facility] Influenza Virus Vaccine,quad Im,preserve Free 65+ (FLUAD) Unknown Completed [facility] Influenza Virus Vaccine Unknown Completed [facility] Pneumococcal Polysaccharide, PPSV23 (PNEUMOVAX) Unknown Completed [facility] Pneumococcal 13 Conjugate, PCV13 (Prevnar 13) Unknown Completed [facility] Influenza High Dose Unknown Completed [facility] Zoster(Zostavax)(Sh ingles) Unknown Completed [facility] TDAP Unknown Completed [facility] Zoster Vaccine Recombinant Unknown Completed [facility] Influenza High Dose Quad Unknown Completed [facility] SARS-COV-2 COVID-19 MODERNA 12+ YRS VACCINE Unknown Completed [facility] SARS-COV-2 COVID-19 MODERNA 0.25ML BOOSTER VACCINE Unknown Completed [facility] Remdesivir Unknown Completed [facility] Remdesivir Unknown Completed [facility] Influenza Virus Vaccine,quad Im,preserve Free 65+ (FLUAD) Unknown Completed [facility] Influenza Virus Vaccine Unknown Completed [facility] Pneumococcal Polysaccharide, PPSV23 (PNEUMOVAX) Unknown Completed [facility] Pneumococcal 13 Conjugate, PCV13 (Prevnar 13) Unknown Completed [facility] Zoster(Zostavax)(Sh ingles) Unknown Completed [facility] SARS-COV-2 COVID-19 MODERNA 0.25ML BOOSTER VACCINE Unknown Completed [facility] Remdesivir Unknown Completed [facility] Influenza Virus Vaccine,quad Im,preserve Free 65+ (FLUAD) Unknown Completed [facility] Influenza High Dose Unknown Completed [facility] TDAP Unknown Completed [facility] Zoster Vaccine Recombinant Unknown Completed [facility] Influenza High Dose Quad Unknown Completed [facility] SARS-COV-2 COVID-19 MODERNA 12+ YRS VACCINE Unknown Completed [facility] Remdesivir Unknown Completed [facility] Influenza Virus Vaccine Unknown Completed [facility] Pneumococcal Polysaccharide, PPSV23 (PNEUMOVAX) Unknown Completed [facility] Pneumococcal 13 Conjugate, PCV13 (Prevnar 13) Unknown Completed [facility] Influenza High Dose Unknown Completed [facility] Zoster(Zostavax)( ingles) Unknown Completed [facility] TDAP Unknown Completed [facility] Zoster Vaccine Recombinant Unknown Completed [facility] Influenza High Dose Quad Unknown Completed [facility] SARS-COV-2 COVID-19 MODERNA 12+ YRS VACCINE Unknown Completed [facility] SARS-COV-2 COVID-19 MODERNA 0.25ML BOOSTER VACCINE Unknown Completed [facility] Remdesivir Unknown Completed [facility] Remdesivir Unknown Completed [facility] Influenza Virus Vaccine,quad Im,preserve Free 65+ (FLUAD) Unknown Completed [facility] Influenza Virus Vaccine Unknown Completed [facility] Pneumococcal Polysaccharide, PPSV23 (PNEUMOVAX) Unknown Completed [facility] Pneumococcal 13 Conjugate, PCV13 (Prevnar 13) Unknown Completed [facility] Influenza High Dose Unknown Completed [facility] Zoster(Zostavax)(Sh ingles) Unknown Completed [facility] TDAP Unknown Completed [facility] Zoster Vaccine Recombinant Unknown Completed [facility] Influenza High Dose Quad Unknown Completed [facility] SARS-COV-2 COVID-19 MODERNA 12+ YRS VACCINE Unknown Completed [facility] SARS-COV-2 COVID-19 MODERNA 0.25ML BOOSTER VACCINE Unknown Completed [facility] Remdesivir Unknown Completed [facility] Remdesivir Unknown Completed [facility] Influenza Virus Vaccine,quad Im,preserve Free 65+ (FLUAD) Unknown Completed [facility] Influenza Virus Vaccine Unknown Completed [facility] Pneumococcal Polysaccharide, PPSV23 (PNEUMOVAX) Unknown Completed [facility] Pneumococcal 13 Conjugate, PCV13 (Prevnar 13) Unknown Completed [facility] Influenza High Dose Unknown Completed [facility] Zoster(Zostavax)(Sh ingles) Unknown Completed [facility] TDAP Unknown Completed [facility] Zoster Vaccine Recombinant Unknown Completed [facility] Influenza High Dose Quad Unknown Completed [facility] SARS-COV-2 COVID-19 MODERNA 12+ YRS VACCINE Unknown Completed [facility] SARS-COV-2 COVID-19 MODERNA 0.25ML BOOSTER VACCINE Unknown Completed [facility] Remdesivir Unknown Completed [facility] Remdesivir Unknown Completed [facility] Influenza Virus Vaccine,quad Im,preserve Free 65+ (FLUAD) Unknown Completed [facility] Influenza Virus Vaccine Unknown Completed [facility] Pneumococcal Polysaccharide, PPSV23 (PNEUMOVAX) Unknown Completed [facility] Pneumococcal 13 Conjugate, PCV13 (Prevnar 13) Unknown Completed [facility] Influenza High Dose Unknown Completed [facility] Zoster(Zostavax)(Sh ingles) Unknown Completed [facility] TDAP Unknown Completed [facility] Zoster Vaccine Recombinant Unknown Completed [facility] Influenza High Dose Quad Unknown Completed [facility] SARS-COV-2 COVID-19 MODERNA 12+ YRS VACCINE Unknown Completed [facility] SARS-COV-2 COVID-19 MODERNA 0.25ML BOOSTER VACCINE Unknown Completed [facility] Remdesivir Unknown Completed [facility] Remdesivir Unknown Completed [facility] Influenza Virus Vaccine,quad Im,preserve Free 65+ (FLUAD) Unknown Completed [facility] Influenza Virus Vaccine Unknown Completed [facility] Pneumococcal Polysaccharide, PPSV23 (PNEUMOVAX) Unknown Completed [facility] Pneumococcal 13 Conjugate, PCV13 (Prevnar 13) Unknown Completed [facility] Zoster(Zostavax)( ingles) Unknown Completed [facility] SARS-COV-2 COVID-19 MODERNA 0.25ML BOOSTER VACCINE Unknown Completed [facility] Remdesivir Unknown Completed [facility] Influenza Virus Vaccine,quad Im,preserve Free 65+ (FLUAD) Unknown Completed [facility] Influenza High Dose Unknown Completed [facility] TDAP Unknown Completed [facility] Zoster Vaccine Recombinant Unknown Completed [facility] Influenza High Dose Quad Unknown Completed [facility] SARS-COV-2 COVID-19 MODERNA 12+ YRS VACCINE Unknown Completed [facility] Remdesivir Unknown Completed [facility] Influenza Virus Vaccine Unknown Completed [facility] Pneumococcal Polysaccharide, PPSV23 (PNEUMOVAX) Unknown Completed [facility] Pneumococcal 13 Conjugate, PCV13 (Prevnar 13) Unknown Completed [facility] Influenza High Dose Unknown Completed [facility] Zoster(Zostavax)( ingles) Unknown Completed [facility] TDAP Unknown Completed [facility] Zoster Vaccine Recombinant Unknown Completed [facility] Influenza High Dose Quad Unknown Completed [facility] SARS-COV-2 COVID-19 MODERNA 12+ YRS VACCINE Unknown Completed [facility] SARS-COV-2 COVID-19 MODERNA 0.25ML BOOSTER VACCINE Unknown Completed [facility] Remdesivir Unknown Completed [facility] Remdesivir Unknown Completed [facility] Influenza Virus Vaccine,quad Im,preserve Free 65+ (FLUAD) Unknown Completed [facility] Influenza Virus Vaccine Unknown Completed [facility] Pneumococcal Polysaccharide, PPSV23 (PNEUMOVAX) Unknown Completed [facility] Pneumococcal 13 Conjugate, PCV13 (Prevnar 13) Unknown Completed [facility] Zoster(Zostavax)( ingles) Unknown Completed [facility] SARS-COV-2 COVID-19 MODERNA 0.25ML BOOSTER VACCINE Unknown Completed [facility] Remdesivir Unknown Completed [facility] Influenza Virus Vaccine,quad Im,preserve Free 65+ (FLUAD) Unknown Completed [facility] Influenza High Dose Unknown Completed [facility] TDAP Unknown Completed [facility] Zoster Vaccine Recombinant Unknown Completed [facility] Influenza High Dose Quad Unknown Completed [facility] SARS-COV-2 COVID-19 MODERNA 12+ YRS VACCINE Unknown Completed [facility] Remdesivir Unknown Completed [facility] Influenza Virus Vaccine Unknown Completed [facility] Pneumococcal Polysaccharide, PPSV23 (PNEUMOVAX) Unknown Completed [facility] Pneumococcal 13 Conjugate, PCV13 (Prevnar 13) Unknown Completed [facility] Zoster(Zostavax)(Sh ingles) Unknown Completed [facility] SARS-COV-2 COVID-19 MODERNA 0.25ML BOOSTER VACCINE Unknown Completed [facility] Remdesivir Unknown Completed [facility] Influenza Virus Vaccine,quad Im,preserve Free 65+ (FLUAD) Unknown Completed [facility] Influenza High Dose Unknown Completed [facility] TDAP Unknown Completed [facility] Zoster Vaccine Recombinant Unknown Completed [facility] Influenza High Dose Quad Unknown Completed [facility] SARS-COV-2 COVID-19 MODERNA 12+ YRS VACCINE Unknown Completed [facility] Remdesivir Unknown Completed [facility] Influenza Virus Vaccine Unknown Completed [facility] Pneumococcal Polysaccharide, PPSV23 (PNEUMOVAX) Unknown Completed [facility] Pneumococcal 13 Conjugate, PCV13 (Prevnar 13) Unknown Completed [facility] Zoster(Zostavax)(Sh ingles) Unknown Completed [facility] SARS-COV-2 COVID-19 MODERNA 0.25ML BOOSTER VACCINE Unknown Completed [facility] Remdesivir Unknown Completed [facility] Influenza Virus Vaccine,quad Im,preserve Free 65+ (FLUAD) Unknown Completed [facility] Influenza High Dose Unknown Completed [facility] TDAP Unknown Completed [facility] Zoster Vaccine Recombinant Unknown Completed [facility] Influenza High Dose Quad Unknown Completed [facility] SARS-COV-2 COVID-19 MODERNA 12+ YRS VACCINE Unknown Completed [facility] Remdesivir [facility] Influ[facility] Virus Vaccine Unknown Completed [facility] Pneumococcal Polysaccharide, PPSV23 (PNEUMOVAX) Unknown Completed [facility] Pneumococcal 13 Conjugate, PCV13 (Prevnar 13) Unknown Completed [facility] Influenza High Dose Unknown Completed [facility] Zoster(Zostavax)(Sh ingles) Unknown Completed [facility] TDAP Unknown Completed [facility] Zoster Vaccine Recombinant Unknown Completed [facility] Influenza High Dose Quad Unknown Completed [facility] SARS-COV-2 COVID-19 MODERNA 12+ YRS VACCINE Unknown Completed [facility] SARS-COV-2 COVID-19 MODERNA 0.25ML BOOSTER VACCINE Unknown Completed [facility] Remdesivir Unknown Completed [facility] Remdesivir Unknown Completed [facility] Influenza Virus Vaccine,quad Im,preserve Free 65+ (FLUAD) Unknown Completed [facility] Influenza Virus Vaccine Unknown Completed [facility] Pneumococcal Polysaccharide, PPSV23 (PNEUMOVAX) Unknown Completed [facility] Pneumococcal 13 Conjugate, PCV13 (Prevnar 13) Unknown Completed [facility] Influenza High Dose Unknown Completed [facility] Zoster(Zostavax)( ingles) Unknown Completed [facility] TDAP Unknown Completed [facility] Zoster Vaccine Recombinant Unknown Completed [facility] Influenza High Dose Quad Unknown Completed [facility] SARS-COV-2 COVID-19 MODERNA 12+ YRS VACCINE Unknown Completed [facility] SARS-COV-2 COVID-19 MODERNA 0.25ML BOOSTER VACCINE Unknown Completed [facility] Remdesivir Unknown Completed [facility] Remdesivir Unknown Completed [facility] Influenza Virus Vaccine,quad Im,preserve Free 65+ (FLUAD) Unknown Completed [facility] Influenza Virus Vaccine Unknown Completed [facility] Pneumococcal Polysaccharide, PPSV23 (PNEUMOVAX) Unknown Completed [facility] Pneumococcal 13 Conjugate, PCV13 (Prevnar 13) Unknown Completed [facility] Influenza High Dose Unknown Completed [facility] Zoster(Zostavax)( ingles) Unknown Completed [facility] TDAP Unknown Completed [facility] Zoster Vaccine Recombinant Unknown Completed [facility] Influenza High Dose Quad Unknown Completed [facility] SARS-COV-2 COVID-19 MODERNA 12+ YRS VACCINE Unknown Completed [facility] SARS-COV-2 COVID-19 MODERNA 0.25ML BOOSTER VACCINE Unknown Completed [facility] Remdesivir Unknown Completed [facility] Remdesivir Unknown Completed [facility] Influenza Virus Vaccine,quad Im,preserve Free 65+ (FLUAD) Unknown Completed [facility] Influenza Virus Vaccine Unknown Completed [facility] Pneumococcal Polysaccharide, PPSV23 (PNEUMOVAX) Unknown Completed [facility] Pneumococcal 13 Conjugate, PCV13 (Prevnar 13) Unknown Completed [facility] Influenza High Dose Unknown Completed [facility] Zoster(Zostavax)(Sh ingles) Unknown Completed [facility] TDAP Unknown Completed [facility] Zoster Vaccine Recombinant Unknown Completed [facility] Influenza High Dose Quad Unknown Completed [facility] SARS-COV-2 COVID-19 MODERNA 12+ YRS VACCINE Unknown Completed [facility] SARS-COV-2 COVID-19 MODERNA 0.25ML BOOSTER VACCINE Unknown Completed [facility] Remdesivir Unknown Completed [facility] Remdesivir Unknown Completed [facility] Influenza Virus Vaccine,quad Im,preserve Free 65+ (FLUAD) Unknown Completed [facility] Influenza Virus Vaccine Unknown Completed [facility] Pneumococcal Polysaccharide, PPSV23 (PNEUMOVAX) Unknown Completed [facility] Pneumococcal 13 Conjugate, PCV13 (Prevnar 13) Unknown Completed [facility] Influenza High Dose Unknown Completed [facility] Zoster(Zostavax)(Sh ingles) Unknown Completed [facility] TDAP Unknown Completed [facility] Zoster Vaccine Recombinant Unknown Completed [facility] Influenza High Dose Quad Unknown Completed [facility] SARS-COV-2 COVID-19 MODERNA 12+ YRS VACCINE Unknown Completed [facility] SARS-COV-2 COVID-19 MODERNA 0.25ML BOOSTER VACCINE Unknown Completed [facility] Remdesivir Unknown Completed [facility] Remdesivir Unknown Completed [facility] Influenza Virus Vaccine,quad Im,preserve Free 65+ (FLUAD) Unknown Completed [facility] Influenza Virus Vaccine Unknown Completed [facility] Pneumococcal Polysaccharide, PPSV23 (PNEUMOVAX) Unknown Completed [facility] Pneumococcal 13 Conjugate, PCV13 (Prevnar 13) Unknown Completed [facility] Influenza High Dose Unknown Completed [facility] Zoster(Zostavax)(Sh ingles) Unknown Completed [facility] TDAP Unknown Completed [facility] Zoster Vaccine Recombinant Unknown Completed [facility] Influenza High Dose Quad Unknown Completed [facility] SARS-COV-2 COVID-19 MODERNA 12+ YRS VACCINE Unknown Completed [facility] SARS-COV-2 COVID-19 MODERNA 0.25ML BOOSTER VACCINE Unknown Completed [facility] Remdesivir Unknown Completed [facility] Remdesivir Unknown Completed [facility] Influenza Virus Vaccine,quad Im,preserve Free 65+ (FLUAD) Unknown Completed [facility] Influenza Virus Vaccine Unknown Completed [facility] Pneumococcal Polysaccharide, PPSV23 (PNEUMOVAX) Unknown Completed [facility] Pneumococcal 13 Conjugate, PCV13 (Prevnar 13) Unknown Completed [facility] Influenza High Dose Unknown Completed [facility] Zoster(Zostavax)( ingles) Unknown Completed [facility] TDAP Unknown Completed [facility] Zoster Vaccine Recombinant Unknown Completed [facility] Influenza High Dose Quad Unknown Completed [facility] SARS-COV-2 COVID-19 MODERNA 12+ YRS VACCINE Unknown Completed [facility] SARS-COV-2 COVID-19 MODERNA 0.25ML BOOSTER VACCINE Unknown Completed [facility] Remdesivir Unknown Completed [facility] Remdesivir Unknown Completed [facility] Influenza Virus Vaccine,quad Im,preserve Free 65+ (FLUAD) Unknown Completed [facility] Influenza Virus Vaccine Unknown Completed [facility] Pneumococcal Polysaccharide, PPSV23 (PNEUMOVAX) Unknown Completed [facility] Pneumococcal 13 Conjugate, PCV13 (Prevnar 13) Unknown Completed [facility] Influenza High Dose Unknown Completed [facility] Zoster(Zostavax)( ingles) Unknown Completed [facility] TDAP Unknown Completed [facility] Zoster Vaccine Recombinant Unknown Completed [facility] Influenza High Dose Quad Unknown Completed [facility] SARS-COV-2 COVID-19 MODERNA 12+ YRS VACCINE Unknown Completed [facility] SARS-COV-2 COVID-19 MODERNA 0.25ML BOOSTER VACCINE Unknown Completed [facility] Remdesivir Unknown Completed [facility] Remdesivir Unknown Completed [facility] Influenza Virus Vaccine,quad Im,preserve Free 65+ (FLUAD) Unknown Completed [facility] Influenza Virus Vaccine Unknown Completed [facility] Pneumococcal Polysaccharide, PPSV23 (PNEUMOVAX) Unknown Completed [facility] Pneumococcal 13 Conjugate, PCV13 (Prevnar 13) Unknown Completed [facility] Influenza High Dose Unknown Completed [facility] Zoster(Zostavax)(Sh ingles) Unknown Completed [facility] TDAP Unknown Completed [facility] Zoster Vaccine Recombinant Unknown Completed [facility] Influenza High Dose Quad Unknown Completed [facility] SARS-COV-2 COVID-19 MODERNA 12+ YRS VACCINE Unknown Completed [facility] SARS-COV-2 COVID-19 MODERNA 0.25ML BOOSTER VACCINE Unknown Completed [facility] Remdesivir Unknown Completed [facility] Remdesivir Unknown Completed [facility] Influenza Virus Vaccine,quad Im,preserve Free 65+ (FLUAD) Unknown Completed [facility] Influenza Virus Vaccine Unknown Completed [facility] Pneumococcal Polysaccharide, PPSV23 (PNEUMOVAX) Unknown Completed [facility] Pneumococcal 13 Conjugate, PCV13 (Prevnar 13) Unknown Completed [facility] Influenza High Dose Unknown Completed [facility] Zoster(Zostavax)(Sh ingles) Unknown Completed [facility] TDAP Unknown Completed [facility] Zoster Vaccine Recombinant Unknown Completed [facility] Influenza High Dose Quad Unknown Completed [facility] SARS-COV-2 COVID-19 MODERNA 12+ YRS VACCINE Unknown Completed [facility] SARS-COV-2 COVID-19 MODERNA 0.25ML BOOSTER VACCINE Unknown Completed [facility] Remdesivir Unknown Completed [facility] Remdesivir Unknown Completed [facility] Influenza Virus Vaccine,quad Im,preserve Free 65+ (FLUAD) Unknown Completed [facility] Influenza Virus Vaccine Unknown Completed [facility] Pneumococcal Polysaccharide, PPSV23 (PNEUMOVAX) Unknown Completed [facility] Pneumococcal 13 Conjugate, PCV13 (Prevnar 13) Unknown Completed [facility] Influenza High Dose Unknown Completed [facility] Zoster(Zostavax)(Sh ingles) Unknown Completed [facility] TDAP Unknown Completed [facility] Zoster Vaccine Recombinant Unknown Completed [facility] Influenza High Dose Quad Unknown Completed [facility] SARS-COV-2 COVID-19 MODERNA 12+ YRS VACCINE Unknown Completed [facility] SARS-COV-2 COVID-19 MODERNA 0.25ML BOOSTER VACCINE Unknown Completed [facility] Remdesivir Unknown Completed [facility] Remdesivir Unknown Completed [facility] Influenza Virus Vaccine,quad Im,preserve Free 65+ (FLUAD) Unknown Completed [facility] Influenza Virus Vaccine Unknown Completed [facility] Pneumococcal Polysaccharide, PPSV23 (PNEUMOVAX) Unknown Completed [facility] Pneumococcal 13 Conjugate, PCV13 (Prevnar 13) Unknown Completed [facility] Influenza High Dose Unknown Completed [facility] Zoster(Zostavax)( ingles) Unknown Completed [facility] TDAP Unknown Completed [facility] Zoster Vaccine Recombinant Unknown Completed [facility] Influenza High Dose Quad Unknown Completed [facility] SARS-COV-2 COVID-19 MODERNA 12+ YRS VACCINE Unknown Completed [facility] SARS-COV-2 COVID-19 MODERNA 0.25ML BOOSTER VACCINE Unknown Completed [facility] Remdesivir Unknown Completed [facility] Remdesivir Unknown Completed [facility] Influenza Virus Vaccine,quad Im,preserve Free 65+ (FLUAD) Unknown Completed [facility] Influenza Virus Vaccine Unknown Completed [facility] Pneumococcal Polysaccharide, PPSV23 (PNEUMOVAX) Unknown Completed [facility] Pneumococcal 13 Conjugate, PCV13 (Prevnar 13) Unknown Completed [facility] Influenza High Dose Unknown Completed [facility] Zoster(Zostavax)( ingles) Unknown Completed [facility] TDAP Unknown Completed [facility] Zoster Vaccine Recombinant Unknown Completed [facility] Influenza High Dose Quad Unknown Completed [facility] SARS-COV-2 COVID-19 MODERNA 12+ YRS VACCINE Unknown Completed [facility] SARS-COV-2 COVID-19 MODERNA 0.25ML BOOSTER VACCINE Unknown Completed [facility] Remdesivir Unknown Completed [facility] Remdesivir Unknown Completed [facility] Influenza Virus Vaccine,quad Im,preserve Free 65+ (FLUAD) Unknown Completed [facility] Influenza Virus Vaccine Unknown Completed [facility] Pneumococcal Polysaccharide, PPSV23 (PNEUMOVAX) Unknown Completed [facility] Pneumococcal 13 Conjugate, PCV13 (Prevnar 13) Unknown Completed [facility] Influenza High Dose Unknown Completed [facility] Zoster(Zostavax)(Sh ingles) Unknown Completed [facility] TDAP Unknown Completed [facility] Zoster Vaccine Recombinant Unknown Completed [facility] Influenza High Dose Quad Unknown Completed [facility] SARS-COV-2 COVID-19 MODERNA 12+ YRS VACCINE Unknown Completed [facility] SARS-COV-2 COVID-19 MODERNA 0.25ML BOOSTER VACCINE Unknown Completed [facility] Remdesivir Unknown Completed [facility] Remdesivir Unknown Completed [facility] Influenza Virus Vaccine,quad Im,preserve Free 65+ (FLUAD) Unknown Completed [facility] Influenza Virus Vaccine Unknown Completed [facility] Pneumococcal Polysaccharide, PPSV23 (PNEUMOVAX) Unknown Completed [facility] Pneumococcal 13 Conjugate, PCV13 (Prevnar 13) Unknown Completed [facility] Influenza, High-Dose, Trivalent, PF (FLUZONE) Unknown Completed [facility] Zoster(Zostavax)(Sh ingles) Unknown Completed [facility] TDAP Unknown Completed [facility] Zoster Vaccine Recombinant Unknown Completed [facility] Influenza High Dose Quad Unknown Completed [facility] SARS-COV-2 COVID-19 MODERNA 12+ YRS VACCINE Unknown Completed [facility] SARS-COV-2 COVID-19 MODERNA 0.25ML BOOSTER VACCINE Unknown Completed [facility] Remdesivir Unknown Completed [facility] Remdesivir Unknown Completed [facility] Influenza Virus Vaccine,quad Im,preserve Free 65+ (FLUAD) Unknown Completed [facility] Influenza Virus Vaccine Unknown Completed [facility] Pneumococcal Polysaccharide, PPSV23 (PNEUMOVAX) Unknown Completed [facility] Pneumococcal 13 Conjugate, PCV13 (Prevnar 13) Unknown Completed [facility] Influenza, High-Dose, Trivalent, PF (FLUZONE) Unknown Completed [facility] Zoster(Zostavax)( ingles) Unknown Completed [facility] TDAP Unknown Completed [facility] Zoster Vaccine Recombinant Unknown Completed [facility] Influenza High Dose Quad Unknown Completed [facility] SARS-COV-2 COVID-19 MODERNA 12+ YRS VACCINE Unknown Completed [facility] SARS-COV-2 COVID-19 MODERNA 0.25ML BOOSTER VACCINE Unknown Completed [facility] Remdesivir Unknown Completed [facility] Remdesivir Unknown Completed [facility] Influenza Virus Vaccine,quad Im,preserve Free 65+ (FLUAD) Unknown Completed [facility] Influenza Virus Vaccine Unknown Completed [facility] Pneumococcal Polysaccharide, PPSV23 (PNEUMOVAX) Unknown Completed [facility] Pneumococcal 13 Conjugate, PCV13 (Prevnar 13) Unknown Completed [facility] Influenza, High-Dose, Trivalent, PF (FLUZONE) Unknown Completed [facility] Zoster(Zostavax)( ingles) Unknown Completed [facility] TDAP Unknown Completed [facility] Zoster Vaccine Recombinant Unknown Completed [facility] Influenza High Dose Quad Unknown Completed [facility] SARS-COV-2 COVID-19 MODERNA 12+ YRS VACCINE Unknown Completed [facility] SARS-COV-2 COVID-19 MODERNA 0.25ML BOOSTER VACCINE Unknown Completed [facility] Remdesivir Unknown Completed [facility] Remdesivir Unknown Completed [facility] Influenza Virus Vaccine,quad Im,preserve Free 65+ (FLUAD) Unknown Completed [facility] Influenza Virus Vaccine Unknown Completed [facility] Pneumococcal Polysaccharide, PPSV23 (PNEUMOVAX) Unknown Completed [facility] Pneumococcal 13 Conjugate, PCV13 (Prevnar 13) Unknown Completed [facility] Influenza, High-Dose, Trivalent, PF (FLUZONE) Unknown Completed [facility] Zoster(Zostavax)(Minor haas) Unknown Completed [facility] TDAP Unknown Completed [facility] Zoster Vaccine Recombinant Unknown Completed [facility] Influenza High Dose Quad Unknown Completed [facility] SARS-COV-2 COVID-19 MODERNA 12+ YRS VACCINE Unknown Completed [facility] SARS-COV-2 COVID-19 MODERNA 0.25ML BOOSTER VACCINE Unknown Completed [facility] Remdesivir Unknown Completed [facility] Remdesivir Unknown Completed [facility] Influenza Virus Vaccine,quad Im,preserve Free 65+ (FLUAD) Unknown Completed [facility] Influenza Virus Vaccine Unknown Completed [facility] Pneumococcal Polysaccharide, PPSV23 (PNEUMOVAX) Unknown Completed [facility] Pneumococcal 13 Conjugate, PCV13 (Prevnar 13) Unknown Completed [facility] Influenza, High-Dose, Trivalent, PF (FLUZONE) Unknown Completed [facility] Zoster(Zostavax)(Minor haas) Unknown Completed [facility] TDAP Unknown Completed [facility] Zoster Vaccine Recombinant Unknown Completed [facility] Influenza High Dose Quad Unknown Completed [facility] SARS-COV-2 COVID-19 MODERNA 12+ YRS VACCINE Unknown Completed [facility] SARS-COV-2 COVID-19 MODERNA 0.25ML BOOSTER VACCINE Unknown Completed [facility] Remdesivir Unknown Completed [facility] Remdesivir Unknown Completed [facility] Influenza Virus Vaccine,quad Im,preserve Free 65+ (FLUAD) Unknown Completed [facility] Vital Signs Vital Name Observation Time Observation Value Comments S ource Systolic blood pressure 2024-05-30 15:10:00 118 mm[Hg] [facility] Diastolic blood pressure 2024-05-30 15:10:00 61 mm[Hg] [facility] Body temperature 2024-05-30 15:10:00 36.17 [facility] Respiratory rate 2024-05-30 15:10:00 18 /min [facility] Body height 2024-05-30 15:10:00 149.9 cm [facility] Body weight 2024-05-30 15:10:00 46.267 kg [facility] BMI 2024-05-30 15:10:00 20.60 kg/m2 [facility] Oxygen saturation in Arterial blood by Pulse oximetry 2024-05-30 15:10:00 97 /min [facility] Systolic blood pressure 2024-05-23 15:08:00 125 mm[Hg] [facility] Diastolic blood pressure 2024-05-23 15:08:00 79 mm[Hg] [facility] Heart rate 2024-05-23 15:08:00 78 /min [facility] Body height 2024-05-23 15:08:00 149.9 cm [facility] Body weight 2024-05-23 15:08:00 46.675 kg [facility] BMI 2024-05-23 15:08:00 20.78 kg/m2 [facility] O[facility] saturation in Arterial blood by Pulse oximetry 2024-05-23 15:08:00 97 /min [facility] Systolic blood pressure 2024-05-10 16:40:00 103 mm[Hg] [facility] Diastolic blood pressure 2024-05-10 16:40:00 66 mm[Hg] [facility] Heart rate 2024-05-10 16:40:00 84 /min [facility] Body temperature 2024-05-10 16:40:00 36.78 [facility] Body height 2024-05-10 16:40:00 149.9 cm [facility] Body weight 2024-05-10 16:40:00 46.63 kg [facility] BMI 2024-05-10 16:40:00 20.76 kg/m2 [facility] Oxygen saturation in Arterial blood by Pulse oximetry 2024-05-10 16:40:00 95 /min [facility] Systolic blood pressure 2024-02-19 22:29:00 121 mm[Hg] [facility] Diastolic blood pressure 2024-02-19 22:29:00 72 mm[Hg] [facility] Heart rate 2024-02-19 22:29:00 98 /min [facility] Body height 2024-02-19 22:29:00 149.9 cm [facility] Body weight 2024-02-19 22:29:00 45.36 kg [facility] BMI 2024-02-19 22:29:00 20.20 kg/m2 [facility] Systolic blood pressure 2024-01-08 19:10:00 120 mm[Hg] [facility] Diastolic blood pressure 2024-01-08 19:10:00 75 mm[Hg] [facility] Heart rate 2024-01-08 19:10:00 68 /min [facility] Respiratory rate 2024-01-08 19:10:00 15 /min [facility] Oxygen saturation in Arterial blood by Pulse oximetry 2024-01-08 19:10:00 97 /min [facility] Body temperature 2024-01-08 16:11:00 36.33 [facility] Body height 2024-01-08 12:43:00 147.3 cm [facility] Body weight 2024-01-08 12:43:00 43.092 kg [facility] BMI 2024-01-08 12:43:00 19.86 kg/m2 [facility] Systolic blood pressure 2024-01-08 17:15:00 112 mm[Hg] [facility] Diastolic blood pressure 2024-01-08 17:15:00 64 mm[Hg] [facility] Heart rate 2024-01-08 17:15:00 76 /min [facility] Respiratory rate 2024-01-08 17:15:00 13 /min [facility] Oxygen saturation in Arterial blood by Pulse oximetry 2024-01-08 17:15:00 97 /min [facility] Body temperature 2024-01-08 16:11:00 36.33 [facility] Body height 2024-01-08 12:43:00 147.3 cm [facility] Body weight 2024-01-08 12:43:00 43.092 kg [facility] BMI 2024-01-08 12:43:00 19.86 kg/m2 [facility] Body height 2023-12-19 13:33:00 147.3 cm [facility] Body weight 2023-12-19 13:33:00 44.725 kg [facility] BMI 2023-12-19 13:33:00 20.61 kg/m2 [facility] Systolic blood pressure 2023-12-15 15:50:00 109 mm[Hg] [facility] Diastolic blood pressure 2023-12-15 15:50:00 72 mm[Hg] [facility] Heart rate 2023-12-15 15:50:00 85 /min [facility] Body height 2023-12-15 15:50:00 147.3 cm [facility] Body weight 2023-12-15 15:50:00 45.088 kg [facility] BMI 2023-12-15 15:50:00 20.77 kg/m2 [facility] Oxygen saturation in Arterial blood by Pulse oximetry 2023-12-15 15:50:00 95 /min [facility] Body height 2023-11-07 14:08:00 147.3 cm [facility] Body weight 2023-11-07 14:08:00 46.72 kg [facility] BMI 2023-11-07 14:08:00 21.53 kg/m2 [facility] Systolic blood pressure 2023-10-26 19:59:00 113 mm[Hg] [facility] Diastolic blood pressure 2023-10-26 19:59:00 73 mm[Hg] [facility] Heart rate 2023-10-26 19:59:00 78 /min [facility] Respiratory rate 2023-10-26 19:59:00 18 /min [facility] Body height 2023-10-26 19:59:00 149.9 cm [facility] Body weight 2023-10-26 19:59:00 44.997 kg [facility] BMI 2023-10-26 19:59:00 20.04 kg/m2 [facility] Oxygen saturation in Arterial blood by Pulse oximetry 2023-10-26 19:59:00 96 /min [facility] Systolic blood pressure 2023-10-24 19:42:00 120 mm[Hg] [facility] Diastolic blood pressure 2023-10-24 19:42:00 75 mm[Hg] [facility] Heart rate 2023-10-24 19:42:00 91 /min [facility] Respiratory rate 2023-10-24 19:42:00 19 /min [facility] Body weight 2023-10-24 19:42:00 44.226 kg [facility] BMI 2023-10-24 19:42:00 20.38 kg/m2 [facility] Oxygen saturation in Arterial blood by Pulse oximetry 2023-10-24 19:42:00 96 /min [facility] Systolic blood pressure 2023-10-05 14:14:00 112 mm[Hg] [facility] Diastolic blood pressure 2023-10-05 14:14:00 72 mm[Hg] [facility] Heart rate 2023-10-05 14:14:00 91 /min [facility] Body height 2023-10-05 14:14:00 147.3 cm [facility] Body weight 2023-10-05 14:14:00 43.954 kg [facility] BMI 2023-10-05 14:14:00 20.25 kg/m2 [facility] Oxygen saturation in Arterial blood by Pulse oximetry 2023-10-05 14:14:00 97 /min [facility] Systolic blood pressure 2023-09-18 15:40:00 92 mm[Hg] [facility] Diastolic blood pressure 2023-09-18 15:40:00 80 mm[Hg] [facility] Heart rate 2023-09-18 15:40:00 65 /min [facility] Body temperature 2023-09-18 15:40:00 36.17 [facility] Respiratory rate 2023-09-18 15:40:00 14 /min [facility] Oxygen saturation in Arterial blood by Pulse oximetry 2023-09-18 15:40:00 97 /min [facility] Body weight 2023-09-12 17:00:00 44.906 kg [facility] BMI 2023-09-12 17:00:00 20.00 kg/m2 [facility] Heart rate 2023-09-18 15:40:00 65 /min [facility] Body temperature 2023-09-18 15:40:00 36.17 [facility] Respiratory rate 2023-09-18 15:40:00 14 /min [facility] Oxygen saturation in Arterial blood by Pulse oximetry 2023-09-18 15:40:00 97 /min [facility] Systolic blood pressure 2023-09-18 15:40:00 92 mm[Hg] [facility] Diastolic blood pressure 2023-09-18 15:40:00 80 mm[Hg] [facility] Body weight 2023-09-12 17:00:00 44.906 kg [facility] BMI 2023-09-12 17:00:00 20.00 kg/m2 [facility] Body height 2023-09-12 13:05:00 149.9 cm [facility] Body weight 2023-09-12 13:05:00 44.906 kg [facility] BMI 2023-09-12 13:05:00 20.00 kg/m2 [facility] Systolic blood pressure 2023-09-08 18:09:00 115 mm[Hg] [facility] Diastolic blood pressure 2023-09-08 18:09:00 72 mm[Hg] [facility] Heart rate 2023-09-08 18:09:00 85 /min [facility] Body temperature 2023-09-08 18:09:00 36.17 [facility] Respiratory rate 2023-09-08 18:09:00 18 /min [facility] Body height 2023-09-08 18:09:00 149.9 cm [facility] Body weight 2023-09-08 18:09:00 44.044 kg [facility] BMI 2023-09-08 18:09:00 19.61 kg/m2 [facility] Oxygen saturation in Arterial blood by Pulse oximetry 2023-09-08 18:09:00 96 /min [facility] Systolic blood pressure 2023-06-15 15:30:00 102 mm[Hg] [facility] Diastolic blood pressure 2023-06-15 15:30:00 61 mm[Hg] [facility] Heart rate 2023-06-15 15:30:00 80 /min [facility] Body height 2023-06-15 15:30:00 147.3 cm [facility] Body weight 2023-06-15 15:30:00 45.133 kg [facility] BMI 2023-06-15 15:30:00 20.80 kg/m2 [facility] Oxygen saturation in Arterial blood by Pulse oximetry 2023-06-15 15:30:00 96 /min [facility] Body height 2023-05-25 14:23:00 147.3 cm [facility] Body weight 2023-05-25 14:23:00 44.997 kg [facility] BMI 2023-05-25 14:23:00 20.73 kg/m2 [facility] Systolic blood pressure 2023-05-14 15:26:00 120 mm[Hg] [facility] Diastolic blood pressure 2023-05-14 15:26:00 76 mm[Hg] [facility] Heart rate 2023-05-14 15:26:00 87 /min [facility] Body temperature 2023-05-14 15:26:00 36.5 [facility] Respiratory rate 2023-05-14 15:26:00 14 /min [facility] Body height 2023-05-14 15:26:00 147.3 cm [facility] Body weight 2023-05-14 15:26:00 46.267 kg [facility] BMI 2023-05-14 15:26:00 21.32 kg/m2 [facility] Oxygen saturation in Arterial blood by Pulse oximetry 2023-05-14 15:26:00 95 /min [facility] Systolic blood pressure 2022-12-21 15:44:00 113 mm[Hg] [facility] Diastolic blood pressure 2022-12-21 15:44:00 71 mm[Hg] [facility] Heart rate 2022-12-21 15:44:00 91 /min [facility] Body temperature 2022-12-21 15:44:00 36.44 [facility] Respiratory rate 2022-12-21 15:44:00 20 /min [facility] Body height 2022-12-21 15:44:00 147.3 cm [facility] [facility] Body weight 2022-12-21 15:44:00 47.628 kg [facility] BMI 2022-12-21 15:44:00 21.95 kg/m2 [facility] Oxygen saturation in Arterial blood by Pulse oximetry 2022-12-21 15:44:00 98 /min [facility] Systolic blood pressure 2022-12-21 15:44:00 113 mm[Hg] [facility] Diastolic blood pressure 2022-12-21 15:44:00 71 mm[Hg] [facility] Heart rate 2022-12-21 15:44:00 91 /min [facility] Body temperature 2022-12-21 15:44:00 36.44 [facility] Respiratory rate 2022-12-21 15:44:00 20 /min [facility] Body height 2022-12-21 15:44:00 147.3 cm [facility] Body weight 2022-12-21 15:44:00 47.628 kg [facility] BMI 2022-12-21 15:44:00 21.95 kg/m2 [facility] Oxygen saturation in Arterial blood by Pulse oximetry 2022-12-21 15:44:00 98 /min [facility] Systolic blood pressure 2022-11-11 21:27:00 130 mm[Hg] [facility] Diastolic blood pressure 2022-11-11 21:27:00 74 mm[Hg] [facility] Heart rate 2022-11-11 21:27:00 88 /min [facility] Body height 2022-11-11 21:27:00 148.6 cm [facility] Body weight 2022-11-11 21:27:00 48.535 kg [facility] BMI 2022-11-11 21:27:00 21.98 kg/m2 [facility] Oxygen saturation in Arterial blood by Pulse oximetry 2022-11-11 21:27:00 96 /min [facility] Systolic blood pressure 2022-10-21 14:00:00 112 mm[Hg] [facility] Diastolic blood pressure 2022-10-21 14:00:00 70 mm[Hg] [facility] Heart rate 2022-10-21 14:00:00 83 /min [facility] Body temperature 2022-10-21 14:00:00 36.78 [facility] Body height 2022-10-21 14:00:00 147.3 cm [facility] Body weight 2022-10-21 14:00:00 47.673 kg [facility] BMI 2022-10-21 14:00:00 21.97 kg/m2 [facility] Oxygen saturation in Arterial blood by Pulse oximetry 2022-10-21 14:00:00 94 /min [facility] Systolic blood pressure 2022-10-16 20:00:00 127 mm[Hg] [facility] Diastolic blood pressure 2022-10-16 20:00:00 77 mm[Hg] [facility] Heart rate 2022-10-16 20:00:00 61 /min [facility] Respiratory rate 2022-10-16 20:00:00 17 /min [facility] Oxygen saturation in Arterial blood by Pulse oximetry 2022-10-16 20:00:00 94 /min [facility] Body temperature 2022-10-16 16:27:00 37.28 [facility] Body height 2022-10-16 16:27:00 147.3 cm [facility] Body weight 2022-10-16 16:27:00 45.36 kg [facility] BMI 2022-10-16 16:27:00 20.90 kg/m2 [facility] Systolic blood pressure 2022-10-16 15:59:00 134 mm[Hg] [facility] Diastolic blood pressure 2022-10-16 15:59:00 81 mm[Hg] [facility] Heart rate 2022-10-16 15:59:00 79 /min [facility] Body temperature 2022-10-16 15:59:00 36.39 [facility] Respiratory rate 2022-10-16 15:59:00 14 /min [facility] Body height 2022-10-16 15:59:00 149.9 cm [facility] Body weight 2022-10-16 15:59:00 47.174 kg [facility] BMI 2022-10-16 15:59:00 21.01 kg/m2 [facility] Oxygen saturation in Arterial blood by Pulse oximetry 2022-10-16 15:59:00 97 /min [facility] Systolic blood pressure 2022-09-07 17:00:00 109 mm[Hg] [facility] Diastolic blood pressure 2022-09-07 17:00:00 74 mm[Hg] [facility] Heart rate 2022-09-07 17:00:00 76 /min [facility] Body temperature 2022-09-07 17:00:00 36.22 [facility] Body height 2022-09-07 17:00:00 149.9 cm [facility] Body weight 2022-09-07 17:00:00 47.582 kg [facility] BMI 2022-09-07 17:00:00 21.19 kg/m2 [facility] Oxygen saturation in Arterial blood by Pulse oximetry 2022-09-07 17:00:00 95 /min [facility] Systolic blood pressure 2022-07-20 14:36:00 104 mm[Hg] [facility] Diastolic blood pressure 2022-07-20 14:36:00 65 mm[Hg] [facility] Heart rate 2022-07-20 14:36:00 78 /min [facility] Res[facility] 2022-07-20 14:36:00 18 /min [facility] Body height 2022-07-20 14:36:00 147.3 cm [facility] Body weight 2022-07-20 14:36:00 48.081 kg [facility] BMI 2022-07-20 14:36:00 22.15 kg/m2 [facility] Oxygen saturation in Arterial blood by Pulse oximetry 2022-07-20 14:36:00 95 /min [facility] Systolic blood pressure 2022-07-20 14:30:00 104 mm[Hg] [facility] Diastolic blood pressure 2022-07-20 14:30:00 65 mm[Hg] [facility] Heart rate 2022-07-20 14:30:00 78 /min [facility] Respiratory rate 2022-07-20 14:30:00 18 /min [facility] Body height 2022-07-20 14:30:00 147.3 cm [facility] Body weight 2022-07-20 14:30:00 48.081 kg [facility] BMI 2022-07-20 14:30:00 22.15 kg/m2 [facility] Oxygen saturation in Arterial blood by Pulse oximetry 2022-07-20 14:30:00 95 /min [facility] Body height 2022-04-21 16:25:00 149.9 cm [facility] Body weight 2022-04-21 16:25:00 47.174 kg [facility] BMI 2022-04-21 16:25:00 21.01 kg/m2 [facility] Systolic blood pressure 2022-04-20 20:55:00 116 mm[Hg] [facility] Diastolic blood pressure 2022-04-20 20:55:00 69 mm[Hg] [facility] Heart rate 2022-04-20 20:55:00 86 /min [facility] Respiratory rate 2022-04-20 20:55:00 18 /min [facility] Body weight 2022-04-20 20:55:00 47.174 kg [facility] BMI 2022-04-20 20:55:00 21.01 kg/m2 [facility] Oxygen saturation in Arterial blood by Pulse oximetry 2022-04-20 20:55:00 96 /min [facility] Systolic blood pressure 2022-04-15 18:34:00 109 mm[Hg] [facility] Diastolic blood pressure 2022-04-15 18:34:00 74 mm[Hg] [facility] Heart rate 2022-04-15 18:34:00 94 /min [facility] Body temperature 2022-04-15 18:34:00 36.83 [facility] Respiratory rate 2022-04-15 18:34:00 16 /min [facility] Body height 2022-04-15 18:34:00 149.9 cm [facility] Body weight 2022-04-15 18:34:00 47.854 kg [facility] BMI 2022-04-15 18:34:00 21.31 kg/m2 [facility] Oxygen saturation in Arterial blood by Pulse oximetry 2022-04-15 18:34:00 95 /min [facility] Systolic blood pressure 2022-03-07 14:18:00 110 mm[Hg] [facility] Diastolic blood pressure 2022-03-07 14:18:00 71 mm[Hg] [facility] Heart rate 2022-03-07 14:18:00 86 /min [facility] Body temperature 2022-03-07 14:18:00 36.44 [facility] Respiratory rate 2022-03-07 14:18:00 18 /min [facility] Body height 2022-03-07 14:18:00 147.3 cm [facility] Body weight 2022-03-07 14:18:00 46.267 kg [facility] BMI 2022-03-07 14:18:00 21.32 kg/m2 [facility] Systolic blood pressure 2022-03-02 14:06:00 127 mm[Hg] [facility] Diastolic blood pressure 2022-03-02 14:06:00 70 mm[Hg] [facility] Heart rate 2022-03-02 14:06:00 84 /min [facility] Body weight 2022-03-02 14:06:00 47.945 kg [facility] BMI 2022-03-02 14:06:00 22.09 kg/m2 [facility] Oxygen saturation in Arterial blood by Pulse oximetry 2022-03-02 14:06:00 97 /min [facility] Systolic blood pressure 2022-02-22 22:00:00 124 mm[Hg] [facility] Diastolic blood pressure 2022-02-22 22:00:00 81 mm[Hg] [facility] Heart rate 2022-02-22 22:00:00 78 /min [facility] Body temperature 2022-02-22 22:00:00 36.5 [facility] Respiratory rate 2022-02-22 22:00:00 21 /min [facility] Oxygen saturation in Arterial blood by Pulse oximetry 2022-02-22 22:00:00 95 /min [facility] Body weight 2022-02-22 09:31:00 48.988 kg [facility] BMI 2022-02-22 09:31:00 22.57 kg/m2 [facility] Body height 2022-02-20 22:03:00 147.3 cm [facility] Systolic blood pressure 2022-02-20 17:08:00 116 mm[Hg] [facility] Diastolic blood pressure 2022-02-20 17:08:00 71 mm[Hg] [facility] Heart rate 2022-02-20 17:08:00 83 /min [facility] Body temperature 2022-02-20 17:08:00 37.06 [facility] Respiratory rate 2022-02-20 17:08:00 16 /min [facility] Body height 2022-02-20 17:08:00 175.3 cm [facility] Body weight 2022-02-20 17:08:00 89.767 kg [facility] BMI 2022-02-20 17:08:00 29.22 kg/m2 [facility] Oxygen saturation in Arterial blood by Pulse oximetry 2022-02-20 17:08:00 98 /min [facility] Systolic blood pressure 2022-02-08 16:10:00 132 mm[Hg] [facility] Diastolic blood pressure 2022-02-08 16:10:00 73 mm[Hg] [facility] Heart rate 2022-02-08 16:10:00 76 /min [facility] Body temperature 2022-02-08 16:10:00 37.06 [facility] Respiratory rate 2022-02-08 16:10:00 16 /min [facility] Body height 2022-02-08 16:10:00 147.3 cm [facility] Body weight 2022-02-08 16:10:00 48.223 kg [facility] BMI 2022-02-08 16:10:00 22.22 kg/m2 [facility] Oxygen saturation in Arterial blood by Pulse oximetry 2022-02-08 16:10:00 98 /min [facility] Systolic blood pressure 2021-08-07 15:15:00 113 mm[Hg] [facility] Diastolic blood pressure 2021-08-07 15:15:00 75 mm[Hg] [facility] Heart rate 2021-08-07 15:15:00 75 /min [facility] Body temperature 2021-08-07 15:15:00 36.94 [facility] Respiratory rate 2021-08-07 15:15:00 14 /min [facility] Body height 2021-08-07 15:15:00 147.3 cm [facility] Body weight 2021-08-07 15:15:00 48.308 kg [facility] BMI 2021-08-07 15:15:00 22.26 kg/m2 [facility] Oxygen saturation in Arterial blood by Pulse oximetry 2021-08-07 15:15:00 98 /min [facility] Systolic blood pressure 2021-08-06 01:32:00 137 mm[Hg] [facility] Diastolic blood pressure 2021-08-06 01:32:00 81 mm[Hg] [facility] Heart rate 2021-08-06 01:32:00 76 /min [facility] Body temperature 2021-08-06 01:32:00 36.28 [facility] Respiratory rate 2021-08-06 01:32:00 16 /min [facility] Body height 2021-08-06 01:32:00 147.3 cm [facility] Body weight 2021-08-06 01:32:00 49.896 kg [facility] BMI 2021-08-06 01:32:00 22.99 kg/m2 [facility] Oxygen saturation in Arterial blood by Pulse oximetry 2021-08-06 01:32:00 99 /min [facility] Systolic blood pressure 2021-08-06 00:58:00 133 mm[Hg] [facility] Diastolic blood pressure 2021-08-06 00:58:00 77 mm[Hg] [facility] Heart rate 2021-08-06 00:58:00 70 /min [facility] Body temperature 2021-08-06 00:58:00 36.78 [facility] Respiratory rate 2021-08-06 00:58:00 16 /min [facility] Body height 2021-08-06 00:58:00 147.3 cm [facility] Body weight 2021-08-06 00:58:00 48.535 kg [facility] BMI 2021-08-06 00:58:00 22.36 kg/m2 [facility] Oxygen saturation in Arterial blood by Pulse oximetry 2021-08-06 00:58:00 99 /min [facility] Systolic blood pressure 2021-07-26 16:52:00 114 mm[Hg] [facility] Diastolic blood pressure 2021-07-26 16:52:00 72 mm[Hg] [facility] Heart rate 2021-07-26 16:52:00 81 /min [facility] Body height 2021-07-26 16:52:00 147.3 cm [facility] Body weight 2021-07-26 16:52:00 47.9 kg [facility] BMI 2021-07-26 16:52:00 22.07 kg/m2 [facility] Oxygen saturation in Arterial blood by Pulse oximetry 2021-07-26 16:52:00 96 /min [facility] Procedures Procedure Date / Time Performed Performing Clinician Source XR HIPS 2 VW LEFT 2024-05-23 15:32:23 Caitlyn Rosario [facility] XR HIPS 2 VW LEFT 2024-02-19 22:50:54 Caitlyn Rosario [facility] DEXA AXIAL (HIP AND SPINE) 2024-02-15 16:21:00 Jerry Ibarra [facility] XR HIPS 2 VW LEFT 2024-01-08 16:30:00 Caitlyn Rosario [facility] TOTAL HIP ARTHROPLASTY 2024-01-08 13:54:00 Ania Rosario [facility] CBC WITH DIFF 2024-01-08 12:50:00 Bhavik Leon [facility] HB ABO GROUPING 2024-01-08 12:50:00 Caitlyn Rosario [facility] CBC WITH DIFF 2024-01-08 12:50:00 hBavik Leon [facility] HB ABO GROUPING 2024-01-08 12:50:00 Caitlyn Rosario [facility] DSU PRE-OP 2024-01-02 14:43:48 Doctor Unass igned, [place] [facility] XR HIPS 3 VW LEFT 2023-12-19 13:55:09 Caitlyn Rosario [facility] FL TIME OR (NON-REPORTABLE) 2023-09-18 15:10:43 Caitlyn Rosario [facility] FL TIME OR (NON-REPORTABLE) 2023-09-18 15:10:43 Caitlyn Rosario [facility] [id number] - [place] ARTHROCENTESIS ASPIR&/INJ MAJOR JT/BURSA W/O US 2023-09-18 14:49:00 Caitlyn Rosario [facility] [id number] - CHG CT GUIDANCE NEEDLE PLACEMENT 2023-09-18 14:49:00 Caitlyn Rosario [facility] NON-UTMB ORDERS 2023-09-12 15:30:49 Doctor Unass igned, [place] [facility] XR HIPS 2 VW LEFT 2023-05-25 14:35:08 Caitlyn Rosario [facility] PHYSICIAN CERTIFICATION STATEMENT 2023-05-23 06:01:00 Doctor Unassigned, [place] [facility] AUTHORIZATION FOR RELEASE OF PHI 2023-02-03 05:01:00 Doctor Unassigned, [place] [facility] DME/SUPPLY JUSTIFICATION 2023-01-24 05:01:00 Doc tor Unassigned, [place] [facility] FLU VACC([id number]),65+YR,0.5 ML,IM,ADJUVANTED,QUAD(FLU AD) 2023-01-20 20:16:03 Doctor Unassigned, [place] [facility] URINE CULTURE 2022-12-21 16:59:00 [facility], 25-OH 2022-12-21 16:22:00 Shakira Ortiz [facility] VITAMIN B12, LEVEL 2022-12-21 16:22:00 Maritza Bear [facility] FOLATE 2022-12-21 16:22:00 Norberto Bear [facility] VITAMIN D, 25-OH 2022-12-21 16:22:00 Shakira Ortiz [facility] TROPONIN I 2022-10-16 18:40:00 Aysha Alonso [facility] XR CHEST 2 VW 2022-10-16 17:19:52 Aysha Alonso [facility] CT HEAD WO CONTRAST 2022-10-16 17:19:28 Payton Alonso [facility] MAGNESIUM 2022-10-16 16:48:00 Aysha Alonso Un [facility] TROPONIN I 2022-10-16 16:48:00 Aysha Alonso [facility] COMP. METABOLIC PANEL ([id number]) 2022-10-16 16:48:00 Aysha Alonso [facility] CBC WITH DIFF 2022-10-16 16:48:00 Aysha Alonso [facility] PROTHROMBIN TIME / INR 2022-10-16 16:48:00 Aysha Alonso [facility] ACTIVATED PARTIAL THRMPLAS YEIMY 2022-10-16 16:48:00 Aysha Alonso [facility] URINALYSIS 2022-10-16 16:48:00 Aysha Alonso [facility] N-TERMINAL PRO-BNP 2022-10-16 16:48:00 Lisa Alonso [facility] CONSENT/REFUSAL FOR DIAGNOSIS AND TREATMENT 2022-10-16 16:21:49 Doctor Unassigned, [place] [facility] CONSENT/REFUSAL FOR DIAGNOSIS AND TREATMENT 2022-09-07 16:50:18 Doctor Unassigned, [place] [facility] DEXA AXIAL (HIP AND SPINE) 2022-07-04 18:00:26 Cassia Parker [facility] XR CHEST 2 VW 2022-03-07 15:36:04 Doron Ortiz [facility] ASSIGNMENT OF BENEFITS 2022-03-07 15:15:21 Docto r Unassigned, [place] [facility] MAGNESIUM 2022-02-22 09:31:00 Venecia Calloway [facility] BASIC METABOLIC PANEL (NA, K, CL, CO2, GLUCOSE, BUN, CREATININE, CA) 2022-02-22 09:31:00 Venecia Calloway [facility] TROPONIN I 2022-02-21 21:51:00 Venecia Calloway [facility] TRANSTHORACIC ECHO (TTE) COMPLETE 2022-02-21 17:31:00 Alonso Monaco [facility] MAGNESIUM 2022-02-21 11:50:00 Venecia Calloway [facility] TROPONIN I 2022-02-21 11:50:00 Venecia Calloway [facility] BASIC METABOLIC PANEL (NA, K, CL, CO2, GLUCOSE, BUN, CREATININE, CA) 2022-02-21 11:50:00 Horacio [facility] LIPID PANEL ([id number])(TOTAL CHOLESTEROL, TRIGLYCERIDES, HDL) 2022-02-21 11:50:00 Alonso Monaco [facility] CBC WITH DIFF 2022-02-21 11:50:00 Venecia Calloway [facility] PNEUMOCOCCAL ANTIGEN 2022-02-21 06:45:00 Venecia Calloway [facility] TROPONIN I 2022-02-21 06:44:00 Venecia Calloway [facility] TROPONIN I 2022-02-20 23:23:00 Venecia Calloway [facility] THYROID STIMULATING HORMONE 2022-02-20 23:23[facility]-20 23:23:00 Venecia Calloway [facility] MRSA / MSSA SCREEN BY PCR, NARES 2022-02-20 23:23:00 Venecia Calloway [facility] CT CHEST PULMONARY ANGIOGRAM 2022-02-20 19:40:10 Rene Kay [facility] HB ECG ROUTINE & RHYTHM STRIP 2022-02-20 18:50:04 Rene Kay [facility] TROPONIN I 2022-02-20 18:45:00 Rene Kay [facility] COMP. METABOLIC PANEL ([id number]) 2022-02-20 18:45:00 Rene Kay [facility] CBC WITH DIFF 2022-02-20 18:45:00 Rene Kay [facility] GLYCOSYLATED HEMOGLOBIN (A1C) 2022-02-20 18:45:00 Alonso Monaco [facility] COVID-19 (ID NOW RAPID TESTING) 2022-02-20 18:45:00 Rene Kay [facility] LAB ONLY COVID INTERPRETATION 2022-02-20 18:45:00 Rene Kay [facility] POCT SARS-COV-2 ANTIGEN (BINAX NOW) 2022-02-20 18:18:00 Tracey Cedeno [facility] CONSENT/REFUSAL FOR DIAGNOSIS AND TREATMENT 2022-02-20 18:17:21 Doctor Unassigned, [place] [facility] POCT MOLECULAR STREP 2022-02-20 17:28:00 Unknown, Atte haylie [facility] POCT MOLECULAR FLU 2022-02-20 17:27:00 Unknown, Attend ing [facility] NOTICE OF PRIVACY PRACTICES 2021-08-06 01:19:38 Doctor Unassigned, [place] [facility] CONSENT/REFUSAL FOR DIAGNOSIS AND TREATMENT 2021-08-06 01:13:34 Doctor Unassigned, [place] [facility] ASSIGNMENT OF BENEFITS 2021-08-06 00:29:21 Docto r Unassigned, [place] [facility] CONSENT TO CONTACT FOR VOLUNTARY RESEARCH 2017-03-01 12:56:51 Doctor Unassigned, [place] [facility] NOTICE OF PRIVACY PRACTICES 2017-03-01 12:56:29 Doctor Unassigned, [place] [facility] CONSENT/REFUSAL FOR DIAGNOSIS AND TREATMENT 2017-03-01 12:56:03 Doctor Unassigned, [place] [facility] ASSIGNMENT OF BENEFITS 2017-03-01 12:55:45 Docto r Unassigned, [place] [facility] PATIENT QUESTIONNAIRE 2017-03-01 06:01:00 Doctor Unassigned, [place] [facility] AGREEMENTS AUTHORIZATIONS AND IRREVOCABLE ASSIGNMENTS (FORM 2001) 2017-03-01 06:01:00 Doctor Unassigned, [place] [facility] Encounters Start Date/Time End Date/Time Encounter Type Admission Type Attending [facility] Care Facility Care Department Encounter ID Source 2023-09-12 00:00:00 2024-06-01 07:40:41 Orders Only Doctor Unassigned, [place] Doctor Unassigned, [place] [facility] [id number] 350.1.13.10 4.2.7.2.686 [id number] [facility] 2024-01-02 00:00:00 2024-06-01 06:57:57 Orders Only Doctor Unassigned, [place] Doctor Unassigned, [place] [facility] [id number] 350.1.13.10 4.2.7.2.686 [id number] [facility] 2017-02-22 00:00:00 2024-06-01 03:34:05 Orders Only Nuria Chawla Anita L [facility] [id number] 350.1.13.10 4.2.7.2.686 [id number] [facility] 2024-05-30 09:00:00 2024-05-30 11:06:24 Nurse Visit 1, Ad[facility] Amb Infusion Room Jerry Ibarra H 1, [facility] Pob Amb Infusion Room [facility] [id number] 350.1.13.10 4.2.7.2.686 [id number] [facility] 2024-05-30 09:00:00 2024-05-30 09:00:00 Outpatient R JERRY IBARRA [facility] [id number] [facility] 2024-05-28 00:00:00 2024-05-28 16:16:01 Telephone Caitlyn Rosario [facility] [id number] 350.1.13.10 4.2.7.2.686 [id number] [facility] 2024-05-23 09:06:44 2024-05-23 23:59:00 Hospital Encounter Caitlyn Rosario [facility] 1.840.114 350.1.13.10 4.2.7.2.686 [id number] [facility] 2024-05-23 09:00:00 2024-05-23 09:44:54 Outpatient R CAITLYN ROSARIO CRAIG [facility] [id number] [facility] 2024-05-23 09:00:00 2024-05-23 09:44:54 Office Visit Caitlyn Rosario [facility] 1.840.114 350.1.13.10 4.2.7.2.686 [id number] [facility] 2024-05-21 13:00:00 2024-05-21 13:00:00 Outpatient R [facility] [id number] [facility] 2024-05-13 00:00:00 2024-05-13 15:24:25 Telephone Thiago [facility] 1.84.114 350.1.13.10 4.2.7.2.686 [id number] [facility] 2024-05-09 00:00:00 2024-05-13 15:24:06 Telephone [facility] 1.84.114 350.1.13.10 4.2.7.2.686 [id number] [facility] 2024-05-13 00:00:00 2024-05-13 12:45:08 Pre Visit Outreach Maritza Ralph Elizabeth J [place] [id number] 350.1.13.10 4.2.7.2.686 [id number] [facility] 2024-05-10 10:30:00 2024-05-10 11:15:05 Outpatient R JERRY IBARRA [facility] [id number] [facility] 2024-05-10 10:30:00 2024-05-10 11:15:05 Office Visit [facility] 1.2.840.114 350.1.13.10 4.2.7.2.686 [id number] [facility] 2024-05-08 00:00:00 2024-05-10 11:10:36 Telephone Loyda [facility]cd[facility]ough [facility] 1.2.840.114 350.1.13.10 4.2.7.2.686 [id number] 044 [id number] [facility] 2024-05-01 00:00:00 2024-05-01 10:02:29 Telephone [facility] 1.2.840.114 350.1.13.10 4.2.7.2.686 [id number] [facility] 2024-03-19 00:00:00 2024-03-19 16:47:50 Telephone Pawan Caitlyn Cain [facility]IE [facility] OFF[facility] BUILDING 1.2.840.114 350.1.13.10 4.2.7.2.686 [id number] 198 [id number] [facility] 2024-03-13 00:00:00 2024-03-19 09:30:05 Telephone Loyda [facility]cdonough [facility] 1.2.840.114 350.1.13.10 4.2.7.2.686 [id number] 044 [id number] [facility] 2024-02-28 00:00:00 2024-02-28 11:27:30 Telephone Pawan Caitlyn Cain [facility]?ROSIE [facility] 1.2.840.114 350.1.13.10 4.2.7.2.686 [id number] 198 [id number] [facility] 2024-02-22 10:00:00 2024-02-22 10:00:00 Outpatient R CAITLYN ROSARIO CRAIG [facility] [id number] [facility] 2024-02-20 00:00:00 2024-02-20 14:21:36 Telephone Caitlyn Rosario [facility] 1.2840.114 350.1.13.10 4.2.7.2.686 [id number] 198 [id number] [facility] 2024-02-19 16:34:53 2024-02-19 23:59:00 Outpatient R CAITLYN ROSARIO [facility] [id number] [facility] 2024-02-19 16:34:53 2024-02-19 23:59:00 Hospital Encounter Caitlyn Rosario [facility] 1.2.840.114 350.1.13.10 4.2.7.2.686 [id number] [id number] [facility] 2024-02-19 16:15:00 2024-02-19 17:00:31 Office Visit Caitlyn [facility] MED[facility] OFFICE BUILDING 1.2.840.114 350.1.13.10 4.2.7.2.686 [id number] [facility] 2024-02-16 00:00:00 2024-02-16 14:41:13 Telephone Erasto Trent Miatha R [facility] 1.2.840.114 350.1.13.10 4.2.7.2.686 [id number] [facility] 2024-02-15 10:04:25 2024-02-15 23:59:00 Hospital Encounter Jerry Ibarra [facility] 1.2.840.114 350.1.13.10 4.2.7.2.686 [id number] 800 [id number] [facility] 2024-02-15 10:04:25 2024-02-15 23:59:00 Outpatient R JERRY IBARRA [facility] [id number] [facility] 2024-02-14 00:00:00 2024-02-15 10:15:10 Telephone Caitlyn Ros[facility]IE [facility] OFF[facility] BUILDING 1.2.840.114 350.1.13.10 4.2.7.2.686 [id number] 198 [id number] [facility] 2024-01-10 00:00:00 2024-02-10 18:20:07 Patient Secure Msg Doctor Unassigned, [place] Doctor Unassigned, [place] [facility] 1.2.840.114 350.1.13.10 4.2.7.2.686 [id number] 198 [id number] [facility] 2024-02-08 00:00:00 2024-02-08 09:14:13 Telephone ThiagoLoyda [facility]IE [facility] OFF[facility] BUILDING 1.2.840.114 350.1.13.10 4.2.7.2.686 [id number] 044 [id number] [facility] 2024-01-31 00:00:00 2024-01-31 16:15:09 Telephone Caitlyn Ros[facility]IE [facility] BUILD[facility] 1.2.840.114 350.1.13.10 4.2.7.2.686 [id number] 198 [id number] [facility] 2024-01-22 14:51:15 2024-01-22 23:59:00 Hospital Encounter Caitlyn Rosario [facility] 1.2.840.114 350.1.13.10 4.2.7.2.686 [id number] [id number] [facility] 2024-01-22 14:30:00 2024-01-22 15:19:11 Outpatient R ROSARIO CAITLYN MARTINES [facility] [id number] [facility] 2024-01-22 14:30:00 2024-01-22 15:19:11 Office Visit Caitlyn Rosario [facility] MED[facility] OFFICE BUILDING 1.2840.114 350.1.13.10 4.2.7.2.686 [id number] 198 [id number] [facility] 2024-01-19 00:00:00 2024-01-19 13:47:23 Telephone Caitlyn Ros[facility] 1.840.114 350.1.13.10 4.2.7.2.686 [id number] 198 [id number] [facility] 2024-01-10 00:00:00 2024-01-12 09:06:05 Telephone Loyda Mcdonough [facility] BU[facility] 1.2.840.114 350.1.13.10 4.2.7.2.686 [id number] 198 [id number] [facility] 2024-01-11 09:00:00 2024-01-11 09:23:32 Outpatient R ROSARIO CAITLYN ROSARIO CAITLYN [facility] [id number] [facility] 2024-01-11 09:00:00 2024-01-11 09:23:32 Office Visit JuanitaBrianna mccall PawanCaitlyn [facility] BU[facility] 1.2.840.114 350.1.13.10 4.2.7.2.686 [id number] 198 [id number] [facility] 2024-01-09 00:00:00 2024-01-10 15:33:06 Telephone Caitlyn Rosario [facility] BU[facility] 1.2840.114 350.1.13.10 4.2.7.2.686 [id number] [facility] 2024-01-08 07:32:00 2024-01-08 14:20:00 Outpatient R CAITLYN ROSARIO CRAIG [facility] [id number] [facility] 2024-01-08 07:32:00 2024-01-08 14:20:00 Hospital Encounter Caitlyn Rosario [facility] 1.2840.114 350.1.13.10 4.2.7.2.686 [id number] [id number] [facility] 2024-01-08 09:20:00 2024-01-08 12:19:00 Surgery Caitlyn Rosario [facility] 1.840.114 350.1.13.10 4.2.7.2.686 [id number] 020 [id number] [facility] 2024-01-05 00:00:00 2024-01-05 14:21:57 Telephone Caitlyn Rosario [facility] BUILD[facility] 1..840.114 350.1.13.10 4.2.7.2.686 [id number] 198 [id number] [facility] 2024-01-02 09:15:00 2024-01-02 09:30:00 [employer] 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, Adc Lab Caitlyn Rosario 2, Adc Lab [facility] PROFESSIO NAL BUILDING 1..840.114 350.1.13.10 4.2.7.2.686 [id number] [facility] 2024-01-02 09:15:00 2024-01-02 09:15:00 Outpatient R CAITLYN [facility] [id number] [facility] 2023-12-29 10:15:00 2023-12-29 11:12:05 Outpatient R CAITLYN ROSARIO CRAIG [facility] [id number] [facility] 2023-12-29 10:15:00 2023-12-29 11:12:05 Ancillary Visit Kumar Choe Craig L Brown, Robert F [facility] 1..840.114 350.1.13.10 4.2.7.2.686 [id number] [facility] 2023-12-19 08:40:11 2023-12-19 23:59:00 Outpatient R CAITLYN ROSARIO CAITLYN [facility] [id number] [facility] 2023-12-19 08:40:11 2023-12-19 23:59:00 Hospital Encounter Caitlyn Rosario [facility] BU[facility] 1.2.840.114 350.1.13.10 4.2.7.2.686 [id number] [facility] 2023-12-19 00:00:00 2023-12-19 12:03:24 Prep For Surgery Caitlyn Rosario [facility] BUILD[facility] 1.2.840.114 350.1.13.10 4.2.7.2.686 [id number] [facility] 2023-12-19 09:00:00 2023-12-19 09:27:53 Office Visit Caitlyn Rosario [facility] 1..840.114 350.1.13.10 4.2.7.2.686 [id number] 198 [id number] [facility] 2023-12-15 10:30:00 2023-12-15 11:45:04 Outpatient JERRY LEY [facility] [id number] [facility] 2023-12-15 10:30:00 2023-12-15 11:45:04 Office Visit Jerry Ibarra Manuel [facility]?ROSIE [facility] MEDICAL OFFICE BUILDING 1..840.114 350.1.13.10 4.2.7.2.686 [id number] [facility] 2023-11-10 09:30:00 2023-11-10 09:30:00 Outpatient R JERRY IBARRA [facility] [id number] [facility] 2023-11-07 09:30:00 2023-11-07 09:30:00 Office Visit aCitlyn Rosario [facility]?ROSIE [facility] MEDICAL OFFICE BUILDING 1..840.114 350.1.13.10 4.2.7.2.686 [id number] [facility] 2023-11-07 09:30:00 2023-11-07 09:29:45 Outpatient R CAITLYN ROSARIO CRAIG [facility] [id number] [facility] 2023-10-26 15:20:00 2023-10-26 15:52:36 Outpatient R LOYDA MCDONOUGH LOYDA [facility] [id number] [facility] 2023-10-26 15:20:00 2023-10-26 15:52:36 Office Visit Loyda Mcdonough [facility]?ROSIE [facility] MEDICAL OFFICE BUILDING 1..840.114 350.1.13.10 4.2.7.2.686 [id number] 044 [id number] [facility] 2023-10-24 14:30:00 2023-10-24 15:00:00 Office Visit Betty Grande [facility] 1..840.114 350.1.13.10 4.2.7.2.686 [id number] [id number] [facility] 2023-10-24 14:30:00 2023-10-24 14:30:00 Outpatient BETTY KELLY [facility] [id number] [facility] 2023-10-24 08:00:00 2023-10-24 08:00:00 Outpatient BETTY KELLY [facility] [id number] [facility] 2023-09-11 00:00:00 2023-10-14 18:19:46 Patient Secure Msg Doctor Unassigned, [place] [facility] 1.840.114 350.1.13.10 4.2.7.2.686 [id number] [facility] 2023-10-05 09:30:00 2023-10-05 09:32:11 Outpatient R CAITLYN ROSARIO CRAIG [facility] [id number] [facility] 2023-10-05 09:30:00 2023-10-05 09:32:11 Office Visit Caitlyn Rosario [facility]?ROSIE [facility] MEDICAL OFFICE BUILDING 1.2840.114 350.1.13.10 4.2.7.2.686 [id number] [facility] 2023-09-18 08:52:00 2023-09-18 11:05:00 Outpatient R CAITLYN ROSARIO CRAIG [facility] [id number] [facility] 2023-09-18 08:52:00 2023-09-18 11:05:00 Hospital Encounter Caitlyn Rosario [facility] 1.2840.114 350.1.13.10 4.2.7.2.686 [id number] [facility] 2023-09-18 10:40:00 2023-09-18 11:01:00 Surgery Caitlyn Rosario [facility] 1.2840.114 350.1.13.10 4.2.7.2.686 [id number] 020 [id number] [facility] 2023-09-12 12:15:00 2023-09-12 12:30:00 [employer] 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114 350.1.13.10 4.2.7.2.686 [id number] [facility] 2023-09-12 08:30:00 2023-09-12 08:28:13 Outpatient R ROSARIOCAITLYN CRAIG [facility] [id number] [facility] 2023-09-08 13:00:00 2023-09-08 13:31:32 Outpatient R LOYDA MCDONOUGH [facility] [id number] [facility] 2023-09-08 13:00:00 2023-09-08 13:31:32 Office Visit Thi[facility]?KENISHADasha [facility] OFF[facility] BUILDING 1..840.114 350.1.13.10 4.2.7.2.686 [id number] [facility] 2023-08-24 09:20:00 2023-08-24 09:20:00 Outpatient R LOYDA MCDONOUGH [facility] [id number] [facility] 2023-08-21 10:20:00 2023-08-21 10:20:00 Outpatient R LOYDA MCDONOUGH [facility] [id number] [facility] 2023-06-15 09:45:00 2023-06-15 09:45:00 Office Visit Caitlny Rosario [facility] MED[facility] OFF[facility] BUILDING 1.114 350.1.13.10 4.2.7.2.686 [id number] [facility] 2023-06-15 09:45:00 2023-06-15 09:38:21 Outpatient R CAITLYN ROSARIO CRAIG [facility] [id number] [facility] 2023-06-07 17:42:00 2023-06-07 23:59:00 Hospital Encounter Caitlyn Rosario [facility] 1..114 350.1.13.10 4.2.7.2.686 [id number] [facility] 2023-06-07 00:00:00 2023-06-07 23:59:00 Outpatient R CAITLYN ROSARIO CRAIG [facility] OUT [id number] [facility] 2023-05-31 13:47:32 2023-05-31 23:59:00 Outpatient R CAITLYN ROSARIO CRAIG [facility] [id number] [facility] 2023-05-31 13:47:32 2023-05-31 23:59:00 Hospital Encounter Caitlyn Rosario [facility] ..114 350.1.13.10 4.2.7.2.686 [id number] [facility] 2023-05-31 09:45:00 2023-05-31 10:00:00 [employer] 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 Lab, Ang - Db Caitlyn Rosario [facility] MED[facility] OFF[facility] BUILDING 1..114 350.1.13.10 4.2.7.2.686 [id number] [facility] 2023-05-30 09:58:39 2023-05-30 23:59:00 Outpatient R CAITLYN ROSARIO CRAIG [facility] [id number] [facility] 2023-05-30 09:58:39 2023-05-30 23:59:00 Hospital Encounter RosarioJennifereverette Cain [facility] 1.2.840.114 350.1.13.10 4.2.7.2.686 [id number] [facility] 2023-05-29 00:00:00 2023-05-29 00:00:00 Telephone Caitlyn Rosario [facility] MEDICAL OFFICE BUILDING 1.2.840.114 350.1.13.10 4.2.7.2.686 [id number] [facility] 2023-05-29 00:00:00 2023-05-29 00:00:00 Telephone Caitlyn Rosario [facility] MED[facility] OFF[facility] BUILDING 1.2.840.114 350.1.13.10 4.2.7.2.686 [id number] [facility] 2023-05-25 08:25:14 2023-05-25 23:59:00 Hospital Encounter Caitlyn Rosario [facility] MEDICAL OFFICE BUILDING 1.2.840.114 350.1.13.10 4.2.7.2.686 [id number] [facility] 2023-05-25 08:45:00 2023-05-25 09:11:17 Outpatient R CAITLYN ROSARIO CRAIG [facility] [id number] [facility] 2023-05-25 08:45:00 2023-05-25 09:11:17 Office Visit Caitlyn Rosario [facility] 1.840.114 350.1.13.10 4.2.7.2.686 [id number] [facility] 2023-05-23 00:00:00 2023-05-23 00:00:00 [facility] BUILDING 1.2840.114 350.1.13.10 4.2.7.2.686 [id number] [id number] [facility] 2023-05-23 00:00:00 2023-05-23 00:00:00 Orders Only Doctor Unassigned, [place] [facility] 1.840.114 350.1.13.10 4.2.7.2.686 [id number] [facility] 2023-05-22 00:00:00 2023-05-22 00:00:00 [facility] BUILDING 1.0.114 350.1.13.10 4.2.7.2.686 [id number] [id number] [facility] 2023-05-22 00:00:00 2023-05-22 00:00:00 Telephone DianaDoron [facility] BUILDING 1.0.114 350.1.13.10 4.2.7.2.686 [id number] 044 [id number] [facility] 2023-05-14 09:00:00 2023-05-14 09:20:00 Urgent Care Meseret Nogueira Unknown, Attending [facility] 1.2840.114 350.1.13.10 4.2.7.2.686 [id number] [facility] 2023-05-14 09:00:00 2023-05-14 09:00:00 Outpatient R MESERET NOGUEIRA [facility] [id number] [facility] 2023-03-23 15:00:00 2023-03-23 15:00:00 Outpatient R CAITLYN ROSARIO CRAIG [facility] [id number] [facility] 2023-03-23 00:00:00 2023-03-23 00:00:00 Telephone Caitlyn Rosario [facility] 1.2.840.114 350.1.13.10 4.2.7.2.686 [id number] [facility] 2023-03-22 08:40:00 2023-03-22 08:40:00 Outpatient R OBI-MARIE , DEVAUGHN OBI-MARIE , DEVAUGHN [facility] [id number] [facility] 2023-03-03 00:00:00 2023-03-03 00:00:00 Telephone Milo Ortizzoey [facility] 1.2.840.114 350.1.13.10 4.2.7.2.686 [id number] [id number] [facility] 2023-02-21 00:00:00 2023-02-21 00:00:00 Telephone Tavares Ortizmarcela [facility] BUILDING 1.2.840.114 350.1.13.10 4.2.7.2.686 [id number] 044 [id number] [facility] 2023-02-20 00:00:00 2023-02-20 00:00:00 Telephone Doron Ortiz [facility] BUILDING 1.2.840.114 350.1.13.10 4.2.7.2.686 [id number] 044 [id number] [facility] 2023-02-03 00:00:00 2023-02-03 00:00:00 Orders Only Doctor Unassigned, [place] [facility] 1.2840.114 350.1.13.10 4.2.7.2.686 [id number] [facility] 2023-02-02 00:00:00 2023-02-02 00:00:00 Telephone Doron Ortiz [facility] 1.2.840.114 350.1.13.10 4.2.7.2.686 [id number] [id number] [facility] 2023-01-24 00:00:00 2023-01-24 00:00:00 Pre Visit Outreach Doron Ortiz [facility] BUILDING 1.2.840.114 350.1.13.10 4.2.7.2.686 [id number] 044 [id number] [facility] 2023-01-24 00:00:00 2023-01-24 00:00:00 Orders Only Doctor Unassigned, [place] [facility] 1.2840.114 350.1.13.10 4.2.7.2.686 [id number] [facility] 2023-01-20 15:20:00 2023-01-20 15:40:00 Imm/Inj Visit Nurse, Doron Hawley [facility] 1.2.840.114 350.1.13.10 4.2.7.2.686 [id number] 044 [id number] [facility] 2023-01-20 15:20:00 2023-01-20 15:20:00 Outpatient R DORON ORTIZ OGECHUKWU [facility] [id number] [facility] 2023-01-20 00:00:00 2023-01-20 00:00:00 Telephone Doron Ortiz [facility] 1.2.840.114 350.1.13.10 4.2.7.2.686 [id number] 044 [id number] [facility] 2023-01-19 00:00:00 2023-01-19 00:00:00 Telephone Doron Ortiz [facility] BUILDING 1.2.840.114 350.1.13.10 4.2.7.2.686 [id number] 044 [id number] [facility] 2022-12-28 13:00:00 2022-12-28 13:00:00 Outpatient R DORON ORTIZ OGECHUKWU [facility] [id number] [facility] 2022-12-23 00:00:00 2022-12-23 00:00:00 Telephone Doron Ortiz [facility] BUILDING 1.2.840.114 350.1.13.10 4.2.7.2.686 [id number] [id number] [facility] 2022-12-21 11:15:00 2022-12-21 11:30:00 [employer] 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, Adc Lab Doron Ortiz [facility] BUILDING 1.2.840.114 350.1.13.10 4.2.7.2.686 [id number] [facility] 2022-12-21 10:30:00 2022-12-21 11:12:30 Outpatient R DORON ORTIZ OGECHUKWU [facility] [id number] [facility] 2022-12-21 10:30:00 2022-12-21 11:12:30 Office Visit Doron Ortiz [facility] 1.2.840.114 350.1.13.10 4.2.7.2.686 [id number] [facility] 2022-12-21 00:00:00 2022-12-21 00:00:00 Telephone [facility] 1.2.840.114 350.1.13.10 4.2.7.2.686 [id number] [facility] 2022-11-24 10:48:22 2022-11-24 23:59:00 Outpatient R JERRY IBARRA [facility] [id number] [facility] 2022-11-24 10:48:22 2022-11-24 23:59:00 Hospital Encounter Jerry Ibarra [facility] 1.2.840.114 350.1.13.10 4.2.7.2.686 [id number] [facility] 2022-11-11 16:30:00 2022-11-11 17:02:18 Outpatient R JERRY IBARRA [facility] [id number] [facility] 2022-11-11 16:30:00 2022-11-11 17:02:18 Office Visit Jerry [facility]bar[facility] 1.2.840.114 350.1.13.10 4.2.7.2.686 [id number] [facility] 2022-10-21 09:00:00 2022-10-21 09:30:00 Office Visit Diana, Doron [facility] 1.2.840.114 350.1.13.10 4.2.7.2.686 [id number] [facility] 2022-10-21 09:00:00 2022-10-21 09:00:00 Outpatient R DORON ORTIZ OGECHUKWU [facility] [id number] [facility] 2022-10-16 11:24:00 2022-10-16 15:40:00 Emergency Aysha Alonso [facility] 1.840.114 350.1.13.10 4.2.7.2.686 [id number] [facility] 2022-10-16 10:40:00 2022-10-16 12:12:17 Outpatient R TRACEY CEDENO [facility] [id number] [facility] 2022-10-16 10:40:00 2022-10-16 12:12:17 Outpatient R TRACEY CEDENO [facility] [id number] [facility] 2022-10-16 10:40:00 2022-10-16 11:00:00 Urgent Care Tracey Cedeno, Attending [facility] 1.840.114 350.1.13.10 4.2.7.2.686 [id number] [facility] 2022-09-07 12:00:00 2022-09-07 12:59:31 [facility] [id number] [facility] 2022-09-07 12:00:00 2022-09-07 12:59:31 Office Visit Doron Ortiz [facility] 1.840.114 350.1.13.10 4.2.7.2.686 [id number] [facility] 2022-09-07 00:00:00 2022-09-07 00:00:00 Orders Only Doctor Unassigned, [place] [facility] 1.840.114 350.1.13.10 4.2.7.2.686 [id number] [facility] 2022-07-22 09:30:00 2022-07-22 09:30:00 Outpatient R JERRY IBARRA [facility] [id number] [facility] 2022-07-22 09:30:00 2022-07-22 09:30:00 Outpatient R STACEY JERRY [facility] [id number] [facility] 2022-07-20 10:30:00 2022-07-20 10:51:01 Outpatient R DORON ORTIZ OGECHUKWU [facility] [id number] [facility] 2022-07-20 10:30:00 2022-07-20 10:51:01 Office Visit Doron Ortiz [facility] 1.2.840.114 350.1.13.10 4.2.7.2.686 [id number] [facility] 2022-07-20 09:30:00 2022-07-20 10:14:13 Office Visit Doron Ortiz [facility] 1.2.840.114 350.1.13.10 4.2.7.2.686 [id number] [facility] 2022-07-04 12:13:54 2022-07-04 23:59:00 Outpatient R UNKNOWN, ATTENDING [facility] [id number] [facility] 2022-07-04 12:13:54 2022-07-04 23:59:00 Hospital Encounter Unknown, Attending [facility] 1.2.840.114 350.1.13.10 4.2.7.2.686 [id number] [facility] 2022-06-29 00:00:00 2022-06-29 00:00:00 Outpatient R CASSIA PARKER [facility] [id number] [facility] 2022-04-22 00:00:00 2022-04-22 00:00:00 Telephone Tennille Garcia [facility] 1.2.840.114 350.1.13.10 4.2.7.2.686 [id number] [facility] 2022-04-22 00:00:00 2022-04-22 00:00:00 Patient Secure Msg Doctor Unassigned, [place] [facility] 1.2.840.114 350.1.13.10 4.2.7.2.686 [id number] [facility] 2022-04-21 10:30:00 2022-04-21 12:29:43 Outpatient R KATIE CORTEZ [facility] [id number] [facility] 2022-04-21 10:30:00 2022-04-21 10:45:00 Office Visit Katie Cortez [facility] 1..840.114 350.1.13.10 4.2.7.2.686 [id number] [facility] 2022-04-21 09:00:00 2022-04-21 09:00:00 Outpatient R MARITZA BEAR [facility] [id number] [facility] 2022-04-21 09:00:00 2022-04-21 09:00:00 Outpatient R MARITZA BEAR [facility] [id number] [facility] 2022-04-20 14:30:00 2022-04-20 15:33:13 [facility] 1..840.114 350.1.13.10 4.2.7.2.686 [id number] [facility] 2022-04-20 14:30:00 2022-04-20 15:33:13 Outpatient R DORON ORTIZ OGECHUKWU [facility] [id number] [facility] 2022-04-15 09:37:22 2022-04-15 23:59:00 Outpatient R TENNILLE GARCIA [facility] [id number] [facility] 2022-04-15 12:20:00 2022-04-15 12:40:00 Urgent Care Cliff Mason Ania Fish, Attending [facility] 1..840.114 350.1.13.10 4.2.7.2.686 [id number] [facility] 2022-03-16 10:00:00 2022-03-16 10:00:[address] [facility] [id number] [facility] 2022-03-07 09:15:00 2022-03-07 23:59:00 Hospital Encounter Doron Ortiz [facility] 1..840.114 350.1.13.10 4.2.7.2.686 [id number] [facility] 2022-03-07 08:30:00 2022-03-07 09:03:55 Office Visit Doron Ortiz [facility] 1..840.114 350.1.13.10 4.2.7.2.686 [id number] [facility] 2022-03-07 08:30:00 2022-03-07 09:03:55 Outpatient R DORON ORTIZ OGECHUKWU [facility] [id number] [facility] 2022-03-07 00:00:00 2022-03-07 00:00:00 Orders Only Doctor Unassigned, [place] [facility] 1.840.114 350.1.13.10 4.2.7.2.686 [id number] [facility] 2022-03-02 08:00:00 2022-03-02 08:38:[address] [facility] [id number] [facility] 2022-03-02 08:00:00 2022-03-02 08:38:49 Office Visit JoseTennille [facility] 1.840.114 350.1.13.10 4.2.7.2.686 [id number] [facility] 2022-02-28 08:00:00 2022-02-28 08:00:00 Outpatient R TENNILLE GARCIA [facility] [id number] [facility] 2022-02-23 00:00:00 2022-02-23 00:00:00 Patient Secure Msg Doctor Unassigned, [place] [facility] 1.840.114 350.1.13.10 4.2.7.2.686 [id number] [facility] 2022-02-23 00:00:00 2022-02-23 00:00:00 Transition of Care Vlad Huddleston 1..840.114 350.1.13.10 4.2.7.2.686 [id number] [facility] 2022-02-20 12:32:00 2022-02-22 17:50:00 Inpatient X VENECIA CALLOWAY [facility] [id number] [facility] 2022-02-20 12:32:00 2022-02-22 17:50:00 Hospital Encounter Rene Kay David [facility] 1..840.114 350.1.13.10 4.2.7.2.686 [id number] [facility] 2022-02-20 10:00:00 2022-02-20 12:05:55 Outpatient R TRACEY CEDENO [facility] [id number] [facility] 2022-02-20 10:00:00 2022-02-20 12:05:55 Urgent Care Tracey Cedeno Unknown, Attending [facility] 1..840.114 350.1.13.10 4.2.7.2.686 [id number] [facility] 2022-02-08 10:40:00 2022-02-08 11:27:06 Outpatient R MESERET NOGUEIRA [facility] [id number] [facility] 2022-02-08 10:40:00 2022-02-08 11:00:00 Urgent Care Meseret Nogueira Unknown, Attending [facility] 1.840.114 350.1.13.10 4.2.7.2.686 [id number] [facility] 2021-08-07 10:20:00 2021-08-07 10:53:57 Outpatient R MARIA DOLORES GAXIOLA [facility] [id number] [facility] 2021-08-07 10:20:00 2021-08-07 10:53:57 Urgent Care Amelia Garcia Kimberly [facility] 1..840.114 350.1.13.10 4.2.7.2.686 [id number] [facility] 2021-08-05 20:42:00 2021-08-05 20:56:00 Emergency Kevin Goode [facility] 1..840.114 350.1.13.10 4.2.7.2.686 [id number] [facility] 2021-08-05 19:45:00 2021-08-05 20:06:37 Outpatient R MARIA DOLORES GAXIOLA [facility] [id number] [facility] 2021-08-05 19:45:00 2021-08-05 20:05:00 Nurse Visit Nurse, Zuhair Salcedo [facility] Maria Dolores Gaxiola [facility] 1..840.114 350.1.13.10 4.2.7.2.686 [id number] [facility] 2021-08-05 19:45:00 2021-08-05 19:45:00 Outpatient R MARIA DOLORES GAXIOLA [facility] [id number] [facility] 2021-08-05 19:40:00 2021-08-05 19:40:00 Outpatient R DARRIAN GAXIOLABERLY [facility] [id number] [facility] 2021-08-05 00:00:00 2021-08-05 00:00:00 Orders Only Doctor Unassigned, [place] [facility] 1..840.114 350.1.13.10 4.2.7.2.686 [id number] [facility] 2021-07-27 08:30:00 2021-07-27 08:30:00 Outpatient R MINESH STANFORD [facility] [id number] [facility] 2021-07-27 08:30:00 2021-07-27 08:30:00 [facility] [id number] [facility] 2021-07-26 12:00:00 2021-07-26 12:30:00 Office Visit Keith [facility] ELVIRA IWLKINS[facility] 1..840.114 350.1.13.10 4.2.7.2.686 [id number] [facility] 2021-07-26 12:00:00 2021-07-26 12:00:00 Outpatient R KEITH [facility] [id number] [facility] 2021-07-26 12:00:00 2021-07-26 12:00:00 Outpatient R KEITH [facility] [id number] [facility] 2021-04-20 08:00:00 2021-04-20 09:08:36 Outpatient R MARITZA BEAR [facility] [id number] [facility] 2021-04-20 08:00:00 2021-04-20 09:08:36 Office Visit Maritza Bear [facility] 1.2.840.114 350.1.13.10 4.2.7.2.686 [id number] [facility] 2021-04-20 08:00:00 2021-04-20 09:08:36 Outpatient R MARITZA BEAR [facility] [id number] [facility] 2021-02-23 00:00:00 2021-02-23 00:00:00 Case Management Zulma Bearchauncey Lou [facility] 1..840.114 350.1.13.10 4.2.7.2.686 [id number] [facility] 2021-02-09 13:20:00 2021-02-09 13:20:00 Outpatient MINESH DE LA FUENTE [facility] [id number] [facility] 2021-02-09 13:11:36 2021-02-09 13:11:46 Imm/Inj Visit Nurse, Pepito Pob Immunizatio Minesh Steward [facility] 1..840.114 350.1.13.10 4.2.7.2.686 [id number] [facility] 2021-01-28 08:11:17 2021-01-28 08:26:17 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, Adc Lab Maritza Bear [facility] Building 1..840.114 350.1.13.10 4.2.7.2.686 [id number] [facility] 2021-01-28 08:00:00 2021-01-28 08:00:00 [facility] [id number] [facility] 2020-11-24 16:00:00 2020-11-24 16:00:00 Outpatient KATIE REARDON [facility] [id number] [facility] 2020-08-20 10:20:00 2020-08-20 10:20:00 Outpatient R [facility] [id number] [facility] 2020-06-30 17:40:00 2020-06-30 17:40:00 Outpatient LIAM ZUNIGA [facility] [id number] [facility] 2020-06-05 00:00:00 2020-06-05 00:00:00 Outpatient JERRY LEY [facility] [id number] [facility] 2020-05-29 10:30:00 2020-05-29 10:30:00 Outpatient JERRY LEY [facility] [id number] [facility] 2020-05-19 09:50:00 2020-05-19 09:50:00 Outpatient LILLI POOLE [facility] [id number] [facility] 2020-04-21 08:40:00 2020-04-21 08:40:00 Outpatient LILLI POOLE [facility] [id number] [facility] 2020-04-20 08:00:00 2020-04-20 08:00:00 Outpatient MARITZA WELLS [facility] [id number] [facility] 2020-01-17 09:15:00 2020-01-17 09:15:00 Outpatient MARITZA WELLS [facility] [id number] [facility] 2019-06-07 00:00:00 2019-06-07 00:00:00 Orders Only Doctor Unassigned, [place] [facility] 1.2.840.114 350.1.13.10 4.2.7.2.686 [id number] [facility] 2019-06-07 00:00:00 2019-06-07 00:00:00 Telephone Jerry Ibarra [facility] 1.2.840.114 350.1.13.10 4.2.7.2.686 [id number] [facility] 2019-05-30 07:58:23 2019-05-30 23:59:00 Outpatient R JERRY IBARRA [facility] [id number] [facility] 2019-05-30 07:58:00 2019-05-30 23:59:00 Hospital Encounter Jerry Ibarra [facility] 1.2.840.114 350.1.13.10 4.2.7.2.686 [id number] [facility] 2019-05-24 09:00:00 2019-05-24 10:12:14 Outpatient R JERRY IBARRA [facility] [id number] [facility] 2019-05-24 08:51:18 2019-05-24 10:12:14 Office Visit Jerry Ibarra [facility] 1.2.840.114 350.1.13.10 4.2.7.2.686 [id number] [facility] 2019-04-18 07:00:00 2019-04-18 08:01:09 Outpatient MARITZA WELLS [facility] [id number] [facility] 2017-07-04 03:30:00 2017-07-04 03:30:00 Outpatient Raju_P MMG MMG [id number] [facility] Results Test Description Test Time Test Comments [...] are seen. Healed leftinferior pubic ramus fracture. [facility] DEXA AXIAL (HIP AND SPINE) 2024-02-15 16:27:20 [...] for each 1.5 SD below the mean. [facility] XR HIPS 2 VW LEFT 2024-01-09 04:48:05 XR HIPS 2 VW LEFT HISTORY: ?Postop Total Hip ? COMPARISON: 12/19/2023 FINDINGS: Intact arthroplasty. Alignment is near-anatomic. No acute fracture orloosening. Soft tissue edema and emphysema, commensurate with postoperativestat e. [facility] [place] [id number] 13:06:17* Test Item Value Reference Range Interpretation [...] 32.9 g/dL 31.6-35.1 RDW-SD (test code = 38202-7) 43.2 fL 39.0-49.9 RDW-CV (test code = 788-0) 13.1 % 12.0-15.5 PLT (test code = 777-3) 286 166-358 MPV (test code = 11221-5) 9.4 fL 9.5-12.9 L NRBC/100 WBC (test code = 8984796435) 0.0 0.0-10.0 NRBC x10^3 (test code = 6616232473) See_Comment [Automated messa ge] The system which generated this result transmitted reference range: 10*3/?L. The reference range was not used to interpret this result as normal/abnormal. GRAN MAT (NEUT) % (test code = 770-8) 71.3 % IMM GRAN % (test code = 0692801471) 0.30 % LYMPH % (test code = 736-9) 14.4 % MONO % (test code = 5905-5) 11.0 % EOS % (test code = 713-8) 2.3 % BASO % (test code = 706-2) 0.7 % GRAN MAT x10^3(ANC) (test code = 8930027682) 4.98 10*3/uL 1.88-7.09 IMM GRAN x10^3 (test code = 7926429978) 0.00-0.06 LYMPH x10^3 (test code = 731-0) 1.01 10*3/uL 1.32-3.29 L MONO x10^3 (test code = 742-7) 0.77 10*3/uL 0.33-0.92 EOS x10^3 (test code = 711-2) 0.16 10*3/uL 0.03-0.39 BASO x10^3 (test code = 704-7) 0.05 10*3/uL 0.01-0.07 Lab Interpretation (test code = 17836-1) Abnormal [facility] - This is a pre-surgical type and screen. ONCE [id number] 13:04:00* Test Item Value Reference Range Interpretation Comme nts ABO & RH (test code = 20) O POSITIVE IAT (test code = 1185) Negative [facility] - This is a pre-surgical type and screen. ONCE [id number] 13:04:00* Test Item Value Reference Range Interpretation Comme nts ABO & RH (test code = 20) O POSITIVE IAT (test code = 1185) Negative [facility] CenterDSU [id number] 14:43:48Ordered by an unspecified provider.[facility] CenterXR [facility] 3 VW LEFT 2023-12-21 22:10:11EXAM: XR HIPS 3 VW LEFT HISTORY: LT THR COMPARISON: Left hip radiographs, 05/25/2023. FINDINGS: Radiographs of the left hip demonstrate no acute fracture or dislocation.There is progressive severe bilateral hip joint osteoarthrosis, rightgreater than left. Lower lumbar degenerative disc disease. Pubic symphysisdegenerative changes are noted. Osseous demineralization is noted.[facility] CenterFL TIME OR (NON-REPORTABLE)2023-09-18 15:12:04These images do not require a Radiology diagnostic report.[facility] CenterFL TIME OR (NON-REPORTABLE)2023-09-18 15:12:04These images do not require a Radiology diagnostic report.[facility] NON-UTMB [id number] 15:30:49Ordered by an unspecified provider.[facility] CenterXR HIPS 2 VW [id number] 15:23:53XR HIPS 2 VW LEFT and AP pelvis. INDICATION: hip pain ? COMPARISON: 11/24/20 FINDINGS:No acute fracture or dislocation.Advanced degenerative changes of bilateral hip joints with primarily axialmigration of the femoral heads, subchondral sclerosis and osteophytosis.Additional degenerative changes at the bilateral sacroiliac joints andpubic symphysis.[facility] CenterTROPONIN [id number] 19:50:23* Test Item Value Reference Range Interpretation Comme nts TROPONIN I (test code = 6358461538) 0.034 ng/mL <=0.034 MADAY (test code = [...] of biotin. Lab Interpretation (test code = 43534-1) Normal [facility] CenterTROP[facility]IN [id number] 17:30:40* Test Item Value Reference Range Interpretation Comme nts TROPONIN I (test code = 0261507639) 0.035 ng/mL <=0.034 H MADAY (test code [...] of biotin. Lab Interpretation (test code = 64653-7) Abnormal [facility] CenterN-TERMINAL [id number] 17:27:39* Test Item Value Reference Range Interpretation Comme nts NT-proBNP (test code = 7995987069) 126 pg/mL <=450 MADAY (test code = MADAY) Biotin has been reported to cause a negative bias, interpret results relative to patient's use of biotin. Lab Interpretation (test code = 60485-5) Normal [facility] CenterACTIVATED PARTIAL THRMPLAS [id number] 17:26:58* Test Item Value Reference Range Interpretation Comme nts APTT Patient (test code = 3173-2) 28 See_Comment [Automated message] The system which generated this result transmitted reference range: 23 - 38 Seconds. The reference range was not used to interpret this result as normal/abnormal. MADAY (test code = MADAY) The [facility] patient population mean normal value for aPTT is 30 seconds. Lab Interpretation (test code = 80495-3) Normal [facility] CenterPROTHROMBIN TIME / [id number] 17:24:57* Test Item Value Reference Range Interpretation Comme nts PROTIME PATIENT (test code = 5964-2) 12.8 See_Comment [Automated [employer] ge] The system which generated this result transmitted reference range: 12.0 - 14.7 Seconds. The reference range was not used to interpret this result as normal/abnormal. INR (test code = 6301-6) 1.0 Normal INR <1.1; Warfarin Therapeutic range 2.0 to 3.0 or 2.5 to 3.5, depending upon the indications. Lab Interpretation (test code = 44957-5) Normal [facility] CenterMAGNESIUM2023-07-02 17:19:19* Test Item Value Reference Range Interpretation Comme nts MAGNESIUM (test code = 2795759642) 2.0 mg/dL 1.7-2.4 Lab Interpretation (test cod e = 55031-0) Normal [facility] CenterCOMP. METABOLIC PANEL (94592)2022-10-16 17:18:59* Test Item Value Reference Range Interpretation Comme nts NA (test code = 8175251447) 138 mmol/L 135-145 K (test code = 0283432271) 4.1 mmol/L 3.5-5.0 CL (test code = 9895497389) 102 mmol/L 98-108 CO2 TOTAL (test code = 0757802357) 27 mmol/L 23-31 AGAP (test code = 1668541034) 9 2-16 BUN (test code = 3071011585) 23 mg/dL 7-23 GLUCOSE (test code = 2246707366) 159 mg/dL 70-110 H CREATININE (test code = 8712939132) 0.65 mg/dL 0.50-1.04 TOTAL BILI (test code = 5965841331) 0.6 mg/dL 0.1-1.1 CALCIUM (test code = 4213015287) 9.5 mg/dL 8.6-10.6 T PROTEIN (test code = 1065910544) 6.8 g/dL 6.3-8.2 ALBUMIN (test code = 9660287232) 4.2 g/dL 3.5-5.0 ALK PHOS (test code = 4946403046) 83 U/L 34-122 ALTv (test code = 1742-6) 28 U/L 5-35 AST(SGOT) (test code = 8334186194) 33 U/L 13-40 eGFR (test code = 2961697830) 87.0 mL/min/1.73m2 MADAY (test code = MADAY) [...] imaging tests). Lab Interpretation (test code = 96020-3) Abnormal [facility] WITH [id number] 17:06:53* Test Item Value Reference Range Interpretation Comme nts WBC (test code = 6690-2) 7.26 See_Comment [Automated [employer]] The system which generated this result transmitted [...] 33.9 g/dL 31.6-35.1 RDW-SD (test code = 12757-6) 49.8 fL 39.0-49.9 RDW-CV (test code = 788-0) 14.9 % 12.0-15.5 PLT (test code = 777-3) 240 See_Comment [Automated messa ge] The system which generated this result transmitted reference range: 166 - 358 10*3/?L. The reference range was not used to interpret this result as normal/abnormal. MPV (test code = 31898-7) 10.2 fL 9.5-12.9 NRBC/100 WBC (test code = 4266992846) 0.0 See_Comment [Automated [employer] ssage] The system which generated this result transmitted reference range: 0.0 - 10.0 /100 WBCs. The reference range was not used to interpret this result as normal/abnormal. NRBC x10^3 (test code = 2599966823) See_Comment [Automated messa ge] The system which generated this result transmitted reference range: 10*3/?L. The reference range was not used to interpret this result as normal/abnormal. GRAN MAT (NEUT) % (test code = 770-8) 74.2 % IMM GRAN % (test code = 8818115097) 0.10 % LYMPH % (test code = 736-9) 15.6 % MONO % (test code = 5905-5) 7.6 % EOS % (test code = 713-8) 1.8 % BASO % (test code = 706-2) 0.7 % GRAN MAT x10^3(ANC) (test code = 0316826393) 5.39 10*3/uL 1.88-7.09 IMM GRAN x10^3 (test code = 3419432970) 0.00-0.06 LYMPH x10^3 (test code = 731-0) 1.13 10*3/uL 1.32-3.29 L MONO x10^3 (test code = 742-7) 0.55 10*3/uL 0.33-0.92 EOS x10^3 (test code = 711-2) 0.13 10*3/uL 0.03-0.39 BASO x10^3 (test code = 704-7) 0.05 10*3/uL 0.01-0.07 Lab Interpretation (test code = 78983-9) Abnormal [facility] CenterTransthoracic echo (TTE)2022-02-21 22:50:22* Test Item Value Reference Range Interpretation Comme nts Height (test code = 5915865047) in Weight (test code = 8221999238) lbs Systolic BP (test code = 1588204469) mmHg Diastolic BP (test code = 2999431884) mmHg Heart Rate (test code = 3163705283) bpm BSA (test code = 8128826662) 1.37 m2 Ao root diam (test code = 4311428169) 3.50 cm Aortic root (test code = 9796363360) 3.5 cm Ao root annulus (test code = 8537133534) 3.5 cm LVOT diameter (test code = 8534002954) 1.86 cm LVOT area (test code = 2282891462) 2.70 cm2 LVIDD (test code = 6141637869) 4.00 cm Left Ventricular End Diastolic Volume by Teichholz Method (test code = 0147601) 71.7 mL IVS (test code = 9231465746) 0.98 cm Interventricular Septum Diastolic Thickness by 2D (test code = 6326667) 0.98 cm LVPWD (test code = 0055005409) 0.98 cm PW (test code = 2018324135) 0.98 cm 0.6-1.1 EF(Teich) (test code = 9075514064) 61.40 % LVIDS (test code = 7877622438) 2.70 cm Left Ventricular End Systolic Volume by Teichholz Method (test code = 0474989) 27.7 mL FS (test code = 5834097834) 33 % EF - 2D (test code = 24407264) 61.40 % LA size (test code = 3467674380) 2.06 cm TR Peak Frank (test code = 8879548792) 246.0 cm/s Triscuspid Valve Regurgitation Peak Gradient (test code = 8760109232) mmHg LAV(MOD-sp4) (test code = 7116288725) 32.80 mL E wave decelartion time (test code = 1219732586) 0.19 s MV stenosis pressure 1/2 time (test code = 6414702838) 58.0 ms MV Peak E Frank (test code = 5999650434) 70.6 cm/s MV Peak A Frank (test code = 3282928467) 53.6 cm/s E/A ratio (test code = 9967658217) ratio MR max PG (test code = 8212166042) 125.60 mm[Hg] MR max frank (test code = 9316274797) 560.00 cm/s Mr max frank (test code = 2142755082) 560.0 m/s MV Prop V (test code = 6637797693) 73.30 cm/s MV E/e' septal (test code = 8315429115) 9.9 cm/s Tapse (test code = 2135003696) 2.10 cm LVOT stroke volume (test code = 7244906883) 46.30 cm3 LVOT peak frank (test code = 4982751896) 91.7 cm/s LVOT mn grad (test code = 0197363998) mmHg AV LVOT peak gradient (test code = 0078785854) mmHg LVOT peak VTI (test code = 7442237421) 17.1 cm LV V1 mean (test code = 2784804081) 65.70 cm/s Aortic valve mean velocity (test code = 3203045817) 112.3 cm/s Ao peak frank (test code = 4547787232) 159.2 cm/s Ao VTI (test code = 6465882040) 27.3 cm AV area by cont VTI (test code = 3118601196) 1.7 cm2 AV area peak frank (test code = 3581364986) 1.6 cm2 Ao max PG (test code = 5755191853) 10.10 mm[Hg] AV peak gradient (test code = 3521599071) mmHg AV valve area (test code = 7119699222) 1.70 cm2 AV mean gradient (test code = 9827550870) mmHg AV regurgitation pressure 1/2 time (test code = 5528422804) 640.5 ms AI dec slope (test code = 9241831007) 201.20 cm/s2 AI max frank (test code = 7441500010) 439.90 cm/s AI max PG (test code = 9787750031) 77.40 mm[Hg] Radiology Study observation (narrative) (test code = 83465-9) MADAY (test code = MADAY) ?Left?Ventricle: Left [...] 2D, color flow Doppler and spectral Doppler. [facility] CenterGLYCOSYLATED HEMOGLOBIN (A1C)2022-02-21 02:33:13* Test Item Value Reference Range Interpretation Comme nts HGB A1C (test code = 4548-4) 5.8 % 4.0-5.7 H MADAY (test code = MADAY) Reference RangesNormal: <5.7%Prediabetes: 5.7 - 6.4%Diabetes: > 6.5% Lab Interpretation (test code = 01963-6) [facility]normal [facility]TR[facility] [id number] 19:32:09* Test Item Value Reference Range Interpretation Comments TROPONIN I (test code = 7414207387) 0.057 ng/mL See_Comment H [Automated message] The [...] of biotin. Lab Interpretation (test code = 21734-0) [facility]normal [facility] CenterCOMP[facility]ABOLIC PANEL ([id number])2022-02-20 19:20:46* Test Item Value Reference Range Interpretation Comme nts NA (test code = 6873420648) 138 mmol/L 135-145 K (test code = 2946447410) 4.8 mmol/L 3.5-5.0 CL (test code = 4458687214) 104 mmol/L 98-108 CO2 TOTAL (test code = 4707592287) 28 mmol/L 23-31 AGAP (test code = 8967710203) 2-16 BUN (test code = 3958836110) 23 mg/dL 7-23 GLUCOSE (test code = 6070398170) 65 mg/dL 70-110 L CREATININE (test code = 7850525595) 0.67 mg/dL 0.50-1.04 TOTAL BILI (test code = 8460454916) 0.5 mg/dL 0.1-1.1 CALCIUM (test code = 9951676722) 9.2 mg/dL 8.6-10.6 T PROTEIN (test code = 2483200225) 6.4 g/dL 6.3-8.2 ALBUMIN (test code = 3984581300) 4.1 g/dL 3.5-5.0 ALK PHOS (test code = 0116443811) 67 U/L 34-122 ALTv (test code = 1742-6) 33 U/L 5-35 AST(SGOT) (test code = 2119587706) 45 U/L 13-40 H eGFR (test code = 7979747361) mL/min/1.73m2 MADAY (test code = MADAY) Association [...] imaging tests). Lab Interpretation (test code = 83655-9) [facility]normal [facility]PO[facility]OV[facility]2 [facility]TIGEN (BINAX NOW)2022-02-20 19:18:00* Test Item Value Reference Range Interpretation Comme nts POCT SARS-COV-2 ANTIGEN (radha t code = 41954-3) Positive Not Detected A On board controls acceptable with C Line (test code = 3574) Yes Lab Interpretation (test cod e = 96385-6) [facility]normal [facility] CenterCB WITH [id number] 19:07:24* Test Item Value Reference Range Interpretation Comme nts WBC (test code = 6690-2) See_Comment [Automated [employer] ge] The system which generated this result transmitted reference range: 4.30 - 11.10 10*3/?L. The reference range was not used to interpret this result as normal/abnormal. RBC (test code = 789-8) See_Comment [Automated [employer] ge] The system which generated this result [...] 33.4 g/dL 31.6-35.1 RDW-SD (test code = 74911-9) 45.7 fL 39.0-49.9 RDW-CV (test code = 788-0) 13.4 % 12.0-15.5 PLT (test code = 777-3) See_Comment [Automated Datameera ge] The system which generated this result transmitted reference range: 166 - 358 10*3/?L. The reference range was not used to interpret this result as normal/abnormal. MPV (test code = 97349-8) 10.8 fL 9.5-12.9 NRBC/100 WBC (test code = 5684560171) See_Comment [Automated me ssage] The system which generated this result transmitted reference range: 0.0 - 10.0 /100 WBCs. The reference range was not used to interpret this result as normal/abnormal. NRBC x10^3 (test code = 0914914694) See_Comment [Automated messa ge] The system which generated this result transmitted reference range: 10*3/?L. The reference range was not used to interpret this result as normal/abnormal. GRAN MAT (NEUT) % (test code = 770-8) 61.2 % IMM GRAN % (test code = 9898631123) 0.20 % LYMPH % (test code = 736-9) 18.2 % MONO % (test code = 5905-5) 18.7 % EOS % (test code = 713-8) 1.2 % BASO % (test code = 706-2) 0.5 % GRAN MAT x10^3(ANC) (test code = 7729852747) 3.70 10*3/uL 1.88-7.09 IMM GRAN x10^3 (test code = 2881091783) 0.00-0.06 LYMPH x10^3 (test code = 731-0) 1.10 10*3/uL 1.32-3.29 L MONO x10^3 (test code = 742-7) 1.13 10*3/uL 0.33-0.92 H EOS x10^3 (test code = 711-2) 0.07 10*3/uL 0.03-0.39 BASO x10^3 (test code = 704-7) 0.03 10*3/uL 0.01-0.07 Lab Interpretation (test code = 64326-8) Abnormal [facility] MOLECULAR [id number] 17:51:19* Test Item Value Reference Range Interpretation Comme nts POCT Molecular Strep (test c ode = 74174-3) Negative Negative Lab Interpretation (test cod e = 67026-1) Normal [facility] MOLECULAR [id number] 17:51:19* Test Item Value Reference Range Interpretation Comme nts POCT Molecular Strep (test c ode = 67149-7) Negative Negative Lab Interpretation (test cod e = 47928-1) Normal [facility] MOLECULAR [id number] 17:39:16* Test Item Value Reference Range Interpretation Comme nts POCT Molecular FluA (test co de = 39342-1) Negative Negative POCT Molecular FluB (test co de = 68306-8) Negative Negative Lab Interpretation (test cod e = 85352-5) Normal [facility] MOLECULAR [id number] 17:39:16* Test Item Value Reference Range Interpretation Comme nts POCT Molecular FluA (test co de = 56138-5) Negative Negative POCT Molecular FluB (test co de = 10415-2) Negative Negative Lab Interpretation (test cod e = 74166-8) [facility] 2017-03-01 12:56:51* Test Item Value Reference Range Interpretation Comme nts Consent To Contact For [employer] (test code = 4947) Yes [facility] Consult Notes Date/Time Note Provider Source 2024-01-08 12:28:33 Associated Order(s): CONSULT EPIC APPLICATION COORDINATOR-ADULT CM provided patient with [address] [place] [address] and set up home health with [facility]. Blaise Luna RN, BSN [facility] ADC C D Reactor Operator O [phone] F [phone] [id number] Blaise Luna RN [facility] Notes Date/Time Note Provider Source 2024-05-28 16:15:34 Orders and Demos faxed to [facility] [phone] STERED PHARMACY TECHNICIAN Lisa Carreno RN [facility] 2024-05-28 15:29:30 Please resend physical therapy order providers signature was not on the original one sent to [facility] ISH Nguyenlo [facility] 2024-05-13 15:24:18 Spoke with Nurse, Jacqueline, and relayed information per Dr. Mcdonough. Nursed voiced understanding. STERED PHARMACY TECHNICIAN Andria Vora RN [facility] 2024-05-13 15:23:16 Spoke with Nurse, Jacqueline, and relayed information per Dr. Mcdonough. Nursed voiced understanding. STERED PHARMACY TECHNICIAN Andria Vora RN [facility] 2024-05-13 08:40:36 Jacqueline with [facility] care is calling asking to confirm diagnosis for the pt. ISH Camara [facility] 2024-05-10 12:42:15 I do not see that diagnosis listed [facility] 2024-05-10 11:10:11 Francisca with [facility] was notified of all and verbalized understanding. ISH Cardenas LVN [facility] 2024-05-09 14:26:35 Please review and advise. DICKSON 10/26/23 NOV 05/20/24 ISH Cardenas LVN [facility] 2024-05-09 10:39:50 Nurse Jacqueline, pt's Home Health Nurse calling in to confirm diagnosis for pt. Wanting to confirm if pt has an alzheimer's / dementia diagnosis Please address and advise Callback for Nurse Jacqueline - [phone](home) STERED PHARMACY TECHNICIAN Chucho Moulton [facility] 2024-05-09 10:34:31 We will follow as long as we are not managing IV medications. Best, Dr. Mcdonough STERED PHARMACY TECHNICIAN [facility] 2024-05-09 08:14:59 Please review and advise. DICKSON 10/26/23 NOV 05/20/24 [facility] 2024-05-08 15:29:48 Jacqueline with [facility] care is wanting to know if Dr. Mcdonough will follow patient for home health orders ISH Duvall [facility] 2024-05-02 09:49:42 Called patient, no answer. Left voicemail to return call to schedule an appointment to discuss results. ISH Soliz [facility] 2024-05-01 10:01:28 Pt needing to come in for visit with Stacey to go over results. STERED PHARMACY TECHNICIAN Tracey Puga RN [facility] 2024-03-19 16:10:42 Spoke with Chip, awaiting fax for plan of care. ISH Carreno RN [facility] 2024-03-19 15:51:26 Demian from [facility] was calling regrding plan of care. Please give them a call to let them know when this will be signed STERED PHARMACY TECHNICIAN Sabina Mancera [facility] 2024-03-19 09:29:42 nurse Breanne notified of all and verbalized understanding. No further needs were voiced at this time. ISH Cardenas LVN [facility] 2024-03-18 12:56:15 I will send hydrocortisone cream. This must be done sparingly. Use benefiber (or fiber supplement) and try sitz baths as well. If it worsens, let me know and we can do a referral to the rectal surgery team. Dr. Thiago Hassan [facility] 2024-03-18 10:24:43 nurse Breanne stated that patient has already tried Prep H x1 week without any effectiveness. Please review and advise [facility] 2024-03-13 22:41:20 Let's try preparation H first OTC. Dr. Thiago Hassan [facility] 2024-03-13 13:18:25 Please review and advise. ISH Herbert RN [facility] 2024-03-13 12:26:42 Breanne with [facility] is informing the clinic that patient has external Hemorids that are making the patient uncomfortable. Breanne would like something prescribed for the patient STERED PHARMACY TECHNICIAN John Duvall [facility] 2024-02-20 14:12:54 Received PT re- assessment forms from [facility], forms placed in providers box for review, signature needed. ISH Richardson [facility] 2024-02-16 14:37:15 Post ED Visit Outreach Call 02/16/2024 Ghazala Orozco [id number] Ghazala Orozco is a 83 year old /White female was admitted on 02/15/2024 to [facility] She was discharged on 01/08/24 [...] (urgent care, PCP appointment). Establish care with [facility] PCP (if no PCP) Confirm follow up visit with established PCP. 4) Consult Ambulatory Water Treatment Technician as needed. 5) Communicate with physician's office via phone or in basket message as needed. Erasto Trent RN [facility] 2024-02-14 15:45:49 Routing to [facility] to schedule appointment. Meron Last 02/14/2024 3:46 PM [facility] 2024-02-14 14:40:50 Please have her come in ORT-ORTHOPAEDIC SURGERY STAFF [facility] 2024-02-14 12:26:45 Gregoria with [facility] is calling to inform that the patient had a fall 02/07/2024 Pt was seen at [facility] on left hip. Patient is having pain and she is taking aleve 2X a day. Gregoria stated the patients pain is at a 7. She is wanting to know if its okay to continue to take Aleve. Gregoria with wanting to know if the patient needs to come and be seen. Please advise. Maritza Santana [facility] 2024-01-31 11:10:49 Gregoria with [facility] [phone] is with patient that has had hip replacement surgery and she has ran out of her hydrocodone pain medicine and is wanting to know if patient can take Tylenol 500mg until her medicine is refilled? Karin Gomez [facility] 2024-01-09 16:13:51 Spoke with patients daughter, Alex, Patient post day 1 after hip replacement, she stated that the medication HYDROcodone-acetaminophen 5-325 mg tablet [facility]. When she went to pick it up she was told that they did not have the medication in stock. Daughter [facility] [place] they too did not have any stock. Daughter also called [facility] in [place], also none in stock. She then called [facility] in [place] they had stock available. She is asking if we can send the RX to [facility]. Due to this being a controlled substance an MD would have to send it. Dr Rosario has already left for the day. Attempted to contact via Cell phone, message left. Alex was notified of the above information and informed that it could be tomorrow before new Rx is called in. She voiced understanding. Andria Vora RN [facility] 2024-01-09 11:57:09 Pt daughter is requesting RX to be sent to [facility] in [place]. DOS:01/08/2024 -Total Knee Replacement HYDROcodone-acetaminophen 5-325 mg tablet . Maritza Santana [facility] 2024-01-08 10:25:56 Summary: Family Surgical Update Patient's daughter, called on cell phone to provide surgery status update. No questions at this time. Tracey Gupta RN [facility] 2024-01-08 09:51:35 BRIEF OPERATIVE NOTE Date of Surgery: 01/08/2024 Surgeons and Role: * Caitlyn Rosario MD - Primary * Meron Herzog MD - Resident - Assisting Pre-Op Diagnosis: Pre-op testing [Z01.818] Primary osteoarthritis of left hip [M16.12] Post-Op Diagnosis Codes: * Pre-op testing [Z01.818] * Primary osteoarthritis of left hip [M16.12] Procedures: Procedure(s) (LRB): TOTAL HIP ARTHROPLASTY (Left) CPT: UTMBCOSERGEI, Any Complications Encounters: 0 Estimated Blood Loss: 100 Specimens Removed: * No specimens in log * Implant Name Type Inv. Item Serial No. [employer] Lot No. LRB No. Used Action SCREW BONE TRLG 30MM SLF TAP 6.5MM ACTB CORTCL STERIL #[id number] - SN/A SCREW SCREW BONE TRLG 30MM SLF TAP 6.5MM ACTB CORTCL STERIL #[id number] N/A [employer] [id number] Left 1 Implanted SHELL ACTB G7 PPS 54MM LIMIT HOLE CLR CD F HMSPHR OFFSET HIP #[id number] - SN/A Joint Prosthesis SHELL ACTB G7 PPS 54MM LIMIT HOLE CLR CD F HMSPHR OFFSET HIP #[id number] N/A [employer] [id number] Left 1 Implanted SCREW BONE TRLG 20MM SLF TAP 6.5MM HIP ACTB STERIL #[id number] - SN/A SCREW SCREW BONE TRLG 20MM SLF TAP 6.5MM HIP ACTB STERIL #[id number] N/A [employer] [id number] Left 1 Implanted LINER ACTB 40MM F LNGVT G7 STERIL LF LUMEN HIP #[id number] - SN/A Joint Prosthesis LINER ACTB 40MM F LNGVT G7 STERIL LF LUMEN HIP #[id number] N/A [employer] [id number] Left 1 Implanted STEM FMRL 107.5MM 11MM 133D STD OFFSET TAP PRS FIT TI PPS #[id number] - SN/A Joint Prosthesis STEM FMRL 107.5MM 11MM 133D STD OFFSET TAP PRS FIT TI PPS #[id number] N/A [employer] [id number] Left 1 Implanted HEAD FMRL 40MM -3MM OFFSET HIP ACTB COCR G7 TYPE 1 #[id number] - SN/A HEAD FMRL 40MM -3MM OFFSET HIP ACTB COCR G7 TYPE 1 #[id number] N/A [employer] [id number] Left 1 Implanted Patient's Condition: good Findings: above Any other important information: none Please see dictated operative report for additional detail. [facility] 2024-01-05 14:21:09 Patients daughter has been contacted by the surgical center with the time of the arrival of the surgery. [facility] Janessa Luna [facility] 2024-01-05 12:12:11 Ghazala Orozco is a 83 year old female Calling to se what time she needs to arrive by for surgery on 01/07. Leave VM if Pt doesn't answer Kriss Rider [facility] 2024-01-02 09:15:00 Images from the original note were not included. Venipuncture collection performed by clean technique on the left anticubitus. Total of 1 attempts were made. Slight pressure and a bandage/dressing were applied to the site(s). The patient experienced no complications. The following specimens were processed according to instructions and sent to [facility] laboratories per lab order on 12/18/26: LT BLUE SST 1 RED LAV 2 PPT DK GREEN (LiHep) DK GREEN (SodH) JOHNSON DK BLUE (K2) DK BLUE (S) ACD Blood Culture NIPT/NTD [facility] 2024-01-02 09:15:00 Images from the original note were not included. Patient has been identified by and name and was provided with cup, antiseptic towelette, and clean catch instructions. 1 urine specimen(s) sent. Unpreserved 1 Urine Culture Aptima tube Other urine Ofe Sahu [facility] 2024-01-01 14:01:28 Images from the original note were not included. Your procedure is at [facility] on 01/08/24. The address is [address] [place] [address], [address]. [facility] nursing staff will call you [...] voiced no further questions at this time. [facility] 2023-09-18 10:01:00 BRIEF OPERATIVE NOTE Date of Surgery: 09/18/2023 Surgeons and Role: * Caitlyn Rosario MD - Primary Pre-Op Diagnosis: Pre-op testing [Z01.818] Primary osteoarthritis of left hip [M16.12] Post-Op Diagnosis Codes: * Pre-op testing [Z01.818] * Primary osteoarthritis of left hip [M16.12] Procedures: Procedure(s) (LRB): MAJOR JOINT INJECTION (Left) INJECTION THERAPEUTIC AGENT LOWER EXTREMITY (Left) CPT: 72733, 65239, Any Complications Encounters: 0 Estimated Blood Loss: 0 Specimens Removed: * No specimens in log * * No implants in log * Patient's Condition: good Findings: above Any other important information: none Please see dictated operative report for additional detail. ORT-ORTHOPAEDIC SURGERY STAFF [facility] 2023-09-12 12:29:57 Images from the original note were not included. Your procedure is at [facility] on 09/18/23. The address is [address] [place] [address], [facility], [address]. [facility] nursing staff will call you [...] questions at this time. Shelby Roberts RN [facility] 2023-09-12 12:15:00 Images from the original note were not included. Venipuncture collection performed by clean technique on the left anticubitus. Total of 2 attempts were made. Slight pressure and a bandage/dressing were applied to the site(s). The patient experienced no complications. The following specimens were processed according to instructions and sent to [facility] laboratories per lab order on today: LT BLUE SST RED LAV 2 PPT DK GREEN (LiHep) DK GREEN (SodH) JOHNSON DK BLUE (K2) DK BLUE (S) ACD Blood Culture NIPT/NTD Patient has been identified by and name and was provided with cup, antiseptic towelette, and clean catch instructions. 2 urine specimen(s) sent. Unpreserved 2 Urine Culture Aptima tube Other urine [facility] 2023-05-31 09:45:00 Images from the original note were not included. Venipuncture collection performed by clean technique on the right anticubitus. Total of 1 attempts were made. Slight pressure and a bandage/dressing were applied to the site(s). The patient experienced no complications. The following specimens were processed according to instructions and sent to [facility] laboratories per lab order on 05/31/2023: LT BLUE SST 1 RED LAV 1 PPT DK GREEN (LiHep) DK GREEN (SodH) JOHNSON DK BLUE (K2) DK BLUE (S) ACD Blood Culture NIPT/NTD STERED PHARMACY TECHNICIAN [facility] 2023-05-30 10:04:43 Called patient but no answer so LVM to call back or send a [employer] message. Meron Last 05/30/2023 10:05 AM STERED PHARMACY TECHNICIAN Meron Last [facility] 2023-05-29 10:34:39 Patient want to discuss pre op has questions about test that she needs. STERED PHARMACY TECHNICIAN Chrystal Do [facility] 2023-05-29 09:50:02 Pre op orders.Meron Last 05/29/2023 9:53 AM STERED PHARMACY TECHNICIAN [facility] 2023-05-23 11:46:59 Form signed, faxed and confirmation received. STERED PHARMACY TECHNICIAN Tracey Tobin MA [facility] 2023-05-23 11:14:21 Last clinical notes faxed and confirmation received. ISH Tobin MA [facility] 2023-05-23 10:56:04 Ghazala Orozco is a 83 year old female and Marco with [facility] is calling needing the last 4 clinical notes for the pts HIPAA compliant form that was sent over previously. ISH Camara [facility] 2023-05-22 16:21:51 Referral has been placed to orthopedic surgery. [facility] 2023-05-22 16:11:53 Pt has an appt to see Dr. Rosario on 05/25. Pt is needing referral and auth because of the insurance ISH Lama [facility] 2023-05-22 13:33:02 Form placed in provider folder for review. ISH Tobin MA [facility] 2023-05-22 12:24:26 Images from the original note were not included. ISH Vaz [facility] 2022-12-27 09:59:28 Formatting of this n ote might be different from the original. Spoke with patient and informed of lab results. Patient is [facility] since [facility] in [place] no longer take her insurance. Patient had no further question. Medication will be sent to pharmacy. [facility] 2022-12-26 16:54:32 Formatting of this n ote might be different from the original. Attempted to reach pt at [phone], no answer and no voicemail available. Amaya Salas RN [facility] 2022-12-23 16:23:11 Formatting of this n ote might be different from the original. Pt calling wanting a nurse to call her back regarding her lab results. Kriss Rider [facility] 2022-12-23 14:06:34 Formatting of this n ote might be different from the original. Patient called asking to speak to nurse regarding her test result. Please advise Alex Potts [facility] 2022-12-21 11:15:00 Formatting of this n ote is different from the original. Images from the original note were not included. Venipuncture collection performed by clean technique on the left anticubitus. Total of 1 attempts were made. Slight pressure and a bandage/dressing were applied to the site(s). The patient experienced no complications. The following specimens were processed according to instructions and sent to [facility] laboratories per lab order on 12/21/2022 : LT BLUE SST 3 RED LAV 2 PPT DK GREEN (LiHep) DK GREEN (SodH) JOHNSON DK BLUE (K2) DK BLUE (S) ACD Blood Culture NIPT/NTD [facility]
[2024-06-02] MEDS ORDERED: DIPHENHYDRAMINE 50 MG/ML VIAL ONE (11:02)
[2024-06-02] MEDS ORDERED: METOCLOPRAMIDE 10 MG/2mL INJ ONE (11:02)
[2024-06-02] MEDS ORDERED: NA CHLORIDE 0.9% 500 ML ONE (11:03)
[2024-06-02 11:07] LABS: Absolute Eosinophils 0.1 K/uL (0-0.5); Absolute Lymphocytes (CBC) 0.9 K/uL (0.7-4.9); Absolute Monocytes 0.9 K/uL (0.1-1.3); Absolute Neutrophil 8.5 K/uL (1.8-8.0); Basophils % 0.4 % (0-1.3); Eosinophils % 1.1 % (0-4.4); Hematocrit 42.6 % (36.0-45.0); Hemoglobin 14.3 g/dL (12.0-15.0); Lymphocytes % 8.7 % (15.3-44.8); MCH 29.3 pg (27.0-35.0); MCHC 33.6 g/dL (32.0-36.0); MCV 87.1 fL (80-100); MPV 7.8 fL (7.6-11.3); Monocytes % 8.9 % (3.3-12.3); Neutrophils % 80.9 % (41.7-73.7); Platelets 277 thou/uL (152-406); RBC Red Blood Cell Count 4.89 M/uL (3.86-4.86); Red Cell Distribution Width 15.2 % (12.1-15.2)
[2024-06-02 11:25] LABS: Troponin High Sensitivity 27.9 pg/mL (<58.9)
[2024-06-02] MEDS ORDERED: DIAZEPAM 10 MG/2 ML INJ SYRINGE ONE (11:45)
--- NOTE | 2024-06-02 12:15 | RAD REPORT ---
EXAM: CT brain without contrast HISTORY: Dizziness COMPARISON: May 29, 2024 TECHNIQUE: Multiple contiguous axial images were obtained and a CT of the brain without contrast.. Sagittal and coronal reconstruction performed. Automated exposure control, adjustment of the mA and/or kV according to patient size, and/or iterative reconstruction. Unless otherwise specified, incidental f indings do not require dedicated imaging follow-up FINDINGS: An intracranial bleed is not seen Ventricles are normal caliber No extra-axial fluid collection noted Moderate low-density within periventricular, deep and subcortical white matter likely secondary to sm all vessel No fluid within the visualized sinuses or mastoids noted. IMPRESSION: No acute intracranial abnormality noted. If the patient continues to have symptoms to suggest an acute intracranial abnormality then MRI of th e brain would be recommended.
--- NOTE | 2024-06-02 12:34 | EDPHYS ---
Physician Documentation [facility] Name: Ghazala Orozco Age: 84 yrs Sex: Female : 1940 Arrival Date: 06/02/2024 Time: 10:15 Bed 4 Private MD: ED Physician Martinez Taylor HPI: 06/02 10:44 This 84 yrs old Female presents to ER via Unassigned with complaints of ec2 Dizziness. 10:44 Patient arrives today for evaluation of dizziness. Reports that when she goes to stand ec2 up she feels lightheaded. Patient reports no chest pain, no shortness of breath, no abdominal pain, no diarrhea., Does complain of some nausea. States that she has previously been diagnosed with vertigo, previously has taken meclizine.. Historical: - Allergies: 10:48 Codeine; bp 10:48 NSAIDS; bp 10:48 tramadol; bp - PSHx: 10:48 hysterectomy; Left hip replacement; bp - Immunization history:: Adult Immunizations up to date. - Infectious Disease History:: Denies. - Social history:: Smoking status: Patient denies any tobacco usage or history of. ROS: 10:45 Constitutional: as per hpi ec2 Exam: 10:45 Constitutional: GEN: NAD Head: atraumatic Eyes: EOMI Ears: External ears are ec2 normal. CV: regular rate LUNGS: no respiratory distress ABD: non-distended SKIN: no evidence of rashes MSK: no evidence of trauma. Neuro: Cranial nerves II through XII intact, strength intact upper extremities, no pronator drift appreciated, normal [id number]. Vital Signs: 10:47 BP 132 / 94; Pulse 62; Resp 16; Temp 98; Pulse Ox 96% ; bp 11:49 BP 113 / 79; Pulse 85; Resp 16; Pulse Ox 96% ; bp 12:47 BP 135 / 80; Pulse 88; Resp 15; Pulse Ox 94% ; bp MDM: 10:32 Medical Screening Exam initiated ec2 10:45 Data reviewed: vital signs, nurses notes. ED course: Patient arrives today for ec2 lightheadedness. Examination is revealing for neuro intact individual is otherwise in no acute distress. Will obtain lab work, EKG and give the patient medications for her symptoms. Differential includes arrhythmia, electrolyte disturbances, anemia. Initial etc. processes such as stroke however patient without neurologic deficit and descriptors of lightheadedness does not seem to correspond with strokelike symptoms. 10:55 ED course: EKG independently reviewed and interpreted by me, shows normal sinus rhythm, ec2 rate of 89, no acute ST segment elevations, intervals are nonactionable, PVC noted.. 11:31 ED course: CBC, metabolic profile and troponin are nonactionable. Patient reports some ec2 improvement in symptoms, will obtain CT scan of the head as well as give her a dose of Valium for her dizziness.. 12:34 ED course: Negative CT imaging, on reassessment patient with improvement in symptoms. ec2 Will discharge home. Return precautions given.. 06/02 10:44 Order name: CBC with Diff; Complete Time: 11:14 ec2 06/02 10:44 Order name: BMP; Complete Time: 11:27 ec2 06/02 10:44 Order name: Troponin High Sensitivity; Complete Time: 11:27 ec2 06/02 11:31 Order name: CT Head Brain wo Cont; Complete Time: 12:20 ec2 06/02 10:44 Order name: IV; Complete Time: 10:57 ec2 06/02 10:44 Order name: EKG - Nurse/Tech; Complete Time: 10:54 ec2 Administered Medications: 11:07 Drug: metoCLOPramide IVP 10 mg IVP once; over 1 to 2 minutes Route: IVP; Site: right bp forearm; 12:49 Follow up: Response: No adverse reaction bp 11:07 Drug: diphenhydrAMINE IVP 25 mg IVP once Route: IVP; Site: right forearm; bp 12:49 Follow up: Response: No adverse reaction bp 11:07 Drug: NS 0.9% IV 500 ml 500 ml IV at 1 bolus once; to be given as a bolus over 30 bp minutes Volume: 500 ml; Route: IV; Rate: 1 bolus; Site: right forearm; 12:49 Follow up: IV Status: Completed infusion bp 11:48 Drug: Diazepam IVP 1 mg IVP once Route: IVP; Site: right forearm; bp 12:48 Follow up: Response: No adverse reaction bp 11:49 Drug: NS 0.9% IV 1000 ml IV at 1 bolus Per protocol; to be given as a bolus over 60 bp minutes Route: IV; Rate: 1 bolus; Site: right forearm; 12:48 Follow up: IV Status: Completed infusion bp Disposition Summary: 06/02/24 12:34 Discharge Ordered Notes: Location: Home ec2 Condition: Stable ec2 Diagnosis - Dizziness and giddiness ec2 Followup: ec2 - With: Lele Bellamy MD - When: - Reason: Recheck today's complaints Discharge Instructions: - Discharge Summary Sheet ec2 - Dizziness, [id number] ec2 Forms: - Medication Reconciliation Form ec2 - Antibiotic Education ec2 - Prescription Opioid Use ec2 - Patient Portal Instructions ec2 - Leadership Thank You Letter ec2 Prescriptions: - Compazine 10 mg Oral Tablet - take 1 tablet ORAL route every 8 hours As needed; 20 tablet; Refills: 0, ec2 Product Selection Permitted Signatures: Dispatcher [employer] Davy Levine, RN RN bp Martinez Taylor MD MD ec2 Corrections: (The following items were deleted from the chart) 10:45 10:45 CBC+H.LAB.BRZ ordered. EDMS EDMS 10:45 10:45 BASIC METABOLIC PANEL+C.LAB.BRZ ordered. EDMS EDMS 10:45 10:45 Troponin High Sensitivity+C.LAB.BRZ ordered. EDMS EDMS
--- NOTE | 2024-06-02 12:34 | ER ---
Nurse's Notes [facility] Name: Ghazala Orozco Age: 84 yrs Sex: Female : 1940 Arrival Date: 06/02/2024 Time: 10:15 Bed 4 Private MD: Diagnosis: Dizziness and giddiness Presentation: 06/02 10:47 Chief complaint: Patient states: DIZZY SPELLS x WEEKS, SEEN FOR SAME RECENTLY, NO F/U bp WITH NEURO YET. Coronavirus screen: At this time, the client does not indicate any symptoms associated with coronavirus-19. Ebola Screen: No symptoms or risks identified at this time. Initial Sepsis Screen: Does the patient meet any 2 criteria? No. Patient's initial sepsis screen is negative. Does the patient have a suspected source of infection? No. Patient's initial sepsis screen is negative. Risk Assessment: Do you want to hurt yourself or someone else? Patient reports no desire to harm self or others. Onset of symptoms is unknown. 10:47 Method Of Arrival: Wheelchair bp 10:47 Acuity: SANDY 3 bp Triage Assessment: 10:48 General: Appears in no apparent distress. Behavior is cooperative, appropriate for age, bp anxious. Pain: Denies pain. EENT: No deficits noted. Neuro: Reports dizziness. Cardiovascular: Rhythm is sinus rhythm. Respiratory: No deficits noted. GI: No deficits noted. : No signs and/or symptoms were reported regarding the genitourinary system. Derm: No deficits noted. Musculoskeletal: No deficits noted. Historical: - Allergies: 10:48 Codeine; bp 10:48 NSAIDS; bp 10:48 tramadol; bp - PSHx: 10:48 hysterectomy; Left hip replacement; bp - Immunization history:: Adult Immunizations up to date. - Infectious Disease History:: Denies. - Social history:: Smoking status: Patient denies any tobacco usage or history of. Screenin:49 [facility] ED Fall Risk Assessment (Adult) History of falling in the last 3 months, bp including since admission No falls in past 3 months (0 pts) Confusion or Disorientation No (0 pts) Intoxicated or Sedated No (0 pts) Impaired Gait No (0 pts) Mobility Assist Device Used No (0 pt) Altered Elimination No (0 pt) Score/Fall Risk Level 0 - 2 = Low Risk Oriented to surroundings. Abuse screen: Denies threats or abuse. Denies injuries from another. Nutritional screening: No deficits noted. Tuberculosis screening: No symptoms or risk factors identified. Assessment: 10:50 General: Appears in no apparent distress. Behavior is cooperative, appropriate for age, bp anxious. 11:49 Reassessment: Patient appears in no apparent distress at this time. Patient is alert, bp oriented x 3, equal unlabored respirations, skin warm/dry/pink. 12:47 Reassessment: Patient appears in no apparent distress at this time. Patient is alert, bp oriented x 3, equal unlabored respirations, skin warm/dry/pink. Vital Signs: 10:47 BP 132 / 94; Pulse 62; Resp 16; Temp 98; Pulse Ox 96% ; bp 11:49 BP 113 / 79; Pulse 85; Resp 16; Pulse Ox 96% ; bp 12:47 BP 135 / 80; Pulse 88; Resp 15; Pulse Ox 94% ; bp ED Course: 10:16 Patient arrived in ED. ra3 10:16 Martinez Taylor MD is Attending Physician. ec2 10:47 Davy Gentile, AIMEE is Primary Nurse. bp 10:48 Triage completed. bp 10:48 Arm band placed on. bp 10:49 Patient has correct armband on for positive identification. bp 10:59 Initial lab(s) drawn, by me, sent to lab. Inserted saline lock: 22 gauge in right bp forearm, using aseptic technique. Blood collected. Flushed with 10 mL NS. 11:59 CT Head Brain wo Cont In Process Unspecified. EDMS 12:34 Lele Bellamy MD is Referral Physician. ec2 12:47 No provider procedures requiring assistance completed. IV discontinued, intact, bp bleeding controlled, No redness/swelling at site. Pressure dressing applied. Administered Medications: 11:07 Drug: metoCLOPramide IVP 10 mg IVP once; over 1 to 2 minutes Route: IVP; Site: right bp forearm; 12:49 Follow up: Response: No adverse reaction bp 11:07 Drug: diphenhydrAMINE IVP 25 mg IVP once Route: IVP; Site: right forearm; bp 12:49 Follow up: Response: No adverse reaction bp 11:07 Drug: NS 0.9% IV 500 ml 500 ml IV at 1 bolus once; to be given as a bolus over 30 bp minutes Volume: 500 ml; Route: IV; Rate: 1 bolus; Site: right forearm; 12:49 Follow up: IV Status: Completed infusion bp 11:48 Drug: Diazepam IVP 1 mg IVP once Route: IVP; Site: right forearm; bp 12:48 Follow up: Response: No adverse reaction bp 11:49 Drug: NS 0.9% IV 1000 ml IV at 1 bolus Per protocol; to be given as a bolus over 60 bp minutes Route: IV; Rate: 1 bolus; Site: right forearm; 12:48 Follow up: IV Status: Completed infusion bp Medication: 12:48 VIS not applicable for this client. bp Outcome: 12:34 Discharge ordered by . ec2 12:47 Discharged to home via wheelchair, with family, bp 12:47 Condition: stable 12:47 Discharge instructions given to patient, family, Instructed on discharge instructions, follow up and referral plans. medication usage, Demonstrated understanding of instructions, follow-up care, medications, Prescriptions given X 1, 12:59 Patient left the ED. bp Signatures: Dispatcher [employer] Davy Levine, AIMEE RN bp Martinez Taylor MD MD ec2 Chel Dougherty ra3
[2024-06-02 13:08] VITALS: TEMP 98
[2024-06-02 13:09] VITALS: BP 135/80; O2SAT 94
== END 2024-06-02 12:59 | disposition home or self-care (01) ==
LOC: ER 10:15
DX: R42 Dizziness and giddiness (principal); R11.0 Nausea
CPT/HCPCS: 96361; 93005; 85025; 80048; 36415; 84484; 70450; 96375; 96374; 99284; J2765; J1200; J3360; J7040